=== PATIENT | male | born 1965 | race Caucasian/White ===

== ENCOUNTER → 2016-07-24 | Outpatient (CLI) | payer BC ==
--- NOTE | 2016-07-24 09:43 | FL ---
EXAMINATION TYPE: FL UGI DATE OF EXAM: 07/24/2016 9:27 AM COMPARISON: April 10, 2008 HISTORY: 50-year-old male with dysphagia, gagging, feeling of fullness at the mid chest level. Waking up coughing at night. TECHNIQUE: A double contrast UGI study is performed. FINDINGS: The esophagus shows normal motility and emptying into the stomach. There is a small sliding hiatal hernia but multiple episodes of severe gastroesophageal reflux even w ith small changes in positioning when the patient is supine. The stomach shows normal distensibility and mucosal folds. No abnormal filling defects. The duodenal bulb, sweep, and proximal small bowel loops are unremarkable. IMPRESSION: 1. Small sliding hiatal hernia but with multiple episodes of severe gastroesophageal reflux. This occ urs with even small changes in positioning when the patient is supine. 2. Otherwise, unremarkable upper GI examination.
== END | disposition home or self-care (01) ==
LOC: RADFLWHC 08:35
PROVIDERS: ATTEND Family Medicine
DX: K21.9 Gastro-esophageal reflux disease without esophagitis (principal); K44.9 Diaphragmatic hernia without obstruction or gangrene
CPT/HCPCS: 74240

== ENCOUNTER 2016-08-21 12:11 | Day surgery (SDC) | payer BC ==
[2016-08-20 09:05] VITALS: BMI 48.6
[~2016-08-21 12:11] MED LIST: LACTATED RINGERS 1,000 ML IV SCH; LIDOCAINE 1% 20 ML VIAL (10MG/ML) FOR IV START INTRADERMA PRN
[2016-08-21 13:46] VITALS: RESP 18; TEMP 97.5
[2016-08-21 13:54] LABS: Glucose,Whole Blood 277 mg/dL (75-99)
[2016-08-21] MEDS ORDERED: PROPOFOL 10 MG/ML 20 ML VIAL IV ONE (14:56)
[2016-08-21 15:23] LABS: Glucose,Whole Blood 219 mg/dL (75-99)
[2016-08-21 15:51] VITALS: BP 131/83; PULSE 80
--- NOTE | 2016-08-21 16:22 | P.PCN ---
Date of Procedure: 08/21/16 Preoperative Diagnosis: Postoperative Diagnosis: Procedure(s) Performed: Procedure: Esophagogastroduodenoscopy and biopsy. Preoperative diagnosis: Chronic reflux symptoms. Postoperative diagnosis: 1. Sliding hiatal hernia with no obvious esophagitis or complicated reflux disease. 2. Widely patent mucosal ring at the level of the GE junction. 3. Mild gastritis. Multiple biopsies obtained from the duodenum, antrum, esophagus as well as separate biopsies from the GE junction. Preparation and sedation were provided by anesthesia. Brief clinical history: The patient is a 50-year-old male who is referred for this evaluation because of chronic gastroesophageal reflux symptoms including episodes of nocturnal reflux and aspiration and cough as well as intermittent dysphagia. There is no overt bleeding or weight loss. The patient has been started on omeprazole recently and these reporting signs of improvement. This evaluation is to assess for esophagitis, complicated reflux disease or other pathology. Procedure: With the patient on his left lateral decubitus position and after informed consent and adequate sedation, I passed the Olympus-GIF 160 video upper endoscope through the cricopharyngeus down the esophagus. GE junction was irregular and there was a sliding hiatal hernia around 2-3 cm in size, but there was no obvious esophagitis, strictures, Gong's esophagus or other pathology. At the level of the GE junction there was a widely patent mucosal ring that did not impede the advancement of the endoscope and its size, both in the forward view as well as in the retroflex view in the cardia, showed no need for dilation. But because of his symptoms, I still took biopsies at the level of the GE junction attempting to break the continuity of this ring. The stomach was insufflated with air and examined in detail including the retroflex view in the cardia as mentioned. There was some mottling and erythema in the antrum but no ulcers or erosions. Pyloric channel, duodenal bulb, post bulbar area and descending duodenum showed minimal erythema. Because of his symptoms I obtained biopsies from the duodenum, antrum, esophagus as well as the GE junction before the endoscope was withdrawn. The patient tolerated the procedure well Plan: The patient was reassured and I discussed with his parents who are accompanying him for this procedure today. Will await biopsy results. With his improvement on this regimen, I suggested that he continue the same and to follow up with you as planned. I would be happy to see in the office if his symptoms do not continue to improve or if there is a setback. Implants: Indications for Procedure: Operative Findings: Description of Procedure:
== END 2016-08-21 15:53 | disposition home or self-care (01) ==
LOC: ORWHC2ENDO 12:11
DX: K21.9 Gastro-esophageal reflux disease without esophagitis (principal); K29.50 Unspecified chronic gastritis without bleeding; K44.9 Diaphragmatic hernia without obstruction or gangrene; I10 Essential (primary) hypertension; E11.9 Type 2 diabetes mellitus without complications; Z79.84 Long term (current) use of oral hypoglycemic drugs; Z79.4 Long term (current) use of insulin; Z79.899 Other long term (current) drug therapy
CPT/HCPCS: 43239; 88305; 88342; J2704

== ENCOUNTER → 2017-01-30 | Outpatient (CLI) | payer BC ==
--- NOTE | 2017-01-30 13:02 | MR ---
EXAMINATION TYPE: MR lumbar spine wo con DATE OF EXAM: 01/30/2017 COMPARISON: NONE HISTORY: 51-year-old male with pain TECHNIQUE: Multiplanar, multisequence images of the lumbar spine were acquired. FINDINGS: Vertebral body heights are preserved. Alignment is maintained. Mild heterogeneous marrow signal without suspicious bone marrow placement. A some fatty Modic type II endplate changes anteriorly at L3-L4. Variable minimal disc desiccation lower lumbar spine, more mild to moderate at L5-S1 with some vacuum phenomenon and bulging disc. Posterior annular fissure is also noted here. Unable to accurately determine the level of the conus medullaris due to marked crowding of the cauda equina nerve roots secondary to underlying congenital spinal canal stenosis. AP canal dimension measu res only 9 mm in the mid to lower lumbar spine and additionally, there is some mildly prominent epidu ral fat in the lower lumbar spine. At T12-L1, mild overall spinal canal narrowing without cord compression or neural foraminal stenosis. At L1-L2, mild overall spinal canal narrowing without cord compression or neuroforaminal stenosis. At L2-L3, there is complete effacement of CSF signal due to the congenital spinal canal narrowing. Mi ld facet degenerative change without significant neuroforaminal stenosis. At L3-L4, there is facet degenerative change, congenital canal narrowing, and mildly prominent epidur al fat. Overall moderate spinal canal stenosis with minimal CSF signal at this level. No significant neuroforaminal stenosis. At L4-L5, mild congenital canal narrowing and mild facet degenerative change. Mild overall spinal can al stenosis and no neuroforaminal stenosis. At L5-S1, bulging disc with posterior annular fissure, congenital canal narrowing, and prominent epid ural fat. Changes result in moderate overall thecal sac compression with moderate bilateral neurofora char stenosis. No prevertebral or paravertebral soft tissue abnormality seen. IMPRESSION: 1. 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 This re sults in complete effacement of CSF signal at L2-L3 suggesting a relative moderate to severe spinal c anal stenosis. 2. Overall moderate spinal canal stenosis at L3-L4 with only minimal CSF signal seen at this level. 3. Mild overall spinal canal stenosis at L4-L5 and moderate at L5-S1 as there is superimposed degener ative disc disease and some prominent epidural fat. 4. Moderate bilateral neuroforaminal stenoses at L5-S1. 5. Note that we are unable to accurately determine the level of the conus medullaris due to marked cr owding of the cauda equina nerve roots.
== END | disposition home or self-care (01) ==
LOC: RADMRIMAIN 12:03
PROVIDERS: ATTEND Physician Assistant
DX: M48.061 Spinal stenosis, lumbar region without neurogenic claudication (principal); M99.73 Connective tissue and disc stenosis of intervertebral foramina of lumbar region; M51.36 Other intervertebral disc degeneration, lumbar region; M51.37 Other intervertebral disc degeneration, lumbosacral region
CPT/HCPCS: 72148

== ENCOUNTER 2019-05-09 20:07 | Inpatient (IN) | payer BC ==
[2019-05-09] MEDS ORDERED: VANCOMYCIN IV PER PHARMACY 1 EACH MISC MISCELLANE PRN (21:38)
[2019-05-09] MEDS ORDERED: PIPERACILLIN-TAZOBACTAM 3.375 GM in SODIUM CHLORIDE 0.9% 100 ML IVPB STA (21:38)
--- NOTE | 2019-05-09 21:38 | ED ---
Skin/Abscess/FB HPI - General Chief complaint: Skin/Abscess/Foreign Body Stated complaint: infection in arm/hand Time Seen by Provider: 05/09/19 21:14 Source: patient Mode of arrival: ambulatory Limitations: no limitations - History of Present Illness Initial comments: Sven is a 53-year-old diabetic male with a history of staph skin infections in the past. Patient presents the emergency department today for evaluation of worsening infection on his right hand and right forearm. Patient reports that he noticed some redness and what looked to him like small bug bites similar to his previous staph infection. He noticed these on his hand yesterday and was evaluated in the clinic where he was prescribed Bactrim. Patient reports she's been compliant with this medication but is noticed progressively worsening swelling redness and pain. Patient reports he has abscesses on both the back of his hand and dorsal surface of his right forearm. He has a healing abscess on his left middle finger as well. Patient reports that today been unable to con trol his sugars this combined with his infection prompted him to the ER for further evaluation. - Related Data Home Medications Medication Instructions Recorded Confirmed Insulin Lispro [humaLOG Kwikpen] 0 unit SQ TID-W/MEALS PRN 08/20/16 08/21/16 Lisinopril [Zestril] 10 mg PO DAILY 08/20/16 08/21/16 Omeprazole [PriLOSEC] 20 mg PO BID 08/20/16 08/21/16 metFORMIN HCL [Metformin HCl] 1,000 mg PO BID 08/20/16 08/21/16 Allergies Allergy/AdvReac Type Severity Reaction Status Date / Time No Known Allergies Allergy Verified 05/09/19 20:28 Review of Systems ROS Statement: Those systems with pertinent positive or pertinent negative responses have been documented in the HPI. ROS Other: All systems not noted in ROS Statement are negative. Past Medical History Past Medical History: Diabetes Mellitus, GERD/Reflux, Hypertension Additional Past Medical History / Comment(s): occ. pain with swallowing, hiatal hernia, dry skin, hx kidney stones History of Any Multi-Drug Resistant Organisms: None Reported Past Surgical History: Ear Surgery, Orthopedic Surgery Additional Past Surgical History / Comment(s): cystoscopy/stent in urethra, olga carpal tunnel, trigger finger left thumb, rt thumb surgery Past Anesthesia/Blood Transfusion Reactions: Motion Sickness Additional Past Anesthesia/Blood Transfusion Reaction / Comment(s): dizziness Past Psychological History: No Psychological Hx Reported Smoking Status: Former smoker - Past Family History Mother Family Medical History: No Reported History General Exam - General Exam Comments Initial Comments: Physical Exam GENERAL: Patient is well-developed and well-nourished. Patient is nontoxic and well-hydrated and is in no distress. HENT: Normocephalic, Atraumatic. EYES: PERRL, EOMI PULMONARY: Unlabored respirations. CARDIOVASCULAR: RRR ABDOMEN: Soft and nontender with normal bowel sounds. Obese SKIN: There are small abscess on the dorsum of the right hand and right forearm, erythema and induration of the forearm and hand consistent with cellulitis No fusiform swelling of the fingers, no pain with passive extension, no tenderness along flexor sheath - No concern for flexor tenosynovitis : Deferred NEUROLOGIC: Patient is alert and oriented x3. Moving all extremities spontaneously MUSCULOSKELETAL: Normal extremities with adequate strength and full range of motion. No lower extremity swelling or edema. No calf tenderness. PSYCHIATRIC: Normal psychiatric evaluation. Limitations: no limitations Course Vital Signs 05/09/19 20:24 Temperature 98.0 F Pulse Rate 110 H Respiratory 20 Rate Blood Pressure 154/100 O2 Sat by Pulse 97 Oximetry Medical Decision Making - Medical Decision Making The patient was seen and evaluated history is obtained from the patient and signed 53-year-old diabetic male was seen in the office yesterday answered on oral antibiotics which is been compliant with. Patient has worsening cellulitis of the forearm or development of 2 small punctate abscesses with no larger fluctuance amenable to decision and drainage. A septic workup was initiated broad-spectrum antibiotics were ordered Labs resulted with no significant abnormalities aside from profound hyperglycemia likely related to infection Insulin was ordered as well as IV fluids for hyperglycemia Patient care was discussed with admitting physician Dr. Buenrostro, considering that this is a orally controlled diabetic male with obvious infection of the hand and forearm failed outpatient treatment we will plan to admit for IV antibiotics. - Lab Data Result diagrams: 05/09/19 21:40 05/09/19 21:40 Lab Results 05/09/19 05/09/19 05/09/19 Range/Units 21:40 21:40 21:40 WBC 9.8 (3.8-10.6) k/uL RBC 5.56 (4.30-5.90) m/uL Hgb 16.5 (13.0-17.5) gm/dL Hct 49.2 (39.0-53.0) % MCV 88.6 (80.0-100.0) fL MCH 29.6 (25.0-35.0) pg MCHC 33.4 (31.0-37.0) g/dL RDW 12.9 (11.5-15.5) % Plt Count 328 (150-450) k/uL Neutrophils % 74 % Lymphocytes % 18 % Monocytes % 5 % Eosinophils % 2 % Basophils % 0 % Neutrophils # 7.3 (1.3-7.7) k/uL Lymphocytes # 1.7 (1.0-4.8) k/uL Monocytes # 0.5 (0-1.0) k/uL Eosinophils # 0.2 (0-0.7) k/uL Basophils # 0.0 (0-0.2) k/uL PT 9.3 (9.0-12.0) sec INR 0.9 (<1.2) APTT 22.0 (22.0-30.0) sec Sodium 131 L (137-145) mmol/L Potassium 4.5 (3.5-5.1) mmol/L Chloride 95 L (98-107) mmol/L Carbon Dioxide 25 (22-30) mmol/L Anion Gap 11 mmol/L BUN 20 (9-20) mg/dL Creatinine 0.89 (0.66-1.25) mg/dL Est GFR (CKD-EPI)AfAm >90 (>60 ml/min/1.73 sqM) Est GFR (CKD-EPI)NonAf >90 (>60 ml/min/1.73 sqM) Glucose 598 H* (74-99) mg/dL POC Glucose (mg/dL) (75-99) mg/dL POC Glu Clinical Business Analyst ID Plasma Lactic Acid Mike (0.7-2.0) mmol/L Calcium 9.8 (8.4-10.2) mg/dL Total Bilirubin 0.5 (0.2-1.3) mg/dL AST 20 (17-59) U/L ALT 26 (4-49) U/L Alkaline Phosphatase 142 H (38-126) U/L Total Protein 7.3 (6.3-8.2) g/dL Albumin 4.5 (3.5-5.0) g/dL 05/09/19 05/09/19 Range/Units 21:40 22:12 WBC (3.8-10.6) k/uL RBC (4.30-5.90) m/uL Hgb (13.0-17.5) gm/dL Hct (39.0-53.0) % MCV (80.0-100.0) fL MCH (25.0-35.0) pg MCHC (31.0-37.0) g/dL RDW (11.5-15.5) % Plt Count (150-450) k/uL Neutrophils % % Lymphocytes % % Monocytes % % Eosinophils % % Basophils % % Neutrophils # (1.3-7.7) k/uL Lymphocytes # (1.0-4.8) k/uL Monocytes # (0-1.0) k/uL Eosinophils # (0-0.7) k/uL Basophils # (0-0.2) k/uL PT (9.0-12.0) sec INR (<1.2) APTT (22.0-30.0) sec Sodium (137-145) mmol/L Potassium (3.5-5.1) mmol/L Chloride (98-107) mmol/L Carbon Dioxide (22-30) mmol/L Anion Gap mmol/L BUN (9-20) mg/dL Creatinine (0.66-1.25) mg/dL Est GFR (CKD-EPI)AfAm (>60 ml/min/1.73 sqM) Est GFR (CKD-EPI)NonAf (>60 ml/min/1.73 sqM) Glucose (74-99) mg/dL POC Glucose (mg/dL) 534 H (75-99) mg/dL POC Glu Clinical Business Analyst ID [place] Plasma Lactic Acid Mike 1.4 (0.7-2.0) mmol/L Calcium (8.4-10.2) mg/dL Total Bilirubin (0.2-1.3) mg/dL AST (17-59) U/L ALT (4-49) U/L Alkaline Phosphatase (38-126) U/L Total Protein (6.3-8.2) g/dL Albumin (3.5-5.0) g/dL Disposition Clinical Impression: Cellulitis and abscess of hand, Uncontrolled diabetes mellitus Disposition: ADMITTED IP TO THIS HOSP Condition: Serious Is patient prescribed a controlled substance at d/c from ED?: No Referrals: Julian Carranza MD [Primary Care Provider] - 1-2 days
[2019-05-09] MEDS ORDERED: VANCOMYCIN 1,750 MG in SODIUM CHLORIDE 0.9% 500 ML 500 ML IVPB STA (21:43)
[2019-05-09 21:56] LABS: Basophils % (A) 0 %; Eosinophils # (A) 0.2 k/uL (0-0.7); Eosinophils % (A) 2 %; HCT 49.2 % (39.0-53.0); HGB 16.5 gm/dL (13.0-17.5); Lymphocytes # (A) 1.7 k/uL (1.0-4.8); Lymphocytes % (A) 18 %; MCH 29.6 pg (25.0-35.0); MCHC 33.4 g/dL (31.0-37.0); MCV 88.6 fL (80.0-100.0); Mean Platelet Volume 7.4; Monocytes # (A) 0.5 k/uL (0-1.0); Monocytes % (A) 5 %; Neutrophils # (A) 7.3 k/uL (1.3-7.7); Neutrophils % (A) 74 %; Platelet Count 328 k/uL (150-450); RBC 5.56 m/uL (4.30-5.90); RDW 12.9 % (11.5-15.5); WBC 9.8 k/uL (3.8-10.6)
[2019-05-09] MEDS: SODIUM CHLORIDE 0.9% 1,000 ML IV SCH (21:58)
[2019-05-09 22:03] LABS: ALT 26 U/L (4-49); AST 20 U/L (17-59); African American GFR (CKD) >90 (>60 ml/min/1.73 sqM); Albumin 4.5 g/dL (3.5-5.0); Alkaline Phosphatase 142 U/L (38-126); Anion Gap 11 mmol/L; Blood Urea Nitrogen 20 mg/dL (9-20); Calcium 9.8 mg/dL (8.4-10.2); Carbon Dioxide 25 mmol/L (22-30); Chloride 95 mmol/L (98-107); Non-African American GFR(CKD) >90 (>60 ml/min/1.73 sqM); Potassium 4.5 mmol/L (3.5-5.1); Sodium 131 mmol/L (137-145); Total Bilirubin 0.5 mg/dL (0.2-1.3); Total Protein 7.3 g/dL (6.3-8.2)
[2019-05-09 22:07] LABS: Glucose 598 mg/dL (74-99)
[2019-05-09] MEDS ORDERED: INSULIN REGULAR 100 UNIT/ML VIAL SQ ONE (22:13)
[2019-05-09] MEDS ORDERED: NALOXONE 0.4 MG/ML 1 ML VIAL IV PRN (22:16)
[2019-05-09] MEDS: SODIUM CHLORIDE 0.9% 500 ML 500 ML IV SCH ×3 (22:17→22:45)
[2019-05-09 22:20] LABS: Glucose,Whole Blood 534 mg/dL (75-99)
[2019-05-09 22:22] LABS: INR 0.9 (<1.2); Prothrombin Time 9.3 sec (9.0-12.0)
[2019-05-09 23:09] LABS: Glucose,Whole Blood 428 mg/dL (75-99)
--- NOTE | 2019-05-09 23:59 | P.HPIM ---
History of Present Illness H&P Date: 05/09/19 Chief Complaint: right upper extremity abscess 53-year-old male with diabetes on insulin Patient comes in due to 4 day history of right upper extremity abscess and redness. 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 He reports some chills and subjective fever. Reports recent history of similar situation of cellulitis and abscess of his left upper extremity that happened around February 2019. He described the pain as sharp severe pain 10 out of 10 in severity spatially with movement and touching the areas of redness and swelling. He reports draining abscess from his hand over the base of the right index. He also reports recent abscess under his right armpit which was incised. Otherwise he denies any shortness of breath or chest pain he denies any recent traveling or spending any time in the [place]. Patient denies any injuries. To his right upper extremity. He also noted that his blood sugar has been difficult to control over the past few days. Patient otherwise denies any GI symptoms or urinary changes. Patient reports chronic history of peripheral neuropathy in his lower extremities. Review of Systems Pertinent positives as noted in HPI. All other systems were reviewed and are negative Past Medical History Past Medical History: Diabetes Mellitus, GERD/Reflux, Hypertension Additional Past Medical History / Comment(s): occ. pain with swallowing, hiatal hernia, dry skin, hx kidney stones History of Any Multi-Drug Resistant Organisms: None Reported Past Surgical History: Ear Surgery, Orthopedic Surgery Additional Past Surgical History / Comment(s): cystoscopy/stent in urethra, olga carpal tunnel, trigger finger left thumb, rt thumb surgery Past Anesthesia/Blood Transfusion Reactions: Motion Sickness Additional Past Anesthesia/Blood Transfusion Reaction / Comment(s): dizziness Past Psychological History: No Psychological Hx Reported Smoking Status: Former smoker - Past Family History Mother Family Medical History: No Reported History Medications and Allergies Home Medications Medication Instructions Recorded Confirmed Type Insulin Lispro [humaLOG Kwikpen] 20 unit SQ AC-TID 08/20/16 05/09/19 History Omeprazole [PriLOSEC] 20 mg PO DAILY 08/20/16 05/09/19 History Gabapentin 600 mg PO DAILY 05/09/19 05/09/19 History Ibuprofen [Motrin] 800 mg PO AC-TID PRN 05/09/19 05/09/19 History Insulin Glargine,Hum.rec.anlog 40 unit SQ BID 05/09/19 05/09/19 History [Lantus Solostar] Mupirocin 2% Oint [Bactroban 2% 1 applic TOPICAL TID 05/09/19 05/09/19 History Oint] Sulfamethox-Tmp 800-160Mg [Bactrim 1 tab PO Q12H 05/09/19 05/09/19 History DS 800-160 mg] Allergies Allergy/AdvReac Type Severity Reaction Status Date / Time metformin AdvReac Nausea & Verified 05/09/19 22:29 Vomiting & Diarrhea Physical Exam Vitals: Vital Signs Temp Pulse Resp BP Pulse Ox 05/09/19 20:24 98.0 F 110 H 20 154/100 97 Intake and Output 05/09/19 05/09/19 05/09/19 06:59 14:59 22:59 Other: Weight 108.862 kg Constitutional: No acute distress, conversant, pleasant Eyes: Anicteric sclerae, moist conjunctiva, no lid-lag Pupils equal round reactive to light ENMT: NC/AT Oropharynx clear, no erythema, exudates Neck: Supple, FROM, no masses, or JVD No carotid bruits No thyromegaly Lungs: Clear to auscultation Clear to percussion Normal respiratory effort, no accessory muscle use Cardiovascular: Heart regular in rate and rhythm, No murmurs, gallops, or rubs Trace leg edema bilaterally Abdominal: Soft Nontender, no guarding, rebound or rigidity Abdomen moving with respiration Normoactive bowel sounds No hepatomegaly, No splenomegaly No palpable mass No abdominal wall hernia noted Skin: Significant swelling and erythema with induration over the dorsum of right hand with an abscess over the dorsum of base of the right index warm to the touch tender to palpation no active drainage. There is another area of erythema induration and abscess over the ventral aspect of the right mid forearm. Capillary refill is immediate over the right hand Otherwise Normal temperature, tone, texture, turgor Extremities: No digital cyanosis No clubbing Pedal pulses intact and symmetrical Radial pulses intact and symmetrical No calf tenderness Psychiatric: Alert and oriented to person, place and time Appropriate affect fair judgement Neuro Muscles Strength 5/5 in bilateral lower extremities. And left upper extremity.. However right upper extremity distal muscle groups over the right hand in the right forearm limited exam due to pain with active range of motion Sensation to light touch grossly present throughout Cranial nerves II-XII grossly intact No focal sensory deficits Lymphatics: no palpable cervical or supraclavicular , or inguinal lymph nodes Results CBC & Chem 7: 05/09/19 21:40 05/09/19 21:40 Labs: Abnormal Lab Results - Last 24 Hours (Table) 05/09/19 Range/Units 21:40 Sodium 131 L (137-145) mmol/L Chloride 95 L (98-107) mmol/L Glucose 598 H* (74-99) mg/dL Alkaline Phosphatase 142 H (38-126) U/L Assessment and Plan Assessment: 53-year-old male with insulin-dependent diabetes comes in due to cellulitis and abscess of the right upper extremity failed outpatient therapy with oral antibiotics. Admitted as an inpatient with anticipated length of stay more than 2 midnights Plan: right upper extremity cellulitis and abscess failed outpatient therapy IDDM with hyperglycemia pseudohyponatremia due to hyperglycemia plan follow up cultures monitor progress of right upper extremity cellulitis , area was marked empiric ABx with vanco , dosing by pharmacy pain control, with NSAIDs and opioids elevated right upper extremity IVF hydration insulin sliding scale resume home dose of basal insulin Check A1 C CODE STATUS: full code DVT prophylaxis: heparin sc tid Discussed with: Patient, ER, RN Anticipated length of stay > than [address]: home A total of 60 minutes was spent on the care of this complex patient more than 50% of the time was spent in counseling and care coordination.
[2019-05-10] MEDS ORDERED: MORPHINE SULFATE 4 MG/ML SYRINGE IVP PRN
[2019-05-10] MEDS ORDERED: INSULIN DETEMIR (LEVEMIR) 100 UNIT/ML SYR SQ SCH ×2 (03:58)
[2019-05-10] MEDS: SODIUM CHLORIDE 0.9% 1,000 ML IV SCH ×2 (06:05→16:18)
[2019-05-10 06:47] LABS: Glucose,Whole Blood 215 mg/dL (75-99)
[2019-05-10 07:50] LABS: Basophils # (A) 0.1 k/uL (0-0.2); Basophils % (A) 1 %; Eosinophils # (A) 0.3 k/uL (0-0.7); Eosinophils % (A) 4 %; HCT 44.1 % (39.0-53.0); HGB 14.9 gm/dL (13.0-17.5); Lymphocytes # (A) 2.5 k/uL (1.0-4.8); Lymphocytes % (A) 31 %; MCH 29.7 pg (25.0-35.0); MCHC 33.8 g/dL (31.0-37.0); MCV 87.7 fL (80.0-100.0); Mean Platelet Volume 7.4; Monocytes # (A) 0.5 k/uL (0-1.0); Monocytes % (A) 7 %; Neutrophils # (A) 4.4 k/uL (1.3-7.7); Neutrophils % (A) 56 %; Platelet Count 280 k/uL (150-450); RBC 5.03 m/uL (4.30-5.90); RDW 12.9 % (11.5-15.5); WBC 7.9 k/uL (3.8-10.6)
[2019-05-10] MEDS: GABAPENTIN 300 MG CAP PO SCH (07:58)
[2019-05-10] MEDS: PANTOPRAZOLE 40 MG TABLET PO SCH (07:58)
[2019-05-10] MEDS: HEPARIN SODIUM,PORCINE 5,000 UNIT/ML 1 ML VIAL SQ SCH ×4 (07:59→23:35)
[2019-05-10 08:05] LABS: African American GFR (CKD) >90 (>60 ml/min/1.73 sqM); Anion Gap 8 mmol/L; Blood Urea Nitrogen 16 mg/dL (9-20); Calcium 8.9 mg/dL (8.4-10.2); Carbon Dioxide 23 mmol/L (22-30); Chloride 104 mmol/L (98-107); Glucose 224 mg/dL (74-99); Non-African American GFR(CKD) >90 (>60 ml/min/1.73 sqM); Potassium 4.1 mmol/L (3.5-5.1); Sodium 135 mmol/L (137-145)
[2019-05-10] MEDS: INSULIN ASPART (NovoLOG) 100 UNIT/ML VIAL SQ SCH ×7 (08:06→20:25)
[2019-05-10] MEDS ORDERED: VANCOMYCIN 1,750 MG in SODIUM CHLORIDE 0.9% 500 ML 500 ML IVPB SCH (10:00)
[2019-05-10 11:37] LABS: Glucose,Whole Blood 64 mg/dL (75-99)
[2019-05-10 12:03] LABS: Glucose,Whole Blood 78 mg/dL (75-99)
--- NOTE | 2019-05-10 15:54 | P.PN ---
Progress Note - Text Progress Note Date: 05/10/19 Presenting complaint: Redness right hand History of presenting complaint: Patient admitted with areas of localized abscess in the right hand for an right armpit and surrounding cellulitis. Failed outpatient treatment with Bactrim. No fevers. Started with with IV vancomycin. Today-redness in the right arm is much improved. Areas of localized boil on the right hand laly and the armpit feeling much better. No fever no chills. Able to use his hand better. Review of systems: Was done for constitutional, cardiovascular, GI, pulmonary. relevant finding as above Active Medications Gabapentin (Neurontin) 600 mg PO DAILY [facility] Last Admin: 05/10/19 07:58 Dose: 600 mg Documented by: Heparin Sodium (Porcine) (Heparin) 5,000 unit SQ Q8H [facility] Last Admin: 05/10/19 07:59 Dose: 5,000 unit Documented by: Vancomycin HCl 1,750 mg/ (Sodium Chloride) 500 mls @ 167 mls/hr IVPB Q8H [facility] Ibuprofen (Motrin) 800 mg PO AC-TID PRN PRN Reason: Pain Insulin Aspart (Novolog) 0 unit SQ ACHS [facility]; Protocol Last Admin: 05/10/19 11:49 Dose: Not Given Documented by: Insulin Aspart (Novolog) 15 unit SQ AC-TID [facility] Insulin Detemir (Levemir) 60 unit SQ HS [facility] Miscellaneous Information (Vancomycin Trough Due) 0 each MISCELLANE DIRECTED ONE Stop: 05/11/19 17:01 Morphine Sulfate (Morphine Sulfate (Inj)) 4 mg IVP Q4HR PRN PRN Reason: Pain Last Admin: 05/10/19 08:00 Dose: 4 mg Documented by: Naloxone HCl (Narcan) 0.2 mg IV Q2M PRN PRN Reason: Opioid Reversal Pantoprazole Sodium (Protonix) 40 mg PO DAILY [facility] Last Admin: 05/10/19 07:58 Dose: 40 mg Documented by: On examination: VITAL SIGNS: 97, 76, 20, 120/80, 100% on room air GENERAL APPEARANCE: BMI 36.5, sitting up on the bed, comfortable. HEENT: Normal external appearance of nose and ear. Oral cavity normal EYES: Pupils equal. Conjunctiva normal. NECK: JVD not raised. Mass not palpable. RESPIRATORY: Respiratory effort normal. Lungs clear to auscultation. CARDIOVASCULAR: First and second sounds normal. No edema. ABDOMEN: Soft. Liver and spleen not palpable. No tenderness. No mass palpable. PSYCHIATRY: Alert and oriented x3. Mood and affect normal. EXTREMITIES: Area that was skin marked greatly improved redness. Patient has a boil on the dorsum of the right hand, also on the forehead, and the right armpit, minimal tenderness INVESTIGATIONS, reviewed in the clinical context: White count 7.9 hemoglobin 40.9 platelets 280 potassium 4.1 creatinine 0.72 Accu-Cheks 215, 64, 78 Assessment: -Acute severe cellulitis and localized abscess in 3 different spots in the patient's had previous infection of the arm. Having failed outpatient treatment with Bactrim. Responding to vancomycin. -Obesity BMI 36.5 -Diabetes mellitus type 2, uncontrolled with hypoglycemia -GERD -Essential hypertension -Hiatal hernia Plan: Continue with IV vancomycin at least for 24 hours. Discussed with the patient. Did advise him to use gloves as a skin is rather dry. He has been more cautious for the same. We'll contact the Levemir to 60 units subcu daily at bedtime. Also cut back on the scheduled NovoLog to 15 units with meals. Follow Accu- Cheks closely.
[2019-05-10 16:14] LABS: Hemoglobin A1C 12.9 % (4.0-6.0)
[2019-05-10 17:07] LABS: Glucose,Whole Blood 202 mg/dL (75-99)
[2019-05-10] MEDS: VANCOMYCIN 1,750 MG in SODIUM CHLORIDE 0.9% 500 ML 500 ML IVPB SCH (17:27)
[2019-05-10] MEDS: IBUPROFEN 800 MG TAB PO PRN (18:27)
[2019-05-10 19:51] LABS: Glucose,Whole Blood 212 mg/dL (75-99)
[2019-05-10] MEDS ORDERED: ONDANSETRON 4 MG/2 ML VIAL IVP PRN (20:08)
[2019-05-10] MEDS: INSULIN DETEMIR (LEVEMIR) 100 UNIT/ML SYR SQ SCH (20:25)
[2019-05-11] MEDS: VANCOMYCIN 1,750 MG in SODIUM CHLORIDE 0.9% 500 ML 500 ML IVPB SCH ×3 (02:51→18:01)
[2019-05-11 07:00] LABS: Glucose,Whole Blood 80 mg/dL (75-99)
[2019-05-11] MEDS: INSULIN ASPART (NovoLOG) 100 UNIT/ML VIAL SQ SCH ×7 (07:35→20:25)
[2019-05-11] MEDS: PANTOPRAZOLE 40 MG TABLET PO SCH (08:19)
[2019-05-11] MEDS: HEPARIN SODIUM,PORCINE 5,000 UNIT/ML 1 ML VIAL SQ SCH ×3 (08:19→23:32)
[2019-05-11] MEDS: GABAPENTIN 300 MG CAP PO SCH (08:19)
[2019-05-11 11:01] LABS: Glucose,Whole Blood 163 mg/dL (75-99)
[2019-05-11 12:07] VITALS: BMI 36.5
[2019-05-11 16:56] LABS: Glucose,Whole Blood 79 mg/dL (75-99)
[2019-05-11] MEDS ORDERED: VANCOMYCIN TROUGH DUE 1 EACH MISC MISCELLANE ONE (17:00)
[2019-05-11 20:02] LABS: Glucose,Whole Blood 237 mg/dL (75-99)
--- NOTE | 2019-05-11 20:16 | P.PN ---
Progress Note - Text Progress Note Date: 05/11/19 Presenting complaint: Redness right hand History of presenting complaint: Patient admitted with areas of localized abscess in the right hand for an right armpit and surrounding cellulitis. Failed outpatient treatment with Bactrim. No fevers. Started with with IV vancomycin. Today-. Wrist and the arm is slowly improving. Some areas of localized abscess slowly improving. No fever or chills. Review of systems: Was done for constitutional, cardiovascular, GI, pulmonary. relevant finding as above Active Medications Gabapentin (Neurontin) 600 mg PO DAILY [facility] Last Admin: 05/11/19 08:19 Dose: 600 mg Documented by: Heparin Sodium (Porcine) (Heparin) 5,000 unit SQ Q8H [facility] Last Admin: 05/11/19 17:44 Dose: Not Given Documented by: Vancomycin HCl 1,750 mg/ (Sodium Chloride) 500 mls @ 167 mls/hr IVPB Q8H [facility] Stop: 05/11/19 21:00 Last Admin: 05/11/19 18:01 Dose: 167 mls/hr Documented by: Vancomycin HCl 1,500 mg/ (Sodium Chloride) 250 mls @ 125 mls/hr IVPB Q8H [facility] Ibuprofen (Motrin) 800 mg PO AC-TID PRN PRN Reason: Pain Last Admin: 05/10/19 18:27 Dose: 800 mg Documented by: Insulin Aspart (Novolog) 0 unit SQ ACHS [facility]; Protocol Last Admin: 05/11/19 17:43 Dose: Not Given Documented by: Insulin Aspart (Novolog) 15 unit SQ AC-TID [facility] Last Admin: 05/11/19 17:43 Dose: Not Given Documented by: Insulin Detemir (Levemir) 60 unit SQ HS [facility] Last Admin: 05/10/19 20:25 Dose: 60 unit Documented by: Morphine Sulfate (Morphine Sulfate (Inj)) 4 mg IVP Q4HR PRN PRN Reason: Pain Last Admin: 05/10/19 08:00 Dose: 4 mg Documented by: Naloxone HCl (Narcan) 0.2 mg IV Q2M PRN PRN Reason: Opioid Reversal Ondansetron HCl (Zofran) 4 mg IVP Q6HR PRN PRN Reason: Nausea And Vomiting Last Admin: 05/10/19 20:19 Dose: 4 mg Documented by: Pantoprazole Sodium (Protonix) 40 mg PO DAILY [facility] Last Admin: 05/11/19 08:19 Dose: 40 mg Documented by: On examination: VITAL SIGNS: 98, 82, 20, 120/78, 100% on room air GENERAL APPEARANCE: Laying in bed comfortable. HEENT: Normal external appearance of nose and ear. Oral cavity normal EYES: Pupils equal. Conjunctiva normal. NECK: JVD not raised. Mass not palpable. RESPIRATORY: Respiratory effort normal. Lungs clear to auscultation. CARDIOVASCULAR: First and second sounds normal. No edema. ABDOMEN: Soft. Liver and spleen not palpable. No tenderness. No mass palpable. PSYCHIATRY: Alert and oriented x3. Mood and affect normal. EXTREMITIES: Area that was skin marked greatly improved redness. Patient has a boil on the dorsum of the right hand, also on the forehead, and the right armpit, minimal tenderness INVESTIGATIONS, reviewed in the clinical context: White count 7.9 hemoglobin 40.9 platelets 280 potassium 4.1 creatinine 0.72 Assessment: -Acute severe cellulitis and localized abscess in 3 different spots in the patient's had previous infection of the arm. Having failed outpatient treatment with Bactrim. Responding to vancomycin. -Obesity BMI 36.5 -Diabetes mellitus type 2, uncontrolled with hypoglycemia, improved -GERD -Essential hypertension -Hiatal hernia Plan: Accu-Cheks are doing better. Continue with IV vancomycin. Get ID opinion.
[2019-05-11] MEDS: IBUPROFEN 800 MG TAB PO PRN (20:24)
[2019-05-11] MEDS: INSULIN DETEMIR (LEVEMIR) 100 UNIT/ML SYR SQ SCH (20:26)
[2019-05-12] MEDS: MELATONIN 3 MG TABLET PO SCH ×2 (00:09→21:27)
[2019-05-12] MEDS: VANCOMYCIN 1,500 MG in SODIUM CHLORIDE 0.9% 250 ML IVPB SCH ×3 (03:20→17:57)
[2019-05-12] MEDS: IBUPROFEN 800 MG TAB PO PRN (04:08)
[2019-05-12 07:31] LABS: Glucose,Whole Blood 115 mg/dL (75-99)
[2019-05-12] MEDS: INSULIN ASPART (NovoLOG) 100 UNIT/ML VIAL SQ SCH ×7 (07:33→20:22)
[2019-05-12 07:54] LABS: HCT 43.6 % (39.0-53.0); HGB 14.8 gm/dL (13.0-17.5); MCH 29.7 pg (25.0-35.0); MCHC 33.9 g/dL (31.0-37.0); MCV 87.7 fL (80.0-100.0); Mean Platelet Volume 7.3; Platelet Count 300 k/uL (150-450); RBC 4.98 m/uL (4.30-5.90); WBC 6.5 k/uL (3.8-10.6)
[2019-05-12] MEDS: PANTOPRAZOLE 40 MG TABLET PO SCH (08:00)
[2019-05-12] MEDS: GABAPENTIN 300 MG CAP PO SCH (08:00)
[2019-05-12] MEDS: HEPARIN SODIUM,PORCINE 5,000 UNIT/ML 1 ML VIAL SQ SCH ×2 (08:00→17:57)
[2019-05-12 08:11] LABS: African American GFR (CKD) >90 (>60 ml/min/1.73 sqM); Anion Gap 6 mmol/L; Blood Urea Nitrogen 14 mg/dL (9-20); Calcium 9.2 mg/dL (8.4-10.2); Carbon Dioxide 23 mmol/L (22-30); Chloride 107 mmol/L (98-107); Glucose 115 mg/dL (74-99); Non-African American GFR(CKD) >90 (>60 ml/min/1.73 sqM); Potassium 4.1 mmol/L (3.5-5.1); Sodium 136 mmol/L (137-145)
[2019-05-12 11:53] LABS: Glucose,Whole Blood 78 mg/dL (75-99)
--- NOTE | 2019-05-12 17:24 | P.PN ---
Progress Note - Text Progress Note Date: 05/12/19 Presenting complaint: Redness right hand History of presenting complaint: Patient admitted with areas of localized abscess in the right hand for an right armpit and surrounding cellulitis. Failed outpatient treatment with Bactrim. No fevers. Started with with IV vancomycin. Today-. Pain swelling is improving. On IV vancomycin. ID has been consulted. Review of systems: Was done for constitutional, cardiovascular, GI, pulmonary. relevant finding as above Active Medications Gabapentin (Neurontin) 600 mg PO DAILY [facility] Last Admin: 05/12/19 08:00 Dose: 600 mg Documented by: Heparin Sodium (Porcine) (Heparin) 5,000 unit SQ Q8H [facility] Last Admin: 05/12/19 08:00 Dose: 5,000 unit Documented by: Vancomycin HCl 1,500 mg/ (Sodium Chloride) 250 mls @ 125 mls/hr IVPB Q8H [facility] Last Admin: 05/12/19 10:40 Dose: 125 mls/hr Documented by: Ibuprofen (Motrin) 800 mg PO AC-TID PRN PRN Reason: Pain Last Admin: 05/12/19 04:08 Dose: 800 mg Documented by: Insulin Aspart (Novolog) 0 unit SQ ACHS [facility]; Protocol Last Admin: 05/12/19 12:38 Dose: Not Given Documented by: Insulin Aspart (Novolog) 15 unit SQ AC-TID [facility] Last Admin: 05/12/19 13:42 Dose: 15 unit Documented by: Insulin Detemir (Levemir) 60 unit SQ [facility] Last Admin: 05/11/19 20:26 Dose: 60 unit Documented by: Melatonin (Melatonin) 3 mg PO [facility] Last Admin: 05/12/19 00:09 Dose: 3 mg Documented by: Morphine Sulfate (Morphine Sulfate (Inj)) 4 mg IVP Q4HR PRN PRN Reason: Pain Last Admin: 05/10/19 08:00 Dose: 4 mg Documented by: Naloxone HCl (Narcan) 0.2 mg IV Q2M PRN PRN Reason: Opioid Reversal Ondansetron HCl (Zofran) 4 mg IVP Q6HR PRN PRN Reason: Nausea And Vomiting Last Admin: 05/10/19 20:19 Dose: 4 mg Documented by: Pantoprazole Sodium (Protonix) 40 mg PO DAILY [facility] Last Admin: 05/12/19 08:00 Dose: 40 mg Documented by: On examination: VITAL SIGNS: 98, 76, 16, 04/04/2006 9, 99% room air GENERAL APPEARANCE: Laying in bed comfortable. HEENT: Normal external appearance of nose and ear. Oral cavity normal EYES: Pupils equal. Conjunctiva normal. NECK: JVD not raised. Mass not palpable. RESPIRATORY: Respiratory effort normal. Lungs clear to auscultation. CARDIOVASCULAR: First and second sounds normal. No edema. ABDOMEN: Soft. Liver and spleen not palpable. No tenderness. No mass palpable. PSYCHIATRY: Alert and oriented x3. Mood and affect normal. EXTREMITIES: Area that was skin marked improved redness. Patient has a boil on the dorsum of the right hand, also on the forehead, and the right armpit, minimal tenderness INVESTIGATIONS, reviewed in the clinical context: White count 6.5 potassium 4.1 Blood cultures negative Assessment: -Acute severe cellulitis and localized abscess in 3 different spots in the patient's had previous infection of the arm. Having failed outpatient treatment with Bactrim. Responding to vancomycin. -Obesity BMI 36.5 -Diabetes mellitus type 2, uncontrolled with hypoglycemia, improved -GERD -Essential hypertension -Hiatal hernia Plan: Continue with IV vancomycin. Discussed with patient. Await ID input.
[2019-05-12 17:27] LABS: Glucose,Whole Blood 84 mg/dL (75-99)
[2019-05-12 20:07] LABS: Glucose,Whole Blood 76 mg/dL (75-99)
[2019-05-12] MEDS: INSULIN DETEMIR (LEVEMIR) 100 UNIT/ML SYR SQ SCH (20:25)
[2019-05-13] MEDS: HEPARIN SODIUM,PORCINE 5,000 UNIT/ML 1 ML VIAL SQ SCH ×4 (00:04→23:27)
[2019-05-13] MEDS: VANCOMYCIN 1,500 MG in SODIUM CHLORIDE 0.9% 250 ML IVPB SCH ×3 (02:29→17:48)
[2019-05-13 07:14] LABS: Glucose,Whole Blood 291 mg/dL (75-99)
--- NOTE | 2019-05-13 07:55 | P.CONS ---
History of Present Illness - Reason for Consult Consult date: 05/12/19 Right hand and arm abscess/cellulitis Requesting physician: Tang Cabrera - Chief Complaint right hand and forearm pain and swelling x few days - History of Present Illness Patient is a 53-year-old male presenting to the ER at [facility] on May 08 for evaluation of worsening pain swelling redness to the right hand and right forearm apparently he noticed an area of 4 swelling redness to the dorsum of the right hand and on the forearm few days ago patient was seen in the outpatient clinic and has been treated with oral Bactrim with the patient has been taking however he noticed to have worsening pain swelling and redness on the dorsal aspect of the right hand and the forearm also noticed to have a pain and swelling to the right axillary area patient describing the pain to be throbbing intensity almost 6-7 out of 10 and no radia tion on arrival to the ER patient has been afebrile he did have a normal white count as well as creatinine patient did have a bedside I&D of the right hand dorsum abscess patient was initially treated with Zosyn and vancomycin subsequently added infectious was consulted for further recommendation regarding antibiotic therapy. Review of Systems Positive point has been mentioned in HPI rest of the systems are negative Past Medical History Past Medical History: Diabetes Mellitus, GERD/Reflux, Hypertension Additional Past Medical History / Comment(s): occ. pain with swallowing, hiatal hernia, dry skin, hx kidney stones History of Any Multi-Drug Resistant Organisms: None Reported Past Surgical History: Ear Surgery, Orthopedic Surgery Additional Past Surgical History / Comment(s): cystoscopy/stent in urethra, olga carpal tunnel, trigger finger left thumb, rt thumb surgery Past Anesthesia/Blood Transfusion Reactions: Motion Sickness Additional Past Anesthesia/Blood Transfusion Reaction / Comm: dizziness Past Psychological History: No Psychological Hx Reported Smoking Status: Former smoker - Past Family History Mother Family Medical History: No Reported History Medications and Allergies Home Medications Medication Instructions Recorded Confirmed Type Insulin Lispro [humaLOG Kwikpen] 20 unit SQ AC-TID 08/20/16 05/09/19 History Omeprazole [PriLOSEC] 20 mg PO DAILY 08/20/16 05/09/19 History Gabapentin 600 mg PO DAILY 05/09/19 05/09/19 History Ibuprofen [Motrin] 800 mg PO AC-TID PRN 05/09/19 05/09/19 History Insulin Glargine,Hum.rec.anlog 40 unit SQ BID 05/09/19 05/09/19 History [Lantus Solostar] Mupirocin 2% Oint [Bactroban 2% 1 applic TOPICAL TID 05/09/19 05/09/19 History Oint] Sulfamethox-Tmp 800-160Mg [Bactrim 1 tab PO Q12H 05/09/19 05/09/19 History DS 800-160 mg] Allergies Allergy/AdvReac Type Severity Reaction Status Date / Time metformin AdvReac Nausea & Verified 05/09/19 22:29 Vomiting & Diarrhea Physical Exam Vitals: Vital Signs Temp Pulse Resp BP Pulse Ox 05/12/19 13:00 98 F 76 16 127/79 99 05/12/19 05:00 97.7 F 73 18 129/72 100 05/11/19 20:33 98 F 82 18 149/90 99 05/11/19 15:32 82 20 Intake and Output 05/11/19 05/12/19 05/12/19 22:59 06:59 14:59 Intake Total 250 250 Balance 250 250 Intake: Intake, IV Titration 250 250 Amount Vancomycin 1,500 mg In 250 250 Sodium Chloride 0.9% 250 ml @ 125 mls/hr IVPB Q8H [facility] Rx#:[id number] Other: Voiding Method Toilet # Voids 2 # Bowel Movements 1 GENERAL DESCRIPTION: Middle-aged male lying in bed, no distress. No tachypnea or accessory muscle of respiration use. HEENT: Shows Pallor , no scleral icterus. Oral mucous membrane is dry. NECK: Trachea central, no thyromegaly. LUNGS: Unlabored breathing. Clear to auscultation anteriorly. No wheeze or crackle. HEART: S1, S2, regular rate and rhythm. ABDOMEN: Soft, no tenderness , guarding or rigidity EXTREMITIES: No edema of feet. SKIN: Right hand dorsum did have an area of induration and open wound after I&D with minimal purulent drainage with surrounding swelling redness , right forearm also have an area of induration with surrounding swelling redness and tenderness NEUROLOGICAL: The patient is awake, alert, oriented x3, mood and affect normal. Results CBC & Chem 7: 05/12/19 07:02 05/12/19 07:02 Labs: Abnormal Lab Results - Last 24 Hours (Table) 05/11/19 05/12/19 05/12/19 Range/Units 20:01 07:02 07:21 Sodium 136 L (137-145) mmol/L Glucose 115 H (74-99) mg/dL POC Glucose (mg/dL) 237 H 115 H (75-99) mg/dL Microbiology - Last 24 Hours (Table) 05/09/19 21:40 Blood Culture - Preliminary Blood No Growth after 48 hours Assessment and Plan Assessment: -patient presented hospital with right hand dorsal and the forearm abscess and cellulitis which apparently started as folliculitis likely representing staphylococcal infection failing outpatient oral Bactrim DS therapy concern for possible community associated MRSA (1) Cellulitis and abscess of hand Current Visit: Yes Status: Acute Code(s): L03.119 - CELLULITIS OF UNSPECIFIED PART OF LIMB; L02.519 - CUTANEOUS ABSCESS OF UNSPECIFIED HAND SNOMED Code(s): 838755929 Plan: 1-vancomycin pharmacy to dose her with a target trough of 15 while watching her kidney function and Vanco trough closely. 2-dry protective dressing to the open area We will follow on clinical condition and cultures to further adjust medication if needed Thank you for this consultation we will follow the patient along with you
[2019-05-13] MEDS: ALPRAZolam 0.25 MG TAB PO PRN ×2 (08:13→22:39)
[2019-05-13] MEDS: PANTOPRAZOLE 40 MG TABLET PO SCH (08:13)
[2019-05-13] MEDS: GABAPENTIN 300 MG CAP PO SCH (08:13)
[2019-05-13] MEDS: INSULIN ASPART (NovoLOG) 100 UNIT/ML VIAL SQ SCH ×7 (08:14→20:21)
[2019-05-13 11:12] LABS: Glucose,Whole Blood 174 mg/dL (75-99)
[2019-05-13 17:04] LABS: Glucose,Whole Blood 151 mg/dL (75-99)
[2019-05-13] MEDS: IBUPROFEN 800 MG TAB PO PRN (19:06)
[2019-05-13 20:06] LABS: Glucose,Whole Blood 215 mg/dL (75-99)
[2019-05-13] MEDS: MELATONIN 3 MG TABLET PO SCH (20:20)
[2019-05-13] MEDS: INSULIN DETEMIR (LEVEMIR) 100 UNIT/ML SYR SQ SCH (20:24)
--- NOTE | 2019-05-13 20:26 | P.PN ---
Progress Note - Text Progress Note Date: 05/13/19 Presenting complaint: Redness right hand History of presenting complaint: Patient admitted with areas of localized abscess in the right hand for an right armpit and surrounding cellulitis. Failed outpatient treatment with Bactrim. No fevers. Started with with IV vancomycin. Today-. Pain swelling slowly continues to improve.. Pending culture results. Saw the patient this morning. Review of systems: Was done for constitutional, cardiovascular, GI, pulmonary. relevant finding as above Active Medications Alprazolam (Xanax) 0.25 mg PO Q6H PRN PRN Reason: Anxiety Last Admin: 05/13/19 08:13 Dose: 0.25 mg Documented by: Gabapentin (Neurontin) 600 mg PO DAILY [facility] Last Admin: 05/13/19 08:13 Dose: 600 mg Documented by: Heparin Sodium (Porcine) (Heparin) 5,000 unit SQ Q8H [facility] Last Admin: 05/13/19 17:48 Dose: 5,000 unit Documented by: Vancomycin HCl 1,500 mg/ (Sodium Chloride) 250 mls @ 125 mls/hr IVPB Q8H [facility] Last Admin: 05/13/19 17:48 Dose: 125 mls/hr Documented by: Ibuprofen (Motrin) 800 mg PO AC-TID PRN PRN Reason: Pain Last Admin: 05/13/19 19:06 Dose: 800 mg Documented by: Insulin Aspart (Novolog) 0 unit SQ [facility]; Protocol Last Admin: 05/13/19 20:21 Dose: 4 unit Documented by: Insulin Aspart (Novolog) 15 unit SQ AC-TID [facility] Last Admin: 05/13/19 17:48 Dose: 15 unit Documented by: Insulin Detemir (Levemir) 60 unit SQ [facility] Last Admin: 05/12/19 20:25 Dose: Not Given Documented by: Melatonin (Melatonin) 3 mg PO [facility] Last Admin: 05/13/19 20:20 Dose: 3 mg Documented by: Miscellaneous Information (Vancomycin Trough Due) 0 each [facility] DIRECTED ONE Stop: 05/14/19 09:01 Morphine Sulfate (Morphine Sulfate (Inj)) 4 mg IVP Q4HR PRN PRN Reason: Pain Last Admin: 05/10/19 08:00 Dose: 4 mg Documented by: Naloxone HCl (Narcan) 0.2 mg IV Q2M PRN PRN Reason: Opioid Reversal Ondansetron HCl (Zofran) 4 mg IVP Q6HR PRN PRN Reason: Nausea And Vomiting Last Admin: 05/10/19 20:19 Dose: 4 mg Documented by: Pantoprazole Sodium (Protonix) 40 mg PO DAILY [facility] Last Admin: 05/13/19 08:13 Dose: 40 mg Documented by: On examination: VITAL SIGNS: 97.5, 72, 18, 1:30 was sent 8, 98% room air GENERAL APPEARANCE: Laying in bed comfortable. HEENT: Normal external appearance of nose and ear. Oral cavity normal EYES: Pupils equal. Conjunctiva normal. NECK: JVD not raised. Mass not palpable. RESPIRATORY: Respiratory effort normal. Lungs clear to auscultation. CARDIOVASCULAR: First and second sounds normal. No edema. ABDOMEN: Soft. Liver and spleen not palpable. No tenderness. No mass palpable. PSYCHIATRY: Alert and oriented x3. Mood and affect normal. EXTREMITIES: Area that was skin marked improved redness. Patient has a boil on the dorsum of the right hand, also on the forehead, and the right armpit, minimal tenderness INVESTIGATIONS, reviewed in the clinical context: Accu-Cheks noted White count 6.5 potassium 4.1 Blood cultures negative Wound cultures negative to rule out, final pending Assessment: -Acute severe cellulitis and localized abscess in 3 different spots in the patient's had previous infection of the arm. Having failed outpatient treatment with Bactrim. Responding to vancomycin. -Obesity BMI 36.5 -Diabetes mellitus type 2, uncontrolled with hypoglycemia, improved -GERD -Essential hypertension -Hiatal hernia Plan: Awaiting final culture results. Negative till now. Discussed with patient. Discussed with ID doctor ashvin..
--- NOTE | 2019-05-13 21:35 | PN ---
PROGRESS NOTE DATE OF SERVICE: 05/13/2019 REASON FOR FOLLOWUP: Right hand dorsum and forearm abscess and cellulitis. INTERVAL HISTORY: The patient is currently afebrile, breathing comfortably. He denies having any chest pain, shortness of breath or cough. Overall pain and swelling to the right hand dorsum and the forearm have slightly decreased. No chest pain, shortness of breath or cough. No abdominal pain or diarrhea. PHYSICAL EXAMINATION: Blood pressure is 130/78 with a pulse of 72, temperature of 97.5. He is 98% on room air. General description is a middle-age male up in the chair in no distress. RESPIRATORY SYSTEM: Unlabored breathing. Clear to auscultation anteriorly. HEART: S1, S2. Regular rate and rhythm. ABDOMEN: Soft. No tenderness. The right hand dorsum and forearm swelling and redness have slightly decreased. No drainage. LABS: Wound cultures are currently pending. DIAGNOSTIC IMPRESSION AND PLAN: Patient with right hand dorsum abscess and forearm abscess and cellulitis. Waiting for the culture to finalize to determine his discharge antibiotics. Keep the patient on IV vancomycin. Monitor clinical course closely. MMODL / IJN: [id number] /
[2019-05-14] MEDS: VANCOMYCIN 1,500 MG in SODIUM CHLORIDE 0.9% 250 ML IVPB SCH ×2 (01:12→08:49)
[2019-05-14 04:55] VITALS: RESP 16
[2019-05-14 07:11] LABS: Glucose,Whole Blood 97 mg/dL (75-99)
[2019-05-14 08:30] LABS: African American GFR (CKD) >90 (>60 ml/min/1.73 sqM); Non-African American GFR(CKD) >90 (>60 ml/min/1.73 sqM)
[2019-05-14] MEDS: INSULIN ASPART (NovoLOG) 100 UNIT/ML VIAL SQ SCH ×4 (08:30→13:08)
[2019-05-14] MEDS: IBUPROFEN 800 MG TAB PO PRN (08:47)
[2019-05-14] MEDS: HEPARIN SODIUM,PORCINE 5,000 UNIT/ML 1 ML VIAL SQ SCH (08:48)
[2019-05-14] MEDS: GABAPENTIN 300 MG CAP PO SCH (08:49)
[2019-05-14] MEDS ORDERED: VANCOMYCIN TROUGH DUE 1 EACH MISC MISCELLANE ONE (09:00)
[2019-05-14] MEDS: ALPRAZolam 0.25 MG TAB PO PRN (12:14)
[2019-05-14 12:18] LABS: Glucose,Whole Blood 108 mg/dL (75-99)
[2019-05-14 12:55] VITALS: BP 130/80; PULSE 71; TEMP 98
--- NOTE | 2019-05-14 17:03 | P.DS ---
Providers Date of admission: 05/11/19 15:04 Expected date of discharge: 05/14/19 Attending physician: Tang Cabrera Consults: 05/11/19 20:16 Consult Physician Routine Consulting Provider: Hu Lock Consult Reason/Comments: MRSA hand infection Do you want consulting provider notified?: Yes Primary care physician: Julian Kim [facility] Course: Presenting complaint: Redness right hand History of presenting complaint: Patient admitted with areas of localized abscess in the right hand for an right armpit and surrounding cellulitis. Failed outpatient treatment with Bactrim. No fevers. Started with with IV vancomycin. Cultures came back growing MSSA. Redness swelling greatly improved. Abscess improved. Today-. Discussed with patient today. Discussed with Dr. lock from [place]. Rin to [place]. Manager Mobile: from [place] Consultation: Dr. Lock from [place] On examination: VITAL SIGNS: 98.0-71, 16, 130/80, 96% room air GENERAL APPEARANCE: Laying in bed comfortable. HEENT: Normal external appearance of nose and ear. Oral cavity normal EYES: Pupils equal. Conjunctiva normal. NECK: JVD not raised. Mass not palpable. RESPIRATORY: Respiratory effort normal. Lungs clear to auscultation. CARDIOVASCULAR: First and second sounds normal. No edema. ABDOMEN: Soft. Liver and spleen not palpable. No tenderness. No mass palpable. PSYCHIATRY: Alert and oriented x3. Mood and affect normal. EXTREMITIES: Abscess nearly dried up, redness resolved INVESTIGATIONS, reviewed in the clinical context: Accu-Cheks noted White count 6.5 potassium 4.1 Blood cultures negative Wound cultures MSSA Assessment: -Acute severe cellulitis and localized abscess in 3 different spots right upper extremity having failed outpatient treatment with Bactrim from [facility] -Obesity BMI 36.5 -Diabetes mellitus type 2, uncontrolled with hypoglycemia, improved -GERD -Essential hypertension -Hiatal hernia Disposition: Home Patient Condition at Discharge: Stable Plan - Discharge Summary New Discharge Prescriptions: New Cephalexin [Keflex] 500 mg PO Q6HR #30 cap Continue Omeprazole [PriLOSEC] 20 mg PO DAILY Mupirocin 2% Oint [Bactroban 2% Oint] 1 applic TOPICAL TID Ibuprofen [Motrin] 800 mg PO AC-TID PRN PRN Reason: Pain Gabapentin 600 mg PO DAILY Changed Insulin Lispro [humaLOG Kwikpen] 15 unit SQ AC-TID #0 Insulin Glargine,Hum.rec.anlog [Lantus Solostar] 60 unit SQ HS #0 Discontinued Sulfamethox-Tmp 800-160Mg [Bactrim DS 800-160 mg] 1 tab PO Q12H Discharge Medication List Omeprazole [PriLOSEC] 20 mg PO DAILY 08/20/16 [History] Gabapentin 600 mg PO DAILY 05/09/19 [History] Ibuprofen [Motrin] 800 mg PO AC-TID PRN 05/09/19 [History] Mupirocin 2% Oint [Bactroban 2% Oint] 1 applic TOPICAL TID 05/09/19 [History] Cephalexin [Keflex] 500 mg PO Q6HR #30 cap 05/14/19 [Rx] Insulin Glargine,Hum.rec.anlog [Lantus Solostar] 60 unit SQ HS #0 05/14/19 [Rx] Insulin Lispro [humaLOG Kwikpen] 15 unit SQ AC-TID #0 05/14/19 [Rx] Follow up Appointment(s)/Referral(s): Julian Carranza MD [Primary Care Provider] - 1-2 days (pt to call thursday to make appt.) Hu Lock MD [STAFF PHYSICIAN] - 1 Week (pt to call thursday to make appt.) Activity/Diet/Wound Care/Special Instructions: pt will have to go to [facility] to leaf size picker his glucometer supplies. Discharge/Stand Alone Forms: Work/School Release / Restrict
[2019-05-14] MEDS ORDERED: VANCOMYCIN 1,500 MG in SODIUM CHLORIDE 0.9% 250 ML IVPB SCH (18:00)
--- NOTE | 2019-05-14 19:18 | PN ---
PROGRESS NOTE DATE OF SERVICE: 05/14/2019. REASON FOR FOLLOWUP: Right hand dorsum and forearm abscess cellulitis MSSA. INTERVAL HISTORY: The patient is currently afebrile, has been breathing comfortably. He denies having any chest pain or shortness of breath or cough. Right hand dorsum swelling and redness has resolved. Right forearm induration persists though the redness is decreased. LABS: micro and MSSA. DIAGNOSTIC IMPRESSION AND PLAN: Patient with right hand dorsum and right forearm abscess and cellulitis. Culture positive for MSSA. Antibiotic will be adjusted to Keflex 500 mg p.o. q.6 hours for 10 days. Prescription sent to the pharmacy. Questions and concerns were answered. MMODL / IJN: [id number] /
== END 2019-05-14 17:48 | disposition home or self-care (01) | DRG 603 ==
LOC: EC 20:07 → 5NMEDONC 22:22 → OBSVTOIN 05-11 15:04
PROVIDERS: ADMIT Hospitalist; ATTEND Hospitalist
DX: L02.511 Cutaneous abscess of right hand (principal); L02.413 Cutaneous abscess of right upper limb; K44.9 Diaphragmatic hernia without obstruction or gangrene; K21.9 Gastro-esophageal reflux disease without esophagitis; I10 Essential (primary) hypertension; E66.9 Obesity, unspecified; B95.61 Methicillin susceptible Staphylococcus aureus infection as the cause of diseases classified elsewhere; E11.649 Type 2 diabetes mellitus with hypoglycemia without coma; E11.65 Type 2 diabetes mellitus with hyperglycemia; Z68.36 Body mass index [BMI] 36.0-36.9, adult; Z79.4 Long term (current) use of insulin; Z86.19 Personal history of other infectious and parasitic diseases; Z87.891 Personal history of nicotine dependence; Z87.442 Personal history of urinary calculi; Z79.899 Other long term (current) drug therapy; Z98.890 Other specified postprocedural states; Z88.8 Allergy status to other drugs, medicaments and biological substances
CPT/HCPCS: 36415; 80048; 80053; 80202; 82565; 83036; 83605; 85025; 85027; 85610; 85730; 87040; 87070; 87077; 87186; 87205; 93005; 96365; 96368; 99284

== ENCOUNTER 2019-08-08 16:18 | Observation (INO) | payer BC ==
[2019-08-08] MEDS ORDERED: SODIUM CHLORIDE 0.9% 1,000 ML IV STA ×2 (16:37→18:11)
[2019-08-08] MEDS ORDERED: IPRATROPIUM-ALBUTEROL 3 ML NEB INHALATION STA (16:37)
[2019-08-08] MEDS ORDERED: methylPREDNISolone SOD SUCCI 125 MG/2 ML VIAL IV STA (16:37)
--- NOTE | 2019-08-08 16:41 | ED ---
SOB HPI - General Chief Complaint: Shortness of Breath Stated Complaint: SOB Time Seen by Provider: 08/08/19 16:30 Source: patient, RN notes reviewed Mode of arrival: wheelchair Limitations: no limitations - History of Present Illness Initial Comments: This is a 53-year-old male who is a smoker who states he had the onset last night and early this morning of cough that is intractable with some shortness of breath some exertional dyspnea no stiffness shoulder pain which just developed the goes along with the coughing. He has had some chills no fevers or sweats cough and very minimal phlegm no other modifying factors no known exposures to any infectious diseases. MD Complaint: shortness of breath, cough, chest pain - Related Data Home Medications Medication Instructions Recorded Confirmed Omeprazole [PriLOSEC] 20 mg PO DAILY 08/20/16 05/09/19 Gabapentin 600 mg PO DAILY 05/09/19 05/09/19 Ibuprofen [Motrin] 800 mg PO AC-TID PRN 05/09/19 05/09/19 Mupirocin 2% Oint [Bactroban 2% 1 applic TOPICAL TID 05/09/19 05/09/19 Oint] Previous Rx's Medication Instructions Recorded Cephalexin [Keflex] 500 mg PO Q6HR #30 cap 05/14/19 Insulin Glargine,Hum.rec.anlog 60 unit SQ HS #0 05/14/19 [Lantus Solostar] Insulin Lispro [humaLOG Kwikpen] 15 unit SQ AC-TID #0 05/14/19 Allergies Allergy/AdvReac Type Severity Reaction Status Date / Time metformin AdvReac Nausea & Verified 08/08/19 16:24 Vomiting & Diarrhea Review of Systems ROS Statement: Those systems with pertinent positive or pertinent negative responses have been documented in the HPI. ROS Other: All systems not noted in ROS Statement are negative. Past Medical History Past Medical History: Diabetes Mellitus, GERD/Reflux, Hypertension Additional Past Medical History / Comment(s): occ. pain with swallowing, hiatal hernia, dry skin, hx kidney stones History of Any Multi-Drug Resistant Organisms: None Reported Past Surgical History: Ear Surgery, Orthopedic Surgery Additional Past Surgical History / Comment(s): cystoscopy/stent in urethra, olga carpal tunnel, trigger finger left thumb, rt thumb surgery Past Anesthesia/Blood Transfusion Reactions: Motion Sickness Additional Past Anesthesia/Blood Transfusion Reaction / Comment(s): dizziness Past Psychological History: No Psychological Hx Reported Smoking Status: Former smoker Past Alcohol Use History: None Reported Past Drug Use History: None Reported - Past Family History Mother Family Medical History: No Reported History General Exam - General Exam Comments Initial Comments: This is a well-developed well-nourished awake alert oriented 3 male Limitations: no limitations General appearance: alert, anxious Head exam: Present: atraumatic, normocephalic, normal inspection Eye exam: Present: normal appearance, PERRL, EOMI. Absent: scleral icterus, conjunctival injection, periorbital swelling ENT exam: Present: normal exam, mucous membranes moist Neck exam: Present: normal inspection. Absent: tenderness, meningismus, lymphadenopathy Respiratory exam: Present: chest wall tenderness, accessory muscle use, d ecreased breath sounds. Absent: respiratory distress, wheezes, rales, rhonchi, stridor Cardiovascular Exam: Present: regular rate, normal rhythm, normal heart sounds. Absent: systolic murmur, diastolic murmur, rubs, gallop, clicks GI/Abdominal exam: Present: soft, normal bowel sounds. Absent: distended, tenderness, guarding, rebound, rigid Extremities exam: Present: normal inspection, full ROM, normal capillary refill. Absent: tenderness, pedal edema, joint swelling, calf tenderness Back exam: Present: normal inspection Neurological exam: Present: alert, oriented X3, CN II-XII intact Psychiatric exam: Present: normal affect, normal mood Skin exam: Present: warm, dry, intact, normal color. Absent: rash Course Vital Signs 08/08/19 08/08/19 08/08/19 16:20 16:50 16:57 Temperature 97.7 F Pulse Rate 72 82 86 Respiratory 22 Rate Blood Pressure 129/71 O2 Sat by Pulse 99 Oximetry 08/08/19 19:18 Temperature Pulse Rate 79 Respiratory 16 Rate Blood Pressure 130/81 O2 Sat by Pulse 100 Oximetry - Reevaluation(s) Reevaluation #1: 08/08/19 18:11 Just states she's feeling slightly better however he does say he's had elevated blood sugar past several days. The lab work today shows a 500 glucose level. Medical Decision Making - Medical Decision Making Discussion with patient he is feeling somewhat better with respect to breathing he did have burning chest pain that occurred earlier today across his chest. Unsure if related to the breathing or not did discuss patient finds him and with Dr. Cabrera patient will be admitted - Lab Data Result diagrams: 08/08/19 16:50 08/08/19 16:50 Lab Results 08/08/19 08/08/19 08/08/19 Range/Units 16:50 16:50 16:50 WBC 9.9 (3.8-10.6) k/uL RBC 5.23 (4.30-5.90) m/uL Hgb 15.8 (13.0-17.5) gm/dL Hct 47.1 (39.0-53.0) % MCV 90.0 (80.0-100.0) fL MCH 30.2 (25.0-35.0) pg MCHC 33.6 (31.0-37.0) g/dL RDW 12.9 (11.5-15.5) % Plt Count 310 (150-450) k/uL Neutrophils % 59 % Lymphocytes % 31 % Monocytes % 5 % Eosinophils % 4 % Basophils % 1 % Neutrophils # 5.8 (1.3-7.7) k/uL Lymphocytes # 3.0 (1.0-4.8) k/uL Monocytes # 0.5 (0-1.0) k/uL Eosinophils # 0.3 (0-0.7) k/uL Basophils # 0.1 (0-0.2) k/uL PT 9.4 (9.0-12.0) sec INR 0.9 (<1.2) APTT 21.3 L (22.0-30.0) sec D-Dimer 0.27 (<0.60) mg/L FEU Sodium 130 L (137-145) mmol/L Potassium 4.7 (3.5-5.1) mmol/L Chloride 96 L (98-107) mmol/L Carbon Dioxide 24 (22-30) mmol/L Anion Gap 10 mmol/L BUN 20 (9-20) mg/dL Creatinine 0.76 (0.66-1.25) mg/dL Est GFR (CKD-EPI)AfAm >90 (>60 ml/min/1.73 sqM) Est GFR (CKD-EPI)NonAf >90 (>60 ml/min/1.73 sqM) Glucose 500 H (74-99) mg/dL POC Glucose (mg/dL) (75-99) mg/dL POC Glu Mentally Retarded Teacher ID Plasma Lactic Acid Mike (0.7-2.0) mmol/L Calcium 9.5 (8.4-10.2) mg/dL Magnesium 2.1 (1.6-2.3) mg/dL Total Bilirubin 0.4 (0.2-1.3) mg/dL AST 23 (17-59) U/L ALT 28 (4-49) U/L Alkaline Phosphatase 79 (38-126) U/L Creatine Kinase 159 (55-170) U/L Troponin I (0.000-0.034) ng/mL NT-Pro-B Natriuret Pep pg/mL Total Protein 6.2 L (6.3-8.2) g/dL Albumin 3.9 (3.5-5.0) g/dL Acetone, Qual (Negative) 08/08/19 08/08/19 08/08/19 Range/Units 16:50 16:50 16:50 WBC (3.8-10.6) k/uL RBC (4.30-5.90) m/uL Hgb (13.0-17.5) gm/dL Hct (39.0-53.0) % MCV (80.0-100.0) fL MCH (25.0-35.0) pg MCHC (31.0-37.0) g/dL RDW (11.5-15.5) % Plt Count (150-450) k/uL Neutrophils % % Lymphocytes % % Monocytes % % Eosinophils % % Basophils % % Neutrophils # (1.3-7.7) k/uL Lymphocytes # (1.0-4.8) k/uL Monocytes # (0-1.0) k/uL Eosinophils # (0-0.7) k/uL Basophils # (0-0.2) k/uL PT (9.0-12.0) sec INR (<1.2) APTT (22.0-30.0) sec D-Dimer (<0.60) mg/L FEU Sodium (137-145) mmol/L Potassium (3.5-5.1) mmol/L Chloride (98-107) mmol/L Carbon Dioxide (22-30) mmol/L Anion Gap mmol/L BUN (9-20) mg/dL Creatinine (0.66-1.25) mg/dL Est GFR (CKD-EPI)AfAm (>60 ml/min/1.73 sqM) Est GFR (CKD-EPI)NonAf (>60 ml/min/1.73 sqM) Glucose (74-99) mg/dL POC Glucose (mg/dL) (75-99) mg/dL POC Glu Mentally Retarded Teacher ID Plasma Lactic Acid Mike 1.9 (0.7-2.0) mmol/L Calcium (8.4-10.2) mg/dL Magnesium (1.6-2.3) mg/dL Total Bilirubin (0.2-1.3) mg/dL AST (17-59) U/L ALT (4-49) U/L Alkaline Phosphatase (38-126) U/L Creatine Kinase (55-170) U/L Troponin I <0.012 (0.000-0.034) ng/mL NT-Pro-B Natriuret Pep 26 pg/mL Total Protein (6.3-8.2) g/dL Albumin (3.5-5.0) g/dL Acetone, Qual (Negative) 08/08/19 08/08/19 Range/Units 16:50 19:40 WBC (3.8-10.6) k/uL RBC (4.30-5.90) m/uL Hgb (13.0-17.5) gm/dL Hct (39.0-53.0) % MCV (80.0-100.0) fL MCH (25.0-35.0) pg MCHC (31.0-37.0) g/dL RDW (11.5-15.5) % Plt Count (150-450) k/uL Neutrophils % % Lymphocytes % % Monocytes % % Eosinophils % % Basophils % % Neutrophils # (1.3-7.7) k/uL Lymphocytes # (1.0-4.8) k/uL Monocytes # (0-1.0) k/uL Eosinophils # (0-0.7) k/uL Basophils # (0-0.2) k/uL PT (9.0-12.0) sec INR (<1.2) APTT (22.0-30.0) sec D-Dimer (<0.60) mg/L FEU Sodium (137-145) mmol/L Potassium (3.5-5.1) mmol/L Chloride (98-107) mmol/L Carbon Dioxide (22-30) mmol/L Anion Gap mmol/L BUN (9-20) mg/dL Creatinine (0.66-1.25) mg/dL Est GFR (CKD-EPI)AfAm (>60 ml/min/1.73 sqM) Est GFR (CKD-EPI)NonAf (>60 ml/min/1.73 sqM) Glucose (74-99) mg/dL POC Glucose (mg/dL) 270 H (75-99) mg/dL POC Glu Mentally Retarded Teacher ID Kellee Gregorio Plasma Lactic Acid Mike (0.7-2.0) mmol/L Calcium (8.4-10.2) mg/dL Magnesium (1.6-2.3) mg/dL Total Bilirubin (0.2-1.3) mg/dL AST (17-59) U/L ALT (4-49) U/L Alkaline Phosphatase (38-126) U/L Creatine Kinase (55-170) U/L Troponin I (0.000-0.034) ng/mL NT-Pro-B Natriuret Pep pg/mL Total Protein (6.3-8.2) g/dL Albumin (3.5-5.0) g/dL Acetone, Qual Negative (Negative) - EKG Data -: EKG Interpreted by Tx EKG shows normal: sinus rhythm - Radiology Data Radiology results: report reviewed (I did review the imaging and report no definite infiltrates seen some mild interstitial prominence however.), image reviewed Disposition Clinical Impression: Acute exacerbation of chronic obstructive pulmonary disease, Bronchitis, Hyperglycemia, Chest pain Disposition: ADMITTED IP TO THIS HOSP Condition: Fair Referrals: Julian Carranza MD [Primary Care Provider] - 1-2 days
[2019-08-08 17:05] LABS: Basophils # (A) 0.1 k/uL (0-0.2); Basophils % (A) 1 %; Eosinophils # (A) 0.3 k/uL (0-0.7); Eosinophils % (A) 4 %; HCT 47.1 % (39.0-53.0); HGB 15.8 gm/dL (13.0-17.5); Lymphocytes % (A) 31 %; MCH 30.2 pg (25.0-35.0); MCHC 33.6 g/dL (31.0-37.0); Mean Platelet Volume 7.5; Monocytes # (A) 0.5 k/uL (0-1.0); Monocytes % (A) 5 %; Neutrophils # (A) 5.8 k/uL (1.3-7.7); Neutrophils % (A) 59 %; Platelet Count 310 k/uL (150-450); RBC 5.23 m/uL (4.30-5.90); RDW 12.9 % (11.5-15.5); WBC 9.9 k/uL (3.8-10.6)
[2019-08-08 17:13] LABS: ALT 28 U/L (4-49); AST 23 U/L (17-59); African American GFR (CKD) >90 (>60 ml/min/1.73 sqM); Albumin 3.9 g/dL (3.5-5.0); Alkaline Phosphatase 79 U/L (38-126); Anion Gap 10 mmol/L; Blood Urea Nitrogen 20 mg/dL (9-20); Calcium 9.5 mg/dL (8.4-10.2); Carbon Dioxide 24 mmol/L (22-30); Chloride 96 mmol/L (98-107); Creatine Kinase 159 U/L (55-170); Glucose 500 mg/dL (74-99); Magnesium 2.1 mg/dL (1.6-2.3); Non-African American GFR(CKD) >90 (>60 ml/min/1.73 sqM); Potassium 4.7 mmol/L (3.5-5.1); Sodium 130 mmol/L (137-145); Total Bilirubin 0.4 mg/dL (0.2-1.3); Total Protein 6.2 g/dL (6.3-8.2)
--- NOTE | 2019-08-08 17:21 | XR ---
EXAMINATION TYPE: XR chest 2V DATE OF EXAM: 08/08/2019 COMPARISON: None HISTORY: 53 year-old male shortness of breath, difficulty breathing TECHNIQUE: AP and lateral views FINDINGS: Heart normal size. Aorta and pulmonary vasculature within normal limits. Mild interstitial prominence without consolidation or pleural effusion. IMPRESSION: Mild interstitial prominence could reflect bronchitis or asthma. No focal infiltrate.
[2019-08-08 17:26] LABS: D-Dimer 0.27 mg/L FEU (<0.60); INR 0.9 (<1.2); Prothrombin Time 9.4 sec (9.0-12.0)
[2019-08-08 17:33] LABS: Partial Thromboplastin Time 21.3 sec (22.0-30.0)
[2019-08-08] MEDS ORDERED: INSULIN REGULAR 100 UNIT/ML VIAL IV ONE (18:11)
[2019-08-08 19:46] LABS: Glucose,Whole Blood 270 mg/dL (75-99)
[2019-08-08] MEDS ORDERED: cefTRIAXone IN SWFI 1,000 MG/10 ML SYRINGE IVP STA (20:24)
[2019-08-08] MEDS ORDERED: IBUPROFEN 800 MG TAB PO PRN (20:25)
[2019-08-08] MEDS ORDERED: IPRATROPIUM-ALBUTEROL 3 ML NEB INHALATION PRN (20:37)
[2019-08-08] MEDS ORDERED: INSULIN DETEMIR (LEVEMIR) 100 UNIT/ML SYR SQ SCH (21:00)
[2019-08-08 21:10] LABS: Glucose,Whole Blood 322 mg/dL (75-99)
[2019-08-08 22:13] LABS: Glucose,Whole Blood 354 mg/dL (75-99)
[2019-08-08] MEDS: methylPREDNISolone SOD SUCCI 125 MG/2 ML VIAL IV SCH (23:13)
[2019-08-09] MEDS ORDERED: IPRATROPIUM-ALBUTEROL 3 ML NEB INHALATION SCH
[2019-08-09] MEDS: methylPREDNISolone SOD SUCCI 125 MG/2 ML VIAL IV SCH ×2 (05:14→13:01)
[2019-08-09 06:26] LABS: Glucose,Whole Blood 322 mg/dL (75-99)
[2019-08-09] MEDS: IPRATROPIUM-ALBUTEROL 3 ML NEB INHALATION SCH ×4 (07:31→15:47)
[2019-08-09 08:08] VITALS: RESP 18
[2019-08-09] MEDS ORDERED: GABAPENTIN 300 MG CAP PO SCH (09:00)
[2019-08-09] MEDS ORDERED: PANTOPRAZOLE 40 MG TABLET PO SCH (09:00)
[2019-08-09] MEDS: INSULIN ASPART (NovoLOG) 100 UNIT/ML VIAL SQ SCH ×5 (09:45→17:03)
[2019-08-09] MEDS ORDERED: INSULIN DETEMIR (LEVEMIR) 100 UNIT/ML SYR SQ SCH ×2 (10:30→18:00)
[2019-08-09] MEDS ORDERED: LISINOPRIL 20 MG TAB PO SCH (10:30)
[2019-08-09 11:04] VITALS: TEMP 98
[2019-08-09 11:44] LABS: Glucose,Whole Blood 342 mg/dL (75-99)
[2019-08-09] MEDS ORDERED: ENOXAPARIN 40 MG/0.4 ML SYRINGE SQ SCH (12:45)
[2019-08-09] MEDS ORDERED: BUDESONIDE 1 MG/2 ML NEBU INHALATION SCH (12:45)
[2019-08-09] MEDS ORDERED: predniSONE 20 MG TAB PO STA (12:45)
[2019-08-09 15:06] VITALS: BMI 39.5
[2019-08-09 16:55] VITALS: BP 101/56; PULSE 84
[2019-08-09 16:57] LABS: Glucose,Whole Blood 416 mg/dL (75-99)
--- NOTE | 2019-08-09 23:30 | P.HPIM ---
History of Present Illness H&P Date: 08/09/19 Chief Complaint: Short of breath, cough History of presenting complaint: This is a pleasant 53-year-old patient of Dr. walter. Chronic stable medical conditions include diabetes mellitus type 2, GERD, hypertension, hiatal hernia. Patient long-standing smoker. Patient presents with 2 days of worsening short of breath bouts of coughing. Some chills. No fever. Decreased appetite. Patient had reflux symptoms which aren't been getting worse. The deep breath or laying down he gets a burning sensation in the chest. Continue with the deep breathing not otherwise. Was coughing so with that he nearly passed out. Appetite is a bit better this morning. Review of systems: GEN.: Tired EYES: None HEENT: None NECK: None RESPIRATORY: As above CARDIOVASCULAR: None GASTROINTESTINAL: Was taking reflux symptoms GENITOURINARY: None MUSCULOSKELETAL: None LYMPHATICS: None HEMATOLOGICAL: None PSYCHIATRY: Slightly anxious] NEUROLOGICAL: None Past medical history to include: Diabetes, GERD, hypertension, hiatal hernia, kidney stones Social history: Lives with his parents, employed, is a smoker and denies alcohol. Family history: Reviewed, noncontributory to presentation Physical examination: VITAL SIGNS: 97.7, 72, 22, 129/71, 99% on room air GENERAL: BMI 39.5, sitting up, not in distress comfortable coughing intermittently. EYES: Pupils equal. Conjunctiva normal. HEENT: External appearance of nose and ears normal, oral cavity grossly normal. NECK: JVD not raised; masses not palpable. HEART: First and second heart sounds are normal; no edema. LUNGS: Respiratory rate increased, decreased breath sounds mild wheezing. ABDOMEN: Soft, nontender, liver spleen not palpable, no masses palpable. PSYCH: [Alert and oriented x3; mood and affect anxious l. NEUROLOGICAL: Cranial nerves grossly intact; no facial asymmetry, power and sensation grossly intact. LYMPHATICS: No lymph nodes palpable in the axilla and neck INVESTIGATIONS, reviewed in the clinical context: White count 9.9 hemoglobin 15.8 potassium 4.7 creatinine 0.76 sodium 1:30 Troponin I 2 negative proBNP 26 serum acetone negative COVID 19-PCR-not detected EKG tracing personally reviewed by me-to sinus rhythm Chest x-ray film personally reviewed by me-possible bronchial prominence Assessment: -Acute COPD exacerbation in a current smoker with acute bronchitis -Cough syncope from bouts of coughing -Exacerbation of GERD which has been coming on for some time -Diabetes mellitus type 2, uncontrolled with hyperglycemia -Essential hypertension -Chronic nicotine dependence patient cigarette smoker Plan: Patient started on bronchodilators. Patient advised to do salt water gargle. Inhaled and IV steroids was given. Home medications resumed. Because of PPI was increased. Patient cannot use NSAIDs. Total follow with GI as an outpatient. Smoke cessation counseling: This was done with the patient. Nicotine patch is being given. More than 3 minutes was spent for this Past Medical History Past Medical History: Diabetes Mellitus, GERD/Reflux, Hypertension Additional Past Medical History / Comment(s): occ. pain with swallowing, hiatal hernia, dry skin, hx kidney stones History of Any Multi-Drug Resistant Organisms: None Reported Past Surgical History: Ear Surgery, Orthopedic Surgery Additional Past Surgical History / Comment(s): cystoscopy/stent in urethra, olga carpal tunnel, trigger finger left thumb, rt thumb surgery Past Anesthesia/Blood Transfusion Reactions: No Reported Reaction Additional Past Anesthesia/Blood Transfusion Reaction / Comment(s): dizziness Past Psychological History: No Psychological Hx Reported Smoking Status: Current every day smoker Past Alcohol Use History: None Reported Additional Past Alcohol Use History / Comment(s): smoked for 30 yrs Past Drug Use History: None Reported - Past Family History Mother Family Medical History: No Reported History Medications and Allergies Home Medications Medication Instructions Recorded Confirmed Type Gabapentin 600 mg PO DAILY 05/09/19 08/08/19 History Albuterol Inhaler [Ventolin Hfa 1 puff INHALATION Q4H PRN #1 puff 08/09/19 Rx Inhaler] Ibuprofen [Motrin] 800 mg PO AC-TID PRN tab 08/09/19 Rx Insulin Glargine,Hum.rec.anlog 54 unit SQ DAILY #0 08/09/19 08/08/19 Rx [Lantus Solostar] Insulin Lispro [humaLOG Kwikpen] 15 unit SQ AC-TID #0 08/09/19 08/08/19 Rx Lisinopril [Zestril] 20 mg PO DAILY 08/09/19 08/09/19 History Omeprazole [PriLOSEC] 20 mg PO BID #60 cap 08/09/19 Rx Tiotropium [place] [Spiriva] 1 cap INHALATION DAILY #1 device 06/02/20 Rx predniSONE 0 mg PO DIRECTED #6 tab 08/09/19 Rx Allergies Allergy/AdvReac Type Severity Reaction Status Date / Time metformin AdvReac Nausea & Verified 08/08/19 22:07 Vomiting & Diarrhea Physical Exam Vitals: Vital Signs Temp Pulse Pulse Resp BP BP Pulse Ox 08/09/19 08:00 97.6 F 88 18 138/80 96 08/09/19 07:42 81 08/09/19 07:33 79 98 08/09/19 03:18 83 16 08/09/19 03:15 98.2 F 83 16 133/77 96 08/08/19 23:22 81 16 08/08/19 23:17 98.1 F 81 16 142/82 97 08/08/19 22:00 78 16 08/08/19 21:18 98.0 F 78 16 96 08/08/19 21:00 98.3 F 76 16 123/71 99 08/08/19 20:38 98.1 F 73 16 130/62 99 08/08/19 19:18 79 16 130/81 100 08/08/19 16:57 86 08/08/19 16:50 82 08/08/19 16:20 97.7 F 72 22 129/71 99 Intake and Output 08/08/19 08/09/19 08/09/19 22:59 06:59 14:59 Intake Total 1000 Balance 1000 Intake: Amount of Fluid Infused ( 1000 ml) Other: Weight 117.934 kg Results CBC & Chem 7: 08/08/19 16:50 08/08/19 16:50 Labs: Abnormal Lab Results - Last 24 Hours (Table) 08/08/19 08/08/19 08/08/19 Range/Units 16:50 16:50 19:40 APTT 21.3 L (22.0-30.0) sec Sodium 130 L (137-145) mmol/L Chloride 96 L (98-107) mmol/L Glucose 500 H (74-99) mg/dL POC Glucose (mg/dL) 270 H (75-99) mg/dL Total Protein 6.2 L (6.3-8.2) g/dL 08/08/19 08/08/19 08/09/19 Range/Units 21:01 22:12 06:25 APTT (22.0-30.0) sec Sodium (137-145) mmol/L Chloride (98-107) mmol/L Glucose (74-99) mg/dL POC Glucose (mg/dL) 322 H 354 H 322 H (75-99) mg/dL Total Protein (6.3-8.2) g/dL Thrombosis Risk Factor Assmnt - Choose All That Apply Any of the Below Risk Factors Present?: Yes Each Factor Represents 1 point: Abnormal pulmonary function (COPD), Acute GA, Age 41-60 years, Obesity (BMI >25) Other Risk Factors: No Other congenital or acquired thrombophilia - If yes, enter type in comment: No Thrombosis Risk Factor Assessment Total Risk Factor Score: 4 Thrombosis Risk Factor Assessment Level: Moderate Risk
--- NOTE | 2019-08-09 23:33 | P.DS ---
Providers Date of admission: 08/08/19 20:26 Expected date of discharge: 08/09/19 Attending physician: Tang Cabrera Primary care physician: Julian Carranza [facility] Course: Chief Complaint: Short of breath, cough History of presenting complaint: This is a pleasant 53-year-old patient of Dr. carranza. Chronic stable medical conditions include diabetes mellitus type 2, GERD, hypertension, hiatal hernia. Patient long-standing smoker. Patient presents with 2 days of worsening short of breath bouts of coughing. Some chills. No fever. Decreased appetite. Patient had reflux symptoms which aren't been getting worse. The deep breath or laying down he gets a burning sensation in the chest. Continue with the deep breathing not otherwise. Was coughing so with that he nearly passed out. Appetite is a bit better this morning. Admitted with COPD exacerbation with acute bronchitis and could exacerbation. Given bronchodilators, steroids,. Given supplemental oxygen. Counseled about smoking. Patient did much better by evening. Patient may return to work in 3 days. With no restrictions. Care was discussed in detail. Follow-up with GI as an outpatient. Physical examination: VITAL SIGNS: 98.1, 73, 16, 130 was 2, 99% on room air GENERAL: BMI 39.5, sitting up, not in distress comfortable coughing intermittently. EYES: Pupils equal. Conjunctiva normal. HEENT: External appearance of nose and ears normal, oral cavity grossly normal. NECK: JVD not raised; masses not palpable. HEART: First and second heart sounds are normal; no edema. LUNGS: Respiratory rate increased, decreased breath sounds mild wheezing. ABDOMEN: Soft, nontender, liver spleen not palpable, no masses palpable. PSYCH: [Alert and oriented x3; mood and affect anxious l. INVESTIGATIONS, reviewed in the clinical context: White count 9.9 hemoglobin 15.8 potassium 4.7 creatinine 0.76 sodium 1:30 Troponin I 2 negative proBNP 26 serum acetone negative COVID 19-PCR-not detected EKG tracing personally reviewed by me-to sinus rhythm Chest x-ray film personally reviewed by me-possible bronchial prominence Assessment: -Acute COPD exacerbation in a current smoker with acute bronchitis -Cough syncope from bouts of coughing -Exacerbation of GERD which has been coming on for some time -Diabetes mellitus type 2, uncontrolled with hyperglycemia -Essential hypertension -Chronic nicotine dependence patient cigarette smoker Disposition: Home Patient Condition at Discharge: Stable Plan - Discharge Summary Discharge Rx Participant: No New Discharge Prescriptions: New Ibuprofen [Motrin] 800 mg PO AC-TID PRN tab PRN Reason: Pain predniSONE 0 mg PO DIRECTED #6 tab Tiotropium [place] [Spiriva] 1 cap INHALATION DAILY #1 device Albuterol Inhaler [Ventolin Hfa Inhaler] 1 puff INHALATION Q4H PRN #1 puff PRN Reason: Wheezing Continue Gabapentin 600 mg PO DAILY Lisinopril [Zestril] 20 mg PO DAILY Changed Omeprazole [PriLOSEC] 20 mg PO BID #60 cap Insulin Lispro [humaLOG Kwikpen] 15 unit SQ AC-TID #0 Insulin Glargine,Hum.rec.anlog [Lantus Solostar] 54 unit SQ DAILY #0 Discontinued Insulin Glargine,Hum.rec.anlog [Lantus Solostar] 40 unit SQ DAILY Discharge Medication List Gabapentin 600 mg PO DAILY 05/09/19 [History] Albuterol Inhaler [Ventolin Hfa Inhaler] 1 puff INHALATION Q4H PRN #1 puff 08/09/19 [Rx] Ibuprofen [Motrin] 800 mg PO AC-TID PRN tab 08/09/19 [Rx] Insulin Glargine,Hum.rec.anlog [Lantus Solostar] 54 unit SQ DAILY #0 08/09/19 [Rx] Insulin Lispro [humaLOG Kwikpen] 15 unit SQ AC-TID #0 08/09/19 [Rx] Lisinopril [Zestril] 20 mg PO DAILY 08/09/19 [History] Omeprazole [PriLOSEC] 20 mg PO BID #60 cap 08/09/19 [Rx] Tiotropium [place] [Spiriva] 1 cap INHALATION DAILY #1 device 08/09/19 [Rx] predniSONE 0 mg PO DIRECTED #6 tab 08/09/19 [Rx] Follow up Appointment(s)/Referral(s): Julian Carranza MD [Primary Care Provider] - 1 Week Patient Instructions/Handouts: COPD (Chronic Obstructive Pulmonary Disease) (DC) Activity/Diet/Wound Care/Special Instructions: return to work this thursday with no restrictions Discharge/Stand Alone Forms: Work/School Release / Restrict Discharge Disposition: HOME SELF-CARE
== END 2019-08-09 18:46 | disposition home or self-care (01) ==
LOC: EC 16:18 → 1SOBS 20:26
PROVIDERS: ADMIT Hospitalist; ATTEND Hospitalist
DX: J44.1 Chronic obstructive pulmonary disease with (acute) exacerbation (principal); J44.0 Chronic obstructive pulmonary disease with (acute) lower respiratory infection; J20.9 Acute bronchitis, unspecified; F17.210 Nicotine dependence, cigarettes, uncomplicated; E11.65 Type 2 diabetes mellitus with hyperglycemia; K21.9 Gastro-esophageal reflux disease without esophagitis; I10 Essential (primary) hypertension; R55 Syncope and collapse; K44.9 Diaphragmatic hernia without obstruction or gangrene; E66.9 Obesity, unspecified; Z68.39 Body mass index [BMI] 39.0-39.9, adult; Z79.4 Long term (current) use of insulin; Z79.899 Other long term (current) drug therapy; Z88.8 Allergy status to other drugs, medicaments and biological substances; Z87.442 Personal history of urinary calculi; Z20.818 Contact with and (suspected) exposure to other bacterial communicable diseases
CPT/HCPCS: 96372; 96376 ×2; 96361; 96374; 96375; 99285; 36415; 94640 ×3; 94760; 93005 ×2; 85379; 83880; 80053; 82550; 82009; 83605; 83735; 84484; 85025; 85610; 85730; 71046; G0378 ×2; U0003; J2930 ×2; J1650; J0696; J7512

== ENCOUNTER 2019-10-02 13:19 | Emergency (ER) | payer BC ==
--- NOTE | 2019-10-02 14:04 | ED ---
General Adult HPI - General Chief complaint: ENT Stated complaint: infection in nose/mouth Time Seen by Provider: 10/02/19 13:52 Source: patient, RN notes reviewed, old records reviewed Mode of arrival: ambulatory Limitations: no limitations - History of Present Illness Initial comments: 54-year-old male with 4 days of swelling at the base of the nose and upper lip. He states he previously had infection in his hand and was prescribed Keflex. He started this antibiotic in attempt to improve his symptoms. He. Neosporin at that base of both nostrils. He denies fever. No nausea vomiting. He has some tenderness associated with the swelling. He has had some minimal drainage as well. - Related Data Home Medications Medication Instructions Recorded Confirmed Gabapentin 600 mg PO DAILY 05/09/19 08/08/19 lisinopriL [Zestril] 20 mg PO DAILY 08/09/19 08/09/19 Previous Rx's Medication Instructions Recorded Albuterol Inhaler [Ventolin Hfa 1 puff INHALATION Q4H PRN #1 puff 08/09/19 Inhaler] Ibuprofen [Motrin] 800 mg PO AC-TID PRN tab 08/09/19 Insulin Glargine,Hum.rec.anlog 54 unit SQ DAILY #0 08/09/19 [Lantus Solostar] Insulin Lispro [humaLOG Kwikpen] 15 unit SQ AC-TID #0 08/09/19 Omeprazole [PriLOSEC] 20 mg PO BID #60 cap 08/09/19 Tiotropium [place] [Spiriva] 1 cap INHALATION DAILY #1 device 08/09/19 predniSONE 0 mg PO DIRECTED #6 tab 08/09/19 Clindamycin [Cleocin] 450 mg PO Q8H #30 cap 10/02/19 Allergies Allergy/AdvReac Type Severity Reaction Status Date / Time metformin AdvReac Nausea & Verified 10/02/19 13:28 Vomiting & Diarrhea Review of Systems ROS Statement: Those systems with pertinent positive or pertinent negative responses have been documented in the HPI. ROS Other: All systems not noted in ROS Statement are negative. Past Medical History Past Medical History: Diabetes Mellitus, GERD/Reflux, Hypertension Additional Past Medical History / Comment(s): occ. pain with swallowing, hiatal hernia, dry skin, hx kidney stones History of Any Multi-Drug Resistant Organisms: None Reported Past Surgical History: Ear Surgery, Orthopedic Surgery Additional Past Surgical History / Comment(s): cystoscopy/stent in urethra, olga carpal tunnel, trigger finger left thumb, rt thumb surgery Past Anesthesia/Blood Transfusion Reactions: No Reported Reaction Additional Past Anesthesia/Blood Transfusion Reaction / Comment(s): dizziness Past Psychological History: No Psychological Hx Reported Past Alcohol Use History: None Reported Past Drug Use History: None Reported - Past Family History Mother Family Medical History: No Reported History General Exam Limitations: no limitations General appearance: alert, in no apparent distress Head exam: Present: atraumatic, normocephalic Eye exam: Present: normal appearance, PERRL ENT exam: Present: other (Mentation, the upper lip is swollen, base of theindurated with some yellow purulent drainage. There does not appear to be any intranasal component this is just at the base of the nose bilaterally and upper lip.) Respiratory exam: Present: normal lung sounds bilaterally. Absent: respiratory distress, wheezes Cardiovascular Exam: Present: regular rate, normal rhythm Course Vital Signs 10/02/19 10/02/19 13:25 17:00 Temperature 98 F 98.5 F Pulse Rate 99 78 Respiratory 16 18 Rate Blood Pressure 166/86 142/80 O2 Sat by Pulse 99 97 Oximetry Medical Decision Making - Medical Decision Making 54-year-old male with cellulitis of the upper lip and base of the bilateral nostrils with yellow drainage, no fluctuance that I can appreciate for drainage. I did plan to admit this patient as his blood sugar was found to be over 600 however the admitting service did not want to admit this elevated blood sugar and cellulitis as he is not in DKA he has pseudohyponatremia. His vital signs are stable is afebrile. He has mild leukocytosis at 12, stable hemoglobin. Lactic acid. After IV fluids and insulin his blood sugars 300. He will monitor his blood sugar at home. Patient is given strict return parameters he will follow-up with ENT. He is prescribed mupirocin ointment and clindamycin. - Lab Data Result diagrams: 10/02/19 14:25 10/02/19 14:25 Lab Results 10/02/19 10/02/19 10/02/19 Range/Units 14:02 14:25 14:25 WBC 12.0 H (3.8-10.6) k/uL RBC 5.22 (4.30-5.90) m/uL Hgb 15.8 (13.0-17.5) gm/dL Hct 47.3 (39.0-53.0) % MCV 90.6 (80.0-100.0) fL MCH 30.3 (25.0-35.0) pg MCHC 33.5 (31.0-37.0) g/dL RDW 12.9 (11.5-15.5) % Plt Count 266 (150-450) k/uL Neutrophils % 79 % Lymphocytes % 13 % Monocytes % 5 % Eosinophils % 1 % Basophils % 0 % Neutrophils # 9.5 H (1.3-7.7) k/uL Lymphocytes # 1.6 (1.0-4.8) k/uL Monocytes # 0.6 (0-1.0) k/uL Eosinophils # 0.2 (0-0.7) k/uL Basophils # 0.0 (0-0.2) k/uL Sodium 128 L (137-145) mmol/L Potassium 4.5 (3.5-5.1) mmol/L Chloride 93 L (98-107) mmol/L Carbon Dioxide 24 (22-30) mmol/L Anion Gap 11 mmol/L BUN 13 (9-20) mg/dL Creatinine 0.68 (0.66-1.25) mg/dL Est GFR (CKD-EPI)AfAm >90 (>60 ml/min/1.73 sqM) Est GFR (CKD-EPI)NonAf >90 (>60 ml/min/1.73 sqM) Glucose 619 H* (74-99) mg/dL POC Glucose (mg/dL) 504 H (75-99) mg/dL POC Glu Legal Administrative Assistant ID Nancy Nair Plasma Lactic Acid Mike (0.7-2.0) mmol/L Calcium 9.5 (8.4-10.2) mg/dL Magnesium 1.9 (1.6-2.3) mg/dL Total Bilirubin 1.1 (0.2-1.3) mg/dL AST 24 (17-59) U/L ALT 30 (4-49) U/L Alkaline Phosphatase 131 H (38-126) U/L Total Protein 6.7 (6.3-8.2) g/dL Albumin 4.2 (3.5-5.0) g/dL Acetone, Qual Negative (Negative) 10/02/19 10/02/19 10/02/19 Range/Units 14:25 16:22 17:15 WBC (3.8-10.6) k/uL RBC (4.30-5.90) m/uL Hgb (13.0-17.5) gm/dL Hct (39.0-53.0) % MCV (80.0-100.0) fL MCH (25.0-35.0) pg MCHC (31.0-37.0) g/dL RDW (11.5-15.5) % Plt Count (150-450) k/uL Neutrophils % % Lymphocytes % % Monocytes % % Eosinophils % % Basophils % % Neutrophils # (1.3-7.7) k/uL Lymphocytes # (1.0-4.8) k/uL Monocytes # (0-1.0) k/uL Eosinophils # (0-0.7) k/uL Basophils # (0-0.2) k/uL Sodium (137-145) mmol/L Potassium (3.5-5.1) mmol/L Chloride (98-107) mmol/L Carbon Dioxide (22-30) mmol/L Anion Gap mmol/L BUN (9-20) mg/dL Creatinine (0.66-1.25) mg/dL Est GFR (CKD-EPI)AfAm (>60 ml/min/1.73 sqM) Est GFR (CKD-EPI)NonAf (>60 ml/min/1.73 sqM) Glucose (74-99) mg/dL POC Glucose (mg/dL) 388 H 315 H (75-99) mg/dL POC Glu Legal Administrative Assistant ID Nancy Nair Kristi Plasma Lactic Acid Mike 1.6 (0.7-2.0) mmol/L Calcium (8.4-10.2) mg/dL Magnesium (1.6-2.3) mg/dL Total Bilirubin (0.2-1.3) mg/dL AST (17-59) U/L ALT (4-49) U/L Alkaline Phosphatase (38-126) U/L Total Protein (6.3-8.2) g/dL Albumin (3.5-5.0) g/dL Acetone, Qual (Negative) Disposition Clinical Impression: Cellulitis, Diabetes mellitus, Hyperglycemia Disposition: HOME SELF-CARE Condition: Fair Instructions (If sedation given, give patient instructions): Cellulitis (ED), Diabetic Hyperglycemia (ED) Additional Instructions: Please apply mupirocin ointment 3 times daily. Please take antibiotic as pres cribed. Please follow up with ENT. Please return with worsening or changing symptoms. Please monitor glucose at home. Prescriptions: Clindamycin [Cleocin] 450 mg PO Q8H #30 cap Is patient prescribed a controlled substance at d/c from ED?: No Referrals: Julian Carranza MD [Primary Care Provider] - 1-2 days Taiwo Ross MD [STAFF PHYSICIAN] - 1-2 days Time of Disposition: 17:21
[2019-10-02 14:06] LABS: Glucose,Whole Blood 504 mg/dL (75-99)
[2019-10-02] MEDS ORDERED: CLINDAMYCIN 600 MG in DEXTROSE 5% IN WATER 50 ML IVPB STA ×2 (14:07)
[2019-10-02] MEDS ORDERED: SODIUM CHLORIDE 0.9% 500 ML 500 ML IV ONE (14:07)
[2019-10-02] MEDS ORDERED: SODIUM CHLORIDE 0.9% 1,000 ML IV SCH (14:15)
[2019-10-02 14:59] LABS: Basophils % (A) 0 %; Eosinophils # (A) 0.2 k/uL (0-0.7); Eosinophils % (A) 1 %; HCT 47.3 % (39.0-53.0); HGB 15.8 gm/dL (13.0-17.5); Lymphocytes # (A) 1.6 k/uL (1.0-4.8); Lymphocytes % (A) 13 %; MCH 30.3 pg (25.0-35.0); MCHC 33.5 g/dL (31.0-37.0); MCV 90.6 fL (80.0-100.0); Mean Platelet Volume 7.6; Monocytes # (A) 0.6 k/uL (0-1.0); Monocytes % (A) 5 %; Neutrophils # (A) 9.5 k/uL (1.3-7.7); Neutrophils % (A) 79 %; Platelet Count 266 k/uL (150-450); RBC 5.22 m/uL (4.30-5.90); RDW 12.9 % (11.5-15.5)
[2019-10-02 15:10] LABS: Potassium 4.5 mmol/L (3.5-5.1)
[2019-10-02 15:11] LABS: ALT 30 U/L (4-49); AST 24 U/L (17-59); African American GFR (CKD) >90 (>60 ml/min/1.73 sqM); Albumin 4.2 g/dL (3.5-5.0); Alkaline Phosphatase 131 U/L (38-126); Anion Gap 11 mmol/L; Blood Urea Nitrogen 13 mg/dL (9-20); Calcium 9.5 mg/dL (8.4-10.2); Carbon Dioxide 24 mmol/L (22-30); Chloride 93 mmol/L (98-107); Magnesium 1.9 mg/dL (1.6-2.3); Non-African American GFR(CKD) >90 (>60 ml/min/1.73 sqM); Sodium 128 mmol/L (137-145); Total Bilirubin 1.1 mg/dL (0.2-1.3); Total Protein 6.7 g/dL (6.3-8.2)
[2019-10-02 15:27] LABS: Glucose 619 mg/dL (74-99)
[2019-10-02] MEDS ORDERED: INSULIN REGULAR 100 UNIT/ML VIAL IV ONE (15:33)
[2019-10-02] MEDS ORDERED: MUPIROCIN 2% OINT 22 GM TUBE TOPICAL SCH (16:00)
[2019-10-02 16:24] LABS: Glucose,Whole Blood 388 mg/dL (75-99)
[2019-10-02] MEDS ORDERED: IBUPROFEN 600 MG TAB PO STA (16:33)
[2019-10-02 17:17] VITALS: BP 142/80; PULSE 78; RESP 18; TEMP 98.5
[2019-10-02 17:17] LABS: Glucose,Whole Blood 315 mg/dL (75-99)
[2019-10-03] MEDS ORDERED: CLINDAMYCIN 600 MG in DEXTROSE 5% IN WATER 50 ML IVPB SCH ×2
== END 2019-10-02 17:37 | disposition home or self-care (01) ==
LOC: EC 13:19
DX: K13.0 Diseases of lips (principal); E11.65 Type 2 diabetes mellitus with hyperglycemia; D72.829 Elevated white blood cell count, unspecified; J34.0 Abscess, furuncle and carbuncle of nose; I10 Essential (primary) hypertension; Z79.4 Long term (current) use of insulin; Z79.899 Other long term (current) drug therapy; Z88.8 Allergy status to other drugs, medicaments and biological substances
CPT/HCPCS: 36415; 80053; 82009; 83605; 83735; 85025; 87040; 96361; 96365; 99284

== ENCOUNTER → 2020-01-10 | Outpatient (CLI) | payer BC ==
--- NOTE | 2020-01-10 14:23 | NM ---
EXAMINATION TYPE: NM bone 3 phase DATE OF EXAM: 01/10/2020 COMPARISON: NONE HISTORY: 54-year-old male nonhealing wound for 2 weeks, right great toe, L03.031, cellulitis of toe a nd right foot. TECHNIQUE: Triple phase bone scintigraphy was performed following the injection of 25.8 mCi Tc 99m MD P. Immediate images and 5.5 hours post injection images acquired. Imaging centered at the bilateral distal lower extremities. FINDINGS: Flow images show asymmetric hyperemia on the right, particularly to the forefoot region. Pool images show asymmetric increased soft tissue activity throughout the distal right lower extremit y and also particularly at the medial right forefoot. Delayed images show some residual soft tissue uptake throughout, patchy increased activity throughout the ankles and hindfoot regions, and asymmetric increased activity at the right great toe. IMPRESSION: 1. Prominent soft tissue uptake on the right. Findings suggest cellulitis. 2. Uptake is particularly increased at the medial right forefoot. There is mild increased uptake here even on the delayed images. Early osteomyelitis difficult to exclude. Radiographic correlation recom mended. 3. Patchy symmetric increased delayed uptake about the ankles and midfoot and hindfoot regions on bot h sides may reflect underlying arthropathy. Radiographic correlation may be helpful.
== END | disposition home or self-care (01) ==
LOC: RADNMMAIN 07:02
PROVIDERS: ATTEND Family Medicine
DX: M86.8X7 Other osteomyelitis, ankle and foot (principal); R94.8 Abnormal results of function studies of other organs and systems
CPT/HCPCS: 78315; A9503

== ENCOUNTER → 2020-01-13 | Outpatient (CLI) | payer BC ==
--- NOTE | 2020-01-13 15:58 | US ---
EXAMINATION TYPE: US venous doppler duplex LE DATE OF EXAM: 01/13/2020 3:05 PM COMPARISON: NONE CLINICAL HISTORY: I89.0 Lymphdema Lower extremity. swollen ankles, no h/o dvt, diabetic SIDE PERFORMED: Bilateral TECHNIQUE: The lower extremity deep venous system is examined utilizing real time linear array sonog caroline with graded compression, doppler sonography and color-flow sonography. VESSELS IMAGED: External Iliac Vein (EIV) Common Femoral Vein Deep Femoral Vein Greater Saphenous Vein * Femoral Vein Popliteal Vein Small Saphenous Vein * Proximal Calf Veins (* superficial vessels) Right Leg: Negative for DVT Left Leg: Negative for DVT IMPRESSION: 1. Bilateral lower extremity ultrasound negative for deep venous thrombosis.
--- NOTE | 2020-01-18 13:17 | P.ARTDOP ---
Arterial Doppler LOWER EXTREMITY ARTERIAL DOPPLER: DATE OF SERVICE: 01/13/2020 Reason for study: Right great toe ulcer. Doppler waveforms: Multiphasic bilaterally throughout with good toe waveforms. Pulse volume recording: []. Pressure gradients: None. Ankle-brachial indices: Greater than 1 bilaterally. Toe brachial indices: [] on the right, 0.77 on the left Impression: Normal study.
== END | disposition home or self-care (01) ==
LOC: RADUSWWP 14:04
PROVIDERS: ATTEND Family Medicine
DX: I89.0 Lymphedema, not elsewhere classified (principal)
CPT/HCPCS: 93922; 93970

== ENCOUNTER 2020-01-20 05:42 | Emergency (ER) | payer BC ==
[2020-01-20] MEDS ORDERED: SODIUM CHLORIDE 0.9% 500 ML 500 ML IV ONE (06:17)
--- NOTE | 2020-01-20 06:40 | ED ---
Extremity Problem HPI - General Chief complaint: Extremity Problem,Nontraumatic Stated complaint: Recheck toe infection Time Seen by Provider: 01/20/20 06:05 Source: patient Mode of arrival: ambulatory Limitations: no limitations - History of Present Illness Initial comments: 54yo male presenting for cc of wound check today. Patient states that for the past 3-4 weeks she's been struggling with a wound to the right great toe. Patient states he has neuropathy from his diabetes and had bought new boots that caused a blister that he didnt know about he states he is not always compliant with his metformin secondary to the side effect of diarrhea he states he struggles with chronic diarrhea are ready. Patient states he had his second wound care visit on Thursday. He states he did not mention anything about acute infection but did perform x-rays which revealed inconclusive about a bone infection. Pt admits to a blah feeling, but he denies fevers he denies chest pain shortness of breath up her respiratory symptoms. Patient states that he has noticed some increased redness of the right great toe as well as swelling this morning- and wanted to get it evaluated in the ER to be sure Upon arrival patient is afebrile however heart rate elevated patient does not appear toxic he is pleasant. Patient did recently stay he had vascular studies which she was told he did not have peripheral arterial or venous disease (will review chart). Has 2 more days of levaquin, pt states overall his wound has been getting better since this antibiotics. - Related Data Home Medications Medication Instructions Recorded Confirmed lisinopriL [Zestril] 20 mg PO DAILY 08/09/19 01/20/20 Albuterol Inhaler [Ventolin Hfa 1 puff INHALATION RT-Q4H PRN 01/20/20 01/20/20 Inhaler] Gabapentin 400 mg PO DAILY 01/20/20 01/20/20 Insulin Glargine,Hum.rec.anlog 40 unit SQ BID 01/20/20 01/20/20 [Lantus Solostar] Insulin Lispro [humaLOG Kwikpen] 10 unit SQ AC-TID 01/20/20 01/20/20 Insulin Lispro [humaLOG Kwikpen] See Protocol SQ AC-TID PRN 01/20/20 01/20/20 Levofloxacin [Levaquin] 500 mg PO DAILY 01/20/20 01/20/20 Rivaroxaban [Xarelto] 2.5 mg PO BID 01/20/20 01/20/20 Tiotropium [place] [Spiriva] 1 cap INHALATION RT-DAILY 01/20/20 01/20/20 Previous Rx's Medication Instructions Recorded Ibuprofen [Motrin] 800 mg PO AC-TID PRN tab 08/09/19 Omeprazole [PriLOSEC] 20 mg PO BID #60 cap 08/09/19 Levofloxacin [Levaquin] 750 mg PO DAILY 7 Days #7 tab 01/20/20 Allergies Allergy/AdvReac Type Severity Reaction Status Date / Time metformin AdvReac Nausea & Verified 01/20/20 07:27 Vomiting & Diarrhea Review of Systems ROS Statement: Those systems with pertinent positive or pertinent negative responses have been documented in the HPI. ROS Other: All systems not noted in ROS Statement are negative. Past Medical History Past Medical History: Diabetes Mellitus, GERD/Reflux, Hypertension Additional Past Medical History / Comment(s): occ. pain with swallowing, hiatal hernia, dry skin, hx kidney stones History of Any Multi-Drug Resistant Organisms: None Reported Past Surgical History: Ear Surgery, Orthopedic Surgery Additional Past Surgical History / Comment(s): cystoscopy/stent in urethra, olga carpal tunnel, trigger finger left thumb, rt thumb surgery Past Anesthesia/Blood Transfusion Reactions: No Reported Reaction Additional Past Anesthesia/Blood Transfusion Reaction / Comment(s): dizziness Past Psychological History: No Psychological Hx Reported Smoking Status: Never smoker Past Alcohol Use History: None Reported Past Drug Use History: None Reported - Past Family History Mother Family Medical History: No Reported History General Exam - General Exam Comments Initial Comments: General: The patient is awake and alert, in no distress Eye: Pupils are equal, round and reactive to light, extra-ocular movements are intact. No nystagmus. There is normal conjunctiva bilaterally. No signs of icterus. Cardiovascular: There is a regular rate and rhythm. No murmur, rub or gallop is appreciated. Respiratory: Lungs are clear to auscultation, respirations are non-labored, breath sounds are equal. No wheezes, stridor, rales, or rhonchi. Gastrointestinal: Soft, non-distended, non-tender abdomen without masses or organomegaly noted. There is no rebound or guarding present. Musculoskeletal: Normal ROM, no tenderness. Strength 5/5. Sensation intact. DP pulses equal bilaterally 2+. Neurological: A&O x 3. CN II-XII intact grossly, There are no obvious motor or sensory deficits. Coordination appears grossly intact. Speech is normal. Skin: Skin is warm and dry and no rashes. Erythema and warmth with wound noted to the left (medial aspect) of right great toe, no strong odors. Psychiatric: Cooperative, appropriate mood & affect, normal judgment. Limitations: no limitations Course Vital Signs 01/20/20 05:50 Temperature 98 F Pulse Rate 109 H Respiratory 17 Rate Blood Pressure 155/87 O2 Sat by Pulse 98 Oximetry Medical Decision Making - Medical Decision Making 54yo prsenting for wound check. on levaquin. patient states was improving, he states this morning looked slightly more red swelling and wanted to be sure it was ok. patient on reevaluation states since his foot has been up on the bed it looks even better than yesterday, and now less red. the redness was worse when legs hanging over bed and has improved with elevation. Patient labs stable no leukocytosis. No osteomyelitis on xr. scheduled wound care. pt states levaquin has been helping and previous cultures were reviewed. Patient will be discharged with PCP f/u, wound care f/u and continuatino of levaquin. Patient is agreeable to care plan. I discussed at length the black box warnings of levaquin including aortic dissection. Dr. Rogers agreeable to care plan. Blood cultures pending. - Lab Data Result diagrams: 01/20/20 06:40 01/20/20 06:40 Lab Results 01/20/20 01/20/20 01/20/20 Range/Units 06:40 06:40 06:40 WBC 7.6 (3.8-10.6) k/uL RBC 4.72 (4.30-5.90) m/uL Hgb 14.6 (13.0-17.5) gm/dL Hct 41.6 (39.0-53.0) % MCV 88.2 (80.0-100.0) fL MCH 30.9 (25.0-35.0) pg MCHC 35.0 (31.0-37.0) g/dL RDW 12.9 (11.5-15.5) % Plt Count 330 (150-450) k/uL MPV 6.8 Neutrophils % 62 % Lymphocytes % 28 % Monocytes % 6 % Eosinophils % 2 % Basophils % 1 % Neutrophils # 4.7 (1.3-7.7) k/uL Lymphocytes # 2.1 (1.0-4.8) k/uL Monocytes # 0.5 (0-1.0) k/uL Eosinophils # 0.2 (0-0.7) k/uL Basophils # 0.0 (0-0.2) k/uL Sodium 133 L (137-145) mmol/L Potassium 4.3 (3.5-5.1) mmol/L Chloride 100 (98-107) mmol/L Carbon Dioxide 26 (22-30) mmol/L Anion Gap 7 mmol/L BUN 16 (9-20) mg/dL Creatinine 0.95 (0.66-1.25) mg/dL Est GFR (CKD-EPI)AfAm >90 (>60 ml/min/1.73 sqM) Est GFR (CKD-EPI)NonAf >90 (>60 ml/min/1.73 sqM) Glucose 485 H (74-99) mg/dL POC Glucose (mg/dL) (75-99) mg/dL POC Glu Document Processing Specialist ID Plasma Lactic Acid Mike 1.9 (0.7-2.0) mmol/L Calcium 9.2 (8.4-10.2) mg/dL Total Bilirubin 0.5 (0.2-1.3) mg/dL AST 29 (17-59) U/L ALT 31 (4-49) U/L Alkaline Phosphatase 91 (38-126) U/L Total Protein 6.1 L (6.3-8.2) g/dL Albumin 3.7 (3.5-5.0) g/dL 01/20/20 Range/Units 07:47 WBC (3.8-10.6) k/uL RBC (4.30-5.90) m/uL Hgb (13.0-17.5) gm/dL Hct (39.0-53.0) % MCV (80.0-100.0) fL MCH (25.0-35.0) pg MCHC (31.0-37.0) g/dL RDW (11.5-15.5) % Plt Count (150-450) k/uL MPV Neutrophils % % Lymphocytes % % Monocytes % % Eosinophils % % Basophils % % Neutrophils # (1.3-7.7) k/uL Lymphocytes # (1.0-4.8) k/uL Monocytes # (0-1.0) k/uL Eosinophils # (0-0.7) k/uL Basophils # (0-0.2) k/uL Sodium (137-145) mmol/L Potassium (3.5-5.1) mmol/L Chloride (98-107) mmol/L Carbon Dioxide (22-30) mmol/L Anion Gap mmol/L BUN (9-20) mg/dL Creatinine (0.66-1.25) mg/dL Est GFR (CKD-EPI)AfAm (>60 ml/min/1.73 sqM) Est GFR (CKD-EPI)NonAf (>60 ml/min/1.73 sqM) Glucose (74-99) mg/dL POC Glucose (mg/dL) 358 H (75-99) mg/dL POC Glu Document Processing Specialist ID Nora, II, [place] Plasma Lactic Acid Mike (0.7-2.0) mmol/L Calcium (8.4-10.2) mg/dL Total Bilirubin (0.2-1.3) mg/dL AST (17-59) U/L ALT (4-49) U/L Alkaline Phosphatase (38-126) U/L Total Protein (6.3-8.2) g/dL Albumin (3.5-5.0) g/dL Disposition Clinical Impression: Open wound of right great toe, Elevated glucose Disposition: HOME SELF-CARE Condition: Good Instructions (If sedation given, give patient instructions): Chronic Wound Care (ED) Additional Instructions: Please use medication as discussed. Please follow-up with family doctor in the next 2 days.. Please return to emergency room if the symptoms increase or worsen or for any other concerns. Prescriptions: Levofloxacin [Levaquin] 750 mg PO DAILY 7 Days #7 tab Is patient prescribed a controlled substance at d/c from ED?: No Referrals: Julian Carranza MD [Primary Care Provider] - 1-2 days Time of Disposition: 08:04
[2020-01-20] MEDS ORDERED: LEVOFLOXACIN 750MG-D5W PMX 750 MG in DEXTROSE/WATER 1 150ML.BAG IVPB STA (06:42)
[2020-01-20 06:51] LABS: Basophils % (A) 1 %; Eosinophils # (A) 0.2 k/uL (0-0.7); Eosinophils % (A) 2 %; HCT 41.6 % (39.0-53.0); HGB 14.6 gm/dL (13.0-17.5); Lymphocytes # (A) 2.1 k/uL (1.0-4.8); Lymphocytes % (A) 28 %; MCH 30.9 pg (25.0-35.0); MCV 88.2 fL (80.0-100.0); Mean Platelet Volume 6.8; Monocytes # (A) 0.5 k/uL (0-1.0); Monocytes % (A) 6 %; Neutrophils # (A) 4.7 k/uL (1.3-7.7); Neutrophils % (A) 62 %; Platelet Count 330 k/uL (150-450); RBC 4.72 m/uL (4.30-5.90); RDW 12.9 % (11.5-15.5); WBC 7.6 k/uL (3.8-10.6)
[2020-01-20 07:03] LABS: ALT 31 U/L (4-49); AST 29 U/L (17-59); African American GFR (CKD) >90 (>60 ml/min/1.73 sqM); Albumin 3.7 g/dL (3.5-5.0); Alkaline Phosphatase 91 U/L (38-126); Anion Gap 7 mmol/L; Blood Urea Nitrogen 16 mg/dL (9-20); Calcium 9.2 mg/dL (8.4-10.2); Carbon Dioxide 26 mmol/L (22-30); Chloride 100 mmol/L (98-107); Glucose 485 mg/dL (74-99); Non-African American GFR(CKD) >90 (>60 ml/min/1.73 sqM); Potassium 4.3 mmol/L (3.5-5.1); Sodium 133 mmol/L (137-145); Total Bilirubin 0.5 mg/dL (0.2-1.3); Total Protein 6.1 g/dL (6.3-8.2)
[2020-01-20] MEDS ORDERED: SODIUM CHLORIDE 0.9% 1,000 ML IV ONE (07:08)
[2020-01-20] MEDS ORDERED: INSULIN REGULAR 100 UNIT/ML VIAL IV ONE (07:08)
--- NOTE | 2020-01-20 07:38 | XR ---
EXAMINATION TYPE: XR toes RT DATE OF EXAM: 01/20/2020 COMPARISON: NONE HISTORY: 54-year-old male with infection, rule out osteomyelitis TECHNIQUE: 3 views coned down right first toe FINDINGS: There is soft tissue ulceration along the medial distal aspect of the great toe. No underlying osseou s erosions or lytic destruction. No periostitis or osteolysis. No acute fracture, subluxation, disloc ation seen. IMPRESSION: Soft tissue ulcer along the distal and medial aspect of the great toe. No underlying radiographic lorin dence for osteomyelitis at this time.
[2020-01-20] MEDS ORDERED: INSULIN REGULAR 100 UNIT/ML VIAL SQ ONE (07:40)
[2020-01-20 07:48] LABS: Glucose,Whole Blood 358 mg/dL (75-99)
[2020-01-20 08:21] LABS: Glucose,Whole Blood 369 mg/dL (75-99)
[2020-01-20 08:43] VITALS: BP 150/81; PULSE 93; RESP 18; TEMP 98.4
== END 2020-01-20 08:42 | disposition home or self-care (01) ==
LOC: EC 05:42
DX: E11.40 Type 2 diabetes mellitus with diabetic neuropathy, unspecified (principal); S91.101A Unspecified open wound of right great toe without damage to nail, initial encounter; Z88.8 Allergy status to other drugs, medicaments and biological substances; I10 Essential (primary) hypertension; Z79.4 Long term (current) use of insulin; Z79.01 Long term (current) use of anticoagulants; X58.XXXA Exposure to other specified factors, initial encounter
CPT/HCPCS: 36415; 80053; 83605; 85025; 87040; 73660; 96365; 96366; 99283; J1956

== ENCOUNTER → 2020-03-22 | Outpatient (CLI) | payer BC ==
--- NOTE | 2020-03-22 11:31 | ECHOF ---
Referral Reason:M79.89 soft tissue disorder MEASUREMENTS -------- HEIGHT: 172.7 cm WEIGHT: 108.4 kg BP: RVIDd: 3.4 cm (< 3.3) IVSd: 1.3 cm (0.6 - 1.1) LVIDd: 4.2 cm (3.9 - 5.3) LVPWd: 1.4 cm (0.6 - 1.1) IVSs: 1.8 cm LVIDs: 3.5 cm LVPWs: 1.4 cm LA Diam: 3.8 cm (2.7 - 3.8) Ao Diam: 4.1 cm (2.0 - 3.7) AV Cusp: 2.1 cm (1.5 - 2.6) MV EXCURSION: 19.783 mm (> 18.000) MV EF SLOPE: 93 mm/s (70 - 150) EPSS: 0.4 cm MV E Garcia: 0.57 m/s MV DecT: 207 ms MV A Garcia: 0.91 m/s MV E/A Ratio: 0.62 RAP: 5.00 mmHg RVSP: 11.77 mmHg FINDINGS -------- Sinus rhythm. This was a technically good study. The left ventricular size is normal. There is mild concentric left ventricular hypertrophy. Overa ll left ventricular systolic function is low-normal with, an EF between 50 - 55 %. The right ventricular wall thickness is normal measuring < 5mm. Normal LA size by volume 22+/-6 ml/m2. The right atrial size is normal. Aortic Root is dilated and measures 4.2cm. Mild mitral regurgitation is present. Mild tricuspid regurgitation present. Right ventricular systolic pressure is normal at < 35 mmHg. There is no pulmonic regurgitation present. The aortic root size is normal. There is no pericardial effusion. CONCLUSIONS -------- 1. The left ventricular size is normal. 2. There is mild concentric left ventricular hypertrophy. 3. Overall left ventricular systolic function is low-normal with, an EF between 50 - 55 %. 4. The right ventricular wall thickness is normal measuring < 5mm. 5. Normal LA size by volume 22+/-6 ml/m2. 6. The right atrial size is normal. 7. Aortic Root is dilated and measures 4.2cm. 8. Mild mitral regurgitation is present. 9. Mild tricuspid regurgitation present. 10. The aortic root size is normal. 11. There is no pericardial effusion. EMAIL MARKETER: Bing Dc RDCS
== END | disposition home or self-care (01) ==
LOC: RADECHMAIN 08:48
PROVIDERS: ATTEND Family Medicine
DX: I08.1 Rheumatic disorders of both mitral and tricuspid valves (principal); I77.819 Aortic ectasia, unspecified site
CPT/HCPCS: 93306

== ENCOUNTER → 2020-05-01 | Outpatient (CLI) | payer BC ==
--- NOTE | 2020-05-01 15:51 | XR ---
EXAMINATION TYPE: XR foot complete RT DATE OF EXAM: 05/01/2020 CLINICAL HISTORY: Foreign body right great toe. Pain. TECHNIQUE: Frontal, lateral, and oblique images of the right foot are obtained. COMPARISON: Right toe x-ray January 20, 2020 FINDINGS: There is no acute fracture/dislocation evident in the right foot. The joint spaces in the right foot appear within normal limits. Tiny inferior calcaneal spur. No suspicious new bony destruc tion or new obvious radiodense foreign body with particular attention to the first toe at area of cli nical concern. Improvement in soft tissue ulceration noted. IMPRESSION: As above.
== END | disposition home or self-care (01) ==
LOC: LABWHC1 15:16
PROVIDERS: ATTEND Nurse Practitioner Family
DX: E08.621 Diabetes mellitus due to underlying condition with foot ulcer (principal); L97.512 Non-pressure chronic ulcer of other part of right foot with fat layer exposed; M77.31 Calcaneal spur, right foot

== ENCOUNTER 2020-05-08 07:51 | Emergency (ER) | payer BC ==
[2020-05-08 08:02] VITALS: RESP 18
[2020-05-08] MEDS ORDERED: HYDROmorphone 0.5 MG/0.5 ML SYRINGE IVP STA (08:08)
--- NOTE | 2020-05-08 09:02 | XR ---
Left shoulder HISTORY: Trauma 3-4 days prior, question dislocation 3 views of the left shoulder Distal acromion is downturned. No evident fracture. Alignment is maintained. Left lung apex as visual ized is normal. IMPRESSION: No evident fracture or dislocation. Shoulder MRI may be of benefit.
--- NOTE | 2020-05-08 09:10 | ED ---
Upper Extremity HPI - General Chief Complaint: Extremity Injury, Upper Stated Complaint: arm possibly out of socket Time Seen by Provider: 05/08/20 08:05 Source: patient Mode of arrival: ambulatory Limitations: no limitations - History of Present Illness Initial Comments: 4-year-old male presented for left shoulder pain. Patient states his prior to arrival he was using a deisy he states when he plugged in and muscle are been turned on and it grew up the table and pulled his arm. He states he thinks he pulled out of the socket. He denies elbow or wrist pain. She denies falls or direct trauma. Patient denies pain prior to this incident he states the pain is mostly anterior. Remaining review of systems negative upon arrival patient appears well and nontoxic no distress denies any other areas of injury or discomfort. - Related Data Home Medications Medication Instructions Recorded Confirmed lisinopriL [Zestril] 20 mg PO DAILY 08/09/19 05/08/20 Albuterol Inhaler [Ventolin Hfa 2 puff INHALATION RT-Q4H PRN 01/20/20 05/08/20 Inhaler] Gabapentin 400 mg PO DAILY 01/20/20 05/08/20 Insulin Glargine,Hum.rec.anlog 50 - 60 unit SQ BID 01/20/20 05/08/20 [Lantus Solostar] Insulin Lispro [humaLOG Kwikpen] 10 unit SQ AC-TID 01/20/20 05/08/20 Insulin Lispro [humaLOG Kwikpen] See Protocol SQ AC-TID PRN 01/20/20 05/08/20 Rivaroxaban [Xarelto] 2.5 mg PO BID 01/20/20 05/08/20 Tiotropium [place] [Spiriva] 1 cap INHALATION RT-DAILY 01/20/20 05/08/20 Furosemide [Lasix] 40 mg PO DAILY 05/08/20 05/08/20 Ketoconazole 2% Cream [Nizoral 2%] 1 applic TOPICAL DAILY 05/08/20 05/08/20 Previous Rx's Medication Instructions Recorded Omeprazole [PriLOSEC] 20 mg PO BID #60 cap 08/09/19 Allergies Allergy/AdvReac Type Severity Reaction Status Date / Time metformin AdvReac Nausea & Verified 05/08/20 09:01 Vomiting & Diarrhea Vshyjlp-Xmh-Mgb Reductase AdvReac liver Verified 05/08/20 09:01 Inhibitor problems Review of Systems ROS Statement: Those systems with pertinent positive or pertinent negative responses have been documented in the HPI. ROS Other: All systems not noted in ROS Statement are negative. Past Medical History Past Medical History: Diabetes Mellitus, GERD/Reflux, Hypertension Additional Past Medical History / Comment(s): occ. pain with swallowing, hiatal hernia, dry skin, hx kidney stones History of Any Multi-Drug Resistant Organisms: MRSA Date of last positivie culture/infection: 2019 MDRO Source:: hand Past Surgical History: Ear Surgery, Orthopedic Surgery Additional Past Surgical History / Comment(s): cystoscopy/stent in urethra, olga carpal tunnel, trigger finger left thumb, rt thumb surgery Past Anesthesia/Blood Transfusion Reactions: No Reported Reaction Additional Past Anesthesia/Blood Transfusion Reaction / Comment(s): dizziness Past Psychological History: No Psychological Hx Reported Smoking Status: Current every day smoker Past Alcohol Use History: None Reported Past Drug Use History: None Reported - Past Family History Mother Family Medical History: No Reported History General Exam - General Exam Comments Initial Comments: General: The patient is awake and alert, in no distress, and does not appear acutely ill. Eye: Pupils are equal, round and reactive to light, extra-ocular movements are intact. No nystagmus. There is normal conjunctiva bilaterally. No signs of icterus. Cardiovascular: There is a regular rate and rhythm. No murmur, rub or gallop is appreciated. Respiratory: Lungs are clear to auscultation, respirations are non-labored, breath sounds are equal. No wheezes, stridor, rales, or rhonchi. Gastrointestinal: Soft, non-distended, non-tender abdomen without masses or organomegaly noted. There is no rebound or guarding present. Musculoskeletal: No gross deformity on examination redness. Patient's pain with overhead range of motion and tenderness over the AC joint. Normal ROM, no tenderness elbows wrists and digits of the hands bilaterally. Strength 5/5. Sensation intact proximal and distal to injury site equal comparison with the right upper extremity. Radial pulses equal bilaterally 2+. She is able to make the fingers crossed thumbs-up up was a small digit and thumb extend at the wrist Neurological: A&O x 3. CN II-XII intact grossly, There are no obvious motor or sensory deficits. Coordination appears grossly intact. Speech is normal. Skin: Skin is warm and dry and no rashes or lesions are noted. Psychiatric: Cooperative, appropriate mood & affect, normal judgment. Limitations: no limitations Course Vital Signs 05/08/20 05/08/20 07:59 09:49 Temperature 98.1 F 98 F Pulse Rate 99 88 Respiratory 18 18 Rate Blood Pressure 198/103 146/100 O2 Sat by Pulse 99 98 Oximetry Medical Decision Making - Medical Decision Making 54yo male presenting for cc of right shoulder pain after pulled bystander. X- rays negative for dislocation or fracture. Patient some pain over the AC joint--cannot rule out slight AC seperation Patient placed in sling-will be treated symptomatically and is to f/u with orthopedic surgery. patient imaging reviewed with Dr. Redmond who is agreeable to care plan and discharge. Disposition Clinical Impression: Shoulder strain Disposition: HOME SELF-CARE Condition: Good Instructions (If sedation given, give patient instructions): Rotator Cuff Injury (ED) Additional Instructions: Please use medication as discussed. Please follow-up with orthopedic surgery in next 3-4 days. use sling for comfort. Please return to emergency room if the symptoms increase or worsen or for any other concerns. Is patient prescribed a controlled substance at d/c from ED?: No Referrals: Julian Carranza MD [Primary Care Provider] - 1-2 days Luis Celestin PAC [PHYSICIAN MANAGER COUNCIL] - 1-2 days Time of Disposition: 09:10
[2020-05-08 09:51] VITALS: BP 146/100; PULSE 88; TEMP 98
== END 2020-05-08 09:49 | disposition home or self-care (01) ==
LOC: EC 07:51
DX: S46.912A Strain of unspecified muscle, fascia and tendon at shoulder and upper arm level, left arm, initial encounter (principal); E11.9 Type 2 diabetes mellitus without complications; I10 Essential (primary) hypertension; F17.200 Nicotine dependence, unspecified, uncomplicated; Z79.4 Long term (current) use of insulin; Z87.442 Personal history of urinary calculi; W22.8XXA Striking against or struck by other objects, initial encounter
CPT/HCPCS: 73030; 99283; 96374; J1170

== ENCOUNTER 2020-05-18 21:09 | Emergency (ER) | payer BC ==
[2020-05-18 21:14] VITALS: BP 191/108; PULSE 100; RESP 20; TEMP 97.7
[2020-05-18] MEDS ORDERED: SULFAMETHOX-TMP 800-160MG 1 EACH TAB PO STA (21:36)
[2020-05-18] MEDS ORDERED: CEPHALEXIN 500 MG CAP PO STA (21:36)
[2020-05-18] MEDS ORDERED: BACITRACIN OINT 1 EACH PACKET TOPICAL ONE (21:36)
--- NOTE | 2020-05-18 21:39 | ED ---
Skin/Abscess/FB HPI - General Chief complaint: Skin/Abscess/Foreign Body Stated complaint: LT wrist cyst Time Seen by Provider: 05/18/20 21:17 Source: patient Mode of arrival: ambulatory Limitations: no limitations - History of Present Illness Initial comments: Patient is a 54-year-old male, with history of diabetes, presenting to the emergency Department with complaints of a sore on his left wrist. Patient states he recently had a shoulder injury and has been wearing a sling and has been rubbing on his left wrist. Patient states he noticed 2 days ago that the sword turned into a larger blister and now there is some redness around it and he is concerned for infection. He denies any fever or chills. He states he no longer has to wear the sling. He states yesterday he did open up and started draining. He has no further complaints at this time. - Related Data Home Medications Medication Instructions Recorded Confirmed lisinopriL [Zestril] 20 mg PO DAILY 08/09/19 05/08/20 Albuterol Inhaler [Ventolin Hfa 2 puff INHALATION RT-Q4H PRN 01/20/20 05/08/20 Inhaler] Gabapentin 400 mg PO DAILY 01/20/20 05/08/20 Insulin Glargine,Hum.rec.anlog 50 - 60 unit SQ BID 01/20/20 05/08/20 [Lantus Solostar] Insulin Lispro [humaLOG Kwikpen] 10 unit SQ AC-TID 01/20/20 05/08/20 Insulin Lispro [humaLOG Kwikpen] See Protocol SQ AC-TID PRN 01/20/20 05/08/20 Rivaroxaban [Xarelto] 2.5 mg PO BID 01/20/20 05/08/20 Tiotropium [place] [Spiriva] 1 cap INHALATION RT-DAILY 01/20/20 05/08/20 Furosemide [Lasix] 40 mg PO DAILY 05/08/20 05/08/20 Ketoconazole 2% Cream [Nizoral 2%] 1 applic TOPICAL DAILY 05/08/20 05/08/20 Previous Rx's Medication Instructions Recorded Omeprazole [PriLOSEC] 20 mg PO BID #60 cap 08/09/19 Cephalexin [Keflex] 500 mg PO Q6HR 5 Days #20 cap 05/18/20 Sulfamethox-Tmp 800-160Mg [Bactrim 1 each PO Q12HR 5 Days #10 tab 05/18/20 Ds] Allergies Allergy/AdvReac Type Severity Reaction Status Date / Time metformin AdvReac Nausea & Verified 05/18/20 21:14 Vomiting & Diarrhea Bawjsnq-Rql-Fxg Reductase AdvReac liver Verified 05/18/20 21:14 Inhibitor problems Review of Systems ROS Statement: Those systems with pertinent positive or pertinent negative responses have been documented in the HPI. ROS Other: All systems not noted in ROS Statement are negative. Past Medical History Past Medical History: Diabetes Mellitus, GERD/Reflux, Hypertension Additional Past Medical History / Comment(s): occ. pain with swallowing, hiatal hernia, dry skin, hx kidney stones History of Any Multi-Drug Resistant Organisms: MRSA Date of last positivie culture/infection: 2019 MDRO Source:: hand Past Surgical History: Ear Surgery, Orthopedic Surgery Additional Past Surgical History / Comment(s): cystoscopy/stent in urethra, olga carpal tunnel, trigger finger left thumb, rt thumb surgery Past Anesthesia/Blood Transfusion Reactions: No Reported Reaction Additional Past Anesthesia/Blood Transfusion Reaction / Comment(s): dizziness Past Psychological History: No Psychological Hx Reported Smoking Status: Former smoker Past Alcohol Use History: None Reported Past Drug Use History: None Reported - Past Family History Mother Family Medical History: No Reported History General Exam - General Exam Comments Initial Comments: GENERAL: Patient is well-developed and well-nourished. Patient is nontoxic and in no acute distress. HEAD: Atraumatic, normocephalic. EYES: Pupils equal round and reactive to light, extraocular movements intact, sclera anicteric, conjunctiva are normal. Eyelids were unremarkable. ENT: TMs normal, nares patent, oropharynx clear without exudates. Moist mucous membranes. NECK: Normal range of motion, supple without lymphadenopathy or JVD. LUNGS: Unlabored respirations. Breath sounds clear to auscultation bilaterally and equal. No wheezes rales or rhonchi. HEART: Regular rate and rhythm without murmurs, rubs or gallops. ABDOMEN: Soft, nontender, normoactive bowel sounds. No guarding, no rebound. No masses appreciated. : Deferred MUSCULOSKELETAL: Decreased active range of motion of the left upper extremity secondary to recent injury. Rest of extremities are with adequate strength and normal range of motion, no pitting or edema. No clubbing or cyanosis. NEUROLOGICAL: Patient is alert and oriented x 3. Motor and sensory are also intact. Normal speech, normal gait. PSYCH: Normal mood, normal affect. SKIN: Warm, Dry, normal turgor, no rashes. Patient has a small, dime-sized blood- filled blister on of his left wrist with some drainage present, surrounding erythema and some mild swelling. Limitations: no limitations Course Vital Signs 05/18/20 21:09 Temperature 97.7 F Pulse Rate 100 Respiratory 20 Rate Blood Pressure 191/108 O2 Sat by Pulse 98 Oximetry Medical Decision Making - Medical Decision Making Patient is a 54-year-old male here with a 1 cm, dime-sized blood blister that seems to be turning into cellulitis of his left wrist. His vital signs are stable, no fevers. Patient will be started on Keflex and Bactrim. First dose given in the ER. Patient will also do topical bacitracin cream. Patient is stable for discharge. Patient is in agreement with this plan of care. Return parameters were discussed with the patient and they verbalized understanding. Case discussed with Dr. Gillette. Disposition Clinical Impression: Cellulitis of left wrist Disposition: HOME SELF-CARE Condition: Stable Instructions (If sedation given, give patient instructions): Cellulitis (ED) Additional Instructions: Please return to the Emergency Department if symptoms worsen or any other concerns. Take antibiotics as prescribed. Keep wound clean and dry. Apply topical antibiotic twice a day. Follow-up with your regular doctor. Prescriptions: Sulfamethox-Tmp 800-160Mg [Bactrim Ds] 1 each PO Q12HR 5 Days #10 tab Cephalexin [Keflex] 500 mg PO Q6HR 5 Days #20 cap Is patient prescribed a controlled substance at d/c from ED?: No Referrals: Julian Carranza MD [Primary Care Provider] - 1-2 days
== END 2020-05-18 22:06 | disposition home or self-care (01) ==
LOC: EC 21:09
DX: L03.114 Cellulitis of left upper limb (principal); E11.9 Type 2 diabetes mellitus without complications; I10 Essential (primary) hypertension; K21.9 Gastro-esophageal reflux disease without esophagitis; Z79.4 Long term (current) use of insulin; Z87.891 Personal history of nicotine dependence
CPT/HCPCS: 99283

== ENCOUNTER → 2020-05-18 | Outpatient (CLI) | payer BC ==
--- NOTE | 2020-05-18 23:46 | MR ---
EXAMINATION TYPE: MR shoulder LT wo con DATE OF EXAM: 05/18/2020 COMPARISON: None HISTORY: Left shoulder pain for 2 and a half years. Multiplanar multiecho imaging of the left shoulder was performed without contrast. There is shoulder joint effusion. There is some narrowing of the shoulder joint space. The glenoid la bra appear intact. Biceps tendon is intact. There is fluid around the biceps tendon. There is increas ed signal in the subscapularis tendon. The supraspinatus tendon appears intact. There is no retraction. There is hypertrophic spurring at th e AC joint with minimal subacromial impingement. The humeral head is intact. There is no evidence of a fracture. IMPRESSION: Shoulder joint effusion. Subscapularis tendon tear. No evidence of any significant tear of the supras pinatus tendon. There are small areas of degenerative change within the supraspinatus tendon. Mild sh oulder joint space narrowing
== END ==
LOC: RADMRIMAIN 19:59
PROVIDERS: ATTEND Orthopaedic Surgery
DX: M75.112 Incomplete rotator cuff tear or rupture of left shoulder, not specified as traumatic (principal); M19.012 Primary osteoarthritis, left shoulder

== ENCOUNTER 2020-06-17 05:37 | Emergency (ER) | payer BC ==
[2020-06-17 06:03] VITALS: RESP 18
[2020-06-17 06:04] LABS: Glucose,Whole Blood 310 mg/dL (75-99)
[2020-06-17] MEDS ORDERED: SODIUM CHLORIDE 0.9% 500 ML 500 ML IV STA (06:04)
[2020-06-17] MEDS ORDERED: ACETAMINOPHEN TAB 500 MG TAB PO STA (06:04)
[2020-06-17] MEDS ORDERED: IBUPROFEN 600 MG TAB PO STA (06:04)
[2020-06-17] MEDS ORDERED: PROMETHAZINE HCL 6.25 MG/5 ML CUP PO STA (06:06)
[2020-06-17] MEDS ORDERED: SODIUM CHLORIDE 0.9% 1,000 ML IV ONE (06:06)
--- NOTE | 2020-06-17 06:27 | ED ---
General Adult HPI - General Chief complaint: Upper Respiratory Infection Stated complaint: SHELBY Time Seen by Provider: 06/17/20 05:53 Source: patient, RN notes reviewed, old records reviewed Mode of arrival: ambulatory Limitations: no limitations - History of Present Illness Initial comments: 54-year-old male presents emergency department today for cough shortness of breath. He reports symptoms of been worsening for the past 3 days. Patient reports the low grade fever 100.6. He denies any history of sick contacts. Does report that his father started to become sick after he did weekend. Patient states that he is a former smoker. Patient reports that he has history of diabetes and hypertension. Patient states that he has been having severe c oughing spells. He complains of mild nausea with no vomiting or diarrhea. - Related Data Home Medications Medication Instructions Recorded Confirmed lisinopriL [Zestril] 20 mg PO DAILY 08/09/19 05/08/20 Albuterol Inhaler [Ventolin Hfa 2 puff INHALATION RT-Q4H PRN 01/20/20 05/08/20 Inhaler] Gabapentin 400 mg PO DAILY 01/20/20 05/08/20 Insulin Glargine,Hum.rec.anlog 50 - 60 unit SQ BID 01/20/20 05/08/20 [Lantus Solostar] Insulin Lispro [humaLOG Kwikpen] 10 unit SQ AC-TID 01/20/20 05/08/20 Insulin Lispro [humaLOG Kwikpen] See Protocol SQ AC-TID PRN 01/20/20 05/08/20 Rivaroxaban [Xarelto] 2.5 mg PO BID 01/20/20 05/08/20 Tiotropium [place] [Spiriva] 1 cap INHALATION RT-DAILY 01/20/20 05/08/20 Furosemide [Lasix] 40 mg PO DAILY 05/08/20 05/08/20 Ketoconazole 2% Cream [Nizoral 2%] 1 applic TOPICAL DAILY 05/08/20 05/08/20 Previous Rx's Medication Instructions Recorded Omeprazole [PriLOSEC] 20 mg PO BID #60 cap 08/09/19 Cephalexin [Keflex] 500 mg PO Q6HR 5 Days #20 cap 05/18/20 Sulfamethox-Tmp 800-160Mg [Bactrim 1 each PO Q12HR 5 Days #10 tab 05/18/20 Ds] Azithromycin [Zithromax Z-pack (6 0 mg PO DIRECTED 5 Days #6 tab 06/17/20 tabs)] Promethazine/Dextromethorphan 5 ml PO TID #60 ml 06/17/20 [Phenergan DM Syrup] Allergies Allergy/AdvReac Type Severity Reaction Status Date / Time metformin AdvReac Nausea & Verified 06/17/20 06:03 Vomiting & Diarrhea Thsimcf-Voq-Ytf Reductase AdvReac liver Verified 06/17/20 06:03 Inhibitor problems Review of Systems ROS Statement: Those systems with pertinent positive or pertinent negative responses have been documented in the HPI. ROS Other: All systems not noted in ROS Statement are negative. Past Medical History Past Medical History: Diabetes Mellitus, GERD/Reflux, Hypertension Additional Past Medical History / Comment(s): occ. pain with swallowing, hiatal hernia, dry skin, hx kidney stones History of Any Multi-Drug Resistant Organisms: MRSA Date of last positivie culture/infection: 2019 MDRO Source:: hand Past Surgical History: Ear Surgery, Orthopedic Surgery Additional Past Surgical History / Comment(s): cystoscopy/stent in urethra, olga carpal tunnel, trigger finger left thumb, rt thumb surgery Past Anesthesia/Blood Transfusion Reactions: No Reported Reaction Additional Past Anesthesia/Blood Transfusion Reaction / Comment(s): dizziness Past Psychological History: No Psychological Hx Reported Smoking Status: Former smoker Past Alcohol Use History: None Reported Past Drug Use History: None Reported - Past Family History Mother Family Medical History: No Reported History General Exam - General Exam Comments Initial Comments: 54-year-old male. Alert and oriented. Limitations: no limitations General appearance: alert, in no apparent distress Head exam: Present: atraumatic, normocephalic, normal inspection Eye exam: Present: normal appearance, PERRL, EOMI. Absent: scleral icterus, conjunctival injection, periorbital swelling ENT exam: Present: normal exam, mucous membranes moist Neck exam: Present: normal inspection. Absent: tenderness, meningismus, lymphadenopathy Respiratory exam: Present: normal lung sounds bilaterally. Absent: respiratory distress, wheezes, rales, rhonchi, stridor Cardiovascular Exam: Present: regular rate, normal rhythm, normal heart sounds. Absent: systolic murmur, diastolic murmur, rubs, gallop, clicks GI/Abdominal exam: Present: soft, tenderness, normal bowel sounds. Absent: distended, guarding, rebound, rigid Extremities exam: Present: normal inspection, full ROM, normal capillary refill. Absent: tenderness, pedal edema, joint swelling, calf tenderness Back exam: Present: normal inspection Neurological exam: Present: alert, oriented X3, CN II-XII intact Psychiatric exam: Present: normal affect, normal mood Skin exam: Present: warm, dry, intact, normal color. Absent: rash Course Vital Signs 06/17/20 05:54 Temperature 100.6 F H Pulse Rate 95 Respiratory 18 Rate Blood Pressure 162/83 O2 Sat by Pulse 98 Oximetry Medical Decision Making - Medical Decision Making This patient's a 54-year-old male who presents emergency department today with cough and body aches for the past 2 days. Patient is positive for covid 19 infection today. Patient has no signs of hypoxia, oxygen 100% on room air. Lung sounds are clear. Chest x-ray shows no significant pneumonia. Patient was aware the chest x-ray shows a small 6mm nodule and may require computed tomography scan follow-up with primary care doctor. At this time Patient will be treated for symptoms of fever with Motrin Tylenol. Advised Patient to use inhaler. Patient does meet criteria for BAM infusion and received this today. Advised on strict return parameters including worsening shortness of breath. - Lab Data Result diagrams: 06/17/20 06:11 06/17/20 06:11 Lab Results 06/17/20 06/17/20 06/17/20 Range/Units 06:03 06:11 06:11 WBC 6.5 (3.8-10.6) k/uL RBC 5.11 (4.30-5.90) m/uL Hgb 15.2 (13.0-17.5) gm/dL Hct 44.6 (39.0-53.0) % MCV 87.2 (80.0-100.0) fL MCH 29.7 (25.0-35.0) pg MCHC 34.0 (31.0-37.0) g/dL RDW 13.3 (11.5-15.5) % Plt Count 235 (150-450) k/uL MPV 7.3 Neutrophils % 70 % Lymphocytes % 22 % Monocytes % 6 % Eosinophils % 1 % Basophils % 0 % Neutrophils # 4.5 (1.3-7.7) k/uL Lymphocytes # 1.4 (1.0-4.8) k/uL Monocytes # 0.4 (0-1.0) k/uL Eosinophils # 0.1 (0-0.7) k/uL Basophils # 0.0 (0-0.2) k/uL PT (9.0-12.0) sec INR (<1.2) APTT (22.0-30.0) sec Sodium 127 L (137-145) mmol/L Potassium 4.4 (3.5-5.1) mmol/L Chloride 94 L (98-107) mmol/L Carbon Dioxide 26 (22-30) mmol/L Anion Gap 7 mmol/L BUN 18 (9-20) mg/dL Creatinine 0.75 (0.66-1.25) mg/dL Est GFR (CKD-EPI)AfAm >90 (>60 ml/min/1.73 sqM) Est GFR (CKD-EPI)NonAf >90 (>60 ml/min/1.73 sqM) Glucose 294 H (74-99) mg/dL POC Glucose (mg/dL) 310 H (75-99) mg/dL POC Glu [employer]n [employer] Repairer ID Sarah Steward Plasma Lactic Acid Mike (0.7-2.0) mmol/L Calcium 9.2 (8.4-10.2) mg/dL Magnesium 1.6 (1.6-2.3) mg/dL Lactate Dehydrogenase 489 (313-618) U/L C-Reactive Protein 24.7 H (<10.0) mg/L Coronavirus (PCR) (Not Detectd) 06/17/20 06/17/20 06/17/20 Range/Units 06:11 06:11 06:12 WBC (3.8-10.6) k/uL RBC (4.30-5.90) m/uL Hgb (13.0-17.5) gm/dL Hct (39.0-53.0) % MCV (80.0-100.0) fL MCH (25.0-35.0) pg MCHC (31.0-37.0) g/dL RDW (11.5-15.5) % Plt Count (150-450) k/uL MPV Neutrophils % % Lymphocytes % % Monocytes % % Eosinophils % % Basophils % % Neutrophils # (1.3-7.7) k/uL Lymphocytes # (1.0-4.8) k/uL Monocytes # (0-1.0) k/uL Eosinophils # (0-0.7) k/uL Basophils # (0-0.2) k/uL PT 9.4 (9.0-12.0) sec INR 0.9 (<1.2) APTT 22.2 (22.0-30.0) sec Sodium (137-145) mmol/L Potassium (3.5-5.1) mmol/L Chloride (98-107) mmol/L Carbon Dioxide (22-30) mmol/L Anion Gap mmol/L BUN (9-20) mg/dL Creatinine (0.66-1.25) mg/dL Est GFR (CKD-EPI)AfAm (>60 ml/min/1.73 sqM) Est GFR (CKD-EPI)NonAf (>60 ml/min/1.73 sqM) Glucose (74-99) mg/dL POC Glucose (mg/dL) (75-99) mg/dL POC Glu Kiln [employer] Repairer ID Plasma Lactic Acid Mike 1.0 (0.7-2.0) mmol/L Calcium (8.4-10.2) mg/dL Magnesium (1.6-2.3) mg/dL Lactate Dehydrogenase (313-618) U/L C-Reactive Protein (<10.0) mg/L Coronavirus (PCR) Detected A (Not Detectd) 06/17/20 06:28 EKG performed at 5:48 shows normal sinus rhythm right axis deviation. Abnormal EKG. Ventricular rate of 92 bpm. NM interval is 144 ms. QRS ration is 102 ms. QT QTc is 374/462 ms. - Radiology Data Radiology results: report reviewed 0.6 cm nodule in the periphery of the left lung base and uncertain etiology. CT imaging of the chest with contrast is advised to follow. Osteopenia. Mild hype raeration similar to previous study. Disposition Clinical Impression: COVID-19 Disposition: HOME SELF-CARE Condition: Good Instructions (If sedation given, give patient instructions): Coronavirus Disease 2019 (COVID-19) Additional Instructions: Patient recommended to purchase pulse oximeter and if you have low readings below 90% you can return to ED. Take motrin and tyelnol for fever and body aches every 4-6 hours. Patient should use inhaler and cough syrup. Return to ED if any alarming signs or symptoms occur. Prescriptions: Promethazine/Dextromethorphan [Phenergan DM Syrup] 5 ml PO TID #60 ml Azithromycin [Zithromax Z-pack (6 tabs)] 0 mg PO DIRECTED 5 Days #6 tab Is patient prescribed a controlled substance at d/c from ED?: No Referrals: Julian Carranza MD [Primary Care Provider] - 1-2 days Time of Disposition: 07:37
[2020-06-17 06:28] LABS: Basophils % (A) 0 %; Eosinophils # (A) 0.1 k/uL (0-0.7); Eosinophils % (A) 1 %; HCT 44.6 % (39.0-53.0); HGB 15.2 gm/dL (13.0-17.5); Lymphocytes # (A) 1.4 k/uL (1.0-4.8); Lymphocytes % (A) 22 %; MCH 29.7 pg (25.0-35.0); MCV 87.2 fL (80.0-100.0); Mean Platelet Volume 7.3; Monocytes # (A) 0.4 k/uL (0-1.0); Monocytes % (A) 6 %; Neutrophils # (A) 4.5 k/uL (1.3-7.7); Neutrophils % (A) 70 %; Platelet Count 235 k/uL (150-450); RBC 5.11 m/uL (4.30-5.90); RDW 13.3 % (11.5-15.5); WBC 6.5 k/uL (3.8-10.6)
--- NOTE | 2020-06-17 06:30 | XR ---
EXAM: XR Chest, 1 View CLINICAL HISTORY: Chest pain. TECHNIQUE: Frontal view of the chest. COMPARISON: 08/08/2019. FINDINGS: Lungs: A 0.6 cm peripheral nodule is noted at the left lung base. Pleural space: Unremarkable. No pneumothorax. Heart: Cardiomediastinal silhouette unremarkable. Mediastinum: See above. Bones/joints: Osteopenia. Other findings: Mild hypoaeration. IMPRESSION: 1. 0.6 cm nodule the periphery of the left lung base of uncertain etiology. 2. CT imaging of the chest without contrast is advised to follow. 3. Osteopenia. 4. Mild hypoaeration, similar to the previous study.
[2020-06-17 06:38] LABS: INR 0.9 (<1.2); Partial Thromboplastin Time 22.2 sec (22.0-30.0); Prothrombin Time 9.4 sec (9.0-12.0)
[2020-06-17 07:12] LABS: African American GFR (CKD) >90 (>60 ml/min/1.73 sqM); Anion Gap 7 mmol/L; Blood Urea Nitrogen 18 mg/dL (9-20); C Reactive Protein 24.7 mg/L (<10.0); Calcium 9.2 mg/dL (8.4-10.2); Carbon Dioxide 26 mmol/L (22-30); Chloride 94 mmol/L (98-107); Glucose 294 mg/dL (74-99); LDH 489 U/L (313-618); Magnesium 1.6 mg/dL (1.6-2.3); Non-African American GFR(CKD) >90 (>60 ml/min/1.73 sqM); Potassium 4.4 mmol/L (3.5-5.1); Sodium 127 mmol/L (137-145)
[2020-06-17] MEDS ORDERED: BAMLANIVIMAB (EUA) 700 MG, ETESEVIMAB (EUA) 1,400 MG in SODIUM CHLORIDE 0.9% 50 ML IVPB ONE (08:00)
[2020-06-17 10:08] VITALS: BP 133/80; PULSE 85; TEMP 100.3
== END 2020-06-17 10:10 | disposition home or self-care (01) ==
LOC: EC 05:37
DX: U07.1 COVID-19 (principal); E11.9 Type 2 diabetes mellitus without complications; I10 Essential (primary) hypertension; K21.9 Gastro-esophageal reflux disease without esophagitis; Z87.891 Personal history of nicotine dependence; Z87.442 Personal history of urinary calculi; Z79.4 Long term (current) use of insulin
CPT/HCPCS: 36415; 93005; 80048; 83605; 83615; 83735; 85025; 85610; 85730; 86140; 84145; 87635; 71045; 99285; 96360; Q0245

== ENCOUNTER 2020-07-05 05:54 | Day surgery (SDC) | payer BC ==
[2020-07-02 15:43] VITALS: BMI 36.0
--- NOTE | 2020-07-04 20:34 | HP ---
HISTORY AND PHYSICAL DATE OF SURGERY: 07/05/2020 Sven Chavez is a 54-year-old gentleman seen with progressive left shoulder pain. We discussed options for treatment. He elected to proceed with arthroscopy. Consent was obtained. PAST MEDICAL HISTORY: Insulin-dependent diabetes, hypertension, gastroesophageal reflux disease. PAST SURGICAL HISTORY: None. DAILY MEDICATIONS: Humalog, lisinopril, omeprazole, Xarelto. ALLERGIES: NONE REPORTED. SOCIAL HISTORY: He smokes occasional cigarettes. PHYSICAL EVALUATION OF THE LEFT SHOULDER: Flexion 60, abduction 40, external rotation 20 with pain and significant weakness. Tenderness along the anterolateral acromion and rotator cuff insertion site. Impingement is positive at 70. Cross-body adduction sign is positive. Drop-arm sign is positive. Distal neurovascular exam is intact. RADIOGRAPHS: Radiographs of the left shoulder revealed a type 2 acromion, evidence for acromioclavicular joint osteoarthritis. Left shoulder MRI revealed a tear of the subscapularis tendon, impingement and acromioclavicular joint osteoarthritis. IMPRESSION: 1. Left shoulder impingement with rotator cuff tear. 2. Left shoulder acromioclavicular joint osteoarthritis. 3. Hypertension. 4. Insulin-dependent diabetes. PLAN: Left shoulder arthroscopy with subacromial decompression, possible arthroscopic rotator cuff repair, Koko procedure and debridement. MMODL / IJN: [id number] /
[2020-07-05] MEDS ORDERED: LACTATED RINGERS 1,000 ML IV SCH (06:03)
[2020-07-05] MEDS ORDERED: DEXAMETHASONE SOD PHOSPHATE 4 MG/ML 1 ML VIAL IV ONE (06:03)
[2020-07-05] MEDS ORDERED: ONDANSETRON 4 MG/2 ML VIAL IVP ONE (06:03)
[2020-07-05] MEDS ORDERED: HYDROmorphone 0.5 MG/0.5 ML SYRINGE IVP PRN (06:03)
[2020-07-05] MEDS ORDERED: LIDOCAINE 1% (10MG/ML) FOR IV START INTRADERMA ONE (06:30)
[2020-07-05 07:01] LABS: Glucose,Whole Blood 417 mg/dL (75-99)
[2020-07-05] MEDS ORDERED: INSULIN ASPART (NovoLOG) 100 UNIT/ML VIAL SQ ONE (07:10)
[2020-07-05] MEDS ORDERED: MIDAZOLAM 2 MG/2 ML VIAL IV ONE (07:15)
[2020-07-05] MEDS ORDERED: SUCCINYLCHOLINE CHLORIDE 100 MG/5 ML SYR IV ONE (07:23)
[2020-07-05] MEDS ORDERED: PROPOFOL 10 MG/ML 20 ML VIAL IV ONE (07:23)
[2020-07-05] MEDS ORDERED: LIDOCAINE 1% INJ 10MG/ML (20 ML MDV) ONE (07:23)
[2020-07-05] MEDS ORDERED: GLYCOPYRROLATE 0.2 MG/ML 2 ML VIAL ONE (07:23)
[2020-07-05] MEDS ORDERED: fentaNYL (PF) 50 MCG/ML 2 ML AMP ONE (07:23)
[2020-07-05] MEDS ORDERED: NEOSTIGMINE 1 MG/ML 10 ML VIAL ONE (07:23)
[2020-07-05] MEDS ORDERED: ROPIVACAINE 5 MG/ML 30 ML VIAL ONE (07:23)
[2020-07-05] MEDS ORDERED: ROCURONIUM 10 MG/ML (5 ML VIAL) IV ONE (07:23)
[2020-07-05 07:27] LABS: Glucose,Whole Blood 392 mg/dL (75-99)
[2020-07-05 08:14] LABS: Glucose,Whole Blood 302 mg/dL (75-99)
[2020-07-05] MEDS ORDERED: LACTATED RINGERS 1,000 ML IV ONE (09:00)
--- NOTE | 2020-07-05 09:18 | P.OP ---
Date of Procedure: 07/05/20 Preoperative Diagnosis: Left shoulder impingement Postoperative Diagnosis: 1. Left shoulder rotator cuff tear 2. Left shoulder impingement 3. Left shoulder partial long head biceps tendon tear Procedure(s) Performed: 1. Left shoulder arthroscopic rotator cuff repair 2. Left shoulder arthroscopic subacromial decompression 3. Left shoulder arthroscopic biceps tenotomy Implants: 1Arthrex 4.75 swivel lock anchor Anesthesia: GETA, regional (Interscalene block) Surgeon: Enoc De La Rosa Paintings Conservator #1: Ja Fitzgerald Estimated Blood Loss (ml): 11 Pathology: none sent Condition: stable Disposition: PACU Indications for Procedure: 54-year-old patient seen with progressive left shoulder pain and weakness. After treatment options were discussed, he elected to proceed with arthroscopy. Operative Findings: See description of procedure Description of Procedure: Patient underwent an interscalene block by department of anesthesia. The patient was then taken to the operative suite. The patient underwent a general anesthetic by the department of anesthesia. The patient was placed into a lateral position and secured. There was appropriate padding of the bony promin ence. Left shoulder was then prepped and draped in normal sterile orthopedic fashion. We placed the extremity in 10 pounds of longitudinal traction. A posterior incision was now made for a posterior working portal site. The trocar and cannula were inserted into the glenohumeral joint. Arthroscopy was initiated. Spinal needle was now inserted anteriorly, to ascertain the anterior working portal site. An incision was now made in that area, a trocar was inserted followed by a probe. She'll tearing hyperemia long head biceps tendon. There was some superficial fraying of the superior labrum. There were mild grade 1 chondral malacia changes along the superior aspect of the glenoid fossa. The remaining labrum was probed and found to be stable. I performed an arthroscopic biceps tenotomy. I again probe the labrum and it was stable. Instruments now removed from the glenohumeral joint. Utilizing the posterior working portal site, the trocar and cannula were inserted into the subacromial space. Arthroscopy initiated. I made an incision 2 fingerbreadths lateral to the acromion. I introduced my trocar followed by my ArthroCare ablator. I now began ablating thick subacromial bursal tissue, which exposed the undersurface of the anterior acromion. There was diminished subacromial space. There was a very prominent anterior acromion. A motorized bur was introduced and a subacromial decompression was performed. I also excised some osteophytes off the inferior aspect of the distal clavicle. The AC joint was visualized and noted to be mild/moderate arthritis with good stability of th e joint. I turned my attention toward rotator cuff tendon. I probed the subscapularis area and found no significant full-thickness tear. It was some superficial fraying. I debrided that out with a motorized shaver. I again probed the area and was stable. I now probed the distal supraspinatus. Along its posterior margin there was a full-thickness perforation present. I debrided the margins getting down to stable tendon tissue. The defect measured 11.5 cm it was freely mobile over the footprint. I abraded the footprint with a motorized bur. With the assistance of Ja BAUM I passed 3 everted mattress sutures through good bites of rotator cuff tendon. I now punched a hole in the footprint for insertion of an anchor. I now passed all 6 limbs of suture through the eyelet of a 4.75 swivel lock anchor. I placed the eyelet into our pre-punch hole. I held in position while Ja BAUM tension all the suture limbs and deployed the anchor with good fixation noted. All residual suture limbs were now clipped. We had good compression of the tendon along the entire footprint. Instruments now removed from the portal sites. All portal sites were approximated with nylon suture. Sterile dressings were applied followed by a shoulder sling. Ja BAUM assisted in this complex case. The patient was awakened, transferred to a bed, and taken to recovery in stable condition.
[2020-07-05 09:23] LABS: Glucose,Whole Blood 254 mg/dL (75-99)
[2020-07-05 09:27] VITALS: TEMP 97.5
[2020-07-05 10:11] VITALS: BP 150/92
[2020-07-05 10:31] VITALS: PULSE 97; RESP 20
[2020-07-05 10:37] LABS: Glucose,Whole Blood 243 mg/dL (75-99)
[2020-07-05] MEDS ORDERED: HYDROcodone/APAP 7.5-325MG 1 EACH TAB ONE (10:39)
[2020-07-05] MEDS ORDERED: HYDROcodone/APAP 7.5-325MG 1 EACH TAB PO ONE (10:40)
--- NOTE | 2020-07-05 20:30 | P.ANPRN ---
Procedure Note - Anesthesia - Nerve Block Performed Left Interscalene Single Time Out Performed: Yes Date of Procedure: 07/05/20 Procedure Start Time: 07:14 Procedure Stop Time: 07:17 Location of Patient: PreOp Indication: Acute Post-Operative Pain, Requested by Surgeon Sedation Type: Sedate with meaningful contact maintained Preparation: Sterile Prep Position: Supine Needle Types: Pajunk Needle Gauge: 21 Ultrasound used to visualize needle placement: Yes Ultrasound used to observe medication spread: Yes Blood Aspirated: No Pain Paresthesia on Injection Noted: No Resistance on Injection: Normal Image Stored and Saved: Yes Events: Uneventful and Well Tolerated (ropi .5% 20cc)
== END 2020-07-05 11:15 | disposition home or self-care (01) ==
LOC: OR 05:54
PROVIDERS: ATTEND Orthopaedic Surgery
DX: M75.112 Incomplete rotator cuff tear or rupture of left shoulder, not specified as traumatic (principal); M25.812 Other specified joint disorders, left shoulder; S46.112A Strain of muscle, fascia and tendon of long head of biceps, left arm, initial encounter; E11.9 Type 2 diabetes mellitus without complications; I10 Essential (primary) hypertension; M19.012 Primary osteoarthritis, left shoulder; K21.9 Gastro-esophageal reflux disease without esophagitis; Z79.01 Long term (current) use of anticoagulants; Z79.4 Long term (current) use of insulin; Z79.899 Other long term (current) drug therapy; Z72.0 Tobacco use; Z88.8 Allergy status to other drugs, medicaments and biological substances; Z87.891 Personal history of nicotine dependence; X58.XXXA Exposure to other specified factors, initial encounter
CPT/HCPCS: 64415; 76942; 29827; 29828; 29826; C1713; J2250; J2710; J0690; J2405; J2001; J3010; J2795; J0330; J2704

== ENCOUNTER 2020-08-03 10:37 | Emergency (ER) | payer BC ==
[2020-08-03 10:41] VITALS: RESP 18; TEMP 97.6
[2020-08-03] MEDS ORDERED: FLUORESCEIN STRIPS 1 MG STRIP RIGHT EYE ONE (10:58)
[2020-08-03] MEDS ORDERED: PROPARACAINE 0.5% OPHTH DROPS 15 ML BTL RIGHT EYE STA (10:58)
[2020-08-03 11:48] VITALS: BP 168/104; PULSE 101
[2020-08-03] MEDS ORDERED: TOBRAMYCIN 0.3% OPHTH OINT 3.5 GM TUBE RIGHT EYE STA (11:52)
--- NOTE | 2020-08-03 11:54 | ED ---
General Adult HPI - General Chief complaint: Extremity Problem,Nontraumatic Stated complaint: L Leg Pain Time Seen by Provider: 08/03/20 10:58 Source: patient Mode of arrival: wheelchair Limitations: no limitations - History of Present Illness Initial comments: 54 year-old male patient presents to the emergency department for evaluation of right eye pain and redness. States that he feels like something is in the eye. Denies any known injury. Denies blurred or double vision. Also reporting left leg pain and tingling. States symptoms have been going on for the last 2-3 days. States he has been taking norco for leg pain. Denies any known injury to the leg. Denies any significant swelling. Denies history of DVT, recent long car ride, or travel. Denies fever or chills. Denies any rash. Denies any saddle anesthesia or loss of bowel or bladder control. Patient denies any recent rash, cough, shortness of breath, chest pain, abdominal pain, nausea, vomiting, diarrhea, constipation, back pain, dizziness, weakness, hematuria, dysuria, urinary urgency, urinary frequency, or any other complaints. - Related Data Home Medications Medication Instructions Recorded Confirmed lisinopriL [Zestril] 20 mg PO DAILY 08/09/19 08/03/20 Gabapentin 800 mg PO BID 01/20/20 08/03/20 Insulin Glargine,Hum.rec.anlog 35 unit SQ BID 01/20/20 08/03/20 [Lantus Solostar] Insulin Lispro [humaLOG Kwikpen] 15 - 20 unit SQ AC-TID 01/20/20 08/03/20 Tiotropium [place] [Spiriva] 1 cap INHALATION RT-DAILY PRN 01/20/20 08/03/20 Albuterol Inhaler [Ventolin Hfa 1 puff INHALATION RT-QID PRN 08/03/20 08/03/20 Inhaler] Indomethacin [Indocin] 50 mg PO TID PRN 08/03/20 08/03/20 Lidocaine 5% Patch [Lidoderm] 1 patch TOPICAL DAILY 08/03/20 08/03/20 Magnesium Oxide 400 mg PO DAILY 08/03/20 08/03/20 Potassium Gluconate 99 mg PO DAILY 08/03/20 08/03/20 Allergies Allergy/AdvReac Type Severity Reaction Status Date / Time hydrocodone [From [place]] AdvReac Heart Verified 08/03/20 11:22 burn, stomach pain metformin AdvReac Nausea & Verified 08/03/20 11:22 Vomiting & Diarrhea Uefuion-Afo-Tmq Reductase AdvReac liver Verified 08/03/20 11:22 Inhibitor problems Review of Systems ROS Statement: Those systems with pertinent positive or pertinent negative responses have been documented in the HPI. ROS Other: All systems not noted in ROS Statement are negative. Past Medical History Past Medical History: Diabetes Mellitus, GERD/Reflux, Hypertension Additional Past Medical History / Comment(s): occ. pain with swallowing, hiatal hernia, dry skin, hx kidney stones History of Any Multi-Drug Resistant Organisms: MRSA Date of last positivie culture/infection: 2019 MDRO Source:: hand Past Surgical History: Orthopedic Surgery Additional Past Surgical History / Comment(s): cystoscopy/stent in urethra, olga carpal tunnel, trigger finger left thumb, rt thumb surgery Past Anesthesia/Blood Transfusion Reactions: No Reported Reaction Additional Past Anesthesia/Blood Transfusion Reaction / Comment(s): dizziness Past Psychological History: No Psychological Hx Reported Smoking Status: Former smoker Past Alcohol Use History: None Reported Past Drug Use History: None Reported - Past Family History Mother Family Medical History: No Reported History General Exam Limitations: no limitations General appearance: alert, in no apparent distress, other (This is a well developed, well nourished male patient in no acute distress.) Eye exam: Present: PERRL, EOMI, conjunctival injection (Right-sided), other (Fluorescein stain with Wood's lamp examination was performed and did reveal corneal abrasion at 7:00. Negative José Manuel sign. No evidence for foreign body.). Absent: normal appearance, scleral icterus, periorbital swelling ENT exam: Present: normal exam, normal oropharynx, mucous membranes moist Respiratory exam: Present: normal lung sounds bilaterally. Absent: respiratory distress, wheezes, rales, rhonchi, stridor Cardiovascular Exam: Present: regular rate, normal rhythm, normal heart sounds. Absent: systolic murmur, diastolic murmur, rubs, gallop, clicks Extremities exam: Present: normal inspection, full ROM, normal capillary refill, other (Skin to the left leg is pink, warm, dry. Cap refills less than 3 seconds. No calf tenderness. Pedal and posttibial pulses are 2+. Full range of motion intact. Good strength.). Absent: tenderness, pedal edema, joint swelling, calf tenderness Neurological exam: Present: alert, oriented X3, CN II-XII intact Psychiatric exam: Present: normal affect, normal mood Skin exam: Present: warm, dry, intact, normal color. Absent: rash Course Vital Signs 08/03/20 08/03/20 10:38 11:41 Temperature 97.6 F Pulse Rate 106 H 101 H Respiratory 18 18 Rate Blood Pressure 175/105 168/104 O2 Sat by Pulse 98 96 Oximetry Medical Decision Making - Medical Decision Making 54-year-old male patient presents to the emergency department today for evaluation of right eye redness and discomfort and left leg pain and tingling. Physical examination did reveal corneal abrasion to the right side at 7:00. He is neurovascularly and neurologically intact the left leg. This we did discuss possibility of pinched nerve. He will be given muscle relaxers. He has indomethacin and [place] at home. He is instructed to follow-up with orthopedics as primary care physician for recheck in 1-2 days. Return parameters are discussed in detail. He verbalizes understanding and agrees with this plan. My attending is Dr. Gillette. Disposition Clinical Impression: Right corneal abrasion, Left leg paresthesias Disposition: HOME SELF-CARE Condition: Good Instructions (If sedation given, give patient instructions): Corneal Abrasion (ED), Paresthesia (ED) Additional Instructions: Follow up with your senior loss control specialist as soon as possible. Follow up with ophthalmology if symptoms aren't improved over the next 1-2 days. Return for any new, worsening, or concerning symptoms. Is patient prescribed a controlled substance at d/c from ED?: No Referrals: Julian Carranza MD [Primary Care Provider] - 1-2 days Reji Garcia MD [STAFF PHYSICIAN] - 1-2 days Time of Disposition: 11:54
[2020-08-03] MEDS ORDERED: CYCLOBENZAPRINE 10MG STARTER 3 TAB BTL PO STA (11:55)
== END 2020-08-03 12:17 | disposition home or self-care (01) ==
LOC: EC 10:37
DX: S05.01XA Injury of conjunctiva and corneal abrasion without foreign body, right eye, initial encounter (principal); R20.2 Paresthesia of skin; M79.605 Pain in left leg; E11.9 Type 2 diabetes mellitus without complications; I10 Essential (primary) hypertension; K21.9 Gastro-esophageal reflux disease without esophagitis; Z87.442 Personal history of urinary calculi; Z87.891 Personal history of nicotine dependence; Z79.4 Long term (current) use of insulin; Z79.899 Other long term (current) drug therapy; Z88.5 Allergy status to narcotic agent; X58.XXXA Exposure to other specified factors, initial encounter
CPT/HCPCS: 99283

== ENCOUNTER → 2020-08-29 | Outpatient (CLI) | payer BC ==
--- NOTE | 2020-08-29 15:08 | CT ---
EXAMINATION TYPE: CT chest wo con DATE OF EXAM: 08/29/2020 COMPARISON: None HISTORY: Lung nodule. CT DLP: 631 mGycm, Automated exposure control for dose reduction was used. CONTRAST: Performed injected with 0 mL of Isovue 300. TECHNIQUE: Axial images were obtained at 5 mm thick sections. Reconstructed images are reviewed on [facility] computer in the coronal plane. FINDINGS: Portion of the thyroid visualized is normal. No suspicious lung nodules or focal infiltrates are present. No suspicious abnormalities to account f or the suspected right basilar nodule. A nipple however appears somewhat higher on the diaphragm than on the comparison chest x-ray. Consider chest x-ray with nipple markers for confirmation. No enlarged mediastinal or hilar adenopathy is evident. The ascending aorta diameter at the level o f the main pulmonary artery is 3.3 cm. The main pulmonary artery diameter at the bifurcation is 3.2 cm. No significant coronary artery calcification is present. Limited CT sections are obtained through the upper abdomen. Abdomen is essentially unremarkable. Smal l hiatal hernia is not excluded. IMPRESSIONS: 1. Normal Chest CT. Suspicious abnormality to account for nodular density at the right lung base on [facility] chest x-ray is not evident. See above discussion
== END | disposition home or self-care (01) ==
LOC: RADCTMAIN 13:54
PROVIDERS: ATTEND Internal Medicine
DX: J98.4 Other disorders of lung (principal)
CPT/HCPCS: 71250

== ENCOUNTER 2020-09-13 10:17 | Inpatient (IN) | payer BC ==
[2020-09-13] MEDS ORDERED: LIDOCAINE 1%-EPI 1:100,000 20 ML VIAL SQ STA (10:41)
[2020-09-13] MEDS ORDERED: cefTRIAXone IN SWFI 1,000 MG/10 ML SYRINGE IVP STA (10:41)
--- NOTE | 2020-09-13 11:07 | ED ---
Extremity Problem HPI - General Chief complaint: Extremity Problem,Nontraumatic Stated complaint: Lt Arm Swelling Time Seen by Provider: 09/13/20 10:38 Source: patient Mode of arrival: ambulatory Limitations: no limitations - History of Present Illness Initial comments: 55-year-old male with history of diabetes presents to emergency department with a chief complaint of an abscess. Patient reports history of abscesses and cellulitis. Patient reports he developed an abscess on bilateral axillas and was treated with Bactrim. States he finished a course of Bactrim 2 days ago with no significant improvement symptoms. States the right axilla, had improved but the left appeared to increase in size. Patient reports now he has a very tender abscess in the left proximal upper extremities. He denies any discharge but does report overlying cellulitic skin changes. He does report fevers and chills since yesterday. Denies any nausea or vomiting. States he spoke with his primary care physician would present to come to the emergency department for further treatment and admission. Denies denies history of MRSA. - Related Data Home Medications Medication Instructions Recorded Confirmed lisinopriL [Zestril] 20 mg PO DAILY 08/09/19 09/13/20 Gabapentin 800 mg PO TID 01/20/20 09/13/20 Insulin Lispro [humaLOG Kwikpen] 10 unit SQ AC-TID 01/20/20 09/13/20 Tiotropium [place] [Spiriva] 1 cap INHALATION RT-DAILY PRN 01/20/20 09/13/20 Albuterol Inhaler [Ventolin Hfa 1 puff INHALATION RT-QID PRN 08/03/20 09/13/20 Inhaler] Indomethacin [Indocin] 50 mg PO TID PRN 08/03/20 09/13/20 Ibuprofen [Motrin] 800 mg PO Q8H PRN 09/13/20 09/13/20 Insulin Glargine,Hum.rec.anlog 50 unit SQ BID 09/13/20 09/13/20 [Basaglar Kwikpen U-100] Ketoconazole 2% Cream [Nizoral 2%] 1 applic TOPICAL BID PRN 09/13/20 09/13/20 Mupirocin 2% Oint [Bactroban 2% 1 applic TOPICAL TID 09/13/20 09/13/20 Oint] Omeprazole 20 mg PO BID 09/13/20 09/13/20 Rivaroxaban [Xarelto] 2.5 mg PO DAILY 09/13/20 09/13/20 Allergies Allergy/AdvReac Type Severity Reaction Status Date / Time hydrocodone [From [place]] AdvReac Heart Verified 09/13/20 12:29 burn, stomach pain metformin AdvReac Nausea & Verified 09/13/20 12:29 Vomiting & Diarrhea Hsurntz-Mta-Ocv Reductase AdvReac liver Verified 09/13/20 12:29 Inhibitor problems Review of Systems ROS Statement: Those systems with pertinent positive or pertinent negative responses have been documented in the HPI. ROS Other: All systems not noted in ROS Statement are negative. Past Medical History Past Medical History: Diabetes Mellitus, GERD/Reflux, Hypertension Additional Past Medical History / Comment(s): occ. pain with swallowing, hiatal hernia, dry skin, hx kidney stones History of Any Multi-Drug Resistant Organisms: MRSA Date of last positivie culture/infection: 2019 MDRO Source:: hand Past Surgical History: Orthopedic Surgery Additional Past Surgical History / Comment(s): cystoscopy/stent in urethra, olga carpal tunnel, trigger finger left thumb, rt thumb surgery Past Anesthesia/Blood Transfusion Reactions: No Reported Reaction Additional Past Anesthesia/Blood Transfusion Reaction / Comment(s): dizziness Past Psychological History: No Psychological Hx Reported Smoking Status: Former smoker Past Alcohol Use History: None Reported Past Drug Use History: None Reported - Past Family History Mother Family Medical History: No Reported History General Exam Limitations: no limitations General appearance: alert, in no apparent distress, obese Head exam: Present: atraumatic, normocephalic, normal inspection Eye exam: Present: normal appearance, PERRL, EOMI Pupils: Present: normal accommodation ENT exam: Present: normal exam, normal oropharynx, mucous membranes moist Neck exam: Present: normal inspection, full ROM. Absent: tenderness Respiratory exam: Present: normal lung sounds bilaterally. Absent: respiratory distress, wheezes, rales, rhonchi, stridor Cardiovascular Exam: Present: regular rate, normal rhythm, normal heart sounds. Absent: systolic murmur, diastolic murmur Extremities exam: Present: full ROM, tenderness (Tenderness at the abscess site), normal capillary refill. Absent: normal inspection (Large abscess noted on the left axilla measuring approximately 10*12 cm with overlying cellulitis. No discharge noted.), pedal edema, joint swelling, calf tenderness Back exam: Present: normal inspection, full ROM. Absent: tenderness Neurological exam: Present: alert, oriented X3 Psychiatric exam: Present: normal affect, normal mood Skin exam: Present: warm, dry, intact, normal color Course Vital Signs 09/13/20 09/13/20 09/13/20 10:29 10:39 11:00 Temperature 98.0 F 99.4 F Pulse Rate 110 H 98 Respiratory 16 18 Rate Blood Pressure 156/98 164/100 O2 Sat by Pulse 95 98 Oximetry 09/13/20 09/13/20 12:04 12:58 Temperature Pulse Rate 88 103 H Respiratory 20 22 Rate Blood Pressure 165/103 188/116 O2 Sat by Pulse 98 99 Oximetry Procedures - Incision & Drainage Consent Obtained: verbal consent Indication: abscess Site: upper extremity (left arm) Size (cm): 10 Anesthetic Used: lidocaine 1%, with epi Amount (mLs): 5 I&D Cleaning Method: Alcohol Wipe Sterile Field Used?: No Scalpel Used: #11 Needle Aspiration Performed?: No Irrigation Performed?: No I&D Drainage Obtained: Pus, Blood Culture Obtained?: Yes Complications: pain, bleeding Patient Tolerated Procedure: well, no complications Medical Decision Making - Medical Decision Making 55-year-old male with history of diabetes presents to emergency department with a chief complaint of an abscess. His ago examination, large abscess on the left upper arm. Incision and drainage performed that was able to get large amount of pus out. Patient was started on vancomycin. He was given 2 L of IV fluids. Lactic acid of 3.3. No leukocytosis. Patient has hyperglycemia with a blood glucose of 700. Acetone negative. No acidosis. No concern for DKA at this time. Serum osmolarity is 309. She was using immediately given 10 units of NovoLog a decreased to 540. Patient was given additional 8 units of regular insulin. Patient will be admitted for further medical management. This case discussed with Dr. Rogers. Admitting physician is Dr.mandava GAMING consult - Lab Data Result diagrams: 09/13/20 11:01 09/13/20 11:01 Lab Results 09/13/20 09/13/20 09/13/20 Range/Units 11:01 11:01 11:01 WBC 8.9 (3.8-10.6) k/uL RBC 4.98 (4.30-5.90) m/uL Hgb 14.6 (13.0-17.5) gm/dL Hct 43.8 (39.0-53.0) % MCV 88.0 (80.0-100.0) fL MCH 29.3 (25.0-35.0) pg MCHC 33.3 (31.0-37.0) g/dL RDW 13.8 (11.5-15.5) % Plt Count 361 (150-450) k/uL MPV 6.9 Neutrophils % 75 % Lymphocytes % 18 % Monocytes % 5 % Eosinophils % 1 % Basophils % 1 % Neutrophils # 6.7 (1.3-7.7) k/uL Lymphocytes # 1.6 (1.0-4.8) k/uL Monocytes # 0.4 (0-1.0) k/uL Eosinophils # 0.1 (0-0.7) k/uL Basophils # 0.1 (0-0.2) k/uL VBG pH (7.31-7.41) VBG pCO2 (37-51) mmHg VBG HCO3 (24-28) mmol/L Sodium 131 L (137-145) mmol/L Potassium 4.4 (3.5-5.1) mmol/L Chloride 97 L (98-107) mmol/L Carbon Dioxide 25 (22-30) mmol/L Anion Gap 9 mmol/L BUN 17 (9-20) mg/dL Creatinine 0.69 (0.66-1.25) mg/dL Est GFR (CKD-EPI)AfAm >90 (>60 ml/min/1.73 sqM) Est GFR (CKD-EPI)NonAf >90 (>60 ml/min/1.73 sqM) Glucose 707 H* (74-99) mg/dL POC Glucose (mg/dL) (75-99) mg/dL POC Glu Vending Machine Filler ID Osmolality (280-301) mosm/kg Plasma Lactic Acid Mike 3.3 H* (0.7-2.0) mmol/L Calcium 9.7 (8.4-10.2) mg/dL Total Bilirubin 0.2 (0.2-1.3) mg/dL AST 27 (17-59) U/L ALT 28 (4-49) U/L Alkaline Phosphatase 126 (38-126) U/L Total Protein 6.2 L (6.3-8.2) g/dL Albumin 3.9 (3.5-5.0) g/dL Urine Color Urine Appearance (Clear) Urine pH (5.0-8.0) Ur Specific [place] (1.001-1.035) Urine Protein (Negative) Urine Glucose (UA) (Negative) Urine Ketones (Negative) Urine Blood (Negative) Urine Nitrite (Negative) Urine Bilirubin (Negative) Urine Urobilinogen (<2.0) mg/dL Ur Leukocyte Esterase (Negative) Acetone, Qual (Negative) 09/13/20 09/13/20 09/13/20 Range/Units 12:02 12:02 12:02 WBC (3.8-10.6) k/uL RBC (4.30-5.90) m/uL Hgb (13.0-17.5) gm/dL Hct (39.0-53.0) % MCV (80.0-100.0) fL MCH (25.0-35.0) pg MCHC (31.0-37.0) g/dL RDW (11.5-15.5) % Plt Count (150-450) k/uL MPV Neutrophils % % Lymphocytes % % Monocytes % % Eosinophils % % Basophils % % Neutrophils # (1.3-7.7) k/uL Lymphocytes # (1.0-4.8) k/uL Monocytes # (0-1.0) k/uL Eosinophils # (0-0.7) k/uL Basophils # (0-0.2) k/uL VBG pH 7.41 (7.31-7.41) VBG pCO2 39 (37-51) mmHg VBG HCO3 24 (24-28) mmol/L Sodium (137-145) mmol/L Potassium (3.5-5.1) mmol/L Chloride (98-107) mmol/L Carbon Dioxide (22-30) mmol/L Anion Gap mmol/L BUN (9-20) mg/dL Creatinine (0.66-1.25) mg/dL Est GFR (CKD-EPI)AfAm (>60 ml/min/1.73 sqM) Est GFR (CKD-EPI)NonAf (>60 ml/min/1.73 sqM) Glucose (74-99) mg/dL POC Glucose (mg/dL) (75-99) mg/dL POC Glu Vending Machine Filler ID Osmolality 309 H (280-301) mosm/kg Plasma Lactic Acid Mike (0.7-2.0) mmol/L Calcium (8.4-10.2) mg/dL Total Bilirubin (0.2-1.3) mg/dL AST (17-59) U/L ALT (4-49) U/L Alkaline Phosphatase (38-126) U/L Total Protein (6.3-8.2) g/dL Albumin (3.5-5.0) g/dL Urine Color Colorless Urine Appearance Clear (Clear) Urine pH 6.0 (5.0-8.0) Ur Specific [place] 1.028 (1.001-1.035) Urine Protein Negative (Negative) Urine Glucose (UA) 4+ H (Negative) Urine Ketones Negative (Negative) Urine Blood Negative (Negative) Urine Nitrite Negative (Negative) Urine Bilirubin Negative (Negative) Urine Urobilinogen <2.0 (<2.0) mg/dL Ur Leukocyte Esterase Negative (Negative) Acetone, Qual Negative (Negative) 09/13/20 Range/Units 12:33 WBC (3.8-10.6) k/uL RBC (4.30-5.90) m/uL Hgb (13.0-17.5) gm/dL Hct (39.0-53.0) % MCV (80.0-100.0) fL MCH (25.0-35.0) pg MCHC (31.0-37.0) g/dL RDW (11.5-15.5) % Plt Count (150-450) k/uL MPV Neutrophils % % Lymphocytes % % Monocytes % % Eosinophils % % Basophils % % Neutrophils # (1.3-7.7) k/uL Lymphocytes # (1.0-4.8) k/uL Monocytes # (0-1.0) k/uL Eosinophils # (0-0.7) k/uL Basophils # (0-0.2) k/uL VBG pH (7.31-7.41) VBG pCO2 (37-51) mmHg VBG HCO3 (24-28) mmol/L Sodium (137-145) mmol/L Potassium (3.5-5.1) mmol/L Chloride (98-107) mmol/L Carbon Dioxide (22-30) mmol/L Anion Gap mmol/L BUN (9-20) mg/dL Creatinine (0.66-1.25) mg/dL Est GFR (CKD-EPI)AfAm (>60 ml/min/1.73 sqM) Est GFR (CKD-EPI)NonAf (>60 ml/min/1.73 sqM) Glucose (74-99) mg/dL POC Glucose (mg/dL) 526 H (75-99) mg/dL POC Glu Vending Machine Filler ID Misha Kincaid Osmolality (280-301) mosm/kg Plasma Lactic Acid Mike (0.7-2.0) mmol/L Calcium (8.4-10.2) mg/dL Total Bilirubin (0.2-1.3) mg/dL AST (17-59) U/L ALT (4-49) U/L Alkaline Phosphatase (38-126) U/L Total Protein (6.3-8.2) g/dL Albumin (3.5-5.0) g/dL Urine Color Urine Appearance (Clear) Urine pH (5.0-8.0) Ur Specific [place] (1.001-1.035) Urine Protein (Negative) Urine Glucose (UA) (Negative) Urine Ketones (Negative) Urine Blood (Negative) Urine Nitrite (Negative) Urine Bilirubin (Negative) Urine Urobilinogen (<2.0) mg/dL Ur Leukocyte Esterase (Negative) Acetone, Qual (Negative) Disposition Clinical Impression: Hyperglycemia, Failure of outpatient treatment, Abscess Disposition: ADMITTED IP TO THIS HOSP Condition: Fair Is patient prescribed a controlled substance at d/c from ED?: No Referrals: Julian Carranza MD [Primary Care Provider] - 1-2 days Time of Disposition: 13:12
[2020-09-13 11:16] LABS: Basophils # (A) 0.1 k/uL (0-0.2); Basophils % (A) 1 %; Eosinophils # (A) 0.1 k/uL (0-0.7); Eosinophils % (A) 1 %; HCT 43.8 % (39.0-53.0); HGB 14.6 gm/dL (13.0-17.5); Lymphocytes # (A) 1.6 k/uL (1.0-4.8); Lymphocytes % (A) 18 %; MCH 29.3 pg (25.0-35.0); MCHC 33.3 g/dL (31.0-37.0); Mean Platelet Volume 6.9; Monocytes # (A) 0.4 k/uL (0-1.0); Monocytes % (A) 5 %; Neutrophils # (A) 6.7 k/uL (1.3-7.7); Neutrophils % (A) 75 %; Platelet Count 361 k/uL (150-450); RBC 4.98 m/uL (4.30-5.90); RDW 13.8 % (11.5-15.5); WBC 8.9 k/uL (3.8-10.6)
[2020-09-13 11:28] LABS: ALT 28 U/L (4-49); AST 27 U/L (17-59); African American GFR (CKD) >90 (>60 ml/min/1.73 sqM); Albumin 3.9 g/dL (3.5-5.0); Alkaline Phosphatase 126 U/L (38-126); Anion Gap 9 mmol/L; Blood Urea Nitrogen 17 mg/dL (9-20); Calcium 9.7 mg/dL (8.4-10.2); Carbon Dioxide 25 mmol/L (22-30); Chloride 97 mmol/L (98-107); Non-African American GFR(CKD) >90 (>60 ml/min/1.73 sqM); Potassium 4.4 mmol/L (3.5-5.1); Sodium 131 mmol/L (137-145); Total Bilirubin 0.2 mg/dL (0.2-1.3); Total Protein 6.2 g/dL (6.3-8.2)
[2020-09-13 11:42] LABS: Glucose 707 mg/dL (74-99)
[2020-09-13] MEDS ORDERED: SODIUM CHLORIDE 0.9% 2,000 ML IV STA (11:46)
[2020-09-13] MEDS ORDERED: INSULIN ASPART (NovoLOG) 100 UNIT/ML VIAL SQ ONE (11:46)
[2020-09-13] MEDS ORDERED: SODIUM CHLORIDE 0.9% 1,000 ML IV STA (11:47)
[2020-09-13 12:12] LABS: VBG PH 7.41 (7.31-7.41)
[2020-09-13 12:14] LABS: Appearance,Urine Clear (Clear); Bilirubin,Urine Negative (Negative); Blood,Urine Negative (Negative); Color,Urine Colorless; Glucose,Urine (UA) 4+ (Negative); Ketones,Urine Negative (Negative); Leukocyte Esterase,Urine Negative (Negative); Nitrite,Urine Negative (Negative); Protein,Urine Negative (Negative); Specific Gravity,Urine 1.028 (1.001-1.035); Urobilinogen,Urine <2.0 mg/dL (<2.0)
[2020-09-13 12:36] LABS: Glucose,Whole Blood 526 mg/dL (75-99)
[2020-09-13] MEDS ORDERED: INSULIN REGULAR 100 UNIT/ML VIAL (IV) IV ONE (12:55)
[2020-09-13] MEDS ORDERED: NALOXONE 0.4 MG/ML 1 ML VIAL IV PRN ×2 (13:05→13:06)
[2020-09-13] MEDS ORDERED: ACETAMINOPHEN TAB 325 MG TAB PO PRN (13:06)
[2020-09-13] MEDS ORDERED: ALBUTEROL HFA INHALER INHALATION PRN (13:08)
[2020-09-13] MEDS ORDERED: IPRATROPIUM 0.5 MG/2.5 ML NEBU INHALATION PRN (13:08)
[2020-09-13] MEDS ORDERED: hydrALAZINE HCL 25 MG TAB PO PRN (13:11)
[2020-09-13] MEDS ORDERED: LACTATED RINGERS 1,000 ML IV ONE (13:12)
[2020-09-13 13:16] LABS: Glucose,Whole Blood 385 mg/dL (75-99)
[2020-09-13] MEDS: HYDROcodone/APAP 5-325MG 1 EACH TAB PO PRN (13:53)
[2020-09-13] MEDS: PANTOPRAZOLE 40 MG TABLET PO SCH (13:53)
[2020-09-13] MEDS: INSULIN DETEMIR (LEVEMIR) 100 UNIT/ML SYR SQ SCH ×2 (13:54→20:45)
[2020-09-13] MEDS: CLINDAMYCIN 600 MG in DEXTROSE 5% IN WATER 50 ML IVPB SCH ×2 (13:55)
[2020-09-13 13:57] LABS: Glucose,Whole Blood 233 mg/dL (75-99)
[2020-09-13] MEDS ORDERED: IPRATROPIUM-ALBUTEROL 3 ML NEB INHALATION PRN (14:05)
--- NOTE | 2020-09-13 14:06 | P.HPIM ---
History of Present Illness H&P Date: 09/13/20 Chief Complaint: Abscess, hyperglycemia 55-year-old man with a medical history of recurrent abscesses, COPD, type 2 diabetes with diabetic neuropathy, GERD, on chronic blood thinner for unknown reason presented for recurrent abscess. Patient says that he's had recurrence of these abscesses under both armpits for approximately one month. 30 days ago he was prescribed Bactrim, and had some resolution of symptoms, until 2 days ago when he discontinued Bactrim due to being completed with his course. In the last couple days, he noticed a rapidly increasing size of the abscesses under both armpits with exquisite tenderness and pain with movement. He also noticed some numbness/tingling in his extremities, flushing, sweats, but denies fevers, chills. He denies nausea, vomiting, chest pain, palpitations, syncope, presyncope, dyspnea, cough, abdominal pain, diarrhea, constipation, numbness/weakness. Notably, he was noted to be hyperglycemic to greater than 700 in the emergency room. I reviewed his insulin compliance with him, he reports to me that he does not take his medication as prescribed. The last time he took his long-acting insulin was the day before yesterday, and he does not regularly take his short- acting insulin due to not having any strips to check his sugar. In the emergency room, patient is afebrile, hemodynamically stable. Labs reviewed and demonstrated no white count, mild hyponatremia, elevated glucose to 707 with a serum osmolality of 309, Actiq acid of 3.3. Glucose improved with approximately 16 units of short acting insulin given while in the emergency room. Patient was also started on IV fluids. Review of Systems All Systems reviewed and pertinent positives and negatives noted in HPI, all other symptoms are negative Past Medical History Past Medical History: Diabetes Mellitus, GERD/Reflux, Hypertension Additional Past Medical History / Comment(s): occ. pain with swallowing, hiatal hernia, dry skin, hx kidney stones History of Any Multi-Drug Resistant Organisms: MRSA Date of last positivie culture/infection: 2019 MDRO Source:: hand Past Surgical History: Orthopedic Surgery Additional Past Surgical History / Comment(s): cystoscopy/stent in urethra, olga carpal tunnel, trigger finger left thumb, rt thumb surgery Past Anesthesia/Blood Transfusion Reactions: No Reported Reaction Additional Past Anesthesia/Blood Transfusion Reaction / Comment(s): dizziness Past Psychological History: No Psychological Hx Reported Smoking Status: Former smoker Past Alcohol Use History: None Reported Past Drug Use History: None Reported - Past Family History Mother Family Medical History: No Reported History Medications and Allergies Home Medications Medication Instructions Recorded Confirmed Type lisinopriL [Zestril] 20 mg PO DAILY 08/09/19 09/13/20 History Gabapentin 800 mg PO TID 01/20/20 09/13/20 History Insulin Lispro [humaLOG Kwikpen] 10 unit SQ AC-TID 01/20/20 09/13/20 History Tiotropium [place] [Spiriva] 1 cap INHALATION RT-DAILY PRN 01/20/20 09/13/20 History Albuterol Inhaler [Ventolin Hfa 1 puff INHALATION RT-QID PRN 08/03/20 09/13/20 History Inhaler] Indomethacin [Indocin] 50 mg PO TID PRN 08/03/20 09/13/20 History Ibuprofen [Motrin] 800 mg PO Q8H PRN 09/13/20 09/13/20 History Insulin Glargine,Hum.rec.anlog 50 unit SQ BID 09/13/20 09/13/20 History [Basaglar Kwikpen U-100] Ketoconazole 2% Cream [Nizoral 2%] 1 applic TOPICAL BID PRN 09/13/20 09/13/20 History Mupirocin 2% Oint [Bactroban 2% 1 applic TOPICAL TID 09/13/20 09/13/20 History Oint] Omeprazole 20 mg PO BID 09/13/20 09/13/20 History Rivaroxaban [Xarelto] 2.5 mg PO DAILY 09/13/20 09/13/20 History Allergies Allergy/AdvReac Type Severity Reaction Status Date / Time hydrocodone [From [place]] AdvReac Heart Verified 09/13/20 12:29 burn, stomach pain metformin AdvReac Nausea & Verified 09/13/20 12:29 Vomiting & Diarrhea Qcemvvw-Tea-Ouq Reductase AdvReac liver Verified 09/13/20 12:29 Inhibitor problems Physical Exam Osteopathic Statement: *. No significant issues noted on an osteopathic structural exam other than those noted in the History and Physical/Consult. Vitals: Vital Signs Temp Pulse Resp BP Pulse Ox 09/13/20 12:58 103 H 22 188/116 99 09/13/20 12:04 88 20 165/103 98 09/13/20 11:00 98 18 164/100 98 09/13/20 10:39 99.4 F 09/13/20 10:29 98.0 F 110 H 16 156/98 95 Intake and Output 09/12/20 09/13/20 09/13/20 22:59 06:59 14:59 Other: Weight 102.058 kg Gen: awake, alert HEENT: normocephalic, atraumatic, good hearing acuity, moist mucous membranes Resp: good air exchange, breathing comfortably with no accessory muscle use, clear to auscultation bilaterally without wheezes or crackles CVS: good distal perfusion x 4, regular rate and rhythm without murmurs GI: soft, NTTP, ND, appropriate bowel sounds : no SPT, no CVAT, gale catheter not present MSK: no pitting edema, no clubbing, 2 x 3 cm fluctuant mass palpated under the left axilla, small fluctuant masses palpated in the right axilla Neuro: non-focal, moving all extremities Psych: cooperative, euthymic mood Results CBC & Chem 7: 09/13/20 11:01 09/13/20 11:01 Labs: Abnormal Lab Results - Last 24 Hours (Table) 09/13/20 09/13/20 09/13/20 Range/Units 11:01 11:01 12:02 Sodium 131 L (137-145) mmol/L Chloride 97 L (98-107) mmol/L Glucose 707 H* (74-99) mg/dL POC Glucose (mg/dL) (75-99) mg/dL Osmolality (280-301) mosm/kg Plasma Lactic Acid Mike 3.3 H* (0.7-2.0) mmol/L Total Protein 6.2 L (6.3-8.2) g/dL Urine Glucose (UA) 4+ H (Negative) 09/13/20 09/13/20 09/13/20 Range/Units 12:02 12:33 13:10 Sodium (137-145) mmol/L Chloride (98-107) mmol/L Glucose (74-99) mg/dL POC Glucose (mg/dL) 526 H 385 H (75-99) mg/dL Osmolality 309 H (280-301) mosm/kg Plasma Lactic Acid Mike (0.7-2.0) mmol/L Total Protein (6.3-8.2) g/dL Urine Glucose (UA) (Negative) Assessment and Plan Assessment: Superficial cellulitis with recurrent abscess -Admit to observation -Clindamycin 600 mg every 8 hours -Follow up wound cultures -IV fluids -Surgery consult for drainage of abscesses -ID consulted Uncontrolled type 2 diabetes -Lactated Ringer's bolus followed by 150 mL per hour of normal saline -Q before meals/at bedtime Accu-Cheks -Continue long-acting insulin, short acting correctional -A1c in the morning Hypertension Hyperlipidemia Chronic blood thinner GERD without esophagitis COPD without exacerbation -Home medications reviewed and reconciled -xarelto was continued -Home insulin, gabapentin were continued -Lisinopril continued -PPI continued -Tiotropium continued, DuoNeb's when necessary added Patient is a full code DVT prophylaxis covered with Xarelto
[2020-09-13 15:03] LABS: Glucose,Whole Blood 208 mg/dL (75-99)
[2020-09-13] MEDS: SODIUM CHLORIDE 0.9% 1,000 ML IV SCH ×3 (15:12→20:46)
[2020-09-13] MEDS: GABAPENTIN 400 MG CAP PO SCH (16:02)
[2020-09-13 17:05] LABS: Glucose,Whole Blood 195 mg/dL (75-99)
[2020-09-13] MEDS: INSULIN ASPART (NovoLOG) 100 UNIT/ML VIAL SQ SCH ×2 (17:38)
[2020-09-13 20:43] LABS: Glucose,Whole Blood 156 mg/dL (75-99)
[2020-09-13] MEDS ORDERED: VANCOMYCIN IV PER PHARMACY 1 EACH MISC MISCELLANE PRN (23:08)
[2020-09-14] MEDS ORDERED: VANCOMYCIN 1,750 MG in SODIUM CHLORIDE 0.9% 500 ML 500 ML IVPB ONE ×2
[2020-09-14] MEDS: GABAPENTIN 400 MG CAP PO SCH ×4 (00:08→21:49)
[2020-09-14 00:43] LABS: Glucose,Whole Blood 184 mg/dL (75-99)
[2020-09-14] MEDS: CLINDAMYCIN 600 MG in DEXTROSE 5% IN WATER 50 ML IVPB SCH ×2 (03:46)
[2020-09-14] MEDS: SODIUM CHLORIDE 0.9% 1,000 ML IV SCH ×5 (03:49→16:16)
[2020-09-14 04:22] LABS: Glucose,Whole Blood 182 mg/dL (75-99)
--- NOTE | 2020-09-14 06:41 | CONS ---
CONSULTATION DATE OF SERVICE: 09/13/2020 REASON FOR CONSULTATION: Left axillary abscess. HISTORY OF PRESENT ILLNESS: The patient is a 55-year-old male with past medical history significant for recurrent skin and soft tissue infection, predominantly involving his axillary area. The patient presented to the ER for evaluation of pain and swelling to mostly the left maxillary area that has been progressively getting worse over the last few days. The patient denies having history of any trauma. Currently has been treated with long-term course of oral Bactrim DS for bilateral axillary area abscesses which the patient has recently completed about 2 days ago. The patient is complaining of pain and swelling to the left axillary area, getting worse over the last few days. The patient describes the pain to be more of a throbbing in nature, intensity about 8/10 with no radiation. The patient did have some chills on presentation to the hospital. No fever was recorded. Patient did have a normal white count and normal creatinine. The patient did have I&D of the left axillary abscess by the ER physician. The patient was started on clindamycin and admitted to the hospital. Infectious Disease was consulted for further management of antibiotic therapy. REVIEW OF SYSTEMS: Positive points have been mentioned in HPI. Rest of systems are negative. PAST MEDICAL HISTORY: Recurrent skin and soft tissue infection, diabetes mellitus, gastroesophageal reflux disease, hypertension. PAST SURGICAL HISTORY: Cystoscopy, stent in the urethra, bilateral carpal tunnel release, trigger finger release and right thumb surgery. SOCIAL HISTORY: Remote history of smoking. No drinking or drug use. FAMILY HISTORY: No pertinent findings noticed. ALLERGIES: HYDROCODONE, METFORMIN, STATINS. MEDICATIONS: The patient is currently on Tylenol, [place], Ventolin, DuoNeb, clindamycin, Neurontin, hydralazine, NovoLog, Levemir, Zestril, Narcan, Protonix, Xarelto. PHYSICAL EXAMINATION: VITAL SIGNS: Blood pressure is 144/99 with a pulse of 89, temperature 98, he is 97% on room air. GENERAL DESCRIPTION: The patient is a middle-aged male lying in bed in no distress. No tachypnea or accessory muscles of respiration use. HEENT: Examination shows no pallor or scleral icterus. Oral mucous membrane is dry. NECK: Trachea central, no thyromegaly. LUNGS: Unlabored breathing, clear to auscultation anteriorly. HEART: S1-S2, regular rate and rhythm. ABDOMEN: Soft, no tenderness. No guarding or rigidity. EXTREMITIES: No edema of the feet. SKIN: No rash or mass palpable. In the left axillary area, the patient did have a site of I&D that has been covered. No purulent drainage was noticed. NEUROLOGICAL: The patient is awake, alert and oriented times three. Mood and affect normal. LABS: Creatinine is 0.69. BUN of 12, hemoglobin is 14.3, white count 8.9. Local cultures currently pending. DIAGNOSTIC IMPRESSION: Patient with left axillary abscess in this patient who did have history of recurrent bilateral axillary area skin and soft tissue infection and recently completed a terminal clerk course of oral Bactrim DS with a history of MRSA. Likely presenting with an MRSA skin and soft tissue infection, status post I&D. PLAN: 1. Discontinue clindamycin. 2. Start the patient on vancomycin, Pharmacy to dose target of 15. 3. We will follow on clinical condition and culture to further adjust medication if needed. Thank you for this consultation. Will follow this patient along with you. MMODL / IJN: [id number] /
[2020-09-14 07:03] LABS: Glucose,Whole Blood 168 mg/dL (75-99)
[2020-09-14] MEDS: INSULIN ASPART (NovoLOG) 100 UNIT/ML VIAL SQ SCH ×6 (07:29→17:58)
[2020-09-14] MEDS: INSULIN DETEMIR (LEVEMIR) 100 UNIT/ML SYR SQ SCH ×2 (07:30→21:50)
[2020-09-14] MEDS: PANTOPRAZOLE 40 MG TABLET PO SCH (07:31)
[2020-09-14] MEDS: lisinopriL 20 MG TAB PO SCH (07:32)
[2020-09-14] MEDS: RIVAROXABAN 2.5 MG TABLET PO SCH (07:32)
[2020-09-14] MEDS: VANCOMYCIN 1,500 MG in SODIUM CHLORIDE 0.9% 250 ML IVPB SCH ×2 (08:53→16:16)
[2020-09-14] MEDS: HYDROcodone/APAP 5-325MG 1 EACH TAB PO PRN ×2 (09:00→21:49)
[2020-09-14 09:20] LABS: Basophils # (A) 0.1 k/uL (0-0.2); Basophils % (A) 1 %; Eosinophils # (A) 0.3 k/uL (0-0.7); Eosinophils % (A) 3 %; HCT 40.4 % (39.0-53.0); HGB 13.9 gm/dL (13.0-17.5); Lymphocytes # (A) 2.3 k/uL (1.0-4.8); Lymphocytes % (A) 28 %; MCH 29.5 pg (25.0-35.0); MCHC 34.3 g/dL (31.0-37.0); Mean Platelet Volume 6.9; Monocytes # (A) 0.4 k/uL (0-1.0); Monocytes % (A) 5 %; Neutrophils # (A) 5.2 k/uL (1.3-7.7); Neutrophils % (A) 63 %; Platelet Count 337 k/uL (150-450); RBC 4.69 m/uL (4.30-5.90); RDW 13.7 % (11.5-15.5); WBC 8.3 k/uL (3.8-10.6)
[2020-09-14 09:24] LABS: African American GFR (CKD) >90 (>60 ml/min/1.73 sqM); Anion Gap 6 mmol/L; Blood Urea Nitrogen 11 mg/dL (9-20); Calcium 9.4 mg/dL (8.4-10.2); Carbon Dioxide 26 mmol/L (22-30); Chloride 105 mmol/L (98-107); Glucose 167 mg/dL (74-99); Magnesium 1.7 mg/dL (1.6-2.3); Non-African American GFR(CKD) >90 (>60 ml/min/1.73 sqM); Potassium 4.5 mmol/L (3.5-5.1); Sodium 137 mmol/L (137-145)
[2020-09-14 11:53] LABS: Glucose,Whole Blood 105 mg/dL (75-99)
--- NOTE | 2020-09-14 12:12 | P.GSCN ---
History of Present Illness Consult date: 09/14/20 History of present illness: 55-year-old male presented to the emergency department with complaints of bilateral axillary swelling and drainage. He has been dealing with this issue for approximately 1 month. He has been on a regimen of Bactrim with some initial success, however recently his symptoms have worsened. The left-sided axillary abscess was drained by the emergency department on his arrival with minimal output. He has been started on IV antibiotics and states that he has had significant improvement in bilateral axillary induration. He was noted to have uncontrolled type 2 diabetes on his arrival with glucose greater than 700. This is being addressed by medicine team. Denies any fevers. Denies any chills, chest pain or shortness of breath. No evidence of leukocytosis at this time. Review of Systems All systems: negative Past Medical History Past Medical History: Diabetes Mellitus, GERD/Reflux, Hypertension Additional Past Medical History / Comment(s): occ. pain with swallowing, hiatal hernia, dry skin, hx kidney stones History of Any Multi-Drug Resistant Organisms: MRSA Year Discovered:: 2019 MDRO Source:: right hand Past Surgical History: Orthopedic Surgery Additional Past Surgical History / Comment(s): cystoscopy/stent in urethra, olga carpal tunnel, trigger finger left thumb, rt thumb surgery Past Anesthesia/Blood Transfusion Reactions: No Reported Reaction Additional Past Anesthesia/Blood Transfusion Reaction / Comm: dizziness Past Psychological History: No Psychological Hx Reported Smoking Status: Former smoker Past Alcohol Use History: None Reported Additional Past Alcohol Use History / Comment(s): smoked for 30 yrs Past Drug Use History: None Reported - Past Family History Mother Family Medical History: No Reported History Medications and Allergies Home Medications Medication Instructions Recorded Confirmed Type lisinopriL [Zestril] 20 mg PO DAILY 08/09/19 09/13/20 History Gabapentin 800 mg PO TID 01/20/20 09/13/20 History Insulin Lispro [humaLOG Kwikpen] 10 unit SQ AC-TID 01/20/20 09/13/20 History Tiotropium [place] [Spiriva] 1 cap INHALATION RT-DAILY PRN 01/20/20 09/13/20 History Albuterol Inhaler [Ventolin Hfa 1 puff INHALATION RT-QID PRN 08/03/20 09/13/20 History Inhaler] Indomethacin [Indocin] 50 mg PO TID PRN 08/03/20 09/13/20 History Ibuprofen [Motrin] 800 mg PO Q8H PRN 09/13/20 09/13/20 History Insulin Glargine,Hum.rec.anlog 50 unit SQ BID 09/13/20 09/13/20 History [Tami Clemens U-100] Ketoconazole 2% Cream [Nizoral 2%] 1 applic TOPICAL BID PRN 09/13/20 09/13/20 History Mupirocin 2% Oint [Bactroban 2% 1 applic TOPICAL TID 09/13/20 09/13/20 History Oint] Omeprazole 20 mg PO BID 09/13/20 09/13/20 History Rivaroxaban [Xarelto] 2.5 mg PO DAILY 09/13/20 09/13/20 History Allergies Allergy/AdvReac Type Severity Reaction Status Date / Time hydrocodone [From [place]] AdvReac Heart Verified 09/13/20 12:29 burn, stomach pain metformin AdvReac Nausea & Verified 09/13/20 12:29 Vomiting & Diarrhea Kuaihvc-Xbs-Yvl Reductase AdvReac liver Verified 09/13/20 12:29 Inhibitor problems Surgical - Exam Osteopathic Statement: *. No significant issues noted on an osteopathic structural exam other than those noted in the History and Physical/Consult. Vital Signs Temp Pulse Resp BP Pulse Ox 98.0 F 110 H 16 156/98 95 09/13/20 10:29 09/13/20 10:29 09/13/20 10:29 09/13/20 10:29 09/13/20 10:29 - General well developed, well nourished, no distress - Eyes PERRL, normal ocular movement - ENT no hearing loss - Neck trachea midline - Respiratory normal respiratory effort - Abdomen Abdomen: soft, non tender - Psychiatric oriented to time, oriented to person, oriented to place Bilateral axillary indurated areas. The right side is mostly resolved with no significant palpable induration or fluctuance. The left side is noted to have the previous I&D site from the emergency department with no active drainage and some surrounding induration. There is no palpable fluctuance. Results - Labs 09/14/20 07:07 09/14/20 07:07 Abnormal Lab Results - Last 24 Hours (Table) 09/13/20 09/13/20 09/13/20 Range/Units 12:02 12:02 12:33 Creatinine (0.66-1.25) mg/dL Glucose (74-99) mg/dL POC Glucose (mg/dL) 526 H (75-99) mg/dL Osmolality 309 H (280-301) mosm/kg Urine Glucose (UA) 4+ H (Negative) 09/13/20 09/13/20 09/13/20 Range/Units 13:10 13:56 15:01 Creatinine (0.66-1.25) mg/dL Glucose (74-99) mg/dL POC Glucose (mg/dL) 385 H 233 H 208 H (75-99) mg/dL Osmolality (280-301) mosm/kg Urine Glucose (UA) (Negative) 09/13/20 09/13/20 09/14/20 Range/Units 17:01 20:42 00:42 Creatinine (0.66-1.25) mg/dL Glucose (74-99) mg/dL POC Glucose (mg/dL) 195 H 156 H 184 H (75-99) mg/dL Osmolality (280-301) mosm/kg Urine Glucose (UA) (Negative) 09/14/20 09/14/20 09/14/20 Range/Units 04:20 07:02 07:07 Creatinine 0.59 L (0.66-1.25) mg/dL Glucose 167 H (74-99) mg/dL POC Glucose (mg/dL) 182 H 168 H (75-99) mg/dL Osmolality (280-301) mosm/kg Urine Glucose (UA) (Negative) 09/14/20 Range/Units 11:51 Creatinine (0.66-1.25) mg/dL Glucose (74-99) mg/dL POC Glucose (mg/dL) 105 H (75-99) mg/dL Osmolality (280-301) mosm/kg Urine Glucose (UA) (Negative) Microbiology - Last 24 Hours (Table) 09/13/20 12:03 Gram Stain - Preliminary Arm - Left Wound Culture - Preliminary Presumptive Staph aureus Diabetes panel 09/14/20 Range/Units 07:07 Sodium 137 (137-145) mmol/L Potassium 4.5 (3.5-5.1) mmol/L Chloride 105 (98-107) mmol/L Carbon Dioxide 26 (22-30) mmol/L BUN 11 (9-20) mg/dL Creatinine 0.59 L (0.66-1.25) mg/dL Glucose 167 H (74-99) mg/dL Calcium 9.4 (8.4-10.2) mg/dL Calcium panel 09/14/20 Range/Units 07:07 Calcium 9.4 (8.4-10.2) mg/dL Pituitary panel 09/14/20 Range/Units 07:07 Sodium 137 (137-145) mmol/L Potassium 4.5 (3.5-5.1) mmol/L Chloride 105 (98-107) mmol/L Carbon Dioxide 26 (22-30) mmol/L BUN 11 (9-20) mg/dL Creatinine 0.59 L (0.66-1.25) mg/dL Glucose 167 H (74-99) mg/dL Calcium 9.4 (8.4-10.2) mg/dL Adrenal panel 09/14/20 Range/Units 07:07 Sodium 137 (137-145) mmol/L Potassium 4.5 (3.5-5.1) mmol/L Chloride 105 (98-107) mmol/L Carbon Dioxide 26 (22-30) mmol/L BUN 11 (9-20) mg/dL Creatinine 0.59 L (0.66-1.25) mg/dL Glucose 167 H (74-99) mg/dL Calcium 9.4 (8.4-10.2) mg/dL Assessment and Plan Plan: 55-year-old male with uncontrolled diabetes mellitus and bilateral axillary abscess. There appears to be resolution of the right-sided axillary abscess. On exam, there is significant induration of the left axillary abscess with no palpable fluctuance. He has undergone I&D in the last 24 hours without any significant drainage. The patient states that there has been significant improvement after starting IV antibiotics. We'll continue to monitor for any further drainage. At this time, there does not appear to be any need for further drainage.
[2020-09-14 13:25] VITALS: BMI 36.3
--- NOTE | 2020-09-14 14:15 | P.PN ---
Subjective Progress Note Date: 09/14/20 No new complaints, induration of left and right axilla has improved. Sugars improved. Abx changed to vancomycin from clinda. WCx growing likely staph spp. Objective - Vital Signs Vital signs: Vital Signs Temp 97.8 F 09/14/20 07:47 Pulse 86 09/14/20 07:47 Resp 16 09/14/20 07:47 BP 148/93 09/14/20 07:47 Pulse Ox 99 09/14/20 07:47 Intake & Output 09/13/20 09/14/20 09/14/20 18:59 06:59 18:59 Intake Total 1670 236 Output Total 1 Balance 1669 236 Weight 102.058 kg 102.058 kg 102.058 kg Intake: Intake, IV Titration 950 Amount Sodium Chloride 0.9% 1, 450 000 ml @ 75 mls/hr IV . [id number] [facility] Rx#:[id number] Vancomycin 1,750 mg In 500 Sodium Chloride 0.9% 500 ml 500 ml @ 167 mls/hr IVPB ONCE ONE Rx#: [id number] Oral 720 236 Output: Urine 1 Other: Voiding Method Urinal - Exam Gen: awake, alert HEENT: normocephalic, atraumatic, good hearing acuity, moist mucous membranes Resp: good air exchange, breathing comfortably with no accessory muscle use, clear to auscultation bilaterally without wheezes or crackles CVS: good distal perfusion x 4, regular rate and rhythm without murmurs GI: soft, NTTP, ND, appropriate bowel sounds : no SPT, no CVAT, gale catheter not present MSK: no pitting edema, no clubbing, 2 x 3 cm fluctuant mass palpated under the left axilla, small fluctuant masses palpated in the right axilla Neuro: non-focal, moving all extremities Psych: cooperative, euthymic mood - Labs CBC & Chem 7: 09/14/20 07:07 09/14/20 07:07 Labs: Abnormal Lab Results - Last 24 Hours (Table) 09/13/20 09/13/20 09/13/20 Range/Units 15:01 17:01 20:42 Creatinine (0.66-1.25) mg/dL Glucose (74-99) mg/dL POC Glucose (mg/dL) 208 H 195 H 156 H (75-99) mg/dL 09/14/20 09/14/20 09/14/20 Range/Units 00:42 04:20 07:02 Creatinine (0.66-1.25) mg/dL Glucose (74-99) mg/dL POC Glucose (mg/dL) 184 H 182 H 168 H (75-99) mg/dL 09/14/20 09/14/20 Range/Units 07:07 11:51 Creatinine 0.59 L (0.66-1.25) mg/dL Glucose 167 H (74-99) mg/dL POC Glucose (mg/dL) 105 H (75-99) mg/dL Microbiology - Last 24 Hours (Table) 09/13/20 11:01 Blood Culture - Preliminary Blood No Growth after 24 hours 09/13/20 11:01 Blood Culture - Preliminary Blood No Growth after 24 hours 09/13/20 12:03 Gram Stain - Preliminary Arm - Left Wound Culture - Preliminary Presumptive Staph aureus Assessment and Plan Assessment: Superficial cellulitis with recurrent abscess -Admit to observation -Clindamycin 600 mg every 8 hours --> vancomycin with goal trough of 15 -Follow up wound cultures = GPCs, likely staph spp -IV fluids -Surgery consult for drainage of abscesses -ID consulted Uncontrolled type 2 diabetes -Lactated Ringer's bolus followed by 150 mL per hour of normal saline -Q before meals/at bedtime Accu-Cheks -Continue long-acting insulin, short acting correctional -A1c in the morning Hypertension Hyperlipidemia Chronic blood thinner GERD without esophagitis COPD without exacerbation -Home medications reviewed and reconciled -xarelto was continued -Home insulin, gabapentin were continued -Lisinopril continued -PPI continued -Tiotropium continued, DuoNeb's when necessary added Patient is a full code DVT prophylaxis covered with Xarelto
[2020-09-14 16:50] LABS: Glucose,Whole Blood 64 mg/dL (75-99)
[2020-09-14 17:20] LABS: Hemoglobin A1C 13.8 % (4.0-6.0)
[2020-09-14 17:24] LABS: Glucose,Whole Blood 89 mg/dL (75-99)
--- NOTE | 2020-09-14 17:37 | PN ---
PROGRESS NOTE DATE OF SERVICE: 09/14/2020. REASON FOR FOLLOWUP: Left axillary abscess. INTERVAL HISTORY: Patient is afebrile. The patient is complaining of more pain to the left basilar area. The patient denies having any chest pain, shortness of breath or cough. No nausea, vomiting. No abdominal pain or diarrhea. PHYSICAL EXAMINATION: Blood pressure 147/81 with a pulse of 83, temperature 98.6, he is 98% on room air. DESCRIPTION: The patient is a middle-aged male lying in bed, in no distress. RESPIRATORY SYSTEM: Unlabored breathing, clear to auscultation anteriorly. HEART: S1, S2. Regular rate and rhythm. EXTREMITIES: Left ankle is currently dressed. No obvious drainage on the dressing. LABS: Hemoglobin 13.1, white count 8.2, BUN of 11, creatinine 0.59. Culture showing Staph aureus. Blood culture has been negative so far. DIAGNOSTIC IMPRESSION AND PLAN: 1. Patient with left axillary abscess status post drainage. Cultures are currently pending. Previous history of MRSA infection. 2. Outpatient oral Bactrim, is continuing with the vancomycin while waiting for the culture to finalize and monitor clinical course closely. MMODL / IJN: [id number] /
[2020-09-14 21:31] LABS: Glucose,Whole Blood 142 mg/dL (75-99)
[2020-09-15] MEDS: VANCOMYCIN 1,500 MG in SODIUM CHLORIDE 0.9% 250 ML IVPB SCH ×3 (00:13→15:28)
[2020-09-15] MEDS: SODIUM CHLORIDE 0.9% 1,000 ML IV SCH ×6 (00:14→22:45)
[2020-09-15 07:08] LABS: Glucose,Whole Blood 289 mg/dL (75-99)
[2020-09-15] MEDS: INSULIN DETEMIR (LEVEMIR) 100 UNIT/ML SYR SQ SCH ×2 (07:23→21:12)
[2020-09-15] MEDS: GABAPENTIN 400 MG CAP PO SCH ×3 (07:23→21:13)
[2020-09-15] MEDS: lisinopriL 20 MG TAB PO SCH (07:23)
[2020-09-15] MEDS: PANTOPRAZOLE 40 MG TABLET PO SCH (07:23)
[2020-09-15] MEDS: INSULIN ASPART (NovoLOG) 100 UNIT/ML VIAL SQ SCH ×3 (07:23→16:45)
[2020-09-15] MEDS: RIVAROXABAN 2.5 MG TABLET PO SCH (07:24)
[2020-09-15] MEDS: HYDROcodone/APAP 5-325MG 1 EACH TAB PO PRN ×2 (08:37→15:34)
[2020-09-15] MEDS: ALPRAZolam 0.25 MG TAB PO PRN (10:03)
--- NOTE | 2020-09-15 10:50 | P.PN ---
Subjective Progress Note Date: 09/15/20 Patient seen and examined at bedside. Denies any significant tenderness of left axillary region. Area is softer and somewhat improved. Objective - Vital Signs Vital signs: Vital Signs Temp 98.2 F 09/15/20 07:56 Pulse 84 09/15/20 07:56 Resp 18 09/15/20 07:56 BP 142/87 09/15/20 07:56 Pulse Ox 98 09/15/20 07:56 Intake & Output 09/14/20 09/15/20 09/15/20 18:59 06:59 18:59 Intake Total 708 Balance 708 Weight 102.058 kg Intake: Oral 708 Other: # Voids 1 1 - Constitutional General appearance: Present: cooperative - Integumentary Integumentary Comment(s): Left axillary abscess incision and drainage site with some mild serosanguineous drainage, help mobile induration somewhat improved from yesterday's exam, no palpable fluctuance, improved erythema - Labs CBC & Chem 7: 09/14/20 07:07 09/14/20 07:07 Labs: Abnormal Lab Results - Last 24 Hours (Table) 09/14/20 09/14/20 09/14/20 Range/Units 07:07 11:51 16:49 POC Glucose (mg/dL) 105 H 64 L (75-99) mg/dL Hemoglobin A1c 13.8 H (4.0-6.0) % 09/14/20 09/15/20 Range/Units 21:30 07:06 POC Glucose (mg/dL) 142 H 289 H (75-99) mg/dL Hemoglobin A1c (4.0-6.0) % Microbiology - Last 24 Hours (Table) 09/13/20 11:01 Blood Culture - Preliminary Blood No Growth after 24 hours 09/13/20 11:01 Blood Culture - Preliminary Blood No Growth after 24 hours 09/13/20 12:03 Gram Stain - Preliminary Arm - Left Wound Culture - Preliminary Presumptive Staph aureus Assessment and Plan Plan: 55-year-old male with left axillary abscess status post I and D by emergency department. Appears to be improving with antibiotic treatment. Continue g lycemic control. Currently, no plan for any further drainage, however we will continue to monitor for any requirement of further drainage.
[2020-09-15 11:30] LABS: Glucose,Whole Blood 198 mg/dL (75-99)
--- NOTE | 2020-09-15 13:28 | P.PN ---
Subjective Progress Note Date: 09/15/20 No new complaints. Pt is improving on abx. Objective - Vital Signs Vital signs: Vital Signs Temp 98.2 F 09/15/20 07:56 Pulse 84 09/15/20 07:56 Resp 18 09/15/20 07:56 BP 142/87 09/15/20 07:56 Pulse Ox 98 09/15/20 07:56 Intake & Output 09/14/20 09/15/20 09/15/20 18:59 06:59 18:59 Intake Total 708 Balance 708 Weight 102.058 kg Intake: Oral 708 Other: # Voids 1 1 - Exam Gen: awake, alert HEENT: normocephalic, atraumatic, good hearing acuity, moist mucous membranes Resp: good air exchange, breathing comfortably with no accessory muscle use, clear to auscultation bilaterally without wheezes or crackles CVS: good distal perfusion x 4, regular rate and rhythm without murmurs GI: soft, NTTP, ND, appropriate bowel sounds : no SPT, no CVAT, gale catheter not present MSK: no pitting edema, no clubbing, 2 x 3 cm fluctuant mass palpated under the left axilla, small fluctuant masses palpated in the right axilla Neuro: non-focal, moving all extremities Psych: cooperative, euthymic mood - Labs CBC & Chem 7: 09/14/20 07:07 09/14/20 07:07 Labs: Abnormal Lab Results - Last 24 Hours (Table) 09/14/20 09/14/20 09/14/20 Range/Units 07:07 16:49 21:30 POC Glucose (mg/dL) 64 L 142 H (75-99) mg/dL Hemoglobin A1c 13.8 H (4.0-6.0) % 09/15/20 09/15/20 Range/Units 07:06 11:28 POC Glucose (mg/dL) 289 H 198 H (75-99) mg/dL Hemoglobin A1c (4.0-6.0) % Microbiology - Last 24 Hours (Table) 09/13/20 11:01 Blood Culture - Preliminary Blood No Growth after 48 hours 09/13/20 11:01 Blood Culture - Preliminary Blood No Growth after 48 hours 09/13/20 12:03 Gram Stain - Preliminary Arm - Left Wound Culture - Preliminary Presumptive Staph aureus Assessment and Plan Assessment: Superficial cellulitis with recurrent abscess -Admit to observation -Clindamycin 600 mg every 8 hours --> vancomycin with goal trough of 15 -Follow up wound cultures = GPCs, likely staph spp -IV fluids -Surgery consult for drainage of abscesses -ID consulted Uncontrolled type 2 diabetes -Lactated Ringer's bolus followed by 150 mL per hour of normal saline -Q before meals/at bedtime Accu-Cheks -Continue long-acting insulin, short acting correctional -A1c in the morning Hypertension Hyperlipidemia Chronic blood thinner GERD without esophagitis COPD without exacerbation -Home medications reviewed and reconciled -xarelto was continued -Home insulin, gabapentin were continued -Lisinopril continued -PPI continued -Tiotropium continued, DuoNeb's when necessary added Patient is a full code DVT prophylaxis covered with Xarelto
[2020-09-15] MEDS ORDERED: VANCOMYCIN TROUGH DUE 1 EACH MISC MISCELLANE ONE (15:00)
--- NOTE | 2020-09-15 16:20 | PN ---
PROGRESS NOTE DATE OF SERVICE: 09/15/2020 REASON FOR FOLLOWUP: Left axillary abscess. INTERVAL HISTORY: The patient is afebrile. The patient is breathing comfortably . Overall, pain and discomfort to the left leg currently has decreased. Denies any chest pain, shortness of breath. No abdominal pain, no diarrhea. PHYSICAL EXAMINATION: Blood pressure 142/87, pulse of 84, temperature 98.2. He is 98% on room air. General description is a middle-aged male lying in bed, in no distress. Respiratory system: Unlabored breathing, clear to auscultation anteriorly. Heart S1, S2. Regular. Abdomen: Soft, no tenderness. Left axillary swelling, redness decreased. LABS: Wound culture with Staph aureus. Sensitivities pending. DIAGNOSTIC IMPRESSION AND PLAN: Patient with a left axillary abscess, Staph aureus, sensitivities pending. Patient is covered with vancomycin. We will wait for the culture to finalize to determine discharge antibiotics and continue supportive care. MMODL / IJN: [id number] /
[2020-09-15 16:45] LABS: Glucose,Whole Blood 108 mg/dL (75-99)
[2020-09-15 20:27] LABS: Glucose,Whole Blood 168 mg/dL (75-99)
[2020-09-16] MEDS: SODIUM CHLORIDE 0.9% 1,000 ML IV SCH ×3 (01:34→10:05)
[2020-09-16] MEDS: HYDROcodone/APAP 5-325MG 1 EACH TAB PO PRN ×2 (02:16→07:20)
[2020-09-16 02:32] VITALS: RESP 16
[2020-09-16] MEDS: ALPRAZolam 0.25 MG TAB PO PRN ×2 (03:10→11:41)
[2020-09-16 06:57] LABS: Glucose,Whole Blood 249 mg/dL (75-99)
[2020-09-16 07:03] LABS: African American GFR (CKD) >90 (>60 ml/min/1.73 sqM); Non-African American GFR(CKD) >90 (>60 ml/min/1.73 sqM)
[2020-09-16] MEDS: PANTOPRAZOLE 40 MG TABLET PO SCH (07:20)
[2020-09-16] MEDS: lisinopriL 20 MG TAB PO SCH (07:20)
[2020-09-16] MEDS: INSULIN ASPART (NovoLOG) 100 UNIT/ML VIAL SQ SCH ×2 (07:20→11:41)
[2020-09-16] MEDS: INSULIN DETEMIR (LEVEMIR) 100 UNIT/ML SYR SQ SCH (07:20)
[2020-09-16] MEDS: RIVAROXABAN 2.5 MG TABLET PO SCH (07:20)
[2020-09-16] MEDS: GABAPENTIN 400 MG CAP PO SCH (07:21)
[2020-09-16 07:39] VITALS: BP 137/80; PULSE 82; TEMP 98.1
--- NOTE | 2020-09-16 10:35 | P.PN ---
Subjective Progress Note Date: 09/16/20 Patient seen and examined at bedside. No acute events. No significant changes. Objective - Vital Signs Vital signs: Vital Signs Temp 98.1 F 09/16/20 07:38 Pulse 82 09/16/20 07:38 Resp 16 09/16/20 07:38 BP 137/80 09/16/20 07:38 Pulse Ox 99 09/16/20 07:38 Intake & Output 09/15/20 09/16/20 09/16/20 18:59 06:59 18:59 Intake Total 250 Output Total 1600 Balance -1600 250 Intake: Oral 250 Output: Urine 1600 Other: # Voids 3 2 - Constitutional General appearance: Present: cooperative - Integumentary Integumentary Comment(s): Unchanged induration of left axilla, mild serous drainage, no significant erythema, not significantly tender - Labs CBC & Chem 7: 09/14/20 07:07 09/16/20 06:19 Labs: Abnormal Lab Results - Last 24 Hours (Table) 09/15/20 09/15/20 09/15/20 Range/Units 11:28 16:43 20:26 Creatinine (0.66-1.25) mg/dL POC Glucose (mg/dL) 198 H 108 H 168 H (75-99) mg/dL 09/16/20 09/16/20 Range/Units 06:19 06:51 Creatinine 0.62 L (0.66-1.25) mg/dL POC Glucose (mg/dL) 249 H (75-99) mg/dL Microbiology - Last 24 Hours (Table) 09/13/20 12:03 Gram Stain - Final Arm - Left Wound Culture - Final Staphylococcus aureus 09/13/20 11:01 Blood Culture - Preliminary Blood No Growth after 48 hours 09/13/20 11:01 Blood Culture - Preliminary Blood No Growth after 48 hours Assessment and Plan Plan: 55-year-old male status post I&D of left axillary abscess. At this point, induration remains. No significant tenderness. Mild drainage continues. No palpable fluctuance for further drainage at this point. Please call for any reevaluation that may be required.
[2020-09-16 11:36] LABS: Glucose,Whole Blood 162 mg/dL (75-99)
--- NOTE | 2020-09-16 14:24 | P.DS ---
Providers Date of admission: 09/13/20 13:18 Expected date of discharge: 09/16/20 Attending physician: Shaila Baron MD Consults: 09/13/20 13:08 Consult Physician Stat Consulting Provider: Hu Mendoza Consult Reason/Comments: Failure outpatient treatment, abscess Do you want consulting provider notified?: Yes 09/13/20 14:05 Consult Physician Routine Consulting Provider: Akil Machado Consult Reason/Comments: axillary abscesses Do you want consulting provider notified?: Yes Primary care physician: Julian Carranza MD Hospital Course: Superficial cellulitis with recurrent abscess -Admitted to observation. Had I/D of left axillary abscess in the ED. Surgery consulted for remaining abscesses, but determined no further need for ID. S tarted initially on Clindamycin 600 mg every 8 hours, then switched to vancomycin with goal trough of 15 by ID. Wound cultures = GPCs, MSSA. Switched to cephalexin for additional 10 days on discharge. Uncontrolled type 2 diabetes -Lactated Ringer's bolus followed by 150 mL per hour of normal saline. Restarted home insulin. Ordered diabetes supplies for patient on discharge. Will require f/u with PCP for further titration. Hypertension Hyperlipidemia Chronic blood thinner GERD without esophagitis COPD without exacerbation -Discharge med rec: -xarelto was continued -Home insulin, gabapentin were continued -Lisinopril continued -PPI continued -Tiotropium continued, DuoNeb's when necessary added I spent 38 minutes coordinating this complex discharge. Assessment: Gen: awake, alert HEENT: normocephalic, atraumatic, good hearing acuity, moist mucous membranes Resp: good air exchange, breathing comfortably with no accessory muscle use, clear to auscultation bilaterally without wheezes or crackles CVS: good distal perfusion x 4, regular rate and rhythm without murmurs GI: soft, NTTP, ND, appropriate bowel sounds : no SPT, no CVAT, gale catheter not present MSK: no pitting edema, no clubbing, 2 x 3 cm fluctuant mass palpated under the left axilla, small fluctuant masses palpated in the right axilla Neuro: non-focal, moving all extremities Psych: cooperative, euthymic mood Patient Condition at Discharge: Good Plan - Discharge Summary Discharge Rx Participant: Yes New Discharge Prescriptions: New Cephalexin [Keflex] 500 mg PO Q6HR 10 Days #40 cap Continue lisinopriL [Zestril] 20 mg PO DAILY Gabapentin 800 mg PO TID Tiotropium [place] [Spiriva] 1 cap INHALATION RT-DAILY PRN PRN Reason: Shortness Of Breath Insulin Lispro [humaLOG Kwikpen] 10 unit SQ AC-TID Rivaroxaban [Xarelto] 2.5 mg PO DAILY Mupirocin 2% Oint [Bactroban 2% Oint] 1 applic TOPICAL TID Albuterol Inhaler [Ventolin Hfa Inhaler] 1 puff INHALATION RT-QID PRN PRN Reason: Shortness Of Breath Indomethacin [Indocin] 50 mg PO TID PRN PRN Reason: Pain Ketoconazole 2% Cream [Nizoral 2%] 1 applic TOPICAL BID PRN PRN Reason: Rash Ibuprofen [Motrin] 800 mg PO Q8H PRN PRN Reason: Pain Insulin Glargine,Hum.rec.anlog [Basaglar Kwikpen U-100] 50 unit SQ BID Omeprazole 20 mg PO BID Discharge Medication List lisinopriL [Zestril] 20 mg PO DAILY 08/09/19 [History] Gabapentin 800 mg PO TID 01/20/20 [History] Insulin Lispro [humaLOG Kwikpen] 10 unit SQ AC-TID 01/20/20 [History] Tiotropium [place] [Spiriva] 1 cap INHALATION RT-DAILY PRN 01/20/20 [History] Albuterol Inhaler [Ventolin Hfa Inhaler] 1 puff INHALATION RT-QID PRN 08/03/20 [History] Indomethacin [Indocin] 50 mg PO TID PRN 08/03/20 [History] Ibuprofen [Motrin] 800 mg PO Q8H PRN 09/13/20 [History] Insulin Glargine,Hum.rec.anlog [Basaglar Kwikpen U-100] 50 unit SQ BID 09/13/20 [History] Ketoconazole 2% Cream [Nizoral 2%] 1 applic TOPICAL BID PRN 09/13/20 [History] Mupirocin 2% Oint [Bactroban 2% Oint] 1 applic TOPICAL TID 09/13/20 [History] Omeprazole 20 mg PO BID 09/13/20 [History] Rivaroxaban [Xarelto] 2.5 mg PO DAILY 09/13/20 [History] Cephalexin [Keflex] 500 mg PO Q6HR 10 Days #40 cap 09/16/20 [Rx] Follow up Appointment(s)/Referral(s): Julian Carranza MD [Primary Care Provider] - 1-2 days Hu Mendoza MD [STAFF PHYSICIAN] - 1 Week Patient Instructions/Handouts: Abscess (GEN) Discharge Disposition: HOME SELF-CARE
[2020-09-16] MEDS ORDERED: INSULIN DETEMIR (LEVEMIR) 100 UNIT/ML SYR SQ ONE (15:00)
--- NOTE | 2020-09-16 15:13 | PN ---
PROGRESS NOTE DATE OF SERVICE: 09/16/2020 REASON FOR CONSULTATION: Left axillary abscess MSSA. INTERVAL HISTORY: Patient was seen on rounds earlier this afternoon. The patient has been afebrile. The patient is breathing better. Denies any chest pain, shortness of breath or cough. No abdominal pain. Overall pain and swelling to the left axillary areas has improved. No drainage. PHYSICAL EXAMINATION: Blood pressure 137/80 with a pulse of 82, temperature 98.1, he is 99% on room air. General description is a middle-aged male lying in bed in no distress. Respiratory system: Unlabored breathing, clear to auscultation anteriorly. Heart S1, S2. Regular rate and rhythm. Abdomen is soft, no tenderness. Left axillary area swelling has decreased, no drainage. LABS: Creatinine 0.62. Culture finalized with MSSA. Blood culture has been negative. DIAGNOSTIC IMPRESSION AND PLAN: Patient left axillary abscess status post surgical drainage. Culture with MSSA. Overall improvement on vancomycin followed by cefazolin. Plan is to finish therapy with oral Keflex. Prescription sent to the pharmacy. The patient has been educated about his condition recurrent infection. If any recurrence, swelling, redness to let me know right away, otherwise followup as needed. MMODL / IJN: [id number] /
[2020-09-17] MEDS ORDERED: VANCOMYCIN TROUGH DUE 1 EACH MISC MISCELLANE ONE (07:00)
== END 2020-09-16 14:59 | disposition home or self-care (01) | DRG 603 ==
LOC: EC 10:17 → 4SSUR 13:18
PROVIDERS: ADMIT Internal Medicine; ATTEND Internal Medicine
PROC: 0X950ZX Drainage of Left Axilla, Open Approach, Diagnostic (ICD-10-PCS; principal; 2020-09-13)
DX: L02.412 Cutaneous abscess of left axilla (principal); E87.1 Hypo-osmolality and hyponatremia; L03.112 Cellulitis of left axilla; L03.111 Cellulitis of right axilla; L02.414 Cutaneous abscess of left upper limb; J44.9 Chronic obstructive pulmonary disease, unspecified; E11.65 Type 2 diabetes mellitus with hyperglycemia; E11.40 Type 2 diabetes mellitus with diabetic neuropathy, unspecified; L85.3 Xerosis cutis; B95.61 Methicillin susceptible Staphylococcus aureus infection as the cause of diseases classified elsewhere; I10 Essential (primary) hypertension; E78.5 Hyperlipidemia, unspecified; K21.9 Gastro-esophageal reflux disease without esophagitis; Z79.4 Long term (current) use of insulin; Z79.899 Other long term (current) drug therapy; Z87.442 Personal history of urinary calculi; Z87.891 Personal history of nicotine dependence; Z86.14 Personal history of Methicillin resistant Staphylococcus aureus infection; Z79.01 Long term (current) use of anticoagulants; Z88.5 Allergy status to narcotic agent; Z88.8 Allergy status to other drugs, medicaments and biological substances
CPT/HCPCS: 10060; 36415; 80048; 80053; 80202; 81003; 82009; 82565; 82803; 83036; 83605; 83735; 83930; 85025; 87040; 87070; 87077; 87186; 87205; 96372; 96374; 99285

== ENCOUNTER 2020-12-12 00:23 | Inpatient (IN) | payer BC ==
[2020-12-12] MEDS ORDERED: SODIUM CHLORIDE 0.9% 1,000 ML IV STA (00:54)
--- NOTE | 2020-12-12 00:55 | ED ---
Lower Extremity Injury HPI - General Chief Complaint: Wound/Laceration Stated Complaint: infection in both feet Time Seen by Provider: 12/12/20 00:53 Source: patient, RN notes reviewed, old records reviewed Mode of arrival: ambulatory Limitations: no limitations - History of Present Illness Complaint: foot injury (Bilateral great toe swelling and cellulitis) -: hour(s) Injury: Hip: Right, Left, Toes: Right, Left Place: home Severity: moderate Severity scale (1-10): 4 Improves With: nothing Worsens With: weight bearing, movement, palpation Other Symptoms: other (nonw) Associated Symptoms: swelling, numbness, able to partially bear weight - Related Data Home Medications Medication Instructions Recorded Confirmed lisinopriL [Zestril] 20 mg PO DAILY 08/09/19 09/13/20 Gabapentin 800 mg PO TID 01/20/20 09/13/20 Insulin Lispro [humaLOG Kwikpen] 10 unit SQ AC-TID 01/20/20 09/13/20 Tiotropium [place] [Spiriva] 1 cap INHALATION RT-DAILY PRN 01/20/20 09/13/20 Albuterol Inhaler [Ventolin Hfa 1 puff INHALATION RT-QID PRN 08/03/20 09/13/20 Inhaler] Indomethacin [Indocin] 50 mg PO TID PRN 08/03/20 09/13/20 Ibuprofen [Motrin] 800 mg PO Q8H PRN 09/13/20 09/13/20 Insulin Glargine,Hum.rec.anlog 50 unit SQ BID 09/13/20 09/13/20 [Basaglar Kwikpen U-100] Ketoconazole 2% Cream [Nizoral 2%] 1 applic TOPICAL BID PRN 09/13/20 09/13/20 Mupirocin 2% Oint [Bactroban 2% 1 applic TOPICAL TID 09/13/20 09/13/20 Oint] Omeprazole 20 mg PO BID 09/13/20 09/13/20 Rivaroxaban [Xarelto] 2.5 mg PO DAILY 09/13/20 09/13/20 Previous Rx's Medication Instructions Recorded Cephalexin [Keflex] 500 mg PO Q6HR 10 Days #40 cap 09/16/20 Allergies Allergy/AdvReac Type Severity Reaction Status Date / Time hydrocodone [From [place]] AdvReac Heart Verified 12/12/20 00:42 burn, stomach pain metformin AdvReac Nausea & Verified 12/12/20 00:42 Vomiting & Diarrhea Gjcocut-Qfn-Ikq Reductase AdvReac liver Verified 12/12/20 00:42 Inhibitor problems Review of Systems ROS Statement: Those systems with pertinent positive or pertinent negative responses have been documented in the HPI. ROS Other: All systems not noted in ROS Statement are negative. Past Medical History Past Medical History: Diabetes Mellitus, GERD/Reflux, Hypertension Additional Past Medical History / Comment(s): occ. pain with swallowing, hiatal hernia, dry skin, hx kidney stones History of Any Multi-Drug Resistant Organisms: MRSA Date of last positivie culture/infection: 2019 MDRO Source:: right hand Past Surgical History: Orthopedic Surgery Additional Past Surgical History / Comment(s): cystoscopy/stent in urethra, olga carpal tunnel, trigger finger left thumb, rt thumb surgery Past Anesthesia/Blood Transfusion Reactions: No Reported Reaction Additional Past Anesthesia/Blood Transfusion Reaction / Comment(s): dizziness Past Psychological History: No Psychological Hx Reported Smoking Status: Former smoker Past Alcohol Use History: None Reported Past Drug Use History: None Reported - Past Family History Mother Family Medical History: No Reported History General Exam - General Exam Comments Initial Comments: Bilateral lower extremity great toe cellulitis with infection possible dry gangrene right great toe Limitations: no limitations General appearance: alert, in no apparent distress Head exam: Present: atraumatic, normocephalic, normal inspection Eye exam: Present: normal appearance, PERRL, EOMI. Absent: scleral icterus, conjunctival injection, periorbital swelling ENT exam: Present: normal exam, mucous membranes moist Neck exam: Present: normal inspection. Absent: tenderness, meningismus, lymphadenopathy Respiratory exam: Present: normal lung sounds bilaterally. Absent: respiratory distress, wheezes, rales, rhonchi, stridor Cardiovascular Exam: Present: regular rate, normal rhythm, normal heart sounds. Absent: systolic murmur, diastolic murmur, rubs, gallop, clicks GI/Abdominal exam: Present: soft, normal bowel sounds. Absent: distended, tenderness, guarding, rebound, rigid Extremities exam: Present: normal inspection, full ROM, normal capillary refill. Absent: tenderness, pedal edema, joint swelling, calf tenderness Back exam: Present: normal inspection Neurological exam: Present: alert, oriented X3, CN II-XII intact Psychiatric exam: Present: normal affect, normal mood Skin exam: Present: warm, dry, intact, normal color. Absent: rash Course Vital Signs 12/12/20 00:37 Temperature 98.3 F Pulse Rate 101 H Respiratory 18 Rate Blood Pressure 156/80 O2 Sat by Pulse 98 Oximetry - Reevaluation(s) Reevaluation #1: 12/12/20 02:40 Medical record is reviewed Reevaluation #2: 12/12/20 02:40 Patient is informed of results and questions have been answered Reevaluation #3: 12/12/20 02:40 Patient is in no acute distress - Consultations Consultation #1: Spoke with dr marquez to admit the patient they are agreeable Medical Decision Making - Medical Decision Making 55 male to the ER for evaluation patient presents today for evaluation regards to bilateral great toe cellulitis and ulceration history of diabetes. We will admit for diabetic ulcers toe ulcers of bilateral great toe - Lab Data Result diagrams: 12/12/20 01:49 12/12/20 01:49 Lab Results 12/12/20 12/12/20 12/12/20 Range/Units 01:49 01:49 01:49 WBC 9.2 (3.8-10.6) k/uL RBC 4.76 (4.30-5.90) m/uL Hgb 14.8 (13.0-17.5) gm/dL Hct 41.4 (39.0-53.0) % MCV 87.0 (80.0-100.0) fL MCH 31.1 (25.0-35.0) pg MCHC 35.8 (31.0-37.0) g/dL RDW 13.3 (11.5-15.5) % Plt Count 364 (150-450) k/uL MPV 7.4 Neutrophils % 66 % Lymphocytes % 22 % Monocytes % 7 % Eosinophils % 2 % Basophils % 1 % Neutrophils # 6.1 (1.3-7.7) k/uL Lymphocytes # 2.1 (1.0-4.8) k/uL Monocytes # 0.6 (0-1.0) k/uL Eosinophils # 0.2 (0-0.7) k/uL Basophils # 0.0 (0-0.2) k/uL Hyperchromasia Slight Sodium 136 L (137-145) mmol/L Potassium 4.0 (3.5-5.1) mmol/L Chloride 103 (98-107) mmol/L Carbon Dioxide 24 (22-30) mmol/L Anion Gap 9 mmol/L BUN 19 (9-20) mg/dL Creatinine 0.87 (0.66-1.25) mg/dL Est GFR (CKD-EPI)AfAm >90 (>60 ml/min/1.73 sqM) Est GFR (CKD-EPI)NonAf >90 (>60 ml/min/1.73 sqM) Glucose 157 H (74-99) mg/dL Plasma Lactic Acid Mike (0.7-2.0) mmol/L Calcium 9.3 (8.4-10.2) mg/dL Phosphorus 3.3 (2.5-4.5) mg/dL Magnesium 1.9 (1.6-2.3) mg/dL Total Bilirubin 0.4 (0.2-1.3) mg/dL AST 23 (17-59) U/L ALT 27 (4-49) U/L Alkaline Phosphatase 111 (38-126) U/L Troponin I (0.000-0.034) ng/mL NT-Pro-B Natriuret Pep pg/mL Total Protein 6.3 (6.3-8.2) g/dL Albumin 3.6 (3.5-5.0) g/dL Urine Color Yellow Urine Appearance Clear (Clear) Urine pH 5.5 (5.0-8.0) Ur Specific [place] 1.024 (1.001-1.035) Urine Protein Trace H (Negative) Urine Glucose (UA) 3+ H (Negative) Urine Ketones Negative (Negative) Urine Blood Negative (Negative) Urine Nitrite Negative (Negative) Urine Bilirubin Negative (Negative) Urine Urobilinogen <2.0 (<2.0) mg/dL Ur Leukocyte Esterase Negative (Negative) 12/12/20 12/12/20 12/12/20 Range/Units 01:49 01:49 01:49 WBC (3.8-10.6) k/uL RBC (4.30-5.90) m/uL Hgb (13.0-17.5) gm/dL Hct (39.0-53.0) % MCV (80.0-100.0) fL MCH (25.0-35.0) pg MCHC (31.0-37.0) g/dL RDW (11.5-15.5) % Plt Count (150-450) k/uL MPV Neutrophils % % Lymphocytes % % Monocytes % % Eosinophils % % Basophils % % Neutrophils # (1.3-7.7) k/uL Lymphocytes # (1.0-4.8) k/uL Monocytes # (0-1.0) k/uL Eosinophils # (0-0.7) k/uL Basophils # (0-0.2) k/uL Hyperchromasia Sodium (137-145) mmol/L Potassium (3.5-5.1) mmol/L Chloride (98-107) mmol/L Carbon Dioxide (22-30) mmol/L Anion Gap mmol/L BUN (9-20) mg/dL Creatinine (0.66-1.25) mg/dL Est GFR (CKD-EPI)AfAm (>60 ml/min/1.73 sqM) Est GFR (CKD-EPI)NonAf (>60 ml/min/1.73 sqM) Glucose (74-99) mg/dL Plasma Lactic Acid Mike 1.1 (0.7-2.0) mmol/L Calcium (8.4-10.2) mg/dL Phosphorus (2.5-4.5) mg/dL Magnesium (1.6-2.3) mg/dL Total Bilirubin (0.2-1.3) mg/dL AST (17-59) U/L ALT (4-49) U/L Alkaline Phosphatase (38-126) U/L Troponin I <0.012 (0.000-0.034) ng/mL NT-Pro-B Natriuret Pep 114 pg/mL Total Protein (6.3-8.2) g/dL Albumin (3.5-5.0) g/dL Urine Color Urine Appearance (Clear) Urine pH (5.0-8.0) Ur Specific [place] (1.001-1.035) Urine Protein (Negative) Urine Glucose (UA) (Negative) Urine Ketones (Negative) Urine Blood (Negative) Urine Nitrite (Negative) Urine Bilirubin (Negative) Urine Urobilinogen (<2.0) mg/dL Ur Leukocyte Esterase (Negative) - EKG Data -: EKG Interpreted by Me (EKG shows sinus rhythm 89 NC 150 QRS 98 QTc 496) - Radiology Data Radiology results: report reviewed (X-ray bilateral toes no ostial), image reviewed Disposition Clinical Impression: Uncontrolled diabetes mellitus, Bilateral great toes ulcers Disposition: ADMITTED IP TO THIS [facility] Condition: Good Is patient prescribed a controlled substance at d/c from ED?: No Referrals: Julian Carranza MD [Primary Care Provider] - 1-2 days
[2020-12-12] MEDS ORDERED: VANCOMYCIN IV PER PHARMACY 1 EACH MISC MISCELLANE PRN (01:29)
[2020-12-12] MEDS ORDERED: VANCOMYCIN 1,750 MG in SODIUM CHLORIDE 0.9% 500 ML 500 ML IVPB ONE (01:45)
[2020-12-12 02:02] LABS: Basophils % (A) 1 %; Eosinophils # (A) 0.2 k/uL (0-0.7); Eosinophils % (A) 2 %; HCT 41.4 % (39.0-53.0); HGB 14.8 gm/dL (13.0-17.5); Hyperchromasia Slight; Lymphocytes # (A) 2.1 k/uL (1.0-4.8); Lymphocytes % (A) 22 %; MCH 31.1 pg (25.0-35.0); MCHC 35.8 g/dL (31.0-37.0); Mean Platelet Volume 7.4; Monocytes # (A) 0.6 k/uL (0-1.0); Monocytes % (A) 7 %; Neutrophils # (A) 6.1 k/uL (1.3-7.7); Neutrophils % (A) 66 %; Platelet Count 364 k/uL (150-450); RBC 4.76 m/uL (4.30-5.90); RDW 13.3 % (11.5-15.5); WBC 9.2 k/uL (3.8-10.6)
[2020-12-12 02:03] LABS: Appearance,Urine Clear (Clear); Bilirubin,Urine Negative (Negative); Blood,Urine Negative (Negative); Color,Urine Yellow; Glucose,Urine (UA) 3+ (Negative); Ketones,Urine Negative (Negative); Leukocyte Esterase,Urine Negative (Negative); Nitrite,Urine Negative (Negative); PH, Urine 5.5 (5.0-8.0); Protein,Urine Trace (Negative); Specific Gravity,Urine 1.024 (1.001-1.035); Urobilinogen,Urine <2.0 mg/dL (<2.0)
[2020-12-12 02:22] LABS: ALT 27 U/L (4-49); AST 23 U/L (17-59); African American GFR (CKD) >90 (>60 ml/min/1.73 sqM); Albumin 3.6 g/dL (3.5-5.0); Alkaline Phosphatase 111 U/L (38-126); Anion Gap 9 mmol/L; Blood Urea Nitrogen 19 mg/dL (9-20); Calcium 9.3 mg/dL (8.4-10.2); Carbon Dioxide 24 mmol/L (22-30); Chloride 103 mmol/L (98-107); Glucose 157 mg/dL (74-99); Magnesium 1.9 mg/dL (1.6-2.3); Non-African American GFR(CKD) >90 (>60 ml/min/1.73 sqM); Phosphorus 3.3 mg/dL (2.5-4.5); Sodium 136 mmol/L (137-145); Total Bilirubin 0.4 mg/dL (0.2-1.3); Total Protein 6.3 g/dL (6.3-8.2)
[2020-12-12 02:24] LABS: INR 0.9 (<1.2); Prothrombin Time 9.4 sec (9.0-12.0)
[2020-12-12] MEDS ORDERED: ONDANSETRON 4 MG/2 ML VIAL IVP PRN (02:43)
[2020-12-12] MEDS ORDERED: NALOXONE 0.4 MG/ML 1 ML VIAL IV PRN (02:43)
[2020-12-12 02:57] LABS: Partial Thromboplastin Time 21.3 sec (22.0-30.0)
--- NOTE | 2020-12-12 03:12 | XR ---
EXAMINATION TYPE: XR foot limited bilateral DATE OF EXAM: 12/12/2020 COMPARISON: NONE HISTORY: Foot pain TECHNIQUE: 4 views FINDINGS: There is no evidence of fracture nor dislocation. Metatarsals are intact. There is soft t[place] swelling of both feet. There is bilateral mild plantar calcaneal spurring. There is soft tissue s welling of the right big toe. IMPRESSION: Soft tissue swelling. Right big toe soft tissue swelling could relate to cellulitis. No f ocal bone destruction. No fracture.
[2020-12-12] MEDS ORDERED: CLOTRIMAZOLE/BETAMETH 1-0.05% LOTION 30 ML BTL TOPICAL PRN (11:22)
[2020-12-12] MEDS ORDERED: CLOTRIMAZOLE 1% CREAM 30 GM TUBE TOPICAL PRN (11:22)
[2020-12-12] MEDS ORDERED: ALBUTEROL NEBULIZED 2.5 MG/3 ML INHALATION PRN (11:22)
--- NOTE | 2020-12-12 13:57 | P.HPIM ---
History of Present Illness Patient is a pleasant 55-year-old male came in with the complaints of right foot swelling and redness going on for few days. Patient does have diabetic peripheral neuropathy. Patient says his blood sugars are very well under contr ol. Patient had swelling and redness of the right foot along with an ulcer at the tip of the right great toe. REVIEW OF SYSTEMS: CONSTITUTIONAL: No fever, no malaise, no fatigue. HEENT: No recent visual problems or hearing problems. Denied any sore throat. CARDIOVASCULAR: No chest pain, orthopnea, PND, no palpitations, no syncope. PULMONARY: No shortness of breath, no cough, no hemoptysis. GASTROINTESTINAL: No diarrhea, no nausea, no vomiting, no abdominal pain. NEUROLOGICAL: No headaches, no weakness, no numbness. HEMATOLOGICAL: Denies any bleeding or petechiae. GENITOURINARY: Denies any burning micturition, frequency, or urgency. MUSCULOSKELETAL/RHEUMATOLOGICAL: Denies any joint pain, swelling, or any muscle pain. ENDOCRINE: Denies any polyuria or polydipsia. The rest of the 14-point review of systems is negative. PHYSICAL EXAMINATION: GENERAL: The patient is alert and oriented x3, not in any acute distress. Well developed, well nourished. HEENT: Pupils are round and equally reacting to light. EOMI. No scleral icterus. No conjunctival pallor. Normocephalic, atraumatic. No pharyngeal erythema. No thyromegaly. CARDIOVASCULAR: S1 and S2 present. No murmurs, rubs, or gallops. PULMONARY: Chest is clear to auscultation, no wheezing or crackles. ABDOMEN: Soft, nontender, nondistended, normoactive bowel sounds. No palpable organomegaly. MUSCULOSKELETAL: No joint swelling or deformity. EXTREMITIES: No cyanosis, clubbing, or pedal edema. NEUROLOGICAL: Gross neurological examination did not reveal any focal deficits. SKIN: Has swelling of both lower extremities with a cellulitis of the right great toe. Assessment and plan 1 diabetic foot ulcer with the infection.: Patient is on vancomycin and ceftriaxone which will be continued probably ceftriaxone and was switched to Unasyn infectious disease was consulted. Wound cultures will be obtained if p ossible -2 diabetes mellitus, insulin-dependent requiring high doses of insulin patient resumed on home regimen along with sliding scale -Gases feel reflux disease -Hypertension DVT prophylaxis: Lovenox Past Medical History Past Medical History: Diabetes Mellitus, GERD/Reflux, Hypertension Additional Past Medical History / Comment(s): occ. pain with swallowing at times, hiatal hernia, dry skin, hx kidney stones History of Any Multi-Drug Resistant Organisms: MRSA Date of last positivie culture/infection: 2019 MDRO Source:: right hand Past Surgical History: Orthopedic Surgery Additional Past Surgical History / Comment(s): cystoscopy/stent in urethra, olga carpal tunnel, trigger finger left thumb, rt thumb surgery Past Anesthesia/Blood Transfusion Reactions: No Reported Reaction Additional Past Anesthesia/Blood Transfusion Reaction / Comment(s): dizziness Past Psychological History: No Psychological Hx Reported Smoking Status: Former smoker Past Alcohol Use History: None Reported Additional Past Alcohol Use History / Comment(s): smoked for 30 yrs Past Drug Use History: None Reported - Past Family History Mother Family Medical History: No Reported History Medications and Allergies Home Medications Medication Instructions Recorded Confirmed Type lisinopriL [Zestril] 20 mg PO DAILY 08/09/19 12/12/20 History Gabapentin 800 mg PO BID 01/20/20 12/12/20 History Insulin Lispro [humaLOG Kwikpen] 10 unit SQ AC-TID 01/20/20 12/12/20 History Tiotropium [place] [Spiriva] 1 cap INHALATION RT-DAILY PRN 01/20/20 12/12/20 History Albuterol Inhaler [Ventolin Hfa 1 puff INHALATION RT-QID PRN 08/03/20 12/12/20 History Inhaler] Indomethacin [Indocin] 50 mg PO DAILY 08/03/20 12/12/20 History Insulin Glargine,Hum.rec.anlog 50 unit SQ BID 09/13/20 12/12/20 History [Basaglar Kwikpen U-100] Ketoconazole 2% Cream [Nizoral 2%] 1 applic TOPICAL BID PRN 09/13/20 12/12/20 History Omeprazole 20 mg PO BID 09/13/20 12/12/20 History Clotrimazole/Betamethasone Dip 1 applic TOPICAL BID PRN 12/12/20 12/12/20 History [Clotrimazole-Betamethasone Lot] Insulin Lispro [humaLOG Kwikpen] See Protocol SQ AC-TID 12/12/20 12/12/20 History Allergies Allergy/AdvReac Type Severity Reaction Status Date / Time hydrocodone [From [place]] AdvReac Heart Verified 12/12/20 08:22 burn, stomach pain metformin AdvReac Nausea & Verified 12/12/20 08:22 Vomiting & Diarrhea Vvepqgf-Byh-Mah Reductase AdvReac liver Verified 12/12/20 08:22 Inhibitor problems Physical Exam Vitals: Vital Signs Temp Pulse Pulse Resp BP BP Pulse Ox 12/12/20 12:00 908.1 F H 98 14 138/78 98 12/12/20 11:41 98.1 F 90 14 138/78 98 12/12/20 08:00 98 14 12/12/20 06:00 86 18 145/89 99 12/12/20 00:37 98.3 F 101 H 18 156/80 98 Intake and Output 12/11/20 12/12/20 12/12/20 22:59 06:59 14:59 Output Total 0 0 Balance 0 0 Output: Stool 0 0 Other: # Voids 1 Weight 111.13 kg 111.13 kg Results CBC & Chem 7: 12/12/20 01:49 12/12/20 01:49 Labs: Abnormal Lab Results - Last 24 Hours (Table) 12/12/20 12/12/20 12/12/20 Range/Units 01:49 01:49 01:49 APTT 21.3 L (22.0-30.0) sec Sodium 136 L (137-145) mmol/L Glucose 157 H (74-99) mg/dL Urine Protein Trace H (Negative) Urine Glucose (UA) 3+ H (Negative) Thrombosis Risk Factor Assmnt - Choose All That Apply Any of the Below Risk Factors Present?: Yes Each Factor Represents 1 point: Age 41-60 years Other Risk Factors: No Thrombosis Risk Factor Assessment Total Risk Factor Score: 1 Thrombosis Risk Factor Assessment Level: Low Risk
[2020-12-12] MEDS: SODIUM CHLORIDE 0.9% 1,000 ML IV SCH ×3 (14:30→18:26)
[2020-12-12] MEDS: lisinopriL 20 MG TAB PO SCH (14:31)
[2020-12-12 14:38] LABS: Glucose,Whole Blood 261 mg/dL (75-99)
[2020-12-12] MEDS: MORPHINE SULFATE 4 MG/ML SYRINGE IV PRN ×2 (14:42→20:38)
[2020-12-12] MEDS: INSULIN ASPART (NovoLOG) 100 UNIT/ML VIAL SQ SCH ×4 (14:42→20:54)
[2020-12-12] MEDS: IPRATROPIUM 0.5 MG/2.5 ML NEBU INHALATION SCH ×2 (15:47→19:26)
[2020-12-12 17:57] LABS: Glucose,Whole Blood 132 mg/dL (75-99)
[2020-12-12] MEDS: VANCOMYCIN 1,750 MG in SODIUM CHLORIDE 0.9% 500 ML 500 ML IVPB SCH (18:24)
[2020-12-12] MEDS: PANTOPRAZOLE 40 MG TABLET PO SCH (20:37)
[2020-12-12] MEDS: GABAPENTIN 400 MG CAP PO SCH (20:38)
[2020-12-12] MEDS: INSULIN DETEMIR (LEVEMIR) 100 UNIT/ML SYR SQ SCH (20:48)
[2020-12-12 20:49] LABS: Glucose,Whole Blood 132 mg/dL (75-99)
[2020-12-13] MEDS: SODIUM CHLORIDE 0.9% 1,000 ML IV SCH ×4 (02:25→23:48)
[2020-12-13] MEDS: VANCOMYCIN 1,750 MG in SODIUM CHLORIDE 0.9% 500 ML 500 ML IVPB SCH ×2 (02:26→15:15)
[2020-12-13] MEDS: MORPHINE SULFATE 4 MG/ML SYRINGE IV PRN ×3 (05:21→20:20)
[2020-12-13] MEDS: IPRATROPIUM 0.5 MG/2.5 ML NEBU INHALATION SCH ×4 (05:51→20:08)
[2020-12-13 06:03] LABS: ALT 30 U/L (4-49); AST 31 U/L (17-59); African American GFR (CKD) >90 (>60 ml/min/1.73 sqM); Albumin/Globulin Ratio 1.2; Alkaline Phosphatase 104 U/L (38-126); Anion Gap 5 mmol/L; Blood Urea Nitrogen 14 mg/dL (9-20); Calcium 8.8 mg/dL (8.4-10.2); Carbon Dioxide 26 mmol/L (22-30); Chloride 106 mmol/L (98-107); Globulin 2.5 g/dL; Glucose 87 mg/dL (74-99); Non-African American GFR(CKD) >90 (>60 ml/min/1.73 sqM); Sodium 137 mmol/L (137-145); Total Bilirubin 0.2 mg/dL (0.2-1.3); Total Protein 5.5 g/dL (6.3-8.2)
[2020-12-13 07:26] LABS: Glucose,Whole Blood 73 mg/dL (75-99)
[2020-12-13] MEDS: INSULIN DETEMIR (LEVEMIR) 100 UNIT/ML SYR SQ SCH ×2 (07:51→20:50)
[2020-12-13] MEDS: INSULIN ASPART (NovoLOG) 100 UNIT/ML VIAL SQ SCH ×7 (07:52→20:50)
[2020-12-13 08:10] LABS: Glucose,Whole Blood 76 mg/dL (75-99)
[2020-12-13] MEDS: ENOXAPARIN 40 MG/0.4 ML SYRINGE SQ SCH (08:10)
[2020-12-13] MEDS: PANTOPRAZOLE 40 MG TABLET PO SCH ×2 (08:11→20:20)
[2020-12-13] MEDS: GABAPENTIN 400 MG CAP PO SCH ×2 (08:11→20:19)
[2020-12-13] MEDS: INDOMETHACIN 25 MG CAP PO SCH (08:11)
[2020-12-13] MEDS: lisinopriL 20 MG TAB PO SCH (08:11)
--- NOTE | 2020-12-13 08:31 | P.CONS ---
History of Present Illness - Reason for Consult Consult date: 12/12/20 diabetic foot infection Requesting physician: Ayla Salazar - Chief Complaint pain and swelling of right big toe x days - History of Present Illness History of present illness : Patient is 55-year-old male presenting to the ER for evaluation of her bilateral big toe pain swelling in this patient symptom has been going on for more than a week before presentation to the hospital patient denies having any history of any trauma patient right big toe is more swollen and red compared to the left big toe patient be complaining of pain to the toe to be more of a throbbing 5-6 over 10 no radiation patient did have a associated swelling and redness and did have mild drainage especially from the right big toe on presentation to the hospital the patient was afebrile patient did have a normal white count patient did have x-rays of the right foot read to show soft tissue swelling no focal bone destruction patient was admitted to the hospital has been started on vancomycin and Rocephin infectious was consulted for further management of antibiotic therapy Review of system: CONSTITUTIONAL: Patient denies high-grade fever did have some chills. EYES: No complaint. ENT: No complaint. RESPIRATORY: No complaint. CARDIOVASCULAR: No complaint. GENITOURINARY: No complaint. GASTROINTESTINAL: As per history of present illness. MUSCULOSKELETAL: As per history of present illness. INTEGUMENTARY: No complaint. PSYCHOLOGIC: No complaint. ENDOCRINE: No complaint. NEUROLOGIC: No complaint. Past medical history : Reviewed, documented below Past surgical history : Reviewed, documented below Social history: Reviewed, documented below Medications: Reviewed, as documented below EXAMINATION: Vital sigans= Reviewed and documented below GENERAL DESCRIPTION: Middle-aged male lying in bed, no distress. No tachypnea or accessory muscle of respiration use. HEENT: Shows Pallor , no scleral icterus. Oral mucous membrane is dry. NECK: Trachea central, no thyromegaly. LUNGS: Unlabored breathing. Clear to auscultation anteriorly. No wheeze or crackle. HEART: S1, S2, regular rate and rhythm. ABDOMEN: Soft, no tenderness , guarding or rigidity EXTREMITIES: Right big toe is significantly swollen right bruised and almost towards the size of the left big toe with minimal purulent drainage was cultured. SKIN: No rash, no masses palpable. NEUROLOGICAL: The patient is awake, alert, oriented x3, mood and affect normal. LABS AND RADIOLOGY: Reviewed results see below Assessment : Patient admitted to hospital with right big toe diabetic foot infection possibly started with cutting of his toenails trauma associated with it now with evidence of significant cellulitis and concern for possible abscess that will need surgical drainage and will need to call for the polymicrobial marion usually associated with this types of infection Plan: 1-we will obtain her vascular surgeon evaluation for I&D and deep cultures 2-vancomycin pharmacy to dose with a target trough of 15 while watching kidney function and Vanco trough closely. 3-Dc Rocephin and start pt on Unasyn 3gm q6hr We will follow on clinical condition and cultures to further adjust medication if needed Thank you for this consultation we will follow the patient along with you Past Medical History Past Medical History: Diabetes Mellitus, GERD/Reflux, Hypertension Additional Past Medical History / Comment(s): occ. pain with swallowing at times, hiatal hernia, dry skin, hx kidney stones History of Any Multi-Drug Resistant Organisms: MRSA Year Discovered:: 2019 MDRO Source:: right hand Past Surgical History: Orthopedic Surgery Additional Past Surgical History / Comment(s): cystoscopy/stent in urethra, olga carpal tunnel, trigger finger left thumb, rt thumb surgery Past Anesthesia/Blood Transfusion Reactions: No Reported Reaction Additional Past Anesthesia/Blood Transfusion Reaction / Comm: dizziness Past Psychological History: No Psychological Hx Reported Smoking Status: Former smoker Past Alcohol Use History: None Reported Additional Past Alcohol Use History / Comment(s): smoked for 30 yrs Past Drug Use History: None Reported - Past Family History Mother Family Medical History: No Reported History Medications and Allergies Home Medications Medication Instructions Recorded Confirmed Type lisinopriL [Zestril] 20 mg PO DAILY 08/09/19 12/12/20 History Gabapentin 800 mg PO BID 01/20/20 12/12/20 History Insulin Lispro [humaLOG Kwikpen] 10 unit SQ AC-TID 01/20/20 12/12/20 History Tiotropium [place] [Spiriva] 1 cap INHALATION RT-DAILY PRN 01/20/20 12/12/20 History Albuterol Inhaler [Ventolin Hfa 1 puff INHALATION RT-QID PRN 08/03/20 12/12/20 History Inhaler] Indomethacin [Indocin] 50 mg PO DAILY 08/03/20 12/12/20 History Insulin Glargine,Hum.rec.anlog 50 unit SQ BID 09/13/20 12/12/20 History [Basaglar Kwikpen U-100] Ketoconazole 2% Cream [Nizoral 2%] 1 applic TOPICAL BID PRN 09/13/20 12/12/20 History Omeprazole 20 mg PO BID 09/13/20 12/12/20 History Clotrimazole/Betamethasone Dip 1 applic TOPICAL BID PRN 12/12/20 12/12/20 History [Clotrimazole-Betamethasone Lot] Insulin Lispro [humaLOG Kwikpen] See Protocol SQ AC-TID 12/12/20 12/12/20 History Allergies Allergy/AdvReac Type Severity Reaction Status Date / Time hydrocodone [From [place]] AdvReac Heart Verified 12/12/20 08:22 burn, stomach pain metformin AdvReac Nausea & Verified 12/12/20 08:22 Vomiting & Diarrhea Fnffptj-Ppx-Pfb Reductase AdvReac liver Verified 12/12/20 08:22 Inhibitor problems Physical Exam Vitals: Vital Signs Temp Pulse Pulse Resp BP BP Pulse Ox 12/12/20 13:55 98 14 12/12/20 12:00 908.1 F H 98 14 138/78 98 12/12/20 11:41 98.1 F 90 14 138/78 98 12/12/20 08:00 98 14 12/12/20 06:00 86 18 145/89 99 12/12/20 00:37 98.3 F 101 H 18 156/80 98 Intake and Output 12/12/20 12/12/20 12/12/20 06:59 14:59 22:59 Output Total 0 0 Balance 0 0 Output: Stool 0 0 Other: # Voids 1 1 Weight 111.13 kg 111.13 kg Results CBC & Chem 7: 12/12/20 01:49 12/13/20 04:55 Labs: Abnormal Lab Results - Last 24 Hours (Table) 12/12/20 12/12/20 12/12/20 Range/Units 01:49 01:49 01:49 APTT 21.3 L (22.0-30.0) sec Sodium 136 L (137-145) mmol/L Glucose 157 H (74-99) mg/dL POC Glucose (mg/dL) (75-99) mg/dL Urine Protein Trace H (Negative) Urine Glucose (UA) 3+ H (Negative) 12/12/20 Range/Units 14:36 APTT (22.0-30.0) sec Sodium (137-145) mmol/L Glucose (74-99) mg/dL POC Glucose (mg/dL) 261 H (75-99) mg/dL Urine Protein (Negative) Urine Glucose (UA) (Negative)
[2020-12-13 09:48] LABS: Glucose,Whole Blood 217 mg/dL (75-99)
[2020-12-13 09:57] LABS: Basophils # (A) 0.06 X 10*3/uL (0.00-0.10); Basophils % (A) 0.7 %; Eosinophils # (A) 0.28 X 10*3/uL (0.04-0.35); Eosinophils % (A) 3.5 %; HCT 39.2 % (39.6-50.0); HGB 13.2 g/dL (13.0-17.0); Lymphocytes # (A) 2.18 X 10*3/uL (0.90-5.00); Lymphocytes % (A) 26.9 %; MCH 30.1 pg (27.0-32.0); MCHC 33.7 g/dL (32.0-37.0); MCV 89.5 fL (80.0-97.0); Mean Platelet Volume 9.9 fL (9.5-12.2); Monocytes # (A) 0.77 X 10*3/uL (0.20-1.00); Monocytes % (A) 9.5 %; Neutrophils # (A) 4.77 X 10*3/uL (1.80-7.70); Platelet Count 300 X 10*3/uL (140-440); RBC 4.38 X 10*6/uL (4.40-5.60); RDW 12.9 % (11.5-14.5); WBC 8.09 X 10*3/uL (4.50-10.00)
--- NOTE | 2020-12-13 11:11 | P.CONS ---
History of Present Illness - Reason for Consult Consult date: 12/13/20 wound care - History of Present Illness This is a 55-year-old patient known to the wound care center for previous ulcerations to the plantar aspect of the right great toe. Patient states a partially 2 weeks ago he noticed some swelling and discoloration to his right great toe dorsal aspect. Within overnight the area became edematous and reddened. It then opened resulting in a large amount of serosanguineous drainage. Patient called the wound care center for appointment however he was not able to get one until tomorrow. Due to the increase in redness and discomfort the patient went to the emergency room yesterday for evaluation. Patient was found to have a ulceration to the dorsal aspect of the right great toe measuring approximately 0.4 x 0.3 x 0.2 cm. The superior portion of the great toe shows skin to be lifted with ecchymosis and dried blood. There is no granulation seen within the wound bed. The right great toe is edematous. No drainage noted at this time. X-ray of the toe shows soft tissue swelling. Right great toe soft tissue swelling could relate to cellulitis. No focal bone destruction. No fracture Patient's past medical history significant for diabetes, hypertension, GERD, he is a former smoker. Review Of Systems: Constitutional: No fever, no chills, no night sweats. No weight change. No weakness, fatigue or lethargy. No daytime sleepiness. Integumentary:reports wounds, no lesions. No rash or pruritus. No unusual bruising. No change in hair or nails. Physical exam: General Appearance: Alert, cooperative, no distress, appears stated age. Skin: See HPI all other Skin color, texture, tugor normal, no rashes or lesions. Neurologic: Alert oriented x3 Assessment: 1. Nonhealing ulceration with fat layer exposure right great toe 2. Diabetic foot ulcer Plan: 1. Apply honey gel, dry gauze, rolled gauze and secure with paper tape. Do not apply the dressing until evaluated by vascular surgery. Patient to return to the wound care center upon discharge. A new appointment will be rescheduled for him. Thank you for the consultation any questions contact the wound care center DNP note has been reviewed and discussed with Dr. Ariza and the impression and plan of care has been directed as dictated. Past Medical History Past Medical History: Diabetes Mellitus, GERD/Reflux, Hypertension Additional Past Medical History / Comment(s): occ. pain with swallowing at times, hiatal hernia, dry skin, hx kidney stones History of Any Multi-Drug Resistant Organisms: MRSA Year Discovered:: 2019 MDRO Source:: right hand Past Surgical History: Orthopedic Surgery Additional Past Surgical History / Comment(s): cystoscopy/stent in urethra, olga carpal tunnel, trigger finger left thumb, rt thumb surgery Past Anesthesia/Blood Transfusion Reactions: No Reported Reaction Additional Past Anesthesia/Blood Transfusion Reaction / Comm: dizziness Past Psychological History: No Psychological Hx Reported Smoking Status: Former smoker Past Alcohol Use History: None Reported Additional Past Alcohol Use History / Comment(s): smoked for 30 yrs Past Drug Use History: None Reported - Past Family History Mother Family Medical History: No Reported History Medications and Allergies Home Medications Medication Instructions Recorded Confirmed Type lisinopriL [Zestril] 20 mg PO DAILY 08/09/19 12/12/20 History Gabapentin 800 mg PO BID 01/20/20 12/12/20 History Insulin Lispro [humaLOG Kwikpen] 10 unit SQ AC-TID 01/20/20 12/12/20 History Tiotropium [place] [Spiriva] 1 cap INHALATION RT-DAILY PRN 01/20/20 12/12/20 History Albuterol Inhaler [Ventolin Hfa 1 puff INHALATION RT-QID PRN 08/03/20 12/12/20 History Inhaler] Indomethacin [Indocin] 50 mg PO DAILY 08/03/20 12/12/20 History Insulin Glargine,Hum.rec.anlog 50 unit SQ BID 09/13/20 12/12/20 History [Basaglar Kwikpen U-100] Ketoconazole 2% Cream [Nizoral 2%] 1 applic TOPICAL BID PRN 09/13/20 12/12/20 History Omeprazole 20 mg PO BID 09/13/20 12/12/20 History Clotrimazole/Betamethasone Dip 1 applic TOPICAL BID PRN 12/12/20 12/12/20 History [Clotrimazole-Betamethasone Lot] Insulin Lispro [humaLOG Kwikpen] See Protocol SQ AC-TID 12/12/20 12/12/20 History Allergies Allergy/AdvReac Type Severity Reaction Status Date / Time hydrocodone [From [place]] AdvReac Heart Verified 12/12/20 08:22 burn, stomach pain metformin AdvReac Nausea & Verified 12/12/20 08:22 Vomiting & Diarrhea Kmieggk-Jqp-Naa Reductase AdvReac liver Verified 12/12/20 08:22 Inhibitor problems Physical Exam Vitals: Vital Signs Temp Pulse Pulse Resp BP Pulse Ox 12/13/20 11:02 70 12/13/20 08:00 76 15 12/13/20 07:00 98.4 F 76 15 102/65 99 12/13/20 05:52 68 12/13/20 02:36 98.9 F 67 18 114/69 96 12/12/20 20:00 98.3 F 82 20 104/66 97 12/12/20 16:03 74 12/12/20 15:47 72 12/12/20 15:00 97.6 F 76 17 137/84 99 12/12/20 13:55 98 14 12/12/20 12:00 908.1 F H 98 14 138/78 98 12/12/20 11:41 98.1 F 90 14 138/78 98 Intake and Output 12/12/20 12/13/20 12/13/20 22:59 06:59 14:59 Intake Total 360 Output Total 0 Balance 360 Intake: Oral 360 Output: Stool 0 Other: Voiding Method Toilet Toilet Urinal Urinal # Voids 2 1 Results CBC & Chem 7: 12/13/20 04:55 12/13/20 04:55 Labs: Abnormal Lab Results - Last 24 Hours (Table) 12/12/20 12/12/20 12/12/20 Range/Units 14:36 17:55 20:47 RBC (4.40-5.60) X 10*6/uL Hct (39.6-50.0) % POC Glucose (mg/dL) 261 H 132 H 132 H (75-99) mg/dL Total Protein (6.3-8.2) g/dL Albumin (3.5-5.0) g/dL 12/13/20 12/13/20 12/13/20 Range/Units 04:55 04:55 07:24 RBC 4.38 L (4.40-5.60) X 10*6/uL Hct 39.2 L (39.6-50.0) % POC Glucose (mg/dL) 73 L (75-99) mg/dL Total Protein 5.5 L (6.3-8.2) g/dL Albumin 3.0 L (3.5-5.0) g/dL 12/13/20 Range/Units 09:47 RBC (4.40-5.60) X 10*6/uL Hct (39.6-50.0) % POC Glucose (mg/dL) 217 H (75-99) mg/dL Total Protein (6.3-8.2) g/dL Albumin (3.5-5.0) g/dL Microbiology - Last 24 Hours (Table) 12/12/20 16:09 Gram Stain - Preliminary Toe - Right First Wound Culture - Preliminary 12/12/20 16:09 Anaerobic Culture - Preliminary Toe - Right First Assessment and Plan (1) Non-pressure chronic ulcer of other part of right foot with fat layer exposed Current Visit: Yes Status: Acute Code(s): L97.512 - NON-PRS CHRONIC ULCER OTH PRT RIGHT FOOT W FAT LAYER EXPOSED SNOMED Code(s): 017018999 (2) Diabetic foot ulcer Current Visit: Yes Status: Acute Code(s): E11.621 - TYPE 2 DIABETES MELLITUS WITH FOOT ULCER; L97.509 - NON-PRESSURE CHRONIC ULCER OTH PRT UNSP FOOT W UNSP SEVERITY SNOMED Code(s): 363068775
[2020-12-13 11:26] VITALS: BMI 38.3
[2020-12-13] MEDS ORDERED: LIDOCAINE 1% INJ 10MG/ML (10 ML MDV) SQ ONE (11:42)
[2020-12-13 11:59] LABS: Glucose,Whole Blood 142 mg/dL (75-99)
[2020-12-13] MEDS: AMPICILLIN-SULBACTAM 3 GM in SODIUM CHLORIDE 0.9% 100 ML IVPB SCH ×3 (12:14→23:47)
--- NOTE | 2020-12-13 14:09 | P.PN ---
Subjective Progress Note Date: 12/13/20 Patient is a pleasant 55-year-old male came in with the complaints of right foot swelling and redness going on for few days. Patient does have diabetic peripheral neuropathy. Patient says his blood sugars are very well under control. Patient had swelling and redness of the right foot along with an ulcer at the tip of the right great toe. 12/13/2020 Patient is evaluated at the bedside. He denies any pain, states that he is waiting to see wound care. Cultures are currently pending. Patient is on IV ampicillin and IV Vanco being followed closely by infectious disease. Labs today are essentially within normal limits, protein slightly low at 5.5, RBC 4.38. A1c is pending. Vital signs include temperature 98.4, heart rate sinus rhythm 70s, blood pressure 102/65 and 99% room air. Local wound care includes honey gel, dry gauze and rolled gauze with paper tape. Patient is awaiting evaluation by vascular surgery for I&D and deep cultures. ROS Constitutional: Denied any fatigue denied any fever. Cardio vascular: denied any chest pain, palpitations Gastrointestinal denied any nausea vomiting Pulmonary: Denied any shortness of breath cough Neurologic denied any new focal deficits All inpatient medications were reviewed and appropriate changes in these medications as dictated in the interval history and assessment and plan. PHYSICAL EXAMINATION: GENERAL: The patient is alert and oriented x3, not in any acute distress. Well developed, well nourished. HEENT: Pupils are round and equally reacting to light. EOMI. No scleral icterus. No conjunctival pallor. Normocephalic, atraumatic. No pharyngeal erythema. No thyromegaly. CARDIOVASCULAR: S1 and S2 present. No murmurs, rubs, or gallops. PULMONARY: Chest is clear to auscultation, no wheezing or crackles. ABDOMEN: Soft, nontender, nondistended, normoactive bowel sounds. No palpable organomegaly. MUSCULOSKELETAL: No joint swelling or deformity. EXTREMITIES: No cyanosis, clubbing, or pedal edema. NEUROLOGICAL: Gross neurological examination did not reveal any focal deficits. SKIN: Has swelling of both lower extremities with a cellulitis and diabetic ulcer of the right great toe. As well as diabetic ulcer to the left great toe. Assessment and plan 1 diabetic foot ulcer with the infection.: Patient is on vancomycin and ampicillin, Wound cultures pending, IV consult -2 diabetes mellitus, insulin-dependent requiring high doses of insulin patient resumed on home regimen along with sliding scale -Gastroesophageal reflux disease -Hypertension DVT prophylaxis: Lovenox GI prophylaxis: Protonix Plan Waiting evaluation by vascular surgery for ID and deep wound cultures. IV antibiotics cultures pending. Continue all other home medications. Follow up with wound care center on discharge Objective - Vital Signs Vital signs: Vital Signs Temp 98.4 F 12/13/20 07:00 Pulse 76 12/13/20 07:00 Resp 15 12/13/20 07:00 BP 102/65 12/13/20 07:00 Pulse Ox 99 12/13/20 07:00 Intake & Output 12/12/20 12/13/20 12/13/20 18:59 06:59 18:59 Intake Total 360 Output Total 0 Balance 0 360 Weight 111.13 kg Intake: Oral 360 Output: Stool 0 Other: Voiding Method Toilet Urinal # Voids 1 1 - Labs CBC & Chem 7: 12/13/20 04:55 12/13/20 04:55 Labs: Abnormal Lab Results - Last 24 Hours (Table) 12/12/20 12/12/20 12/12/20 Range/Units 14:36 17:55 20:47 RBC (4.40-5.60) X 10*6/uL Hct (39.6-50.0) % POC Glucose (mg/dL) 261 H 132 H 132 H (75-99) mg/dL Total Protein (6.3-8.2) g/dL Albumin (3.5-5.0) g/dL 12/13/20 12/13/20 12/13/20 Range/Units 04:55 04:55 07:24 RBC 4.38 L (4.40-5.60) X 10*6/uL Hct 39.2 L (39.6-50.0) % POC Glucose (mg/dL) 73 L (75-99) mg/dL Total Protein 5.5 L (6.3-8.2) g/dL Albumin 3.0 L (3.5-5.0) g/dL 12/13/20 Range/Units 09:47 RBC (4.40-5.60) X 10*6/uL Hct (39.6-50.0) % POC Glucose (mg/dL) 217 H (75-99) mg/dL Total Protein (6.3-8.2) g/dL Albumin (3.5-5.0) g/dL Microbiology - Last 24 Hours (Table) 12/12/20 16:09 Gram Stain - Preliminary Toe - Right First Wound Culture - Preliminary 12/12/20 16:09 Anaerobic Culture - Preliminary Toe - Right First Assessment and Plan Time with Patient: Greater than 30
[2020-12-13 17:28] LABS: Glucose,Whole Blood 50 mg/dL (75-99)
[2020-12-13 17:45] LABS: Glucose,Whole Blood 77 mg/dL (75-99)
--- NOTE | 2020-12-13 17:52 | CONS ---
CONSULTATION This is a 55-year-old gentleman who came to the emergency room with history of swelling and tenderness of the right foot big toe. The patient has a history of diabetes, under control. Patient stated that he developed ingrowing toenail and he cut his nail at home. Then he noticed there was more redness and swelling and came to the emergency room. He has been complaining of pain in the right foot big toe. There is ulceration noted on the right big toe measuring 0.4 x 0.3 x 0.2 with some most likely blister formation noted, and there is some fluid noted under the skin at the level of the nailbed of the big toe. MEDICAL HISTORY: History of diabetes. PHYSICAL EXAMINATION: Neck is supple. Trachea is central. Chest is clear. Abdomen is soft. Femoral pulses are present. Dorsal pedis is present. Right big toe has tenderness and partially nail has been removed by the patient himself from the nailbed. There is some mild drainage noted at the base of the nailbed. PLAN: We will do I and D and take deep culture for aerobic, anaerobic, and IV antibiotic. Patient may need further intervention to remove the rest of the nailbed, including the nail. Will follow with you. MMODL / IJN: [id number] /
--- NOTE | 2020-12-13 18:00 | OP ---
OPERATIVE REPORT PREOPERATIVE DIAGNOSIS: Infected nail bed, right foot big toe. POSTOPERATIVE DIAGNOSIS: Infected nail bed, right foot big toe. PROCEDURE: Incision and drainage of right foot big toe. INDICATIONS: This patient has an ulceration measurement of 0.4 x 0.3 x 0.2 with some fluctuation noted at the nail bed. 1% lidocaine plain infiltrated and a transverse incision was made, deepened through skin and fat. There was some bleeding noted. We took aerobic and anaerobic cultures. Wound was irrigated with saline. Medihoney gel applied to the wound. Dressing applied. PLAN: IV antibiotics. The patient may need further surgical intervention. Follow with you. Thank you. TASHA / IJN: [id number] /
[2020-12-13 20:45] LABS: Glucose,Whole Blood 235 mg/dL (75-99)
[2020-12-13 23:36] LABS: Glucose,Whole Blood 142 mg/dL (75-99)
[2020-12-14] MEDS: MORPHINE SULFATE 4 MG/ML SYRINGE IV PRN ×4 (01:36→20:41)
[2020-12-14] MEDS: VANCOMYCIN 1,750 MG in SODIUM CHLORIDE 0.9% 500 ML 500 ML IVPB SCH ×2 (03:32→16:07)
[2020-12-14 05:57] LABS: African American GFR (CKD) >90 (>60 ml/min/1.73 sqM); Non-African American GFR(CKD) >90 (>60 ml/min/1.73 sqM)
[2020-12-14] MEDS: AMPICILLIN-SULBACTAM 3 GM in SODIUM CHLORIDE 0.9% 100 ML IVPB SCH ×4 (06:45→23:37)
--- NOTE | 2020-12-14 06:59 | PN ---
PROGRESS NOTE DATE OF SERVICE: 12/13/2020 REASON FOR FOLLOWUP: Right big toe diabetic foot infection. INTERVAL HISTORY: Patient is afebrile, has been complaining of more throbbing pain to the big toe area. The patient denies having any chest pain, shortness of breath or cough. No abdominal pain or any diarrhea. PHYSICAL EXAMINATION: Blood pressure is 120/75 with a pulse of 83, temperature 98.2. He is 94% on room air. General description is a middle-aged male lying in bed in no distress. Respiratory system: Unlabored breathing, clear to auscultation anteriorly. Heart S1, S2. Regular rate and rhythm. Abdomen soft, no tenderness. Labs currently pending. DIAGNOSTIC IMPRESSION AND PLAN: Patient with left big toe infected nail bed and abscess status post debridement. Culture has been obtained. The patient is covered with Unasyn and vancomycin to continue while waiting for the culture to finalize and monitor clinical course closely. MMODL / IJN: [id number] /
[2020-12-14 07:49] LABS: Glucose,Whole Blood 189 mg/dL (75-99)
[2020-12-14] MEDS: INSULIN DETEMIR (LEVEMIR) 100 UNIT/ML SYR SQ SCH ×2 (08:20→20:43)
[2020-12-14] MEDS: INSULIN ASPART (NovoLOG) 100 UNIT/ML VIAL SQ SCH ×7 (08:20→20:42)
[2020-12-14] MEDS: SODIUM CHLORIDE 0.9% 1,000 ML IV SCH ×3 (08:21→23:37)
[2020-12-14] MEDS: GABAPENTIN 400 MG CAP PO SCH ×2 (08:21→20:41)
[2020-12-14] MEDS: ENOXAPARIN 40 MG/0.4 ML SYRINGE SQ SCH (08:21)
[2020-12-14] MEDS: INDOMETHACIN 25 MG CAP PO SCH (08:21)
[2020-12-14] MEDS: PANTOPRAZOLE 40 MG TABLET PO SCH ×2 (08:22→20:42)
[2020-12-14] MEDS: lisinopriL 20 MG TAB PO SCH (08:22)
[2020-12-14] MEDS: IPRATROPIUM 0.5 MG/2.5 ML NEBU INHALATION SCH ×4 (09:03→19:55)
[2020-12-14] MEDS ORDERED: DOCUSATE 100 MG CAP PO PRN (11:16)
[2020-12-14 12:16] LABS: Glucose,Whole Blood 169 mg/dL (75-99)
--- NOTE | 2020-12-14 13:46 | PN ---
PROGRESS NOTE Mr. Chavez is doing well. The patient had debridement of the right foot big toe. Today we have changed the dressing. No drainage or redness noted. We placed him on . The patient is on IV antibiotic under the care of Infectious Disease. Plan is to continue with IV antibiotic and use Medihoney gel for the wound daily. MMODL / IJN: [id number] /
--- NOTE | 2020-12-14 15:10 | PN ---
PROGRESS NOTE DATE OF SERVICE: 12/14/2020 REASON FOR FOLLOWUP: Right big toe diabetic foot infection. INTERVAL HISTORY: The patient is afebrile. The patient is status post debridement of his right big toe. Patient tolerated the procedure. Denies any chest pain or shortness of breath or cough. No abdominal pain or diarrhea. PHYSICAL EXAMINATION: Blood pressure 119/76, pulse of 80, temperature 98.4. He is 97% on room air. General description is a middle-aged male lying in bed in no distress. RESPIRATORY SYSTEM: Unlabored breathing. Clear to auscultation anteriorly. HEART: S1, S2. Regular rate and rhythm. ABDOMEN: Soft. No tenderness. Right big toe is currently dressed. No obvious drainage on the dressing. LABS: Creatinine 0.95. Cultures are currently pending. DIAGNOSTIC IMPRESSION AND PLAN: Patient with a right big toe diabetic foot infection with a blister, status post debridement. Cultures are currently pending. Patient to continue with Unasyn and vancomycin while waiting for the culture to finalize to determine his discharge antibiotics. Continue supportive care. MMODL / IJN: [id number] /
[2020-12-14 17:35] LABS: Glucose,Whole Blood 83 mg/dL (75-99)
--- NOTE | 2020-12-14 18:37 | PN ---
PROGRESS NOTE DATE OF SERVICE: 12/14/2020 This 55-year-old gentleman who was admitted with a diabetic foot ulcer is being closely monitored. No chest pain. No palpitations. No fever. PHYSICAL EXAMINATION: Alert and oriented x3. Pulse 80, blood pressure 119/76, respiration 15, temperature 98.2, pulse ox 97% on room air. HEENT: Conjunctivae normal. NECK: No jugular venous distention. CARDIOVASCULAR: S1, S2 muffled. RESPIRATION: Breath sounds diminished at the bases. No crackles. ABDOMEN: Soft, nontender. LEGS: Diabetic foot ulcer on the right present. LABS: WBC 18, hemoglobin 13.2. Other labs are noted. Accu-Cheks noted. The cultures are showing group D Enterococcus. ASSESSMENT: 1. Diabetic foot ulcer, right, with possible group B Enterococcus. 2. Diabetes mellitus, type 2, insulin-dependent. 3. Gastroesophageal reflux disease. 4. Hypertension. 5. Hyponatremia, mild. 6. Obesity with body mass index of 38.4. 7. History of gastroesophageal reflux disease. 8. History of MRSA. 9. History of degenerative joint disease. 10.Remote history of nicotine dependence. RECOMMENDATIONS AND DISCUSSION: In this 55-year-old gentleman who presented with multiple complex medical issues, we will monitor the patient closely, continue the current medications, continue symptomatic treatment. The patient is currently on Unasyn. Infectious Disease is following the patient closely. Monitor blood sugars closely. Continue the DVT prophylaxis. Closely follow with Wound Care and Infectious Disease. Guarded prognosis. Further recommendations to follow. MMODL / IJN: [id number] /
[2020-12-14 19:47] LABS: Glucose,Whole Blood 209 mg/dL (75-99)
[2020-12-15] MEDS: MORPHINE SULFATE 4 MG/ML SYRINGE IV PRN ×3 (01:00→23:10)
[2020-12-15 01:09] LABS: Glucose,Whole Blood 119 mg/dL (75-99)
[2020-12-15] MEDS ORDERED: VANCOMYCIN TROUGH DUE 1 EACH MISC MISCELLANE ONE (02:00)
[2020-12-15] MEDS: VANCOMYCIN 1,750 MG in SODIUM CHLORIDE 0.9% 500 ML 500 ML IVPB SCH ×3 (04:43→21:44)
[2020-12-15] MEDS: AMPICILLIN-SULBACTAM 3 GM in SODIUM CHLORIDE 0.9% 100 ML IVPB SCH ×3 (05:41→17:53)
[2020-12-15 07:50] LABS: Glucose,Whole Blood 152 mg/dL (75-99)
[2020-12-15] MEDS: IPRATROPIUM 0.5 MG/2.5 ML NEBU INHALATION SCH ×4 (08:06→19:42)
[2020-12-15] MEDS: GABAPENTIN 400 MG CAP PO SCH ×2 (08:56→21:45)
[2020-12-15] MEDS: ENOXAPARIN 40 MG/0.4 ML SYRINGE SQ SCH (08:56)
[2020-12-15] MEDS: INSULIN ASPART (NovoLOG) 100 UNIT/ML VIAL SQ SCH ×7 (08:56→21:45)
[2020-12-15] MEDS: lisinopriL 20 MG TAB PO SCH (08:57)
[2020-12-15] MEDS: PANTOPRAZOLE 40 MG TABLET PO SCH ×2 (08:57→21:45)
[2020-12-15] MEDS: INSULIN DETEMIR (LEVEMIR) 100 UNIT/ML SYR SQ SCH ×2 (08:58→21:45)
[2020-12-15] MEDS: INDOMETHACIN 25 MG CAP PO SCH (08:59)
[2020-12-15] MEDS ORDERED: ALPRAZolam 0.25 MG TAB PO STA (09:08)
[2020-12-15] MEDS: SODIUM CHLORIDE 0.9% 1,000 ML IV SCH ×2 (09:31→17:52)
--- NOTE | 2020-12-15 11:09 | PN ---
PROGRESS NOTE Sven had an infected ingrowing toenail on the right foot. Patient had I and D and excision of the blister. Culture came back as a pseudo venous Staph aureus and group D enterococcus. The patient is under the care of Infectious Disease, on IV antibiotic. Today we have changed the dressing with Medihoney gel and also there is slight redness noted on the left big toe. We used Medihoney gel and patient will be on IV antibiotic under the care of Infectious Disease. There is no discharge noted on the right foot big toe at this point. Patient is responding to the IV antibiotic and local wound care. MMODL / IJN: [id number] /
[2020-12-15 12:12] LABS: Glucose,Whole Blood 159 mg/dL (75-99)
--- NOTE | 2020-12-15 17:21 | PN ---
PROGRESS NOTE DATE OF SERVICE: 12/15/2020 REASON FOR FOLLOWUP: Right big toe diabetic foot infection. INTERVAL HISTORY: Patient did spike a fever, more than 100 the patient afebrile since then. The patient denies having any chest pain, shortness of breath or cough. No abdominal pain or any worsening pain to the bilateral foot wound area. PHYSICAL EXAMINATION: Blood pressure 106/53 with a pulse of 77, temperature 98.1. He is 95% on room air. General description is a middle-aged male lying in bed in no distress. Respiratory system: Unlabored breathing, clear to auscultation anteriorly. Heart S1, S2. Regular rate and rhythm. Abdomen soft, no tenderness. Cultures now showing Staph aureus and group D Enterococcus. DIAGNOSTIC IMPRESSION AND PLAN: Patient with right big toe diabetic foot infection, status post debridement. Cultures with Staph aureus and enterococcus being covered with vancomycin and Unasyn to continue while waiting for the culture to finalize to determine discharge antibiotics. Continue supportive care. MMODL / IJN: [id number] /
[2020-12-15 17:34] LABS: Glucose,Whole Blood 66 mg/dL (75-99)
[2020-12-15 17:54] LABS: Glucose,Whole Blood 100 mg/dL (75-99)
[2020-12-15 20:22] LABS: Glucose,Whole Blood 176 mg/dL (75-99)
--- NOTE | 2020-12-15 20:54 | PN ---
PROGRESS NOTE DATE OF SERVICE: 12/15/2020 This 55-year-old gentleman who was admitted with a diabetic foot ulcer, right, with possible group B Enterococcus, is being closely monitored. Patient is on broad IV antibiotics. No chest pain. No palpitations. No fever. PHYSICAL EXAMINATION: Alert and oriented x3. Pulse is 77, blood pressure 106/63, respiration 18, temperature 98.1, pulse ox 94% on room air. HEENT: Conjunctivae normal. NECK: No jugular venous distention. CARDIOVASCULAR: S1, S2 muffled. RESPIRATION: Breath sounds diminished at the bases. No rhonchi. No crackles. ABDOMEN: Soft, nontender. LEGS: No edema. No swelling. NERVOUS SYSTEM: No focal deficit. LABS: Accu-Cheks 159, otherwise, ESR is elevated at 35. COVID-19 is negative. ASSESSMENT: 1. Right foot diabetic ulcer, status post debridement, growing group Enterococcus as well as Staph aureus. 2. Diabetes mellitus, type 2, insulin-dependent. 3. Gastroesophageal reflux disease. 4. Hypertension. 5. Hyponatremia, mild. 6. Obesity with body mass index of 38.4. 7. History of gastroesophageal reflux disease. 8. History of MRSA. 9. History of degenerative joint disease. 10.Remote history of nicotine dependence. RECOMMENDATIONS AND DISCUSSION: I recommend to continue current medications, continue with symptomatic treatment. Continue with broad-spectrum IV antibiotics. Otherwise, monitor blood sugars closely. Await final cultures. Patient is on vancomycin. Continue to monitor. Further recommendations to follow. MMODL / IJN: [id number] / MTDD
[2020-12-15] MEDS: ALPRAZolam 0.25 MG TAB PO PRN (21:45)
[2020-12-16] MEDS: SODIUM CHLORIDE 0.9% 1,000 ML IV SCH ×4 (00:43→22:50)
[2020-12-16] MEDS: AMPICILLIN-SULBACTAM 3 GM in SODIUM CHLORIDE 0.9% 100 ML IVPB SCH ×4 (00:43→18:22)
[2020-12-16] MEDS ORDERED: guaiFENesin SYRUP 100MG/5ML 200 MG/10 ML CUP PO PRN (00:58)
[2020-12-16] MEDS: MORPHINE SULFATE 4 MG/ML SYRINGE IV PRN ×3 (02:41→19:42)
[2020-12-16] MEDS: VANCOMYCIN 1,750 MG in SODIUM CHLORIDE 0.9% 500 ML 500 ML IVPB SCH ×3 (03:46→21:35)
[2020-12-16] MEDS: ALPRAZolam 0.25 MG TAB PO PRN ×2 (06:12→22:17)
[2020-12-16] MEDS: IPRATROPIUM 0.5 MG/2.5 ML NEBU INHALATION SCH ×4 (07:43→20:03)
[2020-12-16 07:53] LABS: Glucose,Whole Blood 240 mg/dL (75-99)
[2020-12-16] MEDS: INSULIN DETEMIR (LEVEMIR) 100 UNIT/ML SYR SQ SCH ×2 (09:12→20:17)
[2020-12-16] MEDS: INSULIN ASPART (NovoLOG) 100 UNIT/ML VIAL SQ SCH ×7 (09:13→21:40)
[2020-12-16] MEDS: ENOXAPARIN 40 MG/0.4 ML SYRINGE SQ SCH (09:14)
[2020-12-16] MEDS: INDOMETHACIN 25 MG CAP PO SCH (09:15)
[2020-12-16] MEDS: GABAPENTIN 400 MG CAP PO SCH ×2 (09:16→21:40)
[2020-12-16] MEDS: lisinopriL 20 MG TAB PO SCH (09:16)
[2020-12-16] MEDS: PANTOPRAZOLE 40 MG TABLET PO SCH ×2 (09:16→21:39)
[2020-12-16] MEDS ORDERED: VANCOMYCIN TROUGH DUE 1 EACH MISC MISCELLANE ONE (11:00)
[2020-12-16 12:36] LABS: Glucose,Whole Blood 167 mg/dL (75-99)
[2020-12-16 17:41] LABS: Glucose,Whole Blood 122 mg/dL (75-99)
--- NOTE | 2020-12-16 18:10 | PN ---
PROGRESS NOTE DATE OF SERVICE: 12/16/2020 This 55-year-old gentleman who was admitted with right foot diabetic ulcer is being closely monitored. No chest pain. No palpitations. No fever. PHYSICAL EXAMINATION: Alert and oriented. Pulse 69, blood pressure 112/70, respirations 16, temperature 97.2, pulse ox 97% on room air. HEENT: Conjunctivae normal. Oral mucosa moist. NECK: No jugular venous distention. No lymph node enlargement. CARDIOVASCULAR: S1, S2, muffled. No S3, no S4, RESPIRATORY: Diminished breath sounds at the bases. A few scattered rhonchi. ABDOMEN: Soft. NERVOUS SYSTEM: No focal deficits. LABS: Accu-Cheks noted 167. ASSESSMENT: 1. Acute right foot diabetic ulcer status post debridement, growing group D Enterococcus as well as Staph aureus. 2. Diabetes mellitus type 2, insulin dependent. 3. Gastroesophageal reflux disease. 4. Hypertension. 5. Hyponatremia, mild. 6. Obesity with body mass index of 38.4. 7. History of GERD. 8. History of MRSA. 9. History of degenerative joint disease. 10.Remote history of nicotine dependence. RECOMMENDATIONS AND DISCUSSION: Recommend to continue current medications, continue symptomatic treatment. Otherwise, at this time I would recommend monitor blood sugars closely. Continue the antibiotics. Closely follow with Infectious Disease. Further recommendations to follow. MMODL / IJN: [id number] /
[2020-12-16 20:19] LABS: Glucose,Whole Blood 155 mg/dL (75-99)
[2020-12-17] MEDS: AMPICILLIN-SULBACTAM 3 GM in SODIUM CHLORIDE 0.9% 100 ML IVPB SCH ×2 (01:52→06:02)
[2020-12-17] MEDS: MORPHINE SULFATE 4 MG/ML SYRINGE IV PRN (02:08)
--- NOTE | 2020-12-17 03:07 | PN ---
PROGRESS NOTE DATE OF SERVICE: 12/16/2020 REASON FOR FOLLOWUP: Right big toe diabetic foot infection. INTERVAL HISTORY: Patient is afebrile. The patient is currently breathing comfortably. The patient denies having any chest pain. No shortness of breath or cough. No abdominal pain, no diarrhea. PHYSICAL EXAMINATION: Blood pressure 154/92 with a pulse of 73, temperature of 98. He is 100% on room air. General description is a middle-aged male lying in bed in no distress. Respiratory system: Unlabored breathing, clear to auscultation anteriorly. Heart S1, S2. Regular rate and rhythm. Abdomen soft, no tenderness. Right big toe swelling has much improved, no drainage. LABS: Wound culture finalized with MRSA, Enterococcus faecalis. DIAGNOSTIC IMPRESSION AND PLAN: Patient with right big toe diabetic foot infection status post debridement. Culture with MRSA, Enterococcus, to finish therapy with Bactrim DS and oral Augmentin and close outpatient followup. MMODL / IJN: [id number] /
[2020-12-17] MEDS: VANCOMYCIN 1,750 MG in SODIUM CHLORIDE 0.9% 500 ML 500 ML IVPB SCH (03:56)
[2020-12-17 06:03] LABS: African American GFR (CKD) >90 (>60 ml/min/1.73 sqM); Non-African American GFR(CKD) >90 (>60 ml/min/1.73 sqM)
[2020-12-17] MEDS: SODIUM CHLORIDE 0.9% 1,000 ML IV SCH (06:03)
[2020-12-17] MEDS: IPRATROPIUM 0.5 MG/2.5 ML NEBU INHALATION SCH ×2 (07:19→10:58)
[2020-12-17 07:43] VITALS: BP 134/82; PULSE 79; RESP 18; TEMP 98.5
[2020-12-17 08:44] LABS: Glucose,Whole Blood 210 mg/dL (75-99)
[2020-12-17] MEDS: INSULIN ASPART (NovoLOG) 100 UNIT/ML VIAL SQ SCH ×2 (08:45)
[2020-12-17] MEDS: INSULIN DETEMIR (LEVEMIR) 100 UNIT/ML SYR SQ SCH (08:46)
[2020-12-17] MEDS: INDOMETHACIN 25 MG CAP PO SCH (08:46)
[2020-12-17] MEDS: lisinopriL 20 MG TAB PO SCH (08:47)
[2020-12-17] MEDS: PANTOPRAZOLE 40 MG TABLET PO SCH (08:47)
[2020-12-17] MEDS: GABAPENTIN 400 MG CAP PO SCH (08:47)
[2020-12-17] MEDS: ENOXAPARIN 40 MG/0.4 ML SYRINGE SQ SCH (08:48)
[2020-12-17 12:32] LABS: Glucose,Whole Blood 188 mg/dL (75-99)
--- NOTE | 2020-12-20 09:34 | P.DS ---
Providers Date of admission: 12/14/20 13:30 Expected date of discharge: 12/17/20 Attending physician: Radha Hutchins Consults: 12/12/20 11:24 Consult Physician Routine Consulting Provider: Hu Mendoza Consult Reason/Comments: diabetic wounds Do you want consulting provider notified?: Yes 12/12/20 22:48 Consult Physician Routine Consulting Provider: Simon Kimble Consult Reason/Comments: right big toe wound , debridemnt and deep cultures Do you want consulting provider notified?: Yes Primary care physician: Julian Carranza MD Hospital Course: Final diagnosis Acute right foot diabetic ulcer status post debridement, cultures growing MRSA Diabetes mellitus type 2, insulin-dependent Gastroesophageal reflux disease Hypertension Hyponatremia, mild Obesity with a body mass index of 38.4 History of MRSA History of degenerative joint disease Remote history of nicotine dependence Discharge disposition Patient is being discharged in a stable condition with guarded prognosis to home. Patient will follow-up with Dr. Carranza upon discharge. Patient also follow-up with Dr. Dorman in the outpatient setting. Patient will continue with a short course of oral antibiotics in the form of Augmentin twice daily for the next 1 week along with Bactrim twice daily for 1 week as well. Total time taken is greater than 35 minutes. Hospital course This is a 55-year-old male who was recently admitted with right foot diabetic ulcer and being closely monitored. Patient was maintained on IV antibiotics with infectious disease following closely and will transition to Augmentin and Bactrim for 1 week on discharge and instructed the patient to continue following with Dr. Dorman in the outpatient setting. This is an 87-year-old male who was recently admitted with significant ulcerations to the right cheek along with weakness and sepsis, present on admission and was being closely monitored. Infectious disease was following. Patient was treated with antibiotics in the form of IV Zosyn and will be transitioned oral Augmentin twice daily for the next 10 days and then may discontinue. Right first toe cultures finalized showing MRSA and enterococcus faecalis. Patient is adamant about leaving today and awaiting discharge. Currently no reports of chest pain, shortness of breath, or palpitations. Patient is afebrile. No reports of nausea or vomiting and patient is tolerating diet. Patient and family will further discuss palliative care in the outpatient setting. Guarded prognosis. On exam vital signs are stable. Cardio S1, S2 are muffled. Respiratory shows diminished breath sounds at the bases with no wheezing or rhonchi noted. Abdomen is soft and nontender. Nervous system shows no focal deficits. Please refer to medication reconciliation sheet for a list of medications. Patient Condition at Discharge: Stable Plan - Discharge Summary Discharge Rx Participant: No New Discharge Prescriptions: New Amoxic-Pot Clav 875-125Mg [Augmentin 875-125] 1 tab PO Q12HR 7 Days #14 tab Sulfamethox-Tmp 800-160Mg [Bactrim DS 800-160 mg] 1 tab PO Q12HR 7 Days #14 tab Continue lisinopriL [Zestril] 20 mg PO DAILY Gabapentin 800 mg PO BID Tiotropium Swisher [Spiriva] 1 cap INHALATION RT-DAILY PRN PRN Reason: Shortness Of Breath Insulin Lispro [humaLOG Kwikpen] 10 unit SQ AC-TID Insulin Lispro [humaLOG Kwikpen] See Protocol SQ AC-TID Albuterol Inhaler [Ventolin Hfa Inhaler] 1 puff INHALATION RT-QID PRN PRN Reason: Shortness Of Breath Indomethacin [Indocin] 50 mg PO DAILY Ketoconazole 2% Cream [Nizoral 2%] 1 applic TOPICAL BID PRN PRN Reason: Rash Insulin Glargine,Hum.rec.anlog [Basaglar Kwikpen U-100] 50 unit SQ BID Omeprazole 20 mg PO BID Clotrimazole/Betamethasone Dip [Clotrimazole-Betamethasone Lot] 1 applic TOPICAL BID PRN PRN Reason: Rash Discharge Medication List lisinopriL [Zestril] 20 mg PO DAILY 08/09/19 [History] Gabapentin 800 mg PO BID 01/20/20 [History] Insulin Lispro [humaLOG Kwikpen] 10 unit SQ AC-TID 01/20/20 [History] Tiotropium Swisher [Spiriva] 1 cap INHALATION RT-DAILY PRN 01/20/20 [History] Albuterol Inhaler [Ventolin Hfa Inhaler] 1 puff INHALATION RT-QID PRN 08/03/20 [History] Indomethacin [Indocin] 50 mg PO DAILY 08/03/20 [History] Insulin Glargine,Hum.rec.anlog [Basaglar Kwikpen U-100] 50 unit SQ BID 09/13/20 [History] Ketoconazole 2% Cream [Nizoral 2%] 1 applic TOPICAL BID PRN 09/13/20 [History] Omeprazole 20 mg PO BID 09/13/20 [History] Clotrimazole/Betamethasone Dip [Clotrimazole-Betamethasone Lot] 1 applic TOPICAL BID PRN 12/12/20 [History] Insulin Lispro [humaLOG Kwikpen] See Protocol SQ AC-TID 12/12/20 [History] Amoxic-Pot Clav 875-125Mg [Augmentin 875-125] 1 tab PO Q12HR 7 Days #14 tab 12/17/20 [Rx] Sulfamethox-Tmp 800-160Mg [Bactrim DS 800-160 mg] 1 tab PO Q12HR 7 Days #14 tab 12/17/20 [Rx] Follow up Appointment(s)/Referral(s): Moody Dorman DPM [STAFF PHYSICIAN] - 1 Week Julian Carranza MD [Primary Care Provider] - 1-2 days Patient Instructions/Handouts: Foot Care for People with Diabetes (DC), Diabetic Foot Ulcers (DC) Activity/Diet/Wound Care/Special Instructions: Activity Limited until follow-up continue taking antibiotics until finished Follow-up with podiatry follow up with primary care provider upon discharge Discharge Disposition: HOME SELF-CARE
== END 2020-12-17 12:34 | disposition home or self-care (01) | DRG 300 ==
LOC: EC 00:23 → 6NMEDSUR 02:43 → OBSVTOIN 12-14 13:30
PROVIDERS: ADMIT Hospitalist; ATTEND Hospitalist
PROC: 0H9MXZZ Drainage of Right Foot Skin, External Approach (ICD-10-PCS; principal; 2020-12-14)
DX: E11.52 Type 2 diabetes mellitus with diabetic peripheral angiopathy with gangrene (principal); Z16.24 Resistance to multiple antibiotics; E87.1 Hypo-osmolality and hyponatremia; I96 Gangrene, not elsewhere classified; E11.42 Type 2 diabetes mellitus with diabetic polyneuropathy; E11.621 Type 2 diabetes mellitus with foot ulcer; L97.512 Non-pressure chronic ulcer of other part of right foot with fat layer exposed; L97.529 Non-pressure chronic ulcer of other part of left foot with unspecified severity; E11.65 Type 2 diabetes mellitus with hyperglycemia; Z87.891 Personal history of nicotine dependence; Z87.442 Personal history of urinary calculi; Z86.14 Personal history of Methicillin resistant Staphylococcus aureus infection; Z79.899 Other long term (current) drug therapy; Z79.4 Long term (current) use of insulin; Z79.01 Long term (current) use of anticoagulants; K44.9 Diaphragmatic hernia without obstruction or gangrene; M19.90 Unspecified osteoarthritis, unspecified site; K21.9 Gastro-esophageal reflux disease without esophagitis; L60.0 Ingrowing nail; Z68.38 Body mass index [BMI] 38.0-38.9, adult; L03.032 Cellulitis of left toe; L03.031 Cellulitis of right toe; I10 Essential (primary) hypertension; E66.9 Obesity, unspecified; J44.9 Chronic obstructive pulmonary disease, unspecified; E11.628 Type 2 diabetes mellitus with other skin complications
CPT/HCPCS: 36415; 80053; 80202; 81003; 82565; 83036; 83605; 83735; 83880; 84100; 84484; 85025; 85610; 85652; 85730; 86140; 87070; 87075; 87077; 87186; 87205; 87635; 93005; 94640; 96365; 96375; 99284

== ENCOUNTER 2021-03-25 08:56 | Emergency (ER) | payer BC ==
[2021-03-25 09:02] VITALS: TEMP 97.1
[2021-03-25] MEDS ORDERED: SULFAMETHOX-TMP 800-160MG 1 EACH TAB PO STA (09:22)
[2021-03-25] MEDS ORDERED: CEPHALEXIN 500 MG CAP PO STA (09:22)
--- NOTE | 2021-03-25 09:29 | ED ---
General Adult HPI - General Chief complaint: Skin/Abscess/Foreign Body Stated complaint: Hand Inflammation Time Seen by Provider: 03/25/21 09:00 Source: patient, RN notes reviewed, old records reviewed Mode of arrival: ambulatory Limitations: no limitations - History of Present Illness Initial comments: This is a 55-year-old male who was a diabetic and has had MRSA in the past per patient comes in because he has 3 small abscesses on his right arm to the service when the posterior surface. Patient states his been ongoing for about 4 days. Patient denies any fever chills per patient denies any swelling or redness into the hand or up the forearm. There is a 3 solitary lesions per the patient and does not appear to be resolving on its own. Patient states he had multiple small abscesses in the past. Patient denies any injury or trauma to the area. - Related Data Home Medications Medication Instructions Recorded Confirmed lisinopriL [Zestril] 20 mg PO DAILY 08/09/19 12/12/20 Gabapentin 800 mg PO BID 01/20/20 12/12/20 Insulin Lispro [humaLOG Kwikpen] 10 unit SQ AC-TID 01/20/20 12/12/20 Tiotropium Pioneer [Spiriva] 1 cap INHALATION RT-DAILY PRN 01/20/20 12/12/20 Albuterol Inhaler [Ventolin Hfa 1 puff INHALATION RT-QID PRN 08/03/20 12/12/20 Inhaler] Indomethacin [Indocin] 50 mg PO DAILY 08/03/20 12/12/20 Insulin Glargine,Hum.rec.anlog 50 unit SQ BID 09/13/20 12/12/20 [Basaglar Kwikpen U-100] Ketoconazole 2% Cream [Nizoral 2%] 1 applic TOPICAL BID PRN 09/13/20 12/12/20 Omeprazole 20 mg PO BID 09/13/20 12/12/20 Clotrimazole/Betamethasone Dip 1 applic TOPICAL BID PRN 12/12/20 12/12/20 [Clotrimazole-Betamethasone Lot] Insulin Lispro [humaLOG Kwikpen] See Protocol SQ AC-TID 12/12/20 12/12/20 Previous Rx's Medication Instructions Recorded Amoxic-Pot Clav 875-125Mg 1 tab PO Q12HR 7 Days #14 tab 12/17/20 [Augmentin 875-125] Sulfamethox-Tmp 800-160Mg [Bactrim 1 tab PO Q12HR 7 Days #14 tab 12/17/20 DS 800-160 mg] Cephalexin [Keflex] 500 mg PO Q6HR #40 cap 03/25/21 Mupirocin 2% Oint [Bactroban 2% 1 applic TOPICAL TID #22 gm 03/25/21 Oint] Sulfamethox-Tmp 800-160Mg [Bactrim 1 each PO Q12HR #20 tab 03/25/21 DS 800-160 mg] Allergies Allergy/AdvReac Type Severity Reaction Status Date / Time hydrocodone [From [place]] AdvReac Heart Verified 03/25/21 09:02 burn, stomach pain metformin AdvReac Nausea & Verified 03/25/21 09:02 Vomiting & Diarrhea Qgvudaq-CVQ-BqL Reductase AdvReac liver Verified 03/25/21 09:02 Inhibitor problems [Tbgugyf-Gce-Hly Reductase Inhibitor] Review of Systems ROS Statement: Those systems with pertinent positive or pertinent negative responses have been documented in the HPI. ROS Other: All systems not noted in ROS Statement are negative. Past Medical History Past Medical History: Diabetes Mellitus, GERD/Reflux, Hypertension Additional Past Medical History / Comment(s): occ. pain with swallowing at times, hiatal hernia, dry skin, hx kidney stones History of Any Multi-Drug Resistant Organisms: MRSA Date of last positivie culture/infection: 12/13/20 MDRO Source:: TOE Past Surgical History: Orthopedic Surgery Additional Past Surgical History / Comment(s): cystoscopy/stent in urethra, olga carpal tunnel, trigger finger left thumb, rt thumb surgery, shoulder surgery Past Anesthesia/Blood Transfusion Reactions: No Reported Reaction Additional Past Anesthesia/Blood Transfusion Reaction / Comment(s): dizziness Past Psychological History: No Psychological Hx Reported Smoking Status: Former smoker Past Alcohol Use History: None Reported Past Drug Use History: None Reported - Past Family History Mother Family Medical History: No Reported History General Exam - General Exam Comments Initial Comments: GENERAL Patient is well-developed and well-nourished. Patient is in mild distress. EYES Patient's pupils are equal and round. Extraocular motion is intact SKIN Patient has 3 small abscesses the largest being about 1 cm in diameter on the posterior surface of his distal forearm. 2 smaller abscesses on the anterior aspect of his forearm. NEURO The patient is alert and oriented 3 PYSCH Patient has normal interpersonal interactions. MUSCULOSKELETAL All 4 extremities have full range of motion. His hands bilaterally are very callused and patient states this is been ongoing for years. Limitations: no limitations Course Vital Signs 03/25/21 08:58 Temperature 97.1 F L Pulse Rate 99 Respiratory 18 Rate Blood Pressure 160/101 O2 Sat by Pulse 99 Oximetry Procedures - Incision & Drainage Consent Obtained: verbal consent Indication: Abscess Site: upper extremity Size (cm): 1 I&D Cleaning Method: Betadine Needle Aspiration Performed?: Yes Irrigation Performed?: No I&D Drainage Obtained: Pus Culture Obtained?: Yes Complications: pain, bleeding Patient Tolerated Procedure: well Disposition Clinical Impression: Abscess of forearm, right Disposition: HOME SELF-CARE Condition: Good Instructions (If sedation given, give patient instructions): Abscess Incision and Drainage (ED), Abscess (ED) Additional Instructions: Patient should return if there is any worsening of the infection. Prescriptions: Sulfamethox-Tmp 800-160Mg [Bactrim DS 800-160 mg] 1 each PO Q12HR #20 tab Mupirocin 2% Oint [Bactroban 2% Oint] 1 applic TOPICAL TID #22 gm Cephalexin [Keflex] 500 mg PO Q6HR #40 cap Is patient prescribed a controlled substance at d/c from ED?: No Referrals: Julian Carranza MD [Primary Care Provider] - 1-2 days Time of Disposition: 09:26
[2021-03-25 11:13] VITALS: BP 140/75; PULSE 85; RESP 20
== END 2021-03-25 11:13 | disposition home or self-care (01) ==
LOC: EC 08:56
DX: L02.413 Cutaneous abscess of right upper limb (principal); E11.9 Type 2 diabetes mellitus without complications; K21.9 Gastro-esophageal reflux disease without esophagitis; Z79.4 Long term (current) use of insulin; Z87.891 Personal history of nicotine dependence; Z79.899 Other long term (current) drug therapy
CPT/HCPCS: 36415; 87040; 87070; 87077; 87186; 87205; 99282

== ENCOUNTER 2021-09-04 04:39 | Emergency (ER) | payer BC ==
[2021-09-04 07:41] VITALS: TEMP 97.9
[2021-09-04] MEDS ORDERED: ONDANSETRON 4 MG/2 ML VIAL IVP STA (07:52)
[2021-09-04] MEDS ORDERED: SODIUM CHLORIDE 0.9% 500 ML 500 ML IV ONE ×2 (07:52→09:03)
[2021-09-04] MEDS ORDERED: KETOROLAC 15 MG/ML 1 ML VIAL IVP STA (07:56)
--- NOTE | 2021-09-04 07:56 | ED ---
General Adult HPI - General Chief complaint: Extremity Problem,Nontraumatic Stated complaint: Right leg pain Time Seen by Provider: 09/04/21 07:40 Source: patient, RN notes reviewed, old records reviewed Mode of arrival: ambulatory Limitations: no limitations - History of Present Illness Initial comments: This is a 55-year-old male that presents to the emergency room with complaints of a blister forming on his posterior right lower leg with some surrounding redness and pain for 2 days. He states that he also sustained a small abrasion to his right lower leg couple of days ago when he dropped a pocket knife. He states the redness is similar to when he had cellulitis in the past. He does have a history of diabetes, hypertension and MRSA. He denies any fevers or vomiting but does have some nausea. He states he has not taken any of his home medications today. -: days(s) (2) Location: right, lower extremity Severity scale (1-10): 5 Quality: constant Associated Symptoms: nausea/vomiting (no vomiting) - Related Data Home Medications Medication Instructions Recorded Confirmed lisinopriL [Zestril] 20 mg PO DAILY 08/09/19 12/12/20 Gabapentin 800 mg PO BID 01/20/20 12/12/20 Insulin Lispro [humaLOG Kwikpen] 10 unit SQ AC-TID 01/20/20 12/12/20 Tiotropium [place] [Spiriva] 1 cap INHALATION RT-DAILY PRN 01/20/20 12/12/20 Albuterol Inhaler [Ventolin Hfa 1 puff INHALATION RT-QID PRN 08/03/20 12/12/20 Inhaler] Indomethacin [Indocin] 50 mg PO DAILY 08/03/20 12/12/20 Insulin Glargine,Hum.rec.anlog 50 unit SQ BID 09/13/20 12/12/20 [Basaglar Kwikpen U-100] Ketoconazole 2% Cream [Nizoral 2%] 1 applic TOPICAL BID PRN 09/13/20 12/12/20 Omeprazole 20 mg PO BID 09/13/20 12/12/20 Clotrimazole/Betamethasone Dip 1 applic TOPICAL BID PRN 12/12/20 12/12/20 [Clotrimazole-Betamethasone Lot] Insulin Lispro [humaLOG Kwikpen] See Protocol SQ AC-TID 12/12/20 12/12/20 Previous Rx's Medication Instructions Recorded Amoxic-Pot Clav 875-125Mg 1 tab PO Q12HR 7 Days #14 tab 12/17/20 [Augmentin 875-125] Sulfamethox-Tmp 800-160Mg [Bactrim 1 tab PO Q12HR 7 Days #14 tab 12/17/20 DS 800-160 mg] Cephalexin [Keflex] 500 mg PO Q6HR #40 cap 03/25/21 Mupirocin 2% Oint [Bactroban 2% 1 applic TOPICAL TID #22 gm 03/25/21 Oint] Sulfamethox-Tmp 800-160Mg [Bactrim 1 each PO Q12HR #20 tab 03/25/21 DS 800-160 mg] Cephalexin [Keflex] 500 mg PO Q6HR 7 Days #28 cap 09/04/21 Sulfamethox-Tmp 800-160Mg [Bactrim 1 each PO Q12HR 7 Days #14 tab 09/04/21 Ds] Allergies Allergy/AdvReac Type Severity Reaction Status Date / Time hydrocodone [From [place]] AdvReac Heart Verified 09/04/21 05:00 burn, stomach pain metformin AdvReac Nausea & Verified 09/04/21 05:00 Vomiting & Diarrhea Yxlqsrj-MJY-JsA Reductase AdvReac liver Verified 09/04/21 05:00 Inhibitor problems [Eaotyhz-Cya-Hya Reductase Inhibitor] Review of Systems ROS Statement: Those systems with pertinent positive or pertinent negative responses have been documented in the HPI. ROS Other: All systems not noted in ROS Statement are negative. Past Medical History Past Medical History: Diabetes Mellitus, GERD/Reflux, Hypertension Additional Past Medical History / Comment(s): occ. pain with swallowing at times, hiatal hernia, dry skin, hx kidney stones History of Any Multi-Drug Resistant Organisms: MRSA Date of last positivie culture/infection: 12/13/20 MDRO Source:: TOE Past Surgical History: Orthopedic Surgery Additional Past Surgical History / Comment(s): cystoscopy/stent in urethra, olga carpal tunnel, trigger finger left thumb, rt thumb surgery, shoulder surgery Past Anesthesia/Blood Transfusion Reactions: No Reported Reaction Additional Past Anesthesia/Blood Transfusion Reaction / Comment(s): dizziness Past Psychological History: No Psychological Hx Reported Smoking Status: Former smoker Past Alcohol Use History: None Reported Past Drug Use History: None Reported - Past Family History Mother Family Medical History: No Reported History General Exam Limitations: no limitations General appearance: alert, in no apparent distress Head exam: Present: atraumatic Respiratory exam: Present: normal lung sounds bilaterally. Absent: respiratory distress, accessory muscle use Cardiovascular Exam: Present: regular rate GI/Abdominal exam: Present: soft. Absent: distended, tenderness Right Lower Leg exam: Present: tenderness, swelling, abrasion (right lateral mid lower leg with dried scale) Ankle exam: Present: swelling. Absent: tenderness Foot/Toe exam: Present: swelling. Absent: tenderness Neurovascular tendon exam: Present: no vascular compromise. Absent: abnormal cap refill, extremity cold to touch, pallor, foot drop Back exam: Present: normal inspection, full ROM. Absent: tenderness, CVA tenderness (R), CVA tenderness (L), rash noted Neurological exam: Present: alert, oriented X3 Psychiatric exam: Present: normal affect, normal mood Skin exam: Present: warm, dry. Absent: cyanosis, diaphoretic, petechiae, pallor Course Vital Signs 09/04/21 09/04/21 09/04/21 04:58 07:33 10:03 Temperature 98.4 F 97.9 F 97.9 F Pulse Rate 99 98 92 Respiratory 18 16 18 Rate Blood Pressure 176/91 170/90 144/81 O2 Sat by Pulse 99 99 99 Oximetry Medical Decision Making - Medical Decision Making approximately 1 centimeter superficial laceration with dried scale on lateral aspect of the right lower leg from injury 3 days ago. A fluid filled blister to right calf with surrounding erythema consistent with cellulitis. There is no evidence of leukocytosis. Blood glucose levels elevated and patient admits to not taking his daily medications today. He was given 1 L of normal saline and 8 units of subcutaneous insulin. He was also given his daily lisinopril dose. Tetanus shot was updated at this visit. Ultrasound right lower extremity negative for DVT. No evidence of leukocytosis. Patient is afebrile. Patient will be treated for cellulitis with Bactrim and Keflex for his history of MRSA. He was also directed to continue to take his previously prescribed daily medications. Directed to follow-up with his primary care doctor this week. Patient is agreeable to this plan of care. Case discussed with Dr. Gillette - Lab Data Result diagrams: 09/04/21 08:02 09/04/21 08:02 Lab Results 09/04/21 09/04/21 Range/Units 08:02 08:02 WBC 7.6 (3.8-10.6) k/uL RBC 5.08 (4.30-5.90) m/uL Hgb 15.6 (13.0-17.5) gm/dL Hct 47.0 (39.0-53.0) % MCV 92.5 (80.0-100.0) fL MCH 30.7 (25.0-35.0) pg MCHC 33.1 (31.0-37.0) g/dL RDW 14.2 (11.5-15.5) % Plt Count 310 (150-450) k/uL MPV 7.5 Neutrophils % 64 % Lymphocytes % 27 % Monocytes % 5 % Eosinophils % 3 % Basophils % 1 % Neutrophils # 4.9 (1.3-7.7) k/uL Lymphocytes # 2.0 (1.0-4.8) k/uL Monocytes # 0.4 (0-1.0) k/uL Eosinophils # 0.2 (0-0.7) k/uL Basophils # 0.1 (0-0.2) k/uL Sodium 132 L (137-145) mmol/L Potassium 4.2 (3.5-5.1) mmol/L Chloride 103 (98-107) mmol/L Carbon Dioxide 21 L (22-30) mmol/L Anion Gap 8 mmol/L BUN 21 H (9-20) mg/dL Creatinine 0.77 (0.66-1.25) mg/dL Est GFR (CKD-EPI)AfAm >90 (>60 ml/min/1.73 sqM) Est GFR (CKD-EPI)NonAf >90 (>60 ml/min/1.73 sqM) Glucose 378 H (74-99) mg/dL Calcium 8.9 (8.4-10.2) mg/dL Total Bilirubin 0.4 (0.2-1.3) mg/dL AST 21 (17-59) U/L ALT 20 (4-49) U/L Alkaline Phosphatase 90 (38-126) U/L Total Protein 6.4 (6.3-8.2) g/dL Albumin 4.0 (3.5-5.0) g/dL Disposition Clinical Impression: Cellulitis Disposition: HOME SELF-CARE Condition: Good Instructions (If sedation given, give patient instructions): Cellulitis (ED) Additional Instructions: Take antibiotics as prescribed and follow-up with your primary care doctor this week. Tylenol as needed for pain. Return to the emergency room with any new or concerning symptoms including increased redness, pain or fevers. Prescriptions: Sulfamethox-Tmp 800-160Mg [Bactrim Ds] 1 each PO Q12HR 7 Days #14 tab Cephalexin [Keflex] 500 mg PO Q6HR 7 Days #28 cap Is patient prescribed a controlled substance at d/c from ED?: No Referrals: Julian Carranza MD [Primary Care Provider] - 1-2 days Time of Disposition: 09:34
[2021-09-04] MEDS ORDERED: DIPH,PERTUS(ACELL)TETVAC-LF 0.5 ML VIAL IM ONE (07:57)
[2021-09-04 08:44] LABS: Basophils # (A) 0.1 k/uL (0-0.2); Basophils % (A) 1 %; Eosinophils # (A) 0.2 k/uL (0-0.7); Eosinophils % (A) 3 %; HGB 15.6 gm/dL (13.0-17.5); Lymphocytes % (A) 27 %; MCH 30.7 pg (25.0-35.0); MCHC 33.1 g/dL (31.0-37.0); MCV 92.5 fL (80.0-100.0); Mean Platelet Volume 7.5; Monocytes # (A) 0.4 k/uL (0-1.0); Monocytes % (A) 5 %; Neutrophils # (A) 4.9 k/uL (1.3-7.7); Neutrophils % (A) 64 %; Platelet Count 310 k/uL (150-450); RBC 5.08 m/uL (4.30-5.90); RDW 14.2 % (11.5-15.5); WBC 7.6 k/uL (3.8-10.6)
[2021-09-04 08:56] LABS: ALT 20 U/L (4-49); AST 21 U/L (17-59); African American GFR (CKD) >90 (>60 ml/min/1.73 sqM); Alkaline Phosphatase 90 U/L (38-126); Anion Gap 8 mmol/L; Blood Urea Nitrogen 21 mg/dL (9-20); Calcium 8.9 mg/dL (8.4-10.2); Carbon Dioxide 21 mmol/L (22-30); Chloride 103 mmol/L (98-107); Glucose 378 mg/dL (74-99); Non-African American GFR(CKD) >90 (>60 ml/min/1.73 sqM); Potassium 4.2 mmol/L (3.5-5.1); Sodium 132 mmol/L (137-145); Total Bilirubin 0.4 mg/dL (0.2-1.3); Total Protein 6.4 g/dL (6.3-8.2)
--- NOTE | 2021-09-04 09:19 | US ---
EXAMINATION TYPE: US venous doppler duplex LE RT DATE OF EXAM: 09/04/2021 9:09 AM COMPARISON: NONE CLINICAL HISTORY: pain. blistered calf , burning sensation, no h/o DVt but on thinners for unknown re ason SIDE PERFORMED: Right TECHNIQUE: The lower extremity deep venous system is examined utilizing real time linear array sonog caroline with graded compression, doppler sonography and color-flow sonography. VESSELS IMAGED: Common Femoral Vein Deep Femoral Vein Greater Saphenous Vein * Femoral Vein - duplicate vein mid and distal Popliteal Vein Small Saphenous Vein * Proximal Calf Veins (* superficial vessels) Right Leg: Negative for DVT IMPRESSION: 1. Right lower extremity ultrasound negative for deep venous thrombosis.
[2021-09-04] MEDS ORDERED: INSULIN REGULAR 100 UNIT/ML VIAL (IM/SQ) SQ ONE (09:33)
[2021-09-04] MEDS ORDERED: lisinopriL 20 MG TAB PO STA (09:43)
[2021-09-04 10:21] VITALS: BP 144/81; PULSE 92; RESP 18
== END 2021-09-04 10:03 | disposition home or self-care (01) ==
LOC: EC 04:39
DX: L03.115 Cellulitis of right lower limb (principal); E11.9 Type 2 diabetes mellitus without complications; K21.9 Gastro-esophageal reflux disease without esophagitis; I10 Essential (primary) hypertension; Z88.5 Allergy status to narcotic agent; Z88.8 Allergy status to other drugs, medicaments and biological substances; Z79.84 Long term (current) use of oral hypoglycemic drugs; Z79.4 Long term (current) use of insulin; Z87.891 Personal history of nicotine dependence; Z79.899 Other long term (current) drug therapy
CPT/HCPCS: 36415; 80053; 85025; 87040; 93971; 90715; 99284; 90471; 96374; 96375; 96361; J2405; J1885

== ENCOUNTER 2021-09-30 06:17 | Emergency (ER) | payer BC ==
--- NOTE | 2021-09-30 06:52 | ED ---
General Adult HPI - General Chief complaint: Extremity Injury, Lower Stated complaint: right foot pain Time Seen by Provider: 09/30/21 06:40 Source: patient, RN notes reviewed, old records reviewed Mode of arrival: ambulatory Limitations: no limitations - History of Present Illness Initial comments: 56-year-old male presents ambulatory with complaints of continuing right foot pain and swelling. Patient was treated with Keflex and Bactrim a month ago and did see his primary care doctor who put him on additional antibiotics which he continues to take. Patient is ambulatory in the room. No nausea vomiting or diarrhea. Patient does have history of diabetes and hypertension. -: week(s) Location: right, lower extremity (foot) Severity scale (1-10): 6 Quality: constant Consistency: constant Improves with: none Associated Symptoms: fever/chills Treatments Prior to Arrival: other (antibiotics) - Related Data Home Medications Medication Instructions Recorded Confirmed lisinopriL [Zestril] 20 mg PO DAILY 08/09/19 12/12/20 Gabapentin 800 mg PO BID 01/20/20 12/12/20 Insulin Lispro [humaLOG Kwikpen] 10 unit SQ AC-TID 01/20/20 12/12/20 Tiotropium [place] [Spiriva] 1 cap INHALATION RT-DAILY PRN 01/20/20 12/12/20 Albuterol Inhaler [Ventolin Hfa 1 puff INHALATION RT-QID PRN 08/03/20 12/12/20 Inhaler] Indomethacin [Indocin] 50 mg PO DAILY 08/03/20 12/12/20 Insulin Glargine,Hum.rec.anlog 50 unit SQ BID 09/13/20 12/12/20 [Basaglar Kwikpen U-100] Ketoconazole 2% Cream [Nizoral 2%] 1 applic TOPICAL BID PRN 09/13/20 12/12/20 Omeprazole 20 mg PO BID 09/13/20 12/12/20 Clotrimazole/Betamethasone Dip 1 applic TOPICAL BID PRN 12/12/20 12/12/20 [Clotrimazole-Betamethasone Lot] Insulin Lispro [humaLOG Kwikpen] See Protocol SQ AC-TID 12/12/20 12/12/20 Previous Rx's Medication Instructions Recorded Amoxic-Pot Clav 875-125Mg 1 tab PO Q12HR 7 Days #14 tab 12/17/20 [Augmentin 875-125] Sulfamethox-Tmp 800-160Mg [Bactrim 1 tab PO Q12HR 7 Days #14 tab 12/17/20 DS 800-160 mg] Cephalexin [Keflex] 500 mg PO Q6HR #40 cap 03/25/21 Mupirocin 2% Oint [Bactroban 2% 1 applic TOPICAL TID #22 gm 03/25/21 Oint] Sulfamethox-Tmp 800-160Mg [Bactrim 1 each PO Q12HR #20 tab 03/25/21 DS 800-160 mg] Cephalexin [Keflex] 500 mg PO Q6HR 7 Days #28 cap 09/04/21 Sulfamethox-Tmp 800-160Mg [Bactrim 1 each PO Q12HR 7 Days #14 tab 09/04/21 Ds] Allergies Allergy/AdvReac Type Severity Reaction Status Date / Time hydrocodone [From [place]] AdvReac Heart Verified 09/30/21 06:19 burn, stomach pain metformin AdvReac Nausea & Verified 09/30/21 06:19 Vomiting & Diarrhea Vnxtfmt-WOS-RpF Reductase AdvReac liver Verified 09/30/21 06:19 Inhibitor problems [Poxrota-Jhx-Hzl Reductase Inhibitor] Review of Systems ROS Statement: Those systems with pertinent positive or pertinent negative responses have been documented in the HPI. ROS Other: All systems not noted in ROS Statement are negative. Past Medical History Past Medical History: Diabetes Mellitus, GERD/Reflux, Hypertension Additional Past Medical History / Comment(s): occ. pain with swallowing at times, hiatal hernia, dry skin, hx kidney stones History of Any Multi-Drug Resistant Organisms: MRSA Date of last positivie culture/infection: 12/13/20 MDRO Source:: TOE Past Surgical History: Orthopedic Surgery Additional Past Surgical History / Comment(s): cystoscopy/stent in urethra, olga carpal tunnel, trigger finger left thumb, rt thumb surgery, shoulder surgery Past Anesthesia/Blood Transfusion Reactions: No Reported Reaction Additional Past Anesthesia/Blood Transfusion Reaction / Comment(s): dizziness Past Psychological History: No Psychological Hx Reported Smoking Status: Former smoker Past Alcohol Use History: None Reported Past Drug Use History: None Reported - Past Family History Mother Family Medical History: No Reported History General Exam Limitations: no limitations General appearance: alert, in no apparent distress Head exam: Present: atraumatic Respiratory exam: Absent: respiratory distress, accessory muscle use Cardiovascular Exam: Present: tachycardia Right Foot/Toe exam: Present: tenderness, swelling, abrasion (Broken blister dorsum great toe ), erythema Neurovascular tendon exam: Absent: abnormal cap refill, extremity cold to touch Neurological exam: Present: alert, oriented X3, normal gait Psychiatric exam: Present: normal affect, normal mood Skin exam: Present: warm. Absent: cyanosis, diaphoretic, pallor Course Vital Signs 09/30/21 09/30/21 06:19 08:53 Temperature 98.2 F 97.5 F L Pulse Rate 103 H 91 Respiratory 16 18 Rate Blood Pressure 188/97 169/95 O2 Sat by Pulse 96 100 Oximetry Medical Decision Making - Medical Decision Making Patient presents for continued cellulitis of the right foot. I did see the patient September 04 of this year for the same complaint and he was placed on antibiotics at that time. I also ordered an Ultrasound done at that time to rule out DVT which was negative. He was seen by his primary care doctor for follow-up on and was represcribed Bactrim and Keflex for cellulitis. He is ambulating in the room. No fevers in the emergency room. Foot is warm. No evidence of leukocytosis. Vital signs are stable patient is afebrile. He was directed to take the antibiotics his PCP prescribed and elevate the leg for swelling. Patient stats elevation worsens his pain. He was directed to follow up with his primary care doctor as this may be related to vascular disease. I did reinforce that the patient should follow-up with his primary care doctor for continuation of care. Case discussed with Dr. Vazquez. - Lab Data Result diagrams: 09/30/21 07:00 09/30/21 07:00 Lab Results 09/30/21 09/30/21 Range/Units 07:00 07:00 WBC 9.2 (3.8-10.6) k/uL RBC 5.35 (4.30-5.90) m/uL Hgb 15.8 (13.0-17.5) gm/dL Hct 48.3 (39.0-53.0) % MCV 90.2 (80.0-100.0) fL MCH 29.5 (25.0-35.0) pg MCHC 32.7 (31.0-37.0) g/dL RDW 12.9 (11.5-15.5) % Plt Count 374 (150-450) k/uL MPV 7.4 Neutrophils % 65 % Lymphocytes % 24 % Monocytes % 6 % Eosinophils % 2 % Basophils % 1 % Neutrophils # 6.0 (1.3-7.7) k/uL Lymphocytes # 2.2 (1.0-4.8) k/uL Monocytes # 0.5 (0-1.0) k/uL Eosinophils # 0.2 (0-0.7) k/uL Basophils # 0.1 (0-0.2) k/uL Sodium 136 L (137-145) mmol/L Potassium 4.5 (3.5-5.1) mmol/L Chloride 101 (98-107) mmol/L Carbon Dioxide 26 (22-30) mmol/L Anion Gap 9 mmol/L BUN 19 (9-20) mg/dL Creatinine 0.75 (0.66-1.25) mg/dL Est GFR (CKD-EPI)AfAm >90 (>60 ml/min/1.73 sqM) Est GFR (CKD-EPI)NonAf >90 (>60 ml/min/1.73 sqM) Glucose 367 H (74-99) mg/dL Calcium 9.8 (8.4-10.2) mg/dL Total Bilirubin 0.5 (0.2-1.3) mg/dL AST 23 (17-59) U/L ALT 28 (4-49) U/L Alkaline Phosphatase 127 H (38-126) U/L Total Protein 7.3 (6.3-8.2) g/dL Albumin 4.4 (3.5-5.0) g/dL Disposition Clinical Impression: Cellulitis Disposition: HOME SELF-CARE Condition: Good Instructions (If sedation given, give patient instructions): Cellulitis (ED) Additional Instructions: Take antibiotics as prescribed by your primary care doctor on . Follow- up with your doctor this week. Return to the emergency room with any increased pain, swelling and fevers. Is patient prescribed a controlled substance at d/c from ED?: No Referrals: Julian Carranza MD [Primary Care Provider] - 1-2 days Time of Disposition: 08:47
[2021-09-30 07:19] LABS: Basophils # (A) 0.1 k/uL (0-0.2); Basophils % (A) 1 %; Eosinophils # (A) 0.2 k/uL (0-0.7); Eosinophils % (A) 2 %; HCT 48.3 % (39.0-53.0); HGB 15.8 gm/dL (13.0-17.5); Lymphocytes # (A) 2.2 k/uL (1.0-4.8); Lymphocytes % (A) 24 %; MCH 29.5 pg (25.0-35.0); MCHC 32.7 g/dL (31.0-37.0); MCV 90.2 fL (80.0-100.0); Mean Platelet Volume 7.4; Monocytes # (A) 0.5 k/uL (0-1.0); Monocytes % (A) 6 %; Neutrophils % (A) 65 %; Platelet Count 374 k/uL (150-450); RBC 5.35 m/uL (4.30-5.90); RDW 12.9 % (11.5-15.5); WBC 9.2 k/uL (3.8-10.6)
[2021-09-30 07:33] LABS: ALT 28 U/L (4-49); AST 23 U/L (17-59); African American GFR (CKD) >90 (>60 ml/min/1.73 sqM); Albumin 4.4 g/dL (3.5-5.0); Alkaline Phosphatase 127 U/L (38-126); Anion Gap 9 mmol/L; Blood Urea Nitrogen 19 mg/dL (9-20); Calcium 9.8 mg/dL (8.4-10.2); Carbon Dioxide 26 mmol/L (22-30); Chloride 101 mmol/L (98-107); Glucose 367 mg/dL (74-99); Non-African American GFR(CKD) >90 (>60 ml/min/1.73 sqM); Potassium 4.5 mmol/L (3.5-5.1); Sodium 136 mmol/L (137-145); Total Bilirubin 0.5 mg/dL (0.2-1.3); Total Protein 7.3 g/dL (6.3-8.2)
[2021-09-30 08:54] VITALS: BP 169/95; PULSE 91; RESP 18; TEMP 97.5
== END 2021-09-30 09:06 | disposition home or self-care (01) ==
LOC: EC 06:17
DX: S90.811A Abrasion, right foot, initial encounter (principal); L03.115 Cellulitis of right lower limb; E11.9 Type 2 diabetes mellitus without complications; I10 Essential (primary) hypertension; K21.9 Gastro-esophageal reflux disease without esophagitis; Z87.891 Personal history of nicotine dependence; Z79.4 Long term (current) use of insulin; Z79.899 Other long term (current) drug therapy; Z88.5 Allergy status to narcotic agent; Z88.8 Allergy status to other drugs, medicaments and biological substances; X58.XXXA Exposure to other specified factors, initial encounter
CPT/HCPCS: 36415; 80053; 85025; 87040; 99283

== ENCOUNTER 2022-02-13 01:34 | Inpatient (IN) | payer BC, OTHER ==
[2022-02-13 03:11] LABS: Basophils # (A) 0.1 k/uL (0-0.2); Basophils % (A) 1 %; Eosinophils # (A) 0.3 k/uL (0-0.7); Eosinophils % (A) 4 %; HCT 39.4 % (39.0-53.0); HGB 13.9 gm/dL (13.0-17.5); Lymphocytes # (A) 2.2 k/uL (1.0-4.8); Lymphocytes % (A) 29 %; MCH 30.4 pg (25.0-35.0); MCHC 35.3 g/dL (31.0-37.0); Mean Platelet Volume 8.5; Monocytes # (A) 0.5 k/uL (0-1.0); Monocytes % (A) 6 %; Neutrophils # (A) 4.6 k/uL (1.3-7.7); Neutrophils % (A) 59 %; Platelet Count 359 k/uL (150-450); RBC 4.58 m/uL (4.30-5.90); RDW 13.3 % (11.5-15.5); WBC 7.8 k/uL (3.8-10.6)
[2022-02-13 03:38] LABS: ALT 15 U/L (4-49); AST 19 U/L (17-59); African American GFR (CKD) >90 (>60 ml/min/1.73 sqM); Albumin 4.2 g/dL (3.5-5.0); Alkaline Phosphatase 115 U/L (38-126); Anion Gap 9 mmol/L; Blood Urea Nitrogen 13 mg/dL (9-20); Calcium 9.4 mg/dL (8.4-10.2); Carbon Dioxide 26 mmol/L (22-30); Chloride 101 mmol/L (98-107); Glucose 293 mg/dL (74-99); Non-African American GFR(CKD) >90 (>60 ml/min/1.73 sqM); Potassium 4.4 mmol/L (3.5-5.1); Sodium 136 mmol/L (137-145); Total Bilirubin 0.5 mg/dL (0.2-1.3); Total Protein 6.8 g/dL (6.3-8.2)
--- NOTE | 2022-02-13 03:59 | ED ---
Extremity Problem HPI - General Chief complaint: Extremity Problem,Nontraumatic Stated complaint: foot infection Time Seen by Provider: 02/13/22 03:44 Source: patient, RN notes reviewed, old records reviewed Mode of arrival: ambulatory Limitations: no limitations - History of Present Illness Initial comments: This is a 56-year-old male to the emergency department for evaluation presents today for evaluation of severe foot pain severe pain swelling sloughing of skin drainage. Patient was inpatient last week. Patient again has diabetes. Pain and drainage as well as swelling is been getting worse for a few days now MD Complaint: extremity pain, extremity swelling, cold extremity -: days(s) Location: left, toe History of Same: Yes -: Yes myalgia, Yes arthralgia Radiation: none Severity scale (1-10): 7 Quality: aching Consistency: intermittent Improves with: nothing Worsens with: nothing Associated Symptoms: denies other symptoms, fever - Related Data Home Medications Medication Instructions Recorded Confirmed lisinopriL [Zestril] 20 mg PO DAILY 08/09/19 12/12/20 Gabapentin 800 mg PO BID 01/20/20 12/12/20 Insulin Lispro [humaLOG Kwikpen] 10 unit SQ AC-TID 01/20/20 12/12/20 Tiotropium [place] [Spiriva] 1 cap INHALATION RT-DAILY PRN 01/20/20 12/12/20 Albuterol Inhaler [Ventolin Hfa 1 puff INHALATION RT-QID PRN 08/03/20 12/12/20 Inhaler] Indomethacin [Indocin] 50 mg PO DAILY 08/03/20 12/12/20 Insulin Glargine,Hum.rec.anlog 50 unit SQ BID 09/13/20 12/12/20 [Basaglar Kwikpen U-100] Ketoconazole 2% Cream [Nizoral 2%] 1 applic TOPICAL BID PRN 09/13/20 12/12/20 Omeprazole 20 mg PO BID 09/13/20 12/12/20 Clotrimazole/Betamethasone Dip 1 applic TOPICAL BID PRN 12/12/20 12/12/20 [Clotrimazole-Betamethasone Lot] Insulin Lispro [humaLOG Kwikpen] See Protocol SQ AC-TID 12/12/20 12/12/20 Previous Rx's Medication Instructions Recorded Amoxic-Pot Clav 875-125Mg 1 tab PO Q12HR 7 Days #14 tab 12/17/20 [Augmentin 875-125] Sulfamethox-Tmp 800-160Mg [Bactrim 1 tab PO Q12HR 7 Days #14 tab 12/17/20 DS 800-160 mg] Cephalexin [Keflex] 500 mg PO Q6HR #40 cap 03/25/21 Mupirocin 2% Oint [Bactroban 2% 1 applic TOPICAL TID #22 gm 03/25/21 Oint] Sulfamethox-Tmp 800-160Mg [Bactrim 1 each PO Q12HR #20 tab 03/25/21 DS 800-160 mg] Cephalexin [Keflex] 500 mg PO Q6HR 7 Days #28 cap 09/04/21 Sulfamethox-Tmp 800-160Mg [Bactrim 1 each PO Q12HR 7 Days #14 tab 09/04/21 Ds] Allergies Allergy/AdvReac Type Severity Reaction Status Date / Time hydrocodone [From [place]] AdvReac Heart Verified 02/13/22 02:21 burn, stomach pain metformin AdvReac Nausea & Verified 02/13/22 02:21 Vomiting & Diarrhea Uvrtlub-AAX-CmL Reductase AdvReac liver Verified 02/13/22 02:21 Inhibitor problems [Qjgrbud-Nvm-Qxb Reductase Inhibitor] Review of Systems ROS Statement: Those systems with pertinent positive or pertinent negative responses have been documented in the HPI. ROS Other: All systems not noted in ROS Statement are negative. Past Medical History Past Medical History: Diabetes Mellitus, GERD/Reflux, Hypertension Additional Past Medical History / Comment(s): occ. pain with swallowing at times, hiatal hernia, dry skin, hx kidney stones History of Any Multi-Drug Resistant Organisms: MRSA Date of last positivie culture/infection: 12/13/20 MDRO Source:: TOE Past Surgical History: Orthopedic Surgery Additional Past Surgical History / Comment(s): cystoscopy/stent in urethra, olga carpal tunnel, trigger finger left thumb, rt thumb surgery, shoulder surgery Past Anesthesia/Blood Transfusion Reactions: No Reported Reaction Additional Past Anesthesia/Blood Transfusion Reaction / Comment(s): dizziness Past Psychological History: No Psychological Hx Reported Smoking Status: Former smoker Past Alcohol Use History: None Reported Past Drug Use History: None Reported - Past Family History Mother Family Medical History: No Reported History General Exam General appearance: alert, in no apparent distress Head exam: Present: atraumatic, normocephalic, normal inspection Eye exam: Present: normal appearance, PERRL, EOMI. Absent: scleral icterus, conjunctival injection, periorbital swelling ENT exam: Present: normal exam, mucous membranes moist Neck exam: Present: normal inspection. Absent: tenderness, meningismus, lymphadenopathy Respiratory exam: Present: normal lung sounds bilaterally. Absent: respiratory distress, wheezes, rales, rhonchi, stridor Cardiovascular Exam: Present: regular rate, normal rhythm, normal heart sounds. Absent: systolic murmur, diastolic murmur, rubs, gallop, clicks GI/Abdominal exam: Present: soft, normal bowel sounds. Absent: distended, tenderness, guarding, rebound, rigid Extremities exam: Present: normal inspection, full ROM, normal capillary refill. Absent: tenderness, pedal edema, joint swelling, calf tenderness Back exam: Present: normal inspection Neurological exam: Present: alert, oriented X3, CN II-XII intact Psychiatric exam: Present: normal affect, normal mood Skin exam: Present: warm, dry, intact, normal color. Absent: rash Course Vital Signs 02/13/22 02:18 Temperature 97.4 F L Pulse Rate 98 Respiratory 20 Rate Blood Pressure 130/60 O2 Sat by Pulse 98 Oximetry - Reevaluation(s) Reevaluation #1: 02/13/22 04:58 Medical record is reviewed Reevaluation #2: 02/13/22 04:58 Patient has improvement in symptoms here in the ER until her Reevaluation #3: 02/13/22 04:58 Patient informed results and questions answered - Consultations Consultation #1: Spoke with [facility], [place] physicians who agree to admit this patient Medical Decision Making - Medical Decision Making 56 male DF for evaluation. Patient having significant damage to his left great toe left foot. He has severe diabetic neuropathy. Patient has been doing soaks with no help. Unable to weight-bear due to severe pain. - Lab Data Result diagrams: 02/13/22 02:42 02/13/22 02:42 Lab Results 02/13/22 02/13/22 02/13/22 Range/Units 02:42 02:42 02:42 WBC 7.8 (3.8-10.6) k/uL RBC 4.58 (4.30-5.90) m/uL Hgb 13.9 (13.0-17.5) gm/dL Hct 39.4 (39.0-53.0) % MCV 86.0 (80.0-100.0) fL MCH 30.4 (25.0-35.0) pg MCHC 35.3 (31.0-37.0) g/dL RDW 13.3 (11.5-15.5) % Plt Count 359 (150-450) k/uL MPV 8.5 Neutrophils % 59 % Lymphocytes % 29 % Monocytes % 6 % Eosinophils % 4 % Basophils % 1 % Neutrophils # 4.6 (1.3-7.7) k/uL Lymphocytes # 2.2 (1.0-4.8) k/uL Monocytes # 0.5 (0-1.0) k/uL Eosinophils # 0.3 (0-0.7) k/uL Basophils # 0.1 (0-0.2) k/uL Sodium 136 L (137-145) mmol/L Potassium 4.4 (3.5-5.1) mmol/L Chloride 101 (98-107) mmol/L Carbon Dioxide 26 (22-30) mmol/L Anion Gap 9 mmol/L BUN 13 (9-20) mg/dL Creatinine 0.75 (0.66-1.25) mg/dL Est GFR (CKD-EPI)AfAm >90 (>60 ml/min/1.73 sqM) Est GFR (CKD-EPI)NonAf >90 (>60 ml/min/1.73 sqM) Glucose 293 H (74-99) mg/dL Plasma Lactic Acid Mike 1.9 (0.7-2.0) mmol/L Calcium 9.4 (8.4-10.2) mg/dL Total Bilirubin 0.5 (0.2-1.3) mg/dL AST 19 (17-59) U/L ALT 15 (4-49) U/L Alkaline Phosphatase 115 (38-126) U/L Total Protein 6.8 (6.3-8.2) g/dL Albumin 4.2 (3.5-5.0) g/dL Disposition Clinical Impression: Ulcer of left great toe due to diabetes mellitus, Cellulitis Disposition: ADMITTED IP TO THIS HOSP Condition: Fair Is patient prescribed a controlled substance at d/c from ED?: No Referrals: None,Stated [Primary Care Provider] - 1-2 days Time of Disposition: 05:00
[2022-02-13] MEDS ORDERED: VANCOMYCIN IV PER PHARMACY 1 EACH MISC MISCELLANE PRN ×2 (04:53→10:16)
[2022-02-13] MEDS ORDERED: ONDANSETRON 4 MG/2 ML VIAL IVP PRN (04:56)
[2022-02-13] MEDS ORDERED: NALOXONE 0.4 MG/ML 1 ML VIAL IV PRN (04:56)
[2022-02-13] MEDS: SODIUM CHLORIDE 0.9% 1,000 ML IV SCH (05:18)
[2022-02-13] MEDS ORDERED: VANCOMYCIN 1,500 MG in SODIUM CHLORIDE 0.9% 500 ML 500 ML IVPB ONE (05:30)
--- NOTE | 2022-02-13 05:56 | XR ---
EXAMINATION TYPE: XR chest 1V portable DATE OF EXAM: 02/13/2022 COMPARISON: 08/16/2020 HISTORY: Cough TECHNIQUE: FINDINGS: Heart is normal. The lungs are clear of infiltrate and no pleural effusion. Bony thorax is intact IMPRESSION: No active cardiopulmonary disease. No adverse change.
--- NOTE | 2022-02-13 10:39 | P.HPIM ---
History of Present Illness H&P Date: 02/13/22 Chief Complaint: Right lower extremity pain 56-year-old man with medical history of diabetes with diabetic neuropathy, hypertension, hyperlipidemia, COPD, on chronic blood thinner presented for right lower extremity pain. Patient says that for about 1 week he's noticed throbbing pain in his lower extremity followed by a release of discharge material which has a foul smell and improvement in the pain. He's gone through cycles of increasing pain and swelling and throbbing followed by a release of foul- smelling discharge. He has not been able to be seen by a physician due to "change in his insurance recently". Patient has a history of recurrent abscesses and limited compliance to his diabetes medication. He also has social factors limiting his healthcare including consistent follow-up with primary care physician due to being in [facility] intermittently. He denies fevers, chills, nausea, vomiting, chest pain, palpitations, sink B, presyncope, cough, dyspnea, abdominal pain, dysuria, dyschezia, numbness/weakness which is beyond his baseline. In the emergency room, patient was afebrile, 130/60, heart rate 98, 98% on room air. CBC is unremarkable. Chemistries show hyponatremia to 136, otherwise unremarkable. Glucose is 293. Initial troponin is less than 0.012. LFTs are unremarkable. Influenza A, B, RSV, Covid are all negative. Chest x-ray was unremarkable. All Systems reviewed and pertinent positives and negatives noted in HPI, all other symptoms are negative Gen: in no apparent distress, resting comfortably in bed Eyes: PERRL, no scleral injection or icterus HENT: normocephalic, atraumatic, good hearing acuity, moist mucous membranes Neck: no tracheal deviation, full range of motion Resp: good air exchange, breathing comfortably with no accessory muscle use, no tactile fremitus CVS: good distal perfusion x 4, no pitting edema GI: soft, NTTP, ND, no hepatosplenomegaly : no suprapubic tenderness, no CVAT, gale catheter not present MSK: no clubbing, no cyanosis, no noted contractures of extremities, ulcerations and erythema of the right lower extremity with foul-smelling pustular discharge Skin: no noted rashes, petechiae; temperature of skin is appropriate Neuro: moving all extremities without signs of weakness, CN II-XII intact Psych: cooperative, euthymic mood, insight and judgment intact Labs and imaging reviewed as above Assessment/plan: Right lower extremity cellulitis versus osteomyelitis -Admit to observation -Vancomycin, ceftriaxone -Right lower extremity x-ray -ID consultation -Orthopedic surgery consultation -Follow up wound culture, blood culture -Pain control -Wound care consult Uncontrolled diabetes mellitus, type 2 -A1c -Sugar checks before meals -insulin sliding scale, continue long-acting Levemir Hypertension Hyperlipidemia COPD without exacerbation Chronically anticoagulated -home medications reviewed and reconciled Past Medical History Past Medical History: Diabetes Mellitus, GERD/Reflux, Hypertension Additional Past Medical History / Comment(s): occ. pain with swallowing at times, hiatal hernia, dry skin, hx kidney stones History of Any Multi-Drug Resistant Organisms: MRSA Date of last positivie culture/infection: 12/13/20 MDRO Source:: TOE Past Surgical History: Orthopedic Surgery Additional Past Surgical History / Comment(s): cystoscopy/stent in urethra, olga carpal tunnel, trigger finger left thumb, rt thumb surgery, shoulder surgery Past Anesthesia/Blood Transfusion Reactions: No Reported Reaction Additional Past Anesthesia/Blood Transfusion Reaction / Comment(s): dizziness Past Psychological History: No Psychological Hx Reported Smoking Status: Former smoker Past Alcohol Use History: None Reported Past Drug Use History: None Reported - Past Family History Mother Family Medical History: No Reported History Medications and Allergies Home Medications Medication Instructions Recorded Confirmed Type lisinopriL [Zestril] 20 mg PO DAILY 08/09/19 02/13/22 History Insulin Glargine,Hum.rec.anlog 25 unit SQ DIRECTED 09/13/20 02/13/22 History [Basaglar Kwikpen U-100] Omeprazole 20 mg PO BID 09/13/20 02/13/22 History Dulaglutide [Trulicity] 0.75 mg SQ DIRECTED 02/13/22 02/13/22 History Ezetimibe [Zetia] 10 mg PO DAILY 02/13/22 02/13/22 History Lisinopril-Hctz 20-12.5 mg 1 tab PO DAILY 02/13/22 02/13/22 History [Zestoretic 20-12.5] Potassium Chloride ER [K-Dur 20] 20 meq PO DIRECTED 02/13/22 02/13/22 History Pregabalin [Lyrica] 100 mg PO TID 02/13/22 02/13/22 History Rivaroxaban [Xarelto] 2.5 mg PO DIRECTED 02/13/22 02/13/22 History Allergies Allergy/AdvReac Type Severity Reaction Status Date / Time hydrocodone [From [place]] AdvReac Heart Verified 02/13/22 09:27 burn, stomach pain metformin AdvReac Nausea & Verified 02/13/22 09:27 Vomiting & Diarrhea Piskdoz-RTJ-DdL Reductase AdvReac liver Verified 02/13/22 09:27 Inhibitor problems [Jiijbiq-Qep-Xoq Reductase Inhibitor] Physical Exam Osteopathic Statement: *. No significant issues noted on an osteopathic structural exam other than those noted in the History and Physical/Consult. Vitals: Vital Signs Temp Pulse Resp BP Pulse Ox 02/13/22 08:00 20 02/13/22 02:18 97.4 F L 98 20 130/60 98 Intake and Output 02/12/22 02/13/22 02/13/22 22:59 06:59 14:59 Other: Voiding Method Toilet Weight 89.358 kg Results CBC & Chem 7: 02/13/22 02:42 02/13/22 02:42 Labs: Abnormal Lab Results - Last 24 Hours (Table) 02/13/22 Range/Units 02:42 Sodium 136 L (137-145) mmol/L Glucose 293 H (74-99) mg/dL
--- NOTE | 2022-02-13 11:05 | XR ---
EXAMINATION TYPE: XR foot complete RT DATE OF EXAM: 02/13/2022 COMPARISON: 12/12/2020 HISTORY: 56-year-old male nonhealing wound right foot, rule out osteomyelitis. TECHNIQUE: 3 views FINDINGS: There is a wound along the distal aspect of the great toe foci of soft tissue air are prese nt here. No clear osseous destruction is identified. Truncation of the distal phalangeal tuft is unch anged from the 12/12/2020 exam. Small plantar heel spur. Mild generalized soft tissue swelling. IMPRESSION: Soft tissue ulcer involving the distal aspect of the great toe. Foci of air could reflect cellulitis or gangrene. No convincing evidence for underlying osteomyelitis at this time.
[2022-02-13 11:57] LABS: Glucose,Whole Blood 345 mg/dL (70-110)
[2022-02-13] MEDS: INSULIN DETEMIR (LEVEMIR) 100 UNIT/ML SYR SQ SCH ×2 (12:01→20:58)
[2022-02-13] MEDS: RIVAROXABAN 2.5 MG TABLET PO SCH (12:02)
[2022-02-13] MEDS: INSULIN ASPART (NovoLOG) 100 UNIT/ML VIAL SQ SCH ×2 (12:33→17:36)
[2022-02-13] MEDS ORDERED: INFLUENZA VACC (6 MOS-64 YRS) 60 MCG/0.5 ML SYRINGE IM ONE (13:23)
[2022-02-13] MEDS: PREGABALIN 100 MG CAP PO SCH ×2 (16:29→20:58)
[2022-02-13 17:24] LABS: Glucose,Whole Blood 119 mg/dL (70-110)
[2022-02-13] MEDS: VANCOMYCIN 1,500 MG in SODIUM CHLORIDE 0.9% 500 ML 500 ML IVPB SCH (18:13)
--- NOTE | 2022-02-13 18:36 | P.GSHP ---
History of Present Illness H&P Date: 02/13/22 Chief Complaint: Infected right hallux Patient is a 52-year-old white male admitted today with the diabetic foot infection of approximately 1 week duration per the patient. Patient states that this has gotten worse he sought care at several outpatient facilities and was denied treatment due to insurance issues. Patient states it continued to get worse and he presented to the emergency room today as it has been several occasions erupted blistered and drained. Patient has a past medical history of diabetes with diabetic neuropathy hypertension COPD and is on blood thinners. Patient states no treatment to this wound. Past Medical History Past Medical History: Diabetes Mellitus, GERD/Reflux, Hypertension Additional Past Medical History / Comment(s): hiatal hernia, hx kidney stones History of Any Multi-Drug Resistant Organisms: MRSA Date of last positivie culture/infection: 12/13/20 MDRO Source:: TOE Past Surgical History: Orthopedic Surgery Additional Past Surgical History / Comment(s): cystoscopy/stent in urethra, olga carpal tunnel, trigger finger left thumb, rt thumb surgery, shoulder surgery Past Anesthesia/Blood Transfusion Reactions: No Reported Reaction Additional Past Anesthesia/Blood Transfusion Reaction / Comment(s): dizziness Past Psychological History: No Psychological Hx Reported Smoking Status: Former smoker Past Alcohol Use History: None Reported Additional Past Alcohol Use History / Comment(s): smoked for 30 yrs Past Drug Use History: None Reported - Past Family History Mother Family Medical History: No Reported History Medications and Allergies Home Medications Medication Instructions Recorded Confirmed Type lisinopriL [Zestril] 20 mg PO DAILY 08/09/19 02/13/22 History Insulin Glargine,Hum.rec.anlog 25 unit SQ DIRECTED 09/13/20 02/13/22 History [Nadiaaglar Nimapen U-100] Omeprazole 20 mg PO BID 09/13/20 02/13/22 History Dulaglutide [Trulicity] 0.75 mg SQ DIRECTED 02/13/22 02/13/22 History Ezetimibe [Zetia] 10 mg PO DAILY 02/13/22 02/13/22 History Lisinopril-Hctz 20-12.5 mg 1 tab PO DAILY 02/13/22 02/13/22 History [Zestoretic 20-12.5] Potassium Chloride ER [K-Dur 20] 20 meq PO DIRECTED 02/13/22 02/13/22 History Pregabalin [Lyrica] 100 mg PO TID 02/13/22 02/13/22 History Rivaroxaban [Xarelto] 2.5 mg PO DIRECTED 02/13/22 02/13/22 History Allergies Allergy/AdvReac Type Severity Reaction Status Date / Time hydrocodone [From [place]] AdvReac Heart Verified 02/13/22 09:27 burn, stomach pain metformin AdvReac Nausea & Verified 02/13/22 09:27 Vomiting & Diarrhea Ocrkcno-FTL-MrZ Reductase AdvReac liver Verified 02/13/22 09:27 Inhibitor problems [Cfvuszj-Dze-Nzd Reductase Inhibitor] Surgical - Exam Vital Signs Temp Pulse Resp BP Pulse Ox 97.4 F L 98 20 130/60 98 02/13/22 02:18 02/13/22 02:18 02/13/22 02:18 02/13/22 02:18 02/13/22 02:18 - Cardiovascular Patient has diminished but patent pedal pulses bilateral there is no digital andrew r. Extremities are warm with palpation. Patient has edema of the right hallux right second digit to the metatarsophalangeal joint with localized erythema increased temperature. - Integumentary Patient has a full-thickness ulceration on the plantar lateral aspect of the l eft hallux as well as circumferentially or are several ulcerations that appear to be fissured of ABSCESSES located geographically to the MPJ area. There is also a full-thickness ulceration to the distal aspect of the right second digit. There is edema of the digit to the metatarsophalangeal joint. Today's examination there is no discharge from the area but per history patient has had a follow-up smelling discharge from the digit - Neurologic Patient has loss of protective sensation up to including the joint bilateral decreased epicritic and pallesthetic a sensation - Musculoskeletal Range of motion ankle joint decreased bilateral range of motion subtalar joint and midtarsal joint and metatarsophalangeal joints normal and symmetrical without pain or crepitus bilateral all inverters everters plantar flex dorsally grossly intact symmetrical bilateral hammering of digits 234 bilateral review of radiographs show no apparent osteomyelitis Results - Labs 02/13/22 02:42 02/13/22 02:42 Abnormal Lab Results - Last 24 Hours (Table) 02/13/22 02/13/22 02/13/22 Range/Units 02:42 11:55 17:23 Sodium 136 L (137-145) mmol/L Glucose 293 H (74-99) mg/dL POC Glucose (mg/dL) 345 H 119 H (70-110) mg/dL Diabetes panel 02/13/22 Range/Units 02:42 Sodium 136 L (137-145) mmol/L Potassium 4.4 (3.5-5.1) mmol/L Chloride 101 (98-107) mmol/L Carbon Dioxide 26 (22-30) mmol/L BUN 13 (9-20) mg/dL Creatinine 0.75 (0.66-1.25) mg/dL Glucose 293 H (74-99) mg/dL Calcium 9.4 (8.4-10.2) mg/dL AST 19 (17-59) U/L ALT 15 (4-49) U/L Alkaline Phosphatase 115 (38-126) U/L Total Protein 6.8 (6.3-8.2) g/dL Albumin 4.2 (3.5-5.0) g/dL Calcium panel 02/13/22 Range/Units 02:42 Calcium 9.4 (8.4-10.2) mg/dL Albumin 4.2 (3.5-5.0) g/dL Pituitary panel 02/13/22 Range/Units 02:42 Sodium 136 L (137-145) mmol/L Potassium 4.4 (3.5-5.1) mmol/L Chloride 101 (98-107) mmol/L Carbon Dioxide 26 (22-30) mmol/L BUN 13 (9-20) mg/dL Creatinine 0.75 (0.66-1.25) mg/dL Glucose 293 H (74-99) mg/dL Calcium 9.4 (8.4-10.2) mg/dL Adrenal panel 02/13/22 Range/Units 02:42 Sodium 136 L (137-145) mmol/L Potassium 4.4 (3.5-5.1) mmol/L Chloride 101 (98-107) mmol/L Carbon Dioxide 26 (22-30) mmol/L BUN 13 (9-20) mg/dL Creatinine 0.75 (0.66-1.25) mg/dL Glucose 293 H (74-99) mg/dL Calcium 9.4 (8.4-10.2) mg/dL Total Bilirubin 0.5 (0.2-1.3) mg/dL AST 19 (17-59) U/L ALT 15 (4-49) U/L Alkaline Phosphatase 115 (38-126) U/L Total Protein 6.8 (6.3-8.2) g/dL Albumin 4.2 (3.5-5.0) g/dL Assessment and Plan Assessment: Infected diabetic foot ulceration right foot Plan: Exam. Discussed with patient findings and treatment plan. We'll have a culture and sensitivity taken of the area after which will apply Silvadene dry sterile dressing. We'll consult vascular for definitive care possible amputation based on the amount of soft tissue destruction that is seen clinically with this digit. If amputation is not warranted with the vascular consult consider getting a triphasic bone scan to determine if there is no underlying osteomyelitis process considering the extent and duration of this infection. Thank you for this consult
[2022-02-13 20:18] LABS: Glucose,Whole Blood 160 mg/dL (70-110)
[2022-02-13] MEDS: NEOMYCIN-BACITRACIN-POLY OINT 14 GM TUBE TOPICAL SCH (20:59)
--- NOTE | 2022-02-13 22:44 | P.CONS ---
History of Present Illness - Reason for Consult Consult date: 02/13/22 diabetic foot infection Requesting physician: Shaila Baron - Chief Complaint Right big toe swelling and redness x days - History of Present Illness Patient is a 56-year-old male with a past medical history significant for diabetes mellitus hypertension hyperlipidemia COPD and diabetic neuropathy patient is presenting to the hospital for increasing swelling redness to the right leg to patient mention his symptom has been going on for about a week denies any history of any trauma he did have diffuse swelling and redness along with some foul-smelling from the right big toe has been complaining of some throbbing pain 2-3-no radiation with the symptom the patient was evaluated by ER physician on arrival to the ER the patient was afebrile and no fever has been recorded subsequently patient did have a normal white count kidney function has been normal liver enzymes are normal COVID influenza and RSV PCR was negative local wound culture has been obtained which are currently pending patient did have a chest x-ray no active cardiopulmonary disease x-ray of the foot did show soft tissue ulcer involving the distal aspect of the great toe foci of air could reflect cellulitis or gangrene patient was started on Rocephin and vancomycin infectious disease was consulted for further management of antibiotic therapy Review of Systems Positive point has been mentioned in the HPI rest of the systems are negative Past Medical History Past Medical History: Diabetes Mellitus, GERD/Reflux, Hypertension Additional Past Medical History / Comment(s): occ. pain with swallowing at times, hiatal hernia, dry skin, hx kidney stones History of Any Multi-Drug Resistant Organisms: MRSA Year Discovered:: 12/13/20 MDRO Source:: TOE Past Surgical History: Orthopedic Surgery Additional Past Surgical History / Comment(s): cystoscopy/stent in urethra, olga carpal tunnel, trigger finger left thumb, rt thumb surgery, shoulder surgery Past Anesthesia/Blood Transfusion Reactions: No Reported Reaction Additional Past Anesthesia/Blood Transfusion Reaction / Comm: dizziness Past Psychological History: No Psychological Hx Reported Smoking Status: Former smoker Past Alcohol Use History: None Reported Past Drug Use History: None Reported - Past Family History Mother Family Medical History: No Reported History Medications and Allergies Home Medications Medication Instructions Recorded Confirmed Type Insulin Glargine,Hum.rec.anlog 25 unit SQ DIRECTED 09/13/20 02/13/22 History [Tami Clemens U-100] Omeprazole 20 mg PO BID 09/13/20 02/13/22 History Dulaglutide [Trulicity] 0.75 mg SQ DIRECTED 02/13/22 02/13/22 History Ezetimibe [Zetia] 10 mg PO DAILY 02/13/22 02/13/22 History Lisinopril-Hctz 20-12.5 mg 1 tab PO DAILY 02/13/22 02/13/22 History [Zestoretic 20-12.5] Pregabalin [Lyrica] 100 mg PO TID 02/13/22 02/13/22 History Rivaroxaban [Xarelto] 2.5 mg PO DIRECTED 02/13/22 02/13/22 History Amoxic-Pot Clav 875-125Mg 1 tab PO Q12HR 14 Days #28 tab 02/19/22 Rx [Augmentin 875-125] Hdicnvkp-Fuctjicaja-Kgjd Oint 1 applic TOPICAL DAILY each 02/19/22 Rx [Triple Antibiotic Ointment] Allergies Allergy/AdvReac Type Severity Reaction Status Date / Time hydrocodone [From [place]] AdvReac Heart Verified 02/13/22 09:27 burn, stomach pain metformin AdvReac Nausea & Verified 02/13/22 09:27 Vomiting & Diarrhea Pvlsmid-QQL-PwH Reductase AdvReac liver Verified 02/13/22 09:27 Inhibitor problems [Aediwxe-Ubp-Hze Reductase Inhibitor] Physical Exam Vitals: Vital Signs Temp Pulse Resp BP Pulse Ox 02/13/22 08:00 20 02/13/22 02:18 97.4 F L 98 20 130/60 98 Intake and Output 02/12/22 02/13/22 02/13/22 22:59 06:59 14:59 Other: Voiding Method Toilet Weight 89.358 kg GENERAL DESCRIPTION: Middle-aged male lying in bed, no distress. No tachypnea or accessory muscle of respiration use. HEENT: Shows Pallor , no scleral icterus. Oral mucous membrane is dry. No pharyngeal erythema or thrush NECK: Trachea central, no thyromegaly. LUNGS: Unlabored breathing. Clear to auscultation anteriorly. No wheeze or crackle. HEART: S1, S2, regular rate and rhythm. No loud murmur ABDOMEN: Soft, no tenderness , guarding or rigidity, no organomegaly EXTREMITIES: Right big toe did have significant swelling and redness with the plantar ulcer no foul-smelling drainage. SKIN: No rash, no masses palpable. NEUROLOGICAL: The patient is awake, alert, oriented x3, mood and affect normal. Results CBC & Chem 7: 02/14/22 05:57 02/19/22 05:40 Labs: Abnormal Lab Results - Last 24 Hours (Table) 02/13/22 Range/Units 02:42 Sodium 136 L (137-145) mmol/L Glucose 293 H (74-99) mg/dL Assessment and Plan (1) Diabetic foot infection Status: Acute Code(s): E11.628 - TYPE 2 DIABETES MELLITUS WITH OTHER SKIN COMPLICATIONS; L08.9 - LOCAL INFECTION OF THE SKIN AND SUBCUTANEOUS TISSUE, UNSP SNOMED Code(s): 524171502 Plan: 1patient with a right big toe diabetic foot infection in this patient with significant swelling redness and did have questions on the plantar aspect of the right big toe along with swelling redness of the right big toe with the x-ray did shows evidence of soft tissue swelling and air concerning for possible gangrene will need to cover for the polymicrobial marion usually associated with the diabetic foot infection 2await surgical evaluation debridement and deep culture 3continue the vancomycin however switch Rocephin to Unasyn while waiting for the culture to finalize We will follow on clinical condition and cultures to further adjust medication if needed Thank you for this consultation will follow this patient along with you Time with Patient: Greater than 30
[2022-02-13] MEDS: AMPICILLIN-SULBACTAM 3 GM in SODIUM CHLORIDE 0.9% 100 ML IVPB SCH (23:37)
[2022-02-14] MEDS: AMPICILLIN-SULBACTAM 3 GM in SODIUM CHLORIDE 0.9% 100 ML IVPB SCH ×4 (06:31→23:54)
[2022-02-14] MEDS: VANCOMYCIN 1,500 MG in SODIUM CHLORIDE 0.9% 500 ML 500 ML IVPB SCH ×2 (06:31→18:07)
[2022-02-14 07:13] LABS: Glucose,Whole Blood 217 mg/dL (70-110)
[2022-02-14 08:55] LABS: Basophils # (A) 0.08 X 10*3/uL (0.00-0.10); Basophils % (A) 0.9 %; Eosinophils # (A) 0.38 X 10*3/uL (0.04-0.35); Eosinophils % (A) 4.2 %; HCT 39.4 % (39.6-50.0); HGB 13.6 g/dL (13.0-17.0); Immature Grans, Automated 0.3 %; Lymphocytes # (A) 1.29 X 10*3/uL (0.90-5.00); Lymphocytes % (A) 14.2 %; MCHC 34.5 g/dL (32.0-37.0); Monocytes # (A) 0.83 X 10*3/uL (0.20-1.00); Monocytes % (A) 9.1 %; NRBC Per 100 WBC 0 /100 WBCS (0.0-0.0); Neutrophils # (A) 6.48 X 10*3/uL (1.80-7.70); Neutrophils % (A) 71.3 %; Platelet Count 361 X 10*3/uL (140-440); RBC 4.53 X 10*6/uL (4.40-5.60); RDW 12.8 % (11.5-14.5); WBC 9.09 X 10*3/uL (4.50-10.00)
[2022-02-14] MEDS: EZETIMIBE 10 MG TAB PO SCH (09:12)
[2022-02-14] MEDS: PREGABALIN 100 MG CAP PO SCH ×3 (09:12→21:29)
[2022-02-14] MEDS: PANTOPRAZOLE 40 MG TABLET PO SCH (09:12)
[2022-02-14] MEDS: INSULIN ASPART (NovoLOG) 100 UNIT/ML VIAL SQ SCH ×3 (09:12→18:07)
[2022-02-14] MEDS: INSULIN DETEMIR (LEVEMIR) 100 UNIT/ML SYR SQ SCH ×2 (09:12→21:30)
[2022-02-14] MEDS: RIVAROXABAN 2.5 MG TABLET PO SCH (09:14)
[2022-02-14] MEDS: LISINOPRIL-HCTZ 20-12.5 MG 1 EACH TAB PO SCH (09:14)
[2022-02-14] MEDS: NEOMYCIN-BACITRACIN-POLY OINT 14 GM TUBE TOPICAL SCH (09:15)
[2022-02-14 09:17] LABS: African American GFR (CKD) 117.4 (60.0-200.0); Albumin 3.7 g/dL (3.8-4.9); Albumin/Globulin Ratio 1.68 (1.60-3.17); Anion Gap 9.1 mmol/L (10.00-18.00); BUN/Creat Ratio 13.88 Ratio (12.00-20.00); Blood Urea Nitrogen 11.1 mg/dL (9.0-27.0); Calcium 9.1 mg/dL (8.7-10.3); Carbon Dioxide 25.9 mmol/L (20.0-27.5); Globulin 2.2 g/dL (1.6-3.3); Magnesium 1.8 mg/dL (1.5-2.4); Non-African American GFR(CKD) 101.3 (60.0-200.0); Phosphorus 3.6 mg/dL (2.4-5.1); Total Bilirubin 0.3 mg/dL (0.30-1.20); Total Protein 5.9 g/dL (6.2-8.2)
[2022-02-14] MEDS: SODIUM CHLORIDE 0.9% 1,000 ML IV SCH (10:28)
[2022-02-14 12:13] LABS: Glucose,Whole Blood 290 mg/dL (70-110)
--- NOTE | 2022-02-14 13:02 | P.PN ---
Subjective Progress Note Date: 02/14/22 No new complaints today. Ceftriaxone switched to unasyn. Pending debridement vs amputation. Gen: in no apparent distress, resting comfortably in bed Eyes: PERRL, no scleral injection or icterus HENT: normocephalic, atraumatic, good hearing acuity, moist mucous membranes Neck: no tracheal deviation, full range of motion Resp: good air exchange, breathing comfortably with no accessory muscle use, no tactile fremitus CVS: good distal perfusion x 4, no pitting edema GI: soft, NTTP, ND, no hepatosplenomegaly : no suprapubic tenderness, no CVAT, gale catheter not present MSK: no clubbing, no cyanosis, no noted contractures of extremities, ulcerations and erythema of the right lower extremity with foul-smelling pustular discharge Skin: no noted rashes, petechiae; temperature of skin is appropriate Neuro: moving all extremities without signs of weakness, CN II-XII intact Psych: cooperative, euthymic mood, insight and judgment intact Assessment/plan: Right lower extremity cellulitis versus osteomyelitis -Admit to inpatient -Vancomycin, unasyn -Right lower extremity x-ray -ID consultation -Orthopedic surgery consultation -Follow up wound culture, blood culture -Pain control -Wound care consult Uncontrolled diabetes mellitus, type 2 -A1c -Sugar checks before meals -insulin sliding scale, continue long-acting Levemir Hypertension Hyperlipidemia COPD without exacerbation Chronically anticoagulated -home medications reviewed and reconciled Objective - Vital Signs Vital signs: Vital Signs Temp 97.4 F L 02/14/22 05:32 Pulse 85 02/14/22 05:32 Resp 16 02/14/22 05:32 BP 127/78 02/14/22 05:32 Pulse Ox 100 02/14/22 05:32 FiO2 Intake & Output 02/13/22 02/14/22 02/14/22 18:59 06:59 18:59 Intake Total 600 830 Balance 600 830 Weight 89.358 kg Intake: Oral 600 830 Other: Voiding Method Toilet Toilet Toilet # Voids 3 3 - Labs CBC & Chem 7: 02/14/22 05:57 02/14/22 05:57 Labs: Abnormal Lab Results - Last 24 Hours (Table) 02/13/22 02/13/22 02/14/22 Range/Units 17:23 20:17 05:57 Hct 39.4 L (39.6-50.0) % Eosinophils # 0.38 H (0.04-0.35) X 10*3/uL Anion Gap (10.00-18.00) mmol/L Glucose (70-110) mg/dL POC Glucose (mg/dL) 119 H 160 H (70-110) mg/dL AST (14-35) U/L Total Protein (6.2-8.2) g/dL Albumin (3.8-4.9) g/dL 02/14/22 02/14/22 02/14/22 Range/Units 05:57 07:11 12:11 Hct (39.6-50.0) % Eosinophils # (0.04-0.35) X 10*3/uL Anion Gap 9.10 L (10.00-18.00) mmol/L Glucose 221 H (70-110) mg/dL POC Glucose (mg/dL) 217 H 290 H (70-110) mg/dL AST 11 L (14-35) U/L Total Protein 5.9 L (6.2-8.2) g/dL Albumin 3.7 L (3.8-4.9) g/dL Microbiology - Last 24 Hours (Table) 02/13/22 02:30 Blood Culture - Preliminary Blood No Growth after 24 hours 02/13/22 02:10 Blood Culture - Preliminary Blood No Growth after 24 hours 02/13/22 19:10 Anaerobic Culture - Preliminary Toe - Right Second 02/13/22 19:10 Wound Culture - Preliminary Toe - Right Second
[2022-02-14 13:39] VITALS: BMI 29.9
[2022-02-14 17:10] LABS: Glucose,Whole Blood 189 mg/dL (70-110)
--- NOTE | 2022-02-14 17:57 | P.GSCN ---
History of Present Illness History of present illness: 56-year-old diabetic male patient came to the emergency room he was treated for some time by outside facility for treatment wound to the right leg big toe and also there is a deep ulcer of the second toe with some mild redness noted. Patient had x-ray of the foot there are ulcer on the distal aspect of the toes with foci of air possibly gas gangrene I was consulted for Dr. Dorman's request Medical history history of diabetes no history of coronary artery disease Neck examination neck is supple no bruit appreciated Chest is clear good entry both lungs Abdomen soft nontender Vascular femorals are palpable bilateral dorsal pedis is 1+ the big toe has a ulcer with there are drainage and some purulent drainage noted with the redness on the dorsal aspect aspect of the big toe also there is a second toe has a ulcer Option discuss with the patient patient will need big toe amputation and dressed second toe debridement possible amputation we have arranged this worsened a morning nothing by mouth midnight Thursday night consent for right big toe dictation possible second toe of dictation risk and complication discussed patient understand we will proceed Past Medical History Past Medical History: Diabetes Mellitus, GERD/Reflux, Hypertension Additional Past Medical History / Comment(s): occ. pain with swallowing at times, hiatal hernia, dry skin, hx kidney stones History of Any Multi-Drug Resistant Organisms: MRSA Year Discovered:: 12/13/20 MDRO Source:: TOE Past Surgical History: Orthopedic Surgery Additional Past Surgical History / Comment(s): cystoscopy/stent in urethra, olga carpal tunnel, trigger finger left thumb, rt thumb surgery, shoulder surgery Past Anesthesia/Blood Transfusion Reactions: No Reported Reaction Additional Past Anesthesia/Blood Transfusion Reaction / Comm: dizziness Past Psychological History: No Psychological Hx Reported Smoking Status: Former smoker Past Alcohol Use History: None Reported Past Drug Use History: None Reported - Past Family History Mother Family Medical History: No Reported History Medications and Allergies Home Medications Medication Instructions Recorded Confirmed Type lisinopriL [Zestril] 20 mg PO DAILY 08/09/19 02/13/22 History Insulin Glargine,Hum.rec.anlog 25 unit SQ DIRECTED 09/13/20 02/13/22 History [Basaglar Kwikpen U-100] Omeprazole 20 mg PO BID 09/13/20 02/13/22 History Dulaglutide [Trulicity] 0.75 mg SQ DIRECTED 02/13/22 02/13/22 History Ezetimibe [Zetia] 10 mg PO DAILY 02/13/22 02/13/22 History Lisinopril-Hctz 20-12.5 mg 1 tab PO DAILY 02/13/22 02/13/22 History [Zestoretic 20-12.5] Potassium Chloride ER [K-Dur 20] 20 meq PO DIRECTED 02/13/22 02/13/22 History Pregabalin [Lyrica] 100 mg PO TID 02/13/22 02/13/22 History Rivaroxaban [Xarelto] 2.5 mg PO DIRECTED 02/13/22 02/13/22 History Allergies Allergy/AdvReac Type Severity Reaction Status Date / Time hydrocodone [From [facility]] AdvReac Heart Verified 02/13/22 09:27 burn, stomach pain metformin AdvReac Nausea & Verified 02/13/22 09:27 Vomiting & Diarrhea Bjhired-HTB-UaQ Reductase AdvReac liver Verified 02/13/22 09:27 Inhibitor problems [Mcrolfr-Qwe-Ncg Reductase Inhibitor] Surgical - Exam Vital Signs Temp Pulse Resp BP Pulse Ox 97.4 F L 98 20 130/60 98 02/13/22 02:18 02/13/22 02:18 02/13/22 02:18 02/13/22 02:18 02/13/22 02:18 Results - Labs 02/14/22 05:57 02/14/22 05:57 Abnormal Lab Results - Last 24 Hours (Table) 02/13/22 02/14/22 02/14/22 Range/Units 20:17 05:57 05:57 Hct 39.4 L (39.6-50.0) % Eosinophils # 0.38 H (0.04-0.35) X 10*3/uL Anion Gap 9.10 L (10.00-18.00) mmol/L Glucose 221 H (70-110) mg/dL POC Glucose (mg/dL) 160 H (70-110) mg/dL AST 11 L (14-35) U/L Total Protein 5.9 L (6.2-8.2) g/dL Albumin 3.7 L (3.8-4.9) g/dL 02/14/22 02/14/22 02/14/22 Range/Units 07:11 12:11 17:08 Hct (39.6-50.0) % Eosinophils # (0.04-0.35) X 10*3/uL Anion Gap (10.00-18.00) mmol/L Glucose (70-110) mg/dL POC Glucose (mg/dL) 217 H 290 H 189 H (70-110) mg/dL AST (14-35) U/L Total Protein (6.2-8.2) g/dL Albumin (3.8-4.9) g/dL Microbiology - Last 24 Hours (Table) 02/13/22 19:10 Gram Stain - Preliminary Toe - Right Second Wound Culture - Preliminary 02/13/22 02:30 Blood Culture - Preliminary Blood No Growth after 24 hours 02/13/22 02:10 Blood Culture - Preliminary Blood No Growth after 24 hours 02/13/22 19:10 Anaerobic Culture - Preliminary Toe - Right Second Diabetes panel 02/14/22 Range/Units 05:57 Sodium 138 (135-145) mmol/L Potassium 4.0 (3.5-5.5) mmol/L Chloride 103 (96-109) mmol/L Carbon Dioxide 25.9 (20.0-27.5) mmol/L BUN 11.1 (9.0-27.0) mg/dL Creatinine 0.8 (0.6-1.5) mg/dL Glucose 221 H (70-110) mg/dL Calcium 9.1 (8.7-10.3) mg/dL AST 11 L (14-35) U/L ALT 11 (10-49) U/L Alkaline Phosphatase 110 (41-126) U/L Total Protein 5.9 L (6.2-8.2) g/dL Albumin 3.7 L (3.8-4.9) g/dL Calcium panel 02/14/22 Range/Units 05:57 Calcium 9.1 (8.7-10.3) mg/dL Phosphorus 3.6 (2.4-5.1) mg/dL Albumin 3.7 L (3.8-4.9) g/dL Pituitary panel 02/14/22 Range/Units 05:57 Sodium 138 (135-145) mmol/L Potassium 4.0 (3.5-5.5) mmol/L Chloride 103 (96-109) mmol/L Carbon Dioxide 25.9 (20.0-27.5) mmol/L BUN 11.1 (9.0-27.0) mg/dL Creatinine 0.8 (0.6-1.5) mg/dL Glucose 221 H (70-110) mg/dL Calcium 9.1 (8.7-10.3) mg/dL Adrenal panel 02/14/22 Range/Units 05:57 Sodium 138 (135-145) mmol/L Potassium 4.0 (3.5-5.5) mmol/L Chloride 103 (96-109) mmol/L Carbon Dioxide 25.9 (20.0-27.5) mmol/L BUN 11.1 (9.0-27.0) mg/dL Creatinine 0.8 (0.6-1.5) mg/dL Glucose 221 H (70-110) mg/dL Calcium 9.1 (8.7-10.3) mg/dL Total Bilirubin 0.30 (0.30-1.20) mg/dL AST 11 L (14-35) U/L ALT 11 (10-49) U/L Alkaline Phosphatase 110 (41-126) U/L Total Protein 5.9 L (6.2-8.2) g/dL Albumin 3.7 L (3.8-4.9) g/dL
[2022-02-14 20:42] LABS: Glucose,Whole Blood 206 mg/dL (70-110)
--- NOTE | 2022-02-15 00:01 | P.PN ---
Subjective Progress Note Date: 02/14/22 Principal diagnosis: Right big toe diabetic foot infection Patient is a 56-year-old male with a past medical history significant for diabetes mellitus hypertension hyperlipidemia COPD and diabetic neuropathy patient is presenting to the hospital for increasing swelling redness to the right big toe concern for underlying osteomyelitis. On today's evaluation that is 02/14/2022, the patient denies having any fever or any chills, overall pain and discomfort to the right big toe slightly decreased in intensity, denies any chest pain shortness of breath or cough no abdominal pain or diarrhea Objective - Vital Signs Vital signs: Vital Signs Temp 97.8 F 02/14/22 13:00 Pulse 85 02/14/22 13:00 Resp 16 02/14/22 13:00 BP 128/76 02/14/22 13:00 Pulse Ox 99 02/14/22 13:00 FiO2 Intake & Output 02/13/22 02/14/22 02/14/22 18:59 06:59 18:59 Intake Total 600 830 Balance 600 830 Weight 89.358 kg Intake: Oral 600 830 Other: Voiding Method Toilet Toilet Toilet # Voids 3 3 - Exam GENERAL DESCRIPTION: Middle-aged male lying in bed in no distress RESPIRATORY SYSTEM: Unlabored breathing , decreased breath sounds at bases HEART: S1 S2 regular rate and rhythm , ABDOMEN: Soft , no tenderness EXTREMITIES: Right big toe swelling and redness and pustule on the plantar aspect no drainage - Labs CBC & Chem 7: 02/14/22 05:57 02/14/22 05:57 Labs: Abnormal Lab Results - Last 24 Hours (Table) 02/13/22 02/13/22 02/14/22 Range/Units 17:23 20:17 05:57 Hct 39.4 L (39.6-50.0) % Eosinophils # 0.38 H (0.04-0.35) X 10*3/uL Anion Gap (10.00-18.00) mmol/L Glucose (70-110) mg/dL POC Glucose (mg/dL) 119 H 160 H (70-110) mg/dL AST (14-35) U/L Total Protein (6.2-8.2) g/dL Albumin (3.8-4.9) g/dL 02/14/22 02/14/22 02/14/22 Range/Units 05:57 07:11 12:11 Hct (39.6-50.0) % Eosinophils # (0.04-0.35) X 10*3/uL Anion Gap 9.10 L (10.00-18.00) mmol/L Glucose 221 H (70-110) mg/dL POC Glucose (mg/dL) 217 H 290 H (70-110) mg/dL AST 11 L (14-35) U/L Total Protein 5.9 L (6.2-8.2) g/dL Albumin 3.7 L (3.8-4.9) g/dL Microbiology - Last 24 Hours (Table) 02/13/22 02:30 Blood Culture - Preliminary Blood No Growth after 24 hours 02/13/22 02:10 Blood Culture - Preliminary Blood No Growth after 24 hours 02/13/22 19:10 Anaerobic Culture - Preliminary Toe - Right Second 02/13/22 19:10 Wound Culture - Preliminary Toe - Right Second Assessment and Plan (1) Diabetic foot infection Current Visit: Yes Status: Acute Code(s): E11.628 - TYPE 2 DIABETES MELLITUS WITH OTHER SKIN COMPLICATIONS; L08.9 - LOCAL INFECTION OF THE SKIN AND SUBCUTANEOUS TISSUE, UNSP SNOMED Code(s): 711230675 Plan: 1patient with a right big toe diabetic foot infection in this patient with significant swelling redness and did have questions on the plantar aspect of the right big toe along with swelling redness of the right big toe with the x-ray did shows evidence of soft tissue swelling and air concerning for possible gangrene will need to cover for the polymicrobial marion usually associated with the diabetic foot infection 2await vascular surgical evaluation debridement and deep culture versus amputation 3patient to continue the vancomycin and Unasyn while waiting for the culture to finalize Time with Patient: Less than 30
[2022-02-15] MEDS ORDERED: VANCOMYCIN TROUGH DUE 1 EACH MISC MISCELLANE ONE (05:00)
[2022-02-15] MEDS: AMPICILLIN-SULBACTAM 3 GM in SODIUM CHLORIDE 0.9% 100 ML IVPB SCH ×4 (05:28→23:08)
[2022-02-15] MEDS: VANCOMYCIN 1,500 MG in SODIUM CHLORIDE 0.9% 500 ML 500 ML IVPB SCH (05:28)
[2022-02-15] MEDS: SODIUM CHLORIDE 0.9% 1,000 ML IV SCH ×2 (05:29→23:08)
[2022-02-15 07:34] LABS: Glucose,Whole Blood 306 mg/dL (70-110)
[2022-02-15] MEDS: PREGABALIN 100 MG CAP PO SCH ×3 (08:33→21:39)
[2022-02-15] MEDS: PANTOPRAZOLE 40 MG TABLET PO SCH (08:33)
[2022-02-15] MEDS: RIVAROXABAN 2.5 MG TABLET PO SCH (08:33)
[2022-02-15] MEDS: LISINOPRIL-HCTZ 20-12.5 MG 1 EACH TAB PO SCH (08:33)
[2022-02-15] MEDS: INSULIN ASPART (NovoLOG) 100 UNIT/ML VIAL SQ SCH ×3 (08:33→17:37)
[2022-02-15] MEDS: EZETIMIBE 10 MG TAB PO SCH (08:33)
[2022-02-15] MEDS: INSULIN DETEMIR (LEVEMIR) 100 UNIT/ML SYR SQ SCH ×2 (08:33→20:53)
[2022-02-15] MEDS: NEOMYCIN-BACITRACIN-POLY OINT 14 GM TUBE TOPICAL SCH (08:35)
[2022-02-15 10:54] LABS: African American GFR (CKD) 112.8 (60.0-200.0); Non-African American GFR(CKD) 97.3 (60.0-200.0)
[2022-02-15 12:14] LABS: Glucose,Whole Blood 156 mg/dL (70-110)
--- NOTE | 2022-02-15 12:47 | P.PN ---
Subjective Progress Note Date: 02/15/22 Seen by vascular who recommend great toe amputation, pending operation. Gen: in no apparent distress, resting comfortably in bed Eyes: PERRL, no scleral injection or icterus HENT: normocephalic, atraumatic, good hearing acuity, moist mucous membranes Neck: no tracheal deviation, full range of motion Resp: good air exchange, breathing comfortably with no accessory muscle use, no tactile fremitus CVS: good distal perfusion x 4, no pitting edema GI: soft, NTTP, ND, no hepatosplenomegaly : no suprapubic tenderness, no CVAT, gale catheter not present MSK: no clubbing, no cyanosis, no noted contractures of extremities, ulcerations and erythema of the right lower extremity with foul-smelling pustular discharge Skin: no noted rashes, petechiae; temperature of skin is appropriate Neuro: moving all extremities without signs of weakness, CN II-XII intact Psych: cooperative, euthymic mood, insight and judgment intact Assessment/plan: Right lower extremity cellulitis versus osteomyelitis -Admit to inpatient -Vancomycin, unasyn -Right lower extremity x-ray -ID consultation -Vascular surgery consultation -Podiatry consultation -Follow up wound culture, blood culture -Pain control -Wound care consult Uncontrolled diabetes mellitus, type 2 -A1c -Sugar checks before meals -insulin sliding scale, continue long-acting Levemir Hypertension Hyperlipidemia COPD without exacerbation Chronically anticoagulated -home medications reviewed and reconciled Objective - Vital Signs Vital signs: Vital Signs Temp 98.4 F 02/15/22 12:11 Pulse 82 02/15/22 12:11 Resp 18 02/15/22 12:11 BP 124/73 02/15/22 12:11 Pulse Ox 98 02/15/22 12:11 FiO2 Intake & Output 02/14/22 02/15/22 02/15/22 18:59 06:59 18:59 Intake Total 1080 1530 Balance 1080 1530 Weight 89.358 kg Intake: Intake, IV Titration 720 940 Amount Ampicillin-Sulbactam 3 gm 100 200 In Sodium Chloride 0.9% 100 ml @ 200 mls/hr IVPB Q6HR [facility] Rx#:[id number] Sodium Chloride 0.9% 1, 120 240 000 ml @ 20 mls/hr IV . Q24H [facility] Rx#:[id number] Vancomycin 1,500 mg In 500 500 Sodium Chloride 0.9% 500 ml 500 ml @ 167 mls/hr IVPB Q12H [facility] Rx#: [id number] Oral 360 590 Other: Voiding Method Toilet Toilet # Voids 2 - Labs CBC & Chem 7: 02/14/22 05:57 02/15/22 05:25 Labs: Abnormal Lab Results - Last 24 Hours (Table) 02/14/22 02/14/22 02/15/22 Range/Units 17:08 20:41 07:32 POC Glucose (mg/dL) 189 H 206 H 306 H (70-110) mg/dL 02/15/22 Range/Units 12:13 POC Glucose (mg/dL) 156 H (70-110) mg/dL Microbiology - Last 24 Hours (Table) 02/13/22 02:30 Blood Culture - Preliminary Blood No Growth after 48 hours 02/13/22 02:10 Blood Culture - Preliminary Blood No Growth after 48 hours 02/13/22 19:10 Gram Stain - Preliminary Toe - Right Second Wound Culture - Preliminary Gram Neg Bacilli Group D Enterococcus
[2022-02-15 17:10] LABS: Glucose,Whole Blood 229 mg/dL (70-110)
[2022-02-15] MEDS: VANCOMYCIN 1,750 MG in SODIUM CHLORIDE 0.9% 500 ML 500 ML IVPB SCH (17:28)
[2022-02-15 20:53] LABS: Glucose,Whole Blood 190 mg/dL (70-110)
[2022-02-16] MEDS: AMPICILLIN-SULBACTAM 3 GM in SODIUM CHLORIDE 0.9% 100 ML IVPB SCH ×4 (05:28→23:48)
[2022-02-16] MEDS: VANCOMYCIN 1,750 MG in SODIUM CHLORIDE 0.9% 500 ML 500 ML IVPB SCH (05:28)
[2022-02-16 07:26] LABS: Glucose,Whole Blood 330 mg/dL (70-110)
[2022-02-16] MEDS: INSULIN DETEMIR (LEVEMIR) 100 UNIT/ML SYR SQ SCH ×2 (08:06→20:29)
[2022-02-16] MEDS: INSULIN ASPART (NovoLOG) 100 UNIT/ML VIAL SQ SCH ×3 (08:06→18:09)
[2022-02-16] MEDS: PANTOPRAZOLE 40 MG TABLET PO SCH (08:07)
[2022-02-16] MEDS: PREGABALIN 100 MG CAP PO SCH ×3 (08:07→21:17)
[2022-02-16] MEDS: EZETIMIBE 10 MG TAB PO SCH (08:07)
[2022-02-16] MEDS: NEOMYCIN-BACITRACIN-POLY OINT 14 GM TUBE TOPICAL SCH (08:07)
[2022-02-16] MEDS: LISINOPRIL-HCTZ 20-12.5 MG 1 EACH TAB PO SCH (08:07)
[2022-02-16] MEDS ORDERED: SODIUM CHLORIDE 0.9% 1,000 ML IV ONE (09:38)
[2022-02-16] MEDS ORDERED: MIDAZOLAM 2 MG/2 ML VIAL ONE (09:38)
[2022-02-16] MEDS ORDERED: LIDOCAINE 1% INJ 10MG/ML (30 ML VIAL-PF) SQ ONE (09:38)
[2022-02-16] MEDS ORDERED: PROPOFOL 10 MG/ML 20 ML VIAL IV ONE (09:38)
[2022-02-16 09:59] LABS: African American GFR (CKD) 111.8 (60.0-200.0); Non-African American GFR(CKD) 96.5 (60.0-200.0)
[2022-02-16 10:46] LABS: Glucose,Whole Blood 218 mg/dL (70-110)
[2022-02-16] MEDS: SODIUM CHLORIDE 0.9% 1,000 ML IV SCH (11:19)
[2022-02-16 11:39] LABS: Glucose,Whole Blood 170 mg/dL (70-110)
--- NOTE | 2022-02-16 12:53 | P.PN ---
Subjective Progress Note Date: 02/16/22 Pt doing well s/p right great toe amputation, has no complaints. Gen: in no apparent distress, resting comfortably in bed Eyes: PERRL, no scleral injection or icterus HENT: normocephalic, atraumatic, good hearing acuity, moist mucous membranes Neck: no tracheal deviation, full range of motion Resp: good air exchange, breathing comfortably with no accessory muscle use, no tactile fremitus CVS: good distal perfusion x 4, no pitting edema GI: soft, NTTP, ND, no hepatosplenomegaly : no suprapubic tenderness, no CVAT, gale catheter not present MSK: no clubbing, no cyanosis, no noted contractures of extremities, ulcerations and erythema of the right lower extremity with foul-smelling pustular discharge Skin: no noted rashes, petechiae; temperature of skin is appropriate Neuro: moving all extremities without signs of weakness, CN II-XII intact Psych: cooperative, euthymic mood, insight and judgment intact Assessment/plan: Right lower extremity cellulitis versus osteomyelitis -Admit to inpatient -Vancomycin, unasyn -Right lower extremity x-ray -ID consultation -Vascular surgery consultation, now s/p right great toe amputation on 02/16 -Podiatry consultation -Follow up wound culture, blood culture -Pain control -Wound care consult Uncontrolled diabetes mellitus, type 2 -A1c -Sugar checks before meals -insulin sliding scale, continue long-acting Levemir Hypertension Hyperlipidemia COPD without exacerbation Chronically anticoagulated -home medications reviewed and reconciled Objective - Vital Signs Vital signs: Vital Signs Temp 97.7 F 02/16/22 11:35 Pulse 68 02/16/22 11:35 Resp 16 02/16/22 11:35 BP 119/71 02/16/22 11:35 Pulse Ox 98 02/16/22 11:35 FiO2 Intake & Output 02/15/22 02/16/22 02/16/22 18:59 06:59 18:59 Intake Total 940 240 550 Output Total 10 Balance 940 240 540 Intake: IV 550 Intake, IV Titration 940 Amount Ampicillin-Sulbactam 3 gm 200 In Sodium Chloride 0.9% 100 ml @ 200 mls/hr IVPB Q6HR [facility] Rx#:[id number] Sodium Chloride 0.9% 1, 240 000 ml @ 20 mls/hr IV . Q24H [facility] Rx#:[id number] Vancomycin 1,750 mg In 500 Sodium Chloride 0.9% 500 ml 500 ml @ 167 mls/hr IVPB Q12H [facility] Rx#: [id number] Oral 240 Output: Estimated Blood Loss 10 Other: Voiding Method Toilet # Voids 2 - Labs CBC & Chem 7: 02/14/22 05:57 02/16/22 05:37 Labs: Abnormal Lab Results - Last 24 Hours (Table) 02/14/22 02/15/22 02/15/22 Range/Units 05:57 17:08 20:52 POC Glucose (mg/dL) 229 H 190 H (70-110) mg/dL Hemoglobin A1c 8.4 H (0.0-6.0) % 02/16/22 02/16/22 02/16/22 Range/Units 07:24 10:45 11:38 POC Glucose (mg/dL) 330 H 218 H 170 H (70-110) mg/dL Hemoglobin A1c (0.0-6.0) % Microbiology - Last 24 Hours (Table) 02/13/22 02:10 Blood Culture - Preliminary Blood No Growth after 72 hours 02/13/22 02:30 Blood Culture - Preliminary Blood No Growth after 72 hours 02/13/22 19:10 Anaerobic Culture - Preliminary Toe - Right Second 02/13/22 19:10 Gram Stain - Final Toe - Right Second Wound Culture - Final Klebsiella oxytoca Enterococcus faecalis
[2022-02-16] MEDS: RIVAROXABAN 2.5 MG TABLET PO SCH (12:54)
[2022-02-16] MEDS: MORPHINE SULFATE 4 MG/ML SYRINGE IV PRN ×2 (15:52→20:29)
--- NOTE | 2022-02-16 17:14 | P.PN ---
Subjective Progress Note Date: 02/15/22 Principal diagnosis: Right big toe diabetic foot infection Patient is a 56-year-old male with a past medical history significant for diabetes mellitus hypertension hyperlipidemia COPD and diabetic neuropathy patient is presenting to the hospital for increasing swelling redness to the right big toe concern for underlying osteomyelitis. On today's evaluation that is 02/15/2022, the patient remains to be afebrile, the patient pain and discomfort to the right big toe has decreased in intensity, the patient denies any chest pain shortness of breath or cough no abdominal pain or diarrhea Objective - Vital Signs Vital signs: Vital Signs Temp 98.4 F 02/15/22 12:11 Pulse 82 02/15/22 12:11 Resp 18 02/15/22 12:11 BP 124/73 02/15/22 12:11 Pulse Ox 98 02/15/22 12:11 FiO2 Intake & Output 02/14/22 02/15/22 02/15/22 18:59 06:59 18:59 Intake Total 1080 1530 Balance 1080 1530 Weight 89.358 kg Intake: Intake, IV Titration 720 940 Amount Ampicillin-Sulbactam 3 gm 100 200 In Sodium Chloride 0.9% 100 ml @ 200 mls/hr IVPB Q6HR [facility] Rx#:[id number] Sodium Chloride 0.9% 1, 120 240 000 ml @ 20 mls/hr IV . Q24H [facility] Rx#:[id number] Vancomycin 1,500 mg In 500 500 Sodium Chloride 0.9% 500 ml 500 ml @ 167 mls/hr IVPB Q12H [facility] Rx#: [id number] Oral 360 590 Other: Voiding Method Toilet Toilet # Voids 2 - Exam GENERAL DESCRIPTION: Middle-aged male lying in bed in no distress RESPIRATORY SYSTEM: Unlabored breathing , decreased breath sounds at bases HEART: S1 S2 regular rate and rhythm , ABDOMEN: Soft , no tenderness EXTREMITIES: Right big toe swelling and redness and pustule on the plantar aspect no drainage - Labs CBC & Chem 7: 02/14/22 05:57 02/16/22 05:37 Labs: Abnormal Lab Results - Last 24 Hours (Table) 02/14/22 02/14/22 02/14/22 Range/Units 05:57 17:08 20:41 POC Glucose (mg/dL) 189 H 206 H (70-110) mg/dL Hemoglobin A1c 8.4 H (0.0-6.0) % 02/15/22 02/15/22 Range/Units 07:32 12:13 POC Glucose (mg/dL) 306 H 156 H (70-110) mg/dL Hemoglobin A1c (0.0-6.0) % Microbiology - Last 24 Hours (Table) 02/13/22 02:30 Blood Culture - Preliminary Blood No Growth after 48 hours 02/13/22 02:10 Blood Culture - Preliminary Blood No Growth after 48 hours 02/13/22 19:10 Gram Stain - Preliminary Toe - Right Second Wound Culture - Preliminary Gram Neg Bacilli Group D Enterococcus Assessment and Plan (1) Diabetic foot infection Current Visit: Yes Status: Acute Code(s): E11.628 - TYPE 2 DIABETES MELLITUS WITH OTHER SKIN COMPLICATIONS; L08.9 - LOCAL INFECTION OF THE SKIN AND SUBCUTANEOUS TISSUE, UNSP SNOMED Code(s): 601008038 Plan: 1patient with a right big toe diabetic foot infection in this patient with significant swelling redness and did have questions on the plantar aspect of the right big toe along with swelling redness of the right big toe with the x-ray did shows evidence of soft tissue swelling and air concerning for possible gangrene will need to cover for the polymicrobial marion usually associated with the diabetic foot infection 2the patient is status post vascular surgical evaluation and is pending for possible amputation of the right big toe tomorrow 3patient to continue the vancomycin and Unasyn while waiting for the culture to finalize and monitor clinical course closely Time with Patient: Less than 30
--- NOTE | 2022-02-16 17:15 | P.PN ---
Subjective Progress Note Date: 02/16/22 Principal diagnosis: Right big toe diabetic foot infection Patient is a 56-year-old male with a past medical history significant for diabetes mellitus hypertension hyperlipidemia COPD and diabetic neuropathy patient is presenting to the hospital for increasing swelling redness to the right big toe concern for underlying osteomyelitis. The patient is status post right big toe amputation completed on 02/16/2022 On today's evaluation that is 02/16/2022, the patient continues to be afebrile, the patient pain and discomfort to the right big toe amputation site is curr ently controlled, the patient denies any chest pain shortness of breath or cough no abdominal pain or diarrhea with antibiotic therapy Objective - Vital Signs Vital signs: Vital Signs Temp 97.7 F 02/16/22 11:35 Pulse 66 02/16/22 12:38 Resp 16 02/16/22 12:38 BP 131/81 02/16/22 12:38 Pulse Ox 100 02/16/22 12:38 FiO2 Intake & Output 02/15/22 02/16/22 02/16/22 18:59 06:59 18:59 Intake Total 940 240 550 Output Total 10 Balance 940 240 540 Intake: IV 550 Intake, IV Titration 940 Amount Ampicillin-Sulbactam 3 gm 200 In Sodium Chloride 0.9% 100 ml @ 200 mls/hr IVPB Q6HR [facility] Rx#:[id number] Sodium Chloride 0.9% 1, 240 000 ml @ 20 mls/hr IV . Q24H [facility] Rx#:[id number] Vancomycin 1,750 mg In 500 Sodium Chloride 0.9% 500 ml 500 ml @ 167 mls/hr IVPB Q12H [facility] Rx#: [id number] Oral 240 Output: Estimated Blood Loss 10 Other: Voiding Method Toilet # Voids 2 - Exam GENERAL DESCRIPTION: Middle-aged male lying in bed in no distress RESPIRATORY SYSTEM: Unlabored breathing , decreased breath sounds at bases HEART: S1 S2 regular rate and rhythm , ABDOMEN: Soft , no tenderness EXTREMITIES: Right big toe amputation site is currently dressed no drainage on the dressing - Labs CBC & Chem 7: 02/14/22 05:57 02/16/22 05:37 Labs: Abnormal Lab Results - Last 24 Hours (Table) 02/15/22 02/16/22 02/16/22 Range/Units 20:52 07:24 10:45 POC Glucose (mg/dL) 190 H 330 H 218 H (70-110) mg/dL 02/16/22 Range/Units 11:38 POC Glucose (mg/dL) 170 H (70-110) mg/dL Microbiology - Last 24 Hours (Table) 02/13/22 02:10 Blood Culture - Preliminary Blood No Growth after 72 hours 02/13/22 02:30 Blood Culture - Preliminary Blood No Growth after 72 hours 02/13/22 19:10 Anaerobic Culture - Preliminary Toe - Right Second 02/13/22 19:10 Gram Stain - Final Toe - Right Second Wound Culture - Final Klebsiella oxytoca Enterococcus faecalis Assessment and Plan (1) Diabetic foot infection Current Visit: Yes Status: Acute Code(s): E11.628 - TYPE 2 DIABETES MELLITUS WITH OTHER SKIN COMPLICATIONS; L08.9 - LOCAL INFECTION OF THE SKIN AND SUBCUTANEOUS TISSUE, UNSP SNOMED Code(s): 196925444 Plan: 1patient with a right big toe diabetic foot infection in this patient with significant swelling redness and did have questions on the plantar aspect of the right big toe along with swelling redness of the right big toe with the x-ray did shows evidence of soft tissue swelling and air concerning for possible gangrene will need to cover for the polymicrobial marion usually associated with the diabetic foot infection 2the patient is status post vascular surgical evaluation and amputation of the right big toe completed 02/16/2022 3patient local cultures came back positive with enterococcus and Klebsiella. Continue patient on Unasyn and discontinue vancomycin Time with Patient: Less than 30
[2022-02-16 17:20] LABS: Glucose,Whole Blood 170 mg/dL (70-110)
[2022-02-16 20:17] LABS: Glucose,Whole Blood 155 mg/dL (70-110)
[2022-02-17] MEDS: MORPHINE SULFATE 4 MG/ML SYRINGE IV PRN ×6 (00:33→21:35)
[2022-02-17] MEDS: AMPICILLIN-SULBACTAM 3 GM in SODIUM CHLORIDE 0.9% 100 ML IVPB SCH ×4 (05:33→23:52)
[2022-02-17 07:07] LABS: Glucose,Whole Blood 128 mg/dL (70-110)
[2022-02-17 08:56] LABS: African American GFR (CKD) 117.4 (60.0-200.0); Non-African American GFR(CKD) 101.3 (60.0-200.0)
[2022-02-17] MEDS: INSULIN ASPART (NovoLOG) 100 UNIT/ML VIAL SQ SCH ×3 (09:40→17:14)
[2022-02-17] MEDS: PREGABALIN 100 MG CAP PO SCH ×3 (09:49→21:32)
[2022-02-17] MEDS: INSULIN DETEMIR (LEVEMIR) 100 UNIT/ML SYR SQ SCH ×2 (09:49→20:39)
[2022-02-17] MEDS: EZETIMIBE 10 MG TAB PO SCH (09:49)
[2022-02-17] MEDS: PANTOPRAZOLE 40 MG TABLET PO SCH (09:49)
[2022-02-17] MEDS: LISINOPRIL-HCTZ 20-12.5 MG 1 EACH TAB PO SCH (09:50)
[2022-02-17] MEDS: RIVAROXABAN 2.5 MG TABLET PO SCH (09:50)
[2022-02-17 11:15] LABS: Glucose,Whole Blood 158 mg/dL (70-110)
--- NOTE | 2022-02-17 12:59 | P.PN ---
Subjective Progress Note Date: 02/17/22 Pt doing well s/p right great toe amputation, has no complaints. Ongoing IV abx. Discharge planning depends on need for IV abx on discharge. Gen: in no apparent distress, resting comfortably in bed Eyes: PERRL, no scleral injection or icterus HENT: normocephalic, atraumatic, good hearing acuity, moist mucous membranes Neck: no tracheal deviation, full range of motion Resp: good air exchange, breathing comfortably with no accessory muscle use, no tactile fremitus CVS: good distal perfusion x 4, no pitting edema GI: soft, NTTP, ND, no hepatosplenomegaly : no suprapubic tenderness, no CVAT, gale catheter not present MSK: no clubbing, no cyanosis, no noted contractures of extremities, ulcerations and erythema of the right lower extremity with foul-smelling pustular discharge Skin: no noted rashes, petechiae; temperature of skin is appropriate Neuro: moving all extremities without signs of weakness, CN II-XII intact Psych: cooperative, euthymic mood, insight and judgment intact Assessment/plan: Right lower extremity cellulitis versus osteomyelitis -Admit to inpatient -Vancomycin, unasyn -Right lower extremity x-ray -ID consultation -Vascular surgery consultation, now s/p right great toe amputation on 02/16 -Podiatry consultation -Follow up wound culture, blood culture -Pain control -Wound care consult Uncontrolled diabetes mellitus, type 2 -A1c -Sugar checks before meals -insulin sliding scale, continue long-acting Levemir Hypertension Hyperlipidemia COPD without exacerbation Chronically anticoagulated -home medications reviewed and reconciled Objective - Vital Signs Vital signs: Vital Signs Temp 99.5 F 02/17/22 11:34 Pulse 79 02/17/22 11:34 Resp 16 02/17/22 11:34 BP 115/70 02/17/22 11:34 Pulse Ox 99 02/17/22 11:34 FiO2 Intake & Output 02/16/22 02/17/22 02/17/22 18:59 06:59 18:59 Intake Total 910 1040 Output Total 10 Balance 900 1040 Weight 89.358 kg Intake: IV 550 Intake, IV Titration 440 Amount Ampicillin-Sulbactam 3 gm 200 In Sodium Chloride 0.9% 100 ml @ 200 mls/hr IVPB Q6HR [facility] Rx#:[id number] Sodium Chloride 0.9% 1, 240 000 ml @ 20 mls/hr IV . Q24H [facility] Rx#:[id number] Oral 360 600 Output: Estimated Blood Loss 10 Other: Voiding Method Toilet Toilet # Voids 4 3 - Labs CBC & Chem 7: 02/14/22 05:57 02/17/22 05:11 Labs: Abnormal Lab Results - Last 24 Hours (Table) 02/16/22 02/16/22 02/17/22 Range/Units 17:19 20:14 07:05 POC Glucose (mg/dL) 170 H 155 H 128 H (70-110) mg/dL 02/17/22 Range/Units 11:14 POC Glucose (mg/dL) 158 H (70-110) mg/dL Microbiology - Last 24 Hours (Table) 02/16/22 10:30 Gram Stain - Preliminary Foot - Right Wound Culture - Preliminary 02/13/22 02:30 Blood Culture - Preliminary Blood No Growth after 96 hours 02/13/22 02:10 Blood Culture - Preliminary Blood No Growth after 96 hours 02/16/22 10:30 Anaerobic Culture - Preliminary Foot - Right
[2022-02-17] MEDS: NEOMYCIN-BACITRACIN-POLY OINT 14 GM TUBE TOPICAL SCH (16:26)
[2022-02-17 17:05] LABS: Glucose,Whole Blood 235 mg/dL (70-110)
--- NOTE | 2022-02-17 19:23 | OP ---
OPERATIVE REPORT PREOPERATIVE DIAGNOSIS: Infected wet gangrene of the right foot big toe. POSTOPERATIVE DIAGNOSIS: Infected wet gangrene of the right foot big toe. PROCEDURE PERFORMED: Ray amputation of the right foot big toe. DESCRIPTION OF PROCEDURE: This patient has a history of gangrene, and the patient came with marked redness and ulceration noted on the plantar and dorsal aspects with some drainage. The patient was brought to the operating room. Under local IV sedation, right foot was prepped and draped in appropriate sterile manner. Incision was made down to the dorsal aspect of the foot. The elliptical incision was deepened through the skin, fat, and fascia. On the plantar aspect, this incision was extended to the plantar aspect and deepened through the skin, fat, and fascia. Extensor and flexor tendons were divided. Ligaments were also divided until we reached the metatarsophalangeal joint. An extensive infection was noted at the metatarsophalangeal joint area with devitalized tissue. All the devitalized tissue was excised with a knife. We used the hand saw to divide the head of the metatarsal bone, which was removed. Hemostasis was controlled by 5-0 Prolene, and we irrigated the wound copiously with hydrogen peroxide and saline. Subcutaneous tissue was approximated with 0 Vicryl with an interrupted sutures. Monocryl suture was used to close the skin subcuticularly. We used a few interrupted sutures of 3-0 nylon for the skin. Dressing was applied. The patient tolerated the procedure well and transferred to the recovery room in satisfactory condition. BLOOD LOSS: Less than 50 mL. MMODL / IJN: [id number] /
[2022-02-17 20:38] LABS: Glucose,Whole Blood 232 mg/dL (70-110)
[2022-02-17] MEDS: SODIUM CHLORIDE 0.9% 1,000 ML IV SCH (21:33)
[2022-02-18] MEDS: MORPHINE SULFATE 4 MG/ML SYRINGE IV PRN ×4 (05:03→17:49)
[2022-02-18] MEDS: AMPICILLIN-SULBACTAM 3 GM in SODIUM CHLORIDE 0.9% 100 ML IVPB SCH ×4 (05:05→23:22)
--- NOTE | 2022-02-18 07:16 | PN ---
PROGRESS NOTE The patient had a ray amputation of right foot big toe for wet gangrene of the foot. Today, we have changed the dressing. Incision site is clean. We will change next dressing on Thursday. Continue with IV antibiotic. MMODL / IJN: [id number] /
[2022-02-18 07:34] LABS: Glucose,Whole Blood 210 mg/dL (70-110)
[2022-02-18] MEDS: PREGABALIN 100 MG CAP PO SCH ×3 (08:54→21:34)
[2022-02-18] MEDS: LISINOPRIL-HCTZ 20-12.5 MG 1 EACH TAB PO SCH (08:54)
[2022-02-18] MEDS: NEOMYCIN-BACITRACIN-POLY OINT 14 GM TUBE TOPICAL SCH (08:54)
[2022-02-18] MEDS: EZETIMIBE 10 MG TAB PO SCH (08:54)
[2022-02-18] MEDS: INSULIN DETEMIR (LEVEMIR) 100 UNIT/ML SYR SQ SCH ×2 (08:54→21:34)
[2022-02-18] MEDS: INSULIN ASPART (NovoLOG) 100 UNIT/ML VIAL SQ SCH ×3 (08:54→17:49)
[2022-02-18] MEDS: PANTOPRAZOLE 40 MG TABLET PO SCH (08:54)
[2022-02-18] MEDS: RIVAROXABAN 2.5 MG TABLET PO SCH (08:54)
[2022-02-18 09:22] LABS: African American GFR (CKD) 111.8 (60.0-200.0); Non-African American GFR(CKD) 96.5 (60.0-200.0)
[2022-02-18 11:40] LABS: Glucose,Whole Blood 266 mg/dL (70-110)
--- NOTE | 2022-02-18 13:15 | P.PN ---
Subjective Progress Note Date: 02/18/22 Patient having any acute complaints. Discussed the case with infectious disease. Objective - Vital Signs Vital signs: Vital Signs Temp 98.9 F 02/18/22 11:14 Pulse 86 02/18/22 11:14 Resp 18 02/18/22 11:14 BP 130/78 02/18/22 11:14 Pulse Ox 98 02/18/22 11:14 FiO2 Intake & Output 02/17/22 02/18/22 02/18/22 18:59 06:59 18:59 Intake Total 112 1125 Balance 112 1125 Weight 89.358 kg Intake: Intake, IV Titration 112 400 Amount Ampicillin-Sulbactam 3 gm 100 200 In Sodium Chloride 0.9% 100 ml @ 200 mls/hr IVPB Q6HR [facility] Rx#:[id number] Sodium Chloride 0.9% 1, 12 000 ml @ 0 mls/hr IV .STK -[facility] ONE Rx#:[id number] Sodium Chloride 0.9% 1, 200 000 ml @ 20 mls/hr IV . Q24H [facility] Rx#:[id number] Oral 725 Other: Voiding Method Toilet Toilet # Voids 2 - Exam General examination - Alert and Oriented 3 in NAD Heart - + S1S2 no murmurs Lungs - Clear to auscultation Abdomen soft NT ND +ve BS Extremities - No edema, right foot amputation with dressing that is intact and dry PROFESSOR OF THEOLOGY - Moving all 4 extremities spontaneously Psych - Calm and cooperative - Labs CBC & Chem 7: 02/14/22 05:57 02/18/22 05:50 Labs: Abnormal Lab Results - Last 24 Hours (Table) 02/17/22 02/17/22 02/18/22 Range/Units 17:04 20:22 07:29 POC Glucose (mg/dL) 235 H 232 H 210 H (70-110) mg/dL 02/18/22 Range/Units 11:18 POC Glucose (mg/dL) 266 H (70-110) mg/dL Microbiology - Last 24 Hours (Table) 02/16/22 10:30 Gram Stain - Final Foot - Right Wound Culture - Final 02/13/22 02:30 Blood Culture - Preliminary Blood No Growth after 120 hours 02/13/22 02:10 Blood Culture - Preliminary Blood No Growth after 120 hours Assessment and Plan Assessment: Right lower extremity cellulitis versus osteomyelitis -Wound cultures grew Klebsiella oxytocin and Enterococcus faecalis -resume unasyn -ID con board -Vascular surgery consultation, now s/p right great toe amputation on 02/16 -Blood cultures are negative to date -Pain control -Wound care consult -We will plan on discharging patient Augmentin tomorrow as recommended by infectious disease Uncontrolled diabetes mellitus, type 2 -Sugar checks before meals -insulin sliding scale, continue long-acting Levemir Hypertension Hyperlipidemia COPD without exacerbation Chronically anticoagulated -home medications reviewed and reconciled
[2022-02-18 17:03] LABS: Glucose,Whole Blood 265 mg/dL (70-110)
[2022-02-18] MEDS: SODIUM CHLORIDE 0.9% 1,000 ML IV SCH (21:34)
--- NOTE | 2022-02-18 22:54 | P.PN ---
Subjective Progress Note Date: 02/17/22 Principal diagnosis: Right big toe diabetic foot infection Patient is a 56-year-old male with a past medical history significant for diabetes mellitus hypertension hyperlipidemia COPD and diabetic neuropathy patient is presenting to the hospital for increasing swelling redness to the right big toe concern for underlying osteomyelitis. The patient is status post right big toe amputation completed on 02/16/2022 On today's evaluation that is 02/17/2022, the patient remains to be afebrile, the patient pain and discomfort to the right big toe amputation site has decre ased intensity, the patient denies any chest pain shortness of breath or cough no abdominal pain or diarrhea with antibiotic therapy Objective - Vital Signs Vital signs: Vital Signs Temp 99.5 F 02/17/22 11:34 Pulse 79 02/17/22 11:34 Resp 16 02/17/22 11:34 BP 115/70 02/17/22 11:34 Pulse Ox 99 02/17/22 11:34 FiO2 Intake & Output 02/16/22 02/17/22 02/17/22 18:59 06:59 18:59 Intake Total 910 1040 Output Total 10 Balance 900 1040 Weight 89.358 kg Intake: IV 550 Intake, IV Titration 440 Amount Ampicillin-Sulbactam 3 gm 200 In Sodium Chloride 0.9% 100 ml @ 200 mls/hr IVPB Q6HR [facility] Rx#:[id number] Sodium Chloride 0.9% 1, 240 000 ml @ 20 mls/hr IV . Q24H [facility] Rx#:[id number] Oral 360 600 Output: Estimated Blood Loss 10 Other: Voiding Method Toilet Toilet # Voids 4 3 - Exam GENERAL DESCRIPTION: Middle-aged male lying in bed in no distress RESPIRATORY SYSTEM: Unlabored breathing , decreased breath sounds at bases HEART: S1 S2 regular rate and rhythm , ABDOMEN: Soft , no tenderness EXTREMITIES: Right big toe amputation site incision is intact did have some surrounding swelling and redness no drainage - Labs CBC & Chem 7: 02/14/22 05:57 02/18/22 05:50 Labs: Abnormal Lab Results - Last 24 Hours (Table) 02/16/22 02/16/22 02/17/22 Range/Units 17:19 20:14 07:05 POC Glucose (mg/dL) 170 H 155 H 128 H (70-110) mg/dL 02/17/22 Range/Units 11:14 POC Glucose (mg/dL) 158 H (70-110) mg/dL Microbiology - Last 24 Hours (Table) 02/16/22 10:30 Gram Stain - Preliminary Foot - Right Wound Culture - Preliminary 02/13/22 02:30 Blood Culture - Preliminary Blood No Growth after 96 hours 02/13/22 02:10 Blood Culture - Preliminary Blood No Growth after 96 hours 02/16/22 10:30 Anaerobic Culture - Preliminary Foot - Right Assessment and Plan (1) Diabetic foot infection Current Visit: Yes Status: Acute Code(s): E11.628 - TYPE 2 DIABETES MELLITUS WITH OTHER SKIN COMPLICATIONS; L08.9 - LOCAL INFECTION OF THE SKIN AND SUBCUTANEOUS TISSUE, UNSP SNOMED Code(s): 729825830 Plan: 1patient with a right big toe diabetic foot infection in this patient with significant swelling redness and did have questions on the plantar aspect of the right big toe along with swelling redness of the right big toe with the x-ray did shows evidence of soft tissue swelling and air concerning for possible gangrene will need to cover for the polymicrobial marion usually associated with the diabetic foot infection 2the patient is status post vascular surgical evaluation and amputation of the right big toe completed 02/16/2022 3patient local cultures came back positive with enterococcus and Klebsiella. Patient did have inflammatory changes on his amputation site we will continue patient on Unasyn for another 24-48 hour before switching him to oral Time with Patient: Less than 30
--- NOTE | 2022-02-18 22:55 | P.PN ---
Subjective Progress Note Date: 02/18/22 Principal diagnosis: Right big toe diabetic foot infection Patient is a 56-year-old male with a past medical history significant for diabetes mellitus hypertension hyperlipidemia COPD and diabetic neuropathy patient is presenting to the hospital for increasing swelling redness to the right big toe concern for underlying osteomyelitis. The patient is status post right big toe amputation completed on 02/16/2022 On today's evaluation that is 02/18/2022, the patient continues to be afebrile, the patient pain to the right big toe amputation site has decreased intensity, the patient denies any chest pain shortness of breath or cough no abdominal pain or diarrhea, feeling slightly better Objective - Vital Signs Vital signs: Vital Signs Temp 98.9 F 02/18/22 11:14 Pulse 86 02/18/22 11:14 Resp 18 02/18/22 11:14 BP 130/78 02/18/22 11:14 Pulse Ox 98 02/18/22 11:14 FiO2 Intake & Output 02/17/22 02/18/22 02/18/22 18:59 06:59 18:59 Intake Total 112 1125 Balance 112 1125 Weight 89.358 kg Intake: Intake, IV Titration 112 400 Amount Ampicillin-Sulbactam 3 gm 100 200 In Sodium Chloride 0.9% 100 ml @ 200 mls/hr IVPB Q6HR [facility] Rx#:[id number] Sodium Chloride 0.9% 1, 12 000 ml @ 0 mls/hr IV .STK -[facility] Rx#:[id number] Sodium Chloride 0.9% 1, 200 000 ml @ 20 mls/hr IV . Q24H [facility] Rx#:[id number] Oral 725 Other: Voiding Method Toilet Toilet # Voids 2 - Exam GENERAL DESCRIPTION: Middle-aged male lying in bed in no distress RESPIRATORY SYSTEM: Unlabored breathing , decreased breath sounds at bases HEART: S1 S2 regular rate and rhythm , ABDOMEN: Soft , no tenderness EXTREMITIES: Right big toe amputation site incision is intact did have some surrounding swelling and redness no drainage - Labs CBC & Chem 7: 02/14/22 05:57 02/18/22 05:50 Labs: Abnormal Lab Results - Last 24 Hours (Table) 02/17/22 02/17/22 02/18/22 Range/Units 17:04 20:22 07:29 POC Glucose (mg/dL) 235 H 232 H 210 H (70-110) mg/dL 02/18/22 Range/Units 11:18 POC Glucose (mg/dL) 266 H (70-110) mg/dL Microbiology - Last 24 Hours (Table) 02/16/22 10:30 Gram Stain - Final Foot - Right Wound Culture - Final 02/13/22 02:30 Blood Culture - Preliminary Blood No Growth after 120 hours 02/13/22 02:10 Blood Culture - Preliminary Blood No Growth after 120 hours Assessment and Plan (1) Diabetic foot infection Current Visit: Yes Status: Acute Code(s): E11.628 - TYPE 2 DIABETES MELLITUS WITH OTHER SKIN COMPLICATIONS; L08.9 - LOCAL INFECTION OF THE SKIN AND SUBCUTANEOUS TISSUE, UNSP SNOMED Code(s): 184346665 Plan: 1patient with a right big toe diabetic foot infection in this patient with significant swelling redness and did have questions on the plantar aspect of the right big toe along with swelling redness of the right big toe with the x-ray did shows evidence of soft tissue swelling and air concerning for possible gangrene will need to cover for the polymicrobial marion usually associated with the diabetic foot infection 2the patient is status post vascular surgical evaluation and amputation of the right big toe completed 02/16/2022 3patient local cultures came back positive with enterococcus and Klebsiella. Patient did have inflammatory changes on his amputation site we will continue patient on Unasyn for another 24 hour before switching him to oral Augmentin 2 weeks on discharge this was discussed with the primary team Time with Patient: Less than 30
[2022-02-18 23:20] VITALS: RESP 16
[2022-02-19] MEDS: MORPHINE SULFATE 4 MG/ML SYRINGE IV PRN ×3 (02:15→11:05)
[2022-02-19] MEDS: AMPICILLIN-SULBACTAM 3 GM in SODIUM CHLORIDE 0.9% 100 ML IVPB SCH ×2 (05:09→11:05)
[2022-02-19 07:28] LABS: Glucose,Whole Blood 282 mg/dL (70-110)
[2022-02-19] MEDS: INSULIN DETEMIR (LEVEMIR) 100 UNIT/ML SYR SQ SCH (08:46)
[2022-02-19] MEDS: LISINOPRIL-HCTZ 20-12.5 MG 1 EACH TAB PO SCH (08:47)
[2022-02-19] MEDS: PREGABALIN 100 MG CAP PO SCH ×2 (08:47→16:51)
[2022-02-19] MEDS: INSULIN ASPART (NovoLOG) 100 UNIT/ML VIAL SQ SCH ×2 (08:47→12:51)
[2022-02-19] MEDS: PANTOPRAZOLE 40 MG TABLET PO SCH (08:47)
[2022-02-19] MEDS: EZETIMIBE 10 MG TAB PO SCH (08:47)
[2022-02-19] MEDS: RIVAROXABAN 2.5 MG TABLET PO SCH (08:47)
[2022-02-19] MEDS: NEOMYCIN-BACITRACIN-POLY OINT 14 GM TUBE TOPICAL SCH (08:47)
[2022-02-19 09:12] LABS: African American GFR (CKD) 96.1 (60.0-200.0); Non-African American GFR(CKD) 82.9 (60.0-200.0)
--- NOTE | 2022-02-19 11:11 | P.DS ---
Providers Date of admission: 02/14/22 11:27 Attending physician: Sunny Estrada MD Consults: 02/13/22 10:18 Consult Physician Routine Consulting Provider: Hu Mendoza Consult Reason/Comments: diabetic foot infection Do you want consulting provider notified?: Yes 02/13/22 12:17 Consult Physician Routine Consulting Provider: Moody Dorman Consult Reason/Comments: RLE diabetic foot infection, Do you want consulting provider notified?: Yes 02/13/22 18:13 Consult Physician Urgent Consulting Provider: Simon Kimble Consult Reason/Comments: right foot circulation Do you want consulting provider notified?: Yes Primary care physician: Stated None Hospital Course: Discharge Diagnosis: Right lower extremity cellulitis versus osteomyelitis status post partial dictation Uncontrolled diabetes mellitus type 2 Hypertension Hyperlipidemia COPD without exacerbation Chronically anticoagulated Hospital Course: 56-year-old man with medical history of diabetes with diabetic neuropathy, hypertension, hyperlipidemia, COPD, on chronic blood thinner presented for right lower extremity pain. Patient says that for about 1 week he's noticed throbbing pain in his lower extremity followed by a release of discharge material which has a foul smell and improvement in the pain. Patient was admitted for diabetic wound of the right foot. He was started on broad-spectrum antibiotics. Patient was seen by vascular surgery and had partial amputation of his foot. Patient wound cultures grew Klebsiella and enterococcus. At the time of discharge infectious disease recommended 10 more days of Augmentin. Patient was then deemed stable for discharge. He was instructed to follow-up with vascular surgery. Patient seen and examined at bedside.[] Vital signs reviewed and stable. General: [non toxic], [no distress], [appears at stated age] Derm: [warm], [dry] Head: [atraumatic], [normocephalic], [symmetric] Eyes: [EOMI], [no lid lag], [anicteric sclera] Mouth: [no lip lesion], [mucus membranes moist] Cardiovascular: [S1S2 reg], [no murmur], [positive posterior tibial pulse bilateral], Lungs: [CTA bilateral], [no rhonchi, no rales] , [no accessory muscle use] Abdominal: [soft], [ nontender to palpation], [no guarding], [no appreciable organomegaly] Ext: [no gross muscle atrophy], [no edema], [no contractures] right for bandages intact and dry Neuro: [ CN II-XI grossly intact], [no focal neuro deficits] Psych: [Alert], [oriented], [appropriate affect] A total of [] minutes of time were spent preparing this complex discharge summary . Patient Condition at Discharge: Fair Plan - Discharge Summary Discharge Rx Participant: Yes New Discharge Prescriptions: New Amoxic-Pot Clav 875-125Mg [Augmentin 875-125] 1 tab PO Q12HR 14 Days #28 tab Fkbkslzx-Cfwoivhouy-Wtjc Oint [Triple Antibiotic Ointment] 1 applic TOPICAL DAILY each Continue Rivaroxaban [Xarelto] 2.5 mg PO DIRECTED Pregabalin [Lyrica] 100 mg PO TID Insulin Glargine,Hum.rec.anlog [Basaglar Kwikpen U-100] 25 unit SQ DIRECTED Omeprazole 20 mg PO BID Lisinopril-Hctz 20-12.5 mg [Zestoretic 20-12.5] 1 tab PO DAILY Dulaglutide [Trulicity] 0.75 mg SQ DIRECTED Ezetimibe [Zetia] 10 mg PO DAILY Discontinued lisinopriL [Zestril] 20 mg PO DAILY Potassium Chloride ER [K-Dur 20] 20 meq PO DIRECTED Discharge Medication List Insulin Glargine,Hum.rec.anlog [Basaglar Kwikpen U-100] 25 unit SQ DIRECTED 09/13/20 [History] Omeprazole 20 mg PO BID 09/13/20 [History] Dulaglutide [Trulicity] 0.75 mg SQ DIRECTED 02/13/22 [History] Ezetimibe [Zetia] 10 mg PO DAILY 02/13/22 [History] Lisinopril-Hctz 20-12.5 mg [Zestoretic 20-12.5] 1 tab PO DAILY 02/13/22 [History] Pregabalin [Lyrica] 100 mg PO TID 02/13/22 [History] Rivaroxaban [Xarelto] 2.5 mg PO DIRECTED 02/13/22 [History] Amoxic-Pot Clav 875-125Mg [Augmentin 875-125] 1 tab PO Q12HR 14 Days #28 tab 02/19/22 [Rx] Fibizynq-Hzpmdkoauz-Mdph Oint [Triple Antibiotic Ointment] 1 applic TOPICAL DAILY each 02/19/22 [Rx] Follow up Appointment(s)/Referral(s): [facility], [NON-STAFF] - 1 Week None,Stated [Primary Care Provider] - 1-2 days Simon Kimble MD [STAFF PHYSICIAN] - 1 Week Hu Mendoza MD [STAFF PHYSICIAN] - 1 Week Discharge Disposition: HOME WITH HOME HEALTH SERVICES
[2022-02-19 12:09] LABS: Glucose,Whole Blood 242 mg/dL (70-110)
[2022-02-19 12:53] VITALS: BP 122/68; PULSE 72; TEMP 98.9
--- NOTE | 2022-02-19 15:43 | CDI ---
Documentation Clarification Form Date: 02/19/2022 03:20:59 PM From: Jeny Momin RN, CCDS Admit Date: 02/14/2022 11:27:00 AM Patient Name: Sven Chavez Visit Number: [id number] Discharge Date: ATTENTION: The Clinical Documentation Specialists (CDI) and [facility] Coding Staff appreciate your assistance in clarifying documentation. Please respond to the clarification below the line at the bottom and electronically sign. The CDI & [facility] Coding staff will review the response and follow-up if needed. Please note: Queries are made part of the Legal Health Record. If you have any questions, please contact the author of this message via ITS. Dr. Casandra Brooks The final diagnosis of the pathology report states: Reactive skin and soft tissue with abundant acute inflammation, ulceration and necrosis. Underlying bone with rare suggestive possible acute osteomyelitis. Coding guidelines do not allow coding professionals to code based on pathology results; therefore, clarification is requested. History/risk factors: Diabetes Mellitus, Hypertension Clinical Indicators: 56-year-old male present with complaints of pain right foot ruled in for infected wet gangrene of the right foot big toe. 02/17/2022 had a ray amputation of right foot big toe. 02/17 Pathology report: Reactive skin and soft tissue with abundant acute inflammation, ulceration and necrosis. Underlying bone with rare suggestive possible acute osteomyelitis. Treatment: 02/17 Ray amputation right foot big toe Unasyn 3 GM IVPB Q 6 HRS 02/14-02/19 Vancomycin 1,500 MG IVPB (PTD 02/13) 1,750 MG Q12 02/15-02/16 Please clarify if you agree with the pathology report diagnosis of underlying bone with rare suggestive possible acute osteomyelitis: [ X ] Yes [ ] No [ ] Other (please specify) [ ] Unable to determine (Template Last Revised: May 2020) MTDD
--- NOTE | 2022-02-19 16:16 | CDI ---
Documentation Clarification Form Date: 02/19/2022 04:11:02 PM From: Jeny Momin RN, CCDS Admit Date: 02/14/2022 11:27:00 AM Patient Name: Sven Chavez Visit Number: [id number] Discharge Date: ATTENTION: The Clinical Documentation Specialists (CDI) and [employer] Coding Staff appreciate your assistance in clarifying documentation. Please respond to the clarification below the line at the bottom and electronically sign. The CDI & [employer] Coding staff will review the response and follow-up if needed. Please note: Queries are made part of the Legal Health Record. If you have any questions, please contact the author of this message via ITS. Dr. Casandra Brooks There is documentation of uncontrolled diabetes mellitus in the H/P and subsequent progress notes. In order to capture the severity of the condition additional clarification is requested. History/Risk Factors: Diabetes Mellitus, Hypertension Clinical Indicators: 56-year-old male present with complaints of pain right foot ruled in for infected wet gangrene of the right foot big toe. He has diabetes, with severe diabetic neuropathy. 02/17/2022 had a ray amputation of right foot big toe. POC Glucose: 02/13 293, 345, 119, 160, 02/14 217, 290, 189, 206. 02/15 306,156, 229 Treatment: Check Hemoglobin A1c Sigar check before meals Insulin sliding scale, continue long-acting Levemir 25 units SQ BID 0700,2100 Can you please further clarify Diabetes Mellitus Type 2 with? [X ] Hyperglycemia [ ] Hypoglycemia [ ] Other, please specify [ ] Unable to determine (Template Last Revised: May 2020) MTDD
--- NOTE | 2022-02-20 04:52 | PN ---
PROGRESS NOTE SUBJECTIVE: This patient came with an infected right foot big toe with wet gangrene. The patient went for amputation of the right foot big toe. Today, we have changed the dressing. Incision site is clean and healing. No drainage noted. No redness noted. The patient is going home today on antibiotic after changed the dressing. PLAN: Nonweightbearing, walk on the heel. Continue with antibiotic. I will see him in my office on Thursday at noon. MMODL / STERLINGN: [id number] /
--- NOTE | 2022-02-24 23:27 | P.PN ---
Subjective Progress Note Date: 02/19/22 Principal diagnosis: Right big toe diabetic foot infection Patient is a 56-year-old male with a past medical history significant for diabetes mellitus hypertension hyperlipidemia COPD and diabetic neuropathy patient is presenting to the hospital for increasing swelling redness to the right big toe concern for underlying osteomyelitis. The patient is status post right big toe amputation completed on 02/16/2022 On today's evaluation that is 02/19/2022, the patient remains to be afebrile, the patient pain to the right big toe amputation site has decreased intensity, the patient denies any chest pain shortness of breath or cough , the patient denies abdominal pain or diarrhea, no new symptoms Objective - Vital Signs Vital signs: Vital Signs Temp 98.9 F 02/19/22 12:50 Pulse 72 02/19/22 12:50 Resp 16 02/19/22 12:50 BP 122/68 02/19/22 12:50 Pulse Ox 97 02/19/22 12:50 FiO2 Intake & Output 02/18/22 02/19/22 02/19/22 18:59 06:59 18:59 Intake Total 320 760 Balance 320 760 Intake: Intake, IV Titration 320 400 Amount Ampicillin-Sulbactam 3 gm 200 200 In Sodium Chloride 0.9% 100 ml @ 200 mls/hr IVPB Q6HR FRANCY Rx#:[id number] Sodium Chloride 0.9% 1, 120 200 000 ml @ 20 mls/hr IV . Q24H FRANCY Rx#:[id number] Oral 360 Other: Voiding Method Toilet Toilet # Voids 3 2 - Exam GENERAL DESCRIPTION: Middle-aged male lying in bed in no distress RESPIRATORY SYSTEM: Unlabored breathing , decreased breath sounds at bases HEART: S1 S2 regular rate and rhythm , ABDOMEN: Soft , no tenderness EXTREMITIES: Right big toe amputation site incision is intact did have some surrounding swelling and redness no drainage - Labs CBC & Chem 7: 02/14/22 05:57 02/19/22 05:40 Labs: Abnormal Lab Results - Last 24 Hours (Table) 02/18/22 02/19/22 02/19/22 Range/Units 16:48 07:26 12:06 POC Glucose (mg/dL) 265 H 282 H 242 H (70-110) mg/dL Microbiology - Last 24 Hours (Table) 02/13/22 02:30 Blood Culture - Final Blood No Growth after 144 hours 02/13/22 02:10 Blood Culture - Final Blood No Growth after 144 hours 02/13/22 19:10 Anaerobic Culture - Final Toe - Right Second Anaerobic Gram Positive Cocci 02/16/22 10:30 Gram Stain - Final Foot - Right Wound Culture - Final Assessment and Plan (1) Diabetic foot infection Status: Acute Code(s): E11.628 - TYPE 2 DIABETES MELLITUS WITH OTHER SKIN COMPLICATIONS; L08.9 - LOCAL INFECTION OF THE SKIN AND SUBCUTANEOUS TISSUE, UNSP SNOMED Code(s): 525440871 Plan: 1patient with a right big toe diabetic foot infection in this patient with significant swelling redness and did have questions on the plantar aspect of the right big toe along with swelling redness of the right big toe with the x-ray did shows evidence of soft tissue swelling and air concerning for possible gangrene will need to cover for the polymicrobial marion usually associated with the diabetic foot infection 2the patient is status post vascular surgical evaluation and amputation of the right big toe completed 02/16/2022 3patient local cultures came back positive with enterococcus and Klebsiella. Patient has shown clinical improvement on Unasyn and will finish therapy with oral Augmentin 2 weeks on discharge and a close outpatient follow-up Time with Patient: Less than 30
== END 2022-02-19 18:45 | disposition home or self-care (01) | DRG 617 ==
LOC: EC 01:34 → 6NMEDSUR 04:56 → 5NMEDONC 07:40 → OBSVTOIN 02-14 11:27
PROVIDERS: ADMIT Internal Medicine; ATTEND Internal Medicine
PROC: 0Y6P0Z0 Detachment at Right 1st Toe, Complete, Open Approach (ICD-10-PCS; principal; 2022-02-17)
DX: E11.69 Type 2 diabetes mellitus with other specified complication (principal); E11.52 Type 2 diabetes mellitus with diabetic peripheral angiopathy with gangrene; E87.1 Hypo-osmolality and hyponatremia; I96 Gangrene, not elsewhere classified; M86.171 Other acute osteomyelitis, right ankle and foot; E11.621 Type 2 diabetes mellitus with foot ulcer; L97.519 Non-pressure chronic ulcer of other part of right foot with unspecified severity; K21.9 Gastro-esophageal reflux disease without esophagitis; I10 Essential (primary) hypertension; K44.9 Diaphragmatic hernia without obstruction or gangrene; L03.031 Cellulitis of right toe; E11.40 Type 2 diabetes mellitus with diabetic neuropathy, unspecified; E78.5 Hyperlipidemia, unspecified; J44.9 Chronic obstructive pulmonary disease, unspecified; E11.65 Type 2 diabetes mellitus with hyperglycemia; B96.1 Klebsiella pneumoniae [K. pneumoniae] as the cause of diseases classified elsewhere; B95.2 Enterococcus as the cause of diseases classified elsewhere; Z20.822 Contact with and (suspected) exposure to COVID-19; Z79.4 Long term (current) use of insulin; Z87.442 Personal history of urinary calculi; Z28.310 Unvaccinated for COVID-19; Z91.14 Patient's other noncompliance with medication regimen; Z86.14 Personal history of Methicillin resistant Staphylococcus aureus infection; Z87.891 Personal history of nicotine dependence; Z71.3 Dietary counseling and surveillance; Z88.5 Allergy status to narcotic agent; Z88.8 Allergy status to other drugs, medicaments and biological substances; Z79.899 Other long term (current) drug therapy; Z79.01 Long term (current) use of anticoagulants; Z79.51 Long term (current) use of inhaled steroids
CPT/HCPCS: 36415; 71045; 80053; 80202; 82565; 83036; 83605; 83735; 84100; 84484; 85025; 87040; 87070; 87075; 87077; 87186; 87205; 87636; 88305; 90686; 96365; 96366; 96375; 99285

== ENCOUNTER 2022-03-12 17:22 | Emergency (ER) | payer OTHER ==
[2022-03-12] MEDS ORDERED: KETOROLAC 15 MG/ML 1 ML VIAL IVP STA (21:08)
[2022-03-12] MEDS ORDERED: SODIUM CHLORIDE 0.9% 1,000 ML IV STA (21:08)
--- NOTE | 2022-03-12 21:14 | ED ---
General Adult HPI - General Chief complaint: Recheck/Abnormal Lab/Rx Stated complaint: bowel issues Time Seen by Provider: 03/12/22 20:57 Source: patient, RN notes reviewed, old records reviewed Mode of arrival: ambulatory Limitations: no limitations - History of Present Illness Initial comments: 56-year-old male presents with complaints of diarrhea for one week. Patient states that looks like mucus or phlegm. Denies any bleeding. Denies any vomiti ng or fevers. States has had this happen in the past and was told he may need a resection of his bowel. Does have a history of diabetes, GERD, hypertension, hiatal hernia and COPD. -: week(s) (1) Radiation: abdomen (rectum) Severity scale (1-10): 8 Consistency: constant Improves with: none Associated Symptoms: other (Diarrhea looks like phlegm, denies hematochezia) - Related Data Home Medications Medication Instructions Recorded Confirmed Insulin Glargine,Hum.rec.anlog 25 unit SQ DIRECTED 09/13/20 02/13/22 [Basaglcurt Clemens U-100] Omeprazole 20 mg PO BID 09/13/20 02/13/22 Dulaglutide [Trulicity] 0.75 mg SQ DIRECTED 02/13/22 02/13/22 Ezetimibe [Zetia] 10 mg PO DAILY 02/13/22 02/13/22 Lisinopril-Hctz 20-12.5 mg 1 tab PO DAILY 02/13/22 02/13/22 [Zestoretic 20-12.5] Pregabalin [Lyrica] 100 mg PO TID 02/13/22 02/13/22 Rivaroxaban [Xarelto] 2.5 mg PO DIRECTED 02/13/22 02/13/22 Previous Rx's Medication Instructions Recorded Amoxic-Pot Clav 875-125Mg 1 tab PO Q12HR 14 Days #28 tab 02/19/22 [Augmentin 875-125] Zooemhzy-Zbyfbhssnq-Hsnn Oint 1 applic TOPICAL DAILY each 02/19/22 [Triple Antibiotic Ointment] Allergies Allergy/AdvReac Type Severity Reaction Status Date / Time hydrocodone [From [place]] AdvReac Heart Verified 03/12/22 18:24 burn, stomach pain metformin AdvReac Nausea & Verified 03/12/22 18:24 Vomiting & Diarrhea Sjvbloi-EUC-HfX Reductase AdvReac liver Verified 03/12/22 18:24 Inhibitor problems [Yzaxrtc-Dhw-Alu Reductase Inhibitor] Review of Systems ROS Statement: Those systems with pertinent positive or pertinent negative responses have been documented in the HPI. ROS Other: All systems not noted in ROS Statement are negative. Past Medical History Past Medical History: Diabetes Mellitus, GERD/Reflux, Hypertension Additional Past Medical History / Comment(s): occ. pain with swallowing at times, hiatal hernia, dry skin, hx kidney stones History of Any Multi-Drug Resistant Organisms: MRSA Date of last positivie culture/infection: 12/13/20 MDRO Source:: TOE Past Surgical History: Orthopedic Surgery Additional Past Surgical History / Comment(s): cystoscopy/stent in urethra, olga carpal tunnel, trigger finger left thumb, rt thumb surgery, shoulder surgery Past Anesthesia/Blood Transfusion Reactions: No Reported Reaction Additional Past Anesthesia/Blood Transfusion Reaction / Comment(s): dizziness Past Psychological History: No Psychological Hx Reported Smoking Status: Former smoker Past Alcohol Use History: None Reported Past Drug Use History: None Reported - Past Family History Mother Family Medical History: No Reported History General Exam Limitations: no limitations General appearance: alert, in no apparent distress Eye exam: Absent: scleral icterus, conjunctival injection, periorbital swelling Neck exam: Absent: tenderness, meningismus Respiratory exam: Absent: respiratory distress, accessory muscle use Cardiovascular Exam: Present: tachycardia GI/Abdominal exam: Present: soft. Absent: distended, tenderness, rigid, mass Rectal exam: Present: normal inspection. Absent: hemorrhoids, mass, tenderness Extremities exam: Present: other (right great toe amputation, no drainage, normal granulation) Back exam: Absent: tenderness, CVA tenderness (R), CVA tenderness (L) Neurological exam: Present: alert, oriented X3 Psychiatric exam: Present: normal affect, normal mood, anxious Skin exam: Present: warm, dry, normal color. Absent: cyanosis, diaphoretic Course Vital Signs 03/12/22 03/12/22 03/12/22 18:19 21:06 21:29 Temperature 97.7 F 97.6 F Pulse Rate 106 H 87 Respiratory 18 16 Rate Blood Pressure 106/65 93/70 126/80 O2 Sat by Pulse 98 97 Oximetry 03/12/22 03/13/22 03/13/22 22:55 00:15 00:50 Temperature Pulse Rate 83 81 82 Respiratory 18 18 18 Rate Blood Pressure 122/72 118/70 123/70 O2 Sat by Pulse 96 99 98 Oximetry Medical Decision Making - Medical Decision Making History of diabetes, GERD, hypertension, asthma, COPD Rectal exam shows no evidence of abscess, no rectal bleeding, no hemorrhoids, no fissures. Patient denies any rectal bleeding. Abdomen is soft and nontender. Labs show a mild leukocytosis, blood glucose 298, electrolytes are unremarkable. Patient was given IV fluids and Toradol CT abdomen and pelvis with contrast shows mild wall thickening of the rectosigmoid colon more noticeable in the rectum and consistent with nonspecific colitis. No bowel obstruction or free air. Patient resting comfortably after medications. Vital signs are stable. Patient is afebrile. Patient will be directed to follow up with gastroenterology for continuation of care. Case discussed with Dr. Rodriguez. Was pt. sent in by a medical professional or institution? @ -No Did you speak to anyone other than the patient for history? @ -No Did you review nursing and triage notes? @ -Yes I agree Were old charts reviewed? @ -No Differential Diagnosis? @ -Differential Abdominal Pain Men: Appendicitis, cholecystitis, diverticulosis, ischemic bowel, pancreatitis, hepatitis, UTI, gastroenteritis, AAA, incarcerated hernia, bowel obstruction, constipation, inflammatory bowel, hepatitis, peptic ulcer disease, splenic infarction, perforated viscus, testicular torsion, this is not meant to be an all-inclusive list CT interpreted by me (1pt min.)? @ -No U/S interpreted by me (1pt. min.)? @ -No What testing was considered but not performed? (CT, X-rays, U/S, labs)? Why? @ UA was considered, patient is denying any dysuria, no fevers What meds were considered but not given? Why? @ -Antibiotics are considered however there is no evidence of acute bacterial infection, no evidence of diverticulitis Did you discuss the management of the patient with other professionals? @ -No Did you reconcile home meds? @ -No Was smoking cessation discussed for >3mins.? @ -No Was critical care preformed (if so, how long)? @ -No Were there social determinants of health that impacted care today? How? (Homelessness, low income, unemployed, alcoholism, drug addiction, transportation, low edu. Level, literacy, decrease access to med. care, [facility], rehab)? @ -No Was there de-escalation of care discussed even if they declined? (Discuss DNR or withdrawal of care, Hospice)? @ -[Discuss DNR or withdrawal of care, Hospice?] What co-morbidities impacted this encounter? (DM, HTN, Smoking, COPD, CAD, Cancer, CVA, Hep., AIDS, mental health diagnosis, sleep apnea, morbid obesity)? @ -Diabetes, hypertension, asthma, COPD Was patient admitted / discharged? @ -Discharged Undiagnosed new problem with uncertain prognosis? @ -[none] Drug Therapy requiring intensive monitoring for toxicity (Heparin, Nitro, Insulin, Cardizem)? @ -[none] Were any procedures done? @ -No Diagnosis/symptom? @ -Colitis Acute, or Chronic, or Acute on Chronic? @ -Acute Uncomplicated (without systemic symptoms) or Complicated (systemic symptoms)? @ -[default] Side effects of treatment? @ -[none] Exacerbation, Progression, or Severe Exacerbation] @ -[no] Poses a threat to life or bodily function? @ -[no] - Lab Data Result diagrams: 03/12/22 21:30 03/12/22 21:30 Lab Results 03/12/22 03/12/22 03/12/22 Range/Units 21:30 21:30 21:30 WBC 11.2 H (3.8-10.6) k/uL RBC 4.50 (4.30-5.90) m/uL Hgb 13.4 (13.0-17.5) gm/dL Hct 38.8 L (39.0-53.0) % MCV 86.2 (80.0-100.0) fL MCH 29.8 (25.0-35.0) pg MCHC 34.5 (31.0-37.0) g/dL RDW 12.8 (11.5-15.5) % Plt Count 446 (150-450) k/uL MPV 7.4 Neutrophils % 69 % Lymphocytes % 20 % Monocytes % 6 % Eosinophils % 4 % Basophils % 1 % Neutrophils # 7.8 H (1.3-7.7) k/uL Lymphocytes # 2.3 (1.0-4.8) k/uL Monocytes # 0.6 (0-1.0) k/uL Eosinophils # 0.4 (0-0.7) k/uL Basophils # 0.1 (0-0.2) k/uL Sodium 135 L (137-145) mmol/L Potassium 4.1 (3.5-5.1) mmol/L Chloride 102 (98-107) mmol/L Carbon Dioxide 25 (22-30) mmol/L Anion Gap 8 mmol/L BUN 15 (9-20) mg/dL Creatinine 0.85 (0.66-1.25) mg/dL Est GFR (CKD-EPI)AfAm >90 (>60 ml/min/1.73 sqM) Est GFR (CKD-EPI)NonAf >90 (>60 ml/min/1.73 sqM) Glucose 298 H (74-99) mg/dL Plasma Lactic Acid Mike 1.5 (0.7-2.0) mmol/L Calcium 9.2 (8.4-10.2) mg/dL Total Bilirubin 0.3 (0.2-1.3) mg/dL AST 19 (17-59) U/L ALT 20 (4-49) U/L Alkaline Phosphatase 125 (38-126) U/L Total Protein 6.7 (6.3-8.2) g/dL Albumin 3.8 (3.5-5.0) g/dL Amylase <30 L (30-110) U/L Lipase 30 (23-300) U/L Disposition Clinical Impression: Colitis Disposition: HOME SELF-CARE Condition: Good Instructions (If sedation given, give patient instructions): Acute Diarrhea (ED), Colitis (ED) Additional Instructions: Increase your fluid intake. Tylenol and Motrin as needed for any discomfort. Follow-up with gastroenterology for possible colonoscopy and continuation of care. Is patient prescribed a controlled substance at d/c from ED?: No Referrals: None,Stated [Primary Care Provider] - 1-2 days Time of Disposition: 00:32
[2022-03-12 21:30] VITALS: TEMP 97.6
[2022-03-12 22:05] LABS: Basophils # (A) 0.1 k/uL (0-0.2); Basophils % (A) 1 %; Eosinophils # (A) 0.4 k/uL (0-0.7); Eosinophils % (A) 4 %; HCT 38.8 % (39.0-53.0); HGB 13.4 gm/dL (13.0-17.5); Lymphocytes # (A) 2.3 k/uL (1.0-4.8); Lymphocytes % (A) 20 %; MCH 29.8 pg (25.0-35.0); MCHC 34.5 g/dL (31.0-37.0); MCV 86.2 fL (80.0-100.0); Mean Platelet Volume 7.4; Monocytes # (A) 0.6 k/uL (0-1.0); Monocytes % (A) 6 %; Neutrophils # (A) 7.8 k/uL (1.3-7.7); Neutrophils % (A) 69 %; Platelet Count 446 k/uL (150-450); RDW 12.8 % (11.5-15.5); WBC 11.2 k/uL (3.8-10.6)
[2022-03-12 22:24] LABS: ALT 20 U/L (4-49); AST 19 U/L (17-59); African American GFR (CKD) >90 (>60 ml/min/1.73 sqM); Albumin 3.8 g/dL (3.5-5.0); Alkaline Phosphatase 125 U/L (38-126); Anion Gap 8 mmol/L; Blood Urea Nitrogen 15 mg/dL (9-20); Calcium 9.2 mg/dL (8.4-10.2); Carbon Dioxide 25 mmol/L (22-30); Chloride 102 mmol/L (98-107); Glucose 298 mg/dL (74-99); Lipase 30 U/L (23-300); Non-African American GFR(CKD) >90 (>60 ml/min/1.73 sqM); Potassium 4.1 mmol/L (3.5-5.1); Sodium 135 mmol/L (137-145); Total Bilirubin 0.3 mg/dL (0.2-1.3); Total Protein 6.7 g/dL (6.3-8.2)
[2022-03-12 22:42] LABS: Amylase <30 U/L (30-110)
[2022-03-12 22:56] VITALS: RESP 18
--- NOTE | 2022-03-12 23:53 | CT ---
EXAMINATION TYPE: CT abdomen pelvis w con DATE OF EXAM: 03/12/2022 COMPARISON: None HISTORY: ABD PAIN, JELLY LIKE STOOL INTERMITTENT X [address] DLP: 1067.6 mGycm Automated exposure control for dose reduction was used. CONTRAST: Performed with IV Contrast, patient injected with 80 mL of Isovue 300. The lung bases are clear. No pleural effusion. Heart size is normal. No pericardial effusion. Liver spleen stomach pancreas appear intact. The bile ducts are not dilated. Gallbladder appears norm al. There is no adrenal mass. Kidneys show satisfactory contrast opacification. No hydronephrosis. Ureter s are not dilated. No retroperitoneal adenopathy. Urinary bladder distends smoothly. No inguinal romario ia. No free fluid in the pelvis. There is mild wall thickening of the rectosigmoid colon. There is no mesenteric edema. No ascites or free air. No sign of a bowel obstruction. Appendix is pos terior and appears normal. The lumbar vertebra appear intact. No compression fracture. The bony pelvis is intact. The hip joints are intact. IMPRESSION: There is some mild wall thickening of the rectosigmoid colon and more noticeable in the rectum and co nsistent with some nonspecific colitis. No bowel obstruction. No free air.
[2022-03-13 00:51] VITALS: BP 123/70; PULSE 82
== END 2022-03-13 01:14 | disposition home or self-care (01) ==
LOC: EC 17:22
DX: K52.9 Noninfective gastroenteritis and colitis, unspecified (principal); E11.9 Type 2 diabetes mellitus without complications; K21.9 Gastro-esophageal reflux disease without esophagitis; I10 Essential (primary) hypertension; Z87.891 Personal history of nicotine dependence; Z88.5 Allergy status to narcotic agent; Z88.8 Allergy status to other drugs, medicaments and biological substances; Z79.4 Long term (current) use of insulin; Z79.01 Long term (current) use of anticoagulants; Z79.899 Other long term (current) drug therapy
CPT/HCPCS: 80053; 82150; 83605; 83690; 85025; 74177; 99284; 96374; 96361; J1885; Q9967

== ENCOUNTER → 2022-05-23 | Outpatient (CLI) | payer OTHER ==
--- NOTE | 2022-05-24 01:19 | MR ---
EXAMINATION TYPE: MR brain wo/w con DATE OF EXAM: 05/23/2022 COMPARISON: None HISTORY: Double vision, vertigo, light headed, weakness, abnormal gait CONTRAST: Standard multiplanar, multisequence MRI departmental protocol images were obtained without contrast a nd with 9 mL intravenous Gadavist gadolinium contrast. Ventricles have fairly normal size. There is no mass effect or midline shift. No sign of intracranial hemorrhage. Diffusion images show no sign of an acute infarct. Corpus callosum is intact. Sella turcica appears normal. The brainstem is intact. Cerebellum is intac t. There is no evidence of orbital mass. There is mild mucosal thickening in the ethmoid air cells. Precontrast images show normal enhancement of the venous sinuses. There is no pathologic enhancement. No evidence of cerebral edema. IMPRESSION: Negative MR scan of the brain. Mild ethmoid sinusitis.
== END | disposition home or self-care (01) ==
LOC: RADMRIMAIN 21:15
PROVIDERS: ATTEND Physician Assistant Medical
DX: J32.2 Chronic ethmoidal sinusitis (principal); H53.2 Diplopia
CPT/HCPCS: 70553; A9585

== ENCOUNTER → 2022-07-02 | Outpatient (CLI) | payer OTHER ==
--- NOTE | 2022-07-02 11:16 | US ---
EXAMINATION TYPE: US gallbladder DATE OF EXAM: 07/02/2022 COMPARISON: CT 03/12/22 CLINICAL INDICATION: Male, 56 years old with history of R10.11 RUQ PAIN; RUQ pain x 3 months. Hx kidn ey stone. TECHNIQUE: Multiple sonographic images of the right upper quadrant are obtained. FINDINGS: EXAM MEASUREMENTS: Liver Length: 13.0 cm Gallbladder Wall: 0.22 cm CBD: 0.33 cm Right Kidney: 5.3 cm in transverse. Unable to measure in sagittal. SYSTEM SUPPORT ANALYST NOTES: Exam is limited due to patient body habitus and gas. Pancreas: Obscured Liver: Appears coarse in echotexture. Gallbladder: Multiple hyperechoic areas seen within. Some hyperechoic foci appear to be attached to the gallbladder wall, some hyperechoic foci appear to be mobile. Evidence for sonographic Bourgeois's sign: No CBD: Portions seen appear wnl Right Kidney: Only a portion of right kidney was seen. Unable to measure in sagittal. IMPRESSION: Cholelithiasis with suspected gallbladder polyps also possibly present. Consider follow-up in 6 month s to ensure stability.
== END | disposition home or self-care (01) ==
LOC: RADUSWWP 10:30
PROVIDERS: ATTEND Family Medicine
DX: K80.20 Calculus of gallbladder without cholecystitis without obstruction (principal)
CPT/HCPCS: 76705

== ENCOUNTER → 2022-08-26 | Outpatient (CLI) | payer OTHER ==
[2022-08-26 13:11] LABS: HCT 43.9 % (39.0-53.0); MCH 29.7 pg (25.0-35.0); MCHC 34.1 g/dL (31.0-37.0); MCV 87.1 fL (80.0-100.0); Platelet Count 343 k/uL (150-450); RBC 5.04 m/uL (4.30-5.90); RDW 13.4 % (11.5-15.5); WBC 6.1 k/uL (3.8-10.6)
[2022-08-26 22:27] LABS: ALT 19 U/L (10-49); AST 16 U/L (14-35); Albumin 4.3 d/dL (3.8-4.9); Albumin/Globulin Ratio 1.65 Ratio (1.60-3.17); Alkaline Phosphatase 105 U/L (41-126); BUN/Creat Ratio 14.36 Ratio (12.00-20.00); Blood Urea Nitrogen 15.8 mg/dL (9.0-27.0); Calcium 9.9 mg/dL (8.7-10.3); Carbon Dioxide 25.6 mmol/L (21.6-31.8); Chloride 103 mmol/L (96-109); Globulin 2.6 d/dL (1.6-3.3); Glucose 236 mg/dL (70-110); Potassium 4.7 mmol/L (3.5-5.5); Sodium 139 mmol/L (135-145); T4, Free (Free Thyroxine) 1.16 ng/dL (0.80-1.80); Total Bilirubin 0.5 mg/dL (0.3-1.2); Total Protein 6.9 d/dL (6.2-8.2)
== END | disposition home or self-care (01) ==
LOC: LABWHC1 10:57
PROVIDERS: ATTEND Physician Assistant
DX: E11.9 Type 2 diabetes mellitus without complications (principal); R42 Dizziness and giddiness; H02.409 Unspecified ptosis of unspecified eyelid; H53.2 Diplopia
CPT/HCPCS: 36415; 80053; 84439; 84443; 84481; 85027

== ENCOUNTER 2022-09-08 05:02 | Emergency (ER) | payer OTHER ==
[2022-09-08 05:10] VITALS: RESP 18
[2022-09-08] MEDS ORDERED: PIPERACILLIN-TAZOBACTAM 3.375 GM in SODIUM CHLORIDE 0.9% 100 ML IVPB STA (05:33)
[2022-09-08 05:56] LABS: Basophils % (A) 0 %; Eosinophils # (A) 0.3 k/uL (0-0.7); Eosinophils % (A) 4 %; HCT 40.2 % (39.0-53.0); HGB 13.8 gm/dL (13.0-17.5); Lymphocytes % (A) 28 %; MCH 30.1 pg (25.0-35.0); MCHC 34.4 g/dL (31.0-37.0); MCV 87.6 fL (80.0-100.0); Mean Platelet Volume 7.1; Monocytes # (A) 0.5 k/uL (0-1.0); Monocytes % (A) 6 %; Neutrophils # (A) 4.4 k/uL (1.3-7.7); Neutrophils % (A) 60 %; Platelet Count 308 k/uL (150-450); RBC 4.59 m/uL (4.30-5.90); RDW 13.2 % (11.5-15.5); WBC 7.3 k/uL (3.8-10.6)
--- NOTE | 2022-09-08 05:59 | ED ---
Skin/Abscess/FB HPI - General Chief complaint: Skin/Abscess/Foreign Body Stated complaint: Toe infection right foot Time Seen by Provider: 09/08/22 05:32 Source: patient Mode of arrival: ambulatory Limitations: no limitations - History of Present Illness Initial comments: This patient is a 56-year-old man who presents to have evaluation of infection of the right second toe. The patient states that he had noticed initially some swelling and drainage to the toe that came on about 5 days ago. He was seen at the clinic and started on Keflex, which he has been taking. He states that he became concerned when over the course of the past day the toe began to have an increase in swelling and redness. He has not noted fever or chills. No chest pain, dyspnea, palpitations or other systemic symptoms. 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 MD complaint: abscess/boil -: days(s) Tetanus Up to Date: yes Location: R foot Severity: moderate Quality: dull Consistency: constant Improves with: none Worsens with: none Associated symptoms: denies other symptoms Treatments Prior to Arrival: attempted to drain pus at home, antibiotic - Related Data Home Medications Medication Instructions Recorded Confirmed Insulin Glargine,Hum.rec.anlog 25 unit SQ DIRECTED 09/13/20 02/13/22 [Nadiaaglcurt Clemens U-100] Omeprazole 20 mg PO BID 09/13/20 02/13/22 Dulaglutide [Trulicity] 0.75 mg SQ DIRECTED 02/13/22 02/13/22 Ezetimibe [Zetia] 10 mg PO DAILY 02/13/22 02/13/22 Lisinopril-Hctz 20-12.5 mg 1 tab PO DAILY 02/13/22 02/13/22 [Zestoretic 20-12.5] Pregabalin [Lyrica] 100 mg PO TID 02/13/22 02/13/22 Rivaroxaban [Xarelto] 2.5 mg PO DIRECTED 02/13/22 02/13/22 Previous Rx's Medication Instructions Recorded Amoxic-Pot Clav 875-125Mg 1 tab PO Q12HR 14 Days #28 tab 02/19/22 [Augmentin 875-125] Hueymrgx-Laurctumbx-Fgro Oint 1 applic TOPICAL DAILY each 02/19/22 [Triple Antibiotic Ointment] Amoxic-Pot Clav 875-125Mg 1 tab PO Q12HR 1 Days #14 tab 09/08/22 [Augmentin 875-125] Sulfamethox-Tmp 800-160Mg [Bactrim 2 each PO Q12HR #28 tab 09/08/22 Ds] Allergies Allergy/AdvReac Type Severity Reaction Status Date / Time hydrocodone [From Ault] AdvReac Heart Verified 09/08/22 05:10 burn, stomach pain metformin AdvReac Nausea & Verified 09/08/22 05:10 Vomiting & Diarrhea Ntkqeob-VAG-QmT Reductase AdvReac liver Verified 09/08/22 05:10 Inhibitor problems [Ywcsnch-Mih-Btd Reductase Inhibitor] Review of Systems ROS Statement: Those systems with pertinent positive or pertinent negative responses have been documented in the HPI. ROS Other: All systems not noted in ROS Statement are negative. Constitutional: Denies: fever, chills Respiratory: Denies: cough, dyspnea Cardiovascular: Denies: chest pain, palpitations Gastrointestinal: Denies: abdominal pain, vomiting, diarrhea Genitourinary: Denies: dysuria Musculoskeletal: Denies: back pain Skin: Reports: as per HPI Neurological: Denies: headache, weakness Past Medical History Past Medical History: Diabetes Mellitus, GERD/Reflux, Hypertension Additional Past Medical History / Comment(s): occ. pain with swallowing at times, hiatal hernia, dry skin, hx kidney stones History of Any Multi-Drug Resistant Organisms: MRSA Date of last positivie culture/infection: 12/13/20 MDRO Source:: TOE Past Surgical History: Orthopedic Surgery Additional Past Surgical History / Comment(s): cystoscopy/stent in urethra, olga carpal tunnel, trigger finger left thumb, rt thumb surgery, shoulder surgery Past Anesthesia/Blood Transfusion Reactions: No Reported Reaction Additional Past Anesthesia/Blood Transfusion Reaction / Comment(s): dizziness Past Psychological History: No Psychological Hx Reported Smoking Status: Former smoker Past Alcohol Use History: None Reported Past Drug Use History: None Reported - Past Family History Mother Family Medical History: No Reported History General Exam Limitations: no limitations General appearance: alert, in no apparent distress Head exam: Present: atraumatic, normocephalic Eye exam: Present: normal appearance. Absent: scleral icterus, conjunctival injection Respiratory exam: Present: normal lung sounds bilaterally. Absent: respiratory distress, wheezes, rales, rhonchi Cardiovascular Exam: Present: regular rate, normal rhythm, normal heart sounds. Absent: systolic murmur, diastolic murmur, rubs, gallop GI/Abdominal exam: Present: soft. Absent: tenderness Extremities exam: Present: other (The patient has erythema and swelling to the right second toe. There has been previous right first toe amputation which is well-healed.) Neurological exam: Present: alert Skin exam: Present: warm, dry, erythema. Absent: intact Course Vital Signs 09/08/22 09/08/22 09/08/22 05:08 07:31 08:42 Temperature 99 F 98.2 F Pulse Rate 98 74 88 Respiratory 18 18 18 Rate Blood Pressure 161/93 156/78 122/72 O2 Sat by Pulse 99 99 99 Oximetry Medical Decision Making - Medical Decision Making Was pt. sent in by a medical professional or institution (, PA, NUISANCE WILDLIFE CONTROL OPERATOR, urgent care, hospital, or retirement...) When possible be specific @ -[No] Did you speak to anyone other than the patient for history (EMS, parent, family, police, friend...)? What history was obtained from this source @ -[No] Did you review nursing and triage notes (agree or disagree)? Why? @ -[I reviewed and agree with nursing and triage notes] Were old charts reviewed (outside hosp., previous admission, EMS record, old E KG, old radiological studies, urgent care reports/EKG's, retirement records)? Report findings @ -[No old charts were reviewed] Differential Diagnosis (chest pain, altered mental status, abdominal pain women, abdominal pain men, vaginal bleeding, weakness, fever, dyspnea, syncope, headache, dizziness, GI bleed, back pain, seizure, CVA, palpatations, mental h ealth, musculoskeletal)? @ -[not applicable] EKG interpreted by me (3pts min.). @ -[As above] X-rays interpreted by me (1pt min.). @ -[None done] CT interpreted by me (1pt min.). @ -[None done] U/S interpreted by me (1pt. min.). @ -[None done] What testing was considered but not performed or refused? (CT, X-rays, U/S, labs)? Why? @ -[None] What meds were considered but not given or refused? Why? @ -[None] Did you discuss the management of the patient with other professionals (professionals i.e. , PA, NUISANCE WILDLIFE CONTROL OPERATOR, lab, RT, psych nurse, social problems specialist, seafood process worker, teacher, logistics supply officer, ed case manager)? Give summary @ -[No] Was smoking cessation discussed for >3mins.? @ -[No] Was critical care preformed (if so, how long)? @ -[No] Were there social determinants of health that impacted care today? How? (Homelessness, low income, unemployed, alcoholism, drug addiction, transportation, low edu. Level, literacy, decrease access to med. care, long-term, rehab)? @ -[No] Was there de-escalation of care discussed even if they declined (Discuss DNR or withdrawal of care, Hospice)? DNR status @ -[No] What co-morbidities impacted this encounter? (DM, HTN, Smoking, COPD, CAD, Cancer, CVA, ARF, Chemo, Hep., AIDS, mental health diagnosis, sleep apnea, morb id obesity)? @ -[None] Was patient admitted / discharged? Hospital course, mention meds given and route, prescriptions, significant lab abnormalities, going to OR and other pertinent info. @ -[Patient presents with diabetic foot infection. The infection appears early at this point clinically and labs do not show evidence of significant inf ection, no significant leukocytosis, sed rate normal. Discussed the appropriate further care and follow-up as well as return parameters and patient stable for discharge with close follow-up. Undiagnosed new problem with uncertain prognosis? @ -[No] Drug Therapy requiring intensive monitoring for toxicity (Heparin, Nitro, Insulin, Cardizem)? @ -[No] Were any procedures done? @ -[No] Diagnosis/symptom? @ -[Acute diabetic foot infection Acute, or Chronic, or Acute on Chronic? @ -[default] Uncomplicated (without systemic symptoms) or Complicated (systemic symptoms)? @ -[Uncomplicated Side effects of treatment? @ -[No] Exacerbation, Progression, or Severe Exacerbation? @ -[No] Poses a threat to life or bodily function? How? (Chest pain, USA, ID, pneumonia, PE, COPD, DKA, ARF, appy, cholecystitis, CVA, Diverticulitis, Homicidal, Suicidal, threat to staff... and all critical care pts) @ -[No] - Lab Data Result diagrams: 09/08/22 05:35 09/08/22 05:45 Lab Results 09/08/22 09/08/22 09/08/22 Range/Units 05:35 05:45 06:07 WBC 7.3 (3.8-10.6) k/uL RBC 4.59 (4.30-5.90) m/uL Hgb 13.8 (13.0-17.5) gm/dL Hct 40.2 (39.0-53.0) % MCV 87.6 (80.0-100.0) fL MCH 30.1 (25.0-35.0) pg MCHC 34.4 (31.0-37.0) g/dL RDW 13.2 (11.5-15.5) % Plt Count 308 (150-450) k/uL MPV 7.1 Neutrophils % 60 % Lymphocytes % 28 % Monocytes % 6 % Eosinophils % 4 % Basophils % 0 % Neutrophils # 4.4 (1.3-7.7) k/uL Lymphocytes # 2.0 (1.0-4.8) k/uL Monocytes # 0.5 (0-1.0) k/uL Eosinophils # 0.3 (0-0.7) k/uL Basophils # 0.0 (0-0.2) k/uL ESR Cancelled 15 Sodium 137 (137-145) mmol/L Potassium 3.9 (3.5-5.1) mmol/L Chloride 105 (98-107) mmol/L Carbon Dioxide 25 (22-30) mmol/L Anion Gap 7 mmol/L BUN 16 (9-20) mg/dL Creatinine 0.79 (0.66-1.25) mg/dL Est GFR (CKD-EPI)AfAm >90 (>60 ml/min/1.73 sqM) Est GFR (CKD-EPI)NonAf >90 (>60 ml/min/1.73 sqM) Glucose 262 H (74-99) mg/dL POC Glucose (mg/dL) (70-110) mg/dL POC Glu Power Saw Operator ID Calcium 8.9 (8.4-10.2) mg/dL Total Bilirubin 0.4 (0.2-1.3) mg/dL AST 24 (17-59) U/L ALT 21 (4-49) U/L Alkaline Phosphatase 102 (38-126) U/L C-Reactive Protein 2.0 H (<1.0) mg/dL Total Protein 6.3 (6.3-8.2) g/dL Albumin 3.6 (3.5-5.0) g/dL Acetone, Qual Negative (Negative) 09/08/22 Range/Units 08:40 WBC (3.8-10.6) k/uL RBC (4.30-5.90) m/uL Hgb (13.0-17.5) gm/dL Hct (39.0-53.0) % MCV (80.0-100.0) fL MCH (25.0-35.0) pg MCHC (31.0-37.0) g/dL RDW (11.5-15.5) % Plt Count (150-450) k/uL MPV Neutrophils % % Lymphocytes % % Monocytes % % Eosinophils % % Basophils % % Neutrophils # (1.3-7.7) k/uL Lymphocytes # (1.0-4.8) k/uL Monocytes # (0-1.0) k/uL Eosinophils # (0-0.7) k/uL Basophils # (0-0.2) k/uL ESR Sodium (137-145) mmol/L Potassium (3.5-5.1) mmol/L Chloride (98-107) mmol/L Carbon Dioxide (22-30) mmol/L Anion Gap mmol/L BUN (9-20) mg/dL Creatinine (0.66-1.25) mg/dL Est GFR (CKD-EPI)AfAm (>60 ml/min/1.73 sqM) Est GFR (CKD-EPI)NonAf (>60 ml/min/1.73 sqM) Glucose (74-99) mg/dL POC Glucose (mg/dL) 252 H (70-110) mg/dL POC Glu Power Saw Operator ID Belval, Brittany Calcium (8.4-10.2) mg/dL Total Bilirubin (0.2-1.3) mg/dL AST (17-59) U/L ALT (4-49) U/L Alkaline Phosphatase (38-126) U/L C-Reactive Protein (<1.0) mg/dL Total Protein (6.3-8.2) g/dL Albumin (3.5-5.0) g/dL Acetone, Qual (Negative) Disposition Clinical Impression: Diabetic foot infection Disposition: HOME SELF-CARE Condition: Good Instructions (If sedation given, give patient instructions): Diabetic Foot Ulcers (ED) Prescriptions: Amoxic-Pot Clav 875-125Mg [Augmentin 875-125] 1 tab PO Q12HR 1 Days #14 tab Sulfamethox-Tmp 800-160Mg [Bactrim Ds] 2 each PO Q12HR #28 tab Is patient prescribed a controlled substance at d/c from ED?: No Referrals: Deyvi Hurtado MD [Primary Care Provider] - 1-2 days
[2022-09-08 06:12] LABS: ALT 21 U/L (4-49); AST 24 U/L (17-59); African American GFR (CKD) >90 (>60 ml/min/1.73 sqM); Albumin 3.6 g/dL (3.5-5.0); Alkaline Phosphatase 102 U/L (38-126); Anion Gap 7 mmol/L; Blood Urea Nitrogen 16 mg/dL (9-20); Calcium 8.9 mg/dL (8.4-10.2); Carbon Dioxide 25 mmol/L (22-30); Chloride 105 mmol/L (98-107); Glucose 262 mg/dL (74-99); Non-African American GFR(CKD) >90 (>60 ml/min/1.73 sqM); Potassium 3.9 mmol/L (3.5-5.1); Sodium 137 mmol/L (137-145); Total Bilirubin 0.4 mg/dL (0.2-1.3); Total Protein 6.3 g/dL (6.3-8.2)
[2022-09-08] MEDS ORDERED: INSULIN REGULAR 100 UNIT/ML VIAL (IV) SQ STA (07:07)
--- NOTE | 2022-09-08 08:06 | XR ---
EXAMINATION TYPE: XR foot complete RT DATE OF EXAM: 09/08/2022 COMPARISON: 02/13/2022 HISTORY: Second toe infection TECHNIQUE: 3 view right foot FINDINGS: There is soft tissue change at the distal portions of the second and third digits. Cortical erosion of the tuft of the second digit may be present. Correlate for acute osteomyelitis at this le gamal. There is been amputation of the distal first metatarsal and first digit. Plantar calcaneal heel spur is present. IMPRESSION: 1. Soft tissue changes distal second and third digits. 2. Some loss of the distal second digit phalanx cortex of the tuft may be present suggesting early os teomyelitis.
[2022-09-08 08:41] LABS: Glucose,Whole Blood 252 mg/dL (70-110)
[2022-09-08 08:43] VITALS: BP 122/72; PULSE 88; TEMP 98.2
== END 2022-09-08 08:43 | disposition home or self-care (01) ==
LOC: EC 05:02
DX: E11.9 Type 2 diabetes mellitus without complications (principal); L08.9 Local infection of the skin and subcutaneous tissue, unspecified; I10 Essential (primary) hypertension; K21.9 Gastro-esophageal reflux disease without esophagitis; Z87.891 Personal history of nicotine dependence; Z79.899 Other long term (current) drug therapy; Z88.5 Allergy status to narcotic agent; Z88.8 Allergy status to other drugs, medicaments and biological substances
CPT/HCPCS: 36415; 80053; 85652; 82009; 85025; 86140; 73630; 99284; 96365; J2543

== ENCOUNTER → 2022-10-03 | Day surgery (SDC) | payer OTHER ==
[2022-10-01 10:56] VITALS: BMI 30.5
[~2022-10-03] MED LIST changes: +ALPRAZolam 0.25 MG TAB PO PRN; +ALPRAZolam 0.5 MG TAB PO PRN; +ASPIRIN 325 MG TAB PO STA; +HEPARIN SODIUM 1,000 UN/ML (10ML VL) IV ONE; +HEPARIN SODIUM 1,000 UN/ML (10ML VL) ONE; +IOPAMIDOL-370 100ML BTL INJ ONE; +IV FLUID CONTINUATION 1,000 ML IV ONE; -LACTATED RINGERS 1,000 ML IV SCH; -LIDOCAINE 1% 20 ML VIAL (10MG/ML) FOR IV START INTRADERMA PRN; +LIDOCAINE 1% INJ 10MG/ML (20 ML MDV) ONE; +LIDOCAINE 1% INJ 10MG/ML (20 ML MDV) SQ ONE; +MIDAZOLAM 2 MG/2 ML VIAL IVP ONE; +NITROGLYCERIN SL TABS 0.4 MG TAB SUBLINGUAL PRN; +ONDANSETRON 4 MG/2 ML VIAL IVP STA; +ONDANSETRON 4 MG/2 ML VIAL ONE; +SODIUM CHLORIDE 0.9% 1,000 ML IV ONE; +SODIUM CHLORIDE 0.9% 1,000 ML in EMPTY BAG 1 BAG IV SCH; +VERAPAMIL 2.5 MG/ML 2 ML AMP ONE; +VERAPAMIL SYRINGE (5 MG/10 ML) INTRAARTER ONE; +fentaNYL (PF) 50 MCG/1 ML VIAL IVP ONE; +fentaNYL (PF) 50 MCG/ML 2 ML AMP ONE
[2022-10-03 11:39] LABS: Glucose,Whole Blood 172 mg/dL (70-110)
[2022-10-03 17:32] LABS: Glucose,Whole Blood 154 mg/dL (70-110)
--- NOTE | 2022-10-06 15:34 | P.CARDCATH ---
Description of Procedure: PROCEDURES PERFORMED: Left heart catheterization, bilateral coronary angiography, ultrasound guided arterial access INDICATION: Abnormal stress test DATE OF PROCEDURE: 10/03/2022 CONSENT:I have discussed the risks, benefits and alternative therapies for the above-mentioned procedure and for both sedation/analgesia as well as necessary blood product administration, if indicated, as they pertain to this patient. The patient has indicated understanding and acceptance of the risks and procedures discussed. PROCEDURE: After the risks, benefits and alternatives of the above mentioned procedure explained in detail with the patient, informed consent was obtained. Patient was taken to the catheterization lab and prepped and draped in usual fashion. Ultrasound guidance was used to assess for arterial access. 1% lidocaine was used to anesthetize the right radial artery. A 6-[place] Islander sheath was placed in the right radial artery using modified Seldinger technique and ultrasound guidance. Left coronary angiography was performed with a 5-[place] Island[place] JL 3.5 catheter and right coronary angiography was performed with a 5-[place] Island[place] JR5 ca theter in various views. A 5-[place] Islander FR5 catheter was inserted into the left ventricle and pressure measurements were obtained. The right radial sheath was removed and a TR band was placed with hemostasis achieved. The patient tolerated the procedure well. Patient was transported back to the post catheterization holding area in stable condition. Conscious Sedation: Patient was monitored under the direct supervision of myself for conscious sedation using Versed and fentanyl for a total duration of 10 minutes HEMODYNAMICS: Ao: 144/89 LV: 141/4, LVEDP 10 SELECTIVE CORONARY ARTERIOGRAPHY: LEFT MAIN: The left main is a large caliber vessel which bifurcates into the LAD and circumflex. There is no significant stenosis. LEFT ANTERIOR DESCENDING CORONARY ARTERY: LAD is a large caliber vessel which wraps around to the apex. There are proximal mild luminal irregularities in the mid LAD 30% stenosis. LEFT CIRCUMFLEX CORONARY ARTERY: Left circumflex is a moderate caliber vessel with 40% mid circumflex stenosis just after a small caliber OM1 branch. RIGHT CORONARY ARTERY: The right coronary artery is a large caliber vessel which gives off a PDA and PLV branch and is the dominant vessel. There is a mid RCA 20-30% stenosis and otherwise normal. FINAL IMPRESSION: 1. CAD as described above including 30% mid LAD, 20-30% mid RCA, 40% mid circumflex stenosis 2. Normal left sided filling pressures PLAN: 1. Aggressive risk factor modification per most recent ACC/AHA guidelines. 2. Follow-up in the office in 1-2 weeks.
== END ==
LOC: CATHCVL 10:36
PROVIDERS: ATTEND Internal Medicine
DX: I25.10 Atherosclerotic heart disease of native coronary artery without angina pectoris (principal); I10 Essential (primary) hypertension; E78.5 Hyperlipidemia, unspecified; E11.9 Type 2 diabetes mellitus without complications; F17.210 Nicotine dependence, cigarettes, uncomplicated; Z79.899 Other long term (current) drug therapy
CPT/HCPCS: 93458; 76937; C1769; C1894; J2250; J2405; J2001; J1644; Q9967; J3010

== ENCOUNTER 2022-10-17 07:05 | Inpatient (IN) | payer OTHER ==
[2022-10-17] MEDS ORDERED: AMPICILLIN-SULBACTAM 3 GM in SODIUM CHLORIDE 0.9% 100 ML IVPB STA (08:14)
[2022-10-17] MEDS ORDERED: VANCOMYCIN IV PER PHARMACY 1 EACH MISC MISCELLANE PRN (08:14)
[2022-10-17] MEDS ORDERED: VANCOMYCIN 1,750 MG in SODIUM CHLORIDE 0.9% 500 ML 500 ML IVPB STA (08:22)
[2022-10-17 08:43] LABS: Basophils % (A) 0 %; Eosinophils # (A) 0.4 k/uL (0-0.7); Eosinophils % (A) 5 %; HCT 35.7 % (39.0-53.0); Lymphocytes # (A) 2.2 k/uL (1.0-4.8); Lymphocytes % (A) 30 %; MCH 31.1 pg (25.0-35.0); MCHC 36.3 g/dL (31.0-37.0); MCV 85.7 fL (80.0-100.0); Mean Platelet Volume 7.5; Monocytes # (A) 0.5 k/uL (0-1.0); Monocytes % (A) 8 %; Neutrophils # (A) 3.9 k/uL (1.3-7.7); Neutrophils % (A) 55 %; Platelet Count 284 k/uL (150-450); RBC 4.17 m/uL (4.30-5.90); RDW 13.8 % (11.5-15.5); WBC 7.1 k/uL (3.8-10.6)
[2022-10-17 08:44] LABS: ALT 23 U/L (4-49); AST 25 U/L (17-59); African American GFR (CKD) >90 (>60 ml/min/1.73 sqM); Albumin 3.9 g/dL (3.5-5.0); Alkaline Phosphatase 89 U/L (38-126); Anion Gap 10 mmol/L; Blood Urea Nitrogen 16 mg/dL (9-20); Carbon Dioxide 21 mmol/L (22-30); Chloride 106 mmol/L (98-107); Glucose 180 mg/dL (74-99); Non-African American GFR(CKD) >90 (>60 ml/min/1.73 sqM); Potassium 3.9 mmol/L (3.5-5.1); Sodium 137 mmol/L (137-145); Total Bilirubin 0.4 mg/dL (0.2-1.3); Total Protein 6.7 g/dL (6.3-8.2)
--- NOTE | 2022-10-17 09:33 | XR ---
EXAMINATION TYPE: XR foot complete RT DATE OF EXAM: 10/17/2022 CLINICAL HISTORY: Osteomyelitis TECHNIQUE: Frontal, lateral and oblique images of the right foot are obtained. COMPARISON: 09/08/2022 FINDINGS: There is been amputation of the right great toe and first metatarsal head and neck. Overall the osseous appearance is stable without bony destructive process. There is soft tissue edema with u lceration noted. Additional soft tissue ulceration is noted to involve the right second toe with asso ciated soft tissue swelling. There is erosive change of the distal phalanx of the right second toe benítez spicious for osteomyelitis. The remaining osseous structures appear unremarkable. IMPRESSION: 1. Findings felt to reflect osteomyelitis involving the distal phalanx of the right second toe. Corre late clinically. Soft tissue ulcerations noted.
[2022-10-17] MEDS ORDERED: NALOXONE 0.4 MG/ML 1 ML VIAL IV PRN (10:05)
--- NOTE | 2022-10-17 10:05 | ED ---
Wound/Laceration HPI - General Chief Complaint: Wound/Laceration Time Seen by Provider: 10/17/22 07:20 Source: patient Mode of arrival: ambulatory Limitations: no limitations - History of Present Illness Initial Comments: 57-year-old male with past medical history of diabetes who presents emergency department for infection of his second toe on his right foot. States that he davis s a history of diabetes and osteomyelitis. He has had previous amputation of his right great toe. He saw his primary care physician a month ago as he has had swelling to his second toe. He was placed on Keflex and Bactrim and took the entire course. He then followed up for repeat evaluation was placed on a second course of Bactrim and Keflex. He saw Dr. Mendoza in clinic on who wanted the patient to come to the emergency department that evening for IV antibiotics. Patient states he cannot make it until today. He denies much pain due to his neuropathy. No fevers. No history of MRSA. No active drainage from the site. No other alleviating, precipitating or modifying factors - Related Data Home Medications Medication Instructions Recorded Confirmed Lisinopril-Hctz 20-12.5 mg 1 tab PO DAILY 02/13/22 10/17/22 [Zestoretic 20-12.5] Empagliflozin [Jardiance] 25 mg PO DAILY 10/03/22 10/17/22 Glimepiride [Amaryl] 2 mg PO DAILY 10/17/22 10/17/22 Omeprazole [PriLOSEC] 20 mg PO AC-BID 10/17/22 10/17/22 Sulfamethox-Tmp 800-160Mg [Bactrim 1 tab PO Q12HR 10/17/22 10/17/22 Ds] Tirzepatide [Mounjaro] 5 mg SQ TH 10/17/22 10/17/22 Allergies Allergy/AdvReac Type Severity Reaction Status Date / Time metformin AdvReac Nausea & Verified 10/17/22 10:27 Vomiting & Diarrhea Osnbtup-YKY-BoO Reductase AdvReac liver Verified 10/17/22 10:27 Inhibitor problems [Ifsmrsv-Oew-Zjw Reductase Inhibitor] Review of Systems ROS Statement: Those systems with pertinent positive or pertinent negative responses have been documented in the HPI. ROS Other: All systems not noted in ROS Statement are negative. Past Medical History Past Medical History: Diabetes Mellitus, GERD/Reflux, Hypertension Additional Past Medical History / Comment(s): occ. pain with swallowing at times, hiatal hernia, dry skin, hx kidney stones History of Any Multi-Drug Resistant Organisms: MRSA Date of last positivie culture/infection: 12/13/20 MDRO Source:: TOE Past Surgical History: Orthopedic Surgery Additional Past Surgical History / Comment(s): cystoscopy/stent in urethra, olga carpal tunnel, trigger finger left thumb, rt thumb surgery, shoulder surgery Past Anesthesia/Blood Transfusion Reactions: No Reported Reaction Additional Past Anesthesia/Blood Transfusion Reaction / Comment(s): dizziness Past Psychological History: No Psychological Hx Reported Smoking Status: Former smoker Past Alcohol Use History: None Reported Past Drug Use History: None Reported - Past Family History Mother Family Medical History: No Reported History General Exam Limitations: no limitations General appearance: alert, in no apparent distress Head exam: Present: atraumatic, normocephalic, normal inspection Eye exam: Present: normal appearance, PERRL, EOMI. Absent: scleral icterus, conjunctival injection, periorbital swelling ENT exam: Present: normal exam, mucous membranes moist Neck exam: Present: normal inspection. Absent: tenderness, meningismus, lymphadenopathy Respiratory exam: Present: normal lung sounds bilaterally. Absent: respiratory distress, wheezes, rales, rhonchi, stridor Cardiovascular Exam: Present: regular rate, normal rhythm, normal heart sounds. Absent: systolic murmur, diastolic murmur, rubs, gallop, clicks GI/Abdominal exam: Present: soft, normal bowel sounds. Absent: distended, tenderness, guarding, rebound, rigid Extremities exam: Present: normal capillary refill, other (Amputation of right great toe. Second toe is markedly enlarged with ulceration at the distal tip. No active drainage.). Absent: pedal edema, joint swelling, calf tenderness Back exam: Present: normal inspection Neurological exam: Present: alert, oriented X3, CN II-XII intact Psychiatric exam: Present: normal affect, normal mood Skin exam: Present: warm, dry, intact, normal color. Absent: rash Course Vital Signs 10/17/22 10/17/22 10/17/22 07:19 08:49 11:00 Temperature 98.3 F 97 F L 97.1 F L Pulse Rate 90 79 82 Respiratory 20 16 16 Rate Blood Pressure 155/84 132/97 137/79 O2 Sat by Pulse 99 98 98 Oximetry Medical Decision Making - Medical Decision Making Was pt. sent in by a medical professional or institution (, SARIKA, UROLOGY SURGEON, urgent care, hospital, or fci...) When possible be specific @ -Yes patient was sent in by Dr. Mendoza Did you speak to anyone other than the patient for history (EMS, parent, family, police, friend...)? What history was obtained from this source @ -No Did you review nursing and triage notes (agree or disagree)? Why? @ -I reviewed and agree with nursing and triage notes Were old charts reviewed (outside hosp., previous admission, EMS record, old EKG, old radiological studies, urgent care reports/EKG's, fci records)? Report findings @ -No old charts were reviewed Differential Diagnosis (chest pain, altered mental status, abdominal pain women, abdominal pain men, vaginal bleeding, weakness, fever, dyspnea, syncope, headache, dizziness, GI bleed, back pain, seizure, CVA, palpatations, mental health, musculoskeletal)? @ -Osteomyelitis, cellulitis, venous stasis ulcer EKG interpreted by me (3pts min.). @ -Not completed X-rays interpreted by me (1pt min.). @ -Yes and demonstrates possible osteomyelitis CT interpreted by me (1pt min.). @ -None done U/S interpreted by me (1pt. min.). @ -None done What testing was considered but not performed or refused? (CT, X-rays, U/S, labs)? Why? @ -None What meds were considered but not given or refused? Why? @ -None Did you discuss the management of the patient with other professionals (professionals i.e. SARIKA Hagen, UROLOGY SURGEON, lab, RT, psych nurse, social research assistant, jigger operator, teacher, duty officer, case management manager)? Give summary @ -Yes, spoke with Dr. Baron who will admit patient Was smoking cessation discussed for >3mins.? @ -No Was critical care preformed (if so, how long)? @ -No Were there social determinants of health that impacted care today? How? (Homelessness, low income, unemployed, alcoholism, drug addiction, transportation, low edu. Level, literacy, decrease access to med. care, shelter, rehab)? @ -No Was there de-escalation of care discussed even if they declined (Discuss DNR or withdrawal of care, Hospice)? DNR status @ -No What co-morbidities impacted this encounter? (DM, HTN, Smoking, COPD, CAD, Ca ncer, CVA, ARF, Chemo, Hep., AIDS, mental health diagnosis, sleep apnea, morbid obesity)? @ -Neuropathy, diabetes Was patient admitted / discharged? Hospital course, mention meds given and route, prescriptions, significant lab abnormalities, going to OR and other pertinent info. @ -Upon arrival patient was placed into room 30. A thorough history and physical exam was performed. Patient was sent into the hospital for failed outpatient treatment of osteomyelitis. He is given a dose of Unasyn and Vanco. Patient will be admitted to Dr. Baron with consults placed for Dr. Mendoza and Dr. Kimble. Patient was agreeable to admission Undiagnosed new problem with uncertain prognosis? @ -No Drug Therapy requiring intensive monitoring for toxicity (Heparin, Nitro, Insulin, Cardizem)? @ -No Were any procedures done? @ -No Diagnosis/symptom? @ -Acute on chronic right foot wound, osteomyelitis right second toe Acute, or Chronic, or Acute on Chronic? @ -Acute on chronic Uncomplicated (without systemic symptoms) or Complicated (systemic symptoms)? @ -Complicated Side effects of treatment? @ -No Exacerbation, Progression, or Severe Exacerbation? @ -No Poses a threat to life or bodily function? How? (Chest pain, USA, ME, pneumonia, PE, COPD, DKA, ARF, appy, cholecystitis, CVA, Diverticulitis, Homicidal, Suicidal, threat to staff... and all critical care pts) @ -No - Lab Data Result diagrams: 10/17/22 08:21 10/17/22 08:21 Lab Results 10/17/22 10/17/22 10/17/22 Range/Units 08:21 08:21 08:21 WBC 7.1 (3.8-10.6) k/uL RBC 4.17 L (4.30-5.90) m/uL Hgb 13.0 (13.0-17.5) gm/dL Hct 35.7 L (39.0-53.0) % MCV 85.7 (80.0-100.0) fL MCH 31.1 (25.0-35.0) pg MCHC 36.3 (31.0-37.0) g/dL RDW 13.8 (11.5-15.5) % Plt Count 284 (150-450) k/uL MPV 7.5 Neutrophils % 55 % Lymphocytes % 30 % Monocytes % 8 % Eosinophils % 5 % Basophils % 0 % Neutrophils # 3.9 (1.3-7.7) k/uL Lymphocytes # 2.2 (1.0-4.8) k/uL Monocytes # 0.5 (0-1.0) k/uL Eosinophils # 0.4 (0-0.7) k/uL Basophils # 0.0 (0-0.2) k/uL Sodium 137 (137-145) mmol/L Potassium 3.9 (3.5-5.1) mmol/L Chloride 106 (98-107) mmol/L Carbon Dioxide 21 L (22-30) mmol/L Anion Gap 10 mmol/L BUN 16 (9-20) mg/dL Creatinine 0.91 (0.66-1.25) mg/dL Est GFR (CKD-EPI)AfAm >90 (>60 ml/min/1.73 sqM) Est GFR (CKD-EPI)NonAf >90 (>60 ml/min/1.73 sqM) Glucose 180 H (74-99) mg/dL Plasma Lactic Acid Mike 1.0 (0.7-2.0) mmol/L Calcium 9.0 (8.4-10.2) mg/dL Total Bilirubin 0.4 (0.2-1.3) mg/dL AST 25 (17-59) U/L ALT 23 (4-49) U/L Alkaline Phosphatase 89 (38-126) U/L Total Protein 6.7 (6.3-8.2) g/dL Albumin 3.9 (3.5-5.0) g/dL Disposition Clinical Impression: Osteomyelitis Disposition: ADMITTED IP TO THIS [facility] Condition: Stable Is patient prescribed a controlled substance at d/c from ED?: No Time of Disposition: 10:05 Decision to Admit Reason: Admit from EC Decision Date: 10/17/22 Decision Time: 10:05
[2022-10-17] MEDS: AMPICILLIN-SULBACTAM 3 GM in SODIUM CHLORIDE 0.9% 100 ML IVPB SCH ×2 (12:21→18:05)
--- NOTE | 2022-10-17 14:17 | P.GSCN ---
History of Present Illness History of present illness: 57-year-old gentleman known to me from the past patient came to the emergency room with history of for right foot second toe discomfort and mild redness x-ray shows osteo-mellitus of the right foot second toe patient has been seen by infectious disease for IV antibiotic patient is scab on the right foot second toe and the patient had a right big toe ray amputation done in the past which is completely healed plan is to use medihoney gel to the right foot second toe and the patient and I will IV antibiotic under infectious disease Medical history history of diabetes Neck is supple no bruit appreciated Chest is clear first and second sound normal good and both lungs Abdomen soft nontender Vascular femorals are 2+ bilateral DP 1+ stump of the right foot big toe has a healed patient has some scab formation and some mild redness of the right foot second toe Plan is medihoney gel to the right foot second toe and an IV antibiotic under care of infectious disease follow with you Past Medical History Past Medical History: Diabetes Mellitus, GERD/Reflux, Hypertension Additional Past Medical History / Comment(s): occ. pain with swallowing at times, hiatal hernia, dry skin, hx kidney stones History of Any Multi-Drug Resistant Organisms: MRSA Year Discovered:: 12/13/20 MDRO Source:: TOE Past Surgical History: Orthopedic Surgery Additional Past Surgical History / Comment(s): cystoscopy/stent in urethra, olga carpal tunnel, trigger finger left thumb, rt thumb surgery, shoulder surgery Past Anesthesia/Blood Transfusion Reactions: No Reported Reaction Additional Past Anesthesia/Blood Transfusion Reaction / Comm: dizziness Past Psychological History: No Psychological Hx Reported Smoking Status: Former smoker Past Alcohol Use History: None Reported Past Drug Use History: None Reported - Past Family History Mother Family Medical History: No Reported History Medications and Allergies Home Medications Medication Instructions Recorded Confirmed Type Lisinopril-Hctz 20-12.5 mg 1 tab PO DAILY 02/13/22 10/17/22 History [Zestoretic 20-12.5] Empagliflozin [Jardiance] 25 mg PO DAILY 10/03/22 10/17/22 History Glimepiride [Amaryl] 2 mg PO DAILY 10/17/22 10/17/22 History Omeprazole [PriLOSEC] 20 mg PO AC-BID 10/17/22 10/17/22 History Sulfamethox-Tmp 800-160Mg [Bactrim 1 tab PO Q12HR 10/17/22 10/17/22 History Ds] Tirzepatide [Mounjaro] 5 mg SQ TH 10/17/22 10/17/22 History Allergies Allergy/AdvReac Type Severity Reaction Status Date / Time metformin AdvReac Nausea & Verified 10/17/22 10:27 Vomiting & Diarrhea Ubicrif-KJA-MyH Reductase AdvReac liver Verified 10/17/22 10:27 Inhibitor problems [Ivcfrna-Ilg-Yma Reductase Inhibitor] Surgical - Exam Vital Signs Temp Pulse Resp BP Pulse Ox 98.3 F 90 20 155/84 99 10/17/22 07:19 10/17/22 07:19 10/17/22 07:19 10/17/22 07:19 10/17/22 07:19 Results - Labs 10/17/22 08:21 10/17/22 08:21 Abnormal Lab Results - Last 24 Hours (Table) 10/17/22 10/17/22 Range/Units 08:21 08:21 RBC 4.17 L (4.30-5.90) m/uL Hct 35.7 L (39.0-53.0) % Carbon Dioxide 21 L (22-30) mmol/L Glucose 180 H (74-99) mg/dL Diabetes panel 10/17/22 Range/Units 08:21 Sodium 137 (137-145) mmol/L Potassium 3.9 (3.5-5.1) mmol/L Chloride 106 (98-107) mmol/L Carbon Dioxide 21 L (22-30) mmol/L BUN 16 (9-20) mg/dL Creatinine 0.91 (0.66-1.25) mg/dL Glucose 180 H (74-99) mg/dL Calcium 9.0 (8.4-10.2) mg/dL AST 25 (17-59) U/L ALT 23 (4-49) U/L Alkaline Phosphatase 89 (38-126) U/L Total Protein 6.7 (6.3-8.2) g/dL Albumin 3.9 (3.5-5.0) g/dL Calcium panel 10/17/22 Range/Units 08:21 Calcium 9.0 (8.4-10.2) mg/dL Albumin 3.9 (3.5-5.0) g/dL Pituitary panel 10/17/22 Range/Units 08:21 Sodium 137 (137-145) mmol/L Potassium 3.9 (3.5-5.1) mmol/L Chloride 106 (98-107) mmol/L Carbon Dioxide 21 L (22-30) mmol/L BUN 16 (9-20) mg/dL Creatinine 0.91 (0.66-1.25) mg/dL Glucose 180 H (74-99) mg/dL Calcium 9.0 (8.4-10.2) mg/dL Adrenal panel 10/17/22 Range/Units 08:21 Sodium 137 (137-145) mmol/L Potassium 3.9 (3.5-5.1) mmol/L Chloride 106 (98-107) mmol/L Carbon Dioxide 21 L (22-30) mmol/L BUN 16 (9-20) mg/dL Creatinine 0.91 (0.66-1.25) mg/dL Glucose 180 H (74-99) mg/dL Calcium 9.0 (8.4-10.2) mg/dL Total Bilirubin 0.4 (0.2-1.3) mg/dL AST 25 (17-59) U/L ALT 23 (4-49) U/L Alkaline Phosphatase 89 (38-126) U/L Total Protein 6.7 (6.3-8.2) g/dL Albumin 3.9 (3.5-5.0) g/dL
[2022-10-17] MEDS ORDERED: DEXTROSE 50% SYRINGE 50 ML IVP PRN ×2 (15:58)
--- NOTE | 2022-10-17 16:22 | P.HPIM ---
History of Present Illness H&P Date: 10/17/22 Patient is a 57-year-old male with history of hypertension, diabetes presenting with worsening right second toe swelling. He has had prior amputation of his right great toe, and recently started noticing swelling of the second toe. He was started on oral antibiotics in the outpatient setting. He was seen by ID in clinic, and was sent over to emergency for IV antibiotics. He currently denies any fevers, chills, chest pain, shortness of breath, abdominal pain, nausea, vomiting, urinary or bowel complaints. He is a former smoker, former alcohol use, denies any illicit drug use. In the ED, temperature was 98.3, pulse 90, respiratory rate 20, blood pressure 155/84, saturating at 99% on room air. CBC shows WBC 7.1, hemoglobin 13, sodium 137, potassium 3.9, bicarb 21, creatinine 0.91, glucose 180. Lactic acid 1.0. Right foot x-ray shows osteomyelitis involving the distal phalanx of the right second toe. Patient was started on Unasyn and vancomycin in the ED. Patient being admitted for osteomyelitis. Pertinent positives and negatives as discussed in HPI, a complete review of systems was performed and all other systems are negative. Patient seen and examined at bedside. Vital signs reviewed General: nontoxic, no distress, appears at stated age Derm: warm, dry Head: atraumatic, normocephalic, symmetric Eyes: EOMI, no lid lag, anicteric sclera, pupils equal round reactive to light ENT: Nose and ears atraumatic Neck: No thyromegaly, supple Mouth: no lip lesion, mucus membranes moist Cardiovascular: S1S2 reg, no murmur, no edema Lungs: clear to auscultation bilateral, no rhonchi, no rales, no wheeze, no accessory muscle use Abdominal: soft, nontender to palpation, no guarding, no appreciable organomegaly Ext: no gross muscle atrophy, muscle strength muscle strength 5 out of 5 in all 4 extremities, no contractures Neuro: CN II-XII grossly intact Psych: Alert, oriented, appropriate affect Assessment/Plan: Right second toe osteomyelitis Diabetic foot infection Type 2 diabetes Hypertension Coronary artery disease -ID consulted -On IV Unasyn, and IV vancomycin, monitor renal function, BMP tomorrow -Sliding scale insulin, home medications held -Continue home antihypertensives -Vascular surgery note reviewed, continue medihoney gel and IV antibiotics -Patient did have recent cardiac cath that showed 30% stenosis in mid LAD, 20- 30% mid RCA stenosis, 40% mid circumflex stenosis -Patient unable to tolerate statin -We'll start him on aspirin and ezetimibe The patient is admitted with an anticipated greater than 2 midnight stay as inpatient status for evaluation of osteomyelitis. Surrogate decision-maker: None stated CODE STATUS: Full code DVT prophylaxis: Subcu heparin Anticipated discharge date: Pending clinical course Anticipated discharge place: Pending clinical course A total of 55 minutes was spent on the care of this complex patient more than 50% of the time was spent in counseling and care coordination. Past Medical History Past Medical History: Diabetes Mellitus, GERD/Reflux, Hypertension Additional Past Medical History / Comment(s): occ. pain with swallowing at times, hiatal hernia, dry skin, hx kidney stones History of Any Multi-Drug Resistant Organisms: MRSA Date of last positivie culture/infection: 12/13/20 MDRO Source:: TOE Past Surgical History: Orthopedic Surgery Additional Past Surgical History / Comment(s): cystoscopy/stent in urethra, olga carpal tunnel, trigger finger left thumb, rt thumb surgery, shoulder surgery Past Anesthesia/Blood Transfusion Reactions: No Reported Reaction Additional Past Anesthesia/Blood Transfusion Reaction / Comment(s): dizziness Past Psychological History: No Psychological Hx Reported Smoking Status: Former smoker Past Alcohol Use History: None Reported Past Drug Use History: None Reported - Past Family History Mother Family Medical History: No Reported History Medications and Allergies Home Medications Medication Instructions Recorded Confirmed Type Lisinopril-Hctz 20-12.5 mg 1 tab PO DAILY 02/13/22 10/17/22 History [Zestoretic 20-12.5] Empagliflozin [Jardiance] 25 mg PO DAILY 10/03/22 10/17/22 History Glimepiride [Amaryl] 2 mg PO DAILY 10/17/22 10/17/22 History Omeprazole [PriLOSEC] 20 mg PO AC-BID 10/17/22 10/17/22 History Sulfamethox-Tmp 800-160Mg [Bactrim 1 tab PO Q12HR 10/17/22 10/17/22 History Ds] Tirzepatide [Mounjaro] 5 mg SQ TH 10/17/22 10/17/22 History Allergies Allergy/AdvReac Type Severity Reaction Status Date / Time metformin AdvReac Nausea & Verified 10/17/22 10:27 Vomiting & Diarrhea Upifraj-TIF-TnT Reductase AdvReac liver Verified 10/17/22 10:27 Inhibitor problems [Ntksmfy-Vrc-Zdx Reductase Inhibitor] Physical Exam Vitals: Vital Signs Temp Pulse Resp BP Pulse Ox 10/17/22 11:00 97.1 F L 82 16 137/79 98 10/17/22 08:49 97 F L 79 16 132/97 98 10/17/22 07:19 98.3 F 90 20 155/84 99 Intake and Output 10/17/22 10/17/22 10/17/22 06:59 14:59 22:59 Other: Weight 92.986 kg Results CBC & Chem 7: 10/17/22 08:21 10/17/22 08:21 Labs: Abnormal Lab Results - Last 24 Hours (Table) 10/17/22 10/17/22 Range/Units 08:21 08:21 RBC 4.17 L (4.30-5.90) m/uL Hct 35.7 L (39.0-53.0) % Carbon Dioxide 21 L (22-30) mmol/L Glucose 180 H (74-99) mg/dL
[2022-10-17 16:53] LABS: Glucose,Whole Blood 209 mg/dL (70-110)
[2022-10-17] MEDS: INSULIN ASPART (NovoLOG) 100 UNIT/ML VIAL SQ SCH ×2 (16:58→20:40)
[2022-10-17 20:17] LABS: Glucose,Whole Blood 206 mg/dL (70-110)
[2022-10-17] MEDS: VANCOMYCIN 1,750 MG in SODIUM CHLORIDE 0.9% 500 ML 500 ML IVPB SCH (20:40)
[2022-10-17] MEDS: MAG HYDROX/AL HYDROX/SIMETH 30 ML CUP PO PRN (21:51)
--- NOTE | 2022-10-17 22:15 | P.CONS ---
History of Present Illness - Reason for Consult Consult date: 10/17/22 - History of Present Illness Patient is a 57-year-old male with a past medical history significant for diabetes mellitus patient did have a history of right big toe diabetic foot infection requiring amputation of the right big toe on 02/17/2022 patient culture that was positive for Klebsiella Enterococcus and anaerobes patient was treated with IV Unasyn and subsequently sent home on oral Augmentin patient did have a overall healing of the right big toe amputation site over the last 3 months the patient has developed a hammertoe deformity to the right second toe of with a callus formation on the tip of his right second toe and subsequent increasing swelling redness and discomfort to the right second toe patient describing the pain to be more of a dull aching to throbbing 3 to 5-10 hand radiation with associated swelling redness but no drainage patient has been to multiple courses of antibiotic in the form of cephalexin Bactrim and Augmentin however the patient mention he was not able to tolerate Augmentin because of significant diarrhea associated with it patient was seen in the [facility] ER on 09/08/2022 he did have a x-ray of the right foot which did shows a early osteomyelitis to the right second toe patient was evaluated in the office however in view of the condition of the right second toe and possible failure of medical therapy and need for amputation patient was advised to go to the ER for further evaluation Past Medical History Past Medical History: Diabetes Mellitus, GERD/Reflux, Hypertension Additional Past Medical History / Comment(s): occ. pain with swallowing at times, hiatal hernia, dry skin, hx kidney stones History of Any Multi-Drug Resistant Organisms: MRSA Year Discovered:: 12/13/20 MDRO Source:: TOE Past Surgical History: Orthopedic Surgery Additional Past Surgical History / Comment(s): cystoscopy/stent in urethra, olga carpal tunnel, trigger finger left thumb, rt thumb surgery, shoulder surgery Past Anesthesia/Blood Transfusion Reactions: No Reported Reaction Additional Past Anesthesia/Blood Transfusion Reaction / Comm: dizziness Past Psychological History: No Psychological Hx Reported Smoking Status: Former smoker Past Alcohol Use History: None Reported Past Drug Use History: None Reported - Past Family History Mother Family Medical History: No Reported History Medications and Allergies Home Medications Medication Instructions Recorded Confirmed Type Lisinopril-Hctz 20-12.5 mg 1 tab PO DAILY 02/13/22 10/17/22 History [Zestoretic 20-12.5] Empagliflozin [Jardiance] 25 mg PO DAILY 10/03/22 10/17/22 History Glimepiride [Amaryl] 2 mg PO DAILY 10/17/22 10/17/22 History Omeprazole [PriLOSEC] 20 mg PO AC-BID 10/17/22 10/17/22 History Sulfamethox-Tmp 800-160Mg [Bactrim 1 tab PO Q12HR 10/17/22 10/17/22 History Ds] Tirzepatide [Mounjaro] 5 mg SQ TH 10/17/22 10/17/22 History Allergies Allergy/AdvReac Type Severity Reaction Status Date / Time metformin AdvReac Nausea & Verified 10/17/22 10:27 Vomiting & Diarrhea Qadvwfy-GXJ-TcF Reductase AdvReac liver Verified 10/17/22 10:27 Inhibitor problems [Rraqncl-Pvi-Wme Reductase Inhibitor] Physical Exam Vitals: Vital Signs Temp Pulse Resp BP Pulse Ox 10/17/22 11:00 97.1 F L 82 16 137/79 98 10/17/22 08:49 97 F L 79 16 132/97 98 10/17/22 07:19 98.3 F 90 20 155/84 99 Intake and Output 10/16/22 10/17/22 10/17/22 22:59 06:59 14:59 Other: Weight 92.986 kg Results CBC & Chem 7: 10/17/22 08:21 10/17/22 08:21 Labs: Abnormal Lab Results - Last 24 Hours (Table) 10/17/22 10/17/22 Range/Units 08:21 08:21 RBC 4.17 L (4.30-5.90) m/uL Hct 35.7 L (39.0-53.0) % Carbon Dioxide 21 L (22-30) mmol/L Glucose 180 H (74-99) mg/dL Assessment and Plan Plan: 1patient with right second toe diabetic foot infection osteomyelitis in this patient who did have history of right big toe osteomyelitis in February 2022 requiring amputation culture that was positive for Enterococcus Klebsiella and anaerobes patient has been on multiple course of antibiotic for his right second toe without any healing however he did not have any culture from the right second toe x-ray is highly suspicious for osteomyelitis 2-patient to continue vancomycin watching his creatinine closely however we will add Unasyn to cover for the gram-negative and anaerobes 3-await vascular surgery evaluation for possible debridement deep culture and course of antibiotic versus amputation 4-check inflammatory markers We will follow on clinical condition and cultures to further adjust medication if needed Thank you for this consultation we will follow the patient along with you Dictation was produced using [employer] dictation software. please excuse any grammatical, word or spelling errors. Time with Patient: Greater than 30
[2022-10-18 00:14] LABS: Glucose,Whole Blood 145 mg/dL (70-110)
[2022-10-18] MEDS: HEPARIN SODIUM,PORCINE 5,000 UNIT/ML 1 ML VIAL SQ SCH ×3 (01:16→17:49)
[2022-10-18] MEDS: AMPICILLIN-SULBACTAM 3 GM in SODIUM CHLORIDE 0.9% 100 ML IVPB SCH ×4 (01:41→17:44)
[2022-10-18] MEDS: MAG HYDROX/AL HYDROX/SIMETH 30 ML CUP PO PRN (06:25)
[2022-10-18] MEDS ORDERED: HYDROcodone/APAP 5-325MG 1 EACH TAB PO STA (06:31)
[2022-10-18 06:43] LABS: African American GFR (CKD) >90 (>60 ml/min/1.73 sqM); Anion Gap 6 mmol/L; Blood Urea Nitrogen 12 mg/dL (9-20); Calcium 8.4 mg/dL (8.4-10.2); Carbon Dioxide 24 mmol/L (22-30); Chloride 106 mmol/L (98-107); Glucose 207 mg/dL (74-99); Non-African American GFR(CKD) >90 (>60 ml/min/1.73 sqM); Sodium 136 mmol/L (137-145)
[2022-10-18] MEDS: VANCOMYCIN 1,750 MG in SODIUM CHLORIDE 0.9% 500 ML 500 ML IVPB SCH ×2 (06:43→17:45)
[2022-10-18 07:14] LABS: Glucose,Whole Blood 179 mg/dL (70-110)
[2022-10-18] MEDS: INSULIN ASPART (NovoLOG) 100 UNIT/ML VIAL SQ SCH ×4 (08:19→20:46)
[2022-10-18] MEDS: EZETIMIBE 10 MG TAB PO SCH (08:20)
[2022-10-18] MEDS: ASPIRIN 81 MG PO SCH (08:20)
[2022-10-18] MEDS: LISINOPRIL-HCTZ 20-12.5 MG 1 EACH TAB PO SCH (08:20)
[2022-10-18] MEDS: PANTOPRAZOLE 40 MG TABLET PO SCH (08:20)
[2022-10-18 10:15] LABS: Basophils # (A) 0.06 X 10*3/uL (0.00-0.10); Basophils % (A) 0.9 %; Eosinophils # (A) 0.31 X 10*3/uL (0.04-0.35); Eosinophils % (A) 4.7 %; HCT 37.7 % (39.6-50.0); HGB 13.1 d/dL (13.0-17.0); Lymphocytes # (A) 1.37 X 10*3/uL (0.90-5.00); Lymphocytes % (A) 20.6 %; MCHC 34.7 d/dL (32.0-37.0); MCV 86.5 FL (80.0-97.0); Mean Platelet Volume 9.9 FL (9.5-12.2); Monocytes # (A) 0.52 X 10*3/uL (0.20-1.00); Monocytes % (A) 7.8 %; NRBC Per 100 WBC 0 X 10*3/uL (0.00-0.01); Neutrophils # (A) 4.38 X 10*3/uL (1.80-7.70); Neutrophils % (A) 65.8 %; Platelet Count 305 X 10*3/uL (140-440); RBC 4.36 X 10*6/uL (4.40-5.60); RDW 13.7 % (11.5-14.5); WBC 6.65 X 10*3/uL (4.50-10.00)
[2022-10-18 11:47] LABS: Glucose,Whole Blood 154 mg/dL (70-110)
--- NOTE | 2022-10-18 14:04 | P.PN ---
Subjective Progress Note Date: 10/18/22 Hospital Course: 57-year-old male with history of hypertension, diabetes presenting with worsening right second toe swelling. In the ED, temperature was 98.3, pulse 90, respiratory rate 20, blood pressure 155/84, saturating at 99% on room air. CBC shows WBC 7.1, hemoglobin 13, sodium 137, potassium 3.9, bicarb 21, creatinine 0.91, glucose 180. Lactic acid 1.0. Right foot x-ray shows osteomyelitis involving the distal phalanx of the right second toe. Patient was started on Unasyn and vancomycin in the ED. Patient being admitted for osteomyelitis. Subjective: Patient seen and examined at bedside. No acute events overnight. Pertinent positives and negatives as discussed above, a complete review of systems was performed and all other systems are negative. Vitals Signs Reviewed. General: nontoxic, no distress, appears at stated age Derm: warm, dry, right second toe covered in dressing Head: atraumatic, normocephalic, symmetric Eyes: EOMI, no lid lag, anicteric sclera, pupils equal round reactive to light ENT: Nose and ears atraumatic Neck: No thyromegaly, supple Mouth: no lip lesion, mucus membranes moist Cardiovascular: S1S2 reg, no murmur, no edema Lungs: clear to auscultation bilateral, no rhonchi, no rales, no wheeze, no accessory muscle use Abdominal: soft, nontender to palpation, no guarding, no appreciable organomegaly Ext: no gross muscle atrophy, muscle strength muscle strength 5 out of 5 in all 4 extremities, no contractures Neuro: CN II-XII grossly intact Psych: Alert, oriented, appropriate affect Data Reviewed Today: Pertinent Labs: WBC 6.65, hemoglobin 13.1, creatinine 0.75, A1c 8.8, glucose range between 145-179 Imaging: no new imaging Assessment and Plan: Right second toe osteomyelitis Diabetic foot infection Type 2 diabetes Hypertension Coronary artery disease -ID following -On IV Unasyn, and IV vancomycin, monitor renal function, BMP tomorrow -Sliding scale insulin, home medications held -Continue home antihypertensives -Vascular surgery following , continue medihoney gel and IV antibiotics -Patient did have recent cardiac cath that showed 30% stenosis in mid LAD, 20- 30% mid RCA stenosis, 40% mid circumflex stenosis -Patient unable to tolerate statin -started on aspirin and ezetimibe DVT ppx: sq heparin Code status: FC Anticipated discharge place: home Anticipated discharge time: pending clinical course Objective - Vital Signs Vital signs: Vital Signs Temp 97.4 F L 10/18/22 11:47 Pulse 81 10/18/22 11:47 Resp 18 10/18/22 11:47 BP 149/80 10/18/22 11:47 Pulse Ox 99 10/18/22 11:47 FiO2 Intake & Output 10/17/22 10/18/22 10/18/22 18:59 06:59 18:59 Intake Total 110 Balance 110 Weight 92.986 kg Intake: Oral 110 Other: # Voids 1 - Labs CBC & Chem 7: 10/18/22 05:33 10/18/22 05:33 Labs: Abnormal Lab Results - Last 24 Hours (Table) 10/17/22 10/17/22 10/18/22 Range/Units 16:51 20:13 00:13 RBC (4.40-5.60) X 10*6/uL Hct (39.6-50.0) % Sodium (137-145) mmol/L Glucose (74-99) mg/dL POC Glucose (mg/dL) 209 H 206 H 145 H (70-110) mg/dL Hemoglobin A1c (<=6.0) % 10/18/22 10/18/22 10/18/22 Range/Units 05:33 05:33 05:33 RBC 4.36 L (4.40-5.60) X 10*6/uL Hct 37.7 L (39.6-50.0) % Sodium 136 L (137-145) mmol/L Glucose 207 H (74-99) mg/dL POC Glucose (mg/dL) (70-110) mg/dL Hemoglobin A1c 8.8 H (<=6.0) % 10/18/22 10/18/22 Range/Units 07:13 11:45 RBC (4.40-5.60) X 10*6/uL Hct (39.6-50.0) % Sodium (137-145) mmol/L Glucose (74-99) mg/dL POC Glucose (mg/dL) 179 H 154 H (70-110) mg/dL Hemoglobin A1c (<=6.0) % Microbiology - Last 24 Hours (Table) 10/17/22 08:21 Blood Culture - Preliminary Blood
[2022-10-18] MEDS: ACETAMINOPHEN TAB 325 MG TAB PO PRN (16:22)
[2022-10-18 17:16] LABS: Glucose,Whole Blood 186 mg/dL (70-110)
[2022-10-18 19:59] LABS: Glucose,Whole Blood 122 mg/dL (70-110)
[2022-10-18] MEDS: LOPERAMIDE 2 MG CAP PO PRN (21:53)
[2022-10-19] MEDS: AMPICILLIN-SULBACTAM 3 GM in SODIUM CHLORIDE 0.9% 100 ML IVPB SCH ×4 (00:08→17:43)
[2022-10-19] MEDS: HEPARIN SODIUM,PORCINE 5,000 UNIT/ML 1 ML VIAL SQ SCH ×3 (00:09→15:23)
[2022-10-19] MEDS ORDERED: MORPHINE SULFATE 2 MG/ML SYRINGE IVP STA (04:30)
[2022-10-19] MEDS ORDERED: VANCOMYCIN TROUGH DUE 1 EACH MISC MISCELLANE ONE ×2 (06:00→18:00)
[2022-10-19] MEDS: VANCOMYCIN 1,750 MG in SODIUM CHLORIDE 0.9% 500 ML 500 ML IVPB SCH ×3 (06:41→19:26)
[2022-10-19 07:06] LABS: Glucose,Whole Blood 177 mg/dL (70-110)
[2022-10-19] MEDS ORDERED: LACTATED RINGERS 1,000 ML IV ONE (07:40)
[2022-10-19] MEDS: INSULIN ASPART (NovoLOG) 100 UNIT/ML VIAL SQ SCH ×4 (07:49→21:27)
[2022-10-19] MEDS: PANTOPRAZOLE 40 MG TABLET PO SCH (07:49)
[2022-10-19] MEDS ORDERED: MIDAZOLAM 2 MG/2 ML VIAL ONE (07:53)
[2022-10-19] MEDS ORDERED: PROPOFOL 10 MG/ML 20 ML VIAL IV ONE (07:53)
[2022-10-19] MEDS ORDERED: KETAMINE 10 MG/ML 20 ML VIAL ONE (07:53)
[2022-10-19] MEDS ORDERED: fentaNYL (PF) 50 MCG/ML 2 ML AMP ONE (07:53)
[2022-10-19] MEDS ORDERED: LIDOCAINE 1%-EPI 1:100,000 50 ML VIAL SQ ONE ×2 (08:09)
[2022-10-19] MEDS ORDERED: VANCOMYCIN 1,000 MG VIAL IVPB ONE (08:43)
[2022-10-19 09:00] LABS: Glucose,Whole Blood 142 mg/dL (70-110)
--- NOTE | 2022-10-19 09:53 | OP ---
OPERATIVE REPORT DATE OF SERVICE : PREOPERATIVE DIAGNOSIS: Osteomyelitis with wet gangrene, right foot, second toe. POSTOPERATIVE DIAGNOSIS: Osteomyelitis with wet gangrene, right foot, second toe. OPERATION: Amputation of the right foot second toe at metatarsophalangeal joint. DESCRIPTION OF PROCEDURE: This patient was brought to the operating room under local IV sedation. Right foot was prepped and draped manner. Incision was made on the dorsal aspect of the foot elliptical, deepened through skin, fat and fascia, went circumferentially around the second toe on the plantar aspect. The tendons on the dorsum and plantar aspect were divided. After that, there were some digital vessels, which were suture ligated. Until we reached the metatarsophalangeal joint, the ligaments were divided and the second toe was removed at the metatarsophalangeal joint. The wound was irrigated copiously with saline. Hemostasis was well controlled and incision was closed in 2 layers using 3-0 Vicryl and 5-0 nylon. Dressing applied. The patient tolerated the procedure well. The toe was sent for deep culture. MMODL / IJN: [id number] /
[2022-10-19] MEDS: LISINOPRIL-HCTZ 20-12.5 MG 1 EACH TAB PO SCH (10:45)
[2022-10-19] MEDS: ASPIRIN 81 MG PO SCH (10:45)
[2022-10-19] MEDS: EZETIMIBE 10 MG TAB PO SCH (10:45)
[2022-10-19 11:24] LABS: Glucose,Whole Blood 128 mg/dL (70-110)
[2022-10-19] MEDS: ACETAMINOPHEN TAB 325 MG TAB PO PRN (14:29)
--- NOTE | 2022-10-19 14:43 | P.PN ---
Subjective Progress Note Date: 10/19/22 Hospital Course: 57-year-old male with history of hypertension, diabetes presenting with worsening right second toe swelling. In the ED, temperature was 98.3, pulse 90, respiratory rate 20, blood pressure 155/84, saturating at 99% on room air. CBC shows WBC 7.1, hemoglobin 13, sodium 137, potassium 3.9, bicarb 21, creatinine 0.91, glucose 180. Lactic acid 1.0. Right foot x-ray shows osteomyelitis involving the distal phalanx of the right second toe. Patient was started on Unasyn and vancomycin in the ED. Patient being admitted for osteomyelitis. Now status post right foot second toe amputation at MTP joint. Subjective: Patient seen and examined at bedside. No acute events overnight. Pertinent positives and negatives as discussed above, a complete review of systems was performed and all other systems are negative. Vitals Signs Reviewed. General: nontoxic, no distress, appears at stated age Derm: warm, dry, dressing clean, dry, intact Head: atraumatic, normocephalic, symmetric Eyes: EOMI, no lid lag, anicteric sclera, pupils equal round reactive to light ENT: Nose and ears atraumatic Neck: No thyromegaly, supple Mouth: no lip lesion, mucus membranes moist Cardiovascular: S1S2 reg, no murmur, no edema Lungs: clear to auscultation bilateral, no rhonchi, no rales, no wheeze, no accessory muscle use Abdominal: soft, nontender to palpation, no guarding, no appreciable organomegaly Ext: no gross muscle atrophy, muscle strength muscle strength 5 out of 5 in all 4 extremities, no contractures Neuro: CN II-XII grossly intact Psych: Alert, oriented, appropriate affect Data Reviewed Today: Pertinent Labs: blood sugars range between 142-177, BMP is still pending Imaging: no new imaging Assessment and Plan: Right second toe osteomyelitis, status post amputation on 10/19 Diabetic foot infection Type 2 diabetes Hypertension Coronary artery disease, recent cath -ID following -On IV Unasyn, and IV vancomycin, monitor renal function, BMP tomorrow -Sliding scale insulin, home medications held -Continue home antihypertensives -Operative note reviewed, status post amputation -On oral Tylenol and oral [place] as needed -started on aspirin and ezetimibe DVT ppx: sq heparin Code status: Anticipated discharge place: home Anticipated discharge time: pending clinical course Objective - Vital Signs Vital signs: Vital Signs Temp 98.1 F 10/19/22 11:05 Pulse 83 10/19/22 12:30 Resp 18 10/19/22 11:05 BP 158/94 10/19/22 12:30 Pulse Ox 100 10/19/22 12:30 FiO2 Intake & Output 10/18/22 10/19/22 10/19/22 18:59 06:59 18:59 Intake Total 685 Output Total 3 10 Balance -3 675 Intake: IV 685 Output: Urine 3 Estimated Blood Loss 10 Other: Voiding Method Toilet # Voids 1 1 # Bowel Movements 1 1 - Labs CBC & Chem 7: 10/18/22 05:33 10/18/22 05:33 Labs: Abnormal Lab Results - Last 24 Hours (Table) 10/18/22 10/18/22 10/19/22 Range/Units 17:13 19:57 07:05 POC Glucose (mg/dL) 186 H 122 H 177 H (70-110) mg/dL 10/19/22 10/19/22 Range/Units 08:59 11:23 POC Glucose (mg/dL) 142 H 128 H (70-110) mg/dL Microbiology - Last 24 Hours (Table) 10/17/22 08:21 Blood Culture - Preliminary Blood
[2022-10-19] MEDS: HYDROcodone/APAP 5-325MG 1 EACH TAB PO PRN ×2 (15:15→21:31)
--- NOTE | 2022-10-19 17:04 | P.PN ---
Subjective Progress Note Date: 10/18/22 Principal diagnosis: Right second toe diabetic foot infection/osteomyelitis Patient is a 57-year-old male with a past medical history significant for diabetes mellitus patient did have a history of right big toe diabetic foot infection requiring amputation of the right big toe on 02/17/2022 patient culture that was positive for Klebsiella Enterococcus and anaerobes, no presented to hospital with a right second toe pain swelling redness and nonhealing for over 3 months with evidence of Osteomyelitis on the plain x-rays. On today's evaluation that is 10/18/2022, the patient denies having any fever or chills, the patient is breathing comfortably on room air no chest pain or shortness of breath or cough no nausea no vomiting no abdominal pain or any worsening pain to the right second toe Patient did have a white count of 6.65 hemoglobin is 13.1 creatinine 0.75 blood cultures currently pending Objective - Vital Signs Vital signs: Vital Signs Temp 97.4 F L 10/18/22 11:47 Pulse 81 10/18/22 11:47 Resp 18 10/18/22 11:47 BP 149/80 10/18/22 11:47 Pulse Ox 99 10/18/22 11:47 FiO2 Intake & Output 10/17/22 10/18/22 10/18/22 18:59 06:59 18:59 Intake Total 110 Balance 110 Weight 92.986 kg Intake: Oral 110 Other: # Voids 1 - Exam GENERAL DESCRIPTION: Middle-age male lying in bed in no distress RESPIRATORY SYSTEM: Unlabored breathing , decreased breath sounds at bases HEART: S1 S2 regular rate and rhythm , ABDOMEN: Soft , no tenderness EXTREMITIES: Right second toe currently dressed no drainage and the dressing - Labs CBC & Chem 7: 10/18/22 05:33 10/18/22 05:33 Labs: Abnormal Lab Results - Last 24 Hours (Table) 10/17/22 10/17/22 10/18/22 Range/Units 16:51 20:13 00:13 RBC (4.40-5.60) X 10*6/uL Hct (39.6-50.0) % Sodium (137-145) mmol/L Glucose (74-99) mg/dL POC Glucose (mg/dL) 209 H 206 H 145 H (70-110) mg/dL Hemoglobin A1c (<=6.0) % 10/18/22 10/18/22 10/18/22 Range/Units 05:33 05:33 05:33 RBC 4.36 L (4.40-5.60) X 10*6/uL Hct 37.7 L (39.6-50.0) % Sodium 136 L (137-145) mmol/L Glucose 207 H (74-99) mg/dL POC Glucose (mg/dL) (70-110) mg/dL Hemoglobin A1c 8.8 H (<=6.0) % 10/18/22 10/18/22 Range/Units 07:13 11:45 RBC (4.40-5.60) X 10*6/uL Hct (39.6-50.0) % Sodium (137-145) mmol/L Glucose (74-99) mg/dL POC Glucose (mg/dL) 179 H 154 H (70-110) mg/dL Hemoglobin A1c (<=6.0) % Microbiology - Last 24 Hours (Table) 10/17/22 08:21 Blood Culture - Preliminary Blood Assessment and Plan (1) Osteomyelitis of toe of right foot Current Visit: Yes Status: Acute Code(s): M86.9 - OSTEOMYELITIS, UNSPECIFIED SNOMED Code(s): 920273520 (2) Diabetic foot infection Current Visit: No Status: Acute Code(s): E11.628 - TYPE 2 DIABETES MELLITUS WITH OTHER SKIN COMPLICATIONS; L08.9 - LOCAL INFECTION OF THE SKIN AND SUBCUTANEOUS TISSUE, UNSP SNOMED Code(s): 490517121 (3) Failure of outpatient treatment Current Visit: No Status: Acute Code(s): Z78.9 - OTHER SPECIFIED HEALTH STATUS SNOMED Code(s): 736865908 Plan: 1patient with right second toe diabetic foot infection osteomyelitis in this patient who did have history of right big toe osteomyelitis in February 2022 requiring amputation culture that was positive for Enterococcus Klebsiella and anaerobes patient has been on multiple course of antibiotic for his right second toe without any healing however he did not have any culture from the right second toe x-ray is highly suspicious for osteomyelitis 2-discussed with vascular surgery with the patient being high risk of nonhealing and recurrent infection and the patient wanted to be done with it recommending amputation of the right second toe scheduled for tomorrow 3-patient to continue vancomycin watching his kidney function closely along with Unasyn to cover for the gram-negative and anaerobes Dictation was produced using [employer] dictation software. please excuse any grammatical, word or spelling errors. Time with Patient: Less than 30
[2022-10-19 17:05] LABS: Glucose,Whole Blood 158 mg/dL (70-110)
--- NOTE | 2022-10-19 17:05 | P.PN ---
Subjective Progress Note Date: 10/19/22 Principal diagnosis: Right second toe diabetic foot infection/osteomyelitis Patient is a 57-year-old male with a past medical history significant for diabetes mellitus patient did have a history of right big toe diabetic foot infection requiring amputation of the right big toe on 02/17/2022 patient culture that was positive for Klebsiella Enterococcus and anaerobes, no presented to hospital with a right second toe pain swelling redness and nonhealing for over 3 months with evidence of Osteomyelitis on the plain x-rays. Patient is status post amputation of right second toe 10/19/2022 On today's evaluation that is 10/19/2022, the patient remains to be afebrile, t he patient is breathing comfortably on room air, the patient denies chest pain or shortness of breath or cough no nausea no vomiting no abdominal pain or any worsening pain to the right second toe Patient did have a white count of 6.65 hemoglobin is 13.1 creatinine 0.75 as of yesterday no blood work today, blood cultures currently pending Objective - Vital Signs Vital signs: Vital Signs Temp 98.1 F 10/19/22 11:05 Pulse 83 10/19/22 12:30 Resp 18 10/19/22 11:05 BP 158/94 10/19/22 12:30 Pulse Ox 100 10/19/22 12:30 FiO2 Intake & Output 10/18/22 10/19/22 10/19/22 18:59 06:59 18:59 Intake Total 685 Output Total 3 10 Balance -3 675 Intake: IV 685 Output: Urine 3 Estimated Blood Loss 10 Other: Voiding Method Toilet # Voids 1 1 # Bowel Movements 1 1 - Exam GENERAL DESCRIPTION: Middle-age male lying in bed in no distress RESPIRATORY SYSTEM: Unlabored breathing , decreased breath sounds at bases HEART: S1 S2 regular rate and rhythm , ABDOMEN: Soft , no tenderness EXTREMITIES: Right second toe amputation site is currently dressed in OR dressing - Labs CBC & Chem 7: 10/18/22 05:33 10/18/22 05:33 Labs: Abnormal Lab Results - Last 24 Hours (Table) 10/18/22 10/18/22 10/19/22 Range/Units 17:13 19:57 07:05 POC Glucose (mg/dL) 186 H 122 H 177 H (70-110) mg/dL 10/19/22 10/19/22 Range/Units 08:59 11:23 POC Glucose (mg/dL) 142 H 128 H (70-110) mg/dL Microbiology - Last 24 Hours (Table) 10/17/22 08:21 Blood Culture - Preliminary Blood Assessment and Plan (1) Osteomyelitis of toe of right foot Current Visit: Yes Status: Acute Code(s): M86.9 - OSTEOMYELITIS, UNSPECIFIED SNOMED Code(s): 863471726 (2) Diabetic foot infection Current Visit: No Status: Acute Code(s): E11.628 - TYPE 2 DIABETES MELLITUS WITH OTHER SKIN COMPLICATIONS; L08.9 - LOCAL INFECTION OF THE SKIN AND SUBCUTANEOUS TISSUE, UNSP SNOMED Code(s): 575540181 (3) Failure of outpatient treatment Current Visit: No Status: Acute Code(s): Z78.9 - OTHER SPECIFIED HEALTH STATUS SNOMED Code(s): 549266294 Plan: 1patient with right second toe diabetic foot infection osteomyelitis in this patient who did have history of right big toe osteomyelitis in February 2022 requiring amputation culture that was positive for Enterococcus Klebsiella and anaerobes patient has been on multiple course of antibiotic for his right second toe without any healing however he did not have any culture from the right second toe x-ray is highly suspicious for osteomyelitis 2-discussed with vascular surgery with the patient being high risk of nonhealing and recurrent infection and the patient wanted to be done with it, patient is status post amputation of the right second toe completed on 10/19/2022 3-patient to continue vancomycin along with Unasyn while waiting for the OR cultures to be finalize Dictation was produced using [employer] dictation software. please excuse any grammatical, word or spelling errors. Time with Patient: Less than 30
[2022-10-19 18:15] LABS: African American GFR (CKD) >90 (>60 ml/min/1.73 sqM); Anion Gap 6 mmol/L; Blood Urea Nitrogen 13 mg/dL (9-20); Calcium 8.8 mg/dL (8.4-10.2); Carbon Dioxide 29 mmol/L (22-30); Chloride 102 mmol/L (98-107); Glucose 143 mg/dL (74-99); Non-African American GFR(CKD) >90 (>60 ml/min/1.73 sqM); Potassium 4.3 mmol/L (3.5-5.1); Sodium 137 mmol/L (137-145)
[2022-10-19 20:45] LABS: Glucose,Whole Blood 189 mg/dL (70-110)
[2022-10-19] MEDS: LOPERAMIDE 2 MG CAP PO PRN (21:31)
[2022-10-19] MEDS: MAG HYDROX/AL HYDROX/SIMETH 30 ML CUP PO PRN (21:32)
[2022-10-20] MEDS: AMPICILLIN-SULBACTAM 3 GM in SODIUM CHLORIDE 0.9% 100 ML IVPB SCH ×4 (01:01→17:36)
[2022-10-20] MEDS: HEPARIN SODIUM,PORCINE 5,000 UNIT/ML 1 ML VIAL SQ SCH ×3 (01:02→15:43)
[2022-10-20] MEDS: HYDROcodone/APAP 5-325MG 1 EACH TAB PO PRN ×3 (04:51→21:08)
[2022-10-20 07:32] LABS: Glucose,Whole Blood 143 mg/dL (70-110)
[2022-10-20] MEDS: INSULIN ASPART (NovoLOG) 100 UNIT/ML VIAL SQ SCH ×4 (07:32→21:07)
[2022-10-20 07:40] LABS: African American GFR (CKD) >90 (>60 ml/min/1.73 sqM); Anion Gap 5 mmol/L; Blood Urea Nitrogen 14 mg/dL (9-20); Calcium 8.9 mg/dL (8.4-10.2); Carbon Dioxide 28 mmol/L (22-30); Chloride 103 mmol/L (98-107); Glucose 182 mg/dL (74-99); Non-African American GFR(CKD) >90 (>60 ml/min/1.73 sqM); Potassium 4.3 mmol/L (3.5-5.1); Sodium 136 mmol/L (137-145)
[2022-10-20] MEDS: ASPIRIN 81 MG PO SCH (08:02)
[2022-10-20] MEDS: PANTOPRAZOLE 40 MG TABLET PO SCH (08:02)
[2022-10-20] MEDS: EZETIMIBE 10 MG TAB PO SCH (08:02)
[2022-10-20] MEDS: LISINOPRIL-HCTZ 20-12.5 MG 1 EACH TAB PO SCH (08:02)
[2022-10-20] MEDS: VANCOMYCIN 1,750 MG in SODIUM CHLORIDE 0.9% 500 ML 500 ML IVPB SCH ×2 (08:02→18:12)
[2022-10-20 11:56] LABS: Glucose,Whole Blood 162 mg/dL (70-110)
[2022-10-20] MEDS: LACTOBACILLUS ACIDOPHILUS/PECT 1 EACH CAPSULE PO SCH ×2 (13:10→21:55)
--- NOTE | 2022-10-20 14:10 | P.PN ---
Subjective Progress Note Date: 10/20/22 Hospital Course: 57-year-old male with history of hypertension, diabetes presenting with worsening right second toe swelling. In the ED, temperature was 98.3, pulse 90, respiratory rate 20, blood pressure 155/84, saturating at 99% on room air. CBC shows WBC 7.1, hemoglobin 13, sodium 137, potassium 3.9, bicarb 21, creatinine 0.91, glucose 180. Lactic acid 1.0. Right foot x-ray shows osteomyelitis involving the distal phalanx of the right second toe. Patient was started on Unasyn and vancomycin in the ED. Patient being admitted for osteomyelitis. Now status post right foot second toe amputation at MTP joint. Waiting for OR cultures. Subjective: Patient seen and examined at bedside. No acute events overnight. Pertinent positives and negatives as discussed above, a complete review of systems was performed and all other systems are negative. Vitals Signs Reviewed. General: nontoxic, no distress, appears at stated age Derm: warm, dry, dressing clean, dry, intact Head: atraumatic, normocephalic, symmetric Eyes: EOMI, no lid lag, anicteric sclera, pupils equal round reactive to light ENT: Nose and ears atraumatic Neck: No thyromegaly, supple Mouth: no lip lesion, mucus membranes moist Cardiovascular: S1S2 reg, no murmur, no edema Lungs: clear to auscultation bilateral, no rhonchi, no rales, no wheeze, no accessory muscle use Abdominal: soft, nontender to palpation, no guarding, no appreciable organomegaly Ext: no gross muscle atrophy, muscle strength muscle strength 5 out of 5 in all 4 extremities, no contractures Neuro: CN II-XII grossly intact Psych: Alert, oriented, appropriate affect Data Reviewed Today: Pertinent Labs: blood sugars range between 143-189, sodium 136, creatinine 0.77 Imaging: no new imaging Assessment and Plan: Right second toe osteomyelitis, status post amputation on 10/19 Diabetic foot infection Type 2 diabetes Hypertension Coronary artery disease, recent cath -ID following -On IV Unasyn, and IV vancomycin, monitor renal function, BMP tomorrow -Sliding scale insulin, home medications held -Continue home antihypertensives -On oral Tylenol and oral [place] as needed -started on aspirin and ezetimibe DVT ppx: sq heparin Code status: Anticipated discharge place: home Anticipated discharge time: pending clinical course Objective - Vital Signs Vital signs: Vital Signs Temp 98.5 F 10/20/22 11:15 Pulse 82 10/20/22 11:15 Resp 15 10/20/22 11:15 BP 118/71 10/20/22 11:15 Pulse Ox 98 10/20/22 11:15 FiO2 Intake & Output 10/19/22 10/20/22 10/20/22 18:59 06:59 18:59 Intake Total 685 Output Total 10 Balance 675 Intake: IV 685 Output: Estimated Blood Loss 10 Other: Voiding Method Toilet Toilet Toilet # Voids 1 2 # Bowel Movements 1 1 - Labs CBC & Chem 7: 10/18/22 05:33 10/20/22 06:23 Labs: Abnormal Lab Results - Last 24 Hours (Table) 10/19/22 10/19/22 10/19/22 Range/Units 17:04 17:52 20:43 Sodium (137-145) mmol/L Glucose 143 H (74-99) mg/dL POC Glucose (mg/dL) 158 H 189 H (70-110) mg/dL 10/20/22 10/20/22 10/20/22 Range/Units 06:23 07:25 11:55 Sodium 136 L (137-145) mmol/L Glucose 182 H (74-99) mg/dL POC Glucose (mg/dL) 143 H 162 H (70-110) mg/dL Microbiology - Last 24 Hours (Table) 10/17/22 08:21 Blood Culture - Preliminary Blood 10/19/22 08:15 Gram Stain - Preliminary Toe - Right Second Tissue Culture - Preliminary
[2022-10-20 14:56] LABS: Basophils # (A) 0.04 X 10*3/uL (0.00-0.10); Basophils % (A) 0.4 %; Eosinophils # (A) 0.23 X 10*3/uL (0.04-0.35); Eosinophils % (A) 2.3 %; HCT 41.4 % (39.6-50.0); Lymphocytes # (A) 1.96 X 10*3/uL (0.90-5.00); Lymphocytes % (A) 19.5 %; MCH 29.5 pg (27.0-32.0); MCHC 33.8 d/dL (32.0-37.0); MCV 87.3 FL (80.0-97.0); Mean Platelet Volume 9.6 FL (9.5-12.2); Monocytes # (A) 0.76 X 10*3/uL (0.20-1.00); Monocytes % (A) 7.6 %; NRBC Per 100 WBC 0 X 10*3/uL (0.00-0.01); Neutrophils # (A) 7.04 X 10*3/uL (1.80-7.70); Neutrophils % (A) 69.9 %; Platelet Count 295 X 10*3/uL (140-440); RBC 4.74 X 10*6/uL (4.40-5.60); RDW 13.7 % (11.5-14.5); WBC 10.06 X 10*3/uL (4.50-10.00)
[2022-10-20 17:11] LABS: Glucose,Whole Blood 181 mg/dL (70-110)
--- NOTE | 2022-10-20 17:37 | P.PN ---
Progress Note - Text 57-year-old diabetic male patient has history of osteo-of the right foot second toe patient went with amputation of the second toe at metatarsophalangeal joint we did the primary closure dressings intact patient is afebrile continue with IV antibiotic advise nonweightbearing
[2022-10-20 20:50] LABS: Glucose,Whole Blood 204 mg/dL (70-110)
[2022-10-20] MEDS ORDERED: ONDANSETRON 4 MG/2 ML VIAL IVP STA (21:18)
[2022-10-20] MEDS ORDERED: MORPHINE SULFATE 2 MG/ML SYRINGE IVP STA (21:19)
[2022-10-21] MEDS: AMPICILLIN-SULBACTAM 3 GM in SODIUM CHLORIDE 0.9% 100 ML IVPB SCH ×4 (00:36→17:05)
[2022-10-21] MEDS: HEPARIN SODIUM,PORCINE 5,000 UNIT/ML 1 ML VIAL SQ SCH ×3 (00:37→15:53)
[2022-10-21] MEDS ORDERED: traMADol 50 MG TAB PO STA (00:46)
[2022-10-21] MEDS ORDERED: MORPHINE SULFATE 2 MG/ML SYRINGE IVP STA (06:08)
[2022-10-21] MEDS: ONDANSETRON 4 MG/2 ML VIAL IVP STA ×2 (06:17→08:24)
[2022-10-21 07:23] LABS: Glucose,Whole Blood 162 mg/dL (70-110)
[2022-10-21] MEDS: EZETIMIBE 10 MG TAB PO SCH (08:24)
[2022-10-21] MEDS: ASPIRIN 81 MG PO SCH (08:24)
[2022-10-21] MEDS: PANTOPRAZOLE 40 MG TABLET PO SCH (08:24)
[2022-10-21] MEDS: VANCOMYCIN 1,750 MG in SODIUM CHLORIDE 0.9% 500 ML 500 ML IVPB SCH ×2 (08:24→18:34)
[2022-10-21] MEDS: LACTOBACILLUS ACIDOPHILUS/PECT 1 EACH CAPSULE PO SCH ×2 (08:24→21:20)
[2022-10-21] MEDS: LISINOPRIL-HCTZ 20-12.5 MG 1 EACH TAB PO SCH (08:25)
[2022-10-21] MEDS: INSULIN ASPART (NovoLOG) 100 UNIT/ML VIAL SQ SCH ×4 (08:25→21:20)
[2022-10-21] MEDS: HYDROcodone/APAP 5-325MG 1 EACH TAB PO PRN (08:31)
[2022-10-21 09:11] LABS: BUN/Creat Ratio 13.75 Ratio (12.00-20.00); Carbon Dioxide 26.3 mmol/L (21.6-31.8); Chloride 103 mmol/L (96-109); Glucose 211 mg/dL (70-110); Potassium 4.1 mmol/L (3.5-5.5); Sodium 139 mmol/L (135-145)
[2022-10-21 12:37] LABS: Glucose,Whole Blood 134 mg/dL (70-110)
[2022-10-21] MEDS: MORPHINE SULFATE 4 MG/ML SYRINGE IVP PRN ×3 (12:43→21:30)
--- NOTE | 2022-10-21 13:26 | P.PN ---
Subjective Progress Note Date: 10/21/22 57-year-old male with history of hypertension, diabetes presenting with worsening right second toe swelling. In the ED, temperature was 98.3, pulse 90, respiratory rate 20, blood pressure 155/84, saturating at 99% on room air. CBC shows WBC 7.1, hemoglobin 13, sodium 137, potassium 3.9, bicarb 21, creatinine 0.91, glucose 180. Lactic acid 1.0. Right foot x-ray shows osteomyelitis involving the distal phalanx of the right second toe. Patient was started on Unasyn and vancomycin in the ED. Patient being admitted for osteomyelitis. Now status post right foot second toe amputation at MTP joint. Waiting for OR cultures. 10/21 Patient was seen and examined. He reports continued pain in his R foot. States that [place] makes him nauseated. BMP shows glucose of 211. Wound culture shows coagulase negative staph. Blood cultures prelim negative. Vitals Signs: BP 112/72. HR 62. RR 20. 99% on RA. T 98.1F. General: nontoxic, no distress, appears at stated age Derm: warm, dry, dressing clean, dry, intact Head: atraumatic, normocephalic, symmetric Eyes: EOMI, no lid lag, anicteric sclera ENT: Nose and ears atraumatic Neck: No thyromegaly, supple Cardiovascular: good distal perfusion in all 4 extremities, no edema Lungs: breathing comfortably, no accessory muscle use Ext: no gross muscle atrophy, muscle strength muscle strength 5 out of 5 in all 4 extremities, no contractures Psych: Alert, oriented, appropriate affect Right second toe osteomyelitis, status post amputation on 10/19 Diabetic foot infection Type 2 diabetes Hypertension Coronary artery disease, recent cath Based on my assessment of this patient, this patient meets a high complexity level of care. Patient has an acute diagnosis of right second toe OM status post amputation 10/19 that poses a threat to life or bodily function. I have reviewed the following sql server consultant notes: I have reviewed the results of the following tests: BMP. WCx and BCx as above. I have ordered the following tests: BMP as Vancomycin is nephrotoxic. I have discussed the care of this patient with the following independent historian: I have independently interpreted the following test below: I have discussed the management of this patient with the following physician: Objective - Vital Signs Vital signs: Vital Signs Temp 98.1 F 10/21/22 12:17 Pulse 62 10/21/22 12:17 Resp 20 10/21/22 12:17 BP 112/72 10/21/22 12:17 Pulse Ox 99 10/21/22 12:17 FiO2 Intake & Output 10/20/22 10/21/22 10/21/22 18:59 06:59 18:59 Other: Voiding Method Toilet Toilet Toilet # Voids 1 1 # Bowel Movements 2 - Labs CBC & Chem 7: 10/20/22 06:23 10/21/22 05:32 Labs: Abnormal Lab Results - Last 24 Hours (Table) 10/20/22 10/20/22 10/20/22 Range/Units 06:23 17:09 20:47 WBC 10.06 H (4.50-10.00) X 10*3/uL Glucose (70-110) mg/dL POC Glucose (mg/dL) 181 H 204 H (70-110) mg/dL 10/21/22 10/21/22 10/21/22 Range/Units 05:32 07:21 12:34 WBC (4.50-10.00) X 10*3/uL Glucose 211 H (70-110) mg/dL POC Glucose (mg/dL) 162 H 134 H (70-110) mg/dL Microbiology - Last 24 Hours (Table) 10/19/22 08:15 Gram Stain - Preliminary Toe - Right Second Tissue Culture - Final Coagulase Negative Staph 10/17/22 08:21 Blood Culture - Preliminary Blood
--- NOTE | 2022-10-21 15:41 | P.PN ---
Progress Note - Text 57-year-old diabetic male patient had a amputation right foot big toe for osteo- and a gangrene changes patient is an IV antibiotic and care of infectious disease today we have changed the dressing no drainage or redness noted stitches are intact advise nonweightbearing and patient is under care of infectious disease we'll change her dressing on if patient goes on halfway then we will follow-up in my office next week nonweightbearing on right foot
[2022-10-21 17:00] LABS: Glucose,Whole Blood 158 mg/dL (70-110)
[2022-10-21] MEDS: ONDANSETRON 4 MG/2 ML VIAL IVP PRN (17:05)
[2022-10-21 21:07] LABS: Glucose,Whole Blood 141 mg/dL (70-110)
[2022-10-22] MEDS: AMPICILLIN-SULBACTAM 3 GM in SODIUM CHLORIDE 0.9% 100 ML IVPB SCH ×3 (00:24→13:02)
[2022-10-22] MEDS: HEPARIN SODIUM,PORCINE 5,000 UNIT/ML 1 ML VIAL SQ SCH ×3 (00:24→15:33)
[2022-10-22] MEDS: MORPHINE SULFATE 4 MG/ML SYRINGE IVP PRN ×4 (01:47→21:00)
[2022-10-22 06:27] LABS: African American GFR (CKD) >90 (>60 ml/min/1.73 sqM); Anion Gap 8 mmol/L; Blood Urea Nitrogen 14 mg/dL (9-20); Calcium 9.3 mg/dL (8.4-10.2); Carbon Dioxide 31 mmol/L (22-30); Chloride 99 mmol/L (98-107); Glucose 185 mg/dL (74-99); Non-African American GFR(CKD) >90 (>60 ml/min/1.73 sqM); Potassium 4.1 mmol/L (3.5-5.1); Sodium 138 mmol/L (137-145)
[2022-10-22] MEDS: VANCOMYCIN 1,750 MG in SODIUM CHLORIDE 0.9% 500 ML 500 ML IVPB SCH (07:18)
[2022-10-22 07:26] LABS: Glucose,Whole Blood 176 mg/dL (70-110)
[2022-10-22] MEDS ORDERED: HYDROmorphone 0.5 MG/0.5 ML SYRINGE IVP PRN (08:07)
[2022-10-22] MEDS ORDERED: ONDANSETRON 4 MG/2 ML VIAL IVP PRN (08:07)
[2022-10-22] MEDS ORDERED: LACTATED RINGERS 1,000 ML IV SCH (08:07)
[2022-10-22] MEDS: PANTOPRAZOLE 40 MG TABLET PO SCH (08:39)
[2022-10-22] MEDS: EZETIMIBE 10 MG TAB PO SCH (08:40)
[2022-10-22] MEDS: ASPIRIN 81 MG PO SCH (08:40)
[2022-10-22] MEDS: LACTOBACILLUS ACIDOPHILUS/PECT 1 EACH CAPSULE PO SCH ×2 (08:40→20:58)
[2022-10-22] MEDS: INSULIN ASPART (NovoLOG) 100 UNIT/ML VIAL SQ SCH ×4 (08:40→20:59)
[2022-10-22] MEDS: LISINOPRIL-HCTZ 20-12.5 MG 1 EACH TAB PO SCH (08:40)
[2022-10-22] MEDS: ONDANSETRON 4 MG/2 ML VIAL IVP PRN ×2 (08:45→21:00)
--- NOTE | 2022-10-22 10:57 | P.PN ---
Subjective Progress Note Date: 10/20/22 Principal diagnosis: Right second toe diabetic foot infection/osteomyelitis Patient is a 57-year-old male with a past medical history significant for diabetes mellitus patient did have a history of right big toe diabetic foot infection requiring amputation of the right big toe on 02/17/2022 patient culture that was positive for Klebsiella Enterococcus and anaerobes, no presented to hospital with a right second toe pain swelling redness and nonhealing for over 3 months with evidence of Osteomyelitis on the plain x-rays. Patient is status post amputation of right second toe 10/19/2022 On today's evaluation that is 10/20/2022, the patient continues to be afebrile, the patient is breathing comfortably on room air, the patient denies chest pain or shortness of breath and no significant cough, the patient denies nausea no vomiting no abdominal pain patient be complaining of pain to the right second toe amputation site and wants the pain medication to be adjusted up Patient did have a white count of 10.06, creatinine 0.77, blood culture negative local cultures pending Objective - Vital Signs Vital signs: Vital Signs Temp 98.5 F 10/20/22 11:15 Pulse 82 10/20/22 11:15 Resp 15 10/20/22 11:15 BP 118/71 10/20/22 11:15 Pulse Ox 98 10/20/22 11:15 FiO2 Intake & Output 10/19/22 10/20/22 10/20/22 18:59 06:59 18:59 Intake Total 685 Output Total 10 Balance 675 Intake: IV 685 Output: Estimated Blood Loss 10 Other: Voiding Method Toilet Toilet Toilet # Voids 1 2 # Bowel Movements 1 1 - Exam GENERAL DESCRIPTION: Middle-age male lying in bed in no distress RESPIRATORY SYSTEM: Unlabored breathing , decreased breath sounds at bases HEART: S1 S2 regular rate and rhythm , ABDOMEN: Soft , no tenderness EXTREMITIES: Right second toe amputation site is currently dressed in OR dressing - Labs CBC & Chem 7: 10/20/22 06:23 10/22/22 06:00 Labs: Abnormal Lab Results - Last 24 Hours (Table) 10/19/22 10/19/22 10/19/22 Range/Units 17:04 17:52 20:43 Sodium (137-145) mmol/L Glucose 143 H (74-99) mg/dL POC Glucose (mg/dL) 158 H 189 H (70-110) mg/dL 10/20/22 10/20/22 10/20/22 Range/Units 06:23 07:25 11:55 Sodium 136 L (137-145) mmol/L Glucose 182 H (74-99) mg/dL POC Glucose (mg/dL) 143 H 162 H (70-110) mg/dL Microbiology - Last 24 Hours (Table) 10/19/22 08:15 Gram Stain - Preliminary Toe - Right Second Tissue Culture - Preliminary 10/17/22 08:21 Blood Culture - Preliminary Blood Assessment and Plan (1) Osteomyelitis of toe of right foot Current Visit: Yes Status: Acute Code(s): M86.9 - OSTEOMYELITIS, UNSPECIFIED SNOMED Code(s): 205808612 (2) Diabetic foot infection Current Visit: No Status: Acute Code(s): E11.628 - TYPE 2 DIABETES MELLITUS WITH OTHER SKIN COMPLICATIONS; L08.9 - LOCAL INFECTION OF THE SKIN AND SUBCUTANEOUS TISSUE, UNSP SNOMED Code(s): 931544016 (3) Failure of outpatient treatment Current Visit: No Status: Acute Code(s): Z78.9 - OTHER SPECIFIED HEALTH STATUS SNOMED Code(s): 359867648 Plan: 1patient with right second toe diabetic foot infection osteomyelitis in this patient who did have history of right big toe osteomyelitis in February 2022 requiring amputation culture that was positive for Enterococcus Klebsiella and anaerobes patient has been on multiple course of antibiotic for his right second toe without any healing however he did not have any culture from the right second toe x-ray is highly suspicious for osteomyelitis 2- patient is status post amputation of the right second toe completed on 10/19/2022 and culture which are currently pending 3-patient to continue vancomycin along with Unasyn while waiting for the OR cultures to be finalize to determine his discharge antibiotics Dictation was produced using [employer] dictation software. please excuse any grammatical, word or spelling errors. Time with Patient: Less than 30
--- NOTE | 2022-10-22 10:59 | P.PN ---
Subjective Progress Note Date: 10/21/22 Principal diagnosis: Right second toe diabetic foot infection/osteomyelitis Patient is a 57-year-old male with a past medical history significant for diabetes mellitus patient did have a history of right big toe diabetic foot infection requiring amputation of the right big toe on 02/17/2022 patient culture that was positive for Klebsiella Enterococcus and anaerobes, no presented to hospital with a right second toe pain swelling redness and nonhealing for over 3 months with evidence of Osteomyelitis on the plain x-rays. Patient is status post amputation of right second toe 10/19/2022 On today's evaluation that is 10/21/2022, the patient remains to be afebrile, t he patient is breathing comfortably on room air, the patient denies chest pain or shortness of breath and no significant cough, the patient denies nausea no vomiting no abdominal pain, the patient pain to the right second toe amputation site controlled with her pain medication Patient did have a white count of 10.06 as of yesterday no CBC was done today, creatinine 0.8, blood culture negative, local cultures coagulase negative staph Objective - Vital Signs Vital signs: Vital Signs Temp 97.9 F 10/21/22 08:00 Pulse 72 10/21/22 08:00 Resp 20 10/21/22 08:00 BP 117/75 10/21/22 08:00 Pulse Ox 97 10/21/22 08:00 FiO2 Intake & Output 10/20/22 10/21/22 10/21/22 18:59 06:59 18:59 Other: Voiding Method Toilet Toilet Toilet # Voids 1 1 # Bowel Movements 2 - Exam GENERAL DESCRIPTION: Middle-age male lying in bed in no distress RESPIRATORY SYSTEM: Unlabored breathing , decreased breath sounds at bases HEART: S1 S2 regular rate and rhythm , ABDOMEN: Soft , no tenderness EXTREMITIES: Right second toe amputation site is currently dressed, dressing change by the surgeon mention stitches intact no redness or drainage - Labs CBC & Chem 7: 10/20/22 06:23 10/22/22 06:00 Labs: Abnormal Lab Results - Last 24 Hours (Table) 10/20/22 10/20/22 10/20/22 Range/Units 06:23 11:55 17:09 WBC 10.06 H (4.50-10.00) X 10*3/uL Glucose (70-110) mg/dL POC Glucose (mg/dL) 162 H 181 H (70-110) mg/dL 10/20/22 10/21/22 10/21/22 Range/Units 20:47 05:32 07:21 WBC (4.50-10.00) X 10*3/uL Glucose 211 H (70-110) mg/dL POC Glucose (mg/dL) 204 H 162 H (70-110) mg/dL Microbiology - Last 24 Hours (Table) 10/19/22 08:15 Gram Stain - Preliminary Toe - Right Second Tissue Culture - Final Coagulase Negative Staph 10/17/22 08:21 Blood Culture - Preliminary Blood Assessment and Plan (1) Osteomyelitis of toe of right foot Current Visit: Yes Status: Acute Code(s): M86.9 - OSTEOMYELITIS, UNSPECIFIED SNOMED Code(s): 081131512 (2) Diabetic foot infection Current Visit: No Status: Acute Code(s): E11.628 - TYPE 2 DIABETES MELLITUS WITH OTHER SKIN COMPLICATIONS; L08.9 - LOCAL INFECTION OF THE SKIN AND SUBCUTANEOUS TISSUE, UNSP SNOMED Code(s): 987055477 (3) Failure of outpatient treatment Current Visit: No Status: Acute Code(s): Z78.9 - OTHER SPECIFIED HEALTH STATUS SNOMED Code(s): 262118867 Plan: 1patient with right second toe diabetic foot infection osteomyelitis in this patient who did have history of right big toe osteomyelitis in February 2022 requiring amputation culture that was positive for Enterococcus Klebsiella and anaerobes patient has been on multiple course of antibiotic for his right second toe without any healing however he did not have any culture from the right second toe x-ray is highly suspicious for osteomyelitis 2- patient is status post amputation of the right second toe completed on 10/19/2022 and culture which are currently growing cognition is negative staph 3-patient to continue vancomycin along with Unasyn while waiting for the OR cultures to be finalize, plan on short course of oral antibiotics on discharge Dictation was produced using [employer] dictation software. please excuse any grammatical, word or spelling errors. Time with Patient: Less than 30
[2022-10-22 12:25] LABS: Glucose,Whole Blood 210 mg/dL (70-110)
--- NOTE | 2022-10-22 13:14 | P.PN ---
Subjective Progress Note Date: 10/22/22 Principal diagnosis: Right second toe diabetic foot infection/osteomyelitis Patient is a 57-year-old male with a past medical history significant for diabetes mellitus patient did have a history of right big toe diabetic foot infection requiring amputation of the right big toe on 02/17/2022 patient culture that was positive for Klebsiella Enterococcus and anaerobes, no presented to hospital with a right second toe pain swelling redness and nonhealing for over 3 months with evidence of Osteomyelitis on the plain x-rays. Patient is status post amputation of right second toe 10/19/2022 On today's evaluation that is 10/22/2022, the patient denies any fever or any c hills, the patient is breathing comfortably on room air, the patient denies chest pain or shortness of breath and no significant cough, the patient denies nausea no vomiting no abdominal pain, the patient pain to the right second toe amputation site controlled, no new symptoms Patient did have a white count of 10.06 as of 10/20/2022 no CBC was done today, creatinine 0.82, blood culture negative, local cultures coagulase negative staph Objective - Vital Signs Vital signs: Vital Signs Temp 97.9 F 10/22/22 07:49 Pulse 93 10/22/22 07:49 Resp 20 10/22/22 07:49 BP 112/78 10/22/22 07:49 Pulse Ox 96 10/22/22 07:49 FiO2 Intake & Output 10/21/22 10/22/22 10/22/22 18:59 06:59 18:59 Other: Voiding Method Toilet Toilet # Voids 4 - Exam GENERAL DESCRIPTION: Middle-age male lying in bed in no distress RESPIRATORY SYSTEM: Unlabored breathing , decreased breath sounds at bases HEART: S1 S2 regular rate and rhythm , ABDOMEN: Soft , no tenderness EXTREMITIES: Right second toe amputation site is currently dressed, dressing change by the surgeon mention stitches intact no redness or drainage - Labs CBC & Chem 7: 10/20/22 06:23 10/22/22 06:00 Labs: Abnormal Lab Results - Last 24 Hours (Table) 10/21/22 10/21/22 10/21/22 Range/Units 12:34 16:59 21:05 Carbon Dioxide (22-30) mmol/L Glucose (74-99) mg/dL POC Glucose (mg/dL) 134 H 158 H 141 H (70-110) mg/dL 10/22/22 10/22/22 Range/Units 06:00 07:24 Carbon Dioxide 31 H (22-30) mmol/L Glucose 185 H (74-99) mg/dL POC Glucose (mg/dL) 176 H (70-110) mg/dL Microbiology - Last 24 Hours (Table) 10/19/22 08:15 Anaerobic Culture - Preliminary Toe - Right Second 10/19/22 08:15 Gram Stain - Preliminary Toe - Right Second Tissue Culture - Final Coagulase Negative Staph Assessment and Plan (1) Osteomyelitis of toe of right foot Current Visit: Yes Status: Acute Code(s): M86.9 - OSTEOMYELITIS, UNSPECIFIED SNOMED Code(s): 134153877 (2) Diabetic foot infection Current Visit: No Status: Acute Code(s): E11.628 - TYPE 2 DIABETES MELLITUS WITH OTHER SKIN COMPLICATIONS; L08.9 - LOCAL INFECTION OF THE SKIN AND SUBCUTANEOUS TISSUE, UNSP SNOMED Code(s): 231579505 (3) Failure of outpatient treatment Current Visit: No Status: Acute Code(s): Z78.9 - OTHER SPECIFIED HEALTH STA TUS SNOMED Code(s): 295329615 Plan: 1patient with right second toe diabetic foot infection osteomyelitis in this patient who did have history of right big toe osteomyelitis in February 2022 requiring amputation culture that was positive for Enterococcus Klebsiella and anaerobes patient has been on multiple course of antibiotic for his right second toe without any healing however he did not have any culture from the right second toe x-ray is highly suspicious for osteomyelitis 2- patient is status post amputation of the right second toe completed on 10/19/2022 and culture which are currently growing coagulase negative staph 3-patient to continue vancomycin along with Unasyn however no need for IV antibiotics on discharge, consider short course of oral doxycycline discussed with the admitting team Dictation was produced using [employer] dictation software. please excuse any grammatical, word or spelling errors. Time with Patient: Less than 30
[2022-10-22] MEDS: MAG HYDROX/AL HYDROX/SIMETH 30 ML CUP PO PRN (13:42)
[2022-10-22 13:53] VITALS: BMI 31.1
--- NOTE | 2022-10-22 13:55 | P.PN ---
Subjective Progress Note Date: 10/22/22 57-year-old male with history of hypertension, diabetes presenting with worsening right second toe swelling. In the ED, temperature was 98.3, pulse 90, respiratory rate 20, blood pressure 155/84, saturating at 99% on room air. CBC shows WBC 7.1, hemoglobin 13, sodium 137, potassium 3.9, bicarb 21, creatinine 0.91, glucose 180. Lactic acid 1.0. Right foot x-ray shows osteomyelitis involving the distal phalanx of the right second toe. Patient was started on Unasyn and vancomycin in the ED. Patient being admitted for osteomyelitis. Now status post right foot second toe amputation at MTP joint. Waiting for OR cultures. 10/21 Patient was seen and examined. He reports continued pain in his R foot. States that [place] makes him nauseated. BMP shows glucose of 211. Wound culture shows coagulase negative staph. Blood cultures prelim negative. 10/22 Patient was seen and examined. He reports neuropathic pain in his R foot. BMP shows bicarb of 31. Pending SNF, likely discharge tomorrow. Vitals Signs: BP 138/80. HR 68. RR 20. 98% on RA. T 98.1F. General: nontoxic, no distress, appears at stated age Derm: warm, dry, dressing clean, dry, intact Head: atraumatic, normocephalic, symmetric Eyes: EOMI, no lid lag, anicteric sclera ENT: Nose and ears atraumatic Neck: No thyromegaly, supple Cardiovascular: good distal perfusion in all 4 extremities, no edema Lungs: breathing comfortably, no accessory muscle use Ext: no gross muscle atrophy, muscle strength muscle strength 5 out of 5 in all 4 extremities, no contractures Psych: Alert, oriented, appropriate affect Right second toe osteomyelitis, status post amputation on 10/19 Diabetic foot infection Type 2 diabetes Hypertension Coronary artery disease, recent cath Based on my assessment of this patient, this patient meets a moderate complexity level of care. Patient has an acute diagnosis of right second toe OM status post amputation 10/19 that poses a threat to life or bodily function. I have reviewed the following security sales consultant notes: I have reviewed the results of the following tests: BMP. I have ordered the following tests: I have discussed the care of this patient with the following independent historian: I have independently interpreted the following test below: I have discussed the management of this patient with the following physician: Discussed with Dr. Mendoza, plans for Doxycycline on discharge. Objective - Vital Signs Vital signs: Vital Signs Temp 98.1 F 10/22/22 11:19 Pulse 68 10/22/22 11:19 Resp 20 10/22/22 11:19 BP 138/80 10/22/22 11:19 Pulse Ox 98 10/22/22 11:19 FiO2 Intake & Output 10/21/22 10/22/22 10/22/22 18:59 06:59 18:59 Other: Voiding Method Toilet Toilet # Voids 4 1 - Labs CBC & Chem 7: 10/20/22 06:23 10/22/22 06:00 Labs: Abnormal Lab Results - Last 24 Hours (Table) 10/21/22 10/21/22 10/22/22 Range/Units 16:59 21:05 06:00 Carbon Dioxide 31 H (22-30) mmol/L Glucose 185 H (74-99) mg/dL POC Glucose (mg/dL) 158 H 141 H (70-110) mg/dL 10/22/22 10/22/22 Range/Units 07:24 12:23 Carbon Dioxide (22-30) mmol/L Glucose (74-99) mg/dL POC Glucose (mg/dL) 176 H 210 H (70-110) mg/dL Microbiology - Last 24 Hours (Table) 10/17/22 08:21 Blood Culture - Final Blood 10/19/22 08:15 Anaerobic Culture - Preliminary Toe - Right Second
[2022-10-22] MEDS: PREGABALIN 50 MG CAP PO SCH ×2 (14:31→20:59)
[2022-10-22 17:17] LABS: Glucose,Whole Blood 164 mg/dL (70-110)
[2022-10-22 20:24] LABS: Glucose,Whole Blood 196 mg/dL (70-110)
[2022-10-22] MEDS: DOXYCYCLINE 100 MG CAP PO SCH (20:59)
[2022-10-23] MEDS: MAG HYDROX/AL HYDROX/SIMETH 30 ML CUP PO PRN (00:39)
[2022-10-23] MEDS: HEPARIN SODIUM,PORCINE 5,000 UNIT/ML 1 ML VIAL SQ SCH ×3 (00:40→16:58)
[2022-10-23 06:32] LABS: African American GFR (CKD) >90 (>60 ml/min/1.73 sqM); Non-African American GFR(CKD) 89 (>60 ml/min/1.73 sqM)
[2022-10-23 07:00] LABS: Glucose,Whole Blood 150 mg/dL (70-110)
[2022-10-23] MEDS: INSULIN ASPART (NovoLOG) 100 UNIT/ML VIAL SQ SCH ×2 (07:46→12:46)
[2022-10-23] MEDS: LACTOBACILLUS ACIDOPHILUS/PECT 1 EACH CAPSULE PO SCH (08:12)
[2022-10-23] MEDS: DOXYCYCLINE 100 MG CAP PO SCH (08:12)
[2022-10-23] MEDS: ONDANSETRON 4 MG/2 ML VIAL IVP PRN ×2 (08:12→17:04)
[2022-10-23] MEDS: PREGABALIN 50 MG CAP PO SCH (08:12)
[2022-10-23] MEDS: LISINOPRIL-HCTZ 20-12.5 MG 1 EACH TAB PO SCH (08:12)
[2022-10-23] MEDS: ASPIRIN 81 MG PO SCH (08:12)
[2022-10-23] MEDS: MORPHINE SULFATE 4 MG/ML SYRINGE IVP PRN (08:12)
[2022-10-23] MEDS: EZETIMIBE 10 MG TAB PO SCH (08:12)
[2022-10-23] MEDS: PANTOPRAZOLE 40 MG TABLET PO SCH (08:12)
--- NOTE | 2022-10-23 08:50 | PN ---
PROGRESS NOTE The patient had a right foot second toe amputation. Today, we have changed the dressing. The incision site is clean. No discharge or redness noted. If the patient goes home, follow up in my office on Thursday. Advised nonweightbearing. MMODL / IJN: [id number] /
[2022-10-23 11:45] LABS: Glucose,Whole Blood 182 mg/dL (70-110)
[2022-10-23 11:49] VITALS: BP 114/76; PULSE 72; RESP 17; TEMP 98.4
--- NOTE | 2022-10-23 13:21 | P.DS ---
Providers Date of admission: 10/17/22 10:05 Expected date of discharge: 10/23/22 Attending physician: Shaila Baron MD Consults: 10/17/22 10:05 Consult Physician Urgent Consulting Provider: Simon Kimble Consult Reason/Comments: right foot osteomyelitis Do you want consulting provider notified?: Yes Consult Physician Urgent Consulting Provider: Hu Mendoza Consult Reason/Comments: right foot osteomyelitis Do you want consulting provider notified?: Yes Primary care physician: Deyvi Hurtado [facility] Course: 57-year-old male with history of hypertension, diabetes presenting with worsening right second toe swelling. In the ED, temperature was 98.3, pulse 90, respiratory rate 20, blood pressure 155/84, saturating at 99% on room air. CBC shows WBC 7.1, hemoglobin 13, sodium 137, potassium 3.9, bicarb 21, creatinine 0.91, glucose 180. Lactic acid 1.0. Right foot x-ray shows osteomyelitis involving the distal phalanx of the right second toe. Patient was started on Unasyn and vancomycin in the ED. Patient being admitted for osteomyelitis. Now status post right foot second toe amputation at MTP joint. Waiting for OR cultures. 10/21 Patient was seen and examined. He reports continued pain in his R foot. States that [place] makes him nauseated. BMP shows glucose of 211. Wound culture shows coagulase negative staph. Blood cultures prelim negative. 10/22 Patient was seen and examined. He reports neuropathic pain in his R foot. BMP shows bicarb of 31. Pending SNF, likely discharge tomorrow. 10/23 Patient was seen and examined. He reports well controlled pain in his right foot. Case discussed with Dr. Mendoza who recommends Doxycycline by mouth for 14 days. Advised to follow up with PCP within 1-[address] Mendoza within 1 week of discharge. Plans for discharge to SNF if insurance authorization goes through. Pertinent studies includes foot x-ray. Pertinent procedures include right foot second toe amputation at MTP joint. General: nontoxic, no distress, appears at stated age Derm: warm, dry, dressing clean, dry, intact Head: atraumatic, normocephalic, symmetric Eyes: EOMI, no lid lag, anicteric sclera ENT: Nose and ears atraumatic Neck: No thyromegaly, supple Cardiovascular: good distal perfusion in all 4 extremities, no edema, Normal S1 S2 Lungs: breathing comfortably, no accessory muscle use, CTA bilaterally Ext: no gross muscle atrophy, muscle strength muscle strength 5 out of 5 in all 4 extremities, no contractures Psych: Alert, oriented, appropriate affect Discharge Diagnosis: Right second toe osteomyelitis, status post amputation on 10/19 Diabetic foot infection Type 2 diabetes Hypertension Coronary artery disease, recent cath This complex discharge took 35 minutes to complete. Patient Condition at Discharge: Stable Plan - Discharge Summary New Discharge Prescriptions: New Aspirin 81 mg PO DAILY tab Loperamide [Imodium] 2 mg PO QID PRN cap PRN Reason: Diarrhea Pregabalin [Lyrica] 50 mg PO BID #6 cap Ezetimibe [Zetia] 10 mg PO DAILY tab Mag Hydrox/Al Hydrox/Simeth [Maalox] 30 ml PO Q4HR PRN ml PRN Reason: Gi Upset HYDROcodone/APAP 5-325MG [Diamond 5-325] 1 each PO Q6HR PRN #12 tab PRN Reason: Pain Acetaminophen Tab [Tylenol] 650 mg PO Q6HR PRN tab PRN Reason: Fever And/ Or Pain Doxycycline [Vibramycin] 100 mg PO BID 14 Days #28 cap Continue Glimepiride [Amaryl] 2 mg PO DAILY Omeprazole [PriLOSEC] 20 mg PO AC-BID Lisinopril-Hctz 20-12.5 mg [Zestoretic 20-12.5] 1 tab PO DAILY Empagliflozin [Jardiance] 25 mg PO DAILY Tirzepatide [Mounjaro] 5 mg SQ TH Discontinued Sulfamethox-Tmp 800-160Mg [Bactrim Ds] 1 tab PO Q12HR Discharge Medication List Lisinopril-Hctz 20-12.5 mg [Zestoretic 20-12.5] 1 tab PO DAILY 02/13/22 [History] Empagliflozin [Jardiance] 25 mg PO DAILY 10/03/22 [History] Glimepiride [Amaryl] 2 mg PO DAILY 10/17/22 [History] Omeprazole [PriLOSEC] 20 mg PO AC-BID 10/17/22 [History] Tirzepatide [Mounjaro] 5 mg SQ TH 10/17/22 [History] Acetaminophen Tab [Tylenol] 650 mg PO Q6HR PRN tab 10/23/22 [Rx] Aspirin 81 mg PO DAILY tab 10/23/22 [Rx] Doxycycline [Vibramycin] 100 mg PO BID 14 Days #28 cap 10/23/22 [Rx] Ezetimibe [Zetia] 10 mg PO DAILY tab 10/23/22 [Rx] HYDROcodone/APAP 5-325MG [Diamond 5-325] 1 each PO Q6HR PRN #12 tab 10/23/22 [Rx] Loperamide [Imodium] 2 mg PO QID PRN cap 10/23/22 [Rx] Mag Hydrox/Al Hydrox/Simeth [Maalox] 30 ml PO Q4HR PRN ml 10/23/22 [Rx] Pregabalin [Lyrica] 50 mg PO BID #6 cap 10/23/22 [Rx] Follow up Appointment(s)/Referral(s): Deyvi Hurtado MD [Primary Care Provider] - 1-2 days Hu Mendoza MD [STAFF PHYSICIAN] - 1 Week Activity/Diet/Wound Care/Special Instructions: dressing change to right foot every other day. 4x4 and kerlix wrap. Discharge Disposition: TRANSFER TO SNF/ECF
[2022-10-23] MEDS: HYDROcodone/APAP 5-325MG 1 EACH TAB PO PRN (16:59)
== END 2022-10-23 17:30 | DRG 314 ==
LOC: EC 07:05 → 5NMEDONC 10:05
PROVIDERS: ADMIT Internal Medicine; ATTEND Internal Medicine
PROC: 0Y6R0Z0 Detachment at Right 2nd Toe, Complete, Open Approach (ICD-10-PCS; principal; 2022-10-19 08:00)
DX: E11.52 Type 2 diabetes mellitus with diabetic peripheral angiopathy with gangrene (principal); E11.40 Type 2 diabetes mellitus with diabetic neuropathy, unspecified; E11.628 Type 2 diabetes mellitus with other skin complications; E11.69 Type 2 diabetes mellitus with other specified complication; I10 Essential (primary) hypertension; I25.10 Atherosclerotic heart disease of native coronary artery without angina pectoris; M86.171 Other acute osteomyelitis, right ankle and foot; Z79.84 Long term (current) use of oral hypoglycemic drugs; Z87.442 Personal history of urinary calculi; Z89.411 Acquired absence of right great toe; Z88.8 Allergy status to other drugs, medicaments and biological substances; Z87.891 Personal history of nicotine dependence
CPT/HCPCS: 36415; 80048; 80053; 80202; 82565; 83036; 83605; 84443; 85025; 87040; 87070; 87075; 87205; 96365; 96366; 96367; 99285

== ENCOUNTER 2022-12-16 09:26 | Inpatient (IN) | payer OTHER ==
[2022-12-16] MEDS ORDERED: SODIUM CHLORIDE 0.9% 1,000 ML IV ONE (11:39)
[2022-12-16 11:45] LABS: Glucose,Whole Blood 147 mg/dL (70-110)
[2022-12-16] MEDS ORDERED: SODIUM CHLORIDE 0.9% 1,000 ML IV SCH (12:45)
[2022-12-16] MEDS ORDERED: LIDOCAINE 1% INJ 10MG/ML (20 ML MDV) ONE (13:19)
[2022-12-16] MEDS ORDERED: LIDOCAINE 1% INJ 10MG/ML (20 ML MDV) SQ ONE (13:40)
[2022-12-16] MEDS ORDERED: MIDAZOLAM 2 MG/2 ML VIAL IVP ONE (13:41)
[2022-12-16] MEDS ORDERED: fentaNYL (PF) 50 MCG/ML 2 ML AMP ONE (13:42)
[2022-12-16] MEDS ORDERED: fentaNYL (PF) 50 MCG/ML 2 ML AMP IVP ONE (13:43)
[2022-12-16] MEDS ORDERED: ALTEPLASE 2 MG VIAL (CATHFLO) IV STA (14:01)
[2022-12-16] MEDS ORDERED: ACETAMINOPHEN TAB 325 MG TAB PO PRN (14:17)
[2022-12-16] MEDS ORDERED: ALTEPLASE 6 MG in SODIUM CHLORIDE 0.9% 144 ML IV ONE (14:17)
[2022-12-16] MEDS ORDERED: SENNOSIDES-DOCUSATE SODIUM 1 EACH TAB PO PRN (14:17)
[2022-12-16] MEDS ORDERED: ALTEPLASE 2 MG VIAL (CATHFLO) IV ONE (14:19)
[2022-12-16 14:40] LABS: Glucose,Whole Blood 138 mg/dL (70-110)
[2022-12-16] MEDS: HEPARIN SOD,PORK IN 0.45% NACL 25,000 UNIT in 0.45% NACL 1 250ML.BAG IV SCH (14:56)
[2022-12-16] MEDS: SODIUM CHLORIDE 0.9% 1,000 ML IV SCH ×2 (14:58→14:59)
[2022-12-16] MEDS: ALTEPLASE 6 MG in SODIUM CHLORIDE 0.9% 144 ML IV ONE ×2 (14:59→15:01)
[2022-12-16 15:11] LABS: Basophils # (A) 0.1 k/uL (0-0.2); Basophils % (A) 0 %; Eosinophils # (A) 0.3 k/uL (0-0.7); Eosinophils % (A) 2 %; HGB 13.9 gm/dL (13.0-17.5); Lymphocytes # (A) 1.7 k/uL (1.0-4.8); Lymphocytes % (A) 9 %; MCH 31.2 pg (25.0-35.0); MCHC 34.8 g/dL (31.0-37.0); MCV 89.5 fL (80.0-100.0); Mean Platelet Volume 7.2; Monocytes # (A) 1.5 k/uL (0-1.0); Monocytes % (A) 8 %; Neutrophils # (A) 15.2 k/uL (1.3-7.7); Neutrophils % (A) 80 %; Platelet Count 274 k/uL (150-450); RBC 4.47 m/uL (4.30-5.90); RDW 13.4 % (11.5-15.5)
[2022-12-16 15:30] LABS: INR 1.1 (<1.2); Partial Thromboplastin Time 29.6 sec (22.0-30.0); Prothrombin Time 11.1 sec (9.0-12.0)
[2022-12-16 15:33] LABS: African American GFR (CKD) 89 (>60 ml/min/1.73 sqM); Anion Gap 10 mmol/L; Blood Urea Nitrogen 23 mg/dL (9-20); Calcium 8.7 mg/dL (8.4-10.2); Carbon Dioxide 23 mmol/L (22-30); Chloride 98 mmol/L (98-107); Glucose 139 mg/dL (74-99); Non-African American GFR(CKD) 77 (>60 ml/min/1.73 sqM); Potassium 4.4 mmol/L (3.5-5.1); Sodium 131 mmol/L (137-145)
[2022-12-16] MEDS: HYDROmorphone 0.5 MG/0.5 ML SYRINGE IVP PRN ×2 (16:09→19:46)
--- NOTE | 2022-12-16 17:20 | P.CNPUL ---
History of Present Illness Consult date: 12/16/22 Requesting physician: Sarah Das Reason for consult: other (Acute pulmonary embolism) Chief complaint: Left sided chest pain History of present illness: This is a 57-year-old white male with history of multiple medical problems, patient is known to have history of peripheral vessel occlusive disease, and history of cellulitis he was admitted last to our institution on 10/17/2022, and he underwent the right second toe amputation on 10/19 patient had a right second toe osteomyelitis. He also had diabetic foot infection and a known history of type 2 diabetes as well as coronary artery disease and hypertension. Patient has been doing well except he was supposed to follow-up with Dr. Rodriguez after his amputation, today the patient was supposed to see Dr. Rodriguez for follow-up on his toe amputation, and when he presented to [facility] he was complaining of left-sided pleuritic chest pain for the last 2 days with some shortness of breath. CT angiogram was done and it showed significant pulmonary embolism involving the left lung mostly the left lower lobe and the patient had the right ventricular strain. He was seen by cardiology on consultation, patient was brought in to [facility], underwent EKOS thrombolysis, and he was transferred to the ICU, we were asked to see him on consultation. During my evaluation, the patient had no shortness of breath his chest pain is already improving slightly pleuritic in nature on the left side of the chest, no cough, no fever no chills no hemoptysis. No nausea no vomiting he did feel lightheaded prior to this procedure. Presently relatively asymptomatic. Review of Systems Constitutional: Negative HEENT: Negative Pulmonary: As noted in HPI mostly left sided pleuritic chest pain and minimal shortness of breath Cardiac: Negative GI: Negative genitourinary: Negative Musculoskeletal: Negative except for previous 2 toes amputations Skin: Negative Hematologic: Negative except for his acute pulmonary embolism as noted in HPI Neurologic: Negative Psychiatric: Negative Past Medical History Past Medical History: Diabetes Mellitus, GERD/Reflux, Hypertension Additional Past Medical History / Comment(s): occ. pain with swallowing at times, hiatal hernia, dry skin, hx kidney stones History of Any Multi-Drug Resistant Organisms: MRSA Date of last positivie culture/infection: 12/13/20 MDRO Source:: TOE Past Surgical History: Orthopedic Surgery Additional Past Surgical History / Comment(s): cystoscopy/stent in urethra, olga carpal tunnel, trigger finger left thumb, rt thumb surgery, shoulder surgery Past Anesthesia/Blood Transfusion Reactions: No Reported Reaction Additional Past Anesthesia/Blood Transfusion Reaction / Comment(s): dizziness Past Psychological History: No Psychological Hx Reported Smoking Status: Former smoker Past Alcohol Use History: None Reported Additional Past Alcohol Use History / Comment(s): smoked for 30 yrs Past Drug Use History: None Reported - Past Family History Mother Family Medical History: No Reported History Medications and Allergies Home Medications Medication Instructions Recorded Confirmed Type Lisinopril-Hctz 20-12.5 mg 1 tab PO DAILY 02/13/22 12/16/22 History [Zestoretic 20-12.5] Omeprazole [PriLOSEC] 20 mg PO AC-BID 10/17/22 12/16/22 History Pregabalin [Lyrica] 50 mg PO BID #6 cap 10/23/22 12/16/22 Rx Acetaminophen [Tylenol] 650 mg PO Q6HR PRN 12/16/22 12/16/22 History Empagliflozin [Jardiance] 25 mg PO DAILY 12/16/22 12/16/22 History Glimepiride [Amaryl] 2 mg PO DAILY 12/16/22 12/16/22 History HYDROcodone/APAP 5-325MG [[place] 1 tab PO Q4HR PRN 12/16/22 12/16/22 History 5-325] Lactobacillus Rhamnosus GG 1 cap PO DAILY 12/16/22 12/16/22 History [Culturelle] Melatonin 3 mg PO HS 12/16/22 12/16/22 History Sennosides [Senokot] 8.6 mg PO BID PRN 12/16/22 12/16/22 History Tirzepatide [Mounjaro] 5 mg SQ TH 12/16/22 12/16/22 History cefTRIAXone [Rocephin] 2 gm IV Q24H 12/16/22 12/16/22 History metroNIDAZOLE 500 mg PO TID 12/16/22 12/16/22 History Allergies Allergy/AdvReac Type Severity Reaction Status Date / Time metformin AdvReac Nausea & Verified 12/16/22 16:57 Vomiting & Diarrhea Rwlmzhl-MKI-FiD Reductase AdvReac liver Verified 12/16/22 16:57 Inhibitor problems [Qfqqfrc-Fxg-Hkg Reductase Inhibitor] Physical Exam Vitals: Vital Signs Temp Pulse Pulse Resp BP BP Pulse Ox 12/16/22 16:00 98.2 F 92 7 L 139/70 93 L 12/16/22 15:00 84 7 L 123/71 94 L 12/16/22 14:38 20 12/16/22 11:41 100. F H 109 H 16 129/74 96 Intake and Output 12/16/22 12/16/22 12/16/22 06:59 14:59 22:59 Intake Total 100 70.833 Output Total 300 Balance 100 -229.167 Intake: IV 100 Intake, IV Titration 70.833 Amount Alteplase 6 mg In Sodium 0.833 Chloride 0.9% 144 ml @ 1 MG/HR 25 mls/hr IV .Q6H ONE Rx#:[id number] Sodium Chloride 0.9% 1, 70 000 ml @ 70 mls/hr IV . [id number] Rx#:[id number] Output: Urine 300 Other: Voiding Method Indwelling Catheter Weight 94.755 kg Physical Exam are unrevealing 57-year-old white male in no distress, on 2 L nasal cannula Head: Atraumatic normocephalic HEENT:[Neck is supple.] [No neck masses.] [No thyromegaly.] [No JVD.] Chest: [Clear throughout, no crackles, no rhonchi, no wheezes.] Cardiac Exam: [Normal S1 and S2, no S3 gallop, no murmur.] Abdomen: [Soft, nontender, no megaly, no rebound, no guarding, normal bowel sounds.] Extremities: [No clubbing, no edema, no cyanosis.] Those are covered with sterile dressing patient has good posterior tibial pulses bilaterally. Neurological Exam: [No focal neurologic deficit.] Psychiatric: Normal mood affect and normal mental status examination skin: No rashes Results - Laboratory Findings CBC and BMP: 12/16/22 14:40 12/16/22 14:40 PT/INR, D-dimer PT 11.1 sec (9.0-12.0) 12/16/22 14:40 INR 1.1 (<1.2) 12/16/22 14:40 Abnormal lab findings: Abnormal Labs 12/16/22 12/16/22 12/16/22 11:44 14:39 14:40 WBC 19.0 H Neutrophils # 15.2 H Monocytes # 1.5 H Fibrinogen Sodium BUN Glucose POC Glucose (mg/dL) 147 H 138 H 12/16/22 12/16/22 14:40 14:40 WBC Neutrophils # Monocytes # Fibrinogen 758 H Sodium 131 L BUN 23 H Glucose 139 H POC Glucose (mg/dL) - Diagnostic Findings Additional studies: CT of the chest which was done at [facility] could not be reviewed however I was able to review the report from the radiologist Assessment and Plan Assessment: Impression: Acute pulmonary embolism Acute right ventricular strain, status post EKOS thrombolysis. Postoperative day #1 Type 2 diabetes with diabetic foot ulcers History of osteomyelitis requiring toe amputation/right second toe Dyslipidemia Diabetic neuropathy History of coronary artery disease Recommendation: Agree with the present treatment plan Continue EKOS thrombolysis Continue to monitor in the ICU Transition to oral eliquis in a.m. Possible discharge planning in the next 24 hours. We will continue to follow. Time with Patient: Greater than 30
--- NOTE | 2022-12-16 20:20 | CC ---
CARDIAC CATHETERIZATION REPORT PROCEDURES PERFORMED: 1. Right heart catheterization from left femoral venous approach. 2. EKOS catheter placement. 3. TPA infusion into the left pulmonary artery along with ultrasound. PERFORMED BY: Dr. Lakshmi Das. ANESTHESIA: Moderate conscious sedation time was 33 minutes. CLINICAL INFORMATION: Mr. Sven Chavez is a 57-year-old gentleman with peripheral vascular disease, who had amputation of toe performed. He has diabetes, hypertension, hyperlipidemia. While he was in the hospital following the toe amputation at [facility], he developed left-sided chest pain and shortness of breath. D-dimer was elevated and a CT angio revealed left-sided pulmonary embolism with strain at a ratio of 1.13. He was advised intravenous heparin and transferred to [facility] for EKOS procedure. PROCEDURE NOTE: Under local anesthesia and strict aseptic precautions, a 6-Bhutanese introducer was placed in the left femoral vein using a micropuncture needle technique. I used a 6- Bhut[place] balloon tipped catheter and performed right heart catheterization and the catheter was left to the left pulmonary artery. I used a Victory wire of 300 cm length to help facilitate entry into the left pulmonary artery. All pressures were recorded. Subsequently, the wire was left and the catheter was exchanged for an EKOS catheter, which was positioned and then through the EKOS catheter, the ultrasound catheter was also advanced and positioned. Good location was noted. The pulmonary embolism was all confined to the left side and therefore only left-sided infusion was advised. The catheters were sutured. Sheath was sutured. TPA infusion was begun and the patient will get 2 mg of tPA bolus and 6 mg of infusion over 6 hours. Details were discussed with the patient. No family was available. The patient tolerated the procedure well. The right-sided pressures were as follows: RA 3 mm, RV 47/3, pulmonary artery 47/22 with a mean of 30. The wedge pressure was not measured. MMODL / IJN: [id number] / [facility]
[2022-12-16] MEDS: ALPRAZolam 0.25 MG TAB PO PRN (20:59)
[2022-12-16] MEDS: PREGABALIN 50 MG CAP PO SCH (20:59)
[2022-12-16] MEDS: ACETAMINOPHEN TAB 325 MG TAB PO PRN (20:59)
[2022-12-16] MEDS: MELATONIN 3 MG TABLET PO SCH (21:00)
[2022-12-16 21:52] LABS: Basophils % (A) 0 %; Eosinophils # (A) 0.5 k/uL (0-0.7); Eosinophils % (A) 3 %; HGB 13.3 gm/dL (13.0-17.5); Lymphocytes # (A) 1.1 k/uL (1.0-4.8); Lymphocytes % (A) 7 %; MCH 30.9 pg (25.0-35.0); MCHC 34.9 g/dL (31.0-37.0); MCV 88.7 fL (80.0-100.0); Mean Platelet Volume 7.2; Monocytes # (A) 1.3 k/uL (0-1.0); Monocytes % (A) 8 %; Neutrophils # (A) 13.6 k/uL (1.3-7.7); Neutrophils % (A) 81 %; Platelet Count 283 k/uL (150-450); RBC 4.29 m/uL (4.30-5.90); RDW 13.5 % (11.5-15.5); WBC 16.7 k/uL (3.8-10.6)
[2022-12-17] MEDS: HYDROmorphone 0.5 MG/0.5 ML SYRINGE IVP PRN ×6 (00:25→21:29)
[2022-12-17 00:46] LABS: Basophils % (A) 0 %; Eosinophils # (A) 0.5 k/uL (0-0.7); Eosinophils % (A) 3 %; HCT 37.2 % (39.0-53.0); HGB 12.8 gm/dL (13.0-17.5); Lymphocytes # (A) 1.5 k/uL (1.0-4.8); Lymphocytes % (A) 9 %; MCH 30.5 pg (25.0-35.0); MCHC 34.4 g/dL (31.0-37.0); MCV 88.8 fL (80.0-100.0); Mean Platelet Volume 7.3; Monocytes # (A) 1.3 k/uL (0-1.0); Monocytes % (A) 8 %; Neutrophils # (A) 13.4 k/uL (1.3-7.7); Neutrophils % (A) 79 %; Platelet Count 283 k/uL (150-450); RBC 4.19 m/uL (4.30-5.90); RDW 13.4 % (11.5-15.5); WBC 16.8 k/uL (3.8-10.6)
[2022-12-17] MEDS: SODIUM CHLORIDE 0.9% 1,000 ML IV SCH ×3 (03:47→15:40)
[2022-12-17 06:07] LABS: Basophils % (A) 0 %; Eosinophils # (A) 0.5 k/uL (0-0.7); Eosinophils % (A) 3 %; HCT 37.9 % (39.0-53.0); HGB 13.1 gm/dL (13.0-17.5); Lymphocytes # (A) 1.3 k/uL (1.0-4.8); Lymphocytes % (A) 8 %; MCH 30.8 pg (25.0-35.0); MCHC 34.6 g/dL (31.0-37.0); MCV 88.9 fL (80.0-100.0); Mean Platelet Volume 6.9; Monocytes # (A) 1.1 k/uL (0-1.0); Monocytes % (A) 7 %; Neutrophils # (A) 13.4 k/uL (1.3-7.7); Neutrophils % (A) 81 %; Platelet Count 279 k/uL (150-450); RBC 4.27 m/uL (4.30-5.90); RDW 13.3 % (11.5-15.5); WBC 16.5 k/uL (3.8-10.6)
[2022-12-17] MEDS: PANTOPRAZOLE 40 MG TABLET PO SCH (06:37)
[2022-12-17] MEDS: ACETAMINOPHEN TAB 325 MG TAB PO PRN (06:37)
--- NOTE | 2022-12-17 07:34 | P.GSCN ---
History of Present Illness History of present illness: 57-year-old gentleman patient is known to me he had a wet gangrene of the right foot toes we did the big toe amputation in the past he came in to the ER few days ago to [facility] with history of swelling of the right foot with some pain and discomfort patient is an IV antibiotic under care of infectious disease patient underwent a seen and was admitted the past stump site of the right foot is almost healed there is a dry scab present we been using local wound care using Aquacel silver. Patient developed a PE lung and there and Dr. negrete transcatheter infusion patient was seen and discussed care unit Chest is clear good and both lungs first and second sound present Abdomen soft nontender Femorals are 1+ bilateral right foot stump site is almost healed there is a dry scab present we been using Aquacel silver swelling and redness is gone patient is an IV antibiotic under care of infectious disease we will follow with you thank you Past Medical History Past Medical History: Diabetes Mellitus, GERD/Reflux, Hypertension Additional Past Medical History / Comment(s): occ. pain with swallowing at times, hiatal hernia, dry skin, hx kidney stones History of Any Multi-Drug Resistant Organisms: MRSA Year Discovered:: 12/13/20 MDRO Source:: TOE Past Surgical History: Orthopedic Surgery Additional Past Surgical History / Comment(s): cystoscopy/stent in urethra, olga carpal tunnel, trigger finger left thumb, rt thumb surgery, shoulder surgery Past Anesthesia/Blood Transfusion Reactions: No Reported Reaction Additional Past Anesthesia/Blood Transfusion Reaction / Comm: dizziness Past Psychological History: No Psychological Hx Reported Smoking Status: Former smoker Past Alcohol Use History: None Reported Additional Past Alcohol Use History / Comment(s): smoked for 30 yrs Past Drug Use History: None Reported - Past Family History Mother Family Medical History: No Reported History Medications and Allergies Home Medications Medication Instructions Recorded Confirmed Type Lisinopril-Hctz 20-12.5 mg 1 tab PO DAILY 02/13/22 12/16/22 History [Zestoretic 20-12.5] Omeprazole [PriLOSEC] 20 mg PO AC-BID 10/17/22 12/16/22 History Pregabalin [Lyrica] 50 mg PO BID #6 cap 10/23/22 12/16/22 Rx Acetaminophen [Tylenol] 650 mg PO Q6HR PRN 12/16/22 12/16/22 History Empagliflozin [Jardiance] 25 mg PO DAILY 12/16/22 12/16/22 History Glimepiride [Amaryl] 2 mg PO DAILY 12/16/22 12/16/22 History HYDROcodone/APAP 5-325MG [[place] 1 tab PO Q4HR PRN 12/16/22 12/16/22 History 5-325] Lactobacillus Rhamnosus GG 1 cap PO DAILY 12/16/22 12/16/22 History [Culturelle] Melatonin 3 mg PO HS 12/16/22 12/16/22 History Sennosides [Senokot] 8.6 mg PO BID PRN 12/16/22 12/16/22 History Tirzepatide [Mounjaro] 5 mg SQ TH 12/16/22 12/16/22 History cefTRIAXone [Rocephin] 2 gm IV Q24H 12/16/22 12/16/22 History metroNIDAZOLE 500 mg PO TID 12/16/22 12/16/22 History Allergies Allergy/AdvReac Type Severity Reaction Status Date / Time metformin AdvReac Nausea & Verified 12/16/22 16:57 Vomiting & Diarrhea Viievdh-LDP-EfV Reductase AdvReac liver Verified 12/16/22 16:57 Inhibitor problems [Bkfsqrz-Ntj-Gey Reductase Inhibitor] Surgical - Exam Vital Signs Temp Pulse Resp BP Pulse Ox 100. F H 109 H 16 129/74 96 12/16/22 11:41 12/16/22 11:41 12/16/22 11:41 12/16/22 11:41 12/16/22 11:41 Results - Labs 12/17/22 05:50 12/16/22 14:40 Abnormal Lab Results - Last 24 Hours (Table) 12/16/22 12/16/22 12/16/22 Range/Units 11:44 14:39 14:40 WBC 19.0 H (3.8-10.6) k/uL RBC (4.30-5.90) m/uL Hgb (13.0-17.5) gm/dL Hct (39.0-53.0) % Neutrophils # 15.2 H (1.3-7.7) k/uL Monocytes # 1.5 H (0-1.0) k/uL Fibrinogen (200-500) mg/dL Sodium (137-145) mmol/L BUN (9-20) mg/dL Glucose (74-99) mg/dL POC Glucose (mg/dL) 147 H 138 H (70-110) mg/dL 12/16/22 12/16/22 12/16/22 Range/Units 14:40 14:40 21:30 WBC 16.7 H (3.8-10.6) k/uL RBC 4.29 L (4.30-5.90) m/uL Hgb (13.0-17.5) gm/dL Hct 38.0 L (39.0-53.0) % Neutrophils # 13.6 H (1.3-7.7) k/uL Monocytes # 1.3 H (0-1.0) k/uL Fibrinogen 758 H (200-500) mg/dL Sodium 131 L (137-145) mmol/L BUN 23 H (9-20) mg/dL Glucose 139 H (74-99) mg/dL POC Glucose (mg/dL) (70-110) mg/dL 12/16/22 12/17/22 12/17/22 Range/Units 22:00 00:30 02:45 WBC 16.8 H (3.8-10.6) k/uL RBC 4.19 L (4.30-5.90) m/uL Hgb 12.8 L (13.0-17.5) gm/dL Hct 37.2 L (39.0-53.0) % Neutrophils # 13.4 H (1.3-7.7) k/uL Monocytes # 1.3 H (0-1.0) k/uL Fibrinogen 720 H 746 H (200-500) mg/dL Sodium (137-145) mmol/L BUN (9-20) mg/dL Glucose (74-99) mg/dL POC Glucose (mg/dL) (70-110) mg/dL 12/17/22 Range/Units 05:50 WBC 16.5 H (3.8-10.6) k/uL RBC 4.27 L (4.30-5.90) m/uL Hgb (13.0-17.5) gm/dL Hct 37.9 L (39.0-53.0) % Neutrophils # 13.4 H (1.3-7.7) k/uL Monocytes # 1.1 H (0-1.0) k/uL Fibrinogen (200-500) mg/dL Sodium (137-145) mmol/L BUN (9-20) mg/dL Glucose (74-99) mg/dL POC Glucose (mg/dL) (70-110) mg/dL Diabetes panel 12/16/22 Range/Units 14:40 Sodium 131 L (137-145) mmol/L Potassium 4.4 (3.5-5.1) mmol/L Chloride 98 (98-107) mmol/L Carbon Dioxide 23 (22-30) mmol/L BUN 23 H (9-20) mg/dL Creatinine 1.08 (0.66-1.25) mg/dL Glucose 139 H (74-99) mg/dL Calcium 8.7 (8.4-10.2) mg/dL Calcium panel 12/16/22 Range/Units 14:40 Calcium 8.7 (8.4-10.2) mg/dL Pituitary panel 12/16/22 Range/Units 14:40 Sodium 131 L (137-145) mmol/L Potassium 4.4 (3.5-5.1) mmol/L Chloride 98 (98-107) mmol/L Carbon Dioxide 23 (22-30) mmol/L BUN 23 H (9-20) mg/dL Creatinine 1.08 (0.66-1.25) mg/dL Glucose 139 H (74-99) mg/dL Calcium 8.7 (8.4-10.2) mg/dL Adrenal panel 12/16/22 Range/Units 14:40 Sodium 131 L (137-145) mmol/L Potassium 4.4 (3.5-5.1) mmol/L Chloride 98 (98-107) mmol/L Carbon Dioxide 23 (22-30) mmol/L BUN 23 H (9-20) mg/dL Creatinine 1.08 (0.66-1.25) mg/dL Glucose 139 H (74-99) mg/dL Calcium 8.7 (8.4-10.2) mg/dL
[2022-12-17] MEDS: HYDROcodone/APAP 5-325MG 1 EACH TAB PO PRN (08:32)
[2022-12-17] MEDS: PREGABALIN 50 MG CAP PO SCH ×2 (08:32→21:20)
[2022-12-17] MEDS: LISINOPRIL-HCTZ 20-12.5 MG 1 EACH TAB PO SCH (08:33)
[2022-12-17] MEDS ORDERED: KETOROLAC 15 MG/ML 1 ML VIAL IVP STA (09:01)
[2022-12-17] MEDS ORDERED: DEXTROSE 50% SYRINGE 50 ML IVP PRN ×2 (11:12)
[2022-12-17] MEDS ORDERED: cefTRIAXone 2 GM VIAL IVPB SCH (11:15)
--- NOTE | 2022-12-17 11:56 | P.PN ---
Subjective Progress Note Date: 12/17/22 Principal diagnosis: Acute pulmonary embolism This is a 57-year-old white male with history of multiple medical problems, patient is known to have history of peripheral vessel occlusive disease, and history of cellulitis he was admitted last to our institution on 10/17/2022, and he underwent the right second toe amputation on 10/19 patient had a right second toe osteomyelitis. He also had diabetic foot infection and a known history of type 2 diabetes as well as coronary artery disease and hypertension. Patient has been doing well except he was supposed to follow-up with Dr. Rodriguez after his amputation, today the patient was supposed to see Dr. Rodriguez for follow-up on his toe amputation, and when he presented to [facility] he was complaining of left-sided pleuritic chest pain for the last 2 days with some shortness of breath. CT angiogram was done and it showed significant pulmonary embolism involving the left lung mostly the left lower lobe and the patient had the right ventricular strain. He was seen by cardiology on consultation, patient was brought in to [facility], underwent EKOS thrombolysis, and he was transferred to the ICU, we were asked to see him on consultation. During my evaluation, the patient had no shortness of breath his chest pain is already improving slightly pleuritic in nature on the left side of the chest, no cough, no fever no chills no hemoptysis. No nausea no vomiting he did feel lightheaded prior to this procedure. Presently relatively asymptomatic. Patient was reevaluated today on 12/17/2022, remains in the ICU, continues to have left-sided pleuritic chest pain, patient felt much better when he was given Toradol, and I'm recommending another dose of Toradol for his left sided pleurit ic chest pain patient is on room air, his O2 sats is 93%. He did spike a temp last night of 102. Follow-up chest x-ray is pending this morning. WBC count today is 16.5 hemoglobin is 13.1, his fibrinogen is 746 patient continues to have a sheath in place, in the left groin, and his alteplase infusion is finished. Cardiology will likely transition the patient to [facility]. Objective - Vital Signs Vital signs: Vital Signs Temp 102.0 F H 12/17/22 08:00 Pulse 115 H 12/17/22 08:00 Resp 17 12/17/22 08:00 BP 150/78 12/17/22 08:00 Pulse Ox 93 L 12/17/22 08:00 FiO2 Intake & Output 12/16/22 12/17/22 12/17/22 18:59 06:59 18:59 Intake Total 601.230 4308 427 Output Total 450 1260 275 Balance -34.167 0 152 Weight 94.755 kg 97.9 kg Intake: IV 100 Intake, IV Titration 844.196 9633 427 Amount Alteplase 6 mg In Sodium 0.833 Chloride 0.9% 144 ml @ 1 MG/HR 25 mls/hr IV .Q6H ONE Rx#:[id number] Sodium Chloride 0.9% 1, 210 840 70 000 ml @ 70 mls/hr IV . [id number] [facility] Rx#:[id number] Sodium Chloride 0.9% 1, 105 420 357 000 ml @ Per Protocol IV .Q0M [facility] Rx#:[id number] Oral 0 Output: Urine 450 1260 275 Other: Voiding Method Indwelling Catheter Indwelling Catheter Indwelling Catheter - Exam Physical Exam are unrevealing 57-year-old white male in no distress, on room air Head: Atraumatic normocephalic HEENT:[Neck is supple.] [No neck masses.] [No thyromegaly.] [No JVD.] Chest: [Clear throughout, no crackles, no rhonchi, no wheezes.] Cardiac Exam: [Normal S1 and S2, no S3 gallop, no murmur.] Abdomen: [Soft, nontender, no megaly, no rebound, no guarding, normal bowel sounds.] Extremities: [No clubbing, no edema, no cyanosis.] Those are covered with sterile dressing patient has good posterior tibial pulses bilaterally. Neurological Exam: [No focal neurologic deficit.] Psychiatric: Normal mood affect and normal mental status examination skin: No rashes - Labs CBC & Chem 7: 12/17/22 05:50 12/16/22 14:40 Labs: Abnormal Lab Results - Last 24 Hours (Table) 12/16/22 12/16/22 12/16/22 Range/Units 14:39 14:40 14:40 WBC 19.0 H (3.8-10.6) k/uL RBC (4.30-5.90) m/uL Hgb (13.0-17.5) gm/dL Hct (39.0-53.0) % Neutrophils # 15.2 H (1.3-7.7) k/uL Monocytes # 1.5 H (0-1.0) k/uL Fibrinogen 758 H (200-500) mg/dL Sodium (137-145) mmol/L BUN (9-20) mg/dL Glucose (74-99) mg/dL POC Glucose (mg/dL) 138 H (70-110) mg/dL 12/16/22 12/16/22 12/16/22 Range/Units 14:40 21:30 22:00 WBC 16.7 H (3.8-10.6) k/uL RBC 4.29 L (4.30-5.90) m/uL Hgb (13.0-17.5) gm/dL Hct 38.0 L (39.0-53.0) % Neutrophils # 13.6 H (1.3-7.7) k/uL Monocytes # 1.3 H (0-1.0) k/uL Fibrinogen 720 H (200-500) mg/dL Sodium 131 L (137-145) mmol/L BUN 23 H (9-20) mg/dL Glucose 139 H (74-99) mg/dL POC Glucose (mg/dL) (70-110) mg/dL 12/17/22 12/17/22 12/17/22 Range/Units 00:30 02:45 05:50 WBC 16.8 H 16.5 H (3.8-10.6) k/uL RBC 4.19 L 4.27 L (4.30-5.90) m/uL Hgb 12.8 L (13.0-17.5) gm/dL Hct 37.2 L 37.9 L (39.0-53.0) % Neutrophils # 13.4 H 13.4 H (1.3-7.7) k/uL Monocytes # 1.3 H 1.1 H (0-1.0) k/uL Fibrinogen 746 H (200-500) mg/dL Sodium (137-145) mmol/L BUN (9-20) mg/dL Glucose (74-99) mg/dL POC Glucose (mg/dL) (70-110) mg/dL Assessment and Plan Assessment: Impression: Acute pulmonary embolism Acute right ventricular strain, status post EKOS thrombolysis. Postoperative day #2 Type 2 diabetes with diabetic foot ulcers History of osteomyelitis requiring toe amputation/right second toe Dyslipidemia Diabetic neuropathy History of coronary artery disease Recommendation: Cardiology to decide on transitioning to oral eliquis Toradol form of left-sided pleuritic chest pain Repeat chest x-ray today and check for possible left-sided pleural effusion Antibiotics since the patient is spiking fevers and I believe the source of his infection is most likely his recent foot infection/osteomyelitis requiring amputation Consider infectious disease to evaluate if the patient continues to have fever, patient is now on Rocephin Transfer patient today to a regular medical floor We will continue to follow. Time with Patient: Less than 30
--- NOTE | 2022-12-17 12:45 | XR ---
EXAMINATION TYPE: XR chest 1V portable DATE OF EXAM: 12/17/2022 Comparison: 02/13/[address] 12/15/2022 Clinical History: 57-year-old male chest pain Findings: Some type of curvilinear metallic lead projects along the left heart margin and should be correlated clinically to exclude some type of internal versus external foreign body. Increasing patchy opacity l eft lower lung with trace left effusion. Right PICC tip seen to the lower SVC. Impression: 1. Some type of curvilinear metallic foreign body projecting along left side of the heart. Clinically correlate. Possible external artifact. 2. Increasing patchy infiltrate at the left lower lung and trace left effusion.
[2022-12-17 12:51] LABS: Basophils % (A) 0 %; Eosinophils # (A) 0.5 k/uL (0-0.7); Eosinophils % (A) 3 %; HCT 39.5 % (39.0-53.0); HGB 13.3 gm/dL (13.0-17.5); Lymphocytes # (A) 1.8 k/uL (1.0-4.8); Lymphocytes % (A) 12 %; MCH 30.2 pg (25.0-35.0); MCHC 33.8 g/dL (31.0-37.0); MCV 89.3 fL (80.0-100.0); Mean Platelet Volume 7.2; Monocytes # (A) 1.4 k/uL (0-1.0); Monocytes % (A) 9 %; Neutrophils # (A) 11.8 k/uL (1.3-7.7); Neutrophils % (A) 75 %; Platelet Count 284 k/uL (150-450); RBC 4.42 m/uL (4.30-5.90); RDW 13.4 % (11.5-15.5); WBC 15.7 k/uL (3.8-10.6)
--- NOTE | 2022-12-17 13:01 | P.PCN ---
Date of Procedure: 12/17/22 Description of Procedure: EKOS catheter removal procedure note Left femoral vein EKOS catheter and Venous sheath was removed at bedside. No complications encountered. Pressure held for 15 minutes with no residual bleeding Head of bed elevation in 1hr Start to Ambulate in 1.5 hr Start eliquis 10mg BID
[2022-12-17 13:02] LABS: African American GFR (CKD) >90 (>60 ml/min/1.73 sqM); Anion Gap 10 mmol/L; Blood Urea Nitrogen 20 mg/dL (9-20); Calcium 8.3 mg/dL (8.4-10.2); Carbon Dioxide 20 mmol/L (22-30); Chloride 102 mmol/L (98-107); Glucose 123 mg/dL (74-99); Non-African American GFR(CKD) >90 (>60 ml/min/1.73 sqM); Potassium 3.8 mmol/L (3.5-5.1); Sodium 132 mmol/L (137-145)
[2022-12-17] MEDS ORDERED: APIXABAN 5 MG TAB PO SCH (13:15)
--- NOTE | 2022-12-17 14:20 | P.HPIM ---
History of Present Illness H&P Date: 12/17/22 History of present illness; patient is a 57-year-old gentleman with past medical history significant for peripheral vessel occlusive disease,type 2 diabetes as well as coronary artery disease, hypertension who was transferred from [facility] after being diagnosed with acute PE for EKOS. Patient recently was admitted to [facility] on 10/17/2022, and he underwent the right second toe amputation on 10/19 for right second toe osteomyelitis. Patient was being seen by ID for IV antibiotics and by vascular surgery for wound care. Patient went to [facility] and therefore he was complaining of left-sided chest pain. Patient was immediately sent for computed tomography scan of chest. CT angiogram was done and it showed significant pulmonary embolism involving the left lung mostly the left lower lobe and the patient had the right ventricular strain Patient was transferred to [facility] for EKOS admitted to ICU REVIEW OF SYSTEMS: CONSTITUTIONAL: No fever, no malaise, no fatigue. HEENT: No recent visual problems or hearing problems. Denied any sore throat. CARDIOVASCULAR: As mentioned in HPI PULMONARY: No shortness of breath, no cough, no hemoptysis. GASTROINTESTINAL: No diarrhea, no nausea, no vomiting, no abdominal pain. NEUROLOGICAL: No headaches, no weakness, no numbness. HEMATOLOGICAL: Denies any bleeding or petechiae. GENITOURINARY: Denies any burning micturition, frequency, or urgency. MUSCULOSKELETAL/RHEUMATOLOGICAL: Denies any joint pain, swelling, or any muscle pain. ENDOCRINE: Denies any polyuria or polydipsia. The rest of the 14-point review of systems is negative. PHYSICAL EXAMINATION: GENERAL: The patient is alert and oriented x3, not in any acute distress. Well developed, well nourished. HEENT: Pupils are round and equally reacting to light. EOMI. No scleral icterus. No conjunctival pallor. Normocephalic, atraumatic. No pharyngeal erythema. No thyromegaly. CARDIOVASCULAR: S1 and S2 present. No murmurs, rubs, or gallops. PULMONARY: Chest is clear to auscultation, no wheezing or crackles. ABDOMEN: Soft, nontender, nondistended, normoactive bowel sounds. No palpable organomegaly. MUSCULOSKELETAL: No joint swelling or deformity. EXTREMITIES: Right foot second toe amputation seen NEUROLOGICAL: Gross neurological examination did not reveal any focal deficits. SKIN: No rashes. Assessment and plan Acute PE Type 2 diabetes with diabetic foot ulcers History of osteomyelitis requiring toe amputation/right second toe Dyslipidemia Diabetic neuropathy History of coronary artery disease Monitor vital signs Monitor CBC Monitor CMP Continue telemetry monitoring Continue pharmacy dose heparin Continue postop EKOS care Continue IV Rocephin and Flagyl ID consulted Cardiology following Critical care following Labs and medication were reviewed.. Continue same treatment. Continue with symptomatic treatment. Resume home medication. Monitor labs and vitals. DVT and GI prophylaxis. Further recommendations as per clinical course of the patient Dictation was produced using [employer] dictation software. please excuse any grammatical, word or spelling errors. Past Medical History Past Medical History: Diabetes Mellitus, GERD/Reflux, Hypertension Additional Past Medical History / Comment(s): occ. pain with swallowing at times, hiatal hernia, dry skin, hx kidney stones History of Any Multi-Drug Resistant Organisms: MRSA Date of last positivie culture/infection: 12/13/20 MDRO Source:: TOE Past Surgical History: Orthopedic Surgery Additional Past Surgical History / Comment(s): cystoscopy/stent in urethra, olga carpal tunnel, trigger finger left thumb, rt thumb surgery, shoulder surgery Past Anesthesia/Blood Transfusion Reactions: No Reported Reaction Additional Past Anesthesia/Blood Transfusion Reaction / Comment(s): dizziness Past Psychological History: No Psychological Hx Reported Smoking Status: Former smoker Past Alcohol Use History: None Reported Additional Past Alcohol Use History / Comment(s): smoked for 30 yrs Past Drug Use History: None Reported - Past Family History Mother Family Medical History: No Reported History Medications and Allergies Home Medications Medication Instructions Recorded Confirmed Type Lisinopril-Hctz 20-12.5 mg 1 tab PO DAILY 02/13/22 12/16/22 History [Zestoretic 20-12.5] Omeprazole [PriLOSEC] 20 mg PO AC-BID 10/17/22 12/16/22 History Pregabalin [Lyrica] 50 mg PO BID #6 cap 10/23/22 12/16/22 Rx Acetaminophen [Tylenol] 650 mg PO Q6HR PRN 12/16/22 12/16/22 History Empagliflozin [Jardiance] 25 mg PO DAILY 12/16/22 12/16/22 History Glimepiride [Amaryl] 2 mg PO DAILY 12/16/22 12/16/22 History HYDROcodone/APAP 5-325MG [[place] 1 tab PO Q4HR PRN 12/16/22 12/16/22 History 5-325] Lactobacillus Rhamnosus GG 1 cap PO DAILY 12/16/22 12/16/22 History [Culturelle] Melatonin 3 mg PO HS 12/16/22 12/16/22 History Sennosides [Senokot] 8.6 mg PO BID PRN 12/16/22 12/16/22 History Tirzepatide [Mounjaro] 5 mg SQ TH 12/16/22 12/16/22 History cefTRIAXone [Rocephin] 2 gm IV Q24H 12/16/22 12/16/22 History metroNIDAZOLE 500 mg PO TID 12/16/22 12/16/22 History Allergies Allergy/AdvReac Type Severity Reaction Status Date / Time metformin AdvReac Nausea & Verified 12/16/22 16:57 Vomiting & Diarrhea Egtuwdj-GTF-XzW Reductase AdvReac liver Verified 12/16/22 16:57 Inhibitor problems [Vbewmau-Oko-Aiv Reductase Inhibitor] Physical Exam Vitals: Vital Signs Temp Pulse Pulse Resp BP BP Pulse Ox 12/17/22 08:00 102.0 F H 115 H 17 150/78 93 L 12/17/22 07:00 106 H 20 162/86 94 L 12/17/22 06:00 104 H 20 155/86 94 L 12/17/22 05:00 100 20 132/65 92 L 12/17/22 04:00 100.3 F H 103 H 19 135/73 93 L 12/17/22 03:00 100 17 142/76 93 L 12/17/22 02:00 95 20 126/69 92 L 12/17/22 01:00 92 22 114/66 91 L 12/17/22 00:00 98.7 F 90 21 129/69 92 L 12/16/22 23:00 92 21 129/71 96 12/16/22 22:21 97 20 116/65 95 12/16/22 22:00 99 18 122/68 96 12/16/22 21:00 109 H 18 147/92 95 12/16/22 20:00 101.4 F H 103 H 22 137/74 86 L 12/16/22 19:00 96 21 123/71 90 L 12/16/22 18:00 96 23 114/70 89 L 12/16/22 17:00 93 20 107/68 90 L 12/16/22 16:00 98.2 F 92 7 L 139/70 93 L 12/16/22 15:00 84 7 L 123/71 94 L 12/16/22 14:38 20 12/16/22 11:41 100. F H 109 H 16 129/74 96 Intake and Output 12/16/22 12/17/22 12/17/22 22:59 06:59 14:59 Intake Total 735.833 840 427 Output Total 750 960 275 Balance -14.167 -120 152 Intake: Intake, IV Titration 735.833 840 427 Amount Alteplase 6 mg In Sodium 0.833 Chloride 0.9% 144 ml @ 1 MG/HR 25 mls/hr IV .Q6H [facility] Rx#:[id number] Sodium Chloride 0.9% 1, 490 560 70 000 ml @ 70 mls/hr IV . [id number] [facility] Rx#:[id number] Sodium Chloride 0.9% 1, 245 280 357 000 ml @ Per Protocol IV .Q0M [facility] Rx#:[id number] Oral 0 Output: Urine 750 960 275 Other: Voiding Method Indwelling Catheter Indwelling Catheter Indwelling Catheter Weight 97.9 kg Results CBC & Chem 7: 12/17/22 12:29 12/17/22 12:29 Labs: Abnormal Lab Results - Last 24 Hours (Table) 12/16/22 12/16/22 12/16/22 Range/Units 11:44 14:39 14:40 WBC 19.0 H (3.8-10.6) k/uL RBC (4.30-5.90) m/uL Hgb (13.0-17.5) gm/dL Hct (39.0-53.0) % Neutrophils # 15.2 H (1.3-7.7) k/uL Monocytes # 1.5 H (0-1.0) k/uL Fibrinogen (200-500) mg/dL Sodium (137-145) mmol/L BUN (9-20) mg/dL Glucose (74-99) mg/dL POC Glucose (mg/dL) 147 H 138 H (70-110) mg/dL 12/16/22 12/16/22 12/16/22 Range/Units 14:40 14:40 21:30 WBC 16.7 H (3.8-10.6) k/uL RBC 4.29 L (4.30-5.90) m/uL Hgb (13.0-17.5) gm/dL Hct 38.0 L (39.0-53.0) % Neutrophils # 13.6 H (1.3-7.7) k/uL Monocytes # 1.3 H (0-1.0) k/uL Fibrinogen 758 H (200-500) mg/dL Sodium 131 L (137-145) mmol/L BUN 23 H (9-20) mg/dL Glucose 139 H (74-99) mg/dL POC Glucose (mg/dL) (70-110) mg/dL 12/16/22 12/17/22 12/17/22 Range/Units 22:00 00:30 02:45 WBC 16.8 H (3.8-10.6) k/uL RBC 4.19 L (4.30-5.90) m/uL Hgb 12.8 L (13.0-17.5) gm/dL Hct 37.2 L (39.0-53.0) % Neutrophils # 13.4 H (1.3-7.7) k/uL Monocytes # 1.3 H (0-1.0) k/uL Fibrinogen 720 H 746 H (200-500) mg/dL Sodium (137-145) mmol/L BUN (9-20) mg/dL Glucose (74-99) mg/dL POC Glucose (mg/dL) (70-110) mg/dL 12/17/22 Range/Units 05:50 WBC 16.5 H (3.8-10.6) k/uL RBC 4.27 L (4.30-5.90) m/uL Hgb (13.0-17.5) gm/dL Hct 37.9 L (39.0-53.0) % Neutrophils # 13.4 H (1.3-7.7) k/uL Monocytes # 1.1 H (0-1.0) k/uL Fibrinogen (200-500) mg/dL Sodium (137-145) mmol/L BUN (9-20) mg/dL Glucose (74-99) mg/dL POC Glucose (mg/dL) (70-110) mg/dL Thrombosis Risk Factor Assmnt - Choose All That Apply Any of the Below Risk Factors Present?: Yes
[2022-12-17] MEDS: HEPARIN SOD,PORK IN 0.45% NACL 25,000 UNIT in 0.45% NACL 1 250ML.BAG IV SCH (15:32)
[2022-12-17] MEDS: INSULIN ASPART (NovoLOG) 100 UNIT/ML VIAL SQ SCH ×3 (15:32→21:19)
[2022-12-17] MEDS: Apixaban Initiation Dose--VTE 5 MG TAB PO SCH ×2 (15:39→21:20)
[2022-12-17] MEDS: metroNIDAZOLE 500 MG TAB PO SCH ×2 (15:40→21:20)
[2022-12-17 17:03] LABS: Glucose,Whole Blood 157 mg/dL (70-110)
[2022-12-17 20:24] LABS: Glucose,Whole Blood 184 mg/dL (70-110)
[2022-12-17] MEDS: MELATONIN 3 MG TABLET PO SCH (21:20)
[2022-12-17] MEDS ORDERED: VANCOMYCIN IV PER PHARMACY 1 EACH MISC MISCELLANE PRN (22:41)
[2022-12-18] MEDS ORDERED: VANCOMYCIN 2,000 MG in SODIUM CHLORIDE 0.9% 500 ML 500 ML IVPB ONE (01:00)
[2022-12-18] MEDS: CEFEPIME 2 GM in SODIUM CHLORIDE 0.9% 100 ML IVPB SCH ×4 (01:23→23:48)
[2022-12-18] MEDS: HYDROmorphone 0.5 MG/0.5 ML SYRINGE IVP PRN ×6 (01:34→20:17)
[2022-12-18 06:12] LABS: Basophils % (A) 0 %; Eosinophils # (A) 0.7 k/uL (0-0.7); Eosinophils % (A) 6 %; HGB 12.1 gm/dL (13.0-17.5); Lymphocytes # (A) 1.4 k/uL (1.0-4.8); Lymphocytes % (A) 11 %; MCH 30.1 pg (25.0-35.0); MCHC 33.7 g/dL (31.0-37.0); MCV 89.3 fL (80.0-100.0); Mean Platelet Volume 7.5; Monocytes % (A) 8 %; Neutrophils # (A) 9.3 k/uL (1.3-7.7); Neutrophils % (A) 74 %; Platelet Count 288 k/uL (150-450); RBC 4.03 m/uL (4.30-5.90); RDW 13.4 % (11.5-15.5); WBC 12.5 k/uL (3.8-10.6)
[2022-12-18 06:40] LABS: Glucose,Whole Blood 142 mg/dL (70-110)
[2022-12-18 06:42] LABS: Glucose 134 mg/dL (74-99)
[2022-12-18 06:44] LABS: ALT 12 U/L (4-49); AST 15 U/L (17-59); African American GFR (CKD) >90 (>60 ml/min/1.73 sqM); Albumin 2.6 g/dL (3.5-5.0); Alkaline Phosphatase 81 U/L (38-126); Anion Gap 9 mmol/L; Blood Urea Nitrogen 21 mg/dL (9-20); Calcium 8.1 mg/dL (8.4-10.2); Carbon Dioxide 20 mmol/L (22-30); Chloride 103 mmol/L (98-107); Non-African American GFR(CKD) >90 (>60 ml/min/1.73 sqM); Potassium 4.3 mmol/L (3.5-5.1); Sodium 132 mmol/L (137-145); Total Bilirubin 0.3 mg/dL (0.2-1.3)
[2022-12-18 07:37] LABS: C Reactive Protein 30.8 mg/dL (<1.0)
[2022-12-18] MEDS: INSULIN ASPART (NovoLOG) 100 UNIT/ML VIAL SQ SCH ×4 (07:37→20:59)
--- NOTE | 2022-12-18 08:35 | P.CONS ---
History of Present Illness - Reason for Consult Consult date: 12/17/22 - History of Present Illness Patient is a 57-year-old male with a past medical history significant for type 2 diabetes mellitus hypertension peripheral arterial disease history of right big toe amputation secondary to infection and recently did have a right second toe amputation done at [facility] on 10/17/2022, patient subsequently did have reopening of the wound to the right second toe amputation site with some purulent drainage and the patient was advised by his surgeon to go to [facility], where the patient was admitted on 11/26/2022 patient did have local wound culture done which grew MRSA and gram-negative patient did get a PICC line and was advised IV antibiotic therapy with the patient was receiving in the outpatient setting patient developing left-sided chest pain for the patient went to the [facility] patient was describing left sided chest pain to be sharp almost 10 out of 10 in severity with difficulty breathing no fever no chills the patient did have CT angiogram of the chest done which shows massive left-sided PE with right-sided heart str ain patient was subsequently transferred to [facility] for EKOS therapy which was done hide the patient was admitted to the ICU infectious disease was consulted for management of his antibiotic therapy currently on Rocephin patient right second toe amputation site wound seem to be healing covered with a dry scab patient denies any worsening pain to the right second toe amputation site or any further purulent drainage no fever no chills on presentation to the hospital patient did have a low-grade fever of 100 F subsequent spiked a fever of 101.4 F patient was tachycardic not hypoxic or need for supplemental oxygen patient did have white count of 16.7 creatinine 1.08, blood culture has been obtained patient is on Rocephin infectious was consulted for further management of his antibiotic therapy this morning Past Medical History Past Medical History: Diabetes Mellitus, GERD/Reflux, Hypertension Additional Past Medical History / Comment(s): occ. pain with swallowing at times, hiatal hernia, dry skin, hx kidney stones History of Any Multi-Drug Resistant Organisms: MRSA Year Discovered:: 12/13/20 MDRO Source:: TOE Past Surgical History: Orthopedic Surgery Additional Past Surgical History / Comment(s): cystoscopy/stent in urethra, olga carpal tunnel, trigger finger left thumb, rt thumb surgery, shoulder surgery Past Anesthesia/Blood Transfusion Reactions: No Reported Reaction Additional Past Anesthesia/Blood Transfusion Reaction / Comm: dizziness Past Psychological History: No Psychological Hx Reported Smoking Status: Former smoker Past Alcohol Use History: None Reported Additional Past Alcohol Use History / Comment(s): smoked for 30 yrs Past Drug Use History: None Reported - Past Family History Mother Family Medical History: No Reported History Medications and Allergies Home Medications Medication Instructions Recorded Confirmed Type Lisinopril-Hctz 20-12.5 mg 1 tab PO DAILY 02/13/22 12/16/22 History [Zestoretic 20-12.5] Omeprazole [PriLOSEC] 20 mg PO AC-BID 10/17/22 12/16/22 History Pregabalin [Lyrica] 50 mg PO BID #6 cap 10/23/22 12/16/22 Rx Acetaminophen [Tylenol] 650 mg PO Q6HR PRN 12/16/22 12/16/22 History Empagliflozin [Jardiance] 25 mg PO DAILY 12/16/22 12/16/22 History Glimepiride [Amaryl] 2 mg PO DAILY 12/16/22 12/16/22 History HYDROcodone/APAP 5-325MG [[place] 1 tab PO Q4HR PRN 12/16/22 12/16/22 History 5-325] Lactobacillus Rhamnosus GG 1 cap PO DAILY 12/16/22 12/16/22 History [Culturelle] Melatonin 3 mg PO HS 12/16/22 12/16/22 History Sennosides [Senokot] 8.6 mg PO BID PRN 12/16/22 12/16/22 History Tirzepatide [Mounjaro] 5 mg SQ TH 12/16/22 12/16/22 History cefTRIAXone [Rocephin] 2 gm IV Q24H 12/16/22 12/16/22 History metroNIDAZOLE 500 mg PO TID 12/16/22 12/16/22 History Allergies Allergy/AdvReac Type Severity Reaction Status Date / Time metformin AdvReac Nausea & Verified 12/16/22 16:57 Vomiting & Diarrhea Uwfyeqi-ZHH-AoL Reductase AdvReac liver Verified 12/16/22 16:57 Inhibitor problems [Twlekpm-Ktv-Yce Reductase Inhibitor] Physical Exam Vitals: Vital Signs Temp Pulse Pulse Resp BP BP Pulse Ox 12/17/22 08:00 102.0 F H 115 H 17 150/78 93 L 12/17/22 07:00 106 H 20 162/86 94 L 12/17/22 06:00 104 H 20 155/86 94 L 12/17/22 05:00 100 20 132/65 92 L 12/17/22 04:00 100.3 F H 103 H 19 135/73 93 L 12/17/22 03:00 100 17 142/76 93 L 12/17/22 02:00 95 20 126/69 92 L 12/17/22 01:00 92 22 114/66 91 L 12/17/22 00:00 98.7 F 90 21 129/69 92 L 12/16/22 23:00 92 21 129/71 96 12/16/22 22:21 97 20 116/65 95 12/16/22 22:00 99 18 122/68 96 12/16/22 21:00 109 H 18 147/92 95 12/16/22 20:00 101.4 F H 103 H 22 137/74 86 L 12/16/22 19:00 96 21 123/71 90 L 12/16/22 18:00 96 23 114/70 89 L 12/16/22 17:00 93 20 107/68 90 L 12/16/22 16:00 98.2 F 92 7 L 139/70 93 L 12/16/22 15:00 84 7 L 123/71 94 L 12/16/22 14:38 20 12/16/22 11:41 100. F H 109 H 16 129/74 96 Intake and Output 12/16/22 12/17/22 12/17/22 22:59 06:59 14:59 Intake Total 735.833 840 427 Output Total 750 960 275 Balance -14.167 -120 152 Intake: Intake, IV Titration 735.833 840 427 Amount Alteplase 6 mg In Sodium 0.833 Chloride 0.9% 144 ml @ 1 MG/HR 25 mls/hr IV .Q6H [facility] Rx#:[id number] Sodium Chloride 0.9% 1, 490 560 70 000 ml @ 70 mls/hr IV . [id number] [facility] Rx#:[id number] Sodium Chloride 0.9% 1, 245 280 357 000 ml @ Per Protocol IV .Q0M [facility] Rx#:[id number] Oral 0 Output: Urine 750 960 275 Other: Voiding Method Indwelling Catheter Indwelling Catheter Indwelling Catheter Weight 97.9 kg Results CBC & Chem 7: 12/18/22 05:31 12/18/22 05:26 Labs: Abnormal Lab Results - Last 24 Hours (Table) 12/16/22 12/16/22 12/16/22 Range/Units 11:44 14:39 14:40 WBC 19.0 H (3.8-10.6) k/uL RBC (4.30-5.90) m/uL Hgb (13.0-17.5) gm/dL Hct (39.0-53.0) % Neutrophils # 15.2 H (1.3-7.7) k/uL Monocytes # 1.5 H (0-1.0) k/uL Fibrinogen (200-500) mg/dL Sodium (137-145) mmol/L BUN (9-20) mg/dL Glucose (74-99) mg/dL POC Glucose (mg/dL) 147 H 138 H (70-110) mg/dL 12/16/22 12/16/22 12/16/22 Range/Units 14:40 14:40 21:30 WBC 16.7 H (3.8-10.6) k/uL RBC 4.29 L (4.30-5.90) m/uL Hgb (13.0-17.5) gm/dL Hct 38.0 L (39.0-53.0) % Neutrophils # 13.6 H (1.3-7.7) k/uL Monocytes # 1.3 H (0-1.0) k/uL Fibrinogen 758 H (200-500) mg/dL Sodium 131 L (137-145) mmol/L BUN 23 H (9-20) mg/dL Glucose 139 H (74-99) mg/dL POC Glucose (mg/dL) (70-110) mg/dL 12/16/22 12/17/22 12/17/22 Range/Units 22:00 00:30 02:45 WBC 16.8 H (3.8-10.6) k/uL RBC 4.19 L (4.30-5.90) m/uL Hgb 12.8 L (13.0-17.5) gm/dL Hct 37.2 L (39.0-53.0) % Neutrophils # 13.4 H (1.3-7.7) k/uL Monocytes # 1.3 H (0-1.0) k/uL Fibrinogen 720 H 746 H (200-500) mg/dL Sodium (137-145) mmol/L BUN (9-20) mg/dL Glucose (74-99) mg/dL POC Glucose (mg/dL) (70-110) mg/dL 12/17/22 Range/Units 05:50 WBC 16.5 H (3.8-10.6) k/uL RBC 4.27 L (4.30-5.90) m/uL Hgb (13.0-17.5) gm/dL Hct 37.9 L (39.0-53.0) % Neutrophils # 13.4 H (1.3-7.7) k/uL Monocytes # 1.1 H (0-1.0) k/uL Fibrinogen (200-500) mg/dL Sodium (137-145) mmol/L BUN (9-20) mg/dL Glucose (74-99) mg/dL POC Glucose (mg/dL) (70-110) mg/dL Assessment and Plan Plan: 1patient with sepsis in this patient with a fever tachycardia elevated white count source likely right second toe amputation site wound infection with osteomyelitis that was diagnosed at [facility] on 11/26/2022, wound culture at the time did grew MRSA gram-negative to be the likely pathogen as the patient currently was seem to be drying out without any drainage 2-discontinue her Rocephin 3-we will start the patient on vancomycin pharmacy to dose cefepime and Flagyl 4-we will check Doppler ultrasound of the left upper extremity measuring evidence of any DVT at the right upper arm PICC site We will follow on clinical condition and cultures to further adjust medication if needed Thank you for this consultation we will follow the patient along with you Dictation was produced using [employer] software. please excuse any grammatical, word or spelling errors. Time with Patient: Greater than 30
[2022-12-18] MEDS: PANTOPRAZOLE 40 MG TABLET PO SCH (08:36)
[2022-12-18] MEDS: PREGABALIN 50 MG CAP PO SCH ×2 (08:36→20:17)
[2022-12-18] MEDS: metroNIDAZOLE 500 MG TAB PO SCH ×3 (08:36→20:17)
[2022-12-18] MEDS: LISINOPRIL-HCTZ 20-12.5 MG 1 EACH TAB PO SCH (09:41)
[2022-12-18] MEDS: Apixaban Initiation Dose--VTE 5 MG TAB PO SCH ×2 (09:41→20:58)
[2022-12-18 09:42] LABS: Erythrocyte Sedimentation Rate 66 mm/Hr (0-20)
--- NOTE | 2022-12-18 10:19 | US ---
EXAMINATION TYPE: US venous doppler duplex UE RT DATE OF EXAM: 12/17/2022 COMPARISON: NONE CLINICAL INDICATION: Male, 57 years old with history of swelling/DVT; new PE's, patient has PICC line in right arm, no h/o DVT in limbs SIDE PERFORMED: Right Right Arm: Negative for DVT internal echoes that are not compressible at basilic vein within forearm PICC line catheter noted within the subclavian vein. IMPRESSION: 1. No evidence for DVT within the right upper cavity. 2. However, findings indicate SVT involving the basilic vein within the forearm.
[2022-12-18 11:53] LABS: Glucose,Whole Blood 152 mg/dL (70-110)
--- NOTE | 2022-12-18 12:55 | P.PN ---
Subjective Progress Note Date: 12/18/22 * 57-year-old gentleman with past medical history significant for peripheral vessel occlusive disease,type 2 diabetes as well as coronary artery disease, hypertension who was transferred from [facility] after being diagnosed with acute PE for EKOS. Patient recently was admitted to [facility] on 10/17/2022, and he underwent the right second toe amputation on 10/19 for right second toe osteomyelitis. Patient was being seen by ID for IV antibiotics and by vascular surgery for wound care. Patient went to [facility] and therefore he was complaining of left-sided chest pain. Patient was immediately sent for computed tomography scan of chest. * CT angiogram was done and it showed significant pulmonary embolism involving the left lung mostly the left lower lobe and the patient had the right ventricular strain * Patient was transferred to [facility] for EKOS admitted to ICU * 12/18/22: Patient seen and evaluated bedside, patient transferred out of ICU. Transition to Eliis starter pack. 4 low at 70 wound infection patient started on cefepime be continued along with Flagyl and vancomycin and infectious disease following. CBC reviewed WBC trending down. Renal profile within normal limits hemoglobin 12.1 ,CRP 30 Objective - Vital Signs Vital signs: Vital Signs Temp 98.9 F 12/18/22 11:15 Pulse 86 12/18/22 11:15 Resp 20 12/18/22 11:15 BP 110/68 12/18/22 11:15 Pulse Ox 93 L 12/18/22 11:15 FiO2 Intake & Output 12/17/22 12/18/22 12/18/22 18:59 06:59 18:59 Intake Total 427 600 Output Total 0478 1226 875 Balance -2048 -620 -875 Weight 94.3 kg Intake: IV 600 Cefepime 2 gm In Sodium 100 Chloride 0.9% 100 ml @ 25 mls/hr IVPB Q8HR [facility] Rx# :[id number] Vancomycin 2,000 mg In 500 Sodium Chloride 0.9% 500 ml 500 ml @ 167 mls/hr IVPB ONCE ONE Rx#: [id number] Intake, IV Titration 427 Amount Sodium Chloride 0.9% 1, 70 000 ml @ 70 mls/hr IV . [id number] [facility] Rx#:[id number] Sodium Chloride 0.9% 1, 357 000 ml @ Per Protocol IV .Q0M [facility] Rx#:[id number] Output: Urine 1275 1220 875 Other: Voiding Method Indwelling Catheter Indwelling Catheter Urinal - Exam PHYSICAL EXAMINATION: GENERAL: The patient is alert and oriented x3, not in any acute distress. HEENT: Pupils are round and equally reacting to light. EOMI. CARDIOVASCULAR: S1 and S2 present. No murmurs, rubs, or gallops. PULMONARY: Chest is clear to auscultation, no wheezing or crackles. ABDOMEN: Soft, nontender, nondistended, normoactive bowel sounds. EXTREMITIES: Right foot second toe amputation seen NEUROLOGICAL: Gross neurological examination did not reveal any focal deficits. - Labs CBC & Chem 7: 12/18/22 05:31 12/18/22 05:26 Labs: Abnormal Lab Results - Last 24 Hours (Table) 12/17/22 12/17/22 12/17/22 Range/Units 12:29 12:29 17:02 WBC 15.7 H (3.8-10.6) k/uL RBC (4.30-5.90) m/uL Hgb (13.0-17.5) gm/dL Hct (39.0-53.0) % Neutrophils # 11.8 H (1.3-7.7) k/uL Monocytes # 1.4 H (0-1.0) k/uL ESR (0-20) mm/Hr Fibrinogen (200-500) mg/dL Sodium 132 L (137-145) mmol/L Carbon Dioxide 20 L (22-30) mmol/L BUN (9-20) mg/dL Glucose 123 H (74-99) mg/dL POC Glucose (mg/dL) 157 H (70-110) mg/dL Calcium 8.3 L (8.4-10.2) mg/dL AST (17-59) U/L C-Reactive Protein (<1.0) mg/dL Total Protein (6.3-8.2) g/dL Albumin (3.5-5.0) g/dL 12/17/22 12/17/22 12/18/22 Range/Units 20:23 22:16 05:26 WBC (3.8-10.6) k/uL RBC (4.30-5.90) m/uL Hgb (13.0-17.5) gm/dL Hct (39.0-53.0) % Neutrophils # (1.3-7.7) k/uL Monocytes # (0-1.0) k/uL ESR (0-20) mm/Hr Fibrinogen 821 H (200-500) mg/dL Sodium 132 L (137-145) mmol/L Carbon Dioxide 20 L (22-30) mmol/L BUN 21 H (9-20) mg/dL Glucose 134 H (74-99) mg/dL POC Glucose (mg/dL) 184 H (70-110) mg/dL Calcium 8.1 L (8.4-10.2) mg/dL AST 15 L (17-59) U/L C-Reactive Protein 30.8 H (<1.0) mg/dL Total Protein 5.0 L (6.3-8.2) g/dL Albumin 2.6 L (3.5-5.0) g/dL 12/18/22 12/18/22 12/18/22 Range/Units 05:31 06:39 11:51 WBC 12.5 H (3.8-10.6) k/uL RBC 4.03 L (4.30-5.90) m/uL Hgb 12.1 L (13.0-17.5) gm/dL Hct 36.0 L (39.0-53.0) % Neutrophils # 9.3 H (1.3-7.7) k/uL Monocytes # (0-1.0) k/uL ESR 66 H (0-20) mm/Hr Fibrinogen (200-500) mg/dL Sodium (137-145) mmol/L Carbon Dioxide (22-30) mmol/L BUN (9-20) mg/dL Glucose (74-99) mg/dL POC Glucose (mg/dL) 142 H 152 H (70-110) mg/dL Calcium (8.4-10.2) mg/dL AST (17-59) U/L C-Reactive Protein (<1.0) mg/dL Total Protein (6.3-8.2) g/dL Albumin (3.5-5.0) g/dL Microbiology - Last 24 Hours (Table) 12/16/22 21:20 Blood Culture - Preliminary Blood Assessment and Plan Assessment: Assessment and plan * Acute pulmonary embolism status post a course * Osteomyellitus status post for amputation right second toe * Diabetic foot ulcer * Sepsis secondary to diabetic foot infection * Dyslipidemia * Diabetic neuropathy * History of coronary artery disease * In regards to pulmonary embolism patient seen by interventional cardiology, pulmonary medicine. Status post EKOS. On Eliquis now * In regards to osteomyelitis continue cefepime, vancomycin, Flagyl infectious disease following * In regards to diabetic foot ulcer continue with wound care * Regards to sepsis, follow-up on blood cultures, continue with fluid hydration * In regards to coronary artery disease this is a chronic problem stable continue home medications * CODE STATUS is full code
[2022-12-18] MEDS: SODIUM CHLORIDE 0.9% 1,000 ML IV SCH (13:47)
[2022-12-18] MEDS: VANCOMYCIN 2,000 MG in SODIUM CHLORIDE 0.9% 500 ML 500 ML IVPB SCH (13:52)
--- NOTE | 2022-12-18 14:49 | P.PN ---
Subjective Progress Note Date: 12/18/22 This is a 57-year-old white male with history of multiple medical problems, patient is known to have history of peripheral vessel occlusive disease, and history of cellulitis he was admitted last to our institution on 10/17/2022, and he underwent the right second toe amputation on 10/19 patient had a right second toe osteomyelitis. He also had diabetic foot infection and a known history of type 2 diabetes as well as coronary artery disease and hypertension. Patient has been doing well except he was supposed to follow-up with Dr. Rodriguez after his amputation, today the patient was supposed to see Dr. Rodriguez for follow-up on his toe amputation, and when he presented to [facility] he was complaining of left-sided pleuritic chest pain for the last 2 days with some shortness of breath. CT angiogram was done and it showed significant pulmonary embolism involving the left lung mostly the left lower lobe and the patient had the right ventricular strain. He was seen by cardiology on consultation, patient was brought in to [facility], underwent EKOS thrombolysis, and he was transferred to the ICU, we were asked to see him on consultation. During my evaluation, the patient had no shortness of breath his chest pain is already improving slightly pleuritic in nature on the left side of the chest, no cough, no fever no chills no hemoptysis. No nausea no vomiting he did feel lightheaded prior to this procedure. Presently relatively asymptomatic. Patient was reevaluated today on 12/17/2022, remains in the ICU, continues to have left-sided pleuritic chest pain, patient felt much better when he was given Toradol, and I'm recommending another dose of Toradol for his left sided pleuritic chest pain patient is on room air, his O2 sats is 93%. He did spike a temp last night of 102. Follow-up chest x-ray is pending this morning. WBC count today is 16.5 hemoglobin is 13.1, his fibrinogen is 746 patient continues to have a sheath in place, in the left groin, and his alteplase infusion is finished. Cardiology will likely transition the patient to [facility]. The patient is seen today 12/18/2022 in follow-up on the regular medical floor. His sheaths were removed yesterday. He is sitting up in bed. Awake and alert in no acute distress. He is still having some left-sided pleuritic chest pain. Maintaining good O2 saturations in the 90s on room air. He's afebrile. Hemodynamically stable. White count 12.5. Hemoglobin 12.1. Platelets 288. Sodium 132. Potassium 4.3. Bicarb 20. BUN 21. Creatinine 0.77. Glucose 134. He is currently on vancomycin, Flagyl and cefepime. Anticoagulated with Eliquis. Blood cultures reveal no growth. His x-ray reveals patchy infiltrate in the left lower lobe. Trace left effusion. Objective - Vital Signs Vital signs: Vital Signs Temp 98.9 F 12/18/22 11:15 Pulse 86 12/18/22 11:15 Resp 20 12/18/22 11:15 BP 110/68 12/18/22 11:15 Pulse Ox 93 L 12/18/22 11:15 FiO2 Intake & Output 12/17/22 12/18/22 12/18/22 18:59 06:59 18:59 Intake Total 427 600 480 Output Total 2475 1220 875 Balance -2048 -620 -395 Weight 94.3 kg Intake: IV 600 Cefepime 2 gm In Sodium 100 Chloride 0.9% 100 ml @ 25 mls/hr IVPB Q8HR [facility] Rx# :[id number] Vancomycin 2,000 mg In 500 Sodium Chloride 0.9% 500 ml 500 ml @ 167 mls/hr IVPB ONCE ONE Rx#: [id number] Intake, IV Titration 427 Amount Sodium Chloride 0.9% 1, 70 000 ml @ 70 mls/hr IV . [id number] [facility] Rx#:[id number] Sodium Chloride 0.9% 1, 357 000 ml @ Per Protocol IV .Q0M [facility] Rx#:[id number] Oral 480 Output: Urine 2475 1220 875 Other: Voiding Method Indwelling Catheter Indwelling Catheter Urinal - Exam GENERAL EXAM: Alert, 57-year-old male patient, on room air, comfortable in no apparent distress. HEAD: Normocephalic. EYES: Normal reaction of pupils, equal size. NOSE: Clear with pink turbinates. THROAT: No erythema or exudates. NECK: No masses, no JVD. CHEST: No chest wall deformity. LUNGS: Equal air entry with no crackles, wheeze, rhonchi or dullness. CVS: S1 and S2 normal with no audible murmur, regular rhythm. ABDOMEN: No hepatosplenomegaly, normal bowel sounds, no guarding or rigidity. SPINE: No scoliosis or deformity SKIN: No rashes CENTRAL NERVOUS SYSTEM: No focal deficits, tone is normal in all 4 extremities. EXTREMITIES: PICC line to the right upper extremity. Right second toe amputation, dressings to the bilateral feet.. There is no peripheral edema. No clubbing, no cyanosis. Peripheral pulses are intact. - Labs CBC & Chem 7: 12/18/22 05:31 12/18/22 05:26 Labs: Abnormal Lab Results - Last 24 Hours (Table) 12/17/22 12/17/22 12/17/22 Range/Units 17:02 20:23 22:16 WBC (3.8-10.6) k/uL RBC (4.30-5.90) m/uL Hgb (13.0-17.5) gm/dL Hct (39.0-53.0) % Neutrophils # (1.3-7.7) k/uL ESR (0-20) mm/Hr Fibrinogen 821 H (200-500) mg/dL Sodium (137-145) mmol/L Carbon Dioxide (22-30) mmol/L BUN (9-20) mg/dL Glucose (74-99) mg/dL POC Glucose (mg/dL) 157 H 184 H (70-110) mg/dL Calcium (8.4-10.2) mg/dL AST (17-59) U/L C-Reactive Protein (<1.0) mg/dL Total Protein (6.3-8.2) g/dL Albumin (3.5-5.0) g/dL 12/18/22 12/18/22 12/18/22 Range/Units 05:26 05:31 06:39 WBC 12.5 H (3.8-10.6) k/uL RBC 4.03 L (4.30-5.90) m/uL Hgb 12.1 L (13.0-17.5) gm/dL Hct 36.0 L (39.0-53.0) % Neutrophils # 9.3 H (1.3-7.7) k/uL ESR 66 H (0-20) mm/Hr Fibrinogen (200-500) mg/dL Sodium 132 L (137-145) mmol/L Carbon Dioxide 20 L (22-30) mmol/L BUN 21 H (9-20) mg/dL Glucose 134 H (74-99) mg/dL POC Glucose (mg/dL) 142 H (70-110) mg/dL Calcium 8.1 L (8.4-10.2) mg/dL AST 15 L (17-59) U/L C-Reactive Protein 30.8 H (<1.0) mg/dL Total Protein 5.0 L (6.3-8.2) g/dL Albumin 2.6 L (3.5-5.0) g/dL 12/18/22 Range/Units 11:51 WBC (3.8-10.6) k/uL RBC (4.30-5.90) m/uL Hgb (13.0-17.5) gm/dL Hct (39.0-53.0) % Neutrophils # (1.3-7.7) k/uL ESR (0-20) mm/Hr Fibrinogen (200-500) mg/dL Sodium (137-145) mmol/L Carbon Dioxide (22-30) mmol/L BUN (9-20) mg/dL Glucose (74-99) mg/dL POC Glucose (mg/dL) 152 H (70-110) mg/dL Calcium (8.4-10.2) mg/dL AST (17-59) U/L C-Reactive Protein (<1.0) mg/dL Total Protein (6.3-8.2) g/dL Albumin (3.5-5.0) g/dL Microbiology - Last 24 Hours (Table) 12/16/22 21:20 Blood Culture - Preliminary Blood Assessment and Plan Assessment: Acute pulmonary embolism Left sided pleuritic chest wall pain secondary to above Acute right ventricular strain, status post EKOS thrombolysis. Postoperative day #3 Type 2 diabetes with diabetic foot ulcers History of osteomyelitis requiring toe amputation/right second toe Dyslipidemia Diabetic neuropathy History of coronary artery disease Plan: The patient was seen and evaluated Chest x-ray, labs and medications reviewed Stable and on room air Initiated on Eliquis Antibiotics per ID service We will continue to follow I have personally seen and examined the patient, performed the documentation and the assessment and plan as written. Number of minutes spent on the visit: 10.
--- NOTE | 2022-12-18 15:51 | P.PN ---
Subjective Progress Note Date: 12/18/22 Principal diagnosis: Right diabetic foot infection/right foot osteomyelitis Patient is a 57-year-old male with a past medical history significant for type 2 diabetes mellitus hypertension peripheral arterial disease history of right big toe amputation secondary to infection and recently did have a right second toe amputation done at [facility] on 10/17/2022, patient subsequently did have reopening of the wound to the right second toe amputation site with some purulent drainage and the patient was advised by his surgeon to go to [facility], where the patient was admitted on 11/26/2022 patient did have local wound culture done which grew MRSA and gram-negative patient did get a PICC line and was advised IV antibiotic therapy, with a readmission to the hospital with left-sided chest pain has been diagnosed with extensive left-sided PE with the right heart strain and the patient is status post EKOS procedure. On today's evaluation that is 12/18/2022 12/18/2022, the patient remains to be afebrile the patient is breathing comfortably on room air, the patient left- sided chest pain has decreased in intensity and no significant cough or sputum production, patient denies nausea/vomiting and no diarrhea, Patient white count is 12.5, creatinine 0.7; blood cultures pending Objective - Vital Signs Vital signs: Vital Signs Temp 98.9 F 12/18/22 11:15 Pulse 86 12/18/22 11:15 Resp 20 12/18/22 11:15 BP 110/68 12/18/22 11:15 Pulse Ox 93 L 12/18/22 11:15 FiO2 Intake & Output 12/17/22 12/18/22 12/18/22 18:59 06:59 18:59 Intake Total 427 600 Output Total 4150 8257 875 Balance -2048 -620 -875 Weight 94.3 kg Intake: IV 600 Cefepime 2 gm In Sodium 100 Chloride 0.9% 100 ml @ 25 mls/hr IVPB Q8HR [facility] Rx# :[id number] Vancomycin 2,000 mg In 500 Sodium Chloride 0.9% 500 ml 500 ml @ 167 mls/hr IVPB ONCE ONE Rx#: [id number] Intake, IV Titration 427 Amount Sodium Chloride 0.9% 1, 70 000 ml @ 70 mls/hr IV . [id number] [facility] Rx#:[id number] Sodium Chloride 0.9% 1, 357 000 ml @ Per Protocol IV .Q0M [facility] Rx#:[id number] Output: Urine 9845 1220 875 Other: Voiding Method Indwelling Catheter Indwelling Catheter Urinal - Exam GENERAL DESCRIPTION: Middle-aged male lying in bed in no distress RESPIRATORY SYSTEM: Unlabored breathing , decreased breath sounds at bases HEART: S1 S2 regular rate and rhythm , ABDOMEN: Soft , no tenderness EXTREMITIES: Right foot is currently dressed - Labs CBC & Chem 7: 12/18/22 05:31 12/18/22 05:26 Labs: Abnormal Lab Results - Last 24 Hours (Table) 12/17/22 12/17/22 12/17/22 Range/Units 12:29 12:29 17:02 WBC 15.7 H (3.8-10.6) k/uL RBC (4.30-5.90) m/uL Hgb (13.0-17.5) gm/dL Hct (39.0-53.0) % Neutrophils # 11.8 H (1.3-7.7) k/uL Monocytes # 1.4 H (0-1.0) k/uL ESR (0-20) mm/Hr Fibrinogen (200-500) mg/dL Sodium 132 L (137-145) mmol/L Carbon Dioxide 20 L (22-30) mmol/L BUN (9-20) mg/dL Glucose 123 H (74-99) mg/dL POC Glucose (mg/dL) 157 H (70-110) mg/dL Calcium 8.3 L (8.4-10.2) mg/dL AST (17-59) U/L C-Reactive Protein (<1.0) mg/dL Total Protein (6.3-8.2) g/dL Albumin (3.5-5.0) g/dL 12/17/22 12/17/22 12/18/22 Range/Units 20:23 22:16 05:26 WBC (3.8-10.6) k/uL RBC (4.30-5.90) m/uL Hgb (13.0-17.5) gm/dL Hct (39.0-53.0) % Neutrophils # (1.3-7.7) k/uL Monocytes # (0-1.0) k/uL ESR (0-20) mm/Hr Fibrinogen 821 H (200-500) mg/dL Sodium 132 L (137-145) mmol/L Carbon Dioxide 20 L (22-30) mmol/L BUN 21 H (9-20) mg/dL Glucose 134 H (74-99) mg/dL POC Glucose (mg/dL) 184 H (70-110) mg/dL Calcium 8.1 L (8.4-10.2) mg/dL AST 15 L (17-59) U/L C-Reactive Protein 30.8 H (<1.0) mg/dL Total Protein 5.0 L (6.3-8.2) g/dL Albumin 2.6 L (3.5-5.0) g/dL 12/18/22 12/18/22 Range/Units 05:31 06:39 WBC 12.5 H (3.8-10.6) k/uL RBC 4.03 L (4.30-5.90) m/uL Hgb 12.1 L (13.0-17.5) gm/dL Hct 36.0 L (39.0-53.0) % Neutrophils # 9.3 H (1.3-7.7) k/uL Monocytes # (0-1.0) k/uL ESR 66 H (0-20) mm/Hr Fibrinogen (200-500) mg/dL Sodium (137-145) mmol/L Carbon Dioxide (22-30) mmol/L BUN (9-20) mg/dL Glucose (74-99) mg/dL POC Glucose (mg/dL) 142 H (70-110) mg/dL Calcium (8.4-10.2) mg/dL AST (17-59) U/L C-Reactive Protein (<1.0) mg/dL Total Protein (6.3-8.2) g/dL Albumin (3.5-5.0) g/dL Microbiology - Last 24 Hours (Table) 12/16/22 21:20 Blood Culture - Preliminary Blood Assessment and Plan (1) Diabetic foot ulcer Current Visit: No Status: Acute Code(s): E11.621 - TYPE 2 DIABETES MELLITUS WITH FOOT ULCER; L97.509 - NON-PRESSURE CHRONIC ULCER OTH PRT UNSP FOOT W UNSP SEVERITY SNOMED Code(s): 835234156 (2) Osteomyelitis of toe of right foot Current Visit: No Status: Acute Code(s): M86.9 - OSTEOMYELITIS, UNSPECIFIED SNOMED Code(s): 130431137 Plan: 1patient presented to the hospital with sepsis in this patient with a fever tachycardia elevated white count source likely right second toe amputation site wound infection with osteomyelitis that was diagnosed at [facility] on 11/26/2022, wound culture at the time did grew MRSA gram-negative to be the likely pathogen as the patient currently was seem to be drying out without any drainage 2Patient to continue with vancomycin pharmacy to dose cefepime and Flagyl 3- Doppler ultrasound of the left upper extremity was negative DVT however did shows possible SVT, patient is already on Eliquis Dictation was produced using [employer] dictation software. please excuse any grammatical, word or spelling errors. Time with Patient: Less than 30
[2022-12-18 16:40] LABS: Glucose,Whole Blood 165 mg/dL (70-110)
[2022-12-18] MEDS: MELATONIN 3 MG TABLET PO SCH (20:17)
[2022-12-18 20:47] LABS: Glucose,Whole Blood 175 mg/dL (70-110)
[2022-12-19] MEDS: VANCOMYCIN 2,000 MG in SODIUM CHLORIDE 0.9% 500 ML 500 ML IVPB SCH ×2 (02:09→13:34)
[2022-12-19] MEDS: HYDROmorphone 0.5 MG/0.5 ML SYRINGE IVP PRN ×6 (02:09→20:48)
[2022-12-19] MEDS: ALPRAZolam 0.25 MG TAB PO PRN ×2 (04:06→16:49)
[2022-12-19 06:28] LABS: Glucose,Whole Blood 139 mg/dL (70-110)
[2022-12-19] MEDS: SODIUM CHLORIDE 0.9% 1,000 ML IV SCH ×2 (06:39→09:05)
[2022-12-19] MEDS: INSULIN ASPART (NovoLOG) 100 UNIT/ML VIAL SQ SCH ×4 (06:40→20:48)
[2022-12-19] MEDS: PANTOPRAZOLE 40 MG TABLET PO SCH (06:42)
[2022-12-19 08:52] LABS: HCT 35.7 % (39.0-53.0); HGB 11.8 gm/dL (13.0-17.5); MCH 30.3 pg (25.0-35.0); MCHC 33.2 g/dL (31.0-37.0); MCV 91.3 fL (80.0-100.0); Mean Platelet Volume 7.2; Platelet Count 337 k/uL (150-450); RBC 3.91 m/uL (4.30-5.90); RDW 13.6 % (11.5-15.5); WBC 9.4 k/uL (3.8-10.6)
[2022-12-19 09:00] LABS: ALT 15 U/L (4-49); AST 32 U/L (17-59); African American GFR (CKD) >90 (>60 ml/min/1.73 sqM); Albumin 2.9 g/dL (3.5-5.0); Alkaline Phosphatase 69 U/L (38-126); Anion Gap 10 mmol/L; Blood Urea Nitrogen 20 mg/dL (9-20); Calcium 8.4 mg/dL (8.4-10.2); Carbon Dioxide 20 mmol/L (22-30); Chloride 106 mmol/L (98-107); Glucose 160 mg/dL (74-99); Non-African American GFR(CKD) >90 (>60 ml/min/1.73 sqM); Sodium 136 mmol/L (137-145); Total Bilirubin 0.5 mg/dL (0.2-1.3); Total Protein 5.7 g/dL (6.3-8.2)
[2022-12-19] MEDS: metroNIDAZOLE 500 MG TAB PO SCH ×3 (09:02→20:47)
[2022-12-19] MEDS: Apixaban Initiation Dose--VTE 5 MG TAB PO SCH ×2 (09:02→20:48)
[2022-12-19] MEDS: CEFEPIME 2 GM in SODIUM CHLORIDE 0.9% 100 ML IVPB SCH ×2 (09:02→16:51)
[2022-12-19] MEDS: LISINOPRIL-HCTZ 20-12.5 MG 1 EACH TAB PO SCH (09:02)
[2022-12-19] MEDS: PREGABALIN 50 MG CAP PO SCH ×2 (09:02→20:47)
[2022-12-19 09:11] LABS: C Reactive Protein 16.8 mg/dL (<1.0); Potassium 4.9 mmol/L (3.5-5.1)
[2022-12-19] MEDS ORDERED: IPRATROPIUM-ALBUTEROL 3 ML NEB INHALATION PRN (10:24)
[2022-12-19 11:40] LABS: Glucose,Whole Blood 189 mg/dL (70-110)
--- NOTE | 2022-12-19 16:18 | P.PN ---
Subjective Progress Note Date: 12/19/22 Principal diagnosis: Acute pulmonary embolism This is a 57-year-old white male with history of multiple medical problems, patient is known to have history of peripheral vessel occlusive disease, and history of cellulitis he was admitted last to our institution on 10/17/2022, and he underwent the right second toe amputation on 10/19 patient had a right second toe osteomyelitis. He also had diabetic foot infection and a known history of type 2 diabetes as well as coronary artery disease and hypertension. Patient has been doing well except he was supposed to follow-up with Dr. Rodriguez after his amputation, today the patient was supposed to see Dr. Rodriguez for follow-up on his toe amputation, and when he presented to [facility] he was complaining of left-sided pleuritic chest pain for the last 2 days with some shortness of breath. CT angiogram was done and it showed significant pulmonary embolism involving the left lung mostly the left lower lobe and the patient had the right ventricular strain. He was seen by cardiology on consultation, patient was brought in to [facility], underwent EKOS thrombolysis, and he was transferred to the ICU, we were asked to see him on consultation. During my evaluation, the patient had no shortness of breath his chest pain is already improving slightly pleuritic in nature on the left side of the chest, no cough, no fever no chills no hemoptysis. No nausea no vomiting he did feel lightheaded prior to this procedure. Presently relatively asymptomatic. Patient was reevaluated today on 12/17/2022, remains in the ICU, continues to have left-sided pleuritic chest pain, patient felt much better when he was given Toradol, and I'm recommending another dose of Toradol for his left sided pleurit ic chest pain patient is on room air, his O2 sats is 93%. He did spike a temp last night of 102. Follow-up chest x-ray is pending this morning. WBC count today is 16.5 hemoglobin is 13.1, his fibrinogen is 746 patient continues to have a sheath in place, in the left groin, and his alteplase infusion is finished. Cardiology will likely transition the patient to [facility]. Reevaluated today on 12/19/2022, patient continues to have intermittent episodes of cough and left-sided vague pleuritic chest pain chest x-ray 2 days ago showed increase patchy infiltrate at the left lower lobe and trace of left pleural effusion felt to be related to his pulmonary embolism and likely infarcted left lower lobe. Will recommend follow-up chest x-ray in a.m. WBC count is 9.4 hemoglobin 11.8 basic metabolic profile is normal renal profile is normal C- reactive protein is elevated at almost 17 Objective - Vital Signs Vital signs: Vital Signs Temp 98.8 F 12/19/22 11:43 Pulse 86 12/19/22 11:43 Resp 20 12/19/22 11:43 BP 126/77 12/19/22 11:43 Pulse Ox 95 12/19/22 11:43 FiO2 Intake & Output 12/18/22 12/19/22 12/19/22 18:59 06:59 18:59 Intake Total 480 960 Output Total 875 2360 1550 Balance -395 -2580 -590 Weight 86 kg Intake: Oral 480 960 Output: Urine 875 2360 1550 Other: Voiding Method Urinal Urinal Urinal # Voids 2 - Exam Physical Exam are unrevealing 57-year-old white male in no distress, on room air O2 saturation 95% Head: Atraumatic normocephalic HEENT:[Neck is supple.] [No neck masses.] [No thyromegaly.] [No JVD.] Chest: [Fine crackles at the left base Cardiac Exam: [Normal S1 and S2, no S3 gallop, no murmur.] Abdomen: [Soft, nontender, no megaly, no rebound, no guarding, normal bowel sounds.] Extremities: [No clubbing, no edema, no cyanosis.] Those are covered with sterile dressing patient has good posterior tibial pulses bilaterally. Neurological Exam: [No focal neurologic deficit.] Psychiatric: Normal mood affect and normal mental status examination skin: No rashes - Labs CBC & Chem 7: 12/19/22 08:24 12/19/22 08:24 Labs: Abnormal Lab Results - Last 24 Hours (Table) 12/18/22 12/18/22 12/18/22 Range/Units 05:26 16:38 20:44 RBC (4.30-5.90) m/uL Hgb (13.0-17.5) gm/dL Hct (39.0-53.0) % Sodium (137-145) mmol/L Carbon Dioxide (22-30) mmol/L Glucose (74-99) mg/dL POC Glucose (mg/dL) 165 H 175 H (70-110) mg/dL C-Reactive Protein (<1.0) mg/dL Total Protein (6.3-8.2) g/dL Albumin (3.5-5.0) g/dL Procalcitonin 1.74 H (0.02-0.09) ng/mL 12/19/22 12/19/22 12/19/22 Range/Units 06:27 08:24 08:24 RBC 3.91 L (4.30-5.90) m/uL Hgb 11.8 L (13.0-17.5) gm/dL Hct 35.7 L (39.0-53.0) % Sodium 136 L (137-145) mmol/L Carbon Dioxide 20 L (22-30) mmol/L Glucose 160 H (74-99) mg/dL POC Glucose (mg/dL) 139 H (70-110) mg/dL C-Reactive Protein 16.8 H (<1.0) mg/dL Total Protein 5.7 L (6.3-8.2) g/dL Albumin 2.9 L (3.5-5.0) g/dL Procalcitonin (0.02-0.09) ng/mL 12/19/22 Range/Units 11:38 RBC (4.30-5.90) m/uL Hgb (13.0-17.5) gm/dL Hct (39.0-53.0) % Sodium (137-145) mmol/L Carbon Dioxide (22-30) mmol/L Glucose (74-99) mg/dL POC Glucose (mg/dL) 189 H (70-110) mg/dL C-Reactive Protein (<1.0) mg/dL Total Protein (6.3-8.2) g/dL Albumin (3.5-5.0) g/dL Procalcitonin (0.02-0.09) ng/mL Microbiology - Last 24 Hours (Table) 12/16/22 21:20 Blood Culture - Preliminary Blood Assessment and Plan Assessment: Impression: Acute pulmonary embolism Acute right ventricular strain, status post EKOS thrombolysis. Postoperative day #4 Type 2 diabetes with diabetic foot ulcers History of osteomyelitis requiring toe amputation/right second toe Dyslipidemia Diabetic neuropathy History of coronary artery disease Recommendation: Continue course Continue antibiotics as per infectious disease Follow-up chest x-ray in a.m. Will continue to follow Added DuoNeb 4 times a day and when necessary Time with Patient: Less than 30
[2022-12-19 16:30] LABS: Glucose,Whole Blood 175 mg/dL (70-110)
--- NOTE | 2022-12-19 17:13 | P.PN ---
Subjective Progress Note Date: 12/19/22 Principal diagnosis: Right diabetic foot infection/right foot osteomyelitis Patient is a 57-year-old male with a past medical history significant for type 2 diabetes mellitus hypertension peripheral arterial disease history of right big toe amputation secondary to infection and recently did have a right second toe amputation done at [facility] on 10/17/2022, patient subsequently did have reopening of the wound to the right second toe amputation site with some purulent drainage and the patient was advised by his surgeon to go to [facility], where the patient was admitted on 11/26/2022 patient did have local wound culture done which grew MRSA and gram-negative patient did get a PICC line and was advised IV antibiotic therapy, with a readmission to the hospital with left-sided chest pain has been diagnosed with extensive left-sided PE with the right heart strain and the patient is status post EKOS procedure. On today's evaluation that is 12/19/2022, the patient continues to be afebrile the patient is breathing comfortably on room air, the patient is complaining of some chest pain and cough but not bring up any sputum, patient denies abdominal pain and no nausea/vomiting and no diarrhea has been reported Patient white count normalized to 9.4 5, creatinine 0.70; blood cultures pending Objective - Vital Signs Vital signs: Vital Signs Temp 98.8 F 12/19/22 11:43 Pulse 86 12/19/22 11:43 Resp 20 12/19/22 11:43 BP 126/77 12/19/22 11:43 Pulse Ox 95 12/19/22 11:43 FiO2 Intake & Output 12/18/22 12/19/22 12/19/22 18:59 06:59 18:59 Intake Total 480 480 Output Total 875 2360 1075 Balance -473 -9706 -501 Weight 86 kg Intake: Oral 480 480 Output: Urine 875 2360 1075 Other: Voiding Method Urinal Urinal Urinal # Voids 2 - Exam GENERAL DESCRIPTION: Middle-aged male lying in bed in no distress RESPIRATORY SYSTEM: Unlabored breathing , decreased breath sounds at bases HEART: S1 S2 regular rate and rhythm , ABDOMEN: Soft , no tenderness EXTREMITIES: Right foot is currently dressed - Labs CBC & Chem 7: 12/19/22 08:24 12/19/22 08:24 Labs: Abnormal Lab Results - Last 24 Hours (Table) 12/18/22 12/18/22 12/18/22 Range/Units 05:26 16:38 20:44 RBC (4.30-5.90) m/uL Hgb (13.0-17.5) gm/dL Hct (39.0-53.0) % Sodium (137-145) mmol/L Carbon Dioxide (22-30) mmol/L Glucose (74-99) mg/dL POC Glucose (mg/dL) 165 H 175 H (70-110) mg/dL C-Reactive Protein (<1.0) mg/dL Total Protein (6.3-8.2) g/dL Albumin (3.5-5.0) g/dL Procalcitonin 1.74 H (0.02-0.09) ng/mL 12/19/22 12/19/22 12/19/22 Range/Units 06:27 08:24 08:24 RBC 3.91 L (4.30-5.90) m/uL Hgb 11.8 L (13.0-17.5) gm/dL Hct 35.7 L (39.0-53.0) % Sodium 136 L (137-145) mmol/L Carbon Dioxide 20 L (22-30) mmol/L Glucose 160 H (74-99) mg/dL POC Glucose (mg/dL) 139 H (70-110) mg/dL C-Reactive Protein 16.8 H (<1.0) mg/dL Total Protein 5.7 L (6.3-8.2) g/dL Albumin 2.9 L (3.5-5.0) g/dL Procalcitonin (0.02-0.09) ng/mL 12/19/22 Range/Units 11:38 RBC (4.30-5.90) m/uL Hgb (13.0-17.5) gm/dL Hct (39.0-53.0) % Sodium (137-145) mmol/L Carbon Dioxide (22-30) mmol/L Glucose (74-99) mg/dL POC Glucose (mg/dL) 189 H (70-110) mg/dL C-Reactive Protein (<1.0) mg/dL Total Protein (6.3-8.2) g/dL Albumin (3.5-5.0) g/dL Procalcitonin (0.02-0.09) ng/mL Microbiology - Last 24 Hours (Table) 12/16/22 21:20 Blood Culture - Preliminary Blood Assessment and Plan (1) Diabetic foot ulcer Current Visit: No Status: Acute Code(s): E11.621 - TYPE 2 DIABETES MELLITUS WITH FOOT ULCER; L97.509 - NON-PRESSURE CHRONIC ULCER OTH PRT UNSP FOOT W UNSP SEVERITY SNOMED Code(s): 653867377 (2) Osteomyelitis of toe of right foot Current Visit: No Status: Acute Code(s): M86.9 - OSTEOMYELITIS, UNSPECIFIED SNOMED Code(s): 565790026 Plan: 1patient presented to the hospital with sepsis in this patient with a fever tachycardia elevated white count source likely right second toe amputation site wound infection with osteomyelitis that was diagnosed at [facility] on 11/26/2022, wound culture at the time did grew MRSA gram-negative to be the likely pathogen as the patient currently was seem to be drying out without any drainage 2 Doppler ultrasound of the left upper extremity was negative DVT however did shows possible SVT, patient is already on Eliquis 3-Patient to continue with vancomycin pharmacy to dose cefepime and Flagyl Dictation was produced using [employer] dictation software. please excuse any grammatical, word or spelling errors. Time with Patient: Less than 30
--- NOTE | 2022-12-19 18:07 | PN ---
PROGRESS NOTE A 57-year-old gentleman, well known to me. The patient had a right big toe amputation in the past, and the patient had a right foot ray amputation of the second toe. The patient has been coming into the hospital with history of recurrent infection. He was admitted at [facility]. We have been treating with local wound care and IV antibiotic. The patient has a history of MRSA, under care of Infectious Disease. The patient had a PE, and the patient was admitted to [facility]. On examination today, his vital signs are stable. Femorals are present. Dorsal pedis is 1+. Right foot; the patient's wound is not open. There is a scab formation noted. Dorsal pedis is 2+. The patient is on IV antibiotic under care of Infectious Disease. The patient wants to go to the bathroom. I advised him to have an offloading shoe with help. TASHA / STERLINGN: [id number] /
--- NOTE | 2022-12-19 18:17 | P.PN ---
Subjective Progress Note Date: 12/19/22 57-year-old gentleman with past medical history significant for peripheral vessel occlusive disease,type 2 diabetes as well as coronary artery disease, hypertension who was transferred from [facility] after being diagnosed with acute PE for EKOS. Patient recently was admitted to [facility] on 10/17/2022, and he underwent the right second toe amputation on 10/19 for right second toe osteomyelitis. Patient was being seen by ID for IV antibiotics and by vascular surgery for wound care. Patient went to [facility] and therefore he was complaining of left-sided chest pain. Patient was immediately sent for computed tomography scan of chest. * CT angiogram was done and it showed significant pulmonary embolism involving the left lung mostly the left lower lobe and the patient had the right ventricular strain * Patient was transferred to [facility] for EKOS admitted to ICU Objective - Vital Signs Vital signs: Vital Signs Temp 98.8 F 12/19/22 11:43 Pulse 86 12/19/22 11:43 Resp 20 12/19/22 11:43 BP 126/77 12/19/22 11:43 Pulse Ox 95 12/19/22 11:43 FiO2 Intake & Output 12/18/22 12/19/22 12/19/22 18:59 06:59 18:59 Intake Total 480 480 Output Total 875 2360 1075 Balance -395 -7256 -662 Weight 86 kg Intake: Oral 480 480 Output: Urine 875 2360 1075 Other: Voiding Method Urinal Urinal Urinal # Voids 2 - Exam GENERAL: The patient is alert and oriented x3, not in any acute distress. HEENT: Pupils are round and equally reacting to light. EOMI. CARDIOVASCULAR: S1 and S2 present. No murmurs, rubs, or gallops. PULMONARY: Chest is clear to auscultation, no wheezing or crackles. ABDOMEN: Soft, nontender, nondistended, normoactive bowel sounds. EXTREMITIES: Right foot second toe amputation seen NEUROLOGICAL: Gross neurological examination did not reveal any focal deficits. - Labs CBC & Chem 7: 12/19/22 08:24 12/19/22 08:24 Labs: Abnormal Lab Results - Last 24 Hours (Table) 12/18/22 12/18/22 12/18/22 Range/Units 05:26 16:38 20:44 RBC (4.30-5.90) m/uL Hgb (13.0-17.5) gm/dL Hct (39.0-53.0) % Sodium (137-145) mmol/L Carbon Dioxide (22-30) mmol/L Glucose (74-99) mg/dL POC Glucose (mg/dL) 165 H 175 H (70-110) mg/dL C-Reactive Protein (<1.0) mg/dL Total Protein (6.3-8.2) g/dL Albumin (3.5-5.0) g/dL Procalcitonin 1.74 H (0.02-0.09) ng/mL 12/19/22 12/19/22 12/19/22 Range/Units 06:27 08:24 08:24 RBC 3.91 L (4.30-5.90) m/uL Hgb 11.8 L (13.0-17.5) gm/dL Hct 35.7 L (39.0-53.0) % Sodium 136 L (137-145) mmol/L Carbon Dioxide 20 L (22-30) mmol/L Glucose 160 H (74-99) mg/dL POC Glucose (mg/dL) 139 H (70-110) mg/dL C-Reactive Protein 16.8 H (<1.0) mg/dL Total Protein 5.7 L (6.3-8.2) g/dL Albumin 2.9 L (3.5-5.0) g/dL Procalcitonin (0.02-0.09) ng/mL 12/19/22 Range/Units 11:38 RBC (4.30-5.90) m/uL Hgb (13.0-17.5) gm/dL Hct (39.0-53.0) % Sodium (137-145) mmol/L Carbon Dioxide (22-30) mmol/L Glucose (74-99) mg/dL POC Glucose (mg/dL) 189 H (70-110) mg/dL C-Reactive Protein (<1.0) mg/dL Total Protein (6.3-8.2) g/dL Albumin (3.5-5.0) g/dL Procalcitonin (0.02-0.09) ng/mL Microbiology - Last 24 Hours (Table) 12/16/22 21:20 Blood Culture - Preliminary Blood Assessment and Plan Assessment: * Acute pulmonary embolism status post a course * Osteomyellitus status post for amputation right second toe * Diabetic foot ulcer * Sepsis secondary to diabetic foot infection * Dyslipidemia * Diabetic neuropathy * History of coronary artery disease * In regards to pulmonary embolism patient seen by interventional cardiology, pulmonary medicine. Status post EKOS. On Eliquis now * In regards to osteomyelitis continue cefepime, vancomycin, Flagyl infectious disease following * In regards to diabetic foot ulcer continue with wound care * Regards to sepsis, follow-up on blood cultures, continue with fluid hydration * In regards to coronary artery disease this is a chronic problem stable continue home medications * CODE STATUS is full code
[2022-12-19 19:41] LABS: Glucose,Whole Blood 198 mg/dL (70-110)
[2022-12-19] MEDS: MELATONIN 3 MG TABLET PO SCH (20:48)
[2022-12-20] MEDS: CEFEPIME 2 GM in SODIUM CHLORIDE 0.9% 100 ML IVPB SCH ×3 (00:32→14:39)
[2022-12-20] MEDS: VANCOMYCIN 2,000 MG in SODIUM CHLORIDE 0.9% 500 ML 500 ML IVPB SCH ×2 (02:49→14:39)
[2022-12-20] MEDS: SODIUM CHLORIDE 0.9% 1,000 ML IV SCH ×2 (04:53→14:36)
[2022-12-20] MEDS: ALPRAZolam 0.25 MG TAB PO PRN (05:26)
[2022-12-20] MEDS: INSULIN ASPART (NovoLOG) 100 UNIT/ML VIAL SQ SCH ×4 (08:03→20:28)
[2022-12-20] MEDS: HYDROmorphone 0.5 MG/0.5 ML SYRINGE IVP PRN ×5 (08:10→20:29)
[2022-12-20] MEDS: PANTOPRAZOLE 40 MG TABLET PO SCH (08:11)
[2022-12-20] MEDS: Apixaban Initiation Dose--VTE 5 MG TAB PO SCH ×2 (08:11→20:30)
[2022-12-20] MEDS: metroNIDAZOLE 500 MG TAB PO SCH ×3 (08:11→20:28)
[2022-12-20] MEDS: PREGABALIN 50 MG CAP PO SCH ×2 (08:11→20:29)
[2022-12-20] MEDS: LISINOPRIL-HCTZ 20-12.5 MG 1 EACH TAB PO SCH (08:20)
--- NOTE | 2022-12-20 08:21 | XR ---
EXAMINATION TYPE: XR chest 1V portable DATE OF EXAM: 12/20/2022 HISTORY: Shortness of breath. COMPARISON: 12/17/2022 TECHNIQUE: Single view of the chest is submitted. FINDINGS: Demonstrated are scattered senescent parenchymal change. There is persistent left lower lobe infiltrate slightly improved from prior study. The heart is stable. Hilar and mediastinal structures are within normal limits. Degenerative changes are seen of the dorsal spine. IMPRESSION: 1. There is persistent left lower lobe infiltrate slightly improved from prior study.
[2022-12-20 08:53] LABS: Basophils % (A) 0 %; Eosinophils # (A) 0.8 k/uL (0-0.7); Eosinophils % (A) 7 %; HCT 39.9 % (39.0-53.0); Lymphocytes # (A) 1.5 k/uL (1.0-4.8); Lymphocytes % (A) 15 %; MCH 29.5 pg (25.0-35.0); MCHC 32.7 g/dL (31.0-37.0); MCV 90.4 fL (80.0-100.0); Mean Platelet Volume 7.8; Monocytes # (A) 0.8 k/uL (0-1.0); Monocytes % (A) 7 %; Neutrophils # (A) 7.2 k/uL (1.3-7.7); Neutrophils % (A) 69 %; Platelet Count 424 k/uL (150-450); RBC 4.42 m/uL (4.30-5.90); RDW 13.9 % (11.5-15.5); WBC 10.5 k/uL (3.8-10.6)
[2022-12-20 09:01] LABS: African American GFR (CKD) >90 (>60 ml/min/1.73 sqM); Anion Gap 10 mmol/L; Blood Urea Nitrogen 17 mg/dL (9-20); Calcium 9.1 mg/dL (8.4-10.2); Carbon Dioxide 23 mmol/L (22-30); Chloride 104 mmol/L (98-107); Glucose 155 mg/dL (74-99); Non-African American GFR(CKD) >90 (>60 ml/min/1.73 sqM); Potassium 4.7 mmol/L (3.5-5.1); Sodium 137 mmol/L (137-145)
[2022-12-20 11:38] LABS: Glucose,Whole Blood 239 mg/dL (70-110)
[2022-12-20] MEDS ORDERED: VANCOMYCIN TROUGH DUE 1 EACH MISC MISCELLANE ONE (13:00)
--- NOTE | 2022-12-20 13:11 | P.PN ---
Subjective Progress Note Date: 12/20/22 Principal diagnosis: Right diabetic foot infection/right foot osteomyelitis Patient is a 57-year-old male with a past medical history significant for type 2 diabetes mellitus hypertension peripheral arterial disease history of right big toe amputation secondary to infection and recently did have a right second toe amputation done at [facility] on 10/17/2022, patient subsequently did have reopening of the wound to the right second toe amputation site with some purulent drainage and the patient was advised by his surgeon to go to [facility], where the patient was admitted on 11/26/2022 patient did have local wound culture done which grew MRSA and gram-negative patient did get a PICC line and was advised IV antibiotic therapy, with a readmission to the hospital with left-sided chest pain has been diagnosed with extensive left-sided PE with the right heart strain and the patient is status post EKOS procedure. On today's evaluation that is 12/20/2022, the patient remains to be afebrile the patient is breathing comfortably on room air and not requiring supplemental oxygen, the patient is c/o some chest pain but no significant cough or sputum production , patient denies abdominal pain and no nausea/vomiting or diarrhea Patient white count normalized to 10.5, creatinine 0.62 blood cultures pending Objective - Vital Signs Vital signs: Vital Signs Temp 97.9 F 12/20/22 08:00 Pulse 83 12/20/22 08:00 Resp 18 12/20/22 08:00 BP 148/70 12/20/22 08:00 Pulse Ox 96 12/20/22 08:00 FiO2 Intake & Output 12/19/22 12/20/22 12/20/22 18:59 06:59 18:59 Intake Total 2200 Output Total 1550 700 Balance 650 -700 Intake: IV 200 Cefepime 2 gm In Sodium 200 Chloride 0.9% 100 ml @ 25 mls/hr IVPB Q8HR FRANCY Rx# :[id number] Intake, IV Titration 800 Amount Sodium Chloride 0.9% 1, 300 000 ml @ 75 mls/hr IV . [id number] FRANCY Rx#:[id number] Vancomycin 2,000 mg In 500 Sodium Chloride 0.9% 500 ml 500 ml @ 167 mls/hr IVPB Q12H FRANCY Rx#: [id number] Oral 1200 Output: Urine 1550 700 Other: Voiding Method Urinal Urinal - Exam GENERAL DESCRIPTION: Middle-aged male lying in bed in no distress RESPIRATORY SYSTEM: Unlabored breathing , decreased breath sounds at bases HEART: S1 S2 regular rate and rhythm , ABDOMEN: Soft , no tenderness EXTREMITIES: Right foot is currently dressed - Labs CBC & Chem 7: 12/20/22 08:17 12/20/22 08:17 Labs: Abnormal Lab Results - Last 24 Hours (Table) 12/19/22 12/19/22 12/19/22 Range/Units 11:38 16:28 19:39 Eosinophils # (0-0.7) k/uL Creatinine (0.66-1.25) mg/dL Glucose (74-99) mg/dL POC Glucose (mg/dL) 189 H 175 H 198 H (70-110) mg/dL 12/20/22 12/20/22 Range/Units 08:17 08:17 Eosinophils # 0.8 H (0-0.7) k/uL Creatinine 0.62 L (0.66-1.25) mg/dL Glucose 155 H (74-99) mg/dL POC Glucose (mg/dL) (70-110) mg/dL Microbiology - Last 24 Hours (Table) 12/16/22 21:20 Blood Culture - Preliminary Blood Assessment and Plan (1) Diabetic foot ulcer Current Visit: No Status: Acute Code(s): E11.621 - TYPE 2 DIABETES MELLITUS WITH FOOT ULCER; L97.509 - NON-PRESSURE CHRONIC ULCER OTH PRT UNSP FOOT W UNSP SEVERITY SNOMED Code(s): 705071775 (2) Osteomyelitis of toe of right foot Current Visit: No Status: Acute Code(s): M86.9 - OSTEOMYELITIS, UNSPECIFIED SNOMED Code(s): 261614813 Plan: 1patient presented to the hospital with sepsis in this patient with a fever t achycardia elevated white count source likely right second toe amputation site wound infection with osteomyelitis that was diagnosed at [facility] on 11/26/2022, wound culture at the time did grew MRSA gram-negative to be the likely pathogen as the patient currently was seem to be drying out without any drainage 2 Doppler ultrasound of the left upper extremity was negative DVT however did shows possible SVT, patient is already on Eliquis 3-Patient is afebrile and WBC has normalized , to continue with vancomycin pharmacy to dose cefepime and Flagyl and monitor clinical course closely Dictation was produced using [employer] dictation software. please excuse any grammatical, word or spelling errors. Time with Patient: Less than 30
[2022-12-20 13:24] LABS: African American GFR (CKD) >90 (>60 ml/min/1.73 sqM); Non-African American GFR(CKD) >90 (>60 ml/min/1.73 sqM)
--- NOTE | 2022-12-20 14:25 | P.PN ---
Subjective Progress Note Date: 12/20/22 Principal diagnosis: Acute pulmonary embolism This is a 57-year-old white male with history of multiple medical problems, patient is known to have history of peripheral vessel occlusive disease, and history of cellulitis he was admitted last to our institution on 10/17/2022, and he underwent the right second toe amputation on 10/19 patient had a right second toe osteomyelitis. He also had diabetic foot infection and a known history of type 2 diabetes as well as coronary artery disease and hypertension. Patient has been doing well except he was supposed to follow-up with Dr. Rodriguez after his amputation, today the patient was supposed to see Dr. Rodriguez for follow-up on his toe amputation, and when he presented to [facility] he was complaining of left-sided pleuritic chest pain for the last 2 days with some shortness of breath. CT angiogram was done and it showed significant pulmonary embolism involving the left lung mostly the left lower lobe and the patient had the right ventricular strain. He was seen by cardiology on consultation, patient was brought in to [facility], underwent EKOS thrombolysis, and he was transferred to the ICU, we were asked to see him on consultation. During my evaluation, the patient had no shortness of breath his chest pain is already improving slightly pleuritic in nature on the left side of the chest, no cough, no fever no chills no hemoptysis. No nausea no vomiting he did feel lightheaded prior to this procedure. Presently relatively asymptomatic. Patient was reevaluated today on 12/17/2022, remains in the ICU, continues to have left-sided pleuritic chest pain, patient felt much better when he was given Toradol, and I'm recommending another dose of Toradol for his left sided pleurit ic chest pain patient is on room air, his O2 sats is 93%. He did spike a temp last night of 102. Follow-up chest x-ray is pending this morning. WBC count today is 16.5 hemoglobin is 13.1, his fibrinogen is 746 patient continues to have a sheath in place, in the left groin, and his alteplase infusion is finished. Cardiology will likely transition the patient to [facility]. Reevaluated today on 12/19/2022, patient continues to have intermittent episodes of cough and left-sided vague pleuritic chest pain chest x-ray 2 days ago showed increase patchy infiltrate at the left lower lobe and trace of left pleural effusion felt to be related to his pulmonary embolism and likely infarcted left lower lobe. Will recommend follow-up chest x-ray in a.m. WBC count is 9.4 hemoglobin 11.8 basic metabolic profile is normal renal profile is normal C- reactive protein is elevated at almost 17 Reevaluated today on 12/20/2022, patient is doing well, afebrile, he has intermittent cough, some vague chest discomfort, no nausea no vomiting no abdominal pain. Labs are basically unremarkable. WBC count is 10.5 hemoglobin 13 electrolytes are normal renal profile is normal blood cultures have been negative in the last 72 hours Objective - Vital Signs Vital signs: Vital Signs Temp 98.1 F 12/20/22 11:29 Pulse 74 12/20/22 11:29 Resp 18 12/20/22 11:29 BP 129/73 12/20/22 11:29 Pulse Ox 97 12/20/22 11:29 FiO2 Intake & Output 12/19/22 12/20/22 12/20/22 18:59 06:59 18:59 Intake Total 2200 444 Output Total 5831 478 5622 Balance 650 -700 -806 Intake: IV 200 Cefepime 2 gm In Sodium 200 Chloride 0.9% 100 ml @ 25 mls/hr IVPB Q8HR FRANCY Rx# :[id number] Intake, IV Titration 800 Amount Sodium Chloride 0.9% 1, 300 000 ml @ 75 mls/hr IV . [id number] FRANCY Rx#:[id number] Vancomycin 2,000 mg In 500 Sodium Chloride 0.9% 500 ml 500 ml @ 167 mls/hr IVPB Q12H FRANCY Rx#: [id number] Oral 1200 444 Output: Urine 3696 691 6875 Other: Voiding Method Urinal Urinal - Exam Physical Exam are unrevealing 57-year-old white male in no distress, on room air O2 saturation 95% Head: Atraumatic normocephalic HEENT:[Neck is supple.] [No neck masses.] [No thyromegaly.] [No JVD.] Chest: [Fine crackles at the left base, no rhonchi no wheezes Cardiac Exam: [Normal S1 and S2, no S3 gallop, no murmur.] Abdomen: [Soft, nontender, no megaly, no rebound, no guarding, normal bowel sounds.] Extremities: [No clubbing, no edema, no cyanosis.] Those are covered with sterile dressing patient has good posterior tibial pulses bilaterally. Neurological Exam: [No focal neurologic deficit.] Psychiatric: Normal mood affect and normal mental status examination skin: No rashes - Labs CBC & Chem 7: 12/20/22 08:17 12/20/22 12:33 Labs: Abnormal Lab Results - Last 24 Hours (Table) 12/19/22 12/19/22 12/20/22 Range/Units 16:28 19:39 08:17 Eosinophils # 0.8 H (0-0.7) k/uL Creatinine (0.66-1.25) mg/dL Glucose (74-99) mg/dL POC Glucose (mg/dL) 175 H 198 H (70-110) mg/dL 12/20/22 12/20/22 12/20/22 Range/Units 08:17 11:36 12:33 Eosinophils # (0-0.7) k/uL Creatinine 0.62 L 0.65 L (0.66-1.25) mg/dL Glucose 155 H (74-99) mg/dL POC Glucose (mg/dL) 239 H (70-110) mg/dL Microbiology - Last 24 Hours (Table) 12/16/22 21:20 Blood Culture - Preliminary Blood Assessment and Plan Assessment: Impression: Acute pulmonary embolism Acute right ventricular strain, status post EKOS thrombolysis. Postoperative day # 5 Type 2 diabetes with diabetic foot ulcers History of osteomyelitis requiring toe amputation/right second toe Dyslipidemia Diabetic neuropathy History of coronary artery disease Recommendation: Continue eliquis Continue antibiotics as per infectious disease Chest x-ray reviewed seems to be reassuring and the abnormality in the left lower lobe is better, I felt that was related to pulmonary infarction Continue DuoNeb 4 times a day and when necessary We will continue to follow Time with Patient: Less than 30
[2022-12-20] MEDS: ALPRAZolam 0.25 MG TAB PO SCH ×2 (14:40→20:29)
[2022-12-20 16:44] LABS: Glucose,Whole Blood 158 mg/dL (70-110)
--- NOTE | 2022-12-20 19:42 | P.PN ---
Subjective Progress Note Date: 12/20/22 57-year-old gentleman with past medical history significant for peripheral vessel occlusive disease,type 2 diabetes as well as coronary artery disease, hypertension who was transferred from [facility] after being diagnosed with acute PE for EKOS. Patient recently was admitted to [facility] on 10/17/2022, and he underwent the right second toe amputation on 10/19 for right second toe osteomyelitis. Patient was being seen by ID for IV antibiotics and by vascular surgery for wound care. Patient went to [facility] and therefore he was complaining of left-sided chest pain. Patient was immediately sent for computed tomography scan of chest. * CT angiogram was done and it showed significant pulmonary embolism involving the left lung mostly the left lower lobe and the patient had the right ventricular strain * Patient was transferred to [facility] for EKOS admitted to ICU 12/20/2022 -- patient is seen and evaluated in room at bedside; reports to be doing well, afebrile, he has intermittent cough, some vague chest discomfort, no nausea no vomiting no abdominal pain. -- WBC count is 10.5 hemoglobin 13 electrolytes are normal renal profile is normal blood cultures have been negative in the last 72 hours Repeat chest x-ray this morning reveals persistent left lower lobe infiltrate, slightly improved from prior study; likely related to pulmonary infarction per pulmonary; continue with current anticoagulation ---right second toe amputation site wound infection with osteomyelitis that was diagnosed at [facility] on 11/26/2022, wound culture at the time did grew MRSA gram-negative to be the likely pathogen as the patient currently was seem to be drying out without any drainage Doppler ultrasound of the left upper extremity was negative DVT however did shows possible SVT, patient is already on Eliquis -Patient is afebrile and WBC has normalized , to continue with vancomycin pharmacy to dose cefepime and Flagyl and monitor clinical course closely Objective - Vital Signs Vital signs: Vital Signs Temp 98.1 F 12/20/22 11:29 Pulse 74 12/20/22 11:29 Resp 18 12/20/22 11:29 BP 129/73 12/20/22 11:29 Pulse Ox 97 12/20/22 11:29 FiO2 Intake & Output 12/19/22 12/20/22 12/20/22 18:59 06:59 18:59 Intake Total 2200 Output Total 3958 186 5290 Balance 650 -700 -1250 Intake: IV 200 Cefepime 2 gm In Sodium 200 Chloride 0.9% 100 ml @ 25 mls/hr IVPB Q8HR FRANCY Rx# :[id number] Intake, IV Titration 800 Amount Sodium Chloride 0.9% 1, 300 000 ml @ 75 mls/hr IV . [id number] FRANCY Rx#:[id number] Vancomycin 2,000 mg In 500 Sodium Chloride 0.9% 500 ml 500 ml @ 167 mls/hr IVPB Q12H FRANCY Rx#: [id number] Oral 1200 Output: Urine 4834 741 8396 Other: Voiding Method Urinal Urinal - Exam GENERAL: The patient is alert and oriented x3, not in any acute distress. HEENT: Pupils are round and equally reacting to light. EOMI. CARDIOVASCULAR: S1 and S2 present. No murmurs, rubs, or gallops. PULMONARY: Chest is clear to auscultation, no wheezing or crackles. ABDOMEN: Soft, nontender, nondistended, normoactive bowel sounds. EXTREMITIES: Right foot second toe amputation seen NEUROLOGICAL: Gross neurological examination did not reveal any focal deficits. - Labs CBC & Chem 7: 12/20/22 08:17 12/20/22 12:33 Labs: Abnormal Lab Results - Last 24 Hours (Table) 12/19/22 12/19/22 12/20/22 Range/Units 16:28 19:39 08:17 Eosinophils # 0.8 H (0-0.7) k/uL Creatinine (0.66-1.25) mg/dL Glucose (74-99) mg/dL POC Glucose (mg/dL) 175 H 198 H (70-110) mg/dL 12/20/22 12/20/22 Range/Units 08:17 11:36 Eosinophils # (0-0.7) k/uL Creatinine 0.62 L (0.66-1.25) mg/dL Glucose 155 H (74-99) mg/dL POC Glucose (mg/dL) 239 H (70-110) mg/dL Microbiology - Last 24 Hours (Table) 12/16/22 21:20 Blood Culture - Preliminary Blood Assessment and Plan Assessment: * Acute pulmonary embolism status post a course * Osteomyellitus status post for amputation right second toe * Diabetic foot ulcer * Sepsis secondary to diabetic foot infection * Dyslipidemia * Diabetic neuropathy * History of coronary artery disease * In regards to pulmonary embolism patient seen by interventional cardiology, pulmonary medicine. Status post EKOS. On Eliquis now * In regards to osteomyelitis continue cefepime, vancomycin, Flagyl infectious disease following * In regards to diabetic foot ulcer continue with wound care * Regards to sepsis, follow-up on blood cultures, continue with fluid hydration * In regards to coronary artery disease this is a chronic problem stable continue home medications * CODE STATUS is full code
[2022-12-20 20:05] LABS: Glucose,Whole Blood 217 mg/dL (70-110)
[2022-12-20] MEDS: INSULIN DETEMIR (LEVEMIR) 100 UNIT/ML SYR SQ SCH (20:28)
[2022-12-20] MEDS: MELATONIN 3 MG TABLET PO SCH (20:30)
[2022-12-21] MEDS: CEFEPIME 2 GM in SODIUM CHLORIDE 0.9% 100 ML IVPB SCH ×4 (00:26→23:33)
[2022-12-21] MEDS: VANCOMYCIN 2,000 MG in SODIUM CHLORIDE 0.9% 500 ML 500 ML IVPB SCH ×2 (03:05→14:00)
[2022-12-21] MEDS: HYDROmorphone 0.5 MG/0.5 ML SYRINGE IVP PRN ×5 (03:10→22:01)
[2022-12-21 06:26] LABS: Glucose,Whole Blood 167 mg/dL (70-110)
[2022-12-21] MEDS: INSULIN ASPART (NovoLOG) 100 UNIT/ML VIAL SQ SCH ×4 (06:43→21:52)
[2022-12-21] MEDS: PANTOPRAZOLE 40 MG TABLET PO SCH (06:43)
[2022-12-21] MEDS: LISINOPRIL-HCTZ 20-12.5 MG 1 EACH TAB PO SCH (08:34)
[2022-12-21] MEDS: ALPRAZolam 0.25 MG TAB PO SCH ×3 (08:34→21:54)
[2022-12-21] MEDS: metroNIDAZOLE 500 MG TAB PO SCH ×3 (08:35→21:52)
[2022-12-21] MEDS: PREGABALIN 50 MG CAP PO SCH ×2 (08:35→21:53)
[2022-12-21] MEDS: SODIUM CHLORIDE 0.9% 1,000 ML IV SCH ×2 (08:37→21:54)
[2022-12-21] MEDS: Apixaban Initiation Dose--VTE 5 MG TAB PO SCH ×2 (08:42→21:52)
[2022-12-21 09:27] LABS: Basophils % (A) 0 %; Eosinophils # (A) 0.8 k/uL (0-0.7); Eosinophils % (A) 8 %; HGB 13.1 gm/dL (13.0-17.5); Lymphocytes # (A) 1.6 k/uL (1.0-4.8); Lymphocytes % (A) 16 %; MCH 30.4 pg (25.0-35.0); MCHC 33.5 g/dL (31.0-37.0); MCV 90.5 fL (80.0-100.0); Monocytes # (A) 0.7 k/uL (0-1.0); Monocytes % (A) 7 %; Neutrophils # (A) 6.4 k/uL (1.3-7.7); Neutrophils % (A) 66 %; Platelet Count 470 k/uL (150-450); RBC 4.31 m/uL (4.30-5.90); RDW 13.7 % (11.5-15.5); WBC 9.7 k/uL (3.8-10.6)
[2022-12-21 09:43] LABS: African American GFR (CKD) >90 (>60 ml/min/1.73 sqM); Anion Gap 9 mmol/L; Blood Urea Nitrogen 16 mg/dL (9-20); Calcium 8.9 mg/dL (8.4-10.2); Carbon Dioxide 24 mmol/L (22-30); Chloride 104 mmol/L (98-107); Glucose 159 mg/dL (74-99); Non-African American GFR(CKD) >90 (>60 ml/min/1.73 sqM); Potassium 4.9 mmol/L (3.5-5.1); Sodium 137 mmol/L (137-145)
[2022-12-21 11:39] LABS: Glucose,Whole Blood 134 mg/dL (70-110)
--- NOTE | 2022-12-21 15:23 | P.PN ---
Subjective Progress Note Date: 12/21/22 This is a 57-year-old white male with history of multiple medical problems, patient is known to have history of peripheral vessel occlusive disease, and history of cellulitis he was admitted last to our institution on 10/17/2022, and he underwent the right second toe amputation on 10/19 patient had a right second toe osteomyelitis. He also had diabetic foot infection and a known history of type 2 diabetes as well as coronary artery disease and hypertension. Patient has been doing well except he was supposed to follow-up with Dr. Rodriguez after his amputation, today the patient was supposed to see Dr. Rodriguez for follow-up on his toe amputation, and when he presented to [facility] he was complaining of left-sided pleuritic chest pain for the last 2 days with some shortness of breath. CT angiogram was done and it showed significant pulmonary embolism involving the left lung mostly the left lower lobe and the patient had the right ventricular strain. He was seen by cardiology on consultation, patient was brought in to [facility], underwent EKOS thrombolysis, and he was transferred to the ICU, we were asked to see him on consultation. During my evaluation, the patient had no shortness of breath his chest pain is already improving slightly pleuritic in nature on the left side of the chest, no cough, no fever no chills no hemoptysis. No nausea no vomiting he did feel lightheaded prior to this procedure. Presently relatively asymptomatic. Patient was reevaluated today on 12/17/2022, remains in the ICU, continues to have left-sided pleuritic chest pain, patient felt much better when he was given Toradol, and I'm recommending another dose of Toradol for his left sided pleuritic chest pain patient is on room air, his O2 sats is 93%. He did spike a temp last night of 102. Follow-up chest x-ray is pending this morning. WBC count today is 16.5 hemoglobin is 13.1, his fibrinogen is 746 patient continues to have a sheath in place, in the left groin, and his alteplase infusion is finished. Cardiology will likely transition the patient to [facility]. The patient is seen today 12/18/2022 in follow-up on the regular medical floor. His sheaths were removed yesterday. He is sitting up in bed. Awake and alert in no acute distress. He is still having some left-sided pleuritic chest pain. Maintaining good O2 saturations in the 90s on room air. He's afebrile. Hemodynamically stable. White count 12.5. Hemoglobin 12.1. Platelets 288. Sodium 132. Potassium 4.3. Bicarb 20. BUN 21. Creatinine 0.77. Glucose 134. He is currently on vancomycin, Flagyl and cefepime. Anticoagulated with Eliquis. Blood cultures reveal no growth. His x-ray reveals patchy infiltrate in the left lower lobe. Trace left effusion. The patient is seen today 12/21/2022 in follow-up on the selective care unit. He is currently resting comfortably in bed. Awake and alert in no acute distress. Maintaining good O2 saturations on room air. He's been afebrile. Hemodynamically stable. His left-sided pleuritic chest pain is improving. White count 9.7. Hemoglobin 13.1. Platelets 470. Sodium 137. Potassium 4.9. Bicarb 24. BUN 16. Creatinine 0.72. Glucose 159. He is anticoagulated with Eliquis. Remains on vancomycin and cefepime. Objective - Vital Signs Vital signs: Vital Signs Temp 98 F 12/21/22 12:00 Pulse 76 12/21/22 12:00 Resp 18 12/21/22 12:00 BP 156/77 12/21/22 12:00 Pulse Ox 96 12/21/22 12:00 FiO2 Intake & Output 12/20/22 12/21/22 12/21/22 18:59 06:59 18:59 Intake Total 444 236 Output Total 1250 650 Balance -806 -650 236 Intake: Oral 444 236 Output: Urine 1250 650 Other: Voiding Method Toilet Urinal # Voids 1 - Exam GENERAL EXAM: Alert, oriented 3, 57-year-old male patient, on room air, in no apparent distress. HEAD: Normocephalic. EYES: Normal reaction of pupils, equal size. NOSE: Clear with pink turbinates. THROAT: No erythema or exudates. NECK: No masses, no JVD. CHEST: No chest wall deformity. LUNGS: Equal air entry with no crackles, wheeze, rhonchi or dullness. CVS: S1 and S2 normal with no audible murmur, regular rhythm. ABDOMEN: No hepatosplenomegaly, normal bowel sounds, no guarding or rigidity. SPINE: No scoliosis or deformity SKIN: No rashes CENTRAL NERVOUS SYSTEM: No focal deficits, tone is normal in all 4 extremities. EXTREMITIES: PICC line to the right upper extremity. Right second toe amputation, dressings to the bilateral feet. There is no peripheral edema. No clubbing, no cyanosis. Peripheral pulses are intact. - Labs CBC & Chem 7: 12/21/22 08:43 12/21/22 08:43 Labs: Abnormal Lab Results - Last 24 Hours (Table) 12/20/22 12/20/22 12/21/22 Range/Units 16:42 20:02 06:24 Plt Count (150-450) k/uL Eosinophils # (0-0.7) k/uL Glucose (74-99) mg/dL POC Glucose (mg/dL) 158 H 217 H 167 H (70-110) mg/dL 12/21/22 12/21/22 12/21/22 Range/Units 08:43 08:43 11:37 Plt Count 470 H (150-450) k/uL Eosinophils # 0.8 H (0-0.7) k/uL Glucose 159 H (74-99) mg/dL POC Glucose (mg/dL) 134 H (70-110) mg/dL Assessment and Plan Assessment: Acute pulmonary embolism Left sided pleuritic chest wall pain secondary to above, improved Acute right ventricular strain, status post EKOS thrombolysis Type 2 diabetes with diabetic foot ulcers History of osteomyelitis requiring toe amputation/right second toe Dyslipidemia Diabetic neuropathy History of coronary artery disease Plan: The patient was seen and evaluated Labs and medications reviewed Stable and on room air Initiated on Eliquis Antibiotics per ID service We will continue to follow I have personally seen and examined the patient, performed the documentation and the assessment and plan as written. Number of minutes spent on the visit: 10.
--- NOTE | 2022-12-21 15:36 | P.PN ---
Subjective Progress Note Date: 12/21/22 57-year-old gentleman with past medical history significant for peripheral vessel occlusive disease,type 2 diabetes as well as coronary artery disease, hypertension who was transferred from [facility] after being diagnosed with acute PE for EKOS. Patient recently was admitted to [facility] on 10/17/2022, and he underwent the right second toe amputation on 10/19 for right second toe osteomyelitis. Patient was being seen by ID for IV antibiotics and by vascular surgery for wound care. Patient went to [facility] and therefore he was complaining of left-sided chest pain. Patient was immediately sent for computed tomography scan of chest. * CT angiogram was done and it showed significant pulmonary embolism involving the left lung mostly the left lower lobe and the patient had the right ventricular strain * Patient was transferred to [facility] for EKOS admitted to ICU 12/20/2022 -- patient is seen and evaluated in room at bedside; reports to be doing well, afebrile, he has intermittent cough, some vague chest discomfort, no nausea no vomiting no abdominal pain. -- WBC count is 10.5 hemoglobin 13 electrolytes are normal renal profile is normal blood cultures have been negative in the last 72 hours Repeat chest x-ray this morning reveals persistent left lower lobe infiltrate, slightly improved from prior study; likely related to pulmonary infarction per pulmonary; continue with current anticoagulation ---right second toe amputation site wound infection with osteomyelitis that was diagnosed at [facility] on 11/26/2022, wound culture at the time did grew MRSA gram-negative to be the likely pathogen as the patient currently was seem to be drying out without any drainage Doppler ultrasound of the left upper extremity was negative DVT however did shows possible SVT, patient is already on Eliquis -Patient is afebrile and WBC has normalized , to continue with vancomycin pharmacy to dose cefepime and Flagyl and monitor clinical course closely 12/21/2022 Patient is seen and evaluated in follow-up;. resting comfortably in bed. Awake and alert in no acute distress. Maintaining good O2 saturations on room air. He's been afebrile. Hemodynamically stable. His left-sided pleuritic chest pain is improving. -- White count 9.7. Hemoglobin 13.1. Platelets 470. Sodium 137. Potassium 4. 9. Bicarb 24. BUN 16. Creatinine 0.72. Glucose 159. - He is anticoagulated with Eliquis. Remains on vancomycin and cefepime ID on board for right second toe amputation site infection/osteomyelitis and recommending to continue with IV vancomycin and cefepime along with Flagyl; further recommendations pending clinical course Objective - Vital Signs Vital signs: Vital Signs Temp 98 F 12/21/22 12:00 Pulse 76 12/21/22 12:00 Resp 18 12/21/22 12:00 BP 156/77 12/21/22 12:00 Pulse Ox 96 12/21/22 12:00 FiO2 Intake & Output 12/20/22 12/21/22 12/21/22 18:59 06:59 18:59 Intake Total 444 236 Output Total 1250 650 Balance -806 -650 236 Intake: Oral 444 236 Output: Urine 1250 650 Other: Voiding Method Toilet Urinal # Voids 1 - Exam GENERAL: The patient is alert and oriented x3, not in any acute distress. HEENT: Pupils are round and equally reacting to light. EOMI. CARDIOVASCULAR: S1 and S2 present. No murmurs, rubs, or gallops. PULMONARY: Chest is clear to auscultation, no wheezing or crackles. ABDOMEN: Soft, nontender, nondistended, normoactive bowel sounds. EXTREMITIES: Right foot second toe amputation seen NEUROLOGICAL: Gross neurological examination did not reveal any focal deficits. - Labs CBC & Chem 7: 12/21/22 08:43 12/21/22 08:43 Labs: Abnormal Lab Results - Last 24 Hours (Table) 12/20/22 12/20/22 12/20/22 Range/Units 12:33 16:42 20:02 Plt Count (150-450) k/uL Eosinophils # (0-0.7) k/uL Creatinine 0.65 L (0.66-1.25) mg/dL Glucose (74-99) mg/dL POC Glucose (mg/dL) 158 H 217 H (70-110) mg/dL 12/21/22 12/21/22 12/21/22 Range/Units 06:24 08:43 08:43 Plt Count 470 H (150-450) k/uL Eosinophils # 0.8 H (0-0.7) k/uL Creatinine (0.66-1.25) mg/dL Glucose 159 H (74-99) mg/dL POC Glucose (mg/dL) 167 H (70-110) mg/dL 12/21/22 Range/Units 11:37 Plt Count (150-450) k/uL Eosinophils # (0-0.7) k/uL Creatinine (0.66-1.25) mg/dL Glucose (74-99) mg/dL POC Glucose (mg/dL) 134 H (70-110) mg/dL Assessment and Plan Assessment: * Acute pulmonary embolism status post a course * Osteomyellitus status post for amputation right second toe * Diabetic foot ulcer * Sepsis secondary to diabetic foot infection * Dyslipidemia * Diabetic neuropathy * History of coronary artery disease * In regards to pulmonary embolism patient seen by interventional cardiology, pulmonary medicine. Status post EKOS. On Eliquis now * In regards to osteomyelitis continue cefepime, vancomycin, Flagyl infectious disease following * In regards to diabetic foot ulcer continue with wound care * Regards to sepsis, follow-up on blood cultures, continue with fluid hydration * In regards to coronary artery disease this is a chronic problem stable continue home medications * CODE STATUS is full code
[2022-12-21 16:41] LABS: Glucose,Whole Blood 174 mg/dL (70-110)
--- NOTE | 2022-12-21 18:45 | P.PN ---
Subjective Progress Note Date: 12/21/22 Principal diagnosis: Right diabetic foot infection/right foot osteomyelitis Patient is a 57-year-old male with a past medical history significant for type 2 diabetes mellitus hypertension peripheral arterial disease history of right big toe amputation secondary to infection and recently did have a right second toe amputation done at [facility] on 10/17/2022, patient subsequently did have reopening of the wound to the right second toe amputation site with some purulent drainage and the patient was advised by his surgeon to go to [facility], where the patient was admitted on 11/26/2022 patient did have local wound culture done which grew MRSA and gram-negative patient did get a PICC line and was advised IV antibiotic therapy, with a readmission to the hospital with left-sided chest pain has been diagnosed with extensive left-sided PE with the right heart strain and the patient is status post EKOS procedure. On today's evaluation that is 12/21/2022, the patient denies any fever or chills , the patient is breathing comfortably without need for supplemental oxygen, the patient denies worsening chest pain or worsening cough/sputum production, patient denies nausea/vomiting , abdominal pain and no diarrhea reported Patient white count normalized to 9.7, creatinine 0.72 blood cultures negative Objective - Vital Signs Vital signs: Vital Signs Temp 97.9 F 12/21/22 16:00 Pulse 71 12/21/22 16:00 Resp 16 12/21/22 16:00 BP 134/76 12/21/22 16:00 Pulse Ox 97 12/21/22 16:00 FiO2 Intake & Output 12/20/22 12/21/22 12/21/22 18:59 06:59 18:59 Intake Total 444 458 Output Total 1250 650 Balance -806 -435 458 Intake: Oral 444 458 Output: Urine 1250 650 Other: Voiding Method Toilet Urinal # Voids 1 - Exam GENERAL DESCRIPTION: Middle-aged male lying in bed in no distress RESPIRATORY SYSTEM: Unlabored breathing , decreased breath sounds at bases HEART: S1 S2 regular rate and rhythm , ABDOMEN: Soft , no tenderness EXTREMITIES: Right foot is currently dressed - Labs CBC & Chem 7: 12/21/22 08:43 12/21/22 08:43 Labs: Abnormal Lab Results - Last 24 Hours (Table) 12/20/22 12/21/2212/21/23 Range/Units 20:02 06:24 08:43 Plt Count 470 H (150-450) k/uL Eosinophils # 0.8 H (0-0.7) k/uL Glucose (74-99) mg/dL POC Glucose (mg/dL) 217 H 167 H (70-110) mg/dL 12/21/22 12/21/22 12/21/22 Range/Units 08:43 11:37 16:40 Plt Count (150-450) k/uL Eosinophils # (0-0.7) k/uL Glucose 159 H (74-99) mg/dL POC Glucose (mg/dL) 134 H 174 H (70-110) mg/dL Assessment and Plan (1) Diabetic foot ulcer Current Visit: No Status: Acute Code(s): E11.621 - TYPE 2 DIABETES MELLITUS WITH FOOT ULCER; L97.509 - NON-PRESSURE CHRONIC ULCER OTH PRT UNSP FOOT W UNSP SEVERITY SNOMED Code(s): 515959706 (2) Osteomyelitis of toe of right foot Current Visit: No Status: Acute Code(s): M86.9 - OSTEOMYELITIS, UNSPECIFIED SNOMED Code(s): 234185928 Plan: 1patient presented to the hospital with sepsis in this patient with a fever tachycardia elevated white count source likely right second toe amputation site wound infection with osteomyelitis that was diagnosed at [facility] on 11/26/2022, wound culture at the time did grew MRSA gram-negative to be the likely pathogen as the patient currently was seem to be drying out without any drainage 2 Doppler ultrasound of the left upper extremity was negative DVT however did s hows possible SVT, patient is already on Eliquis 3-Patient is afebrile and WBC has normalized ,Pt to continue with vancomycin pharmacy to dose cefepime and Flagyl to finish his course of therapy Dictation was produced using [employer] dictation software. please excuse any grammatical, word or spelling errors. Time with Patient: Less than 30
[2022-12-21 20:02] LABS: Glucose,Whole Blood 233 mg/dL (70-110)
[2022-12-21] MEDS: MELATONIN 3 MG TABLET PO SCH (21:52)
[2022-12-21] MEDS: INSULIN DETEMIR (LEVEMIR) 100 UNIT/ML SYR SQ SCH (21:56)
[2022-12-22] MEDS: VANCOMYCIN 2,000 MG in SODIUM CHLORIDE 0.9% 500 ML 500 ML IVPB SCH ×2 (02:17→14:51)
[2022-12-22] MEDS: HYDROmorphone 0.5 MG/0.5 ML SYRINGE IVP PRN ×5 (04:59→21:42)
[2022-12-22 05:34] LABS: Glucose,Whole Blood 245 mg/dL (70-110)
[2022-12-22] MEDS: INSULIN ASPART (NovoLOG) 100 UNIT/ML VIAL SQ SCH ×4 (06:51→21:31)
[2022-12-22] MEDS: PANTOPRAZOLE 40 MG TABLET PO SCH (06:51)
[2022-12-22 08:59] VITALS: BMI 29.7
[2022-12-22] MEDS: metroNIDAZOLE 500 MG TAB PO SCH ×3 (10:09→21:30)
[2022-12-22] MEDS: LISINOPRIL-HCTZ 20-12.5 MG 1 EACH TAB PO SCH (10:09)
[2022-12-22] MEDS: PREGABALIN 50 MG CAP PO SCH ×2 (10:09→21:30)
[2022-12-22] MEDS: ALPRAZolam 0.25 MG TAB PO SCH ×3 (10:09→21:30)
[2022-12-22] MEDS: CEFEPIME 2 GM in SODIUM CHLORIDE 0.9% 100 ML IVPB SCH ×2 (10:09→17:00)
[2022-12-22] MEDS: SODIUM CHLORIDE 0.9% 1,000 ML IV SCH (10:10)
[2022-12-22 10:18] LABS: Basophils % (A) 0 %; Eosinophils # (A) 0.7 k/uL (0-0.7); Eosinophils % (A) 7 %; HCT 36.8 % (39.0-53.0); HGB 12.2 gm/dL (13.0-17.5); Lymphocytes # (A) 1.4 k/uL (1.0-4.8); Lymphocytes % (A) 13 %; MCV 90.9 fL (80.0-100.0); Mean Platelet Volume 7.5; Monocytes # (A) 0.9 k/uL (0-1.0); Monocytes % (A) 8 %; Neutrophils # (A) 7.3 k/uL (1.3-7.7); Neutrophils % (A) 69 %; Platelet Count 467 k/uL (150-450); RBC 4.05 m/uL (4.30-5.90); RDW 14.1 % (11.5-15.5); WBC 10.6 k/uL (3.8-10.6)
[2022-12-22] MEDS: Apixaban Initiation Dose--VTE 5 MG TAB PO SCH ×2 (10:30→21:30)
[2022-12-22 10:36] LABS: African American GFR (CKD) >90 (>60 ml/min/1.73 sqM); Anion Gap 7 mmol/L; Blood Urea Nitrogen 20 mg/dL (9-20); Calcium 8.8 mg/dL (8.4-10.2); Carbon Dioxide 23 mmol/L (22-30); Chloride 106 mmol/L (98-107); Glucose 219 mg/dL (74-99); Non-African American GFR(CKD) >90 (>60 ml/min/1.73 sqM); Potassium 4.7 mmol/L (3.5-5.1); Sodium 136 mmol/L (137-145)
[2022-12-22 12:00] LABS: Glucose,Whole Blood 231 mg/dL (70-110)
[2022-12-22] MEDS: IPRATROPIUM-ALBUTEROL 3 ML NEB INHALATION SCH ×3 (12:03→20:30)
[2022-12-22] MEDS ORDERED: VANCOMYCIN TROUGH DUE 1 EACH MISC MISCELLANE ONE (13:00)
--- NOTE | 2022-12-22 15:35 | P.PN ---
Subjective Progress Note Date: 12/22/22 Principal diagnosis: Pulmonary embolism. This is a 57-year-old white male with history of multiple medical problems, patient is known to have history of peripheral vessel occlusive disease, and history of cellulitis he was admitted last to our institution on 10/17/2022, and he underwent the right second toe amputation on 10/19 patient had a right second toe osteomyelitis. He also had diabetic foot infection and a known history of type 2 diabetes as well as coronary artery disease and hypertension. Patient has been doing well except he was supposed to follow-up with Dr. Rodriguez after his amputation, today the patient was supposed to see Dr. Rodriguez for follow-up on his toe amputation, and when he presented to [facility] he was complaining of left-sided pleuritic chest pain for the last 2 days with some shortness of breath. CT angiogram was done and it showed significant pulmonary embolism involving the left lung mostly the left lower lobe and the patient had the right ventricular strain. He was seen by cardiology on consultation, patient was brought in to [facility], underwent EKOS thrombolysis, and he was transferred to the ICU, we were asked to see him on consultation. During my evaluation, the patient had no shortness of breath his chest pain is already improving slightly pleuritic in nature on the left side of the chest, no cough, no fever no chills no hemoptysis. No nausea no vomiting he did feel lightheaded prior to this procedure. Presently relatively asymptomatic. Patient was reevaluated today on 12/17/2022, remains in the ICU, continues to have left-sided pleuritic chest pain, patient felt much better when he was given Toradol, and I'm recommending another dose of Toradol for his left sided pleuritic chest pain patient is on room air, his O2 sats is 93%. He did spike a temp last night of 102. Follow-up chest x-ray is pending this morning. WBC count today is 16.5 hemoglobin is 13.1, his fibrinogen is 746 patient continues to have a sheath in place, in the left groin, and his alteplase infusion is finished. Cardiology will likely transition the patient to [facility]. The patient is seen today 12/18/2022 in follow-up on the regular medical floor. His sheaths were removed yesterday. He is sitting up in bed. Awake and alert in no acute distress. He is still having some left-sided pleuritic chest pain. Maintaining good O2 saturations in the 90s on room air. He's afebrile. Hemodynamically stable. White count 12.5. Hemoglobin 12.1. Platelets 288. Sodium 132. Potassium 4.3. Bicarb 20. BUN 21. Creatinine 0.77. Glucose 134. He is currently on vancomycin, Flagyl and cefepime. Anticoagulated with Eliquis. Blood cultures reveal no growth. His x-ray reveals patchy infiltrate in the left lower lobe. Trace left effusion. The patient is seen today 12/21/2022 in follow-up on the selective care unit. He is currently resting comfortably in bed. Awake and alert in no acute di stress. Maintaining good O2 saturations on room air. He's been afebrile. Hemodynamically stable. His left-sided pleuritic chest pain is improving. White count 9.7. Hemoglobin 13.1. Platelets 470. Sodium 137. Potassium 4.9. Bicarb 24. BUN 16. Creatinine 0.72. Glucose 159. He is anticoagulated with Eliquis. Remains on vancomycin and cefepime. Progress note dated 12/22/2022. The patient is seen today in room 378. The patient underwent EKOS 4 acute pulmonary embolism. Currently, the patient is on room air. He is getting saline at 75 mL an hour. The patient also continues on Flagyl, vancomycin, and cefepime. The patient is having some difficulty with breathing, and is having some expiratory wheezes, so updrafts her increased to 4 times a day and when necessary. White count 10.6, hemoglobin 12.2, hematocrit 36.8, with a platelet count of 467,000. Sodium 136, potassium 4.7, chlorides 106, CO2 23, BUN 20, and creatinine 0.83. Objective - Vital Signs Vital signs: Vital Signs Temp 98.2 F 12/22/22 11:57 Pulse 80 12/22/22 12:12 Resp 18 12/22/22 11:57 BP 132/69 12/22/22 11:57 Pulse Ox 97 12/22/22 11:57 FiO2 Intake & Output 12/21/22 12/22/22 12/22/22 18:59 06:59 18:59 Intake Total 458 520 Output Total 750 1500 500 Balance -292 -1500 20 Weight 86 kg Intake: IV 40 Invasive Line 2 30 Invasive Line 4 10 Oral 458 480 Output: Urine 750 1500 500 Other: Voiding Method Toilet Toilet Urinal Urinal - Exam No acute distress, oriented 3. HEENT examination is grossly unremarkable. Neck supple. Full range of motion. No adenopathy thyromegaly or neck vein distention. Cardiovascular examination reveals regular rhythm rate. S1-S2 normal. No S3 or S4. No discernible murmur noted. Heart rate 80 bpm. Lungs reveal expiratory wheezes and rhonchi. Breath sounds equal bilaterally. He coughs on deep inspiration. No crackles. Room air saturation is 97%. Abdomen soft bowel sounds are heard. No masses or tenderness. Extremities are intact. No cyanosis clubbing or edema. Skin is without rash or lesion. Neurologic examination is brief but nonfocal. - Labs CBC & Chem 7: 12/22/22 09:04 12/22/22 09:04 Labs: Abnormal Lab Results - Last 24 Hours (Table) 12/21/22 12/21/22 12/22/22 Range/Units 16:40 20:00 05:32 RBC (4.30-5.90) m/uL Hgb (13.0-17.5) gm/dL Hct (39.0-53.0) % Plt Count (150-450) k/uL Sodium (137-145) mmol/L Glucose (74-99) mg/dL POC Glucose (mg/dL) 174 H 233 H 245 H (70-110) mg/dL 12/22/22 12/22/22 12/22/22 Range/Units 09:04 09:04 11:59 RBC 4.05 L (4.30-5.90) m/uL Hgb 12.2 L (13.0-17.5) gm/dL Hct 36.8 L (39.0-53.0) % Plt Count 467 H (150-450) k/uL Sodium 136 L (137-145) mmol/L Glucose 219 H (74-99) mg/dL POC Glucose (mg/dL) 231 H (70-110) mg/dL Microbiology - Last 24 Hours (Table) 12/16/22 21:20 Blood Culture - Final Blood Assessment and Plan Assessment: Acute pulmonary embolism. Left sided pleuritic chest wall pain secondary to above, improved. Acute right ventricular strain, status post EKOS thrombolysis. Type 2 diabetes with diabetic foot ulcers. History of osteomyelitis requiring toe amputation/right second toe. Dyslipidemia. Diabetic neuropathy. History of coronary artery disease. Plan: Plan dated 12/22/2022. The patient was started on a factor X a inhibitor. He continues on Flagyl, vancomycin, and cefepime, for his infections, and osteomyelitis. Labs, x-rays, and medications are reviewed. We will continue to follow the patient make recommendations along the way. We added updrafts, 4 times a day and when necessary. No additional recommendations are made at this time. Time with Patient: Less than 30
[2022-12-22 16:52] LABS: Glucose,Whole Blood 209 mg/dL (70-110)
[2022-12-22] MEDS: VANCOMYCIN 1,750 MG in SODIUM CHLORIDE 0.9% 500 ML 500 ML IVPB SCH (17:30)
[2022-12-22 20:39] LABS: Glucose,Whole Blood 210 mg/dL (70-110)
[2022-12-22] MEDS: INSULIN DETEMIR (LEVEMIR) 100 UNIT/ML SYR SQ SCH (21:30)
[2022-12-22] MEDS: MELATONIN 3 MG TABLET PO SCH (21:30)
[2022-12-23] MEDS: CEFEPIME 2 GM in SODIUM CHLORIDE 0.9% 100 ML IVPB SCH ×4 (00:25→23:57)
[2022-12-23] MEDS: SODIUM CHLORIDE 0.9% 1,000 ML IV SCH (02:15)
[2022-12-23] MEDS: HYDROmorphone 0.5 MG/0.5 ML SYRINGE IVP PRN (02:55)
[2022-12-23] MEDS: VANCOMYCIN 1,750 MG in SODIUM CHLORIDE 0.9% 500 ML 500 ML IVPB SCH ×2 (03:35→15:25)
[2022-12-23] MEDS ORDERED: HYDROmorphone 0.5 MG/0.5 ML SYRINGE IVP PRN (04:47)
--- NOTE | 2022-12-23 04:58 | P.PN ---
Subjective Progress Note Date: 12/22/22 57-year-old gentleman with past medical history significant for peripheral vessel occlusive disease,type 2 diabetes as well as coronary artery disease, hypertension who was transferred from [facility] after being diagnosed with acute PE for EKOS. Patient recently was admitted to [facility] on 10/17/2022, and he underwent the right second toe amputation on 10/19 for right second toe osteomyelitis. Patient was being seen by ID for IV antibiotics and by vascular surgery for wound care. Patient went to [facility] and therefore he was complaining of left-sided chest pain. Patient was immediately sent for computed tomography scan of chest. * CT angiogram was done and it showed significant pulmonary embolism involving the left lung mostly the left lower lobe and the patient had the right ventricular strain * Patient was transferred to [facility] for EKOS admitted to ICU 12/20/2022 -- patient is seen and evaluated in room at bedside; reports to be doing well, afebrile, he has intermittent cough, some vague chest discomfort, no nausea no vomiting no abdominal pain. -- WBC count is 10.5 hemoglobin 13 electrolytes are normal renal profile is normal blood cultures have been negative in the last 72 hours Repeat chest x-ray this morning reveals persistent left lower lobe infiltrate, slightly improved from prior study; likely related to pulmonary infarction per pulmonary; continue with current anticoagulation ---right second toe amputation site wound infection with osteomyelitis that was diagnosed at [facility] on 11/26/2022, wound culture at the time did grew MRSA gram-negative to be the likely pathogen as the patient currently was seem to be drying out without any drainage Doppler ultrasound of the left upper extremity was negative DVT however did shows possible SVT, patient is already on Eliquis -Patient is afebrile and WBC has normalized , to continue with vancomycin pharmacy to dose cefepime and Flagyl and monitor clinical course closely 12/21/2022 Patient is seen and evaluated in follow-up;. resting comfortably in bed. Awake and alert in no acute distress. Maintaining good O2 saturations on room air. He's been afebrile. Hemodynamically stable. His left-sided pleuritic chest pain is improving. -- White count 9.7. Hemoglobin 13.1. Platelets 470. Sodium 137. Potassium 4.9. Bicarb 24. BUN 16. Creatinine 0.72. Glucose 159. - He is anticoagulated with Eliquis. Remains on vancomycin and cefepime ID on board for right second toe amputation site infection/osteomyelitis and recommending to continue with IV vancomycin and cefepime along with Flagyl; further recommendations pending clinical course 12/22/2022 Patient is seen in follow-up today with multiple medical consultations following including pulmonary, infectious disease. Patient reports pain with inspiration and some shortness of breath although his breathing and maintaining oxygen saturations over 92% room air. Patient does have pain medications and not utilizing any oral and has been requesting IV pain medications. Will adjust medications and encouraged oral patient will be going to ECF and will not be continued on IV pain medications. Patient does have a PICC line and continued on IV antibiotics in the form of vancomycin and Flagyl. Case management following awaiting insurance authorization for ECF. Patient is afebrile denies chest pain or palpitations. Blood sugars have been elevated and will adjust medications accordingly. Continue consistent carb diet and Accu-Cheks before m eals and at bedtime. Review of systems: Constitutional: No reports of fatigue, fever, or chills Cardiovascular: No reports of chest pain or palpitations Respiratory: reports of shortness of breath with cough GI: No reports of nausea, vomiting, or diarrhea : No reports of dysuria or retention Neurovascular: reports of generalized weakness and right foot discomfort All medications have been reviewed Physical exam: GENERAL: The patient is alert and oriented x3, not in any acute distress. Josee tated, well-developed, well-nourished HEENT: Pupils are round and equally reacting to light. EOMI. CARDIOVASCULAR: S1 and S2 muffled. No murmurs, rubs, or gallops. PULMONARY: Chest is clear to auscultation, faint expiratory wheezing no crackles. ABDOMEN: Soft, nontender, nondistended, normoactive bowel sounds. EXTREMITIES: Right foot second toe amputation noted with dressing that is dry and intact NEUROLOGICAL: Gross neurological examination did not reveal any focal deficits. Diffusely weak Assessment: Acute pulmonary embolism status post EKOS maintained on eliquis Osteomyelitis status post for amputation right second toe Diabetic foot ulcer Sepsis secondary to diabetic foot infection Diabetes mellitus, type II, insulin-dependent, uncontrolled with hyperglycemia Dyslipidemia Diabetic neuropathy History of coronary artery disease GI prophylaxis DVT prophylaxis Full code Plan Patient was found to have pulmonary embolism , seen by interventional cardiology, pulmonary medicine. Status post EKOS. On Eliquis now osteomyelitis status post right second toe amputation, continue cefepime, vancomycin, Flagyl infectious disease following. Patient has PICC line and will continue IV antibiotic therapy outpatient Blood sugars are mildly elevated and will adjust long acting and continue sliding scale with Accu-Cheks before meals and at bedtime In regards to diabetic foot ulcer continue with wound care Patient continues to request IV pain medications and will adjust and encouraged oral medications as patient is not going to the ECF with IV Dilaudid Continue other cardiac medications Patient reporting some shortness of breath and is maintained on room air with pulmonary following. DuoNeb treatments ordered 4 times a day and as needed Case management following and plans on going to ECF and awaiting insurance authorization Encouraged increased activity as tolerated Possible discharge in 24 hours The impression and plan of care has been dictated by Tara Kim, Nurse Practitioner as directed. Dr. Martin MD I have performed a history and examination and MDM of this patient, discussed the same with the dictator, and agree with the dictator's assessment and plan as written ,documented as a scribe. Based on total visit time, I have performed more than 50% of the visit. Objective - Vital Signs Vital signs: Vital Signs Temp 97.7 F 12/22/22 04:00 Pulse 88 12/22/22 04:00 Resp 18 12/22/22 04:00 BP 134/77 12/22/22 04:00 Pulse Ox 96 12/22/22 04:00 FiO2 Intake & Output 12/21/22 12/22/22 12/22/22 18:59 06:59 18:59 Intake Total 458 240 Output Total 750 1500 Balance -292 -1500 240 Weight 86 kg Intake: Oral 458 240 Output: Urine 750 1500 Other: Voiding Method Toilet Urinal - Labs CBC & Chem 7: 12/22/22 09:04 12/22/22 09:04 Labs: Abnormal Lab Results - Last 24 Hours (Table) 12/21/22 12/21/22 12/21/22 Range/Units 08:43 11:37 16:40 Glucose 159 H (74-99) mg/dL POC Glucose (mg/dL) 134 H 174 H (70-110) mg/dL 12/21/22 12/22/22 Range/Units 20:00 05:32 Glucose (74-99) mg/dL POC Glucose (mg/dL) 233 H 245 H (70-110) mg/dL Microbiology - Last 24 Hours (Table) 12/16/22 21:20 Blood Culture - Final Blood
[2022-12-23 05:54] LABS: Glucose,Whole Blood 192 mg/dL (70-110)
[2022-12-23] MEDS: INSULIN ASPART (NovoLOG) 100 UNIT/ML VIAL SQ SCH ×4 (06:20→22:33)
[2022-12-23] MEDS: PANTOPRAZOLE 40 MG TABLET PO SCH (06:21)
[2022-12-23 08:23] LABS: African American GFR (CKD) >90 (>60 ml/min/1.73 sqM); Non-African American GFR(CKD) >90 (>60 ml/min/1.73 sqM)
[2022-12-23] MEDS: IPRATROPIUM-ALBUTEROL 3 ML NEB INHALATION SCH ×4 (08:29→22:09)
[2022-12-23] MEDS: ALPRAZolam 0.25 MG TAB PO SCH ×3 (08:39→20:32)
[2022-12-23] MEDS: LISINOPRIL-HCTZ 20-12.5 MG 1 EACH TAB PO SCH (08:39)
[2022-12-23] MEDS: metroNIDAZOLE 500 MG TAB PO SCH ×3 (08:39→20:32)
[2022-12-23] MEDS: PREGABALIN 50 MG CAP PO SCH ×2 (08:39→20:32)
[2022-12-23] MEDS ORDERED: Tirzepatide [Mounjaro] 5 MG/0.5 ML Pen.Injctr SQ SCH (09:00)
[2022-12-23] MEDS: HYDROcodone/APAP 5-325MG 1 EACH TAB PO PRN (10:31)
[2022-12-23] MEDS: Apixaban Initiation Dose--VTE 5 MG TAB PO SCH ×2 (10:59→20:32)
[2022-12-23 11:49] LABS: Glucose,Whole Blood 288 mg/dL (70-110)
--- NOTE | 2022-12-23 13:47 | P.PN ---
Subjective Progress Note Date: 12/23/22 Principal diagnosis: Pulmonary embolism. This is a 57-year-old white male with history of multiple medical problems, patient is known to have history of peripheral vessel occlusive disease, and history of cellulitis he was admitted last to our institution on 10/17/2022, and he underwent the right second toe amputation on 10/19 patient had a right second toe osteomyelitis. He also had diabetic foot infection and a known history of type 2 diabetes as well as coronary artery disease and hypertension. Patient has been doing well except he was supposed to follow-up with Dr. Rodriguez after his amputation, today the patient was supposed to see Dr. Rodriguez for follow-up on his toe amputation, and when he presented to [facility] he was complaining of left-sided pleuritic chest pain for the last 2 days with some shortness of breath. CT angiogram was done and it showed significant pulmonary embolism involving the left lung mostly the left lower lobe and the patient had the right ventricular strain. He was seen by cardiology on consultation, patient was brought in to [facility], underwent EKOS thrombolysis, and he was transferred to the ICU, we were asked to see him on consultation. During my evaluation, the patient had no shortness of breath his chest pain is already improving slightly pleuritic in nature on the left side of the chest, no cough, no fever no chills no hemoptysis. No nausea no vomiting he did feel lightheaded prior to this procedure. Presently relatively asymptomatic. Patient was reevaluated today on 12/17/2022, remains in the ICU, continues to have left-sided pleuritic chest pain, patient felt much better when he was given Toradol, and I'm recommending another dose of Toradol for his left sided pleuritic chest pain patient is on room air, his O2 sats is 93%. He did spike a temp last night of 102. Follow-up chest x-ray is pending this morning. WBC count today is 16.5 hemoglobin is 13.1, his fibrinogen is 746 patient continues to have a sheath in place, in the left groin, and his alteplase infusion is finished. Cardiology will likely transition the patient to [facility]. The patient is seen today 12/18/2022 in follow-up on the regular medical floor. His sheaths were removed yesterday. He is sitting up in bed. Awake and alert in no acute distress. He is still having some left-sided pleuritic chest pain. Maintaining good O2 saturations in the 90s on room air. He's afebrile. Hemodynamically stable. White count 12.5. Hemoglobin 12.1. Platelets 288. Sodium 132. Potassium 4.3. Bicarb 20. BUN 21. Creatinine 0.77. Glucose 134. He is currently on vancomycin, Flagyl and cefepime. Anticoagulated with Eliquis. Blood cultures reveal no growth. His x-ray reveals patchy infiltrate in the left lower lobe. Trace left effusion. The patient is seen today 12/21/2022 in follow-up on the selective care unit. He is currently resting comfortably in bed. Awake and alert in no acute di stress. Maintaining good O2 saturations on room air. He's been afebrile. Hemodynamically stable. His left-sided pleuritic chest pain is improving. White count 9.7. Hemoglobin 13.1. Platelets 470. Sodium 137. Potassium 4.9. Bicarb 24. BUN 16. Creatinine 0.72. Glucose 159. He is anticoagulated with Eliquis. Remains on vancomycin and cefepime. Progress note dated 12/22/2022. The patient is seen today in room 378. The patient underwent EKOS 4 acute pulmonary embolism. Currently, the patient is on room air. He is getting saline at 75 mL an hour. The patient also continues on Flagyl, vancomycin, and cefepime. The patient is having some difficulty with breathing, and is having some expiratory wheezes, so updrafts her increased to 4 times a day and when necessary. White count 10.6, hemoglobin 12.2, hematocrit 36.8, with a platelet count of 467,000. Sodium 136, potassium 4.7, chlorides 106, CO2 23, BUN 20, and creatinine 0.83. Progress note dated 12/23/2022. 57-year-old male seen in room 378. The patient was admitted with a diagnosis of massive pulmonary embolism. The patient underwent catheter directed TPA, and ultrasound dissolution of the clot (EKOS). Currently, the patient appears be doing relatively well. Currently, he's on room air. He is getting saline at 75 mL an hour, which could be discontinued. He denies any shortness of breath. Labs today include a creatinine of 0.64, and a glucose of 288. No additional labs are available. No new x-rays are available either. Objective - Vital Signs Vital signs: Vital Signs Temp 99.1 F 12/23/22 12:23 Pulse 82 12/23/22 12:23 Resp 18 12/23/22 12:23 BP 127/74 12/23/22 12:23 Pulse Ox 97 12/23/22 12:23 FiO2 Intake & Output 12/22/22 12/23/22 12/23/22 18:59 06:59 18:59 Intake Total 638 240 702 Output Total 1550 1700 1500 Balance -912 -3540 -798 Weight 86 kg Intake: IV 40 Invasive Line 2 30 Invasive Line 4 10 Oral 598 240 702 Output: Urine 1550 1700 1500 Other: Voiding Method Toilet Toilet Toilet Urinal Urinal Urinal - Exam No acute distress, oriented 3. The patient is currently on room air. HEENT examination is grossly unremarkable. Neck supple. Full range of motion. No adenopathy thyromegaly or neck vein distention. Cardiovascular examination reveals regular rhythm rate. S1-S2 normal. No S3 or S4. No discernible murmur noted. Heart rate 82 bpm. Lungs reveal expiratory wheezes and rhonchi. Breath sounds equal bilaterally. He coughs on deep inspiration. No crackles. Room air saturation is 97%. Abdomen soft bowel sounds are heard. No masses or tenderness. Extremities are intact. No cyanosis clubbing or edema. Skin is without rash or lesion. Neurologic examination is brief but nonfocal. - Labs CBC & Chem 7: 12/22/22 09:04 12/23/22 06:34 Labs: Abnormal Lab Results - Last 24 Hours (Table) 12/22/22 12/22/22 12/23/22 Range/Units 16:50 20:38 05:53 Creatinine (0.66-1.25) mg/dL POC Glucose (mg/dL) 209 H 210 H 192 H (70-110) mg/dL 12/23/22 12/23/22 Range/Units 06:34 11:43 Creatinine 0.64 L (0.66-1.25) mg/dL POC Glucose (mg/dL) 288 H (70-110) mg/dL Assessment and Plan Assessment: Acute pulmonary embolism. Left sided pleuritic chest wall pain secondary to above, improved. Acute right ventricular strain, status post EKOS thrombolysis. Type 2 diabetes with diabetic foot ulcers. History of osteomyelitis requiring toe amputation/right second toe. Dyslipidemia. Diabetic neuropathy. History of coronary artery disease. Plan: Plan dated 12/22/2022. The patient was started on a factor X a inhibitor. He continues on Flagyl, vancomycin, and cefepime, for his infections, and osteomyelitis. Labs, x-rays, and medications are reviewed. We will continue to follow the patient make recommendations along the way. We added updrafts, 4 times a day and when necessary. No additional recommendations are made at this time. Plan dated 12/23/2022. The patient appears be doing relatively well. We will achieve to follow the patient, and make recommendations along the way. He continues on Flagyl, vancomycin, and cefepime, for his osteomyelitis. Labs, x-rays, medications are reviewed. The patient denies any shortness of breath. He is currently on room air. He is getting saline at 75 mL an hour, which could be discontinued. Prognosis is guarded. No additional recommendations are made at this time. Time with Patient: Less than 30
--- NOTE | 2022-12-23 14:49 | P.PN ---
Subjective Progress Note Date: 12/22/22 Principal diagnosis: Right diabetic foot infection/right foot osteomyelitis Patient is a 57-year-old male with a past medical history significant for type 2 diabetes mellitus hypertension peripheral arterial disease history of right big toe amputation secondary to infection and recently did have a right second toe amputation done at [facility] on 10/17/2022, patient subsequently did have reopening of the wound to the right second toe amputation site with some purulent drainage and the patient was advised by his surgeon to go to [facility], where the patient was admitted on 11/26/2022 patient did have local wound culture done which grew MRSA and gram-negative patient did get a PICC line and was advised IV antibiotic therapy, with a readmission to the hospital with left-sided chest pain has been diagnosed with extensive left-sided PE with the right heart strain and the patient is status post EKOS procedure. On today's evaluation that is 12/22/2022, the patient remains to be afebrile, the patient is breathing comfortably on room air without the need for supplemental oxygen however circumventing of some shortness of breath, the patient has been complaining of some chest pain and cough, patient denies nausea/vomiting /diarrhea and no abdominal pain, denies pain to the right foot Patient white count of 10.6 creatinine 0.83 blood cultures negative Objective - Vital Signs Vital signs: Vital Signs Temp 98.1 F 12/22/22 16:58 Pulse 80 12/22/22 16:58 Resp 16 12/22/22 16:58 BP 129/78 12/22/22 16:58 Pulse Ox 95 12/22/22 16:58 FiO2 Intake & Output 12/22/22 12/22/22 12/23/22 06:59 18:59 06:59 Intake Total 638 Output Total 1500 1550 Balance -1500 -912 Weight 86 kg Intake: IV 40 Invasive Line 2 30 Invasive Line 4 10 Oral 598 Output: Urine 1500 1550 Other: Voiding Method Toilet Toilet Urinal Urinal - Exam GENERAL DESCRIPTION: Middle-aged male lying in bed in no distress RESPIRATORY SYSTEM: Unlabored breathing , decreased breath sounds at bases HEART: S1 S2 regular rate and rhythm , ABDOMEN: Soft , no tenderness EXTREMITIES: Right foot is currently dressed - Labs CBC & Chem 7: 12/22/22 09:04 12/23/22 06:34 Labs: Abnormal Lab Results - Last 24 Hours (Table) 12/22/22 12/22/22 12/22/22 Range/Units 05:32 09:04 09:04 RBC 4.05 L (4.30-5.90) m/uL Hgb 12.2 L (13.0-17.5) gm/dL Hct 36.8 L (39.0-53.0) % Plt Count 467 H (150-450) k/uL Sodium 136 L (137-145) mmol/L Glucose 219 H (74-99) mg/dL POC Glucose (mg/dL) 245 H (70-110) mg/dL 12/22/22 12/22/22 12/22/22 Range/Units 11:59 16:50 20:38 RBC (4.30-5.90) m/uL Hgb (13.0-17.5) gm/dL Hct (39.0-53.0) % Plt Count (150-450) k/uL Sodium (137-145) mmol/L Glucose (74-99) mg/dL POC Glucose (mg/dL) 231 H 209 H 210 H (70-110) mg/dL Microbiology - Last 24 Hours (Table) 12/16/22 21:20 Blood Culture - Final Blood Assessment and Plan (1) Diabetic foot ulcer Current Visit: No Status: Acute Code(s): E11.621 - TYPE 2 DIABETES MELLITUS WITH FOOT ULCER; L97.509 - NON-PRESSURE CHRONIC ULCER OTH PRT UNSP FOOT W UNSP SEVERITY SNOMED Code(s): 300197051 (2) Osteomyelitis of toe of right foot Current Visit: No Status: Acute Code(s): M86.9 - OSTEOMYELITIS, UNSPECIFIED SNOMED Code(s): 050928496 Plan: 1patient presented to the hospital with sepsis in this patient with a fever tachycardia elevated white count source likely right second toe amputation site wound infection with osteomyelitis that was diagnosed at [facility] on 11/26/2022, wound culture at the time did grew MRSA gram-negative to be the likely pathogen as the patient currently was seem to be drying out without any drainage 2 Doppler ultrasound of the left upper extremity was negative DVT however did shows possible SVT, patient is already on Eliquis 3-Patient is afebrile and WBC has normalized , plan is continue with vancomycin pharmacy to dose cefepime and Flagyl to finish his 6 week course of therapy Dictation was produced using [employer] dictation software. please excuse any grammatical, word or spelling errors. Time with Patient: Less than 30
--- NOTE | 2022-12-23 14:50 | P.PN ---
Subjective Progress Note Date: 12/23/22 Principal diagnosis: Right diabetic foot infection/right foot osteomyelitis Patient is a 57-year-old male with a past medical history significant for type 2 diabetes mellitus hypertension peripheral arterial disease history of right big toe amputation secondary to infection and recently did have a right second toe amputation done at [facility] on 10/17/2022, patient subsequently did have reopening of the wound to the right second toe amputation site with some purulent drainage and the patient was advised by his surgeon to go to [facility], where the patient was admitted on 11/26/2022 patient did have local wound culture done which grew MRSA and gram-negative patient did get a PICC line and was advised IV antibiotic therapy, with a readmission to the hospital with left-sided chest pain has been diagnosed with extensive left-sided PE with the right heart strain and the patient is status post EKOS procedure. On today's evaluation that is 12/23/2022, the patient denies any fever or any chills, the patient is breathing comfortably on room air without the need for supplemental oxygen however still complaining of some shortness of breath, the patient has been complaining of some chest pain and cough, patient denies nausea/vomiting /diarrhea and no abdominal pain, denies pain to the right foot no new symptoms Patient white count of 10.6 as of 12/22/2022 creatinine is 0.64 blood cultures negative Objective - Vital Signs Vital signs: Vital Signs Temp 99.1 F 12/23/22 12:23 Pulse 82 12/23/22 12:23 Resp 18 12/23/22 12:23 BP 127/74 12/23/22 12:23 Pulse Ox 97 12/23/22 12:23 FiO2 Intake & Output 12/22/22 12/23/22 12/23/22 18:59 06:59 18:59 Intake Total 638 240 480 Output Total 1550 1700 1500 Balance -912 1460 -1020 Weight 86 kg Intake: IV 40 Invasive Line 2 30 Invasive Line 4 10 Oral 598 240 480 Output: Urine 1550 1700 1500 Other: Voiding Method Toilet Toilet Toilet Urinal Urinal Urinal - Exam GENERAL DESCRIPTION: Middle-aged male lying in bed in no distress RESPIRATORY SYSTEM: Unlabored breathing , decreased breath sounds at bases HEART: S1 S2 regular rate and rhythm , ABDOMEN: Soft , no tenderness EXTREMITIES: Right foot is currently dressed - Labs CBC & Chem 7: 12/22/22 09:04 12/23/22 06:34 Labs: Abnormal Lab Results - Last 24 Hours (Table) 12/22/22 12/22/22 12/23/22 Range/Units 16:50 20:38 05:53 Creatinine (0.66-1.25) mg/dL POC Glucose (mg/dL) 209 H 210 H 192 H (70-110) mg/dL 12/23/22 12/23/22 Range/Units 06:34 11:43 Creatinine 0.64 L (0.66-1.25) mg/dL POC Glucose (mg/dL) 288 H (70-110) mg/dL Assessment and Plan (1) Diabetic foot ulcer Current Visit: No Status: Acute Code(s): E11.621 - TYPE 2 DIABETES MELLITUS WITH FOOT ULCER; L97.509 - NON-PRESSURE CHRONIC ULCER OTH PRT UNSP FOOT W UNSP SEVERITY SNOMED Code(s): 747187121 (2) Osteomyelitis of toe of right foot Current Visit: No Status: Acute Code(s): M86.9 - OSTEOMYELITIS, UNSPECIFIED SNOMED Code(s): 863255594 Plan: 1patient presented to the hospital with sepsis in this patient with a fever tachycardia elevated white count source likely right second toe amputation site wound infection with osteomyelitis that was diagnosed at [facility] on 11/26/2022, wound culture at the time did grew MRSA gram-negative to be the likely pathogen as the patient currently was seem to be drying out without any drainage 2 Doppler ultrasound of the left upper extremity was negative DVT however did shows possible SVT, patient is already on Eliquis 3-Patient is afebrile and WBC has normalized 4- plan is continue with vancomycin pharmacy to dose cefepime and Flagyl to finish his 6 week course of therapy, patient has received about 4 weeks of antibiotic will need only 2 weeks on discharge this was discussed with the case mgr Dictation was produced using [employer] software. please excuse any grammatical, word or spelling errors. Time with Patient: Less than 30
[2022-12-23] MEDS: ONDANSETRON 4 MG/2 ML VIAL IVP PRN ×2 (15:23→20:48)
[2022-12-23] MEDS: HYDROcodone/APAP 7.5-325MG 1 EACH TAB PO PRN ×2 (15:23→23:57)
[2022-12-23 16:54] LABS: Glucose,Whole Blood 268 mg/dL (70-110)
[2022-12-23] MEDS: MELATONIN 3 MG TABLET PO SCH (20:32)
[2022-12-23 20:58] LABS: Glucose,Whole Blood 189 mg/dL (70-110)
[2022-12-23] MEDS ORDERED: INSULIN DETEMIR (LEVEMIR) 100 UNIT/ML SYR SQ SCH (21:00)
--- NOTE | 2022-12-23 22:36 | P.PN ---
Subjective Progress Note Date: 12/23/22 57-year-old gentleman with past medical history significant for peripheral vessel occlusive disease,type 2 diabetes as well as coronary artery disease, hypertension who was transferred from [facility] after being diagnosed with acute PE for EKOS. Patient recently was admitted to [facility] on 10/17/2022, and he underwent the right second toe amputation on 10/19 for right second toe osteomyelitis. Patient was being seen by ID for IV antibiotics and by vascular surgery for wound care. Patient went to [facility] and therefore he was complaining of left-sided chest pain. Patient was immediately sent for computed tomography scan of chest. * CT angiogram was done and it showed significant pulmonary embolism involving the left lung mostly the left lower lobe and the patient had the right ventricular strain * Patient was transferred to [facility] for EKOS admitted to ICU 12/20/2022 -- patient is seen and evaluated in room at bedside; reports to be doing well, afebrile, he has intermittent cough, some vague chest discomfort, no nausea no vomiting no abdominal pain. -- WBC count is 10.5 hemoglobin 13 electrolytes are normal renal profile is normal blood cultures have been negative in the last 72 hours Repeat chest x-ray this morning reveals persistent left lower lobe infiltrate, slightly improved from prior study; likely related to pulmonary infarction per pulmonary; continue with current anticoagulation ---right second toe amputation site wound infection with osteomyelitis that was diagnosed at [facility] on 11/26/2022, wound culture at the time did grew MRSA gram-negative to be the likely pathogen as the patient currently was seem to be drying out without any drainage Doppler ultrasound of the left upper extremity was negative DVT however did shows possible SVT, patient is already on Eliquis -Patient is afebrile and WBC has normalized , to continue with vancomycin pharmacy to dose cefepime and Flagyl and monitor clinical course closely 12/21/2022 Patient is seen and evaluated in follow-up;. resting comfortably in bed. Awake and alert in no acute distress. Maintaining good O2 saturations on room air. He's been afebrile. Hemodynamically stable. His left-sided pleuritic chest pain is improving. -- White count 9.7. Hemoglobin 13.1. Platelets 470. Sodium 137. Potassium 4.9. Bicarb 24. BUN 16. Creatinine 0.72. Glucose 159. - He is anticoagulated with Eliquis. Remains on vancomycin and cefepime ID on board for right second toe amputation site infection/osteomyelitis and recommending to continue with IV vancomycin and cefepime along with Flagyl; further recommendations pending clinical course 12/22/2022 Patient is seen in follow-up today with multiple medical consultations following including pulmonary, infectious disease. Patient reports pain with inspiration and some shortness of breath although his breathing and maintaining oxygen saturations over 92% room air. Patient does have pain medications and not utilizing any oral and has been requesting IV pain medications. Will adjust medications and encouraged oral patient will be going to ECF and will not be continued on IV pain medications. Patient does have a PICC line and continued on IV antibiotics in the form of vancomycin and Flagyl. Case management following awaiting insurance authorization for ECF. Patient is afebrile denies chest pain or palpitations. Blood sugars have been elevated and will adjust medications accordingly. Continue consistent carb diet and Accu-Cheks before m eals and at bedtime. 12/23/2022 Patient is seen in follow-up today continues to be agitated as he is frustrated having to go to ECF and continuing on IV antibiotics. Patient will continue an additional 2 weeks course and continues with PICC line with Vanco, cefepime, and Flagyl per ID recommendations. Patient continues to report pain and discussed further with patient about discontinuing IV narcotics and will adjust her medications accordingly. Encouraged oral medications. Patient with case management following continuing to wait for insurance authorization. Patient is afebrile with no reported chest pain or shortness of breath. Pulmonary following as well will continue on anticoagulation. Review of systems: Constitutional: No reports of fatigue, fever, or chills Cardiovascular: No reports of chest pain or palpitations Respiratory: reports of shortness of breath with cough GI: No reports of nausea, vomiting, or diarrhea : No reports of dysuria or retention Neurovascular: reports of generalized weakness and right foot discomfort All medications have been reviewed Physical exam: GENERAL: The patient is alert and oriented x3, not in any acute distress. Agitated, well-developed, well-nourished HEENT: Pupils are round and equally reacting to light. EOMI. CARDIOVASCULAR: S1 and S2 muffled. No murmurs, rubs, or gallops. PULMONARY: Chest is clear to auscultation, faint expiratory wheezing no crackles. ABDOMEN: Soft, nontender, nondistended, normoactive bowel sounds. EXTREMITIES: Right foot second toe amputation noted with dressing that is dry and intact NEUROLOGICAL: Gross neurological examination did not reveal any focal deficits. Diffusely weak Assessment: Acute pulmonary embolism status post EKOS maintained on eliquis Osteomyelitis status post for amputation right second toe Diabetic foot ulcer Sepsis secondary to diabetic foot infection Diabetes mellitus, type II, insulin-dependent, uncontrolled with hyperglycemia Dyslipidemia Diabetic neuropathy History of coronary artery disease GI prophylaxis DVT prophylaxis Full code Plan Patient was found to have pulmonary embolism. Status post EKOS. On Eliquis now osteomyelitis status post right second toe amputation, continue cefepime, vancomycin, Flagyl infectious disease following. Patient has PICC line and will continue IV antibiotic therapy outpatient for additional 2 weeks per ID recommendations to complete 6 weeks course. Continue monitoring Blood sugars and continue sliding scale with Accu-Cheks before meals and at bedtime Case management following and plans on going to [facility] and awaiting insurance authorization Encouraged increased activity as tolerated Possible discharge in 24 hours The impression and plan of care has been dictated by Tara Kim, Nurse Practitioner as directed. Dr. Martin MD I have performed a history and examination and MDM of this patient, discussed the same with the dictator, and agree with the dictator's assessment and plan as written ,documented as a scribe. Based on total visit time, I have performed more than 50% of the visit. Objective - Vital Signs Vital signs: Vital Signs Temp 98.0 F 12/23/22 08:20 Pulse 68 12/23/22 08:31 Resp 18 12/23/22 08:20 BP 135/78 12/23/22 08:20 Pulse Ox 98 12/23/22 08:20 FiO2 Intake & Output 12/22/22 12/23/22 12/23/22 18:59 06:59 18:59 Intake Total 638 240 Output Total 1550 1700 Balance -912 -1460 Weight 86 kg Intake: IV 40 Invasive Line 2 30 Invasive Line 4 10 Oral 598 240 Output: Urine 1550 1700 Other: Voiding Method Toilet Toilet Urinal Urinal - Labs CBC & Chem 7: 12/22/22 09:04 12/23/22 06:34 Labs: Abnormal Lab Results - Last 24 Hours (Table) 12/22/22 12/22/22 12/22/22 Range/Units 09:04 09:04 11:59 RBC 4.05 L (4.30-5.90) m/uL Hgb 12.2 L (13.0-17.5) gm/dL Hct 36.8 L (39.0-53.0) % Plt Count 467 H (150-450) k/uL Sodium 136 L (137-145) mmol/L Creatinine (0.66-1.25) mg/dL Glucose 219 H (74-99) mg/dL POC Glucose (mg/dL) 231 H (70-110) mg/dL 12/22/22 12/22/22 12/23/22 Range/Units 16:50 20:38 05:53 RBC (4.30-5.90) m/uL Hgb (13.0-17.5) gm/dL Hct (39.0-53.0) % Plt Count (150-450) k/uL Sodium (137-145) mmol/L Creatinine (0.66-1.25) mg/dL Glucose (74-99) mg/dL POC Glucose (mg/dL) 209 H 210 H 192 H (70-110) mg/dL 12/23/22 Range/Units 06:34 RBC (4.30-5.90) m/uL Hgb (13.0-17.5) gm/dL Hct (39.0-53.0) % Plt Count (150-450) k/uL Sodium (137-145) mmol/L Creatinine 0.64 L (0.66-1.25) mg/dL Glucose (74-99) mg/dL POC Glucose (mg/dL) (70-110) mg/dL
[2022-12-24] MEDS: VANCOMYCIN 1,750 MG in SODIUM CHLORIDE 0.9% 500 ML 500 ML IVPB SCH (04:16)
[2022-12-24] MEDS: ONDANSETRON 4 MG/2 ML VIAL IVP PRN ×2 (04:24→14:47)
[2022-12-24 05:50] LABS: Glucose,Whole Blood 183 mg/dL (70-110)
[2022-12-24] MEDS: IPRATROPIUM-ALBUTEROL 3 ML NEB INHALATION SCH ×3 (08:06→15:36)
[2022-12-24] MEDS ORDERED: traMADol 50 MG TAB PO PRN (09:21)
[2022-12-24] MEDS: LISINOPRIL-HCTZ 20-12.5 MG 1 EACH TAB PO SCH (09:28)
[2022-12-24] MEDS: PREGABALIN 50 MG CAP PO SCH (09:28)
[2022-12-24] MEDS: ALPRAZolam 0.25 MG TAB PO SCH (09:28)
[2022-12-24] MEDS: metroNIDAZOLE 500 MG TAB PO SCH (09:28)
[2022-12-24] MEDS: PANTOPRAZOLE 40 MG TABLET PO SCH (09:28)
[2022-12-24] MEDS: Apixaban Initiation Dose--VTE 5 MG TAB PO SCH (09:29)
[2022-12-24] MEDS: CEFEPIME 2 GM in SODIUM CHLORIDE 0.9% 100 ML IVPB SCH (09:29)
[2022-12-24] MEDS: INSULIN ASPART (NovoLOG) 100 UNIT/ML VIAL SQ SCH ×2 (10:30→11:53)
[2022-12-24 10:46] VITALS: RESP 18; TEMP 98
[2022-12-24 11:25] LABS: Glucose,Whole Blood 279 mg/dL (70-110)
--- NOTE | 2022-12-24 13:43 | P.DS ---
Providers Date of admission: 12/16/22 11:21 Expected date of discharge: 12/24/22 Attending physician: Radha Hutchins Consults: 12/16/22 14:11 Consult Physician Routine Consulting Provider: Vincenzo Vences Consult Reason/Comments: Post PE Care Do you want consulting provider notified?: Yes 12/16/22 14:15 Consult Physician Routine Consulting Provider: Simon Kimble Consult Reason/Comments: Post PE Do you want consulting provider notified?: Yes 12/17/22 11:10 Consult Physician Routine Consulting Provider: Hu Mendoza Consult Reason/Comments: Right foot osteomyelitis Do you want consulting provider notified?: Yes Primary care physician: Deyvi Hurtado Hospital Course: Final diagnosis Acute pulmonary embolism status post EKOS maintained on eliquis Osteomyelitis status post for amputation right second toe Diabetic foot ulcer Sepsis secondary to diabetic foot infection Diabetes mellitus, type II, insulin-dependent, uncontrolled with hyperglycemia Dyslipidemia Diabetic neuropathy History of coronary artery disease GI prophylaxis DVT prophylaxis Full code Discharge disposition Patient is being discharged in a stable condition with guarded prognosis to [facility]. Patient will follow-up with his primary care provider in the outpatient setting upon discharge. Patient is to continue with IV antibiotics in the form of cefepime and Vanco for the next 2 weeks and has a PICC line. Total time taken is greater than 35 minutes. Hospital course This is a 57-year-old male who was recently admitted with shortness of breath found to have pulmonary embolism sent over here from [facility] and underwent ekos. Patient is a recent right second toe amputation with osteomyelitis and significant comorbidities and extensive wounds with failure of outpatient. Patient also known to have osteomyelitis has a PICC line and has been receiving antibiotics in the outpatient setting. Patient having increased shortness of breath and chest pain showing some heart strain and is status post ekos. A shunt was maintained on heparin and has transitioned to eliquis and is continued on 10 mg twice daily until 12/27/2022 and then will decrease the dose down to 5 mg twice daily thereafter. Patient has been cleared by consultations and insurance authorization was obtained for patient to go to [facility] for continued wound care along with IV antibiotic therapy. Please refer to other consultation notes for further HPI. Currently no reports of chest pain, shortness of breath, or palpitations. Patient is afebrile. No reports of nausea or vomiting and patient is tolerating diet. Patient will be going to [facility] today. Physical exam: Gen: This is a 57-year-old male who is awake, alert and oriented 3, well- developed, well-nourished HEENT: Head is atraumatic, normocephalic. Pupils equal, round. Sclerae is anicteric. NECK: Supple. No JVD. No lymphadenopathy. No thyromegaly. LUNGS: Clear to auscultation. No wheezes or rhonchi. No intercostal retractions. HEART: Regular rate and rhythm. No murmur. ABDOMEN: Soft. Bowel sounds are present. No masses. No tenderness. EXTREMITIES: No pedal edema. No calf tenderness. Right foot dressing is dry and intact NEUROLOGICAL: Patient is awake, alert and oriented x3. Cranial nerves 2 through 12 are grossly intact. Diffusely weak Please refer to medication reconciliation sheet for a list of medications. The impression and plan of care has been dictated by Tara Kim, Nurse Practitioner as directed. MD Cam I have performed a history and examination and MDM of this patient, discussed the same with the dictator, and agree with the dictator's assessment and plan as written ,documented as a scribe. Based on total visit time, I have performed more than 50% of the visit. Patient Condition at Discharge: Stable Plan - Discharge Summary Discharge Rx Participant: No New Discharge Prescriptions: New Ipratropium-Albuterol Nebulize [Duoneb 0.5 mg-3 mg/3 ml Soln] 3 ml INHALATION RT-QID each Apixaban Initiation Dose--VTE [Eliquis Initiation Dosing for VTE Treatment] 10 mg PO BID tab Insulin Detemir (Levemir) [Levemir] 20 unit SQ HS each Cefepime [Maxipime] 2 gm IVPB Q8HR 14 Days #42 each Ondansetron [Zofran] 4 mg PO Q8HR PRN #20 tab PRN Reason: Nausea HYDROcodone/APAP 7.5-325MG [Hinckley 7.5-325] 1 each PO Q6HR PRN #6 tab PRN Reason: Pain INSULIN ASPART (NovoLOG) [NovoLOG (formulary)] 0 unit SQ ACHS each traMADol HCl [Ultram] 50 mg PO TID PRN #6 tab PRN Reason: Pain Vancomycin 1,750 mg IVPB Q12H 14 Days #28 each ALPRAZolam [Xanax] 0.25 mg PO TID #3 tab Continue Omeprazole [PriLOSEC] 20 mg PO AC-BID Tirzepatide [Mounjaro] 5 mg SQ TH Melatonin 3 mg PO HS Empagliflozin [Jardiance] 25 mg PO DAILY Pregabalin [Lyrica] 50 mg PO BID #6 cap Lisinopril-Hctz 20-12.5 mg [Zestoretic 20-12.5] 1 tab PO DAILY metroNIDAZOLE 500 mg PO TID Acetaminophen [Tylenol] 650 mg PO Q6HR PRN PRN Reason: Pain Sennosides [Senokot] 8.6 mg PO BID PRN PRN Reason: Constipation Glimepiride [Amaryl] 2 mg PO DAILY Lactobacillus Rhamnosus GG [Culturelle] 1 cap PO DAILY Discontinued HYDROcodone/APAP 5-325MG [Hinckley 5-325] 1 tab PO Q4HR PRN PRN Reason: Pain cefTRIAXone [Rocephin] 2 gm IV Q24H Discharge Medication List Lisinopril-Hctz 20-12.5 mg [Zestoretic 20-12.5] 1 tab PO DAILY 02/13/22 [History] Omeprazole [PriLOSEC] 20 mg PO AC-BID 10/17/22 [History] Acetaminophen [Tylenol] 650 mg PO Q6HR PRN 12/16/22 [History] Empagliflozin [Jardiance] 25 mg PO DAILY 12/16/22 [History] Glimepiride [Amaryl] 2 mg PO DAILY 12/16/22 [History] Lactobacillus Rhamnosus GG [Culturelle] 1 cap PO DAILY 12/16/22 [History] Melatonin 3 mg PO HS 12/16/22 [History] Sennosides [Senokot] 8.6 mg PO BID PRN 12/16/22 [History] Tirzepatide [Mounjaro] 5 mg SQ TH 12/16/22 [History] metroNIDAZOLE 500 mg PO TID 12/16/22 [History] ALPRAZolam [Xanax] 0.25 mg PO TID #3 tab 12/24/22 [Rx] Apixaban Initiation Dose--VTE [Eliquis Initiation Dosing for VTE Treatment] 10 mg PO BID tab 12/24/22 [Rx] Cefepime [Maxipime] 2 gm IVPB Q8HR 14 Days #42 each 12/24/22 [Rx] HYDROcodone/APAP 7.5-325MG [Hinckley 7.5-325] 1 each PO Q6HR PRN #6 tab 12/24/22 [Rx] INSULIN ASPART (NovoLOG) [NovoLOG (formulary)] 0 unit SQ ACHS each 12/24/22 [Rx] Insulin Detemir (Levemir) [Levemir] 20 unit SQ HS each 12/24/22 [Rx] Ipratropium-Albuterol Nebulize [Duoneb 0.5 mg-3 mg/3 ml Soln] 3 ml INHALATION RT-QID each 12/24/22 [Rx] Ondansetron [Zofran] 4 mg PO Q8HR PRN #20 tab 12/24/22 [Rx] Pregabalin [Lyrica] 50 mg PO BID #6 cap 12/24/22 [Rx] Vancomycin 1,750 mg IVPB Q12H 14 Days #28 each 12/24/22 [Rx] traMADol HCl [Ultram] 50 mg PO TID PRN #6 tab 12/24/22 [Rx] Activity/Diet/Wound Care/Special Instructions: Continue IV abx for 2 more weeks, end date 01/06/23. Patient is going to [facility] as tolerated Patient is to continue on IV antibiotics with a PICC line for the next 2 weeks per ID recommendations Continue monitoring Accu-Cheks before meals and at bedtime and continue sliding scale and long-acting NovoLog sliding scale 0-150 equals 0 units 151-200 equals 2 units 201-250 equals 4 units 251-300 equals 6 units 301-350 equals 8 units 351-400 equals 10 units Please notify provider if blood sugar is 400 or above Continue consistent carb diet Patient is to continue on oral Eliquis 10 mg twice daily until 12/27/2022 and then transition to 5 mg twice daily starting 12/28/2022 Patient instructed to follow-up with primary care provider on discharge from [facility] Follow-up outpatient with infectious disease Discharge Disposition: TRANSFER TO SNF/F
[2022-12-24] MEDS ORDERED: VANCOMYCIN TROUGH DUE 1 EACH MISC MISCELLANE ONE (15:00)
--- NOTE | 2022-12-24 16:22 | P.PN ---
Subjective Progress Note Date: 12/24/22 This is a 57-year-old white male with history of multiple medical problems, patient is known to have history of peripheral vessel occlusive disease, and history of cellulitis he was admitted last to our institution on 10/17/2022, and he underwent the right second toe amputation on 10/19 patient had a right second toe osteomyelitis. He also had diabetic foot infection and a known history of type 2 diabetes as well as coronary artery disease and hypertension. Patient has been doing well except he was supposed to follow-up with Dr. Rodriguez after his amputation, today the patient was supposed to see Dr. Rodriguez for follow-up on his toe amputation, and when he presented to [facility] he was complaining of left-sided pleuritic chest pain for the last 2 days with some shortness of breath. CT angiogram was done and it showed significant pulmonary embolism involving the left lung mostly the left lower lobe and the patient had the right ventricular strain. He was seen by cardiology on consultation, patient was brought in to [facility], underwent EKOS thrombolysis, and he was transferred to the ICU, we were asked to see him on consultation. During my evaluation, the patient had no shortness of breath his chest pain is already improving slightly pleuritic in nature on the left side of the chest, no cough, no fever no chills no hemoptysis. No nausea no vomiting he did feel lightheaded prior to this procedure. Presently relatively asymptomatic. Patient was reevaluated today on 12/17/2022, remains in the ICU, continues to have left-sided pleuritic chest pain, patient felt much better when he was given Toradol, and I'm recommending another dose of Toradol for his left sided pleuritic chest pain patient is on room air, his O2 sats is 93%. He did spike a temp last night of 102. Follow-up chest x-ray is pending this morning. WBC count today is 16.5 hemoglobin is 13.1, his fibrinogen is 746 patient continues to have a sheath in place, in the left groin, and his alteplase infusion is finished. Cardiology will likely transition the patient to [facility]. The patient is seen today 12/18/2022 in follow-up on the regular medical floor. His sheaths were removed yesterday. He is sitting up in bed. Awake and alert in no acute distress. He is still having some left-sided pleuritic chest pain. Maintaining good O2 saturations in the 90s on room air. He's afebrile. Hemodynamically stable. White count 12.5. Hemoglobin 12.1. Platelets 288. Sodium 132. Potassium 4.3. Bicarb 20. BUN 21. Creatinine 0.77. Glucose 134. He is currently on vancomycin, Flagyl and cefepime. Anticoagulated with Eliquis. Blood cultures reveal no growth. His x-ray reveals patchy infiltrate in the left lower lobe. Trace left effusion. The patient is seen today 12/21/2022 in follow-up on the selective care unit. He is currently resting comfortably in bed. Awake and alert in no acute distress. Maintaining good O2 saturations on room air. He's been afebrile. Hemodynamically stable. His left-sided pleuritic chest pain is improving. White count 9.7. Hemoglobin 13.1. Platelets 470. Sodium 137. Potassium 4.9. Bicarb 24. BUN 16. Creatinine 0.72. Glucose 159. He is anticoagulated with Eliquis. Remains on vancomycin and cefepime. The patient is seen today 12/24/2022 in follow-up on the selective care unit. He is currently sitting up at the bedside. Awake and alert in no acute distress. Maintaining good O2 saturations in the upper 90s on room air. He's been afebrile. Hemodynamically stable. Blood cultures revealed no growth. Blood sugar 183. He is continued on bronchodilators. Antibiotics in the form of vancomycin and cefepime. Anticoagulated with Eliquis. Objective - Vital Signs Vital signs: Vital Signs Temp 98.0 F 12/24/22 08:00 Pulse 89 12/24/22 14:00 Resp 18 12/24/22 14:00 BP 129/74 12/24/22 12:00 Pulse Ox 95 12/24/22 12:00 FiO2 Intake & Output 12/23/22 12/24/22 12/24/22 18:59 06:59 18:59 Intake Total 712 10 Output Total 2049 Balance -1338 10 Intake: IV 10 10 Invasive Line 2 10 10 Oral 702 Output: Urine 2049 Other: Voiding Method Toilet Toilet Toilet Urinal Urinal Urinal # Voids 1 1 # Bowel Movements 1 - Exam GENERAL EXAM: Alert, 57-year-old male patient, on room air, in no apparent distress. HEAD: Normocephalic. EYES: Normal reaction of pupils, equal size. NOSE: Clear with pink turbinates. THROAT: No erythema or exudates. NECK: No masses, no JVD. CHEST: No chest wall deformity. LUNGS: Equal air entry with no crackles, wheeze, rhonchi or dullness. CVS: S1 and S2 normal with no audible murmur, regular rhythm. ABDOMEN: No hepatosplenomegaly, normal bowel sounds, no guarding or rigidity. SPINE: No scoliosis or deformity SKIN: No rashes CENTRAL NERVOUS SYSTEM: No focal deficits, tone is normal in all 4 extremities. EXTREMITIES: PICC line to the right upper extremity. Right second toe amput ation, dressings to the bilateral feet. There is no peripheral edema. No clubbing, no cyanosis. Peripheral pulses are intact. - Labs CBC & Chem 7: 12/22/22 09:04 12/23/22 06:34 Labs: Abnormal Lab Results - Last 24 Hours (Table) 12/23/22 12/23/22 12/24/22 Range/Units 16:52 20:56 05:48 POC Glucose (mg/dL) 268 H 189 H 183 H (70-110) mg/dL 12/24/22 Range/Units 11:24 POC Glucose (mg/dL) 279 H (70-110) mg/dL Assessment and Plan Assessment: Acute pulmonary embolism, anticoagulated with Eliquis Left sided pleuritic chest wall pain secondary to above, improved Acute right ventricular strain, status post EKOS thrombolysis Type 2 diabetes with diabetic foot ulcers History of osteomyelitis requiring toe amputation/right second toe, continued on vancomycin and cefepime Dyslipidemia Diabetic neuropathy History of coronary artery disease Plan: The patient was seen and evaluated Medications reviewed Stable and on room air Continued on Eliquis Antibiotics per ID service Cleared for discharge from the pulmonary standpoint I have personally seen and examined the patient, performed the documentation and the assessment and plan as written. Number of minutes spent on the visit: 10.
[2022-12-24 16:37] VITALS: BP 122/76; PULSE 88
[2022-12-25] MEDS ORDERED: APIXABAN 5 MG TAB PO SCH (08:00)
--- NOTE | 2022-12-31 12:33 | P.PN ---
Subjective Progress Note Date: 12/24/22 Principal diagnosis: Right diabetic foot infection/right foot osteomyelitis Patient is a 57-year-old male with a past medical history significant for type 2 diabetes mellitus hypertension peripheral arterial disease history of right big toe amputation secondary to infection and recently did have a right second toe amputation done at [facility] on 10/17/2022, patient subsequently did have reopening of the wound to the right second toe amputation site with some purulent drainage and the patient was advised by his surgeon to go to [facility], where the patient was admitted on 11/26/2022 patient did have local wound culture done which grew MRSA and gram-negative patient did get a PICC line and was advised IV antibiotic therapy, with a readmission to the hospital with left-sided chest pain has been diagnosed with extensive left-sided PE with the right heart strain and the patient is status post EKOS procedure. On today's evaluation that is 12/24/2022, the patient remains to be afebrile, the patient is breathing comfortably on room air, the patient still complaining of some shortness of breath, the patient has been complaining of some chest pain and cough, patient denies nausea/vomiting /diarrhea and no abdominal pain, denies pain to the right foot no new symptoms Patient white count of 10.6 as of 12/22/2022 creatinine is 0.64 , no new labs drawn today blood cultures negative Objective - Vital Signs Vital signs: Vital Signs Temp 98.0 F 12/24/22 08:00 Pulse 74 12/24/22 11:41 Resp 18 12/24/22 08:00 BP 129/74 12/24/22 08:00 Pulse Ox 95 12/24/22 08:00 FiO2 Intake & Output 12/23/22 12/24/22 12/24/22 18:59 06:59 18:59 Intake Total 712 10 Output Total 2049 Balance -1338 10 Intake: IV 10 10 Invasive Line 2 10 10 Oral 702 Output: Urine 2049 Other: Voiding Method Toilet Toilet Toilet Urinal Urinal Urinal # Voids 1 1 # Bowel Movements 1 - Exam GENERAL DESCRIPTION: Middle-aged male lying in bed in no distress RESPIRATORY SYSTEM: Unlabored breathing , decreased breath sounds at bases HEART: S1 S2 regular rate and rhythm , ABDOMEN: Soft , no tenderness EXTREMITIES: Right foot is currently dressed - Labs CBC & Chem 7: 12/22/22 09:04 12/23/22 06:34 Labs: Abnormal Lab Results - Last 24 Hours (Table) 12/23/22 12/23/22 12/24/22 Range/Units 16:52 20:56 05:48 POC Glucose (mg/dL) 268 H 189 H 183 H (70-110) mg/dL 12/24/22 Range/Units 11:24 POC Glucose (mg/dL) 279 H (70-110) mg/dL Assessment and Plan (1) Diabetic foot ulcer Status: Acute Code(s): E11.621 - TYPE 2 DIABETES MELLITUS WITH FOOT ULCER; L97.509 - NON-PRESSURE CHRONIC ULCER OTH PRT UNSP FOOT W UNSP SEVERITY SNOMED Code(s): 053678285 (2) Osteomyelitis of toe of right foot Status: Acute Code(s): M86.9 - OSTEOMYELITIS, UNSPECIFIED SNOMED Code(s): 922038638 Plan: 1patient presented to the hospital with sepsis in this patient with a fever tachycardia elevated white count source likely right second toe amputation site wound infection with osteomyelitis that was diagnosed at [facility] on 11/26/2022, wound culture at the time did grew MRSA gram-negative to be the likely pathogen as the patient currently was seem to be drying out without any drainage 2 Doppler ultrasound of the left upper extremity was negative DVT however did shows possible SVT, patient is already on Eliquis 3-Patient is afebrile and WBC has normalized 4-patient to continue with vancomycin pharmacy to dose cefepime and Flagyl for another 2 weeks to finish his 6 week course of therapy and close outpatient follow-up Dictation was produced using Holgan[employer] software. please excuse any grammatical, word or spelling errors. Time with Patient: Less than 30
== END 2022-12-24 17:10 | DRG 711 ==
LOC: 2SICU 11:21 → 3SCARD 12-18 08:35
PROVIDERS: ADMIT Hospitalist; ATTEND Hospitalist
PROC: 3E03317 Introduction of Other Thrombolytic into Peripheral Vein, Percutaneous Approach (ICD-10-PCS; principal; 2022-12-16 13:00)
PROC: 02FR3Z0 Fragmentation of Left Pulmonary Artery, Percutaneous Approach, Ultrasonic (ICD-10-PCS; principal; 2022-12-16 13:00)
PROC: 4A023N6 Measurement of Cardiac Sampling and Pressure, Right Heart, Percutaneous Approach (ICD-10-PCS; principal; 2022-12-16 13:00)
PROC: 06PYX3Z Removal of Infusion Device from Lower Vein, External Approach (ICD-10-PCS; 2022-12-17)
DX: T81.44XA Sepsis following a procedure, initial encounter (principal); I26.99 Other pulmonary embolism without acute cor pulmonale; E11.40 Type 2 diabetes mellitus with diabetic neuropathy, unspecified; E11.51 Type 2 diabetes mellitus with diabetic peripheral angiopathy without gangrene; E11.621 Type 2 diabetes mellitus with foot ulcer; E11.628 Type 2 diabetes mellitus with other skin complications; E78.5 Hyperlipidemia, unspecified; I10 Essential (primary) hypertension; K44.9 Diaphragmatic hernia without obstruction or gangrene; I25.10 Atherosclerotic heart disease of native coronary artery without angina pectoris; T87.43 Infection of amputation stump, right lower extremity; E11.65 Type 2 diabetes mellitus with hyperglycemia; L97.509 Non-pressure chronic ulcer of other part of unspecified foot with unspecified severity; Z79.4 Long term (current) use of insulin; Z79.84 Long term (current) use of oral hypoglycemic drugs; Z79.899 Other long term (current) drug therapy; Z86.14 Personal history of Methicillin resistant Staphylococcus aureus infection; Z87.442 Personal history of urinary calculi; Z87.891 Personal history of nicotine dependence; Z89.431 Acquired absence of right foot; Z28.21 Immunization not carried out because of patient refusal; Z79.2 Long term (current) use of antibiotics; Z88.8 Allergy status to other drugs, medicaments and biological substances
CPT/HCPCS: 37211; 71045; 80048; 80053; 80202; 82565; 84145; 85025; 85027; 85384; 85610; 85652; 85730; 86140; 87040; 94640

== ENCOUNTER 2023-07-26 16:31 | Inpatient (IN) | payer OTHER ==
[2023-07-26] MEDS ORDERED: VANCOMYCIN IV PER PHARMACY 1 EACH MISC MISCELLANE PRN (17:19)
--- NOTE | 2023-07-26 17:34 | ED ---
Fever HPI - General Chief Complaint: Fever Stated Complaint: Diabetic wounds on both feet, Shortness of breath Time Seen by Provider: 07/26/23 16:51 Source: patient, RN notes reviewed Mode of arrival: ambulatory Limitations: no limitations - History of Present Illness Initial Comments: 57-year-old male with history of diabetes, hypertension, and MRSA presenting to the ER with chief complaint of fever x 2 weeks with right foot ulceration. States he has had insurance issues and has been off of his medications for quite some time and has not been able to see his PCP. He is also reporting diarrhea and shortness of breath. Denies history of congestive heart failure or kidney issues. - Related Data Home Medications Medication Instructions Recorded Confirmed Lisinopril-Hctz 20-12.5 mg 1 tab PO DAILY 02/13/22 12/16/22 [Zestoretic 20-12.5] Omeprazole [PriLOSEC] 20 mg PO AC-BID 10/17/22 12/16/22 Acetaminophen [Tylenol] 650 mg PO Q6HR PRN 12/16/22 12/16/22 Empagliflozin [Jardiance] 25 mg PO DAILY 12/16/22 12/16/22 Glimepiride [Amaryl] 2 mg PO DAILY 12/16/22 12/16/22 Lactobacillus Rhamnosus GG 1 cap PO DAILY 12/16/22 12/16/22 [Culturelle] Melatonin 3 mg PO HS 12/16/22 12/16/22 Sennosides [Senokot] 8.6 mg PO BID PRN 12/16/22 12/16/22 Tirzepatide [Mounjaro] 5 mg SQ TH 12/16/22 12/16/22 metroNIDAZOLE 500 mg PO TID 12/16/22 12/16/22 Previous Rx's Medication Instructions Recorded ALPRAZolam [Xanax] 0.25 mg PO TID #3 tab 12/24/22 Apixaban Initiation Dose--VTE 10 mg PO BID tab 12/24/22 [Eliquis Initiation Dosing for VTE Treatment] Cefepime [Maxipime] 2 gm IVPB Q8HR 14 Days #42 each 12/24/22 HYDROcodone/APAP 7.5-325MG [[place] 1 each PO Q6HR PRN #6 tab 12/24/22 7.5-325] INSULIN ASPART (NovoLOG) [NovoLOG 0 unit SQ ACHS each 12/24/22 (formulary)] Insulin Detemir (Levemir) [Levemir] 20 unit SQ HS each 12/24/22 Ipratropium-Albuterol Nebulize 3 ml INHALATION RT-QID each 12/24/22 [Duoneb 0.5 mg-3 mg/3 ml Soln] Ondansetron [Zofran] 4 mg PO Q8HR PRN #20 tab 12/24/22 Pregabalin [Lyrica] 50 mg PO BID #6 cap 12/24/22 Vancomycin 1,750 mg IVPB Q12H 14 Days #28 each 12/24/22 traMADol HCl [Ultram] 50 mg PO TID PRN #6 tab 12/24/22 Allergies Allergy/AdvReac Type Severity Reaction Status Date / Time metformin AdvReac Nausea & Verified 07/26/23 16:39 Vomiting & Diarrhea Ekifofu-LQM-KnY Reductase AdvReac liver Verified 07/26/23 16:39 Inhibitor problems [Bxfcynh-Ywu-Gfc Reductase Inhibitor] Review of Systems ROS Statement: Those systems with pertinent positive or pertinent negative responses have been documented in the HPI. ROS Other: All systems not noted in ROS Statement are negative. Past Medical History Past Medical History: Diabetes Mellitus, GERD/Reflux, Hypertension Additional Past Medical History / Comment(s): occ. pain with swallowing at times, hiatal hernia, dry skin, hx kidney stones History of Any Multi-Drug Resistant Organisms: MRSA Date of last positivie culture/infection: 12/13/20 MDRO Source:: TOE Past Surgical History: Orthopedic Surgery Additional Past Surgical History / Comment(s): cystoscopy/stent in urethra, olga carpal tunnel, trigger finger left thumb, rt thumb surgery, shoulder surgery Past Anesthesia/Blood Transfusion Reactions: No Reported Reaction Additional Past Anesthesia/Blood Transfusion Reaction / Comment(s): dizziness Past Psychological History: No Psychological Hx Reported Smoking Status: Former smoker Past Alcohol Use History: None Reported Past Drug Use History: None Reported - Past Family History Mother Family Medical History: No Reported History General Exam Limitations: no limitations General appearance: alert, in no apparent distress Head exam: Present: atraumatic, normocephalic, normal inspection ENT exam: Present: normal exam, mucous membranes moist Neck exam: Present: normal inspection. Absent: tenderness, meningismus, lymphadenopathy Respiratory exam: Present: normal lung sounds bilaterally. Absent: respiratory distress, wheezes, rales, rhonchi, stridor Cardiovascular Exam: Present: regular rate, normal rhythm, normal heart sounds. Absent: systolic murmur, diastolic murmur, rubs, gallop, clicks GI/Abdominal exam: Present: soft, normal bowel sounds. Absent: distended, tenderness, guarding, rebound, rigid Extremities exam: Present: tenderness, pedal edema, joint swelling, calf tenderness Right Knee exam: Present: normal inspection, full ROM. Absent: tenderness, swelling Lower Leg exam: Present: full ROM, swelling (Right lower leg is erythematous with 1+ pitting edema, left leg is mildly erythematous with no pitting edema). Absent: normal inspection, tenderness Ankle exam: Present: full ROM, swelling (Left ankle is diffusely erythematous). Absent: normal inspection, tenderness Foot/Toe exam: Present: full ROM, swelling. Absent: normal inspection (First and second digits are not present due to prior amputation, there is white discharge oozing from remaining digits. There is a grade 2 ulcer on ventral aspect of right foot involving underlying ligaments and tendons.), tenderness Neurovascular tendon exam: Present: sensory deficit (Sensation is decreased on the right lower extremity however patient states that this is chronic.). Absent: pulse deficit, abnormal cap refill Neurological exam: Present: alert, oriented X3, CN II-XII intact Psychiatric exam: Present: normal affect, normal mood Skin exam: Present: warm, dry Course Vital Signs 07/26/23 07/26/23 07/26/23 16:35 17:45 18:19 Temperature 101.4 F H 102.1 F H Pulse Rate 113 H 108 H 106 H Respiratory 18 20 22 Rate Blood Pressure 140/75 129/78 137/89 O2 Sat by Pulse 99 92 L 97 Oximetry 07/26/23 18:43 Temperature 100.8 F H Pulse Rate 103 H Respiratory 22 Rate Blood Pressure 115/67 O2 Sat by Pulse 94 L Oximetry Procedures - Sepsis Sepsis Focused Exam #1 Time Sepsis Criteria Met: 17:05 Sepsis Focused Exam Complete: Yes Vital Signs & RN Notes Reviewed: Yes Skin Color: Normal for Patient Respiratory Exam: normal lung sounds Cardiovascular Exam: regular rate, normal rhythm, tachycardia Medical Decision Making - Medical Decision Making Was pt. sent in by a medical professional or institution (SARIKA Hagen, [facility], urgent care, hospital, or fci...) When possible be specific @ -No Did you speak to anyone other than the patient for history (EMS, parent, family, police, friend...)? What history was obtained from this source @ -No Did you review nursing and triage notes (agree or disagree)? Why? @ -I reviewed and agree with nursing and triage notes Were old charts reviewed (outside hosp., previous admission, EMS record, old EKG, old radiological studies, urgent care reports/EKG's, fci records)? Report findings @ -No old charts were reviewed Differential Diagnosis (chest pain, altered mental status, abdominal pain women, abdominal pain men, vaginal bleeding, weakness, fever, dyspnea, syncope, headache, dizziness, GI bleed, back pain, seizure, CVA, palpatations, mental health, musculoskeletal)? @ -Diabetic ulceration, laceration, abscess, cellulitis, CHF EKG interpreted by me (3pts min.). @ -As above X-rays interpreted by me (1pt min.). @ -Chest x-ray and right foot x-ray were negative for acute abnormality CT interpreted by me (1pt min.). @ -None done U/S interpreted by me (1pt. min.). @ -None done What testing was considered but not performed or refused? (CT, X-rays, U/S, labs)? Why? @ -None What meds were considered but not given or refused? Why? @ -None Did you discuss the management of the patient with other professionals (professionals i.e. SARIKA Hagen, [facility], lab, RT, psych nurse, social science research assistant, child psychology teacher, teacher, community cultural development officer, applications project manager)? Give summary @ -Case discussed with Dr. Puente from [facility] who accepted admission at this time for right foot grade 2 diabetic ulceration with sepsis and hyponatremia Was smoking cessation discussed for >3mins.? @ -No Was critical care preformed (if so, how long)? @ -Yes, 45 minutes Were there social determinants of health that impacted care today? How? (Homelessness, low income, unemployed, alcoholism, drug addiction, transportat ion, low edu. Level, literacy, decrease access to med. care, custodial, rehab)? @ -No Was there de-escalation of care discussed even if they declined (Discuss DNR or withdrawal of care, Hospice)? DNR status @ -No What co-morbidities impacted this encounter? (DM, HTN, Smoking, COPD, CAD, Cancer, CVA, ARF, Chemo, Hep., AIDS, mental health diagnosis, sleep apnea, morbid obesity)? @ -DM Was patient admitted / discharged? Hospital course, mention meds given and route, prescriptions, significant lab abnormalities, going to OR and other pertinent info. @ -Patient was admitted. Patient was seen and evaluated for right foot ulceration for 2 weeks with fever. On examination, patient is febrile at 101.4 and patient was tachycardic at 113 bpm. Physical examination reveals grade 2 ulceration on ventral aspect of right foot. Sepsis was identified and patient was started on IV fluids, vancomycin, and Zosyn. Lab work remarkable for white blood cell count of 24.2, sodium of 126, alk phos of 265. Chest x-ray and right foot x-ray unremarkable. EKG reveals sinus tachycardia with T wave inversions of V1 through V3. Case discussed with Dr. Puente from [facility] who accepted admission at this time for right foot grade 2 diabetic ulceration with sepsis and hyponatremia. Case discussed with Dr. Rodriguez. Undiagnosed new problem with uncertain prognosis? @ -No Drug Therapy requiring intensive monitoring for toxicity (Heparin, Nitro, Insulin, Cardizem)? @ -No Were any procedures done? @ -No Diagnosis/symptom? @ -Grade 2 diabetic ulceration of right foot with sepsis, hyponatremia Acute, or Chronic, or Acute on Chronic? @ -Acute Uncomplicated (without systemic symptoms) or Complicated (systemic symptoms)? @ -Complicated Side effects of treatment? @ -No Exacerbation, Progression, or Severe Exacerbation? @ -No Poses a threat to life or bodily function? How? (Chest pain, [place], [place], pneumonia, PE, COPD, DKA, ARF, appy, cholecystitis, CVA, Diverticulitis, Homicidal, Suicidal, threat to staff... and all critical care pts) @ -Yes, sepsis - Lab Data Result diagrams: 07/26/23 11:25 07/26/23 17:25 Lab Results 07/26/23 07/26/23 07/26/23 Range/Units 11:25 17:25 17:25 WBC 24.2 H (3.8-10.6) k/uL RBC 4.16 L (4.30-5.90) m/uL Hgb 12.2 L (13.0-17.5) gm/dL Hct 36.6 L (39.0-53.0) % MCV 87.9 (80.0-100.0) fL MCH 29.4 (25.0-35.0) pg MCHC 33.5 (31.0-37.0) g/dL RDW 12.9 (11.5-15.5) % Plt Count 406 (150-450) k/uL MPV 8.2 Neutrophils % 84 % Lymphocytes % 6 % Monocytes % 8 % Eosinophils % 0 % Basophils % 0 % Neutrophils # 20.3 H (1.3-7.7) k/uL Lymphocytes # 1.5 (1.0-4.8) k/uL Monocytes # 2.0 H (0-1.0) k/uL Eosinophils # 0.1 (0-0.7) k/uL Basophils # 0.1 (0-0.2) k/uL PT 10.9 (10.0-12.5) sec INR 1.0 (<1.2) APTT 26.7 (22.0-30.0) sec Sodium 126 L (137-145) mmol/L Potassium 3.7 (3.5-5.1) mmol/L Chloride 95 L (98-107) mmol/L Carbon Dioxide 21 L (22-30) mmol/L Anion Gap 10 mmol/L BUN 12 (9-20) mg/dL Creatinine 0.87 (0.66-1.25) mg/dL Est GFR (CKD-EPI)AfAm >90 (>60 ml/min/1.73 sqM) Est GFR (CKD-EPI)NonAf >90 (>60 ml/min/1.73 sqM) Glucose 316 H (74-99) mg/dL Plasma Lactic Acid Mike (0.7-2.0) mmol/L Calcium 9.0 (8.4-10.2) mg/dL Total Bilirubin 2.8 H (0.2-1.3) mg/dL AST 28 (17-59) U/L ALT 44 (4-49) U/L Alkaline Phosphatase 265 H (38-126) U/L Total Protein 6.5 (6.3-8.2) g/dL Albumin 3.5 (3.5-5.0) g/dL 07/26/23 Range/Units 17:25 WBC (3.8-10.6) k/uL RBC (4.30-5.90) m/uL Hgb (13.0-17.5) gm/dL Hct (39.0-53.0) % MCV (80.0-100.0) fL MCH (25.0-35.0) pg MCHC (31.0-37.0) g/dL RDW (11.5-15.5) % Plt Count (150-450) k/uL MPV Neutrophils % % Lymphocytes % % Monocytes % % Eosinophils % % Basophils % % Neutrophils # (1.3-7.7) k/uL Lymphocytes # (1.0-4.8) k/uL Monocytes # (0-1.0) k/uL Eosinophils # (0-0.7) k/uL Basophils # (0-0.2) k/uL PT (10.0-12.5) sec INR (<1.2) APTT (22.0-30.0) sec Sodium (137-145) mmol/L Potassium (3.5-5.1) mmol/L Chloride (98-107) mmol/L Carbon Dioxide (22-30) mmol/L Anion Gap mmol/L BUN (9-20) mg/dL Creatinine (0.66-1.25) mg/dL Est GFR (CKD-EPI)AfAm (>60 ml/min/1.73 sqM) Est GFR (CKD-EPI)NonAf (>60 ml/min/1.73 sqM) Glucose (74-99) mg/dL Plasma Lactic Acid Mike 1.3 (0.7-2.0) mmol/L Calcium (8.4-10.2) mg/dL Total Bilirubin (0.2-1.3) mg/dL AST (17-59) U/L ALT (4-49) U/L Alkaline Phosphatase (38-126) U/L Total Protein (6.3-8.2) g/dL Albumin (3.5-5.0) g/dL - EKG Data -: EKG Interpreted by Tx EKG Comments: EKG reveals sinus tachycardia with inverted T waves in V1 through V3. Ventricular rate 108 bpm, NC interval 148, QRS duration 98, QT/QTc 346/409 Disposition Clinical Impression: Diabetic ulcer of right foot, Sepsis, Acute hyponatremia Disposition: ADMITTED IP TO THIS HOSP Condition: Stable Referrals: Azucena Coelho, PAC [Family Provider] - 1-2 days Time of Disposition: 19:09
[2023-07-26] MEDS: SODIUM CHLORIDE 0.9% 500 ML 500 ML IV SCH (17:41)
[2023-07-26] MEDS: PIPERACILLIN-TAZOBACTAM 3.375 GM in SODIUM CHLORIDE 0.9% 100 ML IVPB STA (17:44)
[2023-07-26] MEDS: SODIUM CHLORIDE 0.9% 1,000 ML IV SCH (17:48)
[2023-07-26 17:59] LABS: Basophils # (A) 0.1 k/uL (0-0.2); Basophils % (A) 0 %; Eosinophils # (A) 0.1 k/uL (0-0.7); Eosinophils % (A) 0 %; HCT 36.6 % (39.0-53.0); HGB 12.2 gm/dL (13.0-17.5); Lymphocytes # (A) 1.5 k/uL (1.0-4.8); Lymphocytes % (A) 6 %; MCH 29.4 pg (25.0-35.0); MCHC 33.5 g/dL (31.0-37.0); MCV 87.9 fL (80.0-100.0); Mean Platelet Volume 8.2; Monocytes % (A) 8 %; Neutrophils # (A) 20.3 k/uL (1.3-7.7); Neutrophils % (A) 84 %; Platelet Count 406 k/uL (150-450); RBC 4.16 m/uL (4.30-5.90); RDW 12.9 % (11.5-15.5); WBC 24.2 k/uL (3.8-10.6)
[2023-07-26 18:08] LABS: Partial Thromboplastin Time 26.7 sec (22.0-30.0); Prothrombin Time 10.9 sec (10.0-12.5)
[2023-07-26 18:17] LABS: ALT 44 U/L (4-49); AST 28 U/L (17-59); African American GFR (CKD) >90 (>60 ml/min/1.73 sqM); Albumin 3.5 g/dL (3.5-5.0); Alkaline Phosphatase 265 U/L (38-126); Anion Gap 10 mmol/L; Blood Urea Nitrogen 12 mg/dL (9-20); Carbon Dioxide 21 mmol/L (22-30); Chloride 95 mmol/L (98-107); Glucose 316 mg/dL (74-99); Non-African American GFR(CKD) >90 (>60 ml/min/1.73 sqM); Potassium 3.7 mmol/L (3.5-5.1); Sodium 126 mmol/L (137-145); Total Bilirubin 2.8 mg/dL (0.2-1.3); Total Protein 6.5 g/dL (6.3-8.2)
[2023-07-26] MEDS: ACETAMINOPHEN TAB 500 MG TAB PO STA (18:18)
--- NOTE | 2023-07-26 18:39 | XR ---
EXAMINATION TYPE: XR chest 2V DATE OF EXAM: 07/26/2023 6:35 PM CLINICAL INDICATION:Male, 57 years old with history of Shortness of breath; [facility] COMPARISON: Chest radiographs from 12/20/2022 TECHNIQUE: XR chest 2V Frontal and lateral views of the chest. FINDINGS: Lungs/Pleura: There is no evidence of pleural effusion, focal consolidation, or pneumothorax. Pulmonary vascularity: Unremarkable. Heart/mediastinum: Cardiomediastinal silhouette is unremarkable. Musculoskeletal: No acute osseous pathology. IMPRESSION: No acute cardiopulmonary disease/process.
--- NOTE | 2023-07-26 18:40 | XR ---
EXAMINATION TYPE: XR foot complete RT DATE OF EXAM: 07/26/2023 6:35 PM CLINICAL INDICATION:Male, 57 years old with history of right foot ulceration; [facility] COMPARISON: 10/17/2022 TECHNIQUE: XR foot complete RT examined in the AP, oblique, and lateral projections. FINDINGS/IMPRESSION: Postsurgical changes of the foot with ulcer present. No obvious osseous erosion changes at this time involving the first digit. The second digit has a lucency projecting over on multiple views limiting evaluation. No evidence for acute fracture.
[2023-07-26] MEDS: VANCOMYCIN 1,750 MG in SODIUM CHLORIDE 0.9% 500 ML 500 ML IVPB STA (18:49)
[2023-07-26] MEDS ORDERED: NALOXONE 0.4 MG/ML 1 ML VIAL IV PRN (18:56)
--- NOTE | 2023-07-27 01:40 | P.HPIM ---
History of Present Illness H&P Date: 07/26/23 Patient is a 57-year-old male with a PMH of type II DM status post multiple right toe amputations, hypertension, and CAD who presents to the emergency room with complaints of right foot wound. Patient notes that he initially noticed mild redness and swelling of the right foot roughly a week ago which gradually progressed. Notes that his insurance had lapsed and he thereby had a difficult time obtaining his diabetes medications and has not seen his PCP for quite some time. He does report difficulty ambulating due to his right foot symptoms. Has been experiencing fever over the last few days. Denied experiencing chest discomfort, shortness of breath, cough, nausea, vomiting, abdominal pain, diarrhea. Right foot x-ray revealed findings concerning for osteomyelitis with a chest x- ray unremarkable. EKG revealed sinus tachycardia at 108 bpm with poor R wave progression, T wave inversions diffusely, with an incomplete right bundle branch block as reviewed by me. Laboratory evaluation was remarkable for leukocytosis of 24.2, sodium 126, chloride 95, glucose 316, with total bilirubin 2.8. ED documentation reviewed and case discussed with ED provider. Review of systems: Pertinent positives and negatives as discussed in HPI, a complete review of systems was performed and all other systems are negative. Physical examination: Vital signs reviewed General: non toxic, no distress, appears at stated age, obese Derm: Right foot plantar surface 3 cm unstageable ulcer noted with surrounding erythema and swelling extending up to proximal ankle, warm Head: atraumatic, normocephalic, symmetric Eyes: EOMI, no lid lag, anicteric sclera, pupils equal round reactive to light ENT: Nose and ears atraumatic Neck: No cervical lymphadenopathy, trachea midline, supple Mouth: no lip lesion, mucus membranes moist Cardiovascular: S1S2 reg, no murmur, positive dorsalis pedis pulse bilateral, no edema Lungs: CTA bilateral, no rhonchi, no rales, no accessory muscle use Abdominal: soft, nontender to palpation, no guarding Ext: muscle strength 5 out of 5 in all 4 extremities grossly, no gross muscle atrophy, no contractures, Neuro: CN II-XI grossly intact, no gross focal neuro deficits Psych: Alert, oriented, appropriate affect Assessment: Right foot cellulitis, possible osteomyelitis Hypochloremic hyponatremia Elevated total bilirubin Chronic conditions: Hypertension, CAD Imaging: Right foot x-ray revealed findings concerning for osteomyelitis with a chest x- ray unremarkable. EKG revealed sinus tachycardia at 108 bpm with poor R wave progression, T wave inversions diffusely, with an incomplete right bundle branch block as reviewed by me. Data Review: Laboratory evaluation was remarkable for leukocytosis of 24.2, sodium 126, chloride 95, glucose 316, with total bilirubin 2.8. Plan: Continue with vancomycin and Zosyn at this time Vascular surgery and infectious disease consult Follow-up blood cultures Trend LFTs for now and consider RUQ ultrasound if T. bili does not improve Insulin sliding scale and blood glucose monitoring Resume home medications once reconciled DVT prophylaxis: Lovenox subcu The patient is admitted with an anticipated greater than 2 midnight stay for evaluation of right foot cellulitis CODE STATUS: Full Code Discussed with: Patient Anticipated discharge place: Home Past Medical History Past Medical History: Diabetes Mellitus, GERD/Reflux, Hypertension Additional Past Medical History / Comment(s): occ. pain with swallowing at times, hiatal hernia, dry skin, hx kidney stones History of Any Multi-Drug Resistant Organisms: MRSA Date of last positivie culture/infection: 12/13/20 MDRO Source:: TOE Past Surgical History: Orthopedic Surgery Additional Past Surgical History / Comment(s): cystoscopy/stent in urethra, olga carpal tunnel, trigger finger left thumb, rt thumb surgery, shoulder surgery Past Anesthesia/Blood Transfusion Reactions: No Reported Reaction Additional Past Anesthesia/Blood Transfusion Reaction / Comment(s): dizziness Past Psychological History: No Psychological Hx Reported Smoking Status: Former smoker Past Alcohol Use History: None Reported Past Drug Use History: None Reported - Past Family History Mother Family Medical History: Hyperlipidemia Medications and Allergies Home Medications Medication Instructions Recorded Confirmed Type No Known Home Medications 07/26/23 07/26/23 History Allergies Allergy/AdvReac Type Severity Reaction Status Date / Time metformin AdvReac Nausea & Verified 07/26/23 19:38 Vomiting & Diarrhea Dmkxwns-GXM-MbU Reductase AdvReac liver Verified 07/26/23 19:38 Inhibitor problems [Gvdzezi-Trt-Jut Reductase Inhibitor] Physical Exam Vitals: Vital Signs Temp Pulse Resp BP Pulse Ox 07/26/23 19:15 100.0 F H 101 H 20 111/63 99 07/26/23 18:43 100.8 F H 103 H 22 115/67 94 L 07/26/23 18:19 106 H 22 137/89 97 07/26/23 17:45 102.1 F H 108 H 20 129/78 92 L 07/26/23 16:35 101.4 F H 113 H 18 140/75 99 Intake and Output 07/26/23 07/26/23 07/27/23 14:59 22:59 06:59 Other: Weight 99.79 kg Results CBC & Chem 7: 07/26/23 11:25 07/26/23 17:25 Labs: Abnormal Lab Results - Last 24 Hours (Table) 07/26/23 07/26/23 Range/Units 11:25 17:25 WBC 24.2 H (3.8-10.6) k/uL RBC 4.16 L (4.30-5.90) m/uL Hgb 12.2 L (13.0-17.5) gm/dL Hct 36.6 L (39.0-53.0) % Neutrophils # 20.3 H (1.3-7.7) k/uL Monocytes # 2.0 H (0-1.0) k/uL Sodium 126 L (137-145) mmol/L Chloride 95 L (98-107) mmol/L Carbon Dioxide 21 L (22-30) mmol/L Glucose 316 H (74-99) mg/dL Total Bilirubin 2.8 H (0.2-1.3) mg/dL Alkaline Phosphatase 265 H (38-126) U/L
[2023-07-27] MEDS: PIPERACILLIN-TAZOBACTAM 3.375 GM in SODIUM CHLORIDE 0.9% 100 ML IVPB SCH (03:25)
[2023-07-27 04:13] LABS: Appearance,Urine Clear (Clear); Bilirubin,Urine Negative (Negative); Blood,Urine Negative (Negative); Color,Urine Light Yellow; Glucose,Urine (UA) 2+ (Negative); Ketones,Urine Negative (Negative); Leukocyte Esterase,Urine Negative (Negative); Nitrite,Urine Negative (Negative); PH, Urine 6.5 (5.0-8.0); Protein,Urine Negative (Negative); Specific Gravity,Urine 1.008 (1.001-1.035); Urobilinogen,Urine <2.0 mg/dL (<2.0)
[2023-07-27 04:25] LABS: ALT 35 U/L (4-49); AST 23 U/L (17-59); African American GFR (CKD) >90 (>60 ml/min/1.73 sqM); Alkaline Phosphatase 224 U/L (38-126); Blood Urea Nitrogen 12 mg/dL (9-20); Calcium 8.7 mg/dL (8.4-10.2); Carbon Dioxide 15 mmol/L (22-30); Chloride 105 mmol/L (98-107); Glucose 282 mg/dL (74-99); Non-African American GFR(CKD) >90 (>60 ml/min/1.73 sqM); Total Bilirubin 2.4 mg/dL (0.2-1.3)
[2023-07-27 04:36] LABS: Anion Gap 10 mmol/L; Potassium 3.9 mmol/L (3.5-5.1); Sodium 130 mmol/L (137-145)
[2023-07-27 05:23] LABS: HGB 12.7 gm/dL (13.0-17.5); MCH 29.5 pg (25.0-35.0); MCHC 31.8 g/dL (31.0-37.0); MCV 92.7 fL (80.0-100.0); Mean Platelet Volume 7.8; Platelet Count 426 k/uL (150-450); RBC 4.32 m/uL (4.30-5.90); RDW 13.2 % (11.5-15.5); WBC 22.4 k/uL (3.8-10.6)
[2023-07-27] MEDS: ENOXAPARIN 40 MG/0.4 ML SYRINGE SQ SCH (09:06)
[2023-07-27] MEDS: ACETAMINOPHEN TAB 325 MG TAB PO PRN (09:07)
[2023-07-27] MEDS: VANCOMYCIN 1,750 MG in SODIUM CHLORIDE 0.9% 500 ML 500 ML IVPB SCH ×2 (11:32→22:48)
--- NOTE | 2023-07-27 14:02 | P.GSCN ---
History of Present Illness History of present illness: 57-year-old gentleman history of diabetes hypertension this patient had a right foot big toe and second toe amputation done in the past patient has developed callus on the plantar aspect of the right foot with marked tenderness and fluctuation noted suggestive of a infected callus patient also has some redness on the dorsal aspect of the foot tenderness present no fever or chills white ce ll count is 24.2 thousand x-ray of the foot shows no evidence of osteo Patient was seen in the emergency room neck is supple no bruit appreciated Chest is clear. Second sound present good entry both lungs Abdomen soft nontender Vascular femorals are 1+ PT DP not palpable patient is a marked tenderness and redness noted to the dorsal aspect of foot with infected callus suggestive of abscess patient IV antibiotic area under care of infectious disease plan is I&D and debridement we will keep the patient n.p.o. after midnight we will schedule tomorrow for I&D and debridement and excision of the infected callus risk and complication discussed Past Medical History Past Medical History: Diabetes Mellitus, GERD/Reflux, Hypertension Additional Past Medical History / Comment(s): occ. pain with swallowing at times, hiatal hernia, dry skin, hx kidney stones History of Any Multi-Drug Resistant Organisms: MRSA Year Discovered:: 12/13/20 MDRO Source:: TOE Past Surgical History: Orthopedic Surgery Additional Past Surgical History / Comment(s): cystoscopy/stent in urethra, olga carpal tunnel, trigger finger left thumb, rt thumb surgery, shoulder surgery Past Anesthesia/Blood Transfusion Reactions: No Reported Reaction Additional Past Anesthesia/Blood Transfusion Reaction / Comm: dizziness Past Psychological History: No Psychological Hx Reported Smoking Status: Former smoker Past Alcohol Use History: None Reported Past Drug Use History: None Reported - Past Family History Mother Family Medical History: Hyperlipidemia Medications and Allergies Home Medications Medication Instructions Recorded Confirmed Type No Known Home Medications 07/26/23 07/26/23 History Allergies Allergy/AdvReac Type Severity Reaction Status Date / Time metformin AdvReac Nausea & Verified 07/26/23 19:38 Vomiting & Diarrhea Nsessid-XRO-OqJ Reductase AdvReac liver Verified 07/26/23 19:38 Inhibitor problems [Rgtaulb-Gww-Mho Reductase Inhibitor] Surgical - Exam Vital Signs Temp Pulse Resp BP Pulse Ox 101.4 F H 113 H 18 140/75 99 07/26/23 16:35 07/26/23 16:35 07/26/23 16:35 07/26/23 16:35 07/26/23 16:35 Results - Labs 07/27/23 04:20 07/27/23 03:29 Abnormal Lab Results - Last 24 Hours (Table) 07/26/23 07/26/23 07/27/23 Range/Units 11:25 17:25 03:29 WBC 24.2 H (3.8-10.6) k/uL RBC 4.16 L (4.30-5.90) m/uL Hgb 12.2 L (13.0-17.5) gm/dL Hct 36.6 L (39.0-53.0) % Neutrophils # 20.3 H (1.3-7.7) k/uL Monocytes # 2.0 H (0-1.0) k/uL Sodium 126 L 130 L (137-145) mmol/L Chloride 95 L (98-107) mmol/L Carbon Dioxide 21 L 15 L (22-30) mmol/L Glucose 316 H 282 H (74-99) mg/dL Total Bilirubin 2.8 H 2.4 H (0.2-1.3) mg/dL Alkaline Phosphatase 265 H 224 H (38-126) U/L Total Protein 6.0 L (6.3-8.2) g/dL Albumin 3.0 L (3.5-5.0) g/dL Urine Glucose (UA) (Negative) 07/27/23 07/27/23 Range/Units 04:00 04:20 WBC 22.4 H (3.8-10.6) k/uL RBC (4.30-5.90) m/uL Hgb 12.7 L (13.0-17.5) gm/dL Hct (39.0-53.0) % Neutrophils # (1.3-7.7) k/uL Monocytes # (0-1.0) k/uL Sodium (137-145) mmol/L Chloride (98-107) mmol/L Carbon Dioxide (22-30) mmol/L Glucose (74-99) mg/dL Total Bilirubin (0.2-1.3) mg/dL Alkaline Phosphatase (38-126) U/L Total Protein (6.3-8.2) g/dL Albumin (3.5-5.0) g/dL Urine Glucose (UA) 2+ H (Negative) Diabetes panel 07/26/23 07/27/23 Range/Units 17:25 03:29 Sodium 126 L 130 L (137-145) mmol/L Potassium 3.7 3.9 (3.5-5.1) mmol/L Chloride 95 L 105 (98-107) mmol/L Carbon Dioxide 21 L 15 L (22-30) mmol/L BUN 12 12 (9-20) mg/dL Creatinine 0.87 0.71 (0.66-1.25) mg/dL Glucose 316 H 282 H (74-99) mg/dL Calcium 9.0 8.7 (8.4-10.2) mg/dL AST 28 23 (17-59) U/L ALT 44 35 (4-49) U/L Alkaline Phosphatase 265 H 224 H (38-126) U/L Total Protein 6.5 6.0 L (6.3-8.2) g/dL Albumin 3.5 3.0 L (3.5-5.0) g/dL Calcium panel 07/26/23 07/27/23 Range/Units 17:25 03:29 Calcium 9.0 8.7 (8.4-10.2) mg/dL Albumin 3.5 3.0 L (3.5-5.0) g/dL Pituitary panel 07/26/23 07/27/23 Range/Units 17:25 03:29 Sodium 126 L 130 L (137-145) mmol/L Potassium 3.7 3.9 (3.5-5.1) mmol/L Chloride 95 L 105 (98-107) mmol/L Carbon Dioxide 21 L 15 L (22-30) mmol/L BUN 12 12 (9-20) mg/dL Creatinine 0.87 0.71 (0.66-1.25) mg/dL Glucose 316 H 282 H (74-99) mg/dL Calcium 9.0 8.7 (8.4-10.2) mg/dL Adrenal panel 07/26/23 07/27/23 Range/Units 17:25 03:29 Sodium 126 L 130 L (137-145) mmol/L Potassium 3.7 3.9 (3.5-5.1) mmol/L Chloride 95 L 105 (98-107) mmol/L Carbon Dioxide 21 L 15 L (22-30) mmol/L BUN 12 12 (9-20) mg/dL Creatinine 0.87 0.71 (0.66-1.25) mg/dL Glucose 316 H 282 H (74-99) mg/dL Calcium 9.0 8.7 (8.4-10.2) mg/dL Total Bilirubin 2.8 H 2.4 H (0.2-1.3) mg/dL AST 28 23 (17-59) U/L ALT 44 35 (4-49) U/L Alkaline Phosphatase 265 H 224 H (38-126) U/L Total Protein 6.5 6.0 L (6.3-8.2) g/dL Albumin 3.5 3.0 L (3.5-5.0) g/dL
[2023-07-27] MEDS ORDERED: DEXTROSE 50% SYRINGE 50 ML IVP PRN ×2 (15:24)
--- NOTE | 2023-07-27 15:33 | P.PN ---
Subjective Progress Note Date: 07/27/23 Hospital Course: 57-year-old male with history of type 2 diabetes status post previous right toe amputation, hypertension, CAD, PE, diabetic neuropathy presenting with worsening right foot wound with drainage. Right foot x-ray revealed findings concerning for osteomyelitis with a chest x-ray unremarkable. EKG revealed sinus tachycardia at 108 bpm with poor R wave progression, T wave inversions diffusely, with an incomplete right bundle branch block. Laboratory evaluation was remarkable for leukocytosis of 24.2, sodium 126, chloride 95, glucose 316, with total bilirubin 2.8. Patient started on IV antibiotics. ID consulted. Blood cultures positive for MRSA. Vascular surgery consulted. Subjective: Patient seen and examined at bedside. No acute events overnight. Pertinent positives and negatives as discussed above, a complete review of systems was performed and all other systems are negative. Vitals Signs Reviewed. General: Nontoxic, no distress, appears at stated age Derm: Right foot plantar surface 3 cm unstageable ulcer with purulent drainage noted with surrounding erythema and swelling extending up to proximal ankle, warm Head: Atraumatic, normocephalic, symmetric Eyes: EOMI, no lid lag, anicteric sclera Mouth: No lip lesion, mucus membranes moist Cardiovascular: S1S2 reg, no murmur Lungs: CTA bilateral, no rhonchi, no rales, no accessory muscle use Abdominal: Soft, nontender to palpation, no guarding, no appreciable organomegaly Ext: Right toe amputations Neuro: CN II-XI grossly intact, no focal neuro deficits Psych: Alert, oriented, appropriate affect Data Reviewed Today: Pertinent Labs: WBC 22.4, hemoglobin 12.7, sodium 130, bicarb 15, creatinine 0.71, anion gap 10, glucose 282, total bili 2.4, ALP 224 Imaging: No new imaging Assessment and Plan: Sepsis secondary to infected diabetic foot ulcer MRSA bacteremia Poorly controlled diabetes, hyperglycemia Hyperbilirubinemia Elevated ALP Mild hyponatremia Metabolic acidosis, non-anion gap -Pain control with oral Tylenol as needed, IV morphine as needed, monitor for sedation -ID following, continued on IV vancomycin, monitor for renal toxicity, ID also started IV Unasyn 3 g every 6 hours -Repeat blood cultures ordered -Echocardiogram ordered -Started on sliding scale insulin, monitor for hypoglycemia -Vascular surgery note reviewed, pending I&D tomorrow -Elevated ALP likely in the setting of foot infection -Repeat BMP tomorrow -No right upper quadrant pain Chronic: History of PE CAD Hypertension Dyslipidemia -Patient is not on any medication due to insurance issues DVT ppx: Lovenox Code status: Full code Anticipated discharge place: Pending clinical course Anticipated discharge time: Pending clinical course Objective - Vital Signs Vital signs: Vital Signs Temp 97.4 F L 07/26/23 20:00 Pulse 93 07/27/23 07:15 Resp 18 07/27/23 07:15 BP 123/73 07/27/23 07:15 Pulse Ox 94 L 07/27/23 07:15 FiO2 Intake & Output 07/26/23 07/27/23 07/27/23 18:59 06:59 18:59 Weight 99.79 kg - Labs CBC & Chem 7: 07/27/23 04:20 07/27/23 03:29 Labs: Abnormal Lab Results - Last 24 Hours (Table) 07/26/23 07/26/23 07/27/23 Range/Units 11:25 17:25 03:29 WBC 24.2 H (3.8-10.6) k/uL RBC 4.16 L (4.30-5.90) m/uL Hgb 12.2 L (13.0-17.5) gm/dL Hct 36.6 L (39.0-53.0) % Neutrophils # 20.3 H (1.3-7.7) k/uL Monocytes # 2.0 H (0-1.0) k/uL Sodium 126 L 130 L (137-145) mmol/L Chloride 95 L (98-107) mmol/L Carbon Dioxide 21 L 15 L (22-30) mmol/L Glucose 316 H 282 H (74-99) mg/dL Total Bilirubin 2.8 H 2.4 H (0.2-1.3) mg/dL Alkaline Phosphatase 265 H 224 H (38-126) U/L Total Protein 6.0 L (6.3-8.2) g/dL Albumin 3.0 L (3.5-5.0) g/dL Urine Glucose (UA) (Negative) 07/27/23 07/27/23 Range/Units 04:00 04:20 WBC 22.4 H (3.8-10.6) k/uL RBC (4.30-5.90) m/uL Hgb 12.7 L (13.0-17.5) gm/dL Hct (39.0-53.0) % Neutrophils # (1.3-7.7) k/uL Monocytes # (0-1.0) k/uL Sodium (137-145) mmol/L Chloride (98-107) mmol/L Carbon Dioxide (22-30) mmol/L Glucose (74-99) mg/dL Total Bilirubin (0.2-1.3) mg/dL Alkaline Phosphatase (38-126) U/L Total Protein (6.3-8.2) g/dL Albumin (3.5-5.0) g/dL Urine Glucose (UA) 2+ H (Negative) Microbiology - Last 24 Hours (Table) 07/26/23 17:10 Blood Culture Gram Stain - Preliminary Blood Blood Culture - Preliminary Molecular ID 07/26/23 17:25 Blood Culture Gram Stain - Preliminary Blood
[2023-07-27] MEDS: AMPICILLIN-SULBACTAM 3 GM in SODIUM CHLORIDE 0.9% 100 ML IVPB SCH (16:15)
[2023-07-27] MEDS: HYDROmorphone 1 MG/ML 1 ML SYRINGE IVP PRN (16:46)
[2023-07-27 16:58] LABS: Glucose,Whole Blood 245 mg/dL (70-110)
[2023-07-27] MEDS: INSULIN ASPART (NovoLOG) 100 UNIT/ML VIAL SQ SCH (18:08)
[2023-07-27 21:17] LABS: Glucose,Whole Blood 331 mg/dL (70-110)
--- NOTE | 2023-07-27 22:02 | P.CONS ---
History of Present Illness - Reason for Consult Consult date: 07/27/23 - History of Present Illness Patient is a 57-year-old male with a past medical history significant for diabetes mellitus reflux hypertension patient did have a history of left diabetic foot infection requiring amputation of the toes now presenting to the hospital with worsening pain swelling redness to the left foot area that apparently has been getting worse for couple of weeks now patient denies any history of any trauma has been complaining of increasing pain over the last few weeks describing the pain to be sharp almost 10 out of 10 with associated swelling redness and did have some drainage from the wound patient did have some chills and fever at home on arrival to the ER the patient was febrile with a temperature of 101.4 F patient was tachycardic not hypotensive or hypoxic and no need for supplemental oxygen patient did have a white count of 24.2 creatinine has been normal liver isms are normal urine has been negative patient did have a chest x-ray no acute cardiopulmonary disease process foot x-ray postsurgical changes of the foot with ulcer no obvious bony erosion changes no acute fracture patient was started on vancomycin and Zosyn infectious disease was consulted for further management of antibiotic therapy Past Medical History Past Medical History: Diabetes Mellitus, GERD/Reflux, Hypertension Additional Past Medical History / Comment(s): occ. pain with swallowing at times, hiatal hernia, dry skin, hx kidney stones History of Any Multi-Drug Resistant Organisms: MRSA Year Discovered:: 12/13/20 MDRO Source:: TOE Past Surgical History: Orthopedic Surgery Additional Past Surgical History / Comment(s): cystoscopy/stent in urethra, olga carpal tunnel, trigger finger left thumb, rt thumb surgery, shoulder surgery Past Anesthesia/Blood Transfusion Reactions: No Reported Reaction Additional Past Anesthesia/Blood Transfusion Reaction / Comm: dizziness Past Psychological History: No Psychological Hx Reported Smoking Status: Former smoker Past Alcohol Use History: None Reported Past Drug Use History: None Reported - Past Family History Mother Family Medical History: Hyperlipidemia Father Family Medical History: Diabetes Mellitus Medications and Allergies Home Medications Medication Instructions Recorded Confirmed Type No Known Home Medications 07/26/23 07/26/23 History Allergies Allergy/AdvReac Type Severity Reaction Status Date / Time metformin AdvReac Nausea & Verified 07/28/23 15:16 Vomiting & Diarrhea Qserhjm-UOM-PbL Reductase AdvReac liver Verified 07/28/23 15:16 Inhibitor problems [Mqpvjmw-Hjz-Vug Reductase Inhibitor] Physical Exam Vitals: Vital Signs Temp Pulse Resp BP Pulse Ox 07/27/23 07:15 93 18 123/73 94 L 07/27/23 06:37 92 18 142/79 100 07/27/23 02:00 75 18 127/80 96 07/26/23 20:00 97.4 F L 86 16 104/67 97 07/26/23 19:15 100.0 F H 101 H 20 111/63 99 07/26/23 18:43 100.8 F H 103 H 22 115/67 94 L 07/26/23 18:19 106 H 22 137/89 97 07/26/23 17:45 102.1 F H 108 H 20 129/78 92 L 07/26/23 16:35 101.4 F H 113 H 18 140/75 99 Intake and Output 07/26/23 07/27/23 07/27/23 22:59 06:59 14:59 Other: Weight 99.79 kg Results CBC & Chem 7: 07/28/23 08:54 07/28/23 08:54 Labs: Abnormal Lab Results - Last 24 Hours (Table) 07/26/23 07/26/23 07/27/23 Range/Units 11:25 17:25 03:29 WBC 24.2 H (3.8-10.6) k/uL RBC 4.16 L (4.30-5.90) m/uL Hgb 12.2 L (13.0-17.5) gm/dL Hct 36.6 L (39.0-53.0) % Neutrophils # 20.3 H (1.3-7.7) k/uL Monocytes # 2.0 H (0-1.0) k/uL Sodium 126 L 130 L (137-145) mmol/L Chloride 95 L (98-107) mmol/L Carbon Dioxide 21 L 15 L (22-30) mmol/L Glucose 316 H 282 H (74-99) mg/dL Total Bilirubin 2.8 H 2.4 H (0.2-1.3) mg/dL Alkaline Phosphatase 265 H 224 H (38-126) U/L Total Protein 6.0 L (6.3-8.2) g/dL Albumin 3.0 L (3.5-5.0) g/dL Urine Glucose (UA) (Negative) 07/27/23 07/27/23 Range/Units 04:00 04:20 WBC 22.4 H (3.8-10.6) k/uL RBC (4.30-5.90) m/uL Hgb 12.7 L (13.0-17.5) gm/dL Hct (39.0-53.0) % Neutrophils # (1.3-7.7) k/uL Monocytes # (0-1.0) k/uL Sodium (137-145) mmol/L Chloride (98-107) mmol/L Carbon Dioxide (22-30) mmol/L Glucose (74-99) mg/dL Total Bilirubin (0.2-1.3) mg/dL Alkaline Phosphatase (38-126) U/L Total Protein (6.3-8.2) g/dL Albumin (3.5-5.0) g/dL Urine Glucose (UA) 2+ H (Negative) Assessment and Plan Plan: 1patient presented hospital with sepsis in this patient who did have fever tachycardia elevated white count source and left diabetic foot infection concerning for underlying abscess infected wound and will need to cover for the polymicrobial marion associated with diabetic foot infection 2-patient benefit from surgical drainage and deep cultureCase was discussed wit h the vascular surgeon planning for surgery tomorrow 3-we will continue with the vancomycin however switch Zosyn to Unasyn to decrease risk of nephrotoxicity 4-we will check inflammatory markers We will follow on clinical condition and cultures to further adjust medication if needed Thank you for this consultation we will follow the patient along with you Dictation was produced using [employer] dictation software. please excuse any grammatical, word or spelling errors. Time with Patient: Greater than 30
[2023-07-28 06:15] LABS: Glucose,Whole Blood 204 mg/dL (70-110)
[2023-07-28 09:46] LABS: Basophils % (A) 0 %; Eosinophils # (A) 0.1 k/uL (0-0.7); Eosinophils % (A) 1 %; HCT 34.6 % (39.0-53.0); HGB 10.9 gm/dL (13.0-17.5); Lymphocytes # (A) 1.5 k/uL (1.0-4.8); Lymphocytes % (A) 9 %; MCH 28.8 pg (25.0-35.0); MCHC 31.5 g/dL (31.0-37.0); MCV 91.3 fL (80.0-100.0); Mean Platelet Volume 7.5; Monocytes # (A) 1.1 k/uL (0-1.0); Monocytes % (A) 6 %; Neutrophils # (A) 14.6 k/uL (1.3-7.7); Neutrophils % (A) 83 %; Platelet Count 458 k/uL (150-450); RBC 3.79 m/uL (4.30-5.90); RDW 13.4 % (11.5-15.5); WBC 17.5 k/uL (3.8-10.6)
--- NOTE | 2023-07-28 11:08 | P.PN ---
Subjective Progress Note Date: 07/28/23 Hospital Course: 57-year-old male with history of type 2 diabetes status post previous right toe amputation, hypertension, CAD, PE, diabetic neuropathy presenting with worsening right foot wound with drainage. Right foot x-ray revealed findings concerning for osteomyelitis with a chest x-ray unremarkable. EKG revealed sinus tachycardia at 108 bpm with poor R wave progression, T wave inversions diffusely, with an incomplete right bundle branch block. Laboratory evaluation was remarkable for leukocytosis of 24.2, sodium 126, chloride 95, glucose 316, with total bilirubin 2.8. Patient started on IV antibiotics. ID consulted. Blood cultures positive for MRSA. Vascular surgery consulted. Pending I&D. Subjective: Patient seen and examined at bedside. No acute events overnight. Frustrated about insurance. Pertinent positives and negatives as discussed above, a complete review of systems was performed and all other systems are negative. Vitals Signs Reviewed. General: Nontoxic, no distress, appears at stated age Derm: Right foot plantar surface 3 cm unstageable ulcer with purulent drainage noted with surrounding erythema and swelling extending up to proximal ankle, wa rm Head: Atraumatic, normocephalic, symmetric Eyes: EOMI, no lid lag, anicteric sclera Mouth: No lip lesion, mucus membranes moist Cardiovascular: S1S2 reg, no murmur Lungs: CTA bilateral, no rhonchi, no rales, no accessory muscle use Abdominal: Soft, nontender to palpation, no guarding, no appreciable organomegaly Ext: Right toe amputations Neuro: CN II-XI grossly intact, no focal neuro deficits Psych: Alert, oriented, appropriate affect Data Reviewed Today: Pertinent Labs: WBC 17.5, hemoglobin 10.9, platelet 458, blood sugars range between 204 to 331, BMP pending, will be reviewed when available. Imaging: No new imaging Assessment and Plan: Patient is severely ill, needs close monitoring. Prognosis guarded Sepsis secondary to infected diabetic foot ulcer MRSA bacteremia Poorly controlled diabetes, hyperglycemia Hyperbilirubinemia Elevated ALP Mild hyponatremia Metabolic acidosis, non-anion gap -Pain control with oral Tylenol as needed, IV morphine as needed, monitor for sedation -ID following, continued on IV vancomycin, monitor for renal toxicity, ID also started IV Unasyn 3 g every 6 hours -Repeat blood cultures pending -Echocardiogram pending -Started on sliding scale insulin, monitor for hypoglycemia -Also started on Levemir 10 units -Vascular surgery following, pending I&D today -Elevated ALP likely in the setting of foot infection -Repeat CMP pending for today -No right upper quadrant pain Chronic: History of PE CAD Hypertension Dyslipidemia -Patient is not on any medication due to insurance issues DVT ppx: Lovenox Code status: Full code Anticipated discharge place: Pending clinical course Anticipated discharge time: Pending clinical course Objective - Vital Signs Vital signs: Vital Signs Temp 99.4 F 07/28/23 08:00 Pulse 92 07/28/23 08:00 Resp 16 07/28/23 08:00 BP 115/77 07/28/23 08:00 Pulse Ox 100 07/28/23 08:00 FiO2 Intake & Output 07/27/23 07/28/23 07/28/23 18:59 06:59 18:59 Weight 99.79 kg Other: Voiding Method Toilet Toilet # Voids 2 - Labs CBC & Chem 7: 07/28/23 08:54 07/27/23 03:29 Labs: Abnormal Lab Results - Last 24 Hours (Table) 07/27/23 07/27/23 07/28/23 Range/Units 16:55 21:15 06:14 WBC (3.8-10.6) k/uL RBC (4.30-5.90) m/uL Hgb (13.0-17.5) gm/dL Hct (39.0-53.0) % Plt Count (150-450) k/uL Neutrophils # (1.3-7.7) k/uL Monocytes # (0-1.0) k/uL POC Glucose (mg/dL) 245 H 331 H 204 H (70-110) mg/dL 07/28/23 Range/Units 08:54 WBC 17.5 H (3.8-10.6) k/uL RBC 3.79 L (4.30-5.90) m/uL Hgb 10.9 L (13.0-17.5) gm/dL Hct 34.6 L (39.0-53.0) % Plt Count 458 H (150-450) k/uL Neutrophils # 14.6 H (1.3-7.7) k/uL Monocytes # 1.1 H (0-1.0) k/uL POC Glucose (mg/dL) (70-110) mg/dL Microbiology - Last 24 Hours (Table) 07/26/23 17:25 Blood Culture Gram Stain - Preliminary Blood Blood Culture - Preliminary Presumptive MRSA 07/26/23 17:10 Blood Culture Gram Stain - Preliminary Blood Blood Culture - Preliminary Presumptive MRSA Molecular ID
[2023-07-28 11:35] LABS: Glucose,Whole Blood 165 mg/dL (70-110)
[2023-07-28 12:35] LABS: ALT 25 U/L (4-49); AST 20 U/L (17-59); African American GFR (CKD) >90 (>60 ml/min/1.73 sqM); Albumin 2.4 g/dL (3.5-5.0); Alkaline Phosphatase 216 U/L (38-126); Anion Gap 6 mmol/L; Blood Urea Nitrogen 11 mg/dL (9-20); Calcium 8.2 mg/dL (8.4-10.2); Carbon Dioxide 20 mmol/L (22-30); Chloride 106 mmol/L (98-107); Glucose 153 mg/dL (74-99); Non-African American GFR(CKD) >90 (>60 ml/min/1.73 sqM); Potassium 3.6 mmol/L (3.5-5.1); Sodium 132 mmol/L (137-145); Total Bilirubin 1.2 mg/dL (0.2-1.3); Total Protein 5.2 g/dL (6.3-8.2)
[2023-07-28 12:47] LABS: C Reactive Protein 19.8 mg/dL (<1.0)
[2023-07-28 14:53] LABS: Glucose,Whole Blood 152 mg/dL (70-110)
[2023-07-28] MEDS: IV FLUID CONTINUATION 1,000 ML IV ONE (14:54)
[2023-07-28] MEDS ORDERED: ONDANSETRON 4 MG/2 ML VIAL ONE (15:03)
[2023-07-28] MEDS: ONDANSETRON 4 MG/2 ML VIAL IVP ONE (15:06)
[2023-07-28 15:51] LABS: Erythrocyte Sedimentation Rate 26 mm/Hr (0-20)
--- NOTE | 2023-07-28 15:59 | P.PN ---
Subjective Progress Note Date: 07/28/23 Principal diagnosis: Reason for follow-up is left diabetic foot infection/abscess and MRSA bacteremia Patient is a 57-year-old male with a past medical history significant for diabetes mellitus reflux hypertension patient did have a history of left diabetic foot infection requiring amputation of the toes now presenting to the hospital with worsening pain swelling redness to the left foot area, patient did have extensive left diabetic foot infection concerning for an abscess and MRSA bacteremia. On today's evaluation that is 07/28/2023, the patient did have improvement in his fever pattern last temperature has been 100.18 2 AM no fever since then the patient is breathing comfortably is currently on room air has been complaining of some shortness of breath and chest pain no cough some nausea no vomiting no abdominal pain complaining of significant pain to the left foot more more pain medication. Patient white count is down to 17.5, creatinine 0.73 blood culture with MRSA Objective - Vital Signs Vital signs: Vital Signs Temp 98.4 F 07/28/23 12:25 Pulse 91 07/28/23 12:25 Resp 17 07/28/23 12:25 BP 126/77 07/28/23 12:25 Pulse Ox 97 07/28/23 12:25 FiO2 Intake & Output 07/27/23 07/28/23 07/28/23 18:59 06:59 18:59 Weight 99.79 kg Other: Voiding Method Toilet Toilet # Voids 2 - Exam GENERAL DESCRIPTION: Middle-age male lying in bed in no distress RESPIRATORY SYSTEM: Unlabored breathing , decreased breath sounds at bases HEART: S1 S2 regular rate and rhythm , ABDOMEN: Soft , no tenderness EXTREMITIES: Left foot is currently dressed - Labs CBC & Chem 7: 07/28/23 08:54 07/28/23 08:54 Labs: Abnormal Lab Results - Last 24 Hours (Table) 07/27/23 07/27/23 07/28/23 Range/Units 16:55 21:15 06:14 WBC (3.8-10.6) k/uL RBC (4.30-5.90) m/uL Hgb (13.0-17.5) gm/dL Hct (39.0-53.0) % Plt Count (150-450) k/uL Neutrophils # (1.3-7.7) k/uL Monocytes # (0-1.0) k/uL Sodium (137-145) mmol/L Carbon Dioxide (22-30) mmol/L Glucose (74-99) mg/dL POC Glucose (mg/dL) 245 H 331 H 204 H (70-110) mg/dL Calcium (8.4-10.2) mg/dL Alkaline Phosphatase (38-126) U/L C-Reactive Protein (<1.0) mg/dL Total Protein (6.3-8.2) g/dL Albumin (3.5-5.0) g/dL 07/28/23 07/28/23 07/28/23 Range/Units 08:54 08:54 11:33 WBC 17.5 H (3.8-10.6) k/uL RBC 3.79 L (4.30-5.90) m/uL Hgb 10.9 L (13.0-17.5) gm/dL Hct 34.6 L (39.0-53.0) % Plt Count 458 H (150-450) k/uL Neutrophils # 14.6 H (1.3-7.7) k/uL Monocytes # 1.1 H (0-1.0) k/uL Sodium 132 L (137-145) mmol/L Carbon Dioxide 20 L (22-30) mmol/L Glucose 153 H (74-99) mg/dL POC Glucose (mg/dL) 165 H (70-110) mg/dL Calcium 8.2 L (8.4-10.2) mg/dL Alkaline Phosphatase 216 H (38-126) U/L C-Reactive Protein 19.8 H (<1.0) mg/dL Total Protein 5.2 L (6.3-8.2) g/dL Albumin 2.4 L (3.5-5.0) g/dL Microbiology - Last 24 Hours (Table) 07/26/23 17:25 Blood Culture Gram Stain - Preliminary Blood Blood Culture - Preliminary Presumptive MRSA 07/26/23 17:10 Blood Culture Gram Stain - Preliminary Blood Blood Culture - Preliminary Presumptive MRSA Molecular ID Assessment and Plan (1) Foot abscess, left Current Visit: Yes Status: Acute Code(s): L02.612 - CUTANEOUS ABSCESS OF LEFT FOOT SNOMED Code(s): 40552902678728630 (2) Diabetic infection of left foot Current Visit: Yes Status: Acute Code(s): E11.628 - TYPE 2 DIABETES MELLITUS WITH OTHER SKIN COMPLICATIONS; L08.9 - LOCAL INFECTION OF THE SKIN AND SUBCUTANEOUS TISSUE, UNSP SNOMED Code(s): 13329225 (3) MRSA bacteremia Current Visit: Yes Status: Acute Code(s): R78.81 - BACTEREMIA; B95.62 - METHICILLIN RESIS STAPH INFCT CAUSING DISEASES [facility] SNOMED Code(s): 29379534816859383 Plan: 1patient presented hospital with sepsis in this patient who did have fever tachycardia elevated white count source and left diabetic foot infection concerning for underlying abscess infected wound and will need to cover for the polymicrobial marion associated with diabetic foot infection 2-patient benefit from surgical drainage and deep cultureCase was discussed with the vascular surgeon planning for surgery this afternoon 3-patient did have MRSA bacteremia source is left diabetic foot infection with concern for abscess blood culture repeated document clearance of bacteremia 4-patient to continue vancomycin and Unasyn while watching his kidney function a nd culture closely Dictation was produced using [employer] dictation software. please excuse any grammatical, word or spelling errors. Time with Patient: Less than 30
[2023-07-28] MEDS ORDERED: KETAMINE HCL IN 0.9 % NACL 50 MG/5 ML SYRINGE ONE (16:24)
[2023-07-28] MEDS ORDERED: PROPOFOL 10 MG/ML 20 ML VIAL IV ONE (16:24)
[2023-07-28] MEDS ORDERED: fentaNYL (PF) 50 MCG/ML 2 ML AMP ONE (16:24)
[2023-07-28] MEDS ORDERED: MIDAZOLAM 2 MG/2 ML VIAL ONE (16:24)
[2023-07-28] MEDS: LIDOCAINE 1% INJ 10MG/ML (20 ML MDV) SQ ONE (16:43)
[2023-07-28 17:22] LABS: Glucose,Whole Blood 174 mg/dL (70-110)
--- NOTE | 2023-07-28 17:25 | P.PCN ---
Description of Procedure: Preop diagnosis infected callus right foot plantar aspect Postop is the same Procedure this patient was brought to the operating room right foot was prepped and draped in Prestel manner. This patient had a right big toe amputation done in the past patient developed infected callus on the plantar aspect of the right foot with marked redness and tenderness and drainage under 1% lidocaine were infiltrated. IV sedation elliptical incision was made on the plantar aspect of the foot deepened through skin fat fascia all the way down to the bone head of the metatarsal was visualized there was extensive wound debridement done all the way down to the bone including skin subcu tissue fat fascia and head of the metatarsal was removed with bone cutter all the devitalized tissue was sent for deep culture there was bleeding point which was electrocoagulated. Wound was copiously irrigated with hydroperoxide and saline. Wound was packed with extra silver and pressure dressing applied Postop debridement is 3 x 2 x 2 cm blood loss was 50 cc patient transferred to the recovery room in satisfied condition
[2023-07-28 19:40] LABS: Glucose,Whole Blood 178 mg/dL (70-110)
[2023-07-28] MEDS: INSULIN DETEMIR (LEVEMIR) 100 UNIT/ML SYR SQ SCH (20:31)
[2023-07-29 06:01] LABS: Glucose,Whole Blood 348 mg/dL (70-110)
[2023-07-29] MEDS: VANCOMYCIN TROUGH DUE 1 EACH MISC MISCELLANE ONE (10:02)
[2023-07-29 10:45] LABS: African American GFR (CKD) >90 (>60 ml/min/1.73 sqM); Anion Gap 6 mmol/L; Blood Urea Nitrogen 8 mg/dL (9-20); Calcium 7.9 mg/dL (8.4-10.2); Carbon Dioxide 22 mmol/L (22-30); Chloride 103 mmol/L (98-107); Glucose 317 mg/dL (74-99); Magnesium 1.9 mg/dL (1.6-2.3); Non-African American GFR(CKD) >90 (>60 ml/min/1.73 sqM); Potassium 3.9 mmol/L (3.5-5.1); Sodium 131 mmol/L (137-145)
[2023-07-29 10:47] LABS: African American GFR (CKD) >90 (>60 ml/min/1.73 sqM); Non-African American GFR(CKD) >90 (>60 ml/min/1.73 sqM)
[2023-07-29 10:50] LABS: Basophils # (A) 0.1 k/uL (0-0.2); Basophils % (A) 0 %; Eosinophils # (A) 0.2 k/uL (0-0.7); Eosinophils % (A) 1 %; HCT 37.8 % (39.0-53.0); HGB 11.9 gm/dL (13.0-17.5); Lymphocytes # (A) 1.5 k/uL (1.0-4.8); Lymphocytes % (A) 8 %; MCH 28.7 pg (25.0-35.0); MCHC 31.5 g/dL (31.0-37.0); MCV 91.3 fL (80.0-100.0); Mean Platelet Volume 8.6; Monocytes # (A) 1.1 k/uL (0-1.0); Monocytes % (A) 6 %; Neutrophils # (A) 14.9 k/uL (1.3-7.7); Neutrophils % (A) 83 %; Platelet Count 520 k/uL (150-450); RBC 4.15 m/uL (4.30-5.90); RDW 13.7 % (11.5-15.5)
--- NOTE | 2023-07-29 11:40 | P.PN ---
Subjective Progress Note Date: 07/29/23 Hospital Course: 57-year-old male with history of type 2 diabetes status post previous right toe amputation, hypertension, CAD, PE, diabetic neuropathy presenting with worsening right foot wound with drainage. Right foot x-ray revealed findings concerning for osteomyelitis with a chest x-ray unremarkable. EKG revealed sinus tachycardia at 108 bpm with poor R wave progression, T wave inversions diffusely, with an incomplete right bundle branch block. Laboratory evaluation was remarkable for leukocytosis of 24.2, sodium 126, chloride 95, glucose 316, with total bilirubin 2.8. Patient started on IV antibiotics. ID consulted. Blood cultures positive for MRSA. Vascular surgery consulted. Has post I&D. Subjective: Patient seen and examined at bedside. No acute events overnight. No new complaints. Pertinent positives and negatives as discussed above, a complete review of systems was performed and all other systems are negative. Vitals Signs Reviewed. General: Nontoxic, no distress, appears at stated age Derm: Right foot has a dressing on which is slightly saturated with blood. Head: Atraumatic, normocephalic, symmetric Eyes: EOMI, no lid lag, anicteric sclera Mouth: No lip lesion, mucus membranes moist Cardiovascular: S1S2 reg, no murmur Lungs: CTA bilateral, no rhonchi, no rales, no accessory muscle use Abdominal: Soft, nontender to palpation, no guarding, no appreciable organomegaly Ext: Right toe amputations Neuro: CN II-XI grossly intact, no focal neuro deficits Psych: Alert, oriented, appropriate affect Data Reviewed Today: Pertinent Labs: WBC 18, hemoglobin 11.9, platelet 520, sodium 131, creatinine 0.66, blood glucose range between 1 78-3 48. Magnesium 1.9. Imaging: No new imaging Assessment and Plan: Sepsis secondary to infected diabetic foot ulcer, status post I&D MRSA bacteremia Poorly controlled diabetes, hyperglycemia Hyperbilirubinemia, resolved Elevated ALP Mild hyponatremia Metabolic acidosis, non-anion gap, resolved -Vascular surgery following, patient is status post I&D -Pain control with oral Tylenol as needed, IV morphine as needed, monitor for sedation -ID following, continued on IV vancomycin, monitor for renal toxicity and IV Unasyn 3 g every 6 hours -Blood cultures negative to date, wound cultures showing few gram-positive cocci and few gram-positive bacilli -Echocardiogram pending -Continue sliding scale insulin, monitor for hypoglycemia -Levemir increased to 20 units nightly, 10 units to be given now -Elevated ALP likely in the setting of foot infection Chronic: History of PE CAD Hypertension Dyslipidemia -Patient is not on any medication due to insurance issues, he should be started on some medications if we are able to get insurance for him. DVT ppx: Lovenox Code status: Full code Anticipated discharge place: Pending clinical course Anticipated discharge time: Pending clinical course Objective - Vital Signs Vital signs: Vital Signs Temp 98.9 F 07/29/23 07:38 Pulse 97 07/29/23 07:38 Resp 18 07/29/23 07:38 BP 131/83 07/29/23 07:38 Pulse Ox 97 07/29/23 07:38 FiO2 Intake & Output 07/28/23 07/29/23 07/29/23 18:59 06:59 18:59 Intake Total 450 Output Total 50 Balance 400 Intake: IV 450 Output: Estimated Blood Loss 50 Other: Voiding Method Toilet Toilet # Voids 2 - Labs CBC & Chem 7: 07/29/23 09:14 07/29/23 09:14 Labs: Abnormal Lab Results - Last 24 Hours (Table) 07/28/23 07/28/23 07/28/23 Range/Units 08:54 08:54 08:54 WBC (3.8-10.6) k/uL RBC (4.30-5.90) m/uL Hgb (13.0-17.5) gm/dL Hct (39.0-53.0) % Plt Count (150-450) k/uL Neutrophils # (1.3-7.7) k/uL Monocytes # (0-1.0) k/uL ESR 26 H (0-20) mm/Hr Sodium 132 L (137-145) mmol/L Carbon Dioxide 20 L (22-30) mmol/L BUN (9-20) mg/dL Glucose 153 H (74-99) mg/dL POC Glucose (mg/dL) (70-110) mg/dL Hemoglobin A1c 7.7 H (<=6.0) % Calcium 8.2 L (8.4-10.2) mg/dL Alkaline Phosphatase 216 H (38-126) U/L C-Reactive Protein 19.8 H (<1.0) mg/dL Total Protein 5.2 L (6.3-8.2) g/dL Albumin 2.4 L (3.5-5.0) g/dL 07/28/23 07/28/23 07/28/23 Range/Units 14:52 17:21 19:38 WBC (3.8-10.6) k/uL RBC (4.30-5.90) m/uL Hgb (13.0-17.5) gm/dL Hct (39.0-53.0) % Plt Count (150-450) k/uL Neutrophils # (1.3-7.7) k/uL Monocytes # (0-1.0) k/uL ESR (0-20) mm/Hr Sodium (137-145) mmol/L Carbon Dioxide (22-30) mmol/L BUN (9-20) mg/dL Glucose (74-99) mg/dL POC Glucose (mg/dL) 152 H 174 H 178 H (70-110) mg/dL Hemoglobin A1c (<=6.0) % Calcium (8.4-10.2) mg/dL Alkaline Phosphatase (38-126) U/L C-Reactive Protein (<1.0) mg/dL Total Protein (6.3-8.2) g/dL Albumin (3.5-5.0) g/dL 07/29/23 07/29/23 07/29/23 Range/Units 05:59 09:14 09:14 WBC 18.0 H (3.8-10.6) k/uL RBC 4.15 L (4.30-5.90) m/uL Hgb 11.9 L (13.0-17.5) gm/dL Hct 37.8 L (39.0-53.0) % Plt Count 520 H (150-450) k/uL Neutrophils # 14.9 H (1.3-7.7) k/uL Monocytes # 1.1 H (0-1.0) k/uL ESR (0-20) mm/Hr Sodium 131 L (137-145) mmol/L Carbon Dioxide (22-30) mmol/L BUN 8 L (9-20) mg/dL Glucose 317 H (74-99) mg/dL POC Glucose (mg/dL) 348 H (70-110) mg/dL Hemoglobin A1c (<=6.0) % Calcium 7.9 L (8.4-10.2) mg/dL Alkaline Phosphatase (38-126) U/L C-Reactive Protein (<1.0) mg/dL Total Protein (6.3-8.2) g/dL Albumin (3.5-5.0) g/dL Microbiology - Last 24 Hours (Table) 07/27/23 16:45 Blood Culture Gram Stain - Preliminary Blood Blood Culture - Preliminary 07/28/23 17:00 Gram Stain - Preliminary Foot - Right 07/28/23 17:05 Gram Stain - Preliminary Foot - Right 07/26/23 17:25 Blood Culture Gram Stain - Final Blood Blood Culture - Final Methicillin resist S. aureus 07/26/23 17:10 Blood Culture Gram Stain - Final Blood Blood Culture - Final Methicillin resist S. aureus Molecular ID 07/27/23 16:30 Blood Culture - Preliminary Blood
[2023-07-29 12:14] LABS: Glucose,Whole Blood 364 mg/dL (70-110)
[2023-07-29] MEDS: INSULIN DETEMIR (LEVEMIR) 100 UNIT/ML SYR SQ STA (12:36)
[2023-07-29] MEDS: MORPHINE SULFATE 2 MG/ML SYRINGE IVP PRN (16:23)
[2023-07-29 17:24] LABS: Glucose,Whole Blood 254 mg/dL (70-110)
[2023-07-29 20:20] LABS: Glucose,Whole Blood 165 mg/dL (70-110)
[2023-07-29] MEDS: VANCOMYCIN 2,000 MG in SODIUM CHLORIDE 0.9% 500 ML 500 ML IVPB SCH (22:18)
[2023-07-29] MEDS: INSULIN DETEMIR (LEVEMIR) 100 UNIT/ML SYR SQ SCH (22:18)
--- NOTE | 2023-07-29 23:13 | PN ---
PROGRESS NOTE This is a 57-year-old gentleman who had an infected callus right foot plantar aspect. We did the debridement yesterday. Today, we changed the dressing because the dressing was wet. The wound was irrigated with saline. We placed Aquacel silver rope. Dressing applied. The patient is on IV antibiotic under care of Infectious Disease. We will change the dressing on Thursday. MMODL / IJN: [id number] /
[2023-07-30 06:20] LABS: Glucose,Whole Blood 125 mg/dL (70-110)
[2023-07-30 11:25] LABS: Glucose,Whole Blood 224 mg/dL (70-110)
--- NOTE | 2023-07-30 12:40 | CA ---
Transthoracic Echo Report Name: Sven Chavez Age: 57 Gender: M : 1965 Exam Date: 07/29/2023 11:07 Exam Location: [facility] Ht (in): 67 Wt (lb): 220 Ordering Physician: Garry Puente MD Attending/Referring Phys: Electronics Engineering Technologist Dorothy Tidwell RDCS Procedure CPT: Indications: MRSA bacteremia Cardiac Hx: Technical Quality: Fair Contrast 1: Total Dose (mL): Contrast 2: Total Dose (mL): MEASUREMENTS (Male / Female) Normal Values 2D ECHO LV Diastolic Diameter PLAX 4.7 cm 4.2 - 5.9 / 3.9 - 5.3 cm LV Systolic Diameter PLAX 2.3 cm IVS Diastolic Thickness 1.5 cm 0.6 - 1.0 / 0.6 - 0.9 cm LVPW Diastolic Thickness 1.2 cm 0.6 - 1.0 / 0.6 - 0.9 cm LV Relative Wall Thickness 0.6 RV Internal Dim ED PLAX 5.4 cm LA Volume 39.0 cm??? 18 - 58 / 22 - 52 cm??? LA Volume Index 17.7 cm???/m??? 16 - 28 cm???/m??? M-MODE Aortic Root Diameter MM 4.1 cm LA Systolic Diameter MM 2.9 cm LA Ao Ratio MM 0.7 AV Cusp Separation MM 2.3 cm DOPPLER AV Peak Velocity 151.8 cm/s AV Peak Gradient 9.2 mmHg AV Mean Velocity 111.6 cm/s AV Mean Gradient 5.4 mmHg AV Velocity Time Integral 27.6 cm LVOT Peak Velocity 94.3 cm/s LVOT Peak Gradient 3.6 mmHg LVOT Velocity Time Integral 17.6 cm MV Area PHT 2.6 cm??? Mitral E Point Velocity 60.6 cm/s Mitral A Point Velocity 78.3 cm/s Mitral E to A Ratio 0.8 MV Deceleration Time 294.6 ms MV E' Velocity 10.1 cm/s Mitral E to MV E' Ratio 6.0 TR Peak Velocity 339.9 cm/s TR Peak Gradient 46.2 mmHg Right Ventricular Systolic Press 51.0 mmHg FINDINGS Left Ventricle Moderately increased left ventricular wall thickness. Left ventricular cavity size normal. Abnormal septal motion. Left ventricular ejection fraction is estimated at 50-55 %. Right Ventricle Moderate right ventricular dilatation. Moderate to severe pulmonary hypertension. Right ventricular systolic pressure estimated at 51 mm hg. Right Atrium Mild right atrial dilatation. Left Atrium Normal left atrial size. Mitral Valve Structurally normal mitral valve. Mild mitral annular calcification. Trace to mild mitral regurgitation. Aortic Valve Trileaflet aortic valve. No aortic valve stenosis or regurgitation. Tricuspid Valve Structurally normal tricuspid valve. Moderate tricuspid regurgitation. Pulmonic Valve Structurally normal pulmonic valve. Mild pulmonic regurgitation. Pericardium No pericardial effusion. Aorta Normal size aortic root and proximal ascending aorta. CONCLUSIONS Moderate increased left ventricular wall thickness Left ventricular ejection fraction 50-55% Moderate right ventricular dilation RVSP 51 Trace to mild mitral regurgitation Moderate tricuspid regurgitation No vegetation noted Previewed by: Dr. Patrick Bentley DO (Electronically Signed) Final Date: 30 Jul 2023 12:39
[2023-07-30] MEDS ORDERED: bisacodyL 5 MG TABLET.DR PO PRN (13:16)
--- NOTE | 2023-07-30 13:24 | P.PN ---
Subjective Progress Note Date: 07/29/23 Principal diagnosis: Reason for follow-up is left diabetic foot infection/abscess and MRSA bacteremia Patient is a 57-year-old male with a past medical history significant for diabetes mellitus reflux hypertension patient did have a history of left diabetic foot infection requiring amputation of the toes now presenting to the hospital with worsening pain swelling redness to the left foot area, patient did have extensive left diabetic foot infection concerning for an abscess and MRSA bacteremia.Patient is a 57-year-old male with a past medical history significant for diabetes mellitus reflux hypertension patient did have a history of left diabetic foot infection requiring amputation of the toes now presenting to the hospital with worsening pain swelling redness to the left foot area that apparently has been getting worse for couple of weeks patient has been diagnosed with sepsis secondary to extensive left diabetic foot infection concerning for a n abscess and did have MRSA bacteremia. Patient is status post extensive wound debridement all the way down to the wound and removal of the metatarsal head and deep culture done by vascular surgery on 07/28/2023. On today's evaluation that is 07/29/2023, Patient did have resolution of his fever and is afebrile this morning patient is currently on room air and denies having any shortness of breath, the patient has been complaining of abdominal distention and scrotal swelling also complaining of pain to the right foot area wants more pain medication no vomiting or diarrhea has been reported. Patient white count is 18,000, creatinine 0.66 blood culture with MRSA Objective - Vital Signs Vital signs: Vital Signs Temp 98.2 F 07/29/23 13:53 Pulse 85 07/29/23 13:53 Resp 17 07/29/23 13:53 BP 131/80 07/29/23 13:53 Pulse Ox 97 07/29/23 13:53 FiO2 Intake & Output 07/28/23 07/29/23 07/29/23 18:59 06:59 18:59 Intake Total 450 Output Total 50 Balance 400 Intake: IV 450 Output: Estimated Blood Loss 50 Other: Voiding Method Toilet Toilet # Voids 2 1 - Exam GENERAL DESCRIPTION: Middle-age male lying in bed in no distress RESPIRATORY SYSTEM: Unlabored breathing , decreased breath sounds at bases HEART: S1 S2 regular rate and rhythm , ABDOMEN: Soft , no tenderness EXTREMITIES: Right foot is currently dressed - Labs CBC & Chem 7: 07/29/23 09:14 07/29/23 09:14 Labs: Abnormal Lab Results - Last 24 Hours (Table) 07/28/23 07/28/23 07/28/23 Range/Units 08:54 08:54 17:21 WBC (3.8-10.6) k/uL RBC (4.30-5.90) m/uL Hgb (13.0-17.5) gm/dL Hct (39.0-53.0) % Plt Count (150-450) k/uL Neutrophils # (1.3-7.7) k/uL Monocytes # (0-1.0) k/uL ESR 26 H (0-20) mm/Hr Sodium (137-145) mmol/L BUN (9-20) mg/dL Glucose (74-99) mg/dL POC Glucose (mg/dL) 174 H (70-110) mg/dL Hemoglobin A1c 7.7 H (<=6.0) % Calcium (8.4-10.2) mg/dL 07/28/23 07/29/23 07/29/23 Range/Units 19:38 05:59 09:14 WBC 18.0 H (3.8-10.6) k/uL RBC 4.15 L (4.30-5.90) m/uL Hgb 11.9 L (13.0-17.5) gm/dL Hct 37.8 L (39.0-53.0) % Plt Count 520 H (150-450) k/uL Neutrophils # 14.9 H (1.3-7.7) k/uL Monocytes # 1.1 H (0-1.0) k/uL ESR (0-20) mm/Hr Sodium (137-145) mmol/L BUN (9-20) mg/dL Glucose (74-99) mg/dL POC Glucose (mg/dL) 178 H 348 H (70-110) mg/dL Hemoglobin A1c (<=6.0) % Calcium (8.4-10.2) mg/dL 07/29/23 07/29/23 Range/Units 09:14 12:12 WBC (3.8-10.6) k/uL RBC (4.30-5.90) m/uL Hgb (13.0-17.5) gm/dL Hct (39.0-53.0) % Plt Count (150-450) k/uL Neutrophils # (1.3-7.7) k/uL Monocytes # (0-1.0) k/uL ESR (0-20) mm/Hr Sodium 131 L (137-145) mmol/L BUN 8 L (9-20) mg/dL Glucose 317 H (74-99) mg/dL POC Glucose (mg/dL) 364 H (70-110) mg/dL Hemoglobin A1c (<=6.0) % Calcium 7.9 L (8.4-10.2) mg/dL Microbiology - Last 24 Hours (Table) 07/27/23 16:45 Blood Culture Gram Stain - Preliminary Blood Blood Culture - Preliminary 07/28/23 17:00 Gram Stain - Preliminary Foot - Right 07/28/23 17:05 Gram Stain - Preliminary Foot - Right 07/26/23 17:25 Blood Culture Gram Stain - Final Blood Blood Culture - Final Methicillin resist S. aureus 07/26/23 17:10 Blood Culture Gram Stain - Final Blood Blood Culture - Final Methicillin resist S. aureus Molecular ID 07/27/23 16:30 Blood Culture - Preliminary Blood Assessment and Plan (1) Foot abscess, left Current Visit: Yes Status: Acute Code(s): L02.612 - CUTANEOUS ABSCESS OF LEFT FOOT SNOMED Code(s): 52078460568651383 (2) Diabetic infection of left foot Current Visit: Yes Status: Acute Code(s): E11.628 - TYPE 2 DIABETES MELLITUS WITH OTHER SKIN COMPLICATIONS; L08.9 - LOCAL INFECTION OF THE SKIN AND SUBCUTANEOUS TISSUE, UNSP SNOMED Code(s): 20153257 (3) MRSA bacteremia Current Visit: Yes Status: Acute Code(s): R78.81 - BACTEREMIA; B95.62 - METHICILLIN RESIS STAPH INFCT CAUSING DISEASES [facility]SD [facility] SNOMED Code(s): 05007355267247349 Plan: 1patient presented hospital with sepsis in this patient who did have fever tachycardia elevated white count source and left diabetic foot infection concerning for underlying abscess infected wound and will need to cover for the polymicrobial marion associated with diabetic foot infection 2-patient is s/p surgical drainage and deep cultureby vascular surgery on 07/28/2023 cultures are pending 3-patient did have MRSA bacteremia source is left diabetic foot infection with concern for abscess blood culture has been repeated document clearance of bacteremia 4-patient to continue vancomycin and Unasyn while waiting for the culture to finalize Dictation was produced using [employer] dictation software. please excuse any grammatical, word or spelling errors.
--- NOTE | 2023-07-30 13:26 | P.PN ---
Subjective Progress Note Date: 07/30/23 Principal diagnosis: Reason for follow-up is left diabetic foot infection/abscess and MRSA bacteremia Patient is a 57-year-old male with a past medical history significant for diabetes mellitus reflux hypertension patient did have a history of left diabetic foot infection requiring amputation of the toes now presenting to the hospital with worsening pain swelling redness to the left foot area that apparently has been getting worse for couple of weeks patient has been diagnosed with sepsis secondary to extensive left diabetic foot infection concerning for an abscess and did have MRSA bacteremia. Patient is status post extensive wound debridement all the way down to the wound and removal of the metatarsal head and deep culture done by vascular surgery on 07/28/2023. On today's evaluation that is 07/30/2023, patient has been afebrile, patient is breathing comfortably and is currently on room air, patient denies having any significant cough no chest pain however complaining of some shortness of breath and abdominal distention along with scrotal swelling but denies nausea vomiting or diarrhea still complaining of pain to the right foot wants more pain medi cation Labs pending from this morning right foot culture growing MRSA and Enterobacter Objective - Vital Signs Vital signs: Vital Signs Temp 98.0 F 07/30/23 08:00 Pulse 72 07/30/23 08:00 Resp 16 07/30/23 08:00 BP 152/85 07/30/23 08:00 Pulse Ox 99 07/30/23 08:00 FiO2 Intake & Output 07/29/23 07/30/23 07/30/23 18:59 06:59 18:59 Intake Total 684 Output Total 1000 Balance -1000 684 Intake: Oral 684 Output: Urine 1000 Other: Voiding Method Toilet Toilet # Voids 2 - Exam GENERAL DESCRIPTION: Middle-age male lying in bed in no distress RESPIRATORY SYSTEM: Unlabored breathing , decreased breath sounds at bases HEART: S1 S2 regular rate and rhythm , ABDOMEN: Soft , no tenderness EXTREMITIES: Right foot is currently dressed - Labs CBC & Chem 7: 07/29/23 09:14 07/29/23 09:14 Labs: Abnormal Lab Results - Last 24 Hours (Table) 07/29/23 07/29/23 07/30/23 Range/Units 17:23 20:18 06:18 POC Glucose (mg/dL) 254 H 165 H 125 H (70-110) mg/dL 07/30/23 Range/Units 11:23 POC Glucose (mg/dL) 224 H (70-110) mg/dL Microbiology - Last 24 Hours (Table) 07/28/23 17:05 Gram Stain - Preliminary Foot - Right Wound Culture - Preliminary Presumptive MRSA Enterobacter cloacae Complex 07/28/23 17:00 Gram Stain - Preliminary Foot - Right Tissue Culture - Preliminary Presumptive MRSA Enterobacter cloacae Complex 07/27/23 16:45 Blood Culture Gram Stain - Preliminary Blood Blood Culture - Preliminary Presumptive MRSA 07/27/23 16:30 Blood Culture - Preliminary Blood 07/28/23 08:54 Blood Culture - Preliminary Blood Assessment and Plan (1) Foot abscess, left Current Visit: Yes Status: Acute Code(s): L02.612 - CUTANEOUS ABSCESS OF LEFT FOOT SNOMED Code(s): 97043410754833624 (2) Diabetic infection of left foot Current Visit: Yes Status: Acute Code(s): E11.628 - TYPE 2 DIABETES MELLITUS WITH OTHER SKIN COMPLICATIONS; L08.9 - LOCAL INFECTION OF THE SKIN AND SUBCUTANEOUS TISSUE, UNSP SNOMED Code(s): 70119441 (3) MRSA bacteremia Current Visit: Yes Status: Acute Code(s): R78.81 - BACTEREMIA; B95.62 - METHICILLIN RESIS STAPH INFCT CAUSING DISEASES CLASSD [facility] SNOMED Code(s): 43913126889567817 Plan: 1patient presented hospital with sepsis in this patient who did have fever tachycardia elevated white count source and left diabetic foot infection concerning for underlying abscess infected wound and will need to cover for the polymicrobial marion associated with diabetic foot infection 2-patient is s/p surgical drainage and deep cultureby vascular surgery on 07/28/2023 cultures are currently growing MRSA and Enterobacter 3-patient did have MRSA bacteremia source is left diabetic foot infection with concern for abscess blood culture has been repeated document clearance of bacteremia 4-patient to continue vancomycin however will discontinue Unasyn add cefepime and Flagyl to cover for the Enterobacter and anaerobes Dictation was produced using [employer] dictation software. please excuse any grammatical, word or spelling errors. Time with Patient: Less than 30
[2023-07-30] MEDS: FUROSEMIDE 10 MG/ML 4 ML VIAL IV STA (13:42)
[2023-07-30] MEDS: SENNOSIDES 8.6 MG TAB PO SCH (13:43)
[2023-07-30] MEDS: polyethylene glycoL 3350 17 GM POWD.PACK PO SCH (13:43)
--- NOTE | 2023-07-30 13:47 | P.PN ---
Subjective Progress Note Date: 07/30/23 Hospital Course: 57-year-old male with history of type 2 diabetes status post previous right toe amputation, hypertension, CAD, PE, diabetic neuropathy presenting with worsening right foot wound with drainage. Right foot x-ray revealed findings concerning for osteomyelitis with a chest x-ray unremarkable. EKG revealed sinus tachycardia at 108 bpm with poor R wave progression, T wave inversions diffusely, with an incomplete right bundle branch block. Laboratory evaluation was remarkable for leukocytosis of 24.2, sodium 126, chloride 95, glucose 316, with total bilirubin 2.8. Patient started on IV antibiotics. ID consulted. Blood cultures positive for MRSA. Vascular surgery consulted. Status post I&D. Wound cultures growing MRSA and Enterobacter. Echocardiogram did not show any vegetations, did show moderately increased LV wall thickness, LVEF 50 to 55%, moderate right ventricular dilatation, RVSP 51. Subjective: Patient seen and examined at bedside. No acute events overnight. Complaining of abdominal bloating has been going on for 2 months, constipation, testicular s welling. He claims that his PE was after his previous leg surgery, likely provoked. He has not taken any medications since February. Pertinent positives and negatives as discussed above, a complete review of systems was performed and all other systems are negative. Vitals Signs Reviewed. General: Nontoxic, no distress, appears at stated age Derm: Right foot has a dressing on which is slightly saturated with blood. Head: Atraumatic, normocephalic, symmetric Eyes: EOMI, no lid lag, anicteric sclera Mouth: No lip lesion, mucus membranes moist Cardiovascular: S1S2 reg, no murmur, bilateral lower extremity edema Lungs: CTA bilateral, no rhonchi, no rales, no accessory muscle use Abdominal: Soft, distended, nontender to palpation, no guarding, no appreciable organomegaly Ext: Right toe amputations Neuro: CN II-XI grossly intact, no focal neuro deficits Psych: Alert, oriented, appropriate affect Data Reviewed Today: Pertinent Labs: CBC, BMP pending, will be reviewed when available blood sugars range between 1 25-2 54 Imaging: Echocardiogram did not show any vegetations, did show moderately increased LV wall thickness, LVEF 50 to 55%, moderate right ventricular dilatation, RVSP 51. Assessment and Plan: Sepsis secondary to infected diabetic foot ulcer, status post I&D MRSA bacteremia Poorly controlled diabetes, hyperglycemia Hyperbilirubinemia, resolved Elevated ALP Mild hyponatremia Metabolic acidosis, non-anion gap, resolved -Vascular surgery following, patient is status post I&D -Pain control with oral Tylenol as needed, IV morphine as needed, monitor for sedation -Discussed management with ID, patient on IV cefepime 2 g every 8 hours, IV vancomycin, monitor for renal toxicity, also on oral Flagyl 500 3 times daily -Blood culture from 07/26 positive for MRSA, repeat blood cultures negative growth to date -Continue sliding scale insulin, monitor for hypoglycemia -Continue 20 units Levemir -Elevated ALP likely in the setting of foot infection Abdominal pain Constipation -Started on MiraLAX, senna daily -Bisacodyl as needed -Pending abdominal x-ray Acute diastolic CHF exacerbation Lower extremity edema -Patient claims that he has a history of CHF -Fluids discontinued -Given 40 of IV Lasix once, monitor electrolytes -Echocardiogram showed preserved LV function Chronic: History of PE, likely provoked CAD Hypertension Dyslipidemia DVT ppx: Lovenox Code status: Full code Anticipated discharge place: Pending clinical course Anticipated discharge time: Pending clinical course Objective - Vital Signs Vital signs: Vital Signs Temp 98.0 F 07/30/23 08:00 Pulse 72 07/30/23 08:00 Resp 16 07/30/23 08:00 BP 152/85 07/30/23 08:00 Pulse Ox 99 07/30/23 08:00 FiO2 Intake & Output 07/29/23 07/30/23 07/30/23 18:59 06:59 18:59 Intake Total 684 Output Total 1000 Balance -1000 684 Weight 99.79 kg Intake: Oral 684 Output: Urine 1000 Other: Voiding Method Toilet Toilet # Voids 2 - Labs CBC & Chem 7: 07/29/23 09:14 07/29/23 09:14 Labs: Abnormal Lab Results - Last 24 Hours (Table) 07/29/23 07/29/23 07/30/23 Range/Units 17:23 20:18 06:18 POC Glucose (mg/dL) 254 H 165 H 125 H (70-110) mg/dL 07/30/23 Range/Units 11:23 POC Glucose (mg/dL) 224 H (70-110) mg/dL Microbiology - Last 24 Hours (Table) 07/28/23 17:05 Gram Stain - Preliminary Foot - Right Wound Culture - Preliminary Presumptive MRSA Enterobacter cloacae Complex 07/28/23 17:00 Gram Stain - Preliminary Foot - Right Tissue Culture - Preliminary Presumptive MRSA Enterobacter cloacae Complex 07/27/23 16:45 Blood Culture Gram Stain - Preliminary Blood Blood Culture - Preliminary Presumptive MRSA 07/27/23 16:30 Blood Culture - Preliminary Blood 07/28/23 08:54 Blood Culture - Preliminary Blood
[2023-07-30 13:56] LABS: Basophils # (A) 0.1 k/uL (0-0.2); Basophils % (A) 0 %; Eosinophils # (A) 0.4 k/uL (0-0.7); Eosinophils % (A) 2 %; HCT 35.1 % (39.0-53.0); Lymphocytes # (A) 1.8 k/uL (1.0-4.8); Lymphocytes % (A) 11 %; MCH 30.9 pg (25.0-35.0); MCHC 34.1 g/dL (31.0-37.0); MCV 90.6 fL (80.0-100.0); Mean Platelet Volume 7.8; Monocytes # (A) 0.9 k/uL (0-1.0); Monocytes % (A) 6 %; Neutrophils # (A) 12.3 k/uL (1.3-7.7); Neutrophils % (A) 79 %; Platelet Count 509 k/uL (150-450); RBC 3.88 m/uL (4.30-5.90); RDW 13.8 % (11.5-15.5); WBC 15.5 k/uL (3.8-10.6)
[2023-07-30 14:08] VITALS: BMI 34.4
--- NOTE | 2023-07-30 15:30 | XR ---
EXAMINATION TYPE: XR abdomen 1V DATE OF EXAM: 07/30/2023 COMPARISON: None INDICATION: Bloating TECHNIQUE: Single view abdomen supine view FINDINGS: Nonspecific bowel gas is present. No mass effect is evident. Psoas margins are poorly visualized. No organomegaly is present. IMPRESSION: 1. Nonspecific abdomen
[2023-07-30] MEDS: CEFEPIME 2 GM in SODIUM CHLORIDE 0.9% 100 ML IVPB SCH (15:32)
[2023-07-30] MEDS: metroNIDAZOLE 500 MG TAB PO SCH (15:33)
[2023-07-30 17:41] LABS: Glucose,Whole Blood 189 mg/dL (70-110)
[2023-07-30 18:37] LABS: African American GFR (CKD) >90 (>60 ml/min/1.73 sqM); Anion Gap 7 mmol/L; Blood Urea Nitrogen 8 mg/dL (9-20); Calcium 8.1 mg/dL (8.4-10.2); Carbon Dioxide 21 mmol/L (22-30); Chloride 107 mmol/L (98-107); Glucose 205 mg/dL (74-99); Non-African American GFR(CKD) >90 (>60 ml/min/1.73 sqM); Potassium 3.9 mmol/L (3.5-5.1); Sodium 135 mmol/L (137-145)
[2023-07-30 20:08] LABS: Glucose,Whole Blood 226 mg/dL (70-110)
[2023-07-31 07:15] LABS: Glucose,Whole Blood 75 mg/dL (70-110)
[2023-07-31 07:37] LABS: Basophils # (A) 0.1 k/uL (0-0.2); Basophils % (A) 0 %; Eosinophils # (A) 0.4 k/uL (0-0.7); Eosinophils % (A) 3 %; HCT 36.4 % (39.0-53.0); HGB 11.7 gm/dL (13.0-17.5); Lymphocytes # (A) 1.7 k/uL (1.0-4.8); Lymphocytes % (A) 12 %; MCH 28.7 pg (25.0-35.0); MCHC 32.2 g/dL (31.0-37.0); MCV 89.1 fL (80.0-100.0); Mean Platelet Volume 7.1; Monocytes # (A) 0.8 k/uL (0-1.0); Monocytes % (A) 5 %; Neutrophils # (A) 11.6 k/uL (1.3-7.7); Neutrophils % (A) 79 %; Platelet Count 632 k/uL (150-450); RBC 4.08 m/uL (4.30-5.90); RDW 13.9 % (11.5-15.5); WBC 14.7 k/uL (3.8-10.6)
[2023-07-31 08:05] LABS: African American GFR (CKD) >90 (>60 ml/min/1.73 sqM); Anion Gap 3 mmol/L; Blood Urea Nitrogen 7 mg/dL (9-20); Calcium 8.2 mg/dL (8.4-10.2); Carbon Dioxide 26 mmol/L (22-30); Chloride 106 mmol/L (98-107); Glucose 81 mg/dL (74-99); Magnesium 1.8 mg/dL (1.6-2.3); Non-African American GFR(CKD) >90 (>60 ml/min/1.73 sqM); Sodium 135 mmol/L (137-145)
[2023-07-31] MEDS: FUROSEMIDE 10 MG/ML 4 ML VIAL IV SCH (12:05)
[2023-07-31 12:11] LABS: Glucose,Whole Blood 193 mg/dL (70-110)
[2023-07-31] MEDS: LIDOCAINE 2% (PF) 20 MG/ML 5 ML VIAL SQ ONE (12:58)
--- NOTE | 2023-07-31 13:06 | P.OP ---
Date of Procedure: 07/31/23 Description of Procedure: Date of Procedure: Preoperative Diagnosis: Need for long-term IV antibiotic access. Postoperative Diagnosis: Same. Procedure(s) Performed: Ultrasound-guided cannulation right cephalic vein. Insertion of peripherally inserted central catheter under fluoroscopic guidance. Anesthesia: local (1% Xylocaine.) Surgeon: Mena Estimated Blood Loss (ml): 5 IV fluids (ml): 0 Urine output (ml): 0 Pathology: none sent Condition: stable Disposition: no change Indications for Procedure: Patient will require long-term IV antibiotics as an outpatient patient is offered a PICC line to allow for intravenous administration of antibiotics. Description of Procedure: Patient was brought to the special procedure suite. The right upper extremity sterilely prepped and draped in usual manner. Ultrasound was utilized to identify the cephalic vein which was normally compressible free of visible thrombus. Permenant image was stored. 1% Xylocaine was utilized for local anesthesia tissues overlying the vein. Through this anesthetized area and with the aid of ultrasound a micropuncture needle was utilized to cannulate the vein. Once cannulated, Softip guidewire was advanced into the vein. The needle was withdrawn and a micropuncture sheath and dilator advanced over the guidewire. The guidewire was withdrawn and exchanged for the PICC guidewire and measured 40 cm to the cavoatrial junction. The catheter was cut to size and advanced into the cavoatrial junction without resistance. The sheath was peeled away. Blood was easily withdrawn through the catheter and the catheter was then flushed with heparinized saline solution and secured to the skin. Patient tolerated procedure well and was returned to their room in satisfactory and stable condition.
[2023-07-31] MEDS ORDERED: POTASSIUM CHLORIDE 10 MEQ in WATER FOR INJECTION 1 100ML.BAG IVPB SCH (14:00)
--- NOTE | 2023-07-31 14:37 | P.PN ---
Subjective Progress Note Date: 07/31/23 Hospital Course: 57-year-old male with history of type 2 diabetes status post previous right toe amputation, hypertension, CAD, PE, diabetic neuropathy presenting with worsening right foot wound with drainage. Right foot x-ray revealed findings concerning for osteomyelitis with a chest x-ray unremarkable. EKG revealed sinus tachycardia at 108 bpm with poor R wave progression, T wave inversions diffusely, with an incomplete right bundle branch block. Laboratory evaluation was remarkable for leukocytosis of 24.2, sodium 126, chloride 95, glucose 316, with total bilirubin 2.8. Patient started on IV antibiotics. ID consulted. Blood cultures positive for MRSA. Vascular surgery consulted. Status post I&D. Wound cultures growing MRSA and Enterobacter. Echocardiogram did not show any vegetations, did show moderately increased LV wall thickness, LVEF 50 to 55%, moderate right ventricular dilatation, RVSP 51. PICC line in place. Subjective: Patient seen and examined at bedside. No acute events overnight. Had urinary retention overnight, San catheter in place. Still complaining of abdominal bloating as well as testicular swelling and lower extremity edema. Pertinent positives and negatives as discussed above, a complete review of systems was performed and all other systems are negative. Vitals Signs Reviewed. General: Nontoxic, no distress, appears at stated age Derm: Right foot in a dressing Head: Atraumatic, normocephalic, symmetric Eyes: EOMI, no lid lag, anicteric sclera Mouth: No lip lesion, mucus membranes moist Cardiovascular: S1S2 reg, no murmur, bilateral lower extremity edema 2+ Lungs: CTA bilateral, no rhonchi, no rales, no accessory muscle use Abdominal: Soft, distended, nontender to palpation, no guarding, no appreciable organomegaly : Testicular edema Ext: Right toe amputations Neuro: CN II-XI grossly intact, no focal neuro deficits Psych: Alert, oriented, appropriate affect Data Reviewed Today: Pertinent Labs: WBC 14.7, hemoglobin 11.7, platelet 632, creatinine 0.65, blood sugars range between 75-1 93, magnesium 1.8 Imaging: No new imaging Assessment and Plan: Acute diastolic CHF exacerbation Lower extremity edema -Patient claims that he has a history of CHF -Fluids discontinued -Lasix 40 IV every 12 hours, monitor electrolytes and renal function. -Echocardiogram showed preserved LV function Sepsis secondary to infected diabetic foot ulcer, status post I&D MRSA bacteremia Poorly controlled diabetes, hyperglycemia Hyperbilirubinemia, resolved Elevated ALP Mild hyponatremia Metabolic acidosis, non-anion gap, resolved -Vascular surgery following, patient is status post I&D -Pain control with oral Tylenol as needed, IV morphine as needed, monitor for sedation -Discussed management with ID, patient on IV cefepime 2 g every 8 hours, IV vancomycin, monitor for renal toxicity, also on oral Flagyl 500 3 times daily, PICC line has been placed. -Blood culture from 07/26 positive for MRSA, repeat blood cultures negative g row to date -Continue sliding scale insulin, monitor for hypoglycemia -Continue 20 units Levemir -Elevated ALP likely in the setting of foot infection Abdominal pain Constipation -Continue on MiraLAX, senna daily -Bisacodyl as needed -abd X-ray unremarkable Chronic: History of PE, likely provoked CAD Hypertension Dyslipidemia DVT ppx: Lovenox Code status: Full code Anticipated discharge place: Pending clinical course Anticipated discharge time: Pending clinical course Objective - Vital Signs Vital signs: Vital Signs Temp 98.4 F 07/31/23 13:50 Pulse 93 07/31/23 12:12 Resp 18 07/31/23 12:12 BP 171/96 07/31/23 12:12 Pulse Ox 95 07/31/23 12:12 FiO2 Intake & Output 07/30/23 07/31/23 07/31/23 18:59 06:59 18:59 Intake Total 684 840 Output Total 2049 1800 2700 Balance -1366 -960 -2700 Weight 99.79 kg Intake: Oral 684 840 Output: Urine 2049 1800 2700 Uretheral (San) 600 Other: Voiding Method Toilet Indwelling Catheter - Labs CBC & Chem 7: 07/31/23 06:55 07/31/23 06:55 Labs: Abnormal Lab Results - Last 24 Hours (Table) 07/30/23 07/30/23 07/30/23 Range/Units 12:33 17:39 20:07 WBC (3.8-10.6) k/uL RBC (4.30-5.90) m/uL Hgb (13.0-17.5) gm/dL Hct (39.0-53.0) % Plt Count (150-450) k/uL Neutrophils # (1.3-7.7) k/uL Sodium 135 L (137-145) mmol/L Carbon Dioxide 21 L (22-30) mmol/L BUN 8 L (9-20) mg/dL Creatinine 0.63 L (0.66-1.25) mg/dL Glucose 205 H (74-99) mg/dL POC Glucose (mg/dL) 189 H 226 H (70-110) mg/dL Calcium 8.1 L (8.4-10.2) mg/dL 07/31/23 07/31/23 07/31/23 Range/Units 06:55 06:55 12:10 WBC 14.7 H (3.8-10.6) k/uL RBC 4.08 L (4.30-5.90) m/uL Hgb 11.7 L (13.0-17.5) gm/dL Hct 36.4 L (39.0-53.0) % Plt Count 632 H (150-450) k/uL Neutrophils # 11.6 H (1.3-7.7) k/uL Sodium 135 L (137-145) mmol/L Carbon Dioxide (22-30) mmol/L BUN 7 L (9-20) mg/dL Creatinine 0.65 L (0.66-1.25) mg/dL Glucose (74-99) mg/dL POC Glucose (mg/dL) 193 H (70-110) mg/dL Calcium 8.2 L (8.4-10.2) mg/dL Microbiology - Last 24 Hours (Table) 07/27/23 16:45 Blood Culture Gram Stain - Final Blood Blood Culture - Final Methicillin resist S. aureus 07/28/23 17:05 Gram Stain - Final Foot - Right Wound Culture - Final Methicillin resist S. aureus Enterobacter cloacae Complex 07/28/23 17:00 Gram Stain - Final Foot - Right Tissue Culture - Final Methicillin resist S. aureus Enterobacter cloacae Complex 07/27/23 16:30 Blood Culture - Preliminary Blood 07/28/23 08:54 Blood Culture - Preliminary Blood
--- NOTE | 2023-07-31 15:07 | IR ---
EXAMINATION TYPE: IR cvc insert >=5 years Intraoperative/procedural fluoroscopic services were provid ed. CLINICAL INDICATION:Male, 57 years old with history of ANTIBIOTICS; , [facility] Total fluoroscopy time is 0.5 min. DAP: 72 [id number] Please see the operative/procedural note for further details.
--- NOTE | 2023-07-31 15:17 | P.PN ---
Progress Note - Text 57-year-old gentleman patient had a infected callus plantar aspect of the foot we did do extensive debridement we will continue with local wound care and IV antibiotic patient has a PICC line placed patient dressing is changed will continue with local wound care
--- NOTE | 2023-07-31 16:13 | P.PN ---
Subjective Progress Note Date: 07/31/23 Principal diagnosis: Reason for follow-up is left diabetic foot infection/abscess and MRSA bacteremia Patient is a 57-year-old male with a past medical history significant for diabetes mellitus reflux hypertension patient did have a history of left diabetic foot infection requiring amputation of the toes now presenting to the hospital with worsening pain swelling redness to the left foot area that apparently has been getting worse for couple of weeks patient has been diagnosed with sepsis secondary to extensive left diabetic foot infection concerning for an abscess and did have MRSA bacteremia. Patient is status post extensive wound debridement all the way down to the wound and removal of the metatarsal head and deep culture done by vascular surgery on 07/28/2023. On today's evaluation that is 07/31/2023,the patient denies any fever or any chills, patient is breathing comfortably on room air, the patient has been complaining of chest pain and shortness of breath and no significant cough, patient denies abdominal pain, no nausea vomiting or diarrhea. Denies worsening pain to the right foot wound. Patient white count is 14.7, creatinine 0.65 foot culture now growing drug- resistant Enterobacter in addition to MRSA Objective - Vital Signs Vital signs: Vital Signs Temp 98.4 F 07/31/23 13:50 Pulse 93 07/31/23 12:12 Resp 18 07/31/23 12:12 BP 171/96 07/31/23 12:12 Pulse Ox 95 07/31/23 12:12 FiO2 Intake & Output 07/30/23 07/31/23 07/31/23 18:59 06:59 18:59 Intake Total 684 840 Output Total 2049 1799 2700 Balance -1366 -960 -2700 Weight 99.79 kg Intake: Oral 684 840 Output: Urine 2049 1799 2700 Uretheral (San) 600 Other: Voiding Method Toilet Indwelling Catheter - Exam GENERAL DESCRIPTION: Middle-age male lying in bed in no distress RESPIRATORY SYSTEM: Unlabored breathing , decreased breath sounds at bases HEART: S1 S2 regular rate and rhythm , ABDOMEN: Soft , no tenderness EXTREMITIES: Right foot is currently dressed - Labs CBC & Chem 7: 07/31/23 06:55 07/31/23 06:55 Labs: Abnormal Lab Results - Last 24 Hours (Table) 07/30/23 07/30/23 07/30/23 Range/Units 12:33 17:39 20:07 WBC (3.8-10.6) k/uL RBC (4.30-5.90) m/uL Hgb (13.0-17.5) gm/dL Hct (39.0-53.0) % Plt Count (150-450) k/uL Neutrophils # (1.3-7.7) k/uL Sodium 135 L (137-145) mmol/L Carbon Dioxide 21 L (22-30) mmol/L BUN 8 L (9-20) mg/dL Creatinine 0.63 L (0.66-1.25) mg/dL Glucose 205 H (74-99) mg/dL POC Glucose (mg/dL) 189 H 226 H (70-110) mg/dL Calcium 8.1 L (8.4-10.2) mg/dL 07/31/23 07/31/23 07/31/23 Range/Units 06:55 06:55 12:10 WBC 14.7 H (3.8-10.6) k/uL RBC 4.08 L (4.30-5.90) m/uL Hgb 11.7 L (13.0-17.5) gm/dL Hct 36.4 L (39.0-53.0) % Plt Count 632 H (150-450) k/uL Neutrophils # 11.6 H (1.3-7.7) k/uL Sodium 135 L (137-145) mmol/L Carbon Dioxide (22-30) mmol/L BUN 7 L (9-20) mg/dL Creatinine 0.65 L (0.66-1.25) mg/dL Glucose (74-99) mg/dL POC Glucose (mg/dL) 193 H (70-110) mg/dL Calcium 8.2 L (8.4-10.2) mg/dL Microbiology - Last 24 Hours (Table) 07/27/23 16:45 Blood Culture Gram Stain - Final Blood Blood Culture - Final Methicillin resist S. aureus 07/28/23 17:05 Gram Stain - Final Foot - Right Wound Culture - Final Methicillin resist S. aureus Enterobacter cloacae Complex 07/28/23 17:00 Gram Stain - Final Foot - Right Tissue Culture - Final Methicillin resist S. aureus Enterobacter cloacae Complex 07/27/23 16:30 Blood Culture - Preliminary Blood 07/28/23 08:54 Blood Culture - Preliminary Blood Assessment and Plan (1) Foot abscess, left Current Visit: Yes Status: Acute Code(s): L02.612 - CUTANEOUS ABSCESS OF LEFT FOOT SNOMED Code(s): 02798352846766537 (2) Diabetic infection of left foot Current Visit: Yes Status: Acute Code(s): E11.628 - TYPE 2 DIABETES MELLITUS WITH OTHER SKIN COMPLICATIONS; L08.9 - LOCAL INFECTION OF THE SKIN AND SUBCUTANEOUS TISSUE, UNSP SNOMED Code(s): 96809329 (3) MRSA bacteremia Current Visit: Yes Status: Acute Code(s): R78.81 - BACTEREMIA; B95.62 - METHICILLIN RESIS STAPH INFCT CAUSING DISEASES [facility] SNOMED Code(s): 72025933919160391 Plan: 1patient presented hospital with sepsis in this patient who did have fever tachycardia elevated white count source and left diabetic foot infection concerning for underlying abscess infected wound and will need to cover for the polymicrobial marion associated with diabetic foot infection 2-patient is s/p surgical drainage and deep cultureby vascular surgery on 07/28/2023 cultures are currently growing MRSA and Enterobacter which is multidrug-resistant 3-patient did have MRSA bacteremia source is left diabetic foot infection with concern for abscess blood culture has been repeated which is so far negative 4-patient to continue vancomycin however will discontinue cefepime and start the patient on Invanz to cover for the Enterobacter Dictation was produced using [employer] dictation software. please excuse any grammatical, word or spelling errors. Time with Patient: Less than 30
[2023-07-31 17:20] LABS: Glucose,Whole Blood 194 mg/dL (70-110)
[2023-07-31] MEDS: ERTAPENEM 1 GM in SODIUM CHLORIDE 0.9% 50 ML IVPB SCH (17:41)
[2023-07-31 20:04] LABS: Glucose,Whole Blood 253 mg/dL (70-110)
[2023-08-01] MEDS: VANCOMYCIN TROUGH DUE 1 EACH MISC MISCELLANE ONE (00:26)
[2023-08-01 06:31] LABS: Basophils # (A) 0.1 k/uL (0-0.2); Basophils % (A) 1 %; Eosinophils # (A) 0.4 k/uL (0-0.7); Eosinophils % (A) 3 %; HCT 35.9 % (39.0-53.0); HGB 11.6 gm/dL (13.0-17.5); Lymphocytes # (A) 1.4 k/uL (1.0-4.8); Lymphocytes % (A) 12 %; MCH 28.6 pg (25.0-35.0); MCHC 32.3 g/dL (31.0-37.0); MCV 88.7 fL (80.0-100.0); Monocytes % (A) 9 %; Neutrophils # (A) 8.3 k/uL (1.3-7.7); Neutrophils % (A) 73 %; Platelet Count 591 k/uL (150-450); RBC 4.05 m/uL (4.30-5.90); RDW 13.7 % (11.5-15.5); WBC 11.3 k/uL (3.8-10.6)
[2023-08-01 06:43] LABS: African American GFR (CKD) >90 (>60 ml/min/1.73 sqM); Anion Gap 5 mmol/L; Blood Urea Nitrogen 13 mg/dL (9-20); Carbon Dioxide 27 mmol/L (22-30); Chloride 102 mmol/L (98-107); Glucose 88 mg/dL (74-99); Magnesium 1.8 mg/dL (1.6-2.3); Non-African American GFR(CKD) >90 (>60 ml/min/1.73 sqM); Potassium 3.7 mmol/L (3.5-5.1); Sodium 134 mmol/L (137-145)
[2023-08-01 07:47] LABS: Glucose,Whole Blood 89 mg/dL (70-110)
--- NOTE | 2023-08-01 10:11 | P.PN ---
Progress Note - Text 57-year-old diabetic male patient had a amputation of the big toe in the past patient came with the infected callus plantar's aspect of the right foot we did the x-ray extensive debridement we will changing dressing extra silver patient has no fever or chills patient is an IV antibiotic under care of infectious disease with local wound care if patient goes home will follow-up at [facility] wound clinic with me on next Thursday dressing should be changed every 48 hours
[2023-08-01 11:52] LABS: Glucose,Whole Blood 136 mg/dL (70-110)
--- NOTE | 2023-08-01 13:38 | US ---
EXAMINATION TYPE: US scrotum with doppler. Grayscale and color Doppler Duplex imaging performed of victor manuel dangelo scrotum. DATE OF EXAM: 08/01/2023 COMPARISON: NONE CLINICAL INDICATION: Male, 57 years old with history of edema and pain; pain and edema EXAM MEASUREMENTS: TESTICLES: Right Testicle: 42 x 2.9 x 2.3 cm Left Testicle: 4.1 x 2.6 x 3.1 cm EPIDIDYMIS HEAD: Right Epididymis: 10 x 1.0 x 1.3 cm Left Epididymis: 1.1 x 1.0 x 1.7 cm Doppler performed to assess for testicular vascularity; good bilateral color flow and waveforms are s een. There is no evidence of testicular torsion. Presence of hydroceles: Small bilateral hydroceles. Be present. Presence of varicoceles: no Bilateral skin thickening 2.1 cm. IMPRESSION: 1. Diffuse scrotal thickening through the skin. Correlate for edema. 2. Small hydroceles.
--- NOTE | 2023-08-01 14:18 | P.PN ---
Subjective Progress Note Date: 08/01/23 Hospital Course: 57-year-old male with history of type 2 diabetes status post previous right toe amputation, hypertension, CAD, PE, diabetic neuropathy presenting with worsening right foot wound with drainage. Right foot x-ray revealed findings concerning for osteomyelitis with a chest x-ray unremarkable. EKG revealed sinus tachycardia at 108 bpm with poor R wave progression, T wave inversions diffusely, with an incomplete right bundle branch block. Laboratory evaluation was remarkable for leukocytosis of 24.2, sodium 126, chloride 95, glucose 316, with total bilirubin 2.8. Patient started on IV antibiotics. ID consulted. Blood cultures positive for MRSA. Vascular surgery consulted. Status post I&D. Wound cultures growing MRSA and MDRO Enterobacter. Echocardiogram did not show any vegetations, did show moderately increased LV wall thickness, LVEF 50 to 55%, moderate right ventricular dilatation, RVSP 51. PICC line in place. On IV vanc and IV ertapenem and PO flagyl. Subjective: Patient seen and examined at bedside. No acute events overnight. Still complaining about testicular swelling. San in place. Pertinent positives and negatives as discussed above, a complete review of systems was performed and all other systems are negative. Vitals Signs Reviewed. General: Nontoxic, no distress, appears at stated age Derm: Right foot in a dressing Head: Atraumatic, normocephalic, symmetric Eyes: EOMI, no lid lag, anicteric sclera Mouth: No lip lesion, mucus membranes moist Cardiovascular: S1S2 reg, no murmur, bilateral lower extremity edema 2+ Lungs: CTA bilateral, no rhonchi, no rales, no accessory muscle use Abdominal: Soft, distended, nontender to palpation, no guarding, no appreciable organomegaly : Testicular edema Ext: Right toe amputations Neuro: CN II-XI grossly intact, no focal neuro deficits Psych: Alert, oriented, appropriate affect Data Reviewed Today: Pertinent Labs: WBC 11.3, hemoglobin 11.6, platelet 591, sodium 134, creatinine 0.68, glucose range between 88-1 36, magnesium 1.8 Imaging: Scrotal ultrasound shows diffuse scrotal thickening, small hydroceles. Assessment and Plan: Acute diastolic CHF exacerbation Lower extremity edema Scrotal swelling -Patient claims that he has a history of CHF -Fluids discontinued -Lasix 40 IV every 12 hours, monitor electrolytes and renal function. -Echocardiogram showed preserved LV function -Urology consulted for testicular swelling. -Intake and output, daily weights Sepsis secondary to infected diabetic foot ulcer, status post I&D MRSA bacteremia Poorly controlled diabetes, hyperglycemia Hyperbilirubinemia, resolved Elevated ALP Mild hyponatremia Metabolic acidosis, non-anion gap, resolved -Vascular surgery following, patient is status post I&D -Pain control with oral Tylenol as needed, IV morphine as needed, monitor for sedation -Discussed management with ID, patient now on IV ertapenem 1 g daily, IV vancomycin, monitor for renal toxicity, also on oral Flagyl 500 3 times daily, PICC line has been placed. -Blood culture from 07/26 positive for MRSA, repeat blood cultures negative growth to date, wound cultures growing MDRO Enterobacter. -Continue sliding scale insulin, monitor for hypoglycemia -Continue 20 units Levemir nightly -Elevated ALP likely in the setting of foot infection Abdominal pain Constipation -Continue on MiraLAX, senna daily -Bisacodyl as needed -abd X-ray unremarkable Chronic: History of PE, likely provoked CAD Hypertension Dyslipidemia DVT ppx: Lovenox Code status: Full code Anticipated discharge place: Pending clinical course Anticipated discharge time: Pending clinical course Objective - Vital Signs Vital signs: Vital Signs Temp 98.3 F 08/01/23 11:38 Pulse 79 08/01/23 11:38 Resp 18 08/01/23 11:38 BP 134/71 08/01/23 11:38 Pulse Ox 94 L 08/01/23 11:38 FiO2 Intake & Output 07/31/23 08/01/23 08/01/23 18:59 06:59 18:59 Output Total 6300 6100 3600 Balance -6300 -6100 -3600 Output: Urine 6300 6100 3600 Other: Voiding Method Indwelling Catheter # Bowel Movements 1 - Labs CBC & Chem 7: 08/01/23 05:54 08/01/23 05:54 Labs: Abnormal Lab Results - Last 24 Hours (Table) 07/31/23 07/31/23 08/01/23 Range/Units 17:18 20:02 05:54 WBC 11.3 H (3.8-10.6) k/uL RBC 4.05 L (4.30-5.90) m/uL Hgb 11.6 L (13.0-17.5) gm/dL Hct 35.9 L (39.0-53.0) % Plt Count 591 H (150-450) k/uL Neutrophils # 8.3 H (1.3-7.7) k/uL Sodium (137-145) mmol/L POC Glucose (mg/dL) 194 H 253 H (70-110) mg/dL Calcium (8.4-10.2) mg/dL 08/01/23 08/01/23 Range/Units 05:54 11:41 WBC (3.8-10.6) k/uL RBC (4.30-5.90) m/uL Hgb (13.0-17.5) gm/dL Hct (39.0-53.0) % Plt Count (150-450) k/uL Neutrophils # (1.3-7.7) k/uL Sodium 134 L (137-145) mmol/L POC Glucose (mg/dL) 136 H (70-110) mg/dL Calcium 8.0 L (8.4-10.2) mg/dL Microbiology - Last 24 Hours (Table) 07/28/23 17:05 Anaerobic Culture - Preliminary Foot - Right 07/28/23 08:54 Blood Culture - Preliminary Blood 07/28/23 17:00 Anaerobic Culture - Preliminary Foot - Right 07/27/23 16:45 Blood Culture Gram Stain - Final Blood Blood Culture - Final Methicillin resist S. aureus 07/28/23 17:05 Gram Stain - Final Foot - Right Wound Culture - Final Methicillin resist S. aureus Enterobacter cloacae Complex 07/28/23 17:00 Gram Stain - Final Foot - Right Tissue Culture - Final Methicillin resist S. aureus Enterobacter cloacae Complex
[2023-08-01 17:19] LABS: Glucose,Whole Blood 182 mg/dL (70-110)
--- NOTE | 2023-08-01 17:46 | P.GSCN ---
History of Present Illness Consult date: 08/01/23 History of present illness: 57 yo male in the hospita; several days with a diabetic foot infection, poorer control pof his diabetes. He has multiple medical issues. the medical staff noted somne scrotal swelling today and for this reason we were consulted. The patient has a ascrotal us identifying scrotal edema and small hydroceles. His wbc is 11k. His albumin and total protein levels are low. His urine was clear on admission. He has had reduction in the edema over the lasr few days. He had notable le edema laso Review of Systems All systems: negative - Constitutional Denies fever, Denies weight loss - EENT Eyes: denies blurred vision Ears, nose, mouth and throat: Denies dysphagia - Cardiovascular Denies chest pain, Denies shortness of breath - Respiratory Denies cough, Denies 7 - Gastrointestinal Reports as per HPI - Genitourinary Denies dysuria, Denies hematuria - Integumentary Denies rash, Denies unusual bruising - Neurological Denies headaches, Denies syncope - Hematologic/Lymphatic Denies easy bleeding, Denies easy bruising Past Medical History Past Medical History: Diabetes Mellitus, GERD/Reflux, Hypertension Additional Past Medical History / Comment(s): occ. pain with swallowing at times, hiatal hernia, dry skin, hx kidney stones History of Any Multi-Drug Resistant Organisms: MRSA Year Discovered:: 12/13/20 MDRO Source:: TOE Past Surgical History: Orthopedic Surgery Additional Past Surgical History / Comment(s): cystoscopy/stent in urethra, olga carpal tunnel, trigger finger left thumb, rt thumb surgery, shoulder surgery Past Anesthesia/Blood Transfusion Reactions: No Reported Reaction Additional Past Anesthesia/Blood Transfusion Reaction / Comm: dizziness Past Psychological History: No Psychological Hx Reported Smoking Status: Former smoker Past Alcohol Use History: None Reported Past Drug Use History: None Reported - Past Family History Mother Family Medical History: Hyperlipidemia Father Family Medical History: Diabetes Mellitus Medications and Allergies Home Medications Medication Instructions Recorded Confirmed Type No Known Home Medications 07/26/23 07/26/23 History Allergies Allergy/AdvReac Type Severity Reaction Status Date / Time metformin AdvReac Nausea & Verified 07/28/23 15:16 Vomiting & Diarrhea Ekacqjy-JRC-YrY Reductase AdvReac liver Verified 07/28/23 15:16 Inhibitor problems [Fjgnwdg-Jei-Ebn Reductase Inhibitor] Surgical - Exam Vital Signs Temp Pulse Resp BP Pulse Ox 101.4 F H 113 H 18 140/75 99 07/26/23 16:35 07/26/23 16:35 07/26/23 16:35 07/26/23 16:35 07/26/23 16:35 - General well developed, well nourished, no distress - Eyes normal ocular movement, no icteric - ENT no hearing loss, no congestion - Neck no masses, trachea midline - Respiratory normal respiratory effort, clear to auscultation - Abdomen Abdomen: soft, non tender, no guarding, no rigid, no rebound - Genitourinary indwelling catheter. Mild scrotal edema with some discomfort. No erythema or fluctuance - Integumentary no rash, no abnormal pigmentation - Neurologic no disoriented, no combative - Psychiatric oriented to time, oriented to person, oriented to place, speech is normal, memory intact Results - Labs 08/01/23 05:54 08/01/23 05:54 Abnormal Lab Results - Last 24 Hours (Table) 07/31/23 07/31/23 08/01/23 Range/Units 17:18 20:02 05:54 WBC 11.3 H (3.8-10.6) k/uL RBC 4.05 L (4.30-5.90) m/uL Hgb 11.6 L (13.0-17.5) gm/dL Hct 35.9 L (39.0-53.0) % Plt Count 591 H (150-450) k/uL Neutrophils # 8.3 H (1.3-7.7) k/uL Sodium (137-145) mmol/L POC Glucose (mg/dL) 194 H 253 H (70-110) mg/dL Calcium (8.4-10.2) mg/dL 08/01/23 08/01/23 Range/Units 05:54 11:41 WBC (3.8-10.6) k/uL RBC (4.30-5.90) m/uL Hgb (13.0-17.5) gm/dL Hct (39.0-53.0) % Plt Count (150-450) k/uL Neutrophils # (1.3-7.7) k/uL Sodium 134 L (137-145) mmol/L POC Glucose (mg/dL) 136 H (70-110) mg/dL Calcium 8.0 L (8.4-10.2) mg/dL Microbiology - Last 24 Hours (Table) 07/28/23 17:05 Anaerobic Culture - Preliminary Foot - Right 07/28/23 08:54 Blood Culture - Preliminary Blood 07/28/23 17:00 Anaerobic Culture - Preliminary Foot - Right 07/27/23 16:45 Blood Culture Gram Stain - Final Blood Blood Culture - Final Methicillin resist S. aureus Diabetes panel 08/01/23 Range/Units 05:54 Sodium 134 L (137-145) mmol/L Potassium 3.7 (3.5-5.1) mmol/L Chloride 102 (98-107) mmol/L Carbon Dioxide 27 (22-30) mmol/L BUN 13 (9-20) mg/dL Creatinine 0.68 (0.66-1.25) mg/dL Glucose 88 (74-99) mg/dL Calcium 8.0 L (8.4-10.2) mg/dL Calcium panel 08/01/23 Range/Units 05:54 Calcium 8.0 L (8.4-10.2) mg/dL Pituitary panel 08/01/23 Range/Units 05:54 Sodium 134 L (137-145) mmol/L Potassium 3.7 (3.5-5.1) mmol/L Chloride 102 (98-107) mmol/L Carbon Dioxide 27 (22-30) mmol/L BUN 13 (9-20) mg/dL Creatinine 0.68 (0.66-1.25) mg/dL Glucose 88 (74-99) mg/dL Calcium 8.0 L (8.4-10.2) mg/dL Adrenal panel 08/01/23 Range/Units 05:54 Sodium 134 L (137-145) mmol/L Potassium 3.7 (3.5-5.1) mmol/L Chloride 102 (98-107) mmol/L Carbon Dioxide 27 (22-30) mmol/L BUN 13 (9-20) mg/dL Creatinine 0.68 (0.66-1.25) mg/dL Glucose 88 (74-99) mg/dL Calcium 8.0 L (8.4-10.2) mg/dL - Imaging US - pelvic: report reviewed, image reviewed Assessment and Plan Assessment: Impression: scrotal edema secondary to anasarca, resolving. Plan: for the same reason he had the le edema he had the scrotal edema. It is resolving. the only treatment other than treating his Dm and general medical issues would be to use a scrotal support. the us and p/e are otherwise normal
--- NOTE | 2023-08-01 20:54 | P.PN ---
Subjective Progress Note Date: 08/01/23 Principal diagnosis: Reason for follow-up is left diabetic foot infection/abscess and MRSA bacteremia Patient is a 57-year-old male with a past medical history significant for diabetes mellitus reflux hypertension patient did have a history of left diabetic foot infection requiring amputation of the toes now presenting to the hospital with worsening pain swelling redness to the left foot area that apparently has been getting worse for couple of weeks patient has been diagnosed with sepsis secondary to extensive left diabetic foot infection concerning for an abscess and did have MRSA bacteremia. Patient is status post extensive wound debridement all the way down to the wound and removal of the metatarsal head and deep culture done by vascular surgery on 07/28/2023. On today's evaluation that is 08/01/2023,the patient remains to be afebrile, patient is on room air not requiring supplemental oxygen however has been complaining of shortness of breath and occasional chest pain or cough.Patient denies having any nausea or vomiting, no abdominal pain and no diarrhea has been reported, still complaining of abdominal and lower extremity swelling but no worsening pain. Patient white count is down to 11.3, creatinine is 0.68 Vanco trough was 17.8 6 Objective - Vital Signs Vital signs: Vital Signs Temp 99.1 F 08/01/23 02:00 Pulse 88 08/01/23 02:00 Resp 18 08/01/23 02:00 BP 158/89 08/01/23 02:00 Pulse Ox 95 08/01/23 02:00 FiO2 Intake & Output 07/31/23 08/01/23 08/01/23 18:59 06:59 18:59 Output Total 6300 6100 Balance -6300 -6100 Output: Urine 6300 6100 Other: # Bowel Movements 1 - Exam GENERAL DESCRIPTION: Middle-age male lying in bed in no distress RESPIRATORY SYSTEM: Unlabored breathing , decreased breath sounds at bases HEART: S1 S2 regular rate and rhythm , ABDOMEN: Soft , no tenderness EXTREMITIES: Right foot is currently dressed Exam completed with help of PRINCIPAL SECRETARY - Labs CBC & Chem 7: 08/01/23 05:54 08/01/23 05:54 Labs: Abnormal Lab Results - Last 24 Hours (Table) 07/31/23 07/31/23 07/31/23 Range/Units 06:55 12:10 17:18 WBC (3.8-10.6) k/uL RBC (4.30-5.90) m/uL Hgb (13.0-17.5) gm/dL Hct (39.0-53.0) % Plt Count (150-450) k/uL Neutrophils # (1.3-7.7) k/uL Sodium 135 L (137-145) mmol/L BUN 7 L (9-20) mg/dL Creatinine 0.65 L (0.66-1.25) mg/dL POC Glucose (mg/dL) 193 H 194 H (70-110) mg/dL Calcium 8.2 L (8.4-10.2) mg/dL 07/31/23 08/01/23 08/01/23 Range/Units 20:02 05:54 05:54 WBC 11.3 H (3.8-10.6) k/uL RBC 4.05 L (4.30-5.90) m/uL Hgb 11.6 L (13.0-17.5) gm/dL Hct 35.9 L (39.0-53.0) % Plt Count 591 H (150-450) k/uL Neutrophils # 8.3 H (1.3-7.7) k/uL Sodium 134 L (137-145) mmol/L BUN (9-20) mg/dL Creatinine (0.66-1.25) mg/dL POC Glucose (mg/dL) 253 H (70-110) mg/dL Calcium 8.0 L (8.4-10.2) mg/dL Microbiology - Last 24 Hours (Table) 07/28/23 08:54 Blood Culture - Preliminary Blood 07/28/23 17:00 Anaerobic Culture - Preliminary Foot - Right 07/27/23 16:45 Blood Culture Gram Stain - Final Blood Blood Culture - Final Methicillin resist S. aureus 07/28/23 17:05 Gram Stain - Final Foot - Right Wound Culture - Final Methicillin resist S. aureus Enterobacter cloacae Complex 07/28/23 17:00 Gram Stain - Final Foot - Right Tissue Culture - Final Methicillin resist S. aureus Enterobacter cloacae Complex 07/27/23 16:30 Blood Culture - Preliminary Blood Assessment and Plan (1) Foot abscess, left Current Visit: Yes Status: Acute Code(s): L02.612 - CUTANEOUS ABSCESS OF LEFT FOOT SNOMED Code(s): 59572878056892892 (2) Diabetic infection of left foot Current Visit: Yes Status: Acute Code(s): E11.628 - TYPE 2 DIABETES MELLITUS WITH OTHER SKIN COMPLICATIONS; L08.9 - LOCAL INFECTION OF THE SKIN AND SUBCUTANEOUS TISSUE, UNSP SNOMED Code(s): 24944223 (3) MRSA bacteremia Current Visit: Yes Status: Acute Code(s): R78.81 - BACTEREMIA; B95.62 - METHICILLIN RESIS STAPH INFCT CAUSING DISEASES [facility] SNOMED Code(s): 28021218819124356 Plan: 1patient presented hospital with sepsis in this patient who did have fever tachycardia elevated white count source and left diabetic foot infection concerning for underlying abscess infected wound and will need to cover for the polymicrobial marion associated with diabetic foot infection 2-patient is s/p surgical drainage and deep cultureby vascular surgery on 07/28/2023 cultures are currently growing MRSA and Enterobacter which is multidrug-resistant 3-patient did have MRSA bacteremia source is left diabetic foot infection with concern for abscess blood culture has been repeated which is so far negative 4-patient is currently covered with vancomycin pharmacy to dose along with Invanz to cover for the Enterobacter and monitor clinical course closely Dictation was produced using [employer] dictation software. please excuse any grammatical, word or spelling errors. Time with Patient: Less than 30
[2023-08-01] MEDS: VANCOMYCIN 2,000 MG in SODIUM CHLORIDE 0.9% 500 ML 500 ML IVPB SCH (21:20)
[2023-08-01 21:33] LABS: Glucose,Whole Blood 293 mg/dL (70-110)
[2023-08-02 05:52] LABS: Glucose,Whole Blood 114 mg/dL (70-110)
[2023-08-02 07:02] LABS: African American GFR (CKD) >90 (>60 ml/min/1.73 sqM); Anion Gap 3 mmol/L; Blood Urea Nitrogen 17 mg/dL (9-20); Calcium 8.1 mg/dL (8.4-10.2); Carbon Dioxide 32 mmol/L (22-30); Chloride 99 mmol/L (98-107); Glucose 124 mg/dL (74-99); Magnesium 1.7 mg/dL (1.6-2.3); Non-African American GFR(CKD) >90 (>60 ml/min/1.73 sqM); Potassium 3.8 mmol/L (3.5-5.1); Sodium 134 mmol/L (137-145)
--- NOTE | 2023-08-02 10:43 | P.PN ---
Progress Note - Text 57-year-old gentleman patient had a new infected callus plantar aspect of the right foot which was excised the wound looks clean no drainage noted patient had developed a wound on the dorsal aspect of the foot with some drainage we cleaned the wound and decrease of deep culture patient patient is growing MRSA patient IV antibiotic under care of infectious disease we have placed the extracellular dorsal aspect of the foot and plantar aspect aspect of the foot dressing be changed tomorrow
[2023-08-02 12:24] LABS: Glucose,Whole Blood 212 mg/dL (70-110)
--- NOTE | 2023-08-02 13:28 | P.PN ---
Subjective Progress Note Date: 08/02/23 Hospital Course: 57-year-old male with history of type 2 diabetes status post previous right toe amputation, hypertension, CAD, PE, diabetic neuropathy presenting with worsening right foot wound with drainage. Right foot x-ray revealed findings concerning for osteomyelitis with a chest x-ray unremarkable. EKG revealed sinus tachycardia at 108 bpm with poor R wave progression, T wave inversions diffusely, with an incomplete right bundle branch block. Laboratory evaluation was remarkable for leukocytosis of 24.2, sodium 126, chloride 95, glucose 316, with total bilirubin 2.8. Patient started on IV antibiotics. ID consulted. Blood cultures positive for MRSA. Vascular surgery consulted. Status post I&D. Wound cultures growing MRSA and MDRO Enterobacter. Echocardiogram did not show any vegetations, did show moderately increased LV wall thickness, LVEF 50 to 55%, moderate right ventricular dilatation, RVSP 51. PICC line in place. On IV vanc and IV ertapenem and PO flagyl. Also has acute diastolic CHF exacerbation, on IV Lasix. Subjective: Patient seen and examined at bedside. No acute events overnight. Testicular swelling improved. San in place. Having bowel movements. Pertinent positives and negatives as discussed above, a complete review of systems was performed and all other systems are negative. Vitals Signs Reviewed. General: Nontoxic, no distress, appears at stated age Derm: Right foot in a dressing Head: Atraumatic, normocephalic, symmetric Eyes: EOMI, no lid lag, anicteric sclera Mouth: No lip lesion, mucus membranes moist Cardiovascular: S1S2 reg, no murmur, bilateral lower extremity edema 2+ Lungs: CTA bilateral, no rhonchi, no rales, no accessory muscle use Abdominal: Soft, distended, nontender to palpation, no guarding, no appreciable organomegaly : Testicular edema Ext: Right toe amputations Neuro: CN II-XI grossly intact, no focal neuro deficits Psych: Alert, oriented, appropriate affect Data Reviewed Today: Pertinent Labs: Sodium 134, potassium 3.8, creatinine 0.68, magnesium 1.7, blood sugars range between 114 2-12 Imaging: No new imaging Assessment and Plan: Acute diastolic CHF exacerbation Lower extremity edema Scrotal swelling -Patient claims that he has a history of CHF -Continue Lasix 40 IV every 12 hours, monitor electrolytes and renal function. -Echocardiogram showed preserved LV function -Urology note reviewed, testicular swelling likely in the setting of CHF exacerbation -Intake and output, daily weights Sepsis secondary to infected diabetic foot ulcer, status post I&D MRSA bacteremia Poorly controlled diabetes, hyperglycemia Hyperbilirubinemia, resolved Elevated ALP Mild hyponatremia Metabolic acidosis, non-anion gap, resolved -Vascular surgery following, patient is status post I&D -Pain control with oral Tylenol as needed, IV morphine as needed, monitor for sedation -Discussed management with ID, patient now on IV ertapenem 1 g daily, IV vancomycin, monitor for renal toxicity, also on oral Flagyl 500 3 times daily, PICC line has been placed. -Blood culture from 07/26 positive for MRSA, repeat blood cultures negative growth to date, wound cultures growing MDRO Enterobacter. -Continue sliding scale insulin, monitor for hypoglycemia -Continue 20 units Levemir nightly -Elevated ALP likely in the setting of foot infection Abdominal pain, resolved Constipation, resolved -Continue on MiraLAX, senna daily -Bisacodyl as needed -abd X-ray unremarkable Chronic: History of PE, likely provoked CAD Hypertension Dyslipidemia DVT ppx: Lovenox Code status: Full code Anticipated discharge place: Pending clinical course Anticipated discharge time: Pending clinical course Objective - Vital Signs Vital signs: Vital Signs Temp 99.1 F 08/02/23 12:24 Pulse 84 08/02/23 12:24 Resp 18 08/02/23 12:24 BP 129/73 08/02/23 12:24 Pulse Ox 96 08/02/23 12:24 FiO2 Intake & Output 08/01/23 08/02/23 08/02/23 18:59 06:59 18:59 Output Total 5200 6300 Balance -5200 -6300 Weight 97.5 kg Output: Urine 5200 6300 Uretheral (San) 3900 Other: Voiding Method Indwelling Catheter Indwelling Catheter Indwelling Catheter # Bowel Movements 1 - Labs CBC & Chem 7: 08/01/23 05:54 08/02/23 06:27 Labs: Abnormal Lab Results - Last 24 Hours (Table) 08/01/23 08/01/23 08/02/23 Range/Units 17:14 21:11 05:20 Sodium (137-145) mmol/L Carbon Dioxide (22-30) mmol/L Glucose (74-99) mg/dL POC Glucose (mg/dL) 182 H 293 H 114 H (70-110) mg/dL Calcium (8.4-10.2) mg/dL 08/02/23 08/02/23 Range/Units 06:27 12:23 Sodium 134 L (137-145) mmol/L Carbon Dioxide 32 H (22-30) mmol/L Glucose 124 H (74-99) mg/dL POC Glucose (mg/dL) 212 H (70-110) mg/dL Calcium 8.1 L (8.4-10.2) mg/dL Microbiology - Last 24 Hours (Table) 07/28/23 17:05 Anaerobic Culture - Final Foot - Right 07/28/23 17:00 Anaerobic Culture - Final Foot - Right 07/27/23 16:30 Blood Culture - Final Blood
[2023-08-02 17:12] LABS: Glucose,Whole Blood 165 mg/dL (70-110)
[2023-08-02 20:19] LABS: Glucose,Whole Blood 226 mg/dL (70-110)
[2023-08-03 02:49] VITALS: RESP 16
[2023-08-03 07:03] LABS: Glucose,Whole Blood 129 mg/dL (70-110)
[2023-08-03 08:21] LABS: African American GFR (CKD) >90 (>60 ml/min/1.73 sqM); Anion Gap 4 mmol/L; Blood Urea Nitrogen 17 mg/dL (9-20); Calcium 8.1 mg/dL (8.4-10.2); Carbon Dioxide 33 mmol/L (22-30); Chloride 98 mmol/L (98-107); Glucose 125 mg/dL (74-99); Magnesium 1.9 mg/dL (1.6-2.3); Non-African American GFR(CKD) >90 (>60 ml/min/1.73 sqM); Potassium 4.3 mmol/L (3.5-5.1); Sodium 135 mmol/L (137-145)
[2023-08-03] MEDS: VANCOMYCIN TROUGH DUE 1 EACH MISC MISCELLANE ONE (08:30)
--- NOTE | 2023-08-03 09:50 | PN ---
PROGRESS NOTE A 57-year-old diabetic male. Patient had an infected callus of right foot, which had extensive debridement and patient developed abscess on the dorsal aspect of the foot, which has been drained and we have been treating with local wound care. Today, we have changed the dressing. Less redness noted on the plantar aspect of the foot. Mild drainage noted on the dorsal aspect. We cleaned the wound and placed Aquacel silver rope. The patient is on IV antibiotics under Infectious Disease. MMODL / IJN: [id number] /
[2023-08-03 11:57] LABS: Glucose,Whole Blood 216 mg/dL (70-110)
--- NOTE | 2023-08-03 12:32 | P.PN ---
Subjective Progress Note Date: 08/03/23 Hospital Course: 57-year-old male with history of type 2 diabetes status post previous right toe amputation, hypertension, CAD, PE, diabetic neuropathy presenting with worsening right foot wound with drainage. Right foot x-ray revealed findings concerning for osteomyelitis with a chest x-ray unremarkable. EKG revealed sinus tachycardia at 108 bpm with poor R wave progression, T wave inversions diffusely, with an incomplete right bundle branch block. Laboratory evaluation was remarkable for leukocytosis of 24.2, sodium 126, chloride 95, glucose 316, with total bilirubin 2.8. Patient started on IV antibiotics. ID consulted. Blood cultures positive for MRSA. Vascular surgery consulted. Status post I&D. Wound cultures growing MRSA and MDRO Enterobacter. Echocardiogram did not show any vegetations, did show moderately increased LV wall thickness, LVEF 50 to 55%, moderate right ventricular dilatation, RVSP 51. PICC line in place. On IV vanc and IV ertapenem and PO flagyl. Also has acute diastolic CHF exacerbation, on IV Lasix manage transition to oral Lasix. Subjective: Patient seen and examined at bedside. No acute events overnight. Testicular swelling improved. San in place. Having bowel movements. Pertinent positives and negatives as discussed above, a complete review of systems was performed and all other systems are negative. Vitals Signs Reviewed. General: Nontoxic, no distress, appears at stated age Derm: Right foot in a dressing Head: Atraumatic, normocephalic, symmetric Eyes: EOMI, no lid lag, anicteric sclera Mouth: No lip lesion, mucus membranes moist Cardiovascular: S1S2 reg, no murmur, no edema Lungs: CTA bilateral, no rhonchi, no rales, no accessory muscle use Abdominal: Soft, distended, nontender to palpation, no guarding, no appreciable organomegaly : Testicular edema, reduced Ext: Right toe amputations Neuro: CN II-XI grossly intact, no focal neuro deficits Psych: Alert, oriented, appropriate affect Data Reviewed Today: Pertinent Labs: Sodium 135, bicarb 33, creatinine 0.72, blood sugars range between 1 25-2 26, magnesium 1.9 Imaging: No new imaging Assessment and Plan: Acute diastolic CHF exacerbation Lower extremity edema, resolved Scrotal swelling, resolving -IV Lasix changed to oral Lasix 40 twice daily -Echocardiogram showed preserved LV function -Urology was consulted, testicular swelling likely in the setting of CHF exacerbation, now improving -Intake and output, daily weights Sepsis secondary to infected diabetic foot ulcer, status post I&D MRSA bacteremia Poorly controlled diabetes, hyperglycemia Hyperbilirubinemia, resolved Elevated ALP Mild hyponatremia Metabolic acidosis, non-anion gap, resolved -Vascular surgery following, patient is status post I&D -Pain control with oral Tylenol as needed, IV morphine as needed, monitor for sedation -ID following, patient now on IV ertapenem 1 g daily, IV vancomycin, monitor for renal toxicity, also on oral Flagyl 500 3 times daily, PICC line has been placed. -Blood culture from 07/26 positive for MRSA, repeat blood cultures negative growth to date, wound cultures growing MDRO Enterobacter. -Continue sliding scale insulin, monitor for hypoglycemia -Continue 20 units Levemir nightly -Elevated ALP likely in the setting of foot infection Abdominal pain, resolved Constipation, resolved -Continue on MiraLAX, senna daily -Bisacodyl as needed -abd X-ray unremarkable Chronic: History of PE, likely provoked CAD Hypertension Dyslipidemia DVT ppx: Lovenox Code status: Full code Anticipated discharge place: Pending clinical course Anticipated discharge time: Pending clinical course Objective - Vital Signs Vital signs: Vital Signs Temp 99.2 F 08/03/23 07:04 Pulse 77 08/03/23 07:04 Resp 16 08/03/23 07:04 BP 145/85 08/03/23 07:04 Pulse Ox 96 08/03/23 07:04 FiO2 Intake & Output 08/02/23 08/03/23 08/03/23 18:59 06:59 18:59 Output Total 425 2400 2700 Balance -425 -2400 -2700 Weight 95 kg Output: Urine 425 2400 2700 Other: Voiding Method Indwelling Catheter Indwelling Catheter # Bowel Movements 1 1 - Labs CBC & Chem 7: 08/01/23 05:54 08/03/23 07:27 Labs: Abnormal Lab Results - Last 24 Hours (Table) 08/02/23 08/02/23 08/03/23 Range/Units 17:11 20:17 07:02 Sodium (137-145) mmol/L Carbon Dioxide (22-30) mmol/L Glucose (74-99) mg/dL POC Glucose (mg/dL) 165 H 226 H 129 H (70-110) mg/dL Calcium (8.4-10.2) mg/dL 08/03/23 08/03/23 Range/Units 07:27 11:55 Sodium 135 L (137-145) mmol/L Carbon Dioxide 33 H (22-30) mmol/L Glucose 125 H (74-99) mg/dL POC Glucose (mg/dL) 216 H (70-110) mg/dL Calcium 8.1 L (8.4-10.2) mg/dL Microbiology - Last 24 Hours (Table) 07/28/23 08:54 Blood Culture - Final Blood 07/28/23 17:05 Anaerobic Culture - Final Foot - Right 07/28/23 17:00 Anaerobic Culture - Final Foot - Right
[2023-08-03] MEDS: ONDANSETRON 4 MG/2 ML VIAL IVP PRN (13:12)
[2023-08-03] MEDS: FUROSEMIDE 40 MG TAB PO SCH (16:22)
--- NOTE | 2023-08-03 16:53 | P.PN ---
Subjective Progress Note Date: 08/02/23 Principal diagnosis: Reason for follow-up is left diabetic foot infection/abscess and MRSA bacteremia Patient is a 57-year-old male with a past medical history significant for diabetes mellitus reflux hypertension patient did have a history of left diabetic foot infection requiring amputation of the toes now presenting to the hospital with worsening pain swelling redness to the left foot area that apparently has been getting worse for couple of weeks patient has been diagnosed with sepsis secondary to extensive left diabetic foot infection concerning for an abscess and did have MRSA bacteremia. Patient is status post extensive wound debridement all the way down to the wound and removal of the metatarsal head and deep culture done by vascular surgery on 07/28/2023. On today's evaluation that is 08/02/2023, the patient continues to be afebrile, the patient is on room air and breathing comfortably, the Pt complaining of some chest pressure and swelling to the abdominal pain and testicular area however mention has decreased denies any worsening pain to the right foot and no diarrhea has been reported. No CBC was done today his creatinine 0.68 blood culture repeat has been negative Objective - Vital Signs Vital signs: Vital Signs Temp 98.4 F 08/02/23 07:30 Pulse 86 08/02/23 07:30 Resp 18 08/02/23 07:30 BP 120/69 08/02/23 07:30 Pulse Ox 96 08/02/23 07:30 FiO2 Intake & Output 08/01/23 08/02/23 08/02/23 18:59 06:59 18:59 Output Total 5200 6300 Balance -5200 -6300 Weight 97.5 kg Output: Urine 5200 6300 Uretheral (San) 3900 Other: Voiding Method Indwelling Catheter Indwelling Catheter # Bowel Movements 1 - Exam GENERAL DESCRIPTION: Middle-age male lying in bed in no distress RESPIRATORY SYSTEM: Unlabored breathing , decreased breath sounds at bases HEART: S1 S2 regular rate and rhythm , ABDOMEN: Soft , no tenderness EXTREMITIES: Right foot is currently dressed Exam completed with help of [employer]OCIATE - Labs CBC & Chem 7: 08/01/23 05:54 08/03/23 07:27 Labs: Abnormal Lab Results - Last 24 Hours (Table) 08/01/23 08/01/23 08/01/23 Range/Units 11:41 17:14 21:11 Sodium (137-145) mmol/L Carbon Dioxide (22-30) mmol/L Glucose (74-99) mg/dL POC Glucose (mg/dL) 136 H 182 H 293 H (70-110) mg/dL Calcium (8.4-10.2) mg/dL 08/02/23 08/02/23 Range/Units 05:20 06:27 Sodium 134 L (137-145) mmol/L Carbon Dioxide 32 H (22-30) mmol/L Glucose 124 H (74-99) mg/dL POC Glucose (mg/dL) 114 H (70-110) mg/dL Calcium 8.1 L (8.4-10.2) mg/dL Microbiology - Last 24 Hours (Table) 07/27/23 16:30 Blood Culture - Final Blood 07/28/23 17:05 Anaerobic Culture - Preliminary Foot - Right Assessment and Plan (1) Foot abscess, left Current Visit: Yes Status: Acute Code(s): L02.612 - CUTANEOUS ABSCESS OF LEFT FOOT SNOMED Code(s): 65045634640245147 (2) Diabetic infection of left foot Current Visit: Yes Status: Acute Code(s): E11.628 - TYPE 2 DIABETES MELLITUS WITH OTHER SKIN COMPLICATIONS; L08.9 - LOCAL INFECTION OF THE SKIN AND SUBCUTANEOUS TISSUE, UNSP SNOMED Code(s): 16358539 (3) MRSA bacteremia Current Visit: Yes Status: Acute Code(s): R78.81 - BACTEREMIA; B95.62 - METHICILLIN RESIS STAPH INFCT CAUSING DISEASES CLASSD [facility] SNOMED Code(s): 02602061545809393 Plan: 1patient presented hospital with sepsis in this patient who did have fever tachycardia elevated white count source and left diabetic foot infection concerning for underlying abscess infected wound and will need to cover for the polymicrobial marion associated with diabetic foot infection 2-patient is s/p surgical drainage and deep cultureby vascular surgery on 07/28/2023 cultures are currently growing MRSA and Enterobacter which is multidrug-resistant 3-patient did have MRSA bacteremia source is left diabetic foot infection with concern for abscess blood culture has been repeated which is so far negative 4-patient to continue with vancomycin pharmacy to dose along with Invanz to cover for the Enterobacter and continue supportive care Dictation was produced using [employer] dictation software. please excuse any grammatical, word or spelling errors. Time with Patient: Less than 30
--- NOTE | 2023-08-03 16:54 | P.PN ---
Subjective Progress Note Date: 08/03/23 Principal diagnosis: Reason for follow-up is left diabetic foot infection/abscess and MRSA bacteremia Patient is a 57-year-old male with a past medical history significant for diabetes mellitus reflux hypertension patient did have a history of left diabetic foot infection requiring amputation of the toes now presenting to the hospital with worsening pain swelling redness to the left foot area that apparently has been getting worse for couple of weeks patient has been diagnosed with sepsis secondary to extensive left diabetic foot infection concerning for an abscess and did have MRSA bacteremia. Patient is status post extensive wound debridement all the way down to the wound and removal of the metatarsal head and deep culture done by vascular surgery on 07/28/2023. On today's evaluation that is 08/03/2023, Patient is afebrile patient is currently on room air and denies having any shortness of breath, the patient denies any chest pain or cough, the patient denies any nausea vomiting did not have any abdominal pain and no diarrhea patient mention overall improvement swelling to the lower abdominal area as well as testicular area. No CBC was done today his creatinine 0.72 blood culture repeat has been negative Objective - Vital Signs Vital signs: Vital Signs Temp 98.8 F 08/03/23 12:51 Pulse 78 08/03/23 12:51 Resp 16 08/03/23 12:51 BP 124/73 08/03/23 12:51 Pulse Ox 96 08/03/23 12:51 FiO2 Intake & Output 08/02/23 08/03/23 08/03/23 18:59 06:59 18:59 Output Total 425 2400 2700 Balance -425 -2400 -2700 Weight 95 kg Output: Urine 425 2400 2700 Other: Voiding Method Indwelling Catheter Indwelling Catheter Indwelling Catheter # Bowel Movements 1 1 - Exam GENERAL DESCRIPTION: Middle-age male lying in bed in no distress RESPIRATORY SYSTEM: Unlabored breathing , decreased breath sounds at bases HEART: S1 S2 regular rate and rhythm , ABDOMEN: Soft , no tenderness EXTREMITIES: Right foot is currently dressed Exam completed with help of [employer] IN[employer]IGATION SUPERVISOR - Labs CBC & Chem 7: 08/01/23 05:54 08/03/23 07:27 Labs: Abnormal Lab Results - Last 24 Hours (Table) 08/02/23 08/02/23 08/03/23 Range/Units 17:11 20:17 07:02 Sodium (137-145) mmol/L Carbon Dioxide (22-30) mmol/L Glucose (74-99) mg/dL POC Glucose (mg/dL) 165 H 226 H 129 H (70-110) mg/dL Calcium (8.4-10.2) mg/dL 08/03/23 08/03/23 Range/Units 07:27 11:55 Sodium 135 L (137-145) mmol/L Carbon Dioxide 33 H (22-30) mmol/L Glucose 125 H (74-99) mg/dL POC Glucose (mg/dL) 216 H (70-110) mg/dL Calcium 8.1 L (8.4-10.2) mg/dL Microbiology - Last 24 Hours (Table) 07/28/23 08:54 Blood Culture - Final Blood Assessment and Plan (1) Foot abscess, left Current Visit: Yes Status: Acute Code(s): L02.612 - CUTANEOUS ABSCESS OF LEFT FOOT SNOMED Code(s): 92477711818578809 (2) Diabetic infection of left foot Current Visit: Yes Status: Acute Code(s): E11.628 - TYPE 2 DIABETES MELLITUS WITH OTHER SKIN COMPLICATIONS; L08.9 - LOCAL INFECTION OF THE SKIN AND SUBCUTANEOUS TISSUE, UNSP SNOMED Code(s): 62769145 (3) MRSA bacteremia Current Visit: Yes Status: Acute Code(s): R78.81 - BACTEREMIA; B95.62 - ME THICILLIN RESIS STAPH INFCT CAUSING DISEASES CLASSD [facility] SNOMED Code(s): 62503881983879093 Plan: 1patient presented hospital with sepsis in this patient who did have fever tachycardia elevated white count source and left diabetic foot infection concerning for underlying abscess infected wound and will need to cover for the polymicrobial marion associated with diabetic foot infection 2-patient is s/p surgical drainage and deep cultureby vascular surgery on 07/28/2023 cultures are currently growing MRSA and Enterobacter which is multidr ug-resistant 3-patient did have MRSA bacteremia source is left diabetic foot infection with concern for abscess blood culture has been repeated which is so far negative 4-patient currently covered with vancomycin pharmacy to dose and Invanz, plan is for at least 6 weeks of antibiotic therapy from the negative blood culture Dictation was produced using [employer] dictation software. please excuse any g rammatical, word or spelling errors. Time with Patient: Less than 30
[2023-08-03 17:07] LABS: Glucose,Whole Blood 233 mg/dL (70-110)
[2023-08-03 20:07] LABS: Glucose,Whole Blood 252 mg/dL (70-110)
[2023-08-04] MEDS: IPRATROPIUM-ALBUTEROL 3 ML NEB INHALATION PRN (02:42)
--- NOTE | 2023-08-04 05:11 | XR ---
EXAMINATION TYPE: XR chest 1V portable DATE OF EXAM: 08/04/2023 CLINICAL HISTORY: Sudden onset constant coughing TECHNIQUE: Single frontal portable upright view of the chest is obtained. COMPARISON: Prior chest x-ray 9 days earlier FINDINGS: There is new increased focal opacity with air-fluid level in the lateral left midlung. Rig ht lung is clear. Mild cardiomegaly is redemonstrated. The osseous structures are intact. IMPRESSION: Mild cardiomegaly with possible new cavitary lesion lateral left midlung worrisome for pu lmonary parenchymal abscess. Consider CT follow-up to confirm.
[2023-08-04] MEDS ORDERED: RX INFO: IV CONTRAST WAS GIVEN 1 EACH MISC MISCELLANE PRN (06:48)
[2023-08-04 07:14] LABS: Glucose,Whole Blood 100 mg/dL (70-110)
[2023-08-04 10:39] LABS: Basophils # (A) 0.08 X 10*3/uL (0.00-0.10); Basophils % (A) 0.7 %; Eosinophils # (A) 0.28 X 10*3/uL (0.04-0.35); Eosinophils % (A) 2.5 %; HCT 39.4 % (39.6-50.0); HGB 12.6 g/dL (13.0-17.0); Lymphocytes # (A) 2.15 X 10*3/uL (0.90-5.00); Lymphocytes % (A) 19.2 %; MCH 28.7 pg (27.0-32.0); MCV 89.7 FL (80.0-97.0); Mean Platelet Volume 10.4 FL (9.5-12.2); Monocytes # (A) 1.17 X 10*3/uL (0.20-1.00); Monocytes % (A) 10.4 %; NRBC Per 100 WBC 0 X 10*3/uL (0.00-0.01); Neutrophils # (A) 7.39 X 10*3/uL (1.80-7.70); Platelet Count 389 X 10*3/uL (140-440); RBC 4.39 X 10*6/uL (4.40-5.60); RDW 13.9 % (11.5-14.5)
--- NOTE | 2023-08-04 11:07 | CT ---
EXAMINATION TYPE: CT chest w con DATE OF EXAM: 08/04/2023 COMPARISON: 08/29/2020 CT, 08/04/2023 chest x-ray HISTORY: Questionable lung mass on CXR CT DLP: 702 mGycm, Automated exposure control for dose reduction was used. CONTRAST: Performed injected with 100 mL of Isovue 300. TECHNIQUE: Axial images were obtained at 5 mm thick sections. Reconstructed images are reviewed on [employer] computer in the coronal plane. FINDINGS: Portion of the thyroid visualized is normal. Small bilateral pleural effusions are present. Small groundglass opacities present anterior left upper lung field. Series 4 image 20. There are consolidations within the lingula and superior segment left lower lobe, example image angelicaie s 4 image 29. Correlate for pneumonia and infectious etiology. Underlying masses however are not excl uded and this should be followed to clearing. There may be some increased lung markings in the depend ent right lung base. No enlarged mediastinal or hilar adenopathy is evident. The ascending aorta diameter at the level o f the main pulmonary artery is 3.4 cm. The main pulmonary artery diameter at the bifurcation is 3.6 cm. Consider mild pulmonary hypertension. Limited CT sections are obtained through the upper abdomen. Abdomen is essentially unremarkable. IMPRESSION: 1. Increased lung markings left midlung and superior segment lower lobe correlate for infectious etio logies. Follow-up to clearing is recommended. Underlying masses are not excluded. This may correlate with the chest x-ray findings. 2. Mild pulmonary hypertension.
[2023-08-04 12:29] LABS: Glucose,Whole Blood 124 mg/dL (70-110)
[2023-08-04 13:43] VITALS: BP 147/81; PULSE 82; TEMP 98.8
--- NOTE | 2023-08-04 13:45 | P.DS ---
Providers Date of admission: 07/26/23 18:59 Expected date of discharge: 08/04/23 Attending physician: Garry Puente MD Consults: 07/27/23 01:39 Consult Physician Urgent Consulting Provider: Hu Mendoza Consult Reason/Comments: R toe cellulitis Do you want consulting provider notified?: Yes 07/27/23 07:48 Consult Physician Urgent Consulting Provider: Simon Kimble Consult Reason/Comments: right foot wound, known to you Do you want consulting provider notified?: Yes 08/01/23 14:02 Consult Physician Routine Consulting Provider: Aiden Santos Consult Reason/Comments: right testicular swelling Do you want consulting provider notified?: Yes Primary care physician: Deyvi Hurtado Hospital Course: Discharge Diagnosis: Sepsis secondary to infected diabetic foot ulcer, status post I&D MRSA bacteremia Poorly controlled diabetes, A1c 7.7 Hyperbilirubinemia, resolved Elevated ALP Mild hyponatremia Metabolic acidosis, non-anion gap Acute diastolic CHF exacerbation Scrotal edema Acute urinary retention Bacterial pneumonia Constipation History of PE, likely provoked CAD Hypertension Dyslipidemia Hospital Course: 57-year-old male with history of type 2 diabetes status post previous right toe amputation, hypertension, CAD, diastolic CHF, PE likely provoked, diabetic neuropathy presenting with worsening right foot wound with drainage. Right foot x-ray revealed findings concerning for osteomyelitis. Chest x-ray was unremarkable.. EKG revealed sinus tachycardia at 108 bpm with poor R wave progression, T wave inversions diffusely, with an incomplete right bundle branch block. Laboratory evaluation was remarkable for leukocytosis of 24.2, sodium 126, chloride 95, glucose 316, with total bilirubin 2.8. Patient started on IV antibiotics. ID consulted. Blood cultures positive for MRSA. Vascular surgery consulted. Status post I&D. Wound cultures growing MRSA and MDRO Enterobacter. Also started on ertapenem. Echocardiogram did not show any vegetations, did show moderately increased LV wall thickness, LVEF 50 to 55%, moderate right ventricular dilatation, RVSP 51. PICC line in place. Also has acute diastolic CHF exacerbation, on IV Lasix manage transition to oral Lasix. He did have testicular edema. Scrotal ultrasound showed small hydroceles, diffuse scrotal thickening through the skin concerning for edema. Was seen by urology. San catheter was placed. Voiding trial at the time of discharge. Patient will need outpatient follow-up. Scrotal edema reduced with Lasix. Patient also had developing left-sided pneumonia, CT chest showed left midlung and superior segment left lower lobe pneumonia, needs outpatient CT to confirm clearance. Patient currently on room air. He will be discharged on IV antibiotics for 5 weeks. Follow-up with ID, PCP, and vascular surgery. He has not been taking any medications due to loss of insurance earlier during the year. Restarted on some antidiabetic medications. Needs close follow-up with PCP to resume all of his chronic medications. Patient seen and examined at bedside. Vital signs reviewed and stable. General: Nontoxic, no distress, appears at stated age Derm: Warm, dry Head: Atraumatic, normocephalic, symmetric Eyes: EOMI, no lid lag, anicteric sclera Mouth: No lip lesion, mucus membranes moist Cardiovascular: S1S2 reg, no murmur Lungs: CTA bilateral, no rhonchi, no rales, no accessory muscle use Abdominal: Soft, nontender to palpation, no guarding, no appreciable organomegaly Ext: No gross muscle atrophy, no edema, no contractures Neuro: CN II-XI grossly intact, no focal neuro deficits Psych: Alert, oriented, appropriate affect A total of 33 minutes of time were spent preparing this complex discharge summary. Patient was discharged on 08/04/2023 at 1336. Patient Condition at Discharge: Stable Plan - Discharge Summary Discharge Rx Participant: Yes New Discharge Prescriptions: New Ertapenem [INVanz] 1 gm IVPB DAILY@1700 35 Days each sitaGLIPtin [Januvia] 25 mg PO DAILY #90 tablet Furosemide [Lasix] 40 mg PO BID@0900,1600 #90 tab Sennosides [Senokot] 8.6 mg PO DAILY #30 tab Vancomycin 2,000 mg IVPB Q12H 35 Days each glipiZIDE [Glucotrol] 5 mg PO AC-BID #90 tab polyethylene glycoL 3350 [Miralax] 17 gm PO DAILY #30 packet Discharge Medication List Ertapenem [INVanz] 1 gm IVPB DAILY@1700 35 Days each 08/04/23 [Rx] Furosemide [Lasix] 40 mg PO BID@0900,1600 #90 tab 08/04/23 [Rx] Sennosides [Senokot] 8.6 mg PO DAILY #30 tab 08/04/23 [Rx] Vancomycin 2,000 mg IVPB Q12H 35 Days each 08/04/23 [Rx] glipiZIDE [Glucotrol] 5 mg PO AC-BID #90 tab 08/04/23 [Rx] polyethylene glycoL 3350 [Miralax] 17 gm PO DAILY #30 packet 08/04/23 [Rx] sitaGLIPtin [Januvia] 25 mg PO DAILY #90 tablet 08/04/23 [Rx] Follow up Appointment(s)/Referral(s): [facility], [NON-STAFF] - As Needed ([facility] will call you to schedule your in home nursing visits. ) Azucena Coelho, ELIECER [Family Provider] - 1-2 days [facility], [REFERRING] - 1 Week Hu Mendoza MD [STAFF PHYSICIAN] - 1 Week Simon Kimble MD [STAFF PHYSICIAN] - 1 Week Patient Instructions/Handouts: MRSA (Methicillin-Resistant Staphylococcus Aureus) (DC), Bacteremia (DC), Bacterial Pneumonia (DC), Heart Failure (DC) Activity/Diet/Wound Care/Special Instructions: *Case Management faxed an order for test strips to [facility]. [facility] is requiring patient to call to reinstate delivery of diabetic supplies: [phone]. Please see your PCP and ID. Discharge Disposition: HOME WITH HOME HEALTH SERVICES
--- NOTE | 2023-08-04 16:22 | P.PN ---
Subjective Progress Note Date: 08/04/23 Principal diagnosis: Reason for follow-up is left diabetic foot infection/abscess and MRSA bacteremia Patient is a 57-year-old male with a past medical history significant for diabetes mellitus reflux hypertension patient did have a history of left diabetic foot infection requiring amputation of the toes now presenting to the hospital with worsening pain swelling redness to the left foot area that apparently has been getting worse for couple of weeks patient has been diagnosed with sepsis secondary to extensive left diabetic foot infection concerning for an abscess and did have MRSA bacteremia. Patient is status post extensive wound debridement all the way down to the wound and removal of the metatarsal head and deep culture done by vascular surgery on 07/28/2023. On today's evaluation that is 08/04/2023, patient has been afebrile, patient is complaining of some shortness of breath and did have a cough not bring up any sputum no no nausea vomiting abdominal pain or any diarrhea worsening pain to the right foot. Patient white count is 9.20 creatinine 0.72 follow-up blood culture has been negative Objective - Vital Signs Vital signs: Vital Signs Temp 98.9 F 08/04/23 07:09 Pulse 76 08/04/23 07:09 Resp 16 08/04/23 07:09 BP 153/81 08/04/23 07:09 Pulse Ox 98 08/04/23 07:09 FiO2 Intake & Output 08/03/23 08/04/23 08/04/23 18:59 06:59 18:59 Intake Total 710 Output Total 3250 2600 1200 Balance -2540 -2600 -1200 Weight 90.5 kg Intake: Intake, IV Titration 710 Amount Ertapenem 1 gm In Sodium 50 Chloride 0.9% 50 ml @ 100 mls/hr IVPB DAILY@1700 [facility] Rx#:[id number] IV Fluid Continuation 1, 160 000 ml @ 0 mls/hr IV .STK -[facility] Rx#:[id number] Vancomycin 2,000 mg In 500 Sodium Chloride 0.9% 500 ml 500 ml @ 167 mls/hr IVPB Q12H [facility] Rx#: [id number] Output: Urine 3250 2600 1200 Other: Voiding Method Indwelling Catheter Indwelling Catheter Indwelling Catheter - Exam GENERAL DESCRIPTION: Middle-age male lying in bed in no distress RESPIRATORY SYSTEM: Unlabored breathing , decreased breath sounds at bases HEART: S1 S2 regular rate and rhythm , ABDOMEN: Soft , no tenderness EXTREMITIES: Right foot is currently dressed Exam completed with help of PICKER TENDER - Labs CBC & Chem 7: 08/04/23 06:26 08/03/23 07:27 Labs: Abnormal Lab Results - Last 24 Hours (Table) 08/03/23 08/03/23 08/04/23 Range/Units 17:06 20:03 06:26 WBC 11.20 H (4.50-10.00) X 10*3/uL RBC 4.39 L (4.40-5.60) X 10*6/uL Hgb 12.6 L (13.0-17.0) g/dL Hct 39.4 L (39.6-50.0) % Immature Gran # 0.13 H (0.00-0.04) X 10*3/uL Monocytes # 1.17 H (0.20-1.00) X 10*3/uL POC Glucose (mg/dL) 233 H 252 H (70-110) mg/dL 08/04/23 Range/Units 12:28 WBC (4.50-10.00) X 10*3/uL RBC (4.40-5.60) X 10*6/uL Hgb (13.0-17.0) g/dL Hct (39.6-50.0) % Immature Gran # (0.00-0.04) X 10*3/uL Monocytes # (0.20-1.00) X 10*3/uL POC Glucose (mg/dL) 124 H (70-110) mg/dL Microbiology - Last 24 Hours (Table) 08/02/23 10:30 Gram Stain - Preliminary Foot - Right Tissue Culture - Preliminary Presumptive MRSA Assessment and Plan (1) Foot abscess, left Current Visit: Yes Status: Acute Code(s): L02.612 - CUTANEOUS ABSCESS OF LEFT FOOT SNOMED Code(s): 95235033027427143 (2) Diabetic infection of left foot Current Visit: Yes Status: Acute Code(s): E11.628 - TYPE 2 DIABETES MELLITUS WITH OTHER SKIN COMPLICATIONS; L08.9 - LOCAL INFECTION OF THE SKIN AND SUBCUTANEOUS TISSUE, UNSP SNOMED Code(s): 53820860 (3) MRSA bacteremia Current Visit: Yes Status: Acute Code(s): R78.81 - BACTEREMIA; B95.62 - METHICILLIN RESIS STAPH INFCT CAUSING DISEASES CLASSD ELSWHR SNOMED Code(s): 35146209223870829 Plan: 1patient presented hospital with sepsis in this patient who did have fever tachycardia elevated white count source and left diabetic foot infection concerning for underlying abscess infected wound and will need to cover for the polymicrobial marion associated with diabetic foot infection 2-patient is s/p surgical drainage and deep cultureby vascular surgery on 07/28/2023 cultures are currently growing MRSA and Enterobacter which is multidrug-resistant 3-patient did have MRSA bacteremia source is left diabetic foot infection with concern for abscess blood culture has been repeated which is so far negative 4-patient to continue with vancomycin pharmacy to dose and Invanz, plan is for at least 6 weeks of antibiotic therapy from the negative blood culture, prescription has been provided to the pillowcase turner working on discharge and also discussed in detail with the admitting physician Dictation was produced using Record[employer] dictation software. please excuse any grammatical, word or spelling errors. Time with Patient: Less than 30
[2023-08-04 17:06] LABS: Glucose,Whole Blood 213 mg/dL (70-110)
== END 2023-08-04 18:28 | disposition home health service (06) | DRG 853 ==
LOC: EC 16:31 → 4SSUR 18:59 → 1SOBS 07-27 19:50 → 5NMEDONC 07-30 17:15
PROVIDERS: ADMIT Student in an Organized Health Care Education/Training Program; ATTEND Student in an Organized Health Care Education/Training Program
PROC: 0QBN0ZZ Excision of Right Metatarsal, Open Approach (ICD-10-PCS; principal; 2023-07-28 16:30)
PROC: 02HV33Z Insertion of Infusion Device into Superior Vena Cava, Percutaneous Approach (ICD-10-PCS; 2023-07-31)
DX: A41.02 Sepsis due to Methicillin resistant Staphylococcus aureus (principal); I50.33 Acute on chronic diastolic (congestive) heart failure; J15.9 Unspecified bacterial pneumonia; E87.20 Acidosis, unspecified; L03.115 Cellulitis of right lower limb; E87.1 Hypo-osmolality and hyponatremia; L02.611 Cutaneous abscess of right foot; I11.0 Hypertensive heart disease with heart failure; E11.40 Type 2 diabetes mellitus with diabetic neuropathy, unspecified; E11.621 Type 2 diabetes mellitus with foot ulcer; E11.628 Type 2 diabetes mellitus with other skin complications; E11.65 Type 2 diabetes mellitus with hyperglycemia; L97.519 Non-pressure chronic ulcer of other part of right foot with unspecified severity; L03.031 Cellulitis of right toe; Z89.411 Acquired absence of right great toe; Z89.421 Acquired absence of other right toe(s); Z28.310 Unvaccinated for COVID-19; E87.8 Other disorders of electrolyte and fluid balance, not elsewhere classified; B96.89 Other specified bacterial agents as the cause of diseases classified elsewhere; L84 Corns and callosities; E78.5 Hyperlipidemia, unspecified; Z87.891 Personal history of nicotine dependence; I25.10 Atherosclerotic heart disease of native coronary artery without angina pectoris; E80.6 Other disorders of bilirubin metabolism; I45.10 Unspecified right bundle-branch block; K59.00 Constipation, unspecified; N43.3 Hydrocele, unspecified; K44.9 Diaphragmatic hernia without obstruction or gangrene; K21.9 Gastro-esophageal reflux disease without esophagitis; R26.2 Difficulty in walking, not elsewhere classified; R74.8 Abnormal levels of other serum enzymes; R33.9 Retention of urine, unspecified; Z91.141 Patient's other noncompliance with medication regimen due to financial hardship; Z59.41 Food insecurity; Z86.711 Personal history of pulmonary embolism; Z88.8 Allergy status to other drugs, medicaments and biological substances
CPT/HCPCS: 36415; 36573; 71045; 71046; 71260; 74018; 76870; 80048; 80053; 80202; 81003; 82565; 83036; 83605; 83735; 85025; 85027; 85610; 85652; 85730; 86140; 87040; 87070; 87075; 87077; 87186; 87205; 93005; 93306; 93975; 94640; 94664; 96365; 96366; 96368; 96375; 99291

== ENCOUNTER 2023-08-31 21:02 | Inpatient (IN) | payer OTHER ==
--- NOTE | 2023-08-31 21:27 | ED ---
Extremity Problem HPI - General Source: patient, RN notes reviewed Mode of arrival: wheelchair Limitations: no limitations <Melina Busby - Last Filed: 08/31/23 21:26> - General Source: RN notes reviewed, old records reviewed Mode of arrival: wheelchair Limitations: no limitations - History of Present Illness MD Complaint: extremity pain, extremity swelling -: week(s) Location: right, lower extremity, toe Radiation: proximal, distal Severity scale (1-10): 10 Quality: stabbing Consistency: constant Improves with: nothing Worsens with: nothing Associated Symptoms: denies other symptoms <Nasir Rodriguez - Last Filed: 09/01/23 05:00> - General Stated complaint: R Foot Pain-sent Homecare nurse Time Seen by Provider: 08/31/23 21:26 - History of Present Illness Initial comments: Quick note: 57-year-old male presented to the ER with a chief complaint of right foot infection. Patient sent by home wound care nurse. He states been on an ongoing problem for a long time and has had multiple digits amputated. States for the past couple days he has been having increased in pain. He also reports recent fevers and chills. (Melina Busby) This is a 57-year-old male to the ER for evaluation of severe right foot infection worsening ongoing right foot infection with multiple amputations (Nasir Rodriguez) - Related Data Previous Rx's Medication Instructions Recorded Ertapenem [INVanz] 1 gm IVPB DAILY@1700 35 Days each 08/04/23 Furosemide [Lasix] 40 mg PO BID@0900,1600 #90 tab 08/04/23 HYDROcodone/APAP 7.5-325MG [[place] 1 tab PO Q6HR PRN 3 Days #12 tab 08/04/23 7.5-325] Sennosides [Senokot] 8.6 mg PO DAILY #30 tab 08/04/23 Vancomycin 2,000 mg IVPB Q12H 35 Days each 08/04/23 glipiZIDE [Glucotrol] 5 mg PO AC-BID #90 tab 08/04/23 polyethylene glycoL 3350 [Miralax] 17 gm PO DAILY #30 packet 08/04/23 sitaGLIPtin [Januvia] 25 mg PO DAILY #90 tablet 08/04/23 Allergies Allergy/AdvReac Type Severity Reaction Status Date / Time metformin AdvReac Nausea & Verified 08/31/23 21:35 Vomiting & Diarrhea Mkfgbll-HAW-BnA Reductase AdvReac liver Verified 08/31/23 21:35 Inhibitor problems [Qrrndza-Qup-Ffb Reductase Inhibitor] Review of Systems ROS Other: All systems not noted in ROS Statement are negative. <Melina Busby - Last Filed: 08/31/23 21:26> ROS Other: All systems not noted in ROS Statement are negative. <Nasir Rodriguez - Last Filed: 09/01/23 05:00> ROS Statement: Those systems with pertinent positive or pertinent negative responses have been documented in the HPI. Past Medical History Past Medical History: Diabetes Mellitus, GERD/Reflux, Hypertension Additional Past Medical History / Comment(s): occ. pain with swallowing at times, hiatal hernia, dry skin, hx kidney stones History of Any Multi-Drug Resistant Organisms: MRSA Date of last positivie culture/infection: 08/02/23 MDRO Source:: Right Foot Past Surgical History: Orthopedic Surgery Additional Past Surgical History / Comment(s): cystoscopy/stent in urethra, olga carpal tunnel, trigger finger left thumb, rt thumb surgery, shoulder surgery Past Anesthesia/Blood Transfusion Reactions: No Reported Reaction Additional Past Anesthesia/Blood Transfusion Reaction / Comment(s): dizziness Past Psychological History: No Psychological Hx Reported Smoking Status: Former smoker Past Alcohol Use History: None Reported Past Drug Use History: None Reported - Past Family History Mother Family Medical History: Hyperlipidemia Father Family Medical History: Diabetes Mellitus <Melina Busby - Last Filed: 08/31/23 21:26> General Exam <Melina Busby - Last Filed: 08/31/23 21:26> General appearance: alert, in no apparent distress Head exam: Present: atraumatic, normocephalic, normal inspection Eye exam: Present: normal appearance, PERRL, EOMI. Absent: scleral icterus, conjunctival injection, periorbital swelling ENT exam: Present: normal exam, mucous membranes moist Neck exam: Present: normal inspection. Absent: tenderness, meningismus, lymphadenopathy Respiratory exam: Present: normal lung sounds bilaterally. Absent: respiratory distress, wheezes, rales, rhonchi, stridor Cardiovascular Exam: Present: regular rate, normal rhythm, normal heart sounds. Absent: systolic murmur, diastolic murmur, rubs, gallop, clicks GI/Abdominal exam: Present: soft, normal bowel sounds. Absent: distended, tenderness, guarding, rebound, rigid Extremities exam: Present: normal inspection, full ROM, normal capillary refill. Absent: tenderness, pedal edema, joint swelling, calf tenderness Back exam: Present: normal inspection Neurological exam: Present: alert, oriented X3, CN II-XII intact Psychiatric exam: Present: normal affect, normal mood Skin exam: Present: warm, dry, intact, normal color. Absent: rash <Nasir Rodriguez - Last Filed: 09/01/23 05:00> - General Exam Comments Initial Comments: Visual Physical Exam Vital signs reviewed General: Well-appearing, nontoxic, no acute distress. Head: Normocephalic, atraumatic Eyes: PERRLA, EOMI ENT: Airway patent Chest: Nonlabored breathing Skin: No visual rash, normal skin tone Neuro: Alert and oriented 3 Musculoskeletal: No gross abnormalities (Melina Busby) Course <Nasir Rodriguez - Last Filed: 09/01/23 05:00> Vital Signs 08/31/23 09/01/23 21:32 03:00 Temperature 98.1 F Pulse Rate 97 90 Respiratory 18 16 Rate Blood Pressure 125/77 125/79 O2 Sat by Pulse 99 99 Oximetry - Reevaluation(s) Reevaluation #1: 09/01/23 04:49 Records reviewed (Nasir Rodriguez) Reevaluation #2: 09/01/23 04:49 Symptoms unchanged (Nasir Rodriguez) Reevaluation #3: 09/01/23 04:49 Patient informed of results questions answered (Nasir Rodriguez) Reevaluation #4: Was pt. sent in by a medical professional or institution (, PA, RESOURCE PROTECTION SPECIALIST, urgent care, hospital, or skilled nursing...) When possible be specific @ -no Did you speak to anyone other than the patient for history (EMS, parent, family, police, friend...)? What history was obtained from this source @ -no Did you review nursing and triage notes (agree or disagree)? Why? @ -agree Are old charts reviewed (outside hosp., previous admission, EMS record, old EKG, old radiological studies, urgent care reports/EKG's, skilled nursing records)? Report findings @ -yes Differential Diagnosis (chest pain, altered mental status, abdominal pain women, abdominal pain men, vaginal bleeding, weakness, fever, dyspnea, syncope, headache, dizziness, GI bleed, back pain, seizure, CVA, palpatations, mental he alth, musculoskeletal)? @ -prior EKG interpreted by me (3pts min.). @ -yes X-rays interpreted by me (1pt min.). @ -yes negative for acute disease CT interpreted by me (1pt min.). @ -no U/S interpreted by me (1pt. min.). @ -no What testing was considered but not performed or refused? (CT, X-rays, U/S, labs)? Why? @ -none What meds were considered but not given or refused? Why? @ -none Did you discuss the management of the patient with other professionals (professionals i.e. , PA, RESOURCE PROTECTION SPECIALIST, lab, RT, psych nurse, social work professor, track walker, teacher, patrol officer, showcase trimmer)? Give summary @ -no Was smoking cessation discussed for >3mins.? @ -no Was critical care preformed (if so, how long)? @ -no Were there social determinants of health that impacted care today? How? (Homelessness, low income, unemployed, alcoholism, drug addiction, transportation, low edu. Level, literacy, decrease access to med. care, alf, rehab)? @ -none Was there de-escalation of care discussed even if they declined (Discuss DNR or withdrawal of care, Hospice)? DNR status @ -no What co-morbidities impacted this encounter? (DM, HTN, Smoking, COPD, CAD, Cancer, CVA, ARF, Chemo, Hep., AIDS, mental health diagnosis, sleep apnea, morbid obesity)? @ -none Was patient admitted / discharged? Hospital course, mention meds given and route, prescriptions, significant lab abnormalities, going to OR and other pe rtinent info. @ - Undiagnosed new problem with uncertain prognosis? @ -no Drug Therapy requiring intensive monitoring for toxicity (Heparin, Nitro, Insulin, Cardizem)? @ -no Were any procedures done? @ -no Diagnosis/symptom? @ - Acute, or Chronic, or Acute on Chronic? @ -Acute Uncomplicated (without systemic symptoms) or Complicated (systemic symptoms)? @ -Complicated Side effects of treatment? @ -no Exacerbation, Progression, or Severe Exacerbation? @ -exacerbation Poses a threat to life or bodily function? How? (Chest pain, USA, MT, pneumonia, PE, COPD, DKA, ARF, appy, cholecystitis, CVA, Diverticulitis, Homicidal, Suicidal, threat to staff... and all critical care pts) @ -yes (Nasir Rodriguez) - Consultations Consultation #1: Spoke with sound who agreed to admit this patient (Nasir Rodriguez) Medical Decision Making <Melina Busby - Last Filed: 08/31/23 21:26> - Lab Data Result diagrams: 08/31/23 22:18 08/31/23 22:18 - Radiology Data Radiology results: report reviewed (X-ray foot is positive for significant edema osteomyelitis), image reviewed <Nasir Rodriguez - Last Filed: 09/01/23 05:00> - Medical Decision Making I performed the quick note portion of this chart. Electronically signed by Melina Busby PA-C (Melina Busby) 57 male will be admitted for IV antibiotics reevaluation by both infectious disease and vascular surgery for failure of outpatient treatment of right lower extremity significant cellulitis and osteomyelitis (Nasir Rodriguez) - Lab Data Lab Results 08/31/23 08/31/23 08/31/23 Range/Units 22:18 22:18 22:18 WBC 12.6 H (3.8-10.6) k/uL RBC 4.33 (4.30-5.90) m/uL Hgb 11.6 L (13.0-17.5) gm/dL Hct 37.6 L (39.0-53.0) % MCV 86.7 (80.0-100.0) fL MCH 26.8 (25.0-35.0) pg MCHC 30.9 L (31.0-37.0) g/dL RDW 14.1 (11.5-15.5) % Plt Count 390 (150-450) k/uL MPV 7.2 Neutrophils % 73 % Lymphocytes % 16 % Monocytes % 5 % Eosinophils % 4 % Basophils % 1 % Neutrophils # 9.2 H (1.3-7.7) k/uL Lymphocytes # 2.0 (1.0-4.8) k/uL Monocytes # 0.7 (0-1.0) k/uL Eosinophils # 0.5 (0-0.7) k/uL Basophils # 0.1 (0-0.2) k/uL Sodium 136 L (137-145) mmol/L Potassium 3.7 (3.5-5.1) mmol/L Chloride 104 (98-107) mmol/L Carbon Dioxide 25 (22-30) mmol/L Anion Gap 7 mmol/L BUN 10 (9-20) mg/dL Creatinine 0.93 (0.66-1.25) mg/dL Est GFR (CKD-EPI)AfAm >90 (>60 ml/min/1.73 sqM) Est GFR (CKD-EPI)NonAf >90 (>60 ml/min/1.73 sqM) Glucose 286 H (74-99) mg/dL Plasma Lactic Acid Mike 1.3 (0.7-2.0) mmol/L Calcium 9.2 (8.4-10.2) mg/dL Total Bilirubin 0.4 (0.2-1.3) mg/dL AST 17 (17-59) U/L ALT 13 (4-49) U/L Alkaline Phosphatase 133 H (38-126) U/L Total Protein 6.9 (6.3-8.2) g/dL Albumin 3.6 (3.5-5.0) g/dL Disposition <Melina Busby - Last Filed: 08/31/23 21:26> Is patient prescribed a controlled substance at d/c from ED?: No Time of Disposition: 04:40 <Nasir Rodriguez - Last Filed: 09/01/23 05:00> Clinical Impression: Osteomyelitis of toe of right foot, Diabetic ulcer of right foot, Failure of outpatient treatment, Osteomyelitis, Diabetic foot infection, Cellulitis Disposition: ADMITTED IP TO THIS HOSP Condition: Serious Referrals: Deyvi Hurtado MD [Primary Care Provider] - 1-2 days
[2023-08-31 22:31] LABS: Basophils # (A) 0.1 k/uL (0-0.2); Basophils % (A) 1 %; Eosinophils # (A) 0.5 k/uL (0-0.7); Eosinophils % (A) 4 %; HCT 37.6 % (39.0-53.0); HGB 11.6 gm/dL (13.0-17.5); Lymphocytes % (A) 16 %; MCH 26.8 pg (25.0-35.0); MCHC 30.9 g/dL (31.0-37.0); MCV 86.7 fL (80.0-100.0); Mean Platelet Volume 7.2; Monocytes # (A) 0.7 k/uL (0-1.0); Monocytes % (A) 5 %; Neutrophils # (A) 9.2 k/uL (1.3-7.7); Neutrophils % (A) 73 %; Platelet Count 390 k/uL (150-450); RBC 4.33 m/uL (4.30-5.90); RDW 14.1 % (11.5-15.5); WBC 12.6 k/uL (3.8-10.6)
[2023-08-31 22:43] LABS: ALT 13 U/L (4-49); AST 17 U/L (17-59); African American GFR (CKD) >90 (>60 ml/min/1.73 sqM); Albumin 3.6 g/dL (3.5-5.0); Alkaline Phosphatase 133 U/L (38-126); Anion Gap 7 mmol/L; Blood Urea Nitrogen 10 mg/dL (9-20); Calcium 9.2 mg/dL (8.4-10.2); Carbon Dioxide 25 mmol/L (22-30); Chloride 104 mmol/L (98-107); Glucose 286 mg/dL (74-99); Non-African American GFR(CKD) >90 (>60 ml/min/1.73 sqM); Potassium 3.7 mmol/L (3.5-5.1); Sodium 136 mmol/L (137-145); Total Bilirubin 0.4 mg/dL (0.2-1.3); Total Protein 6.9 g/dL (6.3-8.2)
--- NOTE | 2023-09-01 00:35 | XR ---
EXAM: XR Right Foot Complete, 3 or More Views CLINICAL HISTORY: ITS.REASON XR Reason: wound TECHNIQUE: Frontal, lateral and oblique views of the right foot. COMPARISON: None FINDINGS: Bones/joints: Amputation of the first and second toe. At third MCP joint subluxation. Periarticular osseous demineralization. Likely subtle nondisplaced transverse fractures of the third and fourth proximal metatarsals. No dislocation. Soft tissues: Marked inflammatory diffuse soft tissue edema/swelling of the amputation stump and predominantly dorsum of the foot with a 2.5 cm subcutaneous ulcer. A partially calcified plantar fasciitis. A tiny plantar calcaneal spur. No radiopaque foreign body. . IMPRESSION: Amputation of the first and second toes. Subluxation of third MCP joint. Inflammatory soft tissue edema/swelling of the amputation bed and diffusely of the right foot with a 2.5 cm subcutaneous ulceration in dorsum of the midfoot. Likely subtle nondisplaced transverse fractures proximally of the third and fourth metatarsals. Clinical correlation advised. .
[2023-09-01] MEDS ORDERED: VANCOMYCIN IV PER PHARMACY 1 EACH MISC MISCELLANE PRN ×2 (04:46→07:05)
[2023-09-01] MEDS ORDERED: NALOXONE 0.4 MG/ML 1 ML VIAL IV PRN (04:46)
[2023-09-01] MEDS: PIPERACILLIN-TAZOBACTAM 3.375 GM in SODIUM CHLORIDE 0.9% 100 ML IVPB STA (05:49)
[2023-09-01] MEDS: SODIUM CHLORIDE 0.9% 1,000 ML IV SCH (05:49)
[2023-09-01] MEDS: HYDROmorphone 1 MG/ML 1 ML SYRINGE IVP STA (05:49)
[2023-09-01] MEDS ORDERED: VANCOMYCIN 2,000 MG in SODIUM CHLORIDE 0.9% 500 ML 500 ML IVPB SCH (06:00)
[2023-09-01] MEDS: VANCOMYCIN 1,750 MG in SODIUM CHLORIDE 0.9% 500 ML 500 ML IVPB SCH ×2 (06:54→20:45)
[2023-09-01] MEDS ORDERED: DEXTROSE 50% SYRINGE 50 ML IVP PRN ×2 (07:04)
[2023-09-01] MEDS ORDERED: ACETAMINOPHEN TAB 325 MG TAB PO PRN (07:19)
--- NOTE | 2023-09-01 07:29 | P.HPIM ---
History of Present Illness H&P Date: 09/01/23 Chief Complaint: right foot ulcer 57-year-old male with diabetes mellitus, acute diastolic CHF Patient coming in for evaluation of right foot diabetic foot ulcer, he was disc harged from the hospital after being diagnosed with osteomyelitis August 03 about a month ago with the plan to be kept on antibiotics for 5 weeks with Invanz and vancomycin he reports that over the past few days he noticed increased swelling and heat and warmth over the right foot with shooting pain all the way up to the right groin. His wound care nurse was concerned regarding worsening infection a nd suggested he comes into the hospital for evaluation. Of note he had an appointment with his vascular surgeon tomorrow but he felt that he could not wait any longer. He also reports some episodes of fever at home denies any chest pain trouble breathing coughing denies any abdominal pain nausea vomiting. He does report history of C. difficile and believes that he has another episode associated as he is having mucousy diarrhea with specks of blood. Again denies any nausea vomiting or abdominal pain review of systems Pertinent positives as noted in HPI. All other systems were reviewed and are negative on exam Constitutional: No acute distress, conversant, pleasant Eyes: Anicteric sclerae, moist conjunctiva, Pupils equal round reactive to light ENMT: NC/AT Oropharynx clear, no erythema, or exudates Lungs: Clear to auscultation Clear to percussion Normal respiratory effort, no accessory muscle use Cardiovascular: Heart regular in rate and rhythm, No murmurs, gallops, or rubs trace right lower extremity edema Abdominal: Soft Nontender, no guarding, rebound or rigidity Abdomen moving with respiration Normoactive bowel sounds Extremities: Significant ulceration of the distal right foot with significant swelling, with chronic lower extremity skin changes, amputation of the right big and second toe No digital cyanosis Pedal pulses intact and symmetrical Radial pulses intact and symmetrical No calf tenderness Psychiatric: Alert and oriented to person, place and time Appropriate affect fair judgement Neuro Muscles Strength 5/5 in all 4 extremities Sensation to light touch grossly present throughout Cranial nerves II-XII grossly intact Past Medical History Past Medical History: Diabetes Mellitus, GERD/Reflux, Hypertension Additional Past Medical History / Comment(s): occ. pain with swallowing at times, hiatal hernia, dry skin, hx kidney stones History of Any Multi-Drug Resistant Organisms: MRSA Date of last positivie culture/infection: 08/02/23 MDRO Source:: Right Foot Past Surgical History: Orthopedic Surgery Additional Past Surgical History / Comment(s): cystoscopy/stent in urethra, olga carpal tunnel, trigger finger left thumb, rt thumb surgery, shoulder surgery Past Anesthesia/Blood Transfusion Reactions: No Reported Reaction Additional Past Anesthesia/Blood Transfusion Reaction / Comment(s): dizziness Past Psychological History: No Psychological Hx Reported Smoking Status: Former smoker Past Alcohol Use History: None Reported Past Drug Use History: None Reported - Past Family History Mother Family Medical History: Hyperlipidemia Father Family Medical History: Diabetes Mellitus Medications and Allergies Home Medications Medication Instructions Recorded Confirmed Type Ertapenem [INVanz] 1 gm IVPB DAILY@1700 35 Days each 08/04/23 Rx Furosemide [Lasix] 40 mg PO BID@0900,1600 #90 tab 08/04/23 Rx HYDROcodone/APAP 7.5-325MG [[facility] 1 tab PO Q6HR PRN 3 Days #12 tab 08/04/23 Rx 7.5-325] Sennosides [Senokot] 8.6 mg PO DAILY #30 tab 08/04/23 Rx Vancomycin 2,000 mg IVPB Q12H 35 Days each 08/04/23 Rx glipiZIDE [Glucotrol] 5 mg PO AC-BID #90 tab 08/04/23 Rx polyethylene glycoL 3350 [Miralax] 17 gm PO DAILY #30 packet 08/04/23 Rx sitaGLIPtin [Januvia] 25 mg PO DAILY #90 tablet 08/04/23 Rx Allergies Allergy/AdvReac Type Severity Reaction Status Date / Time metformin AdvReac Nausea & Verified 08/31/23 21:35 Vomiting & Diarrhea Vawzelt-NNN-JfT Reductase AdvReac liver Verified 08/31/23 21:35 Inhibitor problems [Wjieqcu-Rvo-Los Reductase Inhibitor] Physical Exam Vitals: Vital Signs Temp Pulse Resp BP Pulse Ox 09/01/23 06:00 88 18 107/74 98 09/01/23 03:00 90 16 125/79 99 08/31/23 21:32 98.1 F 97 18 125/77 99 Intake and Output 08/31/23 09/01/23 09/01/23 22:59 06:59 14:59 Other: Weight 86.183 kg Results CBC & Chem 7: 08/31/23 22:18 08/31/23 22:18 Labs: Abnormal Lab Results - Last 24 Hours (Table) 08/31/23 08/31/23 Range/Units 22:18 22:18 WBC 12.6 H (3.8-10.6) k/uL Hgb 11.6 L (13.0-17.5) gm/dL Hct 37.6 L (39.0-53.0) % MCHC 30.9 L (31.0-37.0) g/dL Neutrophils # 9.2 H (1.3-7.7) k/uL Sodium 136 L (137-145) mmol/L Glucose 286 H (74-99) mg/dL Alkaline Phosphatase 133 H (38-126) U/L Assessment and Plan Assessment: 57-year-old male with diabetes mellitus, diastolic CHF coming in with worsening wound infection of right diabetic foot ulcer currently on IV antibiotics at home for the past 4 weeks since discharge from the hospital after diagnosis of osteomyelitis I discussed the case with ED doctor and accepted the admission for worsening right diabetic foot ulcer for vascular surgery evaluation IV antibiotics with anticipated length of stay more than 2 midnights Right diabetic foot ulcer with osteomyelitis Follow-up cultures Vancomycin dosing by pharmacy Zosyn 3.375 grams IV piggyback every 8 hours Tylenol 650 mg p.o. as needed for fever Vascular surgery consult Leukocytosis with white count of 12.6 afebrile Frequent diarrhea with specks of blood rule out C. difficile Patient reports history of C. difficile Check C. difficile Contact precautions Diabetes mellitus Insulin sliding scale Mild anemia Hemoglobin 11.6 Continue to monitor Check FOBT Renal function unremarkable Sodium 136 potassium 3.7 BUN 10 creatinine 0.9 Full code DVT prophylaxis heparin subcu 3 times daily 5000 units
[2023-09-01 07:51] LABS: Glucose,Whole Blood 168 mg/dL (70-110)
[2023-09-01] MEDS: PIPERACILLIN-TAZOBACTAM 3.375 GM in SODIUM CHLORIDE 0.9% 100 ML IVPB SCH (08:28)
[2023-09-01] MEDS: INSULIN ASPART (NovoLOG) 100 UNIT/ML VIAL SQ SCH (08:28)
[2023-09-01] MEDS: HEPARIN SODIUM,PORCINE 5,000 UNIT/ML 1 ML VIAL SQ SCH (08:29)
--- NOTE | 2023-09-01 09:09 | P.PN ---
Subjective Progress Note Date: 09/01/23 Hospital course: Patient is a very pleasant 57-year-old male with a past medical history of hypertension, type II gvj-fltthqm-pwijdazdk diabetes mellitus, GERD, diastolic heart failure, moderate to severe pulmonary hypertension, osteomyelitis status post amputation of first and second toes and partial amputation of third toe. Patient recently hospitalized from 07/26/2023 through 08/04/2023 secondary to osteomyelitis and sepsis due to infected diabetic foot ulcer with MRSA bacteremia. During this hospitalization patient underwent I&D of infected foot ulcer on 07/28/2023 and was discharged home on IV antibiotics with Invanz and vancomycin. However, patient reported that he began noticing increased swelling, warmth, and redness over right foot with pain now extending up into his groin and his wound care nurse was concerned that his infection is worsening and sent him to the hospital for evaluation. Upon arrival to our facility, holli garcia underwent evaluation in the emergency department. Vital signs upon arrival show blood pressure 125/77, heart rate 97, respiratory rate 18, temp 98.1 F, and SpO2 of 99% on room air. Labs were completed and reviewed. CBC showing leukocytosis with WBC count of 12.6 and stable normocytic anemia with hemoglobin of 11.6. BMP showing hyperglycemia with glucose of 286 otherwise normal findings. Lactic acid was 1.3. Liver profile showing elevated alkaline phosphatase of 133 otherwise normal findings. X-ray right foot was completed showing inflammatory soft tissue edema/swelling of the amputation bed and diffusely of the right foot with a 2.5 cm subcutaneous ulceration and dorsum of midfoot and concerns of subtle nondisplaced transverse fractures of the proximal third and fourth metatarsals. Patient was admitted under our services for worsening infection of right foot diabetic ulcer. Consults placed to vascular surgery and infectious disease. Physical exam: Vital signs reviewed and stable. General: Nontoxic, no distress and appears stated age. Derm: Skin warm and dry, normal coloration for ethnicity. Head: Atraumatic, normocephalic and symmetric. Eyes: EOMs intact, no lid lag, and anicteric sclera Mouth: no lip lesions, mucus membranes moist Cardiovascular: regular rate and rhythm with normal S1S2, soft systolic murmur, positive posterior tibial pulses bilaterally, and cap refill < 2 seconds. Lungs: Respirations even, regular, and unlabored on room air. Lungs CTA bilaterally, no rhonchi, no rales, no wheezing, and no accessory muscle usage. Abdominal: soft, nontender to palpation, no guarding, no appreciable organ omegaly Ext: No gross muscle atrophy, no edema, no contractures. Dressing in place right foot currently clean, dry, and intact. Neuro: Speech clear, face symmetrical and CN II-XII grossly intact with no noted focal neuro deficits Psych: Alert and oriented to person, place, time, and situation. Appropriate and pleasant affect. Assessment and Plan of Care: Infected right foot diabetic ulcer with osteomyelitis Diabetes mellitus with hyperglycemia Continue IV antibiotics with Invanz 1 g daily and vancomycin 1750 mg twice daily. Will monitor renal function and vancomycin trough closely to watch for any signs/symptoms of vancomycin associated renal toxicity. Consult placed to vascular surgery for evaluation. Consult placed to infectious disease. Hold Jardiance and placed patient on glycemic protocol with NovoLog sliding scale to maintain tight glycemic control throughout hospitalization. Most re cent hemoglobin A1c was drawn on 07/28/2023 resulting at 7.7%. Symptomatic care and pain management with Tylenol 650 mg every 4 hours as needed for mild pain/fever, [place] 5/325 mg every 4 hours as needed for moderate pain, and morphine 4 mg IVP every 4 hours as needed for severe pain. Wound/dressing management. Order placed for ESR and CRP. Hypertension Hyperlipidemia Chronic diastolic heart failure Moderate to severe pulmonary hypertension Patient to continue daily medication regimen with lisinopril/hydrochlorothiazide 20-12.5 mg tablets daily. GERD Continue GI prophylaxis with omeprazole 20 mg twice daily. Data and imaging reviewed: Vital signs reviewed. Blood pressure 129/86, heart rate 72, respiratory rate 16, SpO2 97% on room air Labs were completed and reviewed. CBC showing leukocytosis with WBC count of 12.6 and stable normocytic anemia with hemoglobin of 11.6. BMP showing hyperglycemia with glucose of 286 otherwise normal findings. Lactic acid was 1.3. Liver profile showing elevated alkaline phosphatase of 133 otherwise normal findings. X-ray right foot was completed showing inflammatory soft tissue edema/swelling of the amputation bed and diffusely of the right foot with a 2.5 cm subcutaneous ulceration and dorsum of midfoot and concerns of subtle nondisplaced transverse fractures of the proximal third and fourth metatarsals. Patient was admitted under our services for worsening infection of right foot diabetic ulcer. Patient requesting to be evaluated by a different vascular surgeon, states that he follows with Dr. Kimble requesting a second opinion at this time. Called and discussed case with vascular surgery SEARCH ENGINE OPTIMIZATION MANAGER per vascular surgeon, Dr. San will evaluate patient. CODE STATUS: Full code DVT prophylaxis: Heparin Anticipated discharge date: Pending clinical course Anticipated discharge place: Pending clinical course, likely home Patient was seen independently by Nurse Pracitioner. This document was prepared using [employer] dictation software. Please allow for e rrors in crop or grain farmer, while rare they do occur. I reviewed the documentation as provided by the BRIANNA above, who is the original author of this note. I agree with the documented assessment and plan, with the following changes: none Objective - Vital Signs Vital signs: Vital Signs Temp 98.1 F 08/31/23 21:32 Pulse 88 09/01/23 06:00 Resp 18 09/01/23 06:00 BP 107/74 09/01/23 06:00 Pulse Ox 98 09/01/23 06:00 FiO2 Intake & Output 08/31/23 09/01/23 09/01/23 18:59 06:59 18:59 Weight 86.183 kg - Labs CBC & Chem 7: 09/02/23 07:41 09/02/23 07:41 Labs: Abnormal Lab Results - Last 24 Hours (Table) 08/31/23 08/31/23 09/01/23 Range/Units 22:18 22:18 07:49 WBC 12.6 H (3.8-10.6) k/uL Hgb 11.6 L (13.0-17.5) gm/dL Hct 37.6 L (39.0-53.0) % MCHC 30.9 L (31.0-37.0) g/dL Neutrophils # 9.2 H (1.3-7.7) k/uL Sodium 136 L (137-145) mmol/L Glucose 286 H (74-99) mg/dL POC Glucose (mg/dL) 168 H (70-110) mg/dL Alkaline Phosphatase 133 H (38-126) U/L
[2023-09-01] MEDS: ERTAPENEM 1 GM in SODIUM CHLORIDE 0.9% 50 ML IVPB SCH (10:29)
[2023-09-01] MEDS ORDERED: HYDROcodone/APAP 5-325MG 1 EACH TAB PO PRN (11:16)
--- NOTE | 2023-09-01 12:26 | P.GSCN ---
History of Present Illness Consult date: 09/01/23 Reason for Consult: Request second opinion Requesting physician: Serge Mcneill History of present illness: Pleasant 57-year-old male with a history of diabetes mellitus and chronic wounds to the right foot with history of first and second toe amputation. We were asked to see patient for a second opinion. He has been following with previous vascular surgeon however would like second opinion about moving forward with care. States he has been diabetic since 2011. Also has history of hypertension, GERD, C. difficile infection and MRSA. He states that he has a home care nurse that has been coming and changing his dressings. He was supposed to see his vascular surgeon tomorrow however he was having more pain in his foot and that he had some redness and low-grade fever and wanted to come in for further evaluation. States in the past his blood sugars have been very poorly controlled and hemoglobin A1c was as high as 15. States he is on Jardiance and supposed to be on Mounjaro however it is on backorder and he has not been taking it. States his most recent A1c was 8.6. He has been following with infectious disease for osteomyelitis currently on IV Ancef and and has a PICC line vancomycin. His last surgical debridement was 07/28/2023 of right foot plantar callus and dorsal wound to the bone, head of metatarsal also removed according to op note. Patient is afebrile. Is currently reporting pain in foot with palpation is states that he has pain up in his right calf. He denies any shortness of breath, chest pain, abdominal pain, nausea or vomiting. No fever or chills at this time. Has been having increased diarrhea. Review of Systems A 14 point review systems was completed all pertinent positives and negatives as stated in the HPI. Past Medical History Past Medical History: Diabetes Mellitus, GERD/Reflux, Hypertension Additional Past Medical History / Comment(s): occ. pain with swallowing at ti mes, hiatal hernia, dry skin, hx kidney stones History of Any Multi-Drug Resistant Organisms: MRSA Year Discovered:: 08/02/23 MDRO Source:: Right Foot Past Surgical History: Orthopedic Surgery Additional Past Surgical History / Comment(s): cystoscopy/stent in urethra, olga carpal tunnel, trigger finger left thumb, rt thumb surgery, shoulder surgery Past Anesthesia/Blood Transfusion Reactions: No Reported Reaction Additional Past Anesthesia/Blood Transfusion Reaction / Comm: dizziness Past Psychological History: No Psychological Hx Reported Smoking Status: Former smoker Past Alcohol Use History: None Reported Past Drug Use History: None Reported - Past Family History Mother Family Medical History: Hyperlipidemia Father Family Medical History: Diabetes Mellitus Medications and Allergies Home Medications Medication Instructions Recorded Confirmed Type Ertapenem [INVanz] 1 gm IVPB DAILY@1700 35 Days each 08/04/23 09/01/23 Rx Vancomycin 2,000 mg IVPB Q12H 35 Days each 08/04/23 09/01/23 Rx Empagliflozin [Jardiance] 25 mg PO DAILY 09/01/23 09/01/23 History Lisinopril-Hctz 20-12.5 mg 1 tab PO DAILY 09/01/23 09/01/23 History [Zestoretic 20-12.5] Omeprazole [PriLOSEC] 20 mg PO BID 09/01/23 09/01/23 History Allergies Allergy/AdvReac Type Severity Reaction Status Date / Time metformin AdvReac Nausea & Verified 09/01/23 08:00 Vomiting & Diarrhea Zndesie-XQW-SoX Reductase AdvReac liver Verified 09/01/23 08:00 Inhibitor problems [Jxjcnqk-Zqd-Vuc Reductase Inhibitor] Surgical - Exam Vital Signs Temp Pulse Resp BP Pulse Ox 98.1 F 97 18 125/77 99 08/31/23 21:32 08/31/23 21:32 08/31/23 21:32 08/31/23 21:32 08/31/23 21:32 General appearance: The patient is alert, oriented, appears in no acute distress. HET: Head is normocephalic and atraumatic. Pupils are equal and reactive. Neck: Supple. Heart: Regular. Lungs: Equal expansion, normal respiratory effort. Abdomen: Soft, nontender, nondistended. Extremities: Bilateral lower extremity swelling with venous stasis dermatitis. Palpable PT and DP pulses. Right foot with previous first and second toe amputation healed with ulcer to medial aspect. Wound to mid dorsal aspect of foot as well as plantar aspect down to bone. No drainage, foul odor or redness noted. coal washer tender to palpation. Calf tender with squeezing. Rocker-bottom foot. Neurological: No focal deficits. Strength and sensation are grossly intact. Results - Labs 08/31/23 22:18 08/31/23 22:18 Abnormal Lab Results - Last 24 Hours (Table) 08/31/23 08/31/23 09/01/23 Range/Units 22:18 22:18 07:49 WBC 12.6 H (3.8-10.6) k/uL Hgb 11.6 L (13.0-17.5) gm/dL Hct 37.6 L (39.0-53.0) % MCHC 30.9 L (31.0-37.0) g/dL Neutrophils # 9.2 H (1.3-7.7) k/uL Sodium 136 L (137-145) mmol/L Glucose 286 H (74-99) mg/dL POC Glucose (mg/dL) 168 H (70-110) mg/dL Alkaline Phosphatase 133 H (38-126) U/L Diabetes panel 08/31/23 Range/Units 22:18 Sodium 136 L (137-145) mmol/L Potassium 3.7 (3.5-5.1) mmol/L Chloride 104 (98-107) mmol/L Carbon Dioxide 25 (22-30) mmol/L BUN 10 (9-20) mg/dL Creatinine 0.93 (0.66-1.25) mg/dL Glucose 286 H (74-99) mg/dL Calcium 9.2 (8.4-10.2) mg/dL AST 17 (17-59) U/L ALT 13 (4-49) U/L Alkaline Phosphatase 133 H (38-126) U/L Total Protein 6.9 (6.3-8.2) g/dL Albumin 3.6 (3.5-5.0) g/dL Calcium panel 08/31/23 Range/Units 22:18 Calcium 9.2 (8.4-10.2) mg/dL Albumin 3.6 (3.5-5.0) g/dL Pituitary panel 08/31/23 Range/Units 22:18 Sodium 136 L (137-145) mmol/L Potassium 3.7 (3.5-5.1) mmol/L Chloride 104 (98-107) mmol/L Carbon Dioxide 25 (22-30) mmol/L BUN 10 (9-20) mg/dL Creatinine 0.93 (0.66-1.25) mg/dL Glucose 286 H (74-99) mg/dL Calcium 9.2 (8.4-10.2) mg/dL Adrenal panel 08/31/23 Range/Units 22:18 Sodium 136 L (137-145) mmol/L Potassium 3.7 (3.5-5.1) mmol/L Chloride 104 (98-107) mmol/L Carbon Dioxide 25 (22-30) mmol/L BUN 10 (9-20) mg/dL Creatinine 0.93 (0.66-1.25) mg/dL Glucose 286 H (74-99) mg/dL Calcium 9.2 (8.4-10.2) mg/dL Total Bilirubin 0.4 (0.2-1.3) mg/dL AST 17 (17-59) U/L ALT 13 (4-49) U/L Alkaline Phosphatase 133 H (38-126) U/L Total Protein 6.9 (6.3-8.2) g/dL Albumin 3.6 (3.5-5.0) g/dL - Imaging Comments: Right foot x-ray impression reads amputation of first and second toes. Subluxation of third MCP joint. Inflammatory soft tissue edema/swelling of the amputation bed and diffusely of the right foot with a 2.5 cm subcutaneous ulceration in the dorsum of the mid foot. Likely subtle nondisplaced transverse fractures approximately of the third and fourth metatarsals clinical correlation advised. Assessment and Plan Assessment: 1. Nonhealing wound to right foot with previous surgical debridement 07/28/2023 2. Previous history of right first and second toe amputation 3. Diabetes mellitus 4. Recent diagnosis osteomyelitis on IV antibiotics 5. Venous stasis with venous dermatitis Plan: 1. Consult to [facility] wound clinic for recommendations of local wound care and outpatient follow-up 2. Continue with recommendations from infectious disease 3. Agree with obtaining stool for C. difficile 4. Further recommendations forthcoming per vascular surgeon 5. Rest of medical management per primary medical team Thank you for this consultation, we will continue to follow. The impression and plan of care has been dictated as directed. I performed a history and examination of this patient, discussed the same with the dictator. I agree with the dictator's note ,documented as a scribe. Any additional findings or plans will be noted.
[2023-09-01 12:28] LABS: Glucose,Whole Blood 158 mg/dL (70-110)
[2023-09-01 12:32] LABS: ALT 11 U/L (4-49); African American GFR (CKD) >90 (>60 ml/min/1.73 sqM); Albumin 3.3 g/dL (3.5-5.0); Anion Gap 8 mmol/L; Blood Urea Nitrogen 11 mg/dL (9-20); C Reactive Protein 5.9 mg/dL (<1.0); Calcium 8.8 mg/dL (8.4-10.2); Carbon Dioxide 21 mmol/L (22-30); Chloride 108 mmol/L (98-107); Globulin 3.2 g/dL; Glucose 163 mg/dL (74-99); Non-African American GFR(CKD) >90 (>60 ml/min/1.73 sqM); Sodium 137 mmol/L (137-145); Total Bilirubin 0.6 mg/dL (0.2-1.3); Total Protein 6.5 g/dL (6.3-8.2)
[2023-09-01 12:33] LABS: HCT 37.4 % (39.0-53.0); HGB 11.9 gm/dL (13.0-17.5); MCHC 31.7 g/dL (31.0-37.0); MCV 88.3 fL (80.0-100.0); Mean Platelet Volume 7.1; Platelet Count 336 k/uL (150-450); Potassium 4.1 mmol/L (3.5-5.1); RBC 4.24 m/uL (4.30-5.90); RDW 14.2 % (11.5-15.5); WBC 9.7 k/uL (3.8-10.6)
[2023-09-01 12:34] LABS: AST 20 U/L (17-59); Alkaline Phosphatase 108 U/L (38-126)
[2023-09-01] MEDS: PANTOPRAZOLE 40 MG TABLET PO SCH (12:50)
--- NOTE | 2023-09-01 12:51 | US ---
EXAMINATION TYPE: US venous doppler duplex LE RT DATE OF EXAM: 09/01/2023 12:15 PM COMPARISON: NONE CLINICAL INDICATION: Male, 57 years old with history of Right calf pain; Hx ?DVT, seen at [facility] 6 months ago - DX with PE unsure of origin SIDE PERFORMED: Right TECHNIQUE: The lower extremity deep venous system is examined utilizing real time linear array sonog caroline with graded compression, doppler sonography and color-flow sonography. VESSELS IMAGED: Common Femoral Vein Deep Femoral Vein Greater Saphenous Vein * Femoral Vein Popliteal Vein Small Saphenous Vein * Proximal Calf Veins Posterior tibial veins (* superficial vessels) Right Leg: Negative for DVT. Subcutaneous edema noted at the knee and calf. Mildly enlarged lymph nodes noted at the right inguinal region measuring up to 2.9 x 1.9 x 1.7 cm. IMPRESSION: 1. No evidence for DVT right lower extremity. 2. Soft tissue swelling at and below the knee. 3. Some right inguinal lymphadenopathy measuring up to 1.9 cm short axis may be reactive/post inflamm atory. Consider follow-up ultrasound in 2-3 months to ensure resolution.
--- NOTE | 2023-09-01 13:04 | US ---
EXAMINATION TYPE: US arterial LE multi level DATE OF EXAM: 09/01/2023 11:52 AM CLINICAL INDICATION: Male, 57 years old with history of Nonhealing wound right right foot, diabetes; Non healing wound right foot, right foot pain, multiple right toes removed History of: Smoker: Previous Hypertension: Yes Diabetic: Yes Hyperlipidemia: No TIA/CVA: No Previous Vascular Surgery: No SD: No Doppler Waveforms: Right: Multiphasic Left: Multiphasic Pressure Gradients: Right Brachial Pressure: Deferred due to IV Left Brachial Pressure: 94 Ankle-Brachial Indices: Right: 1.74 Left: 1.55 (Vessel hardening > 1.4; Normal 0.9 - 1.4, Moderate 0.7 - 0.9, Severe 0.5-0.7) IMPRESSION: Ankle-brachial indices compatible with vessel hardening.
[2023-09-01] MEDS: MORPHINE SULFATE 4 MG/ML SYRINGE IV PRN (13:41)
[2023-09-01 15:18] LABS: Erythrocyte Sedimentation Rate 45 mm/Hr (0-20)
[2023-09-01] MEDS: LISINOPRIL-HCTZ 20-12.5 MG 1 EACH TAB PO SCH (15:25)
[2023-09-01 16:58] LABS: Glucose,Whole Blood 181 mg/dL (70-110)
[2023-09-01 20:41] LABS: Glucose,Whole Blood 221 mg/dL (70-110)
--- NOTE | 2023-09-01 21:59 | P.CONS ---
History of Present Illness - Reason for Consult Consult date: 09/01/23 Osteo Requesting physician: Nasir Rodriguez - Chief Complaint Right foot swelling and redness x days - History of Present Illness Patient is a 57-year-old male with a past medical history significant for diabetes mellitus reflux hypertension patient did have a history of diabetic foot infection with recent admission to the hospital with left diabetic foot infection with an abscess in this patient who status post extensive debridement of the wound down to the wound by vascular surgery on 07/28/2023 cultures were positive for MRSA and Enterobacter patient did get a PICC line and was getting vancomycin and Invanz in the outpatient setting patient was brought into the ER last night per recommendation of home care nurse concerning for worsening cellulitis to the left foot patient be complaining of worsening pain to the left foot area describing it to be sharp throbbing almost 10 out of 10 in severity with associated swelling redness denies any fever or any chills no fever was recorded on presentation to the hospital and no fever afterwards patient was not tachycardic hypotensive or hypoxic patient did have a white count of 12 point 6 repeat is down to 9.7 sed rate is 45 and creatinine 0.73 liver enzymes are normal patient did not have any local cultures or blood cultures done by the ER physician has been started on vancomycin and Zosyn infectious disease was consulted regarding osteomyelitis antibiotic therapy Review of Systems Positive point and negatives has been mentioned in the HPI, complete review of systems was performed and all other systems are negative Past Medical History Past Medical History: Diabetes Mellitus, GERD/Reflux, Hypertension Additional Past Medical History / Comment(s): occ. pain with swallowing at times, hiatal hernia, dry skin, hx kidney stones History of Any Multi-Drug Resistant Organisms: MRSA Year Discovered:: 08/02/23 MDRO Source:: Right Foot Past Surgical History: Orthopedic Surgery Additional Past Surgical History / Comment(s): cystoscopy/stent in urethra, olga carpal tunnel, trigger finger left thumb, rt thumb surgery, shoulder surgery Past Anesthesia/Blood Transfusion Reactions: No Reported Reaction Additional Past Anesthesia/Blood Transfusion Reaction / Comm: dizziness Past Psychological History: No Psychological Hx Reported Smoking Status: Former smoker Past Alcohol Use History: None Reported Past Drug Use History: None Reported - Past Family History Mother Family Medical History: Hyperlipidemia Father Family Medical History: Diabetes Mellitus Medications and Allergies Home Medications Medication Instructions Recorded Confirmed Type Empagliflozin [Jardiance] 25 mg PO DAILY 09/01/23 09/01/23 History Lisinopril-Hctz 20-12.5 mg 1 tab PO DAILY 09/01/23 09/01/23 History [Zestoretic 20-12.5] Omeprazole [PriLOSEC] 20 mg PO BID 09/01/23 09/01/23 History Cholestyramine (with Sugar) 4 gm PO BID #20 packet 09/04/23 Rx [Questran] Ertapenem [INVanz] 1 gm IVPB DAILY@1700 14 Days each 09/04/23 09/01/23 Rx Vancomycin 2,000 mg IVPB Q12H 14 Days each 09/04/23 09/01/23 Rx Allergies Allergy/AdvReac Type Severity Reaction Status Date / Time metformin AdvReac Nausea & Verified 09/01/23 08:00 Vomiting & Diarrhea Jqoojwo-IVX-SnS Reductase AdvReac liver Verified 09/01/23 08:00 Inhibitor problems [Sekjzua-Yri-Cgy Reductase Inhibitor] Physical Exam Vitals: Vital Signs Temp Pulse Resp BP Pulse Ox 09/01/23 06:00 88 18 107/74 98 09/01/23 03:00 90 16 125/79 99 08/31/23 21:32 98.1 F 97 18 125/77 99 Intake and Output 08/31/23 09/01/23 09/01/23 22:59 06:59 14:59 Other: Weight 86.183 kg GENERAL DESCRIPTION: Middle-aged male lying in bed, no distress. No tachypnea or accessory muscle of respiration use. HEENT: Shows Pallor , no scleral icterus. Oral mucous membrane is dry. No ph aryngeal erythema or thrush NECK: Trachea central, no thyromegaly. LUNGS: Unlabored breathing. Clear to auscultation anteriorly. No wheeze or crackle. HEART: S1, S2, regular rate and rhythm. No loud murmur ABDOMEN: Soft, no tenderness , guarding or rigidity, no organomegaly EXTREMITIES: Right foot overall swelling redness has improved did have wound on the dorsum as well as plantar aspect with no significant slough tissue minimal drainage on the dressing SKIN: No rash, no masses palpable. NEUROLOGICAL: The patient is awake, alert, oriented x3, mood and affect normal. Results CBC & Chem 7: 09/04/23 04:26 09/04/23 04:26 Labs: Abnormal Lab Results - Last 24 Hours (Table) 08/31/23 08/31/23 09/01/23 Range/Units 22:18 22:18 07:49 WBC 12.6 H (3.8-10.6) k/uL Hgb 11.6 L (13.0-17.5) gm/dL Hct 37.6 L (39.0-53.0) % MCHC 30.9 L (31.0-37.0) g/dL Neutrophils # 9.2 H (1.3-7.7) k/uL Sodium 136 L (137-145) mmol/L Glucose 286 H (74-99) mg/dL POC Glucose (mg/dL) 168 H (70-110) mg/dL Alkaline Phosphatase 133 H (38-126) U/L Assessment and Plan (1) Diabetic foot ulcer Status: Acute Code(s): E11.621 - TYPE 2 DIABETES MELLITUS WITH FOOT ULCER; L97.509 - NON-PRESSURE CHRONIC ULCER OTH PRT UNSP FOOT W UNSP SEVERITY SNOMED Code(s): 619065106 (2) Diabetic ulcer of right foot Status: Acute Code(s): E11.621 - TYPE 2 DIABETES MELLITUS WITH FOOT ULCER; L97.519 - NON-PRS CHRONIC ULCER OTH PRT RIGHT FOOT W UNSP SEVERITY SNOMED Code(s): 074874339 (3) Osteomyelitis Status: Acute Code(s): M86.9 - OSTEOMYELITIS, UNSPECIFIED SNOMED Code(s): 22153964 Plan: 1patient with multiple comorbidities and recently treated for a left diabetic foot abscess requiring extensive debridement drainage of the abscess patient did have MRSA bacteremia on his last hospital visit local culture positive for MRSA as well as drug-resistant Enterobacter and the patient has been receiving outpatient IV Invanz and vancomycin no send to the hospital per advice of the home care nurse concerning for worsening infection patient did not have any fever on presentation to the hospital I did not notice any worsening redness overall left lower extremity swelling redness has improved and wound has decreased in size currently without any worsening infection 2-we will continue patient on vancomycin pharmacy to dose discontinue Zosyn decrease risk of nephrotoxicity and add Invanz with the patient was seen in the outpatient setting 3-await further evaluation from vascular surgery and continue local wound care per burn We will follow on clinical condition and cultures to further adjust medication if needed Thank you for this consultation we will follow the patient along with you Dictation was produced using [employer] dictation software. please excuse any grammatical, word or spelling errors. Time with Patient: Greater than 30
[2023-09-02] MEDS: ONDANSETRON 4 MG/2 ML VIAL IVP PRN (04:14)
[2023-09-02 06:19] LABS: Glucose,Whole Blood 252 mg/dL (70-110)
[2023-09-02 07:46] LABS: Basophils # (A) 0.1 k/uL (0-0.2); Basophils % (A) 1 %; Eosinophils # (A) 0.4 k/uL (0-0.7); Eosinophils % (A) 5 %; HCT 37.9 % (39.0-53.0); HGB 11.9 gm/dL (13.0-17.5); Lymphocytes # (A) 1.9 k/uL (1.0-4.8); Lymphocytes % (A) 24 %; MCH 27.5 pg (25.0-35.0); MCHC 31.3 g/dL (31.0-37.0); MCV 87.9 fL (80.0-100.0); Mean Platelet Volume 7.1; Monocytes # (A) 0.4 k/uL (0-1.0); Monocytes % (A) 5 %; Neutrophils % (A) 64 %; Platelet Count 378 k/uL (150-450); RBC 4.32 m/uL (4.30-5.90); RDW 14.3 % (11.5-15.5); WBC 7.8 k/uL (3.8-10.6)
[2023-09-02 08:03] LABS: ALT 11 U/L (4-49); AST 15 U/L (17-59); African American GFR (CKD) >90 (>60 ml/min/1.73 sqM); Albumin 3.1 g/dL (3.5-5.0); Alkaline Phosphatase 109 U/L (38-126); Anion Gap 4 mmol/L; Blood Urea Nitrogen 11 mg/dL (9-20); Calcium 8.7 mg/dL (8.4-10.2); Carbon Dioxide 25 mmol/L (22-30); Chloride 107 mmol/L (98-107); Glucose 238 mg/dL (74-99); Magnesium 1.9 mg/dL (1.6-2.3); Non-African American GFR(CKD) >90 (>60 ml/min/1.73 sqM); Potassium 4.1 mmol/L (3.5-5.1); Sodium 136 mmol/L (137-145); Total Bilirubin 0.2 mg/dL (0.2-1.3); Total Protein 6.2 g/dL (6.3-8.2)
--- NOTE | 2023-09-02 10:11 | P.PN ---
Subjective Progress Note Date: 09/02/23 Principal diagnosis: Right foot wound Patient is seen and examined today as a follow-up. States he is still getting sharp jolting pain down his leg and foot. States he had been on gabapentin in the past not sure why he was taken off of that. However he does state that he did not like the way it made him feel. Does not sound like he has had consistent medical care due to insurance and financial issues. He has been afebrile. WBC 7.8, blood sugars have been elevated in the 200s. Venous duplex was negative for DVT and right lower extremity. Bilateral ABIs with good wav eform, right CHARLY 1.74, left 1.55. Objective - Vital Signs Vital signs: Vital Signs Temp 98.0 F 09/02/23 07:53 Pulse 93 09/02/23 07:53 Resp 17 09/02/23 07:53 BP 118/76 09/02/23 07:53 Pulse Ox 97 09/02/23 07:53 FiO2 Intake & Output 09/01/23 09/02/23 09/02/23 18:59 06:59 18:59 Intake Total 118 Balance 118 Weight 86.183 kg Intake: Oral 118 Other: Voiding Method Toilet # Voids 1 - Exam General appearance: The patient is alert, oriented, appears in no acute distress. HET: Head is normocephalic and atraumatic. Pupils are equal and reactive. Neck: Supple. Heart: Regular. Lungs: Equal expansion, normal respiratory effort. Abdomen: Soft,nondistended. Extremities: Bilateral lower extremity swelling with venous stasis dermatitis. Palpable PT and DP pulses. Dressing with Alvin wrap on right lower extremity. Neurological: No focal deficits. Strength and sensation are grossly intact. - Labs CBC & Chem 7: 09/02/23 07:41 09/02/23 07:41 Labs: Abnormal Lab Results - Last 24 Hours (Table) 09/01/23 09/01/23 09/01/23 Range/Units 11:54 11:54 12:26 RBC 4.24 L (4.30-5.90) m/uL Hgb 11.9 L (13.0-17.5) gm/dL Hct 37.4 L (39.0-53.0) % ESR 45 H (0-20) mm/Hr Sodium (137-145) mmol/L Chloride 108 H (98-107) mmol/L Carbon Dioxide 21 L (22-30) mmol/L Glucose 163 H (74-99) mg/dL POC Glucose (mg/dL) 158 H (70-110) mg/dL AST (17-59) U/L C-Reactive Protein 5.9 H (<1.0) mg/dL Total Protein (6.3-8.2) g/dL Albumin 3.3 L (3.5-5.0) g/dL 09/01/23 09/01/23 09/02/23 Range/Units 16:56 20:39 06:05 RBC (4.30-5.90) m/uL Hgb (13.0-17.5) gm/dL Hct (39.0-53.0) % ESR (0-20) mm/Hr Sodium (137-145) mmol/L Chloride (98-107) mmol/L Carbon Dioxide (22-30) mmol/L Glucose (74-99) mg/dL POC Glucose (mg/dL) 181 H 221 H 252 H (70-110) mg/dL AST (17-59) U/L C-Reactive Protein (<1.0) mg/dL Total Protein (6.3-8.2) g/dL Albumin (3.5-5.0) g/dL 09/02/23 09/02/23 Range/Units 07:41 07:41 RBC (4.30-5.90) m/uL Hgb 11.9 L (13.0-17.5) gm/dL Hct 37.9 L (39.0-53.0) % ESR (0-20) mm/Hr Sodium 136 L (137-145) mmol/L Chloride (98-107) mmol/L Carbon Dioxide (22-30) mmol/L Glucose 238 H (74-99) mg/dL POC Glucose (mg/dL) (70-110) mg/dL AST 15 L (17-59) U/L C-Reactive Protein (<1.0) mg/dL Total Protein 6.2 L (6.3-8.2) g/dL Albumin 3.1 L (3.5-5.0) g/dL Microbiology - Last 24 Hours (Table) 09/01/23 17:00 Gram Stain - Preliminary Foot - Right Assessment and Plan Assessment: 1. Diabetic wound to right foot with previous surgical debridement 07/28/2023 2. Previous history of right first and second toe amputation 3. Diabetes mellitus 4. Recent diagnosis osteomyelitis on IV antibiotics 5. Venous stasis with venous dermatitis Plan: 1. Consult to [facility] wound clinic for recommendations of local wound care and outpatient follow-up 2. Continue with recommendations from infectious disease 3. Agree with obtaining stool for C. difficile 4. No plans for surgical intervention 5. Local wound care per recommendations from wound clinic 6. Rest of medical management per primary medical team 7. Consult to case management/social work for patient concerns with finances and insurance Thank you for this consultation, patient is cleared from vascular surgery for discharge. The impression and plan of care has been dictated as directed. I performed a history and examination of this patient, discussed the same with the dictator. I agree with the dictator's note ,documented as a scribe. Any additional findings or plans will be noted.
--- NOTE | 2023-09-02 10:46 | P.CONS ---
History of Present Illness - Reason for Consult Consult date: 09/02/23 wound care - History of Present Illness This is a 57-year-old male with a history of diabetes mellitus and chronic wounds to the right foot with history of first and second toe amputation. Patient has previously been seen in the wound care center his last recent provider with Dr. Kimble. Patient does not want to continue with Dr. Kimble. He was evaluated by vascular surgery in the hospital. In the wound care center was asked for recommendations. Patient has 2 ulcerations 1 to the dorsal foot measuring approximately 1.3 x 1.5 x 1 cm with slough and nonviable tissue present no tunneling or undermining noted. Periwound shows excoriation. Patient also has a ulceration to the plantar forefoot measuring approximately 2.5 x 1.4 x 1.2 cm with no tunneling or undermining. Granulation seen within the wound bed with slough and nonviable tissue present. Patient does have significant amount of discomfort to the plantar ulceration. Patient also states that he has been following with home care who has been treating the wounds with absorptive silver rope. Patient is struggling with diabetic medications and his insurance. Patient has had hyperbaric therapy in the past with positive results. At this time patient has osteomyelitis currently on IV antibiotics following with infectious disease. His last surgical debridement was 07/28/2023 of the right plantar callus callus and dorsal foot at that time it was to the bone. Review Of Systems: Constitutional: No fever, no chills, no night sweats. No weight change. No weakness, fatigue or lethargy. No daytime sleepiness. Integumentary:reports wounds, no lesions. No rash or pruritus. No unusual bruising. No change in hair or nails. Physical exam: General Appearance: Alert, cooperative, no distress, appears stated age. Skin: See HPI all other Skin color, texture, tugor normal, no rashes or lesions. Neurologic: Alert oriented x3 Assessment: 1. Nonhealing ulceration with bone necrosis of the right plantar foot 2. Nonpressure ulceration with bone necrosis of the right dorsal foot. 3. Osteomyelitis 4. Diabetic foot ulcer Plan: 1. Apply Santyl to the site. Patient would benefit from advanced wound care and wound care setting. Would be happy to see him upon discharge. Spoke with the patient about possible hyperbaric oxygen therapy treatment in outpatient setting patient is agreeable. We will continue to follow along with the patient and vascular surgery's recommendations. Thank you for the consultation any questions please contact the wound care center DNP note has been reviewed and discussed with Dr. Ariza and the impression and plan of care has been directed as dictated. Past Medical History Past Medical History: Diabetes Mellitus, GERD/Reflux, Hypertension Additional Past Medical History / Comment(s): occ. pain with swallowing at times, hiatal hernia, dry skin, hx kidney stones History of Any Multi-Drug Resistant Organisms: MRSA Year Discovered:: 08/02/23 MDRO Source:: Right Foot Past Surgical History: Orthopedic Surgery Additional Past Surgical History / Comment(s): cystoscopy/stent in urethra, olga carpal tunnel, trigger finger left thumb, rt thumb surgery, shoulder surgery Past Anesthesia/Blood Transfusion Reactions: No Reported Reaction Additional Past Anesthesia/Blood Transfusion Reaction / Comm: dizziness Past Psychological History: No Psychological Hx Reported Smoking Status: Former smoker Past Alcohol Use History: None Reported Past Drug Use History: None Reported - Past Family History Mother Family Medical History: Hyperlipidemia Father Family Medical History: Diabetes Mellitus Medications and Allergies Home Medications Medication Instructions Recorded Confirmed Type Ertapenem [INVanz] 1 gm IVPB DAILY@1700 35 Days each 08/04/23 09/01/23 Rx Vancomycin 2,000 mg IVPB Q12H 35 Days each 08/04/23 09/01/23 Rx Empagliflozin [Jardiance] 25 mg PO DAILY 09/01/23 09/01/23 History Lisinopril-Hctz 20-12.5 mg 1 tab PO DAILY 09/01/23 09/01/23 History [Zestoretic 20-12.5] Omeprazole [PriLOSEC] 20 mg PO BID 09/01/23 09/01/23 History Allergies Allergy/AdvReac Type Severity Reaction Status Date / Time metformin AdvReac Nausea & Verified 09/01/23 08:00 Vomiting & Diarrhea Srfyhdk-HEW-LcU Reductase AdvReac liver Verified 09/01/23 08:00 Inhibitor problems [Lpoxatu-Hcq-Mzs Reductase Inhibitor] Physical Exam Vitals: Vital Signs Temp Pulse Resp BP Pulse Ox 09/02/23 07:53 98.0 F 93 17 118/76 97 09/02/23 01:08 97.5 F L 78 15 131/85 100 09/01/23 20:00 98.5 F 81 20 124/69 100 09/01/23 14:00 97.4 F L 78 18 98 Intake and Output 09/01/23 09/02/23 09/02/23 22:59 06:59 14:59 Intake Total 118 Balance 118 Intake: Oral 118 Other: Voiding Method Toilet # Voids 1 Weight 86.183 kg Results CBC & Chem 7: 09/02/23 07:41 09/02/23 07:41 Labs: Abnormal Lab Results - Last 24 Hours (Table) 09/01/23 09/01/23 09/01/23 Range/Units 11:54 11:54 12:26 RBC 4.24 L (4.30-5.90) m/uL Hgb 11.9 L (13.0-17.5) gm/dL Hct 37.4 L (39.0-53.0) % ESR 45 H (0-20) mm/Hr Sodium (137-145) mmol/L Chloride 108 H (98-107) mmol/L Carbon Dioxide 21 L (22-30) mmol/L Glucose 163 H (74-99) mg/dL POC Glucose (mg/dL) 158 H (70-110) mg/dL AST (17-59) U/L C-Reactive Protein 5.9 H (<1.0) mg/dL Total Protein (6.3-8.2) g/dL Albumin 3.3 L (3.5-5.0) g/dL 09/01/23 09/01/23 09/02/23 Range/Units 16:56 20:39 06:05 RBC (4.30-5.90) m/uL Hgb (13.0-17.5) gm/dL Hct (39.0-53.0) % ESR (0-20) mm/Hr Sodium (137-145) mmol/L Chloride (98-107) mmol/L Carbon Dioxide (22-30) mmol/L Glucose (74-99) mg/dL POC Glucose (mg/dL) 181 H 221 H 252 H (70-110) mg/dL AST (17-59) U/L C-Reactive Protein (<1.0) mg/dL Total Protein (6.3-8.2) g/dL Albumin (3.5-5.0) g/dL 09/02/23 09/02/23 Range/Units 07:41 07:41 RBC (4.30-5.90) m/uL Hgb 11.9 L (13.0-17.5) gm/dL Hct 37.9 L (39.0-53.0) % ESR (0-20) mm/Hr Sodium 136 L (137-145) mmol/L Chloride (98-107) mmol/L Carbon Dioxide (22-30) mmol/L Glucose 238 H (74-99) mg/dL POC Glucose (mg/dL) (70-110) mg/dL AST 15 L (17-59) U/L C-Reactive Protein (<1.0) mg/dL Total Protein 6.2 L (6.3-8.2) g/dL Albumin 3.1 L (3.5-5.0) g/dL Microbiology - Last 24 Hours (Table) 09/01/23 17:00 Gram Stain - Preliminary Foot - Right Assessment and Plan (1) Non-pressure chronic ulcer of other part of right foot with necrosis of bone Current Visit: Yes Status: Acute Code(s): L97.514 - NON-PRS CHRONIC ULCER OTH PRT RIGHT FOOT W NECROSIS OF BONE SNOMED Code(s): 77259681433677535 (2) Diabetic ulcer of right foot Current Visit: Yes Status: Acute Code(s): E11.621 - TYPE 2 DIABETES MELLITUS WITH FOOT ULCER; L97.519 - NON-PRS CHRONIC ULCER OTH PRT RIGHT FOOT W UNSP SEVER ITY SNOMED Code(s): 970276634 (3) Osteomyelitis Current Visit: Yes Status: Acute Code(s): M86.9 - OSTEOMYELITIS, UNSPECIFIED SNOMED Code(s): 05448020
[2023-09-02 11:47] LABS: Glucose,Whole Blood 208 mg/dL (70-110)
--- NOTE | 2023-09-02 12:19 | P.PN ---
Subjective Progress Note Date: 09/02/23 Hospital course Patient is a very pleasant 57-year-old male with a past medical history of hypertension, type II fvs-uoyibjd-gaqhuqlml diabetes mellitus, GERD, diastolic heart failure, moderate to severe pulmonary hypertension, osteomyelitis status post amputation of first and second toes and partial amputation of third toe. Patient recently hospitalized from 07/26/2023 through 08/04/2023 secondary to osteomyelitis and sepsis due to infected diabetic foot ulcer with MRSA bacte remia. During this hospitalization patient underwent I&D of infected foot ulcer on 07/28/2023 and was discharged home on IV antibiotics with Invanz and vancomycin. However, patient reported that he began noticing increased swelling, warmth, and redness over right foot with pain now extending up into his groin and his wound care nurse was concerned that his infection is worsening and sent him to the hospital for evaluation. Upon arrival to our facility, patient underwent evaluation in the emergency department. Vital signs upon arrival show blood pressure 125/77, heart rate 97, respiratory rate 18, temp 98.1 F, and SpO2 of 99% on room air. Labs were completed and reviewed. CBC showing leukocytosis with WBC count of 12.6 and stable normocytic anemia with hemoglobin of 11.6. BMP showing hyperglycemia with glucose of 286 otherwise normal findings. Lactic acid was 1.3. Liver profile showing elevated alkaline phosphatase of 133 otherwise normal findings. X-ray right foot was completed showing inflammatory soft tissue edema/swelling of the amputation bed and diffusely of the right foot with a 2.5 cm subcutaneous ulceration and dorsum of midfoot and concerns of subtle nondisplaced transverse fractures of the proximal third and fourth metatarsals. Patient was admitted under our services for worsening infection of right foot diabetic ulcer. Consults placed to vascular surgery and infectious disease. Subjective Patient seen this morning. Patient states that he was on the same antibiotic that he was getting at home. He states that the antibiotics were not helping. Patient states that he still has pain in his right foot. Physical exam General examination - Alert and Oriented 3 in NAD Heart - + S1S2 no murmurs Lungs - Clear to auscultation Abdomen soft NT ND +ve BS Extremities - right foot plantar ulcer that is about 1 x 1 cm between the second and third digit and also dorsal ulcer about 1.1 cm with some purulent drainage. Partial amputation of the right foot [employer]ODUCT [employer] - Moving all 4 extremities spontaneously Psych - Calm and cooperative Assessment and plan Right foot osteomyelitis secondary to diabetes mellitus Patient is afebrile and WBC within normal limits at 7.8 Patient's wound cultures growing rare gram-positive cocci and gram-negative bacilli Right venous Doppler negative for DVT Arterial Doppler findings consistent with vessel hardening Appreciate wound care recommendations Awaiting for further recommendations from vascular surgery Infectious disease on board Continue with vancomycin. Need to monitor creatinine for renal toxicity. Creatinine this morning is 0.6. Will continue with vancomycin and 1.750 mg every 12 hours. Check Vanco trough and adjust dosing for levels between 15 and 20. Will also continue with IV Invanz due to history of ESBL IV morphine 4 mg every 4 hours as needed for pain Diabetes mellitus Blood glucose between 158 and 252 Hemoglobin A1c is 9.9 Patient will need better control of his diabetes in the outpatient setting Will continue current insulin regimen Hypertension Hyperlipidemia Chronic diastolic heart failure Moderate to severe pulm hypertension continue with his lisinopril and hydrochlorothiazide DVT prophylaxis: Subcu heparin Anticipated discharge: Awaiting for vascular surgery recommendations. Awaiting for wound cultures to finalize Anticipated place of discharge: Home Objective - Vital Signs Vital signs: Vital Signs Temp 98.0 F 09/02/23 07:53 Pulse 93 09/02/23 07:53 Resp 17 09/02/23 07:53 BP 118/76 09/02/23 07:53 Pulse Ox 97 09/02/23 07:53 FiO2 Intake & Output 09/01/23 09/02/23 09/02/23 18:59 06:59 18:59 Intake Total 118 Balance 118 Weight 86.183 kg Intake: Oral 118 Other: Voiding Method Toilet # Voids 1 - Labs CBC & Chem 7: 09/02/23 07:41 09/02/23 07:41 Labs: Abnormal Lab Results - Last 24 Hours (Table) 09/01/23 09/01/23 09/01/23 Range/Units 11:54 11:54 12:26 RBC 4.24 L (4.30-5.90) m/uL Hgb 11.9 L (13.0-17.5) gm/dL Hct 37.4 L (39.0-53.0) % ESR 45 H (0-20) mm/Hr Sodium (137-145) mmol/L Chloride 108 H (98-107) mmol/L Carbon Dioxide 21 L (22-30) mmol/L Glucose 163 H (74-99) mg/dL POC Glucose (mg/dL) 158 H (70-110) mg/dL Hemoglobin A1c (<=6.0) % AST (17-59) U/L C-Reactive Protein 5.9 H (<1.0) mg/dL Total Protein (6.3-8.2) g/dL Albumin 3.3 L (3.5-5.0) g/dL 09/01/23 09/01/23 09/02/23 Range/Units 16:56 20:39 06:05 RBC (4.30-5.90) m/uL Hgb (13.0-17.5) gm/dL Hct (39.0-53.0) % ESR (0-20) mm/Hr Sodium (137-145) mmol/L Chloride (98-107) mmol/L Carbon Dioxide (22-30) mmol/L Glucose (74-99) mg/dL POC Glucose (mg/dL) 181 H 221 H 252 H (70-110) mg/dL Hemoglobin A1c (<=6.0) % AST (17-59) U/L C-Reactive Protein (<1.0) mg/dL Total Protein (6.3-8.2) g/dL Albumin (3.5-5.0) g/dL 09/02/23 09/02/23 09/02/23 Range/Units 07:41 07:41 07:41 RBC (4.30-5.90) m/uL Hgb 11.9 L (13.0-17.5) gm/dL Hct 37.9 L (39.0-53.0) % ESR (0-20) mm/Hr Sodium 136 L (137-145) mmol/L Chloride (98-107) mmol/L Carbon Dioxide (22-30) mmol/L Glucose 238 H (74-99) mg/dL POC Glucose (mg/dL) (70-110) mg/dL Hemoglobin A1c 9.9 H (<=6.0) % AST 15 L (17-59) U/L C-Reactive Protein (<1.0) mg/dL Total Protein 6.2 L (6.3-8.2) g/dL Albumin 3.1 L (3.5-5.0) g/dL 09/02/23 Range/Units 11:45 RBC (4.30-5.90) m/uL Hgb (13.0-17.5) gm/dL Hct (39.0-53.0) % ESR (0-20) mm/Hr Sodium (137-145) mmol/L Chloride (98-107) mmol/L Carbon Dioxide (22-30) mmol/L Glucose (74-99) mg/dL POC Glucose (mg/dL) 208 H (70-110) mg/dL Hemoglobin A1c (<=6.0) % AST (17-59) U/L C-Reactive Protein (<1.0) mg/dL Total Protein (6.3-8.2) g/dL Albumin (3.5-5.0) g/dL Microbiology - Last 24 Hours (Table) 09/01/23 17:00 Gram Stain - Preliminary Foot - Right
[2023-09-02] MEDS: COLLAGENASE 250 UNIT/GM OINTMENT 30 GM TUBE TOPICAL SCH (12:28)
[2023-09-02 16:51] LABS: Glucose,Whole Blood 128 mg/dL (70-110)
--- NOTE | 2023-09-02 17:18 | P.PN ---
Subjective Progress Note Date: 09/02/23 Principal diagnosis: Reason for follow-up is right diabetic foot infection osteomyelitis Patient is a 57-year-old male with a past medical history significant for diabetes mellitus reflux hypertension patient did have a history of diabetic foot infection with recent admission to the hospital with right diabetic foot infection with an abscess in this patient who status post extensive debridement of the wound down to the wound by vascular surgery on 07/28/2023 cultures were positive for MRSA and Enterobacter treated with the vancomycin and Invanz started back to the hospital by the home care nurse concerning for worsening cellulitis. On today's evaluation that is 09/02/2023, Patient is afebrile this morning and denies any chills, patient mention breathing comfortably and is currently on room air, patient denies any chest pain occasional cough patient denies any abdominal pain no diarrhea no nausea no vomiting denies any worsening pain to the left foot. Patient white count 7.8, creatinine 0.67 Objective - Vital Signs Vital signs: Vital Signs Temp 98.0 F 09/02/23 07:53 Pulse 93 09/02/23 07:53 Resp 17 09/02/23 07:53 BP 118/76 09/02/23 07:53 Pulse Ox 97 09/02/23 07:53 FiO2 Intake & Output 09/01/23 09/02/23 09/02/23 18:59 06:59 18:59 Intake Total 118 Balance 118 Weight 86.183 kg Intake: Oral 118 Other: Voiding Method Toilet # Voids 1 - Exam GENERAL DESCRIPTION: Middle-age male lying in bed in no distress RESPIRATORY SYSTEM: Unlabored breathing , decreased breath sounds at bases HEART: S1 S2 regular rate and rhythm , ABDOMEN: Soft , no tenderness EXTREMITIES: Right foot is currently dressed no drainage on the dressing - Labs CBC & Chem 7: 09/02/23 07:41 09/02/23 07:41 Labs: Abnormal Lab Results - Last 24 Hours (Table) 09/01/23 09/01/23 09/01/23 Range/Units 11:54 16:56 20:39 Hgb (13.0-17.5) gm/dL Hct (39.0-53.0) % ESR 45 H (0-20) mm/Hr Sodium (137-145) mmol/L Glucose (74-99) mg/dL POC Glucose (mg/dL) 181 H 221 H (70-110) mg/dL Hemoglobin A1c (<=6.0) % AST (17-59) U/L Total Protein (6.3-8.2) g/dL Albumin (3.5-5.0) g/dL 09/02/23 09/02/23 09/02/23 Range/Units 06:05 07:41 07:41 Hgb 11.9 L (13.0-17.5) gm/dL Hct 37.9 L (39.0-53.0) % ESR (0-20) mm/Hr Sodium (137-145) mmol/L Glucose (74-99) mg/dL POC Glucose (mg/dL) 252 H (70-110) mg/dL Hemoglobin A1c 9.9 H (<=6.0) % AST (17-59) U/L Total Protein (6.3-8.2) g/dL Albumin (3.5-5.0) g/dL 09/02/23 09/02/23 Range/Units 07:41 11:45 Hgb (13.0-17.5) gm/dL Hct (39.0-53.0) % ESR (0-20) mm/Hr Sodium 136 L (137-145) mmol/L Glucose 238 H (74-99) mg/dL POC Glucose (mg/dL) 208 H (70-110) mg/dL Hemoglobin A1c (<=6.0) % AST 15 L (17-59) U/L Total Protein 6.2 L (6.3-8.2) g/dL Albumin 3.1 L (3.5-5.0) g/dL Microbiology - Last 24 Hours (Table) 09/01/23 17:00 Gram Stain - Preliminary Foot - Right Assessment and Plan (1) Diabetic foot infection Current Visit: Yes Status: Acute Code(s): E11.628 - TYPE 2 DIABETES MELLITUS WITH OTHER SKIN COMPLICATIONS; L08.9 - LOCAL INFECTION OF THE SKIN AND SUBCUTANEOUS TISSUE, UNSP SNOMED Code(s): 323970407 (2) Diabetic ulcer of right foot Current Visit: Yes Status: Acute Code(s): E11.621 - TYPE 2 DIABETES MELLITUS WITH FOOT ULCER; L97.519 - NON-PRS CHRONIC ULCER OTH PRT RIGHT FOOT W UNSP SEVERITY SNOMED Code(s): 231218727 (3) Osteomyelitis of toe of right foot Current Visit: Yes Status: Acute Code(s): M86.9 - OSTEOMYELITIS, UNSPECIFIED SNOMED Code(s): 693923001 Plan: 1patient with multiple comorbidities and recently treated for a right diabetic foot abscess requiring extensive debridement drainage of the abscess patient did have MRSA bacteremia on his last hospital visit local culture positive for MRSA as well as drug-resistant Enterobacter and the patient has been receiving outpatient IV Invanz and vancomycin no send to the hospital per advice of the home care nurse concerning for worsening infection patient did not have any fever on presentation to the hospital I did not notice any worsening redness overall left lower extremity swelling redness has improved and wound has decreased in size currently without any worsening infection 2-patient has been eval by vascular surgery recommending no surgical intervention culture obtained yesterday results will be followed continue with vancomycin and Invanz at this point Dictation was produced using [employer] dictation software. please excuse any grammatical, word or spelling errors.
[2023-09-02 20:16] LABS: Glucose,Whole Blood 155 mg/dL (70-110)
[2023-09-03 07:17] LABS: Glucose,Whole Blood 175 mg/dL (70-110)
[2023-09-03 08:39] LABS: African American GFR (CKD) >90 (>60 ml/min/1.73 sqM); Non-African American GFR(CKD) >90 (>60 ml/min/1.73 sqM)
[2023-09-03] MEDS: VANCOMYCIN TROUGH DUE 1 EACH MISC MISCELLANE ONE (10:57)
--- NOTE | 2023-09-03 12:10 | P.PN ---
Subjective Progress Note Date: 09/03/23 Hospital course Patient is a very pleasant 57-year-old male with a past medical history of hypertension, type II tzh-esmtlog-cosrouotg diabetes mellitus, GERD, diastolic heart failure, moderate to severe pulmonary hypertension, osteomyelitis status post amputation of first and second toes and partial amputation of third toe. Patient recently hospitalized from 07/26/2023 through 08/04/2023 secondary to osteomyelitis and sepsis due to infected diabetic foot ulcer with MRSA bacte remia. During this hospitalization patient underwent I&D of infected foot ulcer on 07/28/2023 and was discharged home on IV antibiotics with Invanz and vancomycin. However, patient reported that he began noticing increased swelling, warmth, and redness over right foot with pain now extending up into his groin and his wound care nurse was concerned that his infection is worsening and sent him to the hospital for evaluation. Upon arrival to our facility, patient underwent evaluation in the emergency department. Vital signs upon arrival show blood pressure 125/77, heart rate 97, respiratory rate 18, temp 98.1 F, and SpO2 of 99% on room air. Labs were completed and reviewed. CBC showing leukocytosis with WBC count of 12.6 and stable normocytic anemia with hemoglobin of 11.6. BMP showing hyperglycemia with glucose of 286 otherwise normal findings. Lactic acid was 1.3. Liver profile showing elevated alkaline phosphatase of 133 otherwise normal findings. X-ray right foot was completed showing inflammatory soft tissue edema/swelling of the amputation bed and diffusely of the right foot with a 2.5 cm subcutaneous ulceration and dorsum of midfoot and concerns of subtle nondisplaced transverse fractures of the proximal third and fourth metatarsals. Patient was admitted under our services for worsening infection of right foot diabetic ulcer. Consults placed to vascular surgery and infectious disease. Patient was seen by vascular surgery. Patient arterial Dopplers that are consistent with vessel hardening. Patient also had lower extremity Dopplers were negative for DVT. Per vascular surgery no surgical intervention needed. Patient was seen by wound care as well who re commended to have the patient follow-up with them in the wound care clinic outpatient. Subjective Patient states that the Melvin causes stomach to get upset. I spoke with the nurse who said that patient is only requesting IV morphine and Dilaudid Physical exam General examination - Alert and Oriented 3 in NAD Heart - + S1S2 no murmurs Lungs - Clear to auscultation Abdomen soft NT ND +ve BS Extremities - right foot plantar ulcer that is about 1 x 1 cm between the second and third digit and also dorsal ulcer about 1.1 cm with some purulent drainage. Partial amputation of the right foot NEWSPAPER OR PERIODICAL EDITOR - Moving all 4 extremities spontaneously Psych - Calm and cooperative Assessment and plan Right foot osteomyelitis secondary to diabetes mellitus Patient is afebrile and WBC within normal limits at 7.8 Per vascular surgery no surgical intervention Wound care recommending outpatient follow-up Infectious disease on board Continue with vancomycin. Need to monitor creatinine for renal toxicity. Creatinine this morning is 0.78. Will continue with vancomycin and 1.750 mg every 12 hours. Vanco trough this morning is 20.2 which is acceptable Will also continue with IV Invanz due to history of ESBL IV morphine 4 mg every 4 hours as needed for pain Diabetes mellitus Blood glucose levels acceptable Hemoglobin A1c is 9.9 Patient will need better control of his diabetes in the outpatient setting Will continue current insulin regimen Hypertension Hyperlipidemia Chronic diastolic heart failure Moderate to severe pulm hypertension continue with his lisinopril and hyd rochlorothiazide DVT prophylaxis: Subcu heparin Anticipated discharge: Awaiting for infectious disease to give final antibiotic recommendations Anticipated place of discharge: Home Objective - Vital Signs Vital signs: Vital Signs Temp 98.4 F 09/03/23 07:57 Pulse 87 09/03/23 07:57 Resp 16 09/03/23 07:57 BP 112/76 09/03/23 07:57 Pulse Ox 96 09/03/23 07:57 FiO2 Intake & Output 09/02/23 09/03/23 09/03/23 18:59 06:59 18:59 Intake Total 1390 590 Balance 1390 590 Intake: Intake, IV Titration 550 Amount Ertapenem 1 gm In Sodium 50 Chloride 0.9% 50 ml @ 100 mls/hr IVPB DAILY FRANCY Rx #:[id number] Vancomycin 1,750 mg In 500 Sodium Chloride 0.9% 500 ml 500 ml @ 167 mls/hr IVPB Q12HR FRANCY Rx#: [id number] Oral 840 590 Other: Voiding Method Toilet Toilet # Voids 3 2 # Bowel Movements 0 - Labs CBC & Chem 7: 09/02/23 07:41 09/03/23 07:39 Labs: Abnormal Lab Results - Last 24 Hours (Table) 09/02/23 09/02/23 09/03/23 Range/Units 16:49 20:15 07:14 POC Glucose (mg/dL) 128 H 155 H 175 H (70-110) mg/dL Microbiology - Last 24 Hours (Table) 09/01/23 22:33 Blood Culture - Preliminary Blood 09/01/23 17:00 Gram Stain - Preliminary Foot - Right
--- NOTE | 2023-09-03 12:20 | P.PN ---
Subjective Progress Note Date: 09/03/23 Principal diagnosis: Right foot wound Seen and examined today as a follow-up. No acute changes through the night. He has been afebrile. Wound cultures currently pending. Blood culture with no growth after 24 hours. Objective - Vital Signs Vital signs: Vital Signs Temp 98.3 F 09/03/23 02:00 Pulse 85 09/03/23 02:00 Resp 16 09/03/23 02:00 BP 100/67 09/03/23 02:00 Pulse Ox 99 09/03/23 02:00 FiO2 Intake & Output 09/02/23 09/03/23 09/03/23 18:59 06:59 18:59 Intake Total 1390 590 Balance 1390 590 Intake: Intake, IV Titration 550 Amount Ertapenem 1 gm In Sodium 50 Chloride 0.9% 50 ml @ 100 mls/hr IVPB DAILY FRANCY Rx #:[id number] Vancomycin 1,750 mg In 500 Sodium Chloride 0.9% 500 ml 500 ml @ 167 mls/hr IVPB Q12HR FRANCY Rx#: [id number] Oral 840 590 Other: Voiding Method Toilet # Voids 3 2 # Bowel Movements 0 - Exam General appearance: The patient is alert, oriented, appears in no acute distress. HET: Head is normocephalic and atraumatic. Pupils are equal and reactive. Neck: Supple. Abdomen: Soft,nondistended. Extremities: Bilateral lower extremity swelling with venous stasis dermatitis. Palpable PT and DP pulses. Dressing with Alvin wrap on right lower extremity. Neurological: No focal deficits. Strength and sensation are grossly intact. - Labs CBC & Chem 7: 09/02/23 07:41 09/03/23 07:39 Labs: Abnormal Lab Results - Last 24 Hours (Table) 09/02/23 09/02/23 09/02/23 Range/Units 07:41 07:41 11:45 Sodium 136 L (137-145) mmol/L Glucose 238 H (74-99) mg/dL POC Glucose (mg/dL) 208 H (70-110) mg/dL Hemoglobin A1c 9.9 H (<=6.0) % AST 15 L (17-59) U/L Total Protein 6.2 L (6.3-8.2) g/dL Albumin 3.1 L (3.5-5.0) g/dL 09/02/23 09/02/23 09/03/23 Range/Units 16:49 20:15 07:14 Sodium (137-145) mmol/L Glucose (74-99) mg/dL POC Glucose (mg/dL) 128 H 155 H 175 H (70-110) mg/dL Hemoglobin A1c (<=6.0) % AST (17-59) U/L Total Protein (6.3-8.2) g/dL Albumin (3.5-5.0) g/dL Microbiology - Last 24 Hours (Table) 09/01/23 22:33 Blood Culture - Preliminary Blood 09/01/23 17:00 Gram Stain - Preliminary Foot - Right Assessment and Plan Assessment: 1. Diabetic wound to right foot with previous surgical debridement 07/28/2023 2. Previous history of right first and second toe amputation 3. Diabetes mellitus 4. Recent diagnosis osteomyelitis on IV antibiotics 5. Venous stasis with venous dermatitis Plan: 1. Consult to [facility] wound clinic for recommendations of local wound care and outpatient follow-up 2. Continue with recommendations from infectious disease 3. No plans for surgical intervention 4. Continue Local wound care per recommendations from wound clinic 5. Rest of medical management per primary medical team 6. Consult to case management/social work for patient concerns with finances and insurance Thank you for this consultation, patient is cleared from vascular surgery for discharge. We will sign off at this time. The impression and plan of care has been dictated as directed. I performed a history and examination of this patient, discussed the same with the dictator. I agree with the dictator's note ,documented as a scribe. Any additional findings or plans will be noted.
[2023-09-03 12:40] LABS: Glucose,Whole Blood 191 mg/dL (70-110)
[2023-09-03 13:56] VITALS: BMI 29.7
--- NOTE | 2023-09-03 14:44 | P.PN ---
Subjective Progress Note Date: 09/03/23 Principal diagnosis: Reason for follow-up is right diabetic foot infection osteomyelitis Patient is a 57-year-old male with a past medical history significant for diabetes mellitus reflux hypertension patient did have a history of diabetic foot infection with recent admission to the hospital with right diabetic foot infection with an abscess in this patient who status post extensive debridement of the wound down to the wound by vascular surgery on 07/28/2023 cultures were positive for MRSA and Enterobacter treated with the vancomycin and Invanz started back to the hospital by the home care nurse concerning for worsening cellulitis. On today's evaluation that is 09/03/2023,the patient denies any fever or any chills, patient is breathing comfortably on room air, the patient denies chest pain shortness of breath and no significant cough, patient denies abdominal pain, no nausea vomiting has been complaining of some diarrhea multiple loose stools per patient complaint of pain to the right foot but no worsening pain. Patient did have a creatinine 0.78 Vanco trough is 20.2 Objective - Vital Signs Vital signs: Vital Signs Temp 98 F 09/03/23 12:00 Pulse 86 09/03/23 12:00 Resp 16 09/03/23 12:00 BP 127/85 09/03/23 12:00 Pulse Ox 99 09/03/23 12:00 FiO2 Intake & Output 09/02/23 09/03/23 09/03/23 18:59 06:59 18:59 Intake Total 1390 590 Balance 1390 590 Weight 86.183 kg Intake: Intake, IV Titration 550 Amount Ertapenem 1 gm In Sodium 50 Chloride 0.9% 50 ml @ 100 mls/hr IVPB DAILY FRANCY Rx #:[id number] Vancomycin 1,750 mg In 500 Sodium Chloride 0.9% 500 ml 500 ml @ 167 mls/hr IVPB Q12HR FRANCY Rx#: [id number] Oral 840 590 Other: Voiding Method Toilet Toilet # Voids 3 2 # Bowel Movements 0 - Exam GENERAL DESCRIPTION: Middle-age male lying in bed in no distress RESPIRATORY SYSTEM: Unlabored breathing , decreased breath sounds at bases HEART: S1 S2 regular rate and rhythm , ABDOMEN: Soft , no tenderness EXTREMITIES: Right foot wound on the dorsum as well as plantar aspect without any worsening or any foul-smelling drainage - Labs CBC & Chem 7: 09/02/23 07:41 06/27/24 07:39 Labs: Abnormal Lab Results - Last 24 Hours (Table) 09/02/23 09/02/23 09/03/23 Range/Units 16:49 20:15 07:14 POC Glucose (mg/dL) 128 H 155 H 175 H (70-110) mg/dL 09/03/23 Range/Units 12:22 POC Glucose (mg/dL) 191 H (70-110) mg/dL Microbiology - Last 24 Hours (Table) 09/01/23 22:33 Blood Culture - Preliminary Blood Assessment and Plan (1) Diabetic foot infection Current Visit: Yes Status: Acute Code(s): E11.628 - TYPE 2 DIABETES MELLITUS WITH OTHER SKIN COMPLICATIONS; L08.9 - LOCAL INFECTION OF THE SKIN AND SUBCUTANEOUS TISSUE, UNSP SNOMED Code(s): 914668397 (2) Diabetic ulcer of right foot Current Visit: Yes Status: Acute Code(s): E11.621 - TYPE 2 DIABETES MELLITUS WITH FOOT ULCER; L97.519 - NON-PRS CHRONIC ULCER OTH PRT RIGHT FOOT W UNSP SEVERITY SNOMED Code(s): 520494167 (3) Osteomyelitis of toe of right foot Current Visit: Yes Status: Acute Code(s): M86.9 - OSTEOMYELITIS, UNSPECIFIED SNOMED Code(s): 203823193 Plan: 1patient with multiple comorbidities and recently treated for a right diabetic foot abscess requiring extensive debridement drainage of the abscess patient did have MRSA bacteremia on his last hospital visit local culture positive for MRSA as well as drug-resistant Enterobacter and the patient has been receiving outpatient IV Invanz and vancomycin no send to the hospital per advice of the home care nurse concerning for worsening infection patient did not have any fever on presentation to the hospital I did not notice any worsening redness overall left lower extremity swelling redness has improved and wound has decreased in size currently without any worsening infection 2-patient has been eval by vascular surgery recommending no surgical intervention culture obtained are currently pending we will keep the patient on vancomycin and Invanz and if the culture negative we will continue with the vancomycin and Invanz for the 2 weeks to finish a 6-day course of therapy this was discussed with the admitting physician 3-patient complaining of diarrhea severe however looks like he has more frequent soft bowel movement we will add Questran for symptomatic relief clinical doubt C. difficile the specimen has been requested and results will be followed Dictation was produced using [employer] dictation software. please excuse any grammatical, word or spelling errors. Time with Patient: Less than 30
[2023-09-03 17:35] LABS: Glucose,Whole Blood 162 mg/dL (70-110)
[2023-09-03] MEDS: CHOLESTYRAMINE (WITH SUGAR) 4 GM PACKET PO SCH (17:48)
[2023-09-03 20:13] LABS: Glucose,Whole Blood 174 mg/dL (70-110)
[2023-09-03] MEDS: LOPERAMIDE 2 MG CAP PO PRN (20:41)
[2023-09-04 07:09] LABS: Glucose,Whole Blood 168 mg/dL (70-110)
[2023-09-04 08:29] LABS: Basophils # (A) 0.04 X 10*3/uL (0.00-0.10); Basophils % (A) 0.4 %; Eosinophils # (A) 0.41 X 10*3/uL (0.04-0.35); Eosinophils % (A) 4.4 %; HCT 36.1 % (39.6-50.0); HGB 11.7 g/dL (13.0-17.0); Lymphocytes # (A) 2.41 X 10*3/uL (0.90-5.00); MCH 27.9 pg (27.0-32.0); MCHC 32.4 g/dL (32.0-37.0); MCV 86.2 FL (80.0-97.0); Mean Platelet Volume 9.5 FL (9.5-12.2); Monocytes % (A) 7.6 %; NRBC Per 100 WBC 0 X 10*3/uL (0.00-0.01); Neutrophils # (A) 5.68 X 10*3/uL (1.80-7.70); Neutrophils % (A) 61.4 %; Platelet Count 400 X 10*3/uL (140-440); RBC 4.19 X 10*6/uL (4.40-5.60); RDW 13.6 % (11.5-14.5); WBC 9.26 X 10*3/uL (4.50-10.00)
[2023-09-04 08:41] LABS: BUN/Creat Ratio 10.36 Ratio (12.00-20.00); Blood Urea Nitrogen 11.4 mg/dL (9.0-27.0); Calcium 8.9 mg/dL (8.7-10.3); Carbon Dioxide 26.8 mmol/L (21.6-31.8); Chloride 101 mmol/L (96-109); Glucose 187 mg/dL (70-110); Potassium 4.5 mmol/L (3.5-5.5); Sodium 137 mmol/L (135-145)
[2023-09-04 12:23] LABS: Glucose,Whole Blood 171 mg/dL (70-110)
--- NOTE | 2023-09-04 12:28 | P.DS ---
Providers Date of admission: 09/01/23 04:48 Attending physician: Claudine Patel MD Consults: 09/01/23 04:46 Consult Physician Routine Consulting Provider: Hu Mendoza Consult Reason/Comments: osteo Do you want consulting provider notified?: Yes Primary care physician: Deyvi Hurtado Hospital Course: Hospital course Patient is a very pleasant 57-year-old male with a past medical history of hypertension, type II ree-jnmghsm-clugndmuw diabetes mellitus, GERD, diastolic heart failure, moderate to severe pulmonary hypertension, osteomyelitis status post amputation of first and second toes and partial amputation of third toe. Patient recently hospitalized from 07/26/2023 through 08/04/2023 secondary to osteomyelitis and sepsis due to infected diabetic foot ulcer with MRSA b acteremia. During this hospitalization patient underwent I&D of infected foot ulcer on 07/28/2023 and was discharged home on IV antibiotics with Invanz and vancomycin. However, patient reported that he began noticing increased swelling, warmth, and redness over right foot with pain now extending up into his groin and his wound care nurse was concerned that his infection is worsening and sent him to the hospital for evaluation. Upon arrival to our facility, patient underwent evaluation in the emergency department. Vital signs upon arrival show blood pressure 125/77, heart rate 97, respiratory rate 18, temp 98.1 F, and SpO2 of 99% on room air. Labs were completed and reviewed. CBC showing leukocytosis with WBC count of 12.6 and stable normocytic anemia with hemoglobin of 11.6. BMP showing hyperglycemia with glucose of 286 otherwise normal findings. Lactic acid was 1.3. Liver profile showing elevated alkaline phosphatase of 133 otherwise normal findings. X-ray right foot was completed showing inflammatory soft tissue edema/swelling of the amputation bed and diffusely of the right foot with a 2.5 cm subcutaneous ulceration and dorsum of midfoot and concerns of subtle nondisplaced transverse fractures of the proximal third and fourth metatarsals. Patient was admitted under our services for worsening infection of right foot diabetic ulcer. Consults placed to vascular surgery and infectious disease. Patient was seen by vascular surgery. Patient arterial Dopplers that are consistent with vessel hardening. Patient also had lower extremity Dopplers were negative for DVT. Per vascular surgery no surgical intervention needed. Patient was seen by wound care as well who recommended to have the patient follow-up with them in the wound care clinic outpatient. At the time of discharge I discussed with infectious disease who recommended to complete patient's antibiotic course that he was on in the outpatient setting. Patient has about 2 more weeks of Invanz and vancomycin left to go. Discharge diagnosis Right foot osteomyelitis secondary to diabetes mellitus Diabetes mellitus Hypertension Hyperlipidemia Chronic diastolic heart failure Moderate to severe pulmonary hypertension Physical exam General examination - Alert and Oriented 3 in NAD Heart - + S1S2 no murmurs Lungs - Clear to auscultation Abdomen soft NT ND +ve BS Extremities -right foot bandage is intact and dry TRIPOLER - Moving all 4 extremities spontaneously Psych - Calm and cooperative I spent 33 minutes with this discharge Patient Condition at Discharge: Serious Plan - Discharge Summary New Discharge Prescriptions: Continue Empagliflozin [Jardiance] 25 mg PO DAILY Omeprazole [PriLOSEC] 20 mg PO BID Lisinopril-Hctz 20-12.5 mg [Zestoretic 20-12.5] 1 tab PO DAILY Ertapenem [INVanz] 1 gm IVPB DAILY@1700 14 Days each Vancomycin 2,000 mg IVPB Q12H 14 Days each Discharge Medication List Empagliflozin [Jardiance] 25 mg PO DAILY 09/01/23 [History] Lisinopril-Hctz 20-12.5 mg [Zestoretic 20-12.5] 1 tab PO DAILY 09/01/23 [History] Omeprazole [PriLOSEC] 20 mg PO BID 09/01/23 [History] Ertapenem [INVanz] 1 gm IVPB DAILY@1700 14 Days each 09/04/23 [Rx] Vancomycin 2,000 mg IVPB Q12H 14 Days each 09/04/23 [Rx] Follow up Appointment(s)/Referral(s): Deyvi Hurtado MD [Primary Care Provider] - 1-2 days Sowmya San DO [STAFF PHYSICIAN] - 4 Weeks [facility], [NON-STAFF] - 1 Week [facility], [REFERRING] - 1 Week [facility] [NON-STAFF] - 09/18/23 8:00 am Activity/Diet/Wound Care/Special Instructions: Heel walk only right foot. Wound care instructions: Right foot ulcer/wound Cleanse wound with normal saline and apply Santyl, saline moistened gauze, dry gauze, rolled gauze and secure with tape daily Discharge/Stand Alone Forms: Who Do I Call?, Community Resources, Personal Human Resources Benefits Specialist Discharge Disposition: HOME SELF-CARE
[2023-09-04 12:31] VITALS: BP 128/80; PULSE 87; RESP 18; TEMP 98.3
--- NOTE | 2023-09-04 15:40 | P.PN ---
Subjective Progress Note Date: 09/04/23 Principal diagnosis: Reason for follow-up is right diabetic foot infection osteomyelitis Patient is a 57-year-old male with a past medical history significant for diabetes mellitus reflux hypertension patient did have a history of diabetic foot infection with recent admission to the hospital with right diabetic foot infection with an abscess in this patient who status post extensive debridement of the wound down to the wound by vascular surgery on 07/28/2023 cultures were positive for MRSA and Enterobacter treated with the vancomycin and Invanz started back to the hospital by the home care nurse concerning for worsening cellulitis. On today's evaluation that is 09/04/2023,the patient remains to be afebrile, patient is on room air not requiring supplemental oxygen and denies any shortness of breath no chest pain or cough.Patient denies having any nausea or vomiting, no abdominal pain and did mention improvement diarrhea with the Questran. Patient white count is 9.26, creatinine is 1.1 stool for C. difficile is negative local culture growing MRSA and gram-negative Objective - Vital Signs Vital signs: Vital Signs Temp 97.8 F 09/04/23 08:00 Pulse 81 09/04/23 08:00 Resp 17 09/04/23 08:00 BP 129/76 09/04/23 08:00 Pulse Ox 97 09/04/23 08:00 FiO2 Intake & Output 09/03/23 09/04/23 09/04/23 18:59 06:59 18:59 Intake Total 580 590 Balance 580 590 Weight 86.183 kg Intake: Oral 580 590 Other: Voiding Method Toilet Toilet Toilet # Voids 2 1 # Bowel Movements 1 - Exam GENERAL DESCRIPTION: Middle-age male lying in bed in no distress RESPIRATORY SYSTEM: Unlabored breathing , decreased breath sounds at bases HEART: S1 S2 regular rate and rhythm , ABDOMEN: Soft , no tenderness EXTREMITIES: Right foot wound on the dorsum as well as plantar aspect without any worsening or any foul-smelling drainage - Labs CBC & Chem 7: 09/04/23 04:26 09/04/23 04:26 Labs: Abnormal Lab Results - Last 24 Hours (Table) 09/03/23 09/03/23 09/03/23 Range/Units 12:22 17:26 20:11 RBC (4.40-5.60) X 10*6/uL Hgb (13.0-17.0) g/dL Hct (39.6-50.0) % Eosinophils # (0.04-0.35) X 10*3/uL BUN/Creatinine Ratio (12.00-20.00) Ratio Glucose (70-110) mg/dL POC Glucose (mg/dL) 191 H 162 H 174 H (70-110) mg/dL 09/04/23 09/04/23 09/04/23 Range/Units 04:26 04:26 07:07 RBC 4.19 L (4.40-5.60) X 10*6/uL Hgb 11.7 L (13.0-17.0) g/dL Hct 36.1 L (39.6-50.0) % Eosinophils # 0.41 H (0.04-0.35) X 10*3/uL BUN/Creatinine Ratio 10.36 L (12.00-20.00) Ratio Glucose 187 H (70-110) mg/dL POC Glucose (mg/dL) 168 H (70-110) mg/dL Microbiology - Last 24 Hours (Table) 09/01/23 17:00 Gram Stain - Preliminary Foot - Right Wound Culture - Preliminary Gram Neg Bacilli Methicillin resist S. aureus 09/01/23 22:33 Blood Culture - Preliminary Blood Assessment and Plan (1) Diabetic foot infection Status: Acute Code(s): E11.628 - TYPE 2 DIABETES MELLITUS WITH OTHER SKIN COMPLICATIONS; L08.9 - LOCAL INFECTION OF THE SKIN AND SUBCUTANEOUS TISSUE, UNSP SNOMED Code(s): 558071198 (2) Diabetic ulcer of right foot Status: Acute Code(s): E11.621 - TYPE 2 DIABETES MELLITUS WITH FOOT ULCER; L97.519 - NON-PRS CHRONIC ULCER OTH PRT RIGHT FOOT W UNSP SEVERITY SNOMED Code(s): 081532203 (3) Osteomyelitis of toe of right foot Status: Acute Code(s): M86.9 - OSTEOMYELITIS, UNSPECIFIED SNOMED Code(s): 233487751 Plan: 1patient with multiple comorbidities and recently treated for a right diabetic foot abscess requiring extensive debridement drainage of the abscess patient did have MRSA bacteremia on his last hospital visit local culture positive for MRSA as well as drug-resistant Enterobacter and the patient has been receiving outpatient IV Invanz and vancomycin no send to the hospital per advice of the home care nurse concerning for worsening infection patient did not have any fever on presentation to the hospital I did not notice any worsening redness ove rall left lower extremity swelling redness has improved and wound has decreased in size currently without any worsening infection 2-patient has been eval by vascular surgery recommending no surgical i ntervention culture obtained are currently pending we will keep the patient on vancomycin and Invanz and if the culture negative we will continue with the vancomycin and Invanz for the 2 weeks to finish a 6-week course of therapy and close outpatient follow-up 3-patient complaining of diarrhea mention improvement with Questran prescription for Questran has been sent to the pharmacy has been advised to take it at least 3 hours apart from his other oral medication Dictation was produced using [employer] dictation software. please excuse any grammatical, word or spelling errors. Time with Patient: Less than 30
[2023-09-05] MEDS ORDERED: VANCOMYCIN TROUGH DUE 1 EACH MISC MISCELLANE ONE (08:00)
== END 2023-09-04 13:40 | disposition home or self-care (01) | DRG 565 ==
LOC: EC 21:02 → 5NMEDONC 09-01 04:48 → 1SOBS 09-01 13:13 → 5NMEDONC 09-02 17:42
PROVIDERS: ADMIT Internal Medicine; ATTEND Internal Medicine
DX: T87.43 Infection of amputation stump, right lower extremity (principal); I50.32 Chronic diastolic (congestive) heart failure; L03.115 Cellulitis of right lower limb; M86.8X7 Other osteomyelitis, ankle and foot; L97.418 Non-pressure chronic ulcer of right heel and midfoot with other specified severity; E11.621 Type 2 diabetes mellitus with foot ulcer; E11.65 Type 2 diabetes mellitus with hyperglycemia; E11.69 Type 2 diabetes mellitus with other specified complication; I11.0 Hypertensive heart disease with heart failure; I27.20 Pulmonary hypertension, unspecified; I87.8 Other specified disorders of veins; L97.514 Non-pressure chronic ulcer of other part of right foot with necrosis of bone; L98.494 Non-pressure chronic ulcer of skin of other sites with necrosis of bone; Z88.8 Allergy status to other drugs, medicaments and biological substances; E78.5 Hyperlipidemia, unspecified; Z79.84 Long term (current) use of oral hypoglycemic drugs; Z86.19 Personal history of other infectious and parasitic diseases; Z79.4 Long term (current) use of insulin; Z87.891 Personal history of nicotine dependence; Z87.442 Personal history of urinary calculi; Z87.19 Personal history of other diseases of the digestive system
CPT/HCPCS: 36415; 80048; 80053; 80202; 82565; 83036; 83605; 83735; 84100; 85025; 85027; 85652; 86140; 87040; 87070; 87075; 87077; 87186; 87205; 87324; 93922; 96365; 96366; 96367; 96368; 96372; 96375; 99285

== ENCOUNTER 2023-09-25 10:26 | Emergency (ER) | payer OTHER ==
[2023-09-25 10:33] VITALS: RESP 18; TEMP 98.1
[2023-09-25] MEDS: SODIUM CHLORIDE 0.9% 1,000 ML IV STA (11:19)
[2023-09-25] MEDS: KETOROLAC 15 MG/ML 1 ML VIAL IVP STA (11:20)
[2023-09-25] MEDS: MORPHINE SULFATE 2 MG/ML SYRINGE IVP STA (11:21)
[2023-09-25] MEDS: ONDANSETRON 4 MG/2 ML VIAL IVP STA (11:21)
--- NOTE | 2023-09-25 11:29 | ED ---
Wound/Laceration HPI - General Chief Complaint: Wound/Laceration Stated Complaint: R leg pain/swelling Time Seen by Provider: 09/25/23 10:37 Source: patient, RN notes reviewed Mode of arrival: wheelchair Limitations: no limitations - History of Present Illness Initial Comments: This is a 58 year old male who presents to the emergency department for a wound to the right lower extremity. This is a chronic wound per the patient and he is currently receiving vancomycin and Invanz via PICC line. He followed up with wound care today and they were concerned that the redness began spreading up the leg. He had also been exhibiting chills, and they advised he come to the emergency department for evalaution. However, patient states that chills are not uncommon for him and he did not necessarily believe this to be related to infection. This morning he noticed tenderness and erythema in the thigh, which he states that he did not notice yesterday, but states that he does not always pay attention and it may have been there. The leg otherwise does not look or feel any worse to him. - Related Data Home Medications Medication Instructions Recorded Confirmed Empagliflozin [Jardiance] 25 mg PO DAILY 09/01/23 09/01/23 Lisinopril-Hctz 20-12.5 mg 1 tab PO DAILY 09/01/23 09/01/23 [Zestoretic 20-12.5] Omeprazole [PriLOSEC] 20 mg PO BID 09/01/23 09/01/23 Previous Rx's Medication Instructions Recorded Cholestyramine (with Sugar) 4 gm PO BID #20 packet 09/04/23 [Questran] Ertapenem [INVanz] 1 gm IVPB DAILY@1700 14 Days each 09/04/23 Vancomycin 2,000 mg IVPB Q12H 14 Days each 09/04/23 Allergies Allergy/AdvReac Type Severity Reaction Status Date / Time metformin AdvReac Nausea & Verified 09/25/23 10:33 Vomiting & Diarrhea Yjirjxx-UBW-GlR Reductase AdvReac liver Verified 09/25/23 10:33 Inhibitor problems [Dxfzqzj-Msl-Maz Reductase Inhibitor] Review of Systems ROS Statement: Those systems with pertinent positive or pertinent negative responses have been documented in the HPI. ROS Other: All systems not noted in ROS Statement are negative. Past Medical History Past Medical History: Diabetes Mellitus, GERD/Reflux, Hypertension Additional Past Medical History / Comment(s): occ. pain with swallowing at times, hiatal hernia, dry skin, hx kidney stones History of Any Multi-Drug Resistant Organisms: MRSA Date of last positivie culture/infection: 08/02/23 MDRO Source:: Right Foot Past Surgical History: Orthopedic Surgery Additional Past Surgical History / Comment(s): cystoscopy/stent in urethra, olga carpal tunnel, trigger finger left thumb, rt thumb surgery, shoulder surgery Past Anesthesia/Blood Transfusion Reactions: No Reported Reaction Additional Past Anesthesia/Blood Transfusion Reaction / Comment(s): dizziness Past Psychological History: No Psychological Hx Reported Smoking Status: Former smoker Past Alcohol Use History: None Reported Past Drug Use History: Marijuana - Past Family History Mother Family Medical History: Hyperlipidemia Father Family Medical History: Diabetes Mellitus General Exam Limitations: no limitations General appearance: alert, in no apparent distress Head exam: Present: atraumatic, normocephalic, normal inspection Respiratory exam: Present: normal lung sounds bilaterally. Absent: respiratory distress, wheezes, rales, rhonchi, stridor Cardiovascular Exam: Present: regular rate, normal rhythm, normal heart sounds. Absent: systolic murmur, diastolic murmur, rubs, gallop, clicks Extremities exam: Present: other (The right lower extremity is bandaged with erythema and wounds superior to the bandaging of the right foot. Erythema, warmth, and tenderness tracks up into the thigh) Neurological exam: Present: alert, oriented X3, CN II-XII intact Psychiatric exam: Present: normal affect, normal mood Course Vital Signs 09/25/23 09/25/23 09/25/23 10:29 11:25 12:32 Temperature 98.1 F Pulse Rate 100 91 93 Respiratory 18 18 18 Rate Blood Pressure 149/90 142/94 153/98 O2 Sat by Pulse 89 L 97 96 Oximetry 09/25/23 13:24 Temperature Pulse Rate 94 Respiratory 18 Rate Blood Pressure 120/91 O2 Sat by Pulse 97 Oximetry Medical Decision Making - Medical Decision Making This is a 58 year old male who presents to the emergency department for concerns of a worsening wound to the right lower extremity. Was pt. sent in by a medical professional or institution? @ -Wound center Did you speak to anyone other than the patient for history? @ -No Did you review nursing and triage notes? @ -Yes, and I agree, it is accurate with regards to the patient's symptoms. Were old charts reviewed? @ -No Differential Diagnosis? @ -Differential Wound: cellulitis, abscess, osteomyelitis, septic arthritis, this is not meant to be an all-inclusive list. EKG interpreted by me (3pts min.)? @ -Not obtained X-rays interpreted by me (1pt min.)? @ -X-ray of the right foot and tib-fib obtained. My interpretation identifies no acute fractures. CT interpreted by me (1pt min.)? @ -Not obtained U/S interpreted by me (1pt. min.)? @ -Not obtained What testing was considered but not performed? (CT, X-rays, U/S, labs)? Why? @ -None What meds were considered but not given? Why? @ -None Did you discuss the management of the patient with other professionals? @ -No Did you reconcile home meds? @ -No Was smoking cessation discussed for >3mins.? @ -I discussed smoking cessation for greater than 3 minutes. The risk of smoking were discussed with the patient including but not limited to risks of cancer, stroke, coronary artery disease and COPD. Also discussed with patient were multiple methods of quitting smoking. Lastly we discussed the financial cost of smoking. Was critical care preformed (if so, how long)? @ -No Were there social determinants of health that impacted care today? How? (Homelessness, low income, unemployed, alcoholism, drug addiction, transportation, low edu. Level, literacy, decrease access to med. care, halfway, rehab)? @ -No Was there de-escalation of care discussed even if they declined? (Discuss DNR or withdrawal of care, Hospice)? @ -No What co-morbidities impacted this encounter? (DM, HTN, Smoking, COPD, CAD, Cancer, CVA, Hep., AIDS, mental health diagnosis, sleep apnea, morbid obesity)? @ -DM, smoking Was patient admitted / discharged? @ -Discharged. Lab work demonstrates a mild elevation in CRP and was otherwise unremarkable. There was no leukocytosis or elevation of lactic acid. X-ray of the right foot and tib-fib obtained demonstrating areas of osteomyelitis that have been problematic for the patient before. He states that this is a fairly recurrent issue. Patient is already on vancomycin and Invanz via PICC line, which would treat osteomyelitis. Given the unremarkable lab work and patient denying any worsening of symptoms from his point of view, he is comfortable with discharge home. Wound care will be going to his house in 3 days to reevaluate him. Advised following up with this as scheduled and he was given strict return parameters. Undiagnosed new problem with uncertain prognosis? @ -None Drug Therapy requiring intensive monitoring for toxicity (Heparin, Nitro, Insulin, Cardizem)? @ -None Were any procedures done? @ -None Diagnosis/symptom? @ -Right lower extremity cellulitis Acute, or Chronic, or Acute on Chronic? @ -Chronic Uncomplicated (without systemic symptoms) or Complicated (systemic symptoms)? @ -Uncomplicated Side effects of treatment? @ -None Exacerbation, Progression, or Severe Exacerbation] @ -Likely stable Poses a threat to life or bodily function? @ -Not at this time Return precautions reviewed in depth, the patient is instructed to return to the emergency department with any new, worsening, or concerning symptoms. Patient verbalized understanding. This case was discussed in detail with the attending ED physician, Dr. Vazquez. Presentation, findings, and treatment plan discussed in detail as well. - Lab Data Result diagrams: 09/25/23 11:15 09/25/23 11:15 Lab Results 09/25/23 09/25/23 09/25/23 Range/Units 11:15 11:15 11:15 WBC 10.2 (3.8-10.6) k/uL RBC 4.31 (4.30-5.90) m/uL Hgb 12.1 L (13.0-17.5) gm/dL Hct 36.2 L (39.0-53.0) % MCV 83.9 (80.0-100.0) fL MCH 28.0 (25.0-35.0) pg MCHC 33.4 (31.0-37.0) g/dL RDW 15.0 (11.5-15.5) % Plt Count 340 (150-450) k/uL MPV 7.6 Neutrophils % 71 % Lymphocytes % 18 % Monocytes % 6 % Eosinophils % 4 % Basophils % 1 % Neutrophils # 7.2 (1.3-7.7) k/uL Lymphocytes # 1.9 (1.0-4.8) k/uL Monocytes # 0.7 (0-1.0) k/uL Eosinophils # 0.4 (0-0.7) k/uL Basophils # 0.1 (0-0.2) k/uL ESR 29 H (0-20) mm/Hr Sodium 138 (137-145) mmol/L Potassium 4.1 (3.5-5.1) mmol/L Chloride 107 (98-107) mmol/L Carbon Dioxide 25 (22-30) mmol/L Anion Gap 6 mmol/L BUN 14 (9-20) mg/dL Creatinine 0.67 (0.66-1.25) mg/dL Est GFR (CKD-EPI)AfAm >90 (>60 ml/min/1.73 sqM) Est GFR (CKD-EPI)NonAf >90 (>60 ml/min/1.73 sqM) Glucose 266 H (74-99) mg/dL Plasma Lactic Acid Mike 1.2 (0.7-2.0) mmol/L Calcium 9.6 (8.4-10.2) mg/dL Total Bilirubin 0.4 (0.2-1.3) mg/dL AST 27 (17-59) U/L ALT 20 (4-49) U/L Alkaline Phosphatase 138 H (38-126) U/L C-Reactive Protein 2.8 H (<1.0) mg/dL Total Protein 6.8 (6.3-8.2) g/dL Albumin 3.8 (3.5-5.0) g/dL - Radiology Data Radiology results: report reviewed, image reviewed Disposition Clinical Impression: Cellulitis of right lower extremity, Nicotine dependence Disposition: HOME SELF-CARE Instructions (If sedation given, give patient instructions): Cellulitis (ED) Additional Instructions: Return to the emergency department with any new, worsening, or concerning symptoms. Follow up with your primary care provider in 1-2 days. Is patient prescribed a controlled substance at d/c from ED?: No Referrals: Deyvi Hurtado MD [Primary Care Provider] - 1-2 days Time of Disposition: 13:04
[2023-09-25 11:38] LABS: Basophils # (A) 0.1 k/uL (0-0.2); Basophils % (A) 1 %; Eosinophils # (A) 0.4 k/uL (0-0.7); Eosinophils % (A) 4 %; HCT 36.2 % (39.0-53.0); HGB 12.1 gm/dL (13.0-17.5); Lymphocytes # (A) 1.9 k/uL (1.0-4.8); Lymphocytes % (A) 18 %; MCHC 33.4 g/dL (31.0-37.0); MCV 83.9 fL (80.0-100.0); Mean Platelet Volume 7.6; Monocytes # (A) 0.7 k/uL (0-1.0); Monocytes % (A) 6 %; Neutrophils # (A) 7.2 k/uL (1.3-7.7); Neutrophils % (A) 71 %; Platelet Count 340 k/uL (150-450); RBC 4.31 m/uL (4.30-5.90); WBC 10.2 k/uL (3.8-10.6)
--- NOTE | 2023-09-25 12:20 | XR ---
EXAMINATION TYPE: XR tibia fibula 2V RT, XR foot complete 3V RT DATE OF EXAM: 09/25/2023 COMPARISON: NONE HISTORY: 58-year-old male with infection, pain FINDINGS: Right tibia/fibula: Mild generalized subcutaneous soft tissue swelling. No acute fracture. No periost itis or lysis. Ankle articulation and knee articulation grossly intact. Right foot: Previous great toe amputation at the level of the distal third metatarsal shaft. There m ay have been previous second toe amputation as well. However, there is a large soft tissue ulcer at t he stump with bony erosion of the second metatarsal neck osteotomy margin and additional osseous dest ruction centered at the third MTP joint. Demineralization of the fourth metatarsal head. Additional d orsal midfoot soft tissue ulcer. IMPRESSION: 1. Right tibia/fibula: Mild soft tissue swelling. No acute osseous or remotely seen. 2. Right foot: Previous great toe and second toe amputations. Stump soft tissue ulcer and additional dorsal midfoot soft tissue ulcer. There is evidence of a contiguous osteomyelitis at the second metat arsal head/neck and additional osseous destruction centered at the third MTP joint.
[2023-09-25 12:41] LABS: ALT 20 U/L (4-49); AST 27 U/L (17-59); African American GFR (CKD) >90 (>60 ml/min/1.73 sqM); Albumin 3.8 g/dL (3.5-5.0); Alkaline Phosphatase 138 U/L (38-126); Anion Gap 6 mmol/L; Blood Urea Nitrogen 14 mg/dL (9-20); C Reactive Protein 2.8 mg/dL (<1.0); Calcium 9.6 mg/dL (8.4-10.2); Carbon Dioxide 25 mmol/L (22-30); Chloride 107 mmol/L (98-107); Glucose 266 mg/dL (74-99); Non-African American GFR(CKD) >90 (>60 ml/min/1.73 sqM); Potassium 4.1 mmol/L (3.5-5.1); Sodium 138 mmol/L (137-145); Total Bilirubin 0.4 mg/dL (0.2-1.3); Total Protein 6.8 g/dL (6.3-8.2)
[2023-09-25 13:28] VITALS: BP 120/91; PULSE 94
[2023-09-25 15:08] LABS: Erythrocyte Sedimentation Rate 29 mm/Hr (0-20)
== END 2023-09-25 13:30 | disposition home or self-care (01) ==
LOC: EC 10:26
DX: L03.115 Cellulitis of right lower limb (principal); F12.90 Cannabis use, unspecified, uncomplicated; Z88.8 Allergy status to other drugs, medicaments and biological substances; Z87.891 Personal history of nicotine dependence
CPT/HCPCS: 99406; 99284; 96374; 96375 ×2; 96361; 36415; 80053; 85652; 83605; 85025; 86140; 73590; 73630; J2405; J2270; J1885

== ENCOUNTER 2023-11-17 19:08 | Inpatient (IN) | payer OTHER ==
--- NOTE | 2023-11-17 19:23 | ED ---
Skin/Abscess/FB HPI - General Chief complaint: Skin/Abscess/Foreign Body Stated complaint: Both leg swelling Time Seen by Provider: 11/17/23 19:21 Source: patient, RN notes reviewed Mode of arrival: wheelchair Limitations: no limitations - History of Present Illness Initial comments: 58-year-old male with chronic leg wounds presents emergency department chief complaint of bilateral lower extremity worsening edema and erythema. Patient states that he was recommended by his natural resources specialist, Dr. Harden, to report to the emergency department on Thursday for IV antibiotics, he was busy and unable to come until today. States since that he began to feel nauseous today a few hours ago. denies fevers, chills, vomiting, abdominal pain. he follows with natural resources specialist 1 time per week in office and has an at home nurse come during the week as well to help changes dressings. - Related Data Home Medications Medication Instructions Recorded Confirmed Empagliflozin [Jardiance] 25 mg PO DAILY 09/01/23 11/17/23 Lisinopril-Hctz 20-12.5 mg 1 tab PO DAILY 09/01/23 11/17/23 [Zestoretic 20-12.5] Omeprazole [PriLOSEC] 20 mg PO BID 09/01/23 11/17/23 Allergies Allergy/AdvReac Type Severity Reaction Status Date / Time metformin AdvReac Nausea & Verified 11/17/23 19:48 Vomiting & Diarrhea Vxaigam-OVU-AtA Reductase AdvReac liver Verified 11/17/23 19:48 Inhibitor problems [Ulhrabj-Jyy-Wxf Reductase Inhibitor] Review of Systems ROS Statement: Those systems with pertinent positive or pertinent negative responses have been documented in the HPI. ROS Other: All systems not noted in ROS Statement are negative. Past Medical History Past Medical History: Diabetes Mellitus, GERD/Reflux, Hypertension Additional Past Medical History / Comment(s): occ. pain with swallowing at times, hiatal hernia, dry skin, hx kidney stones History of Any Multi-Drug Resistant Organisms: MRSA Date of last positivie culture/infection: 08/02/23 MDRO Source:: Right Foot Past Surgical History: Orthopedic Surgery Additional Past Surgical History / Comment(s): cystoscopy/stent in urethra, olga carpal tunnel, trigger finger left thumb, rt thumb surgery, shoulder surgery Past Anesthesia/Blood Transfusion Reactions: No Reported Reaction Additional Past Anesthesia/Blood Transfusion Reaction / Comment(s): dizziness Past Psychological History: No Psychological Hx Reported Past Drug Use History: Marijuana - Past Family History Mother Family Medical History: Hyperlipidemia Father Family Medical History: Diabetes Mellitus General Exam - General Exam Comments Initial Comments: Visual Physical Exam Vital signs reviewed General: Well-appearing, nontoxic, no acute distress. Head: Normocephalic, atraumatic Eyes: PERRLA, EOMI ENT: Airway patent Chest: Nonlabored breathing Skin: No visual rash, normal skin tone Neuro: Alert and oriented 3 Musculoskeletal: No gross abnormalities Limitations: no limitations General appearance: alert, in no apparent distress, obese Head exam: Present: atraumatic, normocephalic, normal inspection Neck exam: Present: normal inspection. Absent: tenderness, meningismus, lymphadenopathy Respiratory exam: Present: normal lung sounds bilaterally. Absent: respiratory distress, wheezes, rales, rhonchi, stridor Cardiovascular Exam: Present: regular rate, normal rhythm, normal heart sounds. Absent: systolic murmur, diastolic murmur, rubs, gallop, clicks GI/Abdominal exam: Present: soft, normal bowel sounds. Absent: distended, tende rness, guarding, rebound, rigid Extremities exam: Present: tenderness, other (bilateral LE erythema, edema, weeping of the RLE) Right Upper Leg exam: Present: tenderness, swelling, erythema Lower Leg exam: Present: tenderness, swelling, erythema Neurovascular tendon exam: Present: no vascular compromise Gait: not tested/not observed Back exam: Present: normal inspection Skin exam: Present: warm, dry, intact, normal color. Absent: rash Course Vital Signs 11/17/23 19:10 Temperature 98.2 F Pulse Rate 109 H Respiratory 18 Rate Blood Pressure 154/93 O2 Sat by Pulse 97 Oximetry Medical Decision Making - Medical Decision Making Was pt. sent in by a medical professional or institution (, PA, MACHINE FITTER, urgent care, hospital, or fci...) When possible be specific @ -Patient was advised by wound center to point to the emergency department for further evaluation of acute on chronic lower extremity wounds Did you speak to anyone other than the patient for history (EMS, parent, family, police, friend...)? What history was obtained from this source @ -No Did you review nursing and triage notes (agree or disagree)? Why? @ -I reviewed and agree with nursing and triage notes Were old charts reviewed (outside hosp., previous admission, EMS record, old EKG, old radiological studies, urgent care reports/EKG's, fci records)? Report findings @ -The patient's previous microbiology report which revealed that there was MRSA and additional bacteria and growth Differential Diagnosis (chest pain, altered mental status, abdominal pain women, abdominal pain men, vaginal bleeding, weakness, fever, dyspnea, syncope, headache, dizziness, GI bleed, back pain, seizure, CVA, palpatations, mental health, musculoskeletal)? @ -Cellulitis, chronic wounds, venous insufficiency, peripheral vascular disease, this is not all inclusive EKG interpreted by me (3pts min.). @ -None X-rays interpreted by me (1pt min.). @ -None done CT interpreted by me (1pt min.). @ -None done U/S interpreted by me (1pt. min.). @ -None done What testing was considered but not performed or refused? (CT, X-rays, U/S, labs)? Why? @ -None What meds were considered but not given or refused? Why? @ -None Did you discuss the management of the patient with other professionals (professionals i.e. , PA, MACHINE FITTER, lab, RT, psych nurse, social media senior associate, sail cutter, teacher, traffic officer, caser shoe parts)? Give summary @ -Spoke with sound internal medicine physician, Dr. Estrada, in regard to the patient's presentation of worsening bilateral lower extremity cellulitis and patient is excepted with admission to internal medicine infectious disease and wound care on consult. Patient will be started on gentamicin as this antibiotic is susceptible to both bacteria that were cultured during patient's most recent emergency department visit Was smoking cessation discussed for >3mins.? @ -No Was critical care preformed (if so, how long)? @ -No Were there social determinants of health that impacted care today? How? (Homelessness, low income, unemployed, alcoholism, drug addiction, transportation, low edu. Level, literacy, decrease access to med. care, senior living, rehab)? @ -No Was there de-escalation of care discussed even if they declined (Discuss DNR or withdrawal of care, Hospice)? DNR status @ -No What co-morbidities impacted this encounter? (DM, HTN, Smoking, COPD, CAD, Cancer, CVA, ARF, Chemo, Hep., AIDS, mental health diagnosis, sleep apnea, morbid obesity)? @ -None Was patient admitted / discharged? Hospital course, mention meds given and route, prescriptions, significant lab abnormalities, going to OR and other per tinent info. @ -Admitted. 58-year-old male with worsening chronic bilateral lower extremity wounds. Patient's vitals are stable upon arrival, there is erythema of the right lower extremity spreading proximally to the mid thigh with weeping of the right lower extremity. CBC within normal limits, CMP reveals elevated glucose of 310, mildly elevated lactate at 2.1 CRP elevated at 6.1. Due to recommendation from wound center and worsening presentation of chronic cellulitis patient will be admitted for IV antibiotics and infectious disease consult. Patient started on gentamicin. Dis cussed with Dr. Rodriguez Undiagnosed new problem with uncertain prognosis? @ -No Drug Therapy requiring intensive monitoring for toxicity (Heparin, Nitro, Insulin, Cardizem)? @ -No Were any procedures done? @ -No Diagnosis/symptom? @ -Cellulitis Acute, or Chronic, or Acute on Chronic? @ -Acute on chronic Uncomplicated (without systemic symptoms) or Complicated (systemic symptoms)? @ -uncomplicated Side effects of treatment? @ -No Exacerbation, Progression, or Severe Exacerbation? @ -No Poses a threat to life or bodily function? How? (Chest pain, USA, AR, pneumonia, PE, COPD, DKA, ARF, appy, cholecystitis, CVA, Diverticulitis, Homicidal, Suicidal, threat to staff... and all critical care pts) @ -No - Lab Data Result diagrams: 11/17/23 19:27 11/17/23 19:27 Lab Results 11/17/23 11/17/23 11/17/23 Range/Units 19:27 19:27 19: WBC 5.8 (3.8-10.6) k/uL RBC 4.10 L (4.30-5.90) m/uL Hgb 11.2 L (13.0-17.5) gm/dL Hct 33.9 L (39.0-53.0) % MCV 82.8 (80.0-100.0) fL MCH 27.3 (25.0-35.0) pg MCHC 33.0 (31.0-37.0) g/dL RDW 15.5 (11.5-15.5) % Plt Count 390 (150-450) k/uL MPV 7.1 Neutrophils % 70 % Lymphocytes % 20 % Monocytes % 7 % Eosinophils % 2 % Basophils % 0 % Neutrophils # 4.1 (1.3-7.7) k/uL Lymphocytes # 1.2 (1.0-4.8) k/uL Monocytes # 0.4 (0-1.0) k/uL Eosinophils # 0.1 (0-0.7) k/uL Basophils # 0.0 (0-0.2) k/uL Sodium 136 L (137-145) mmol/L Potassium 3.9 (3.5-5.1) mmol/L Chloride 102 (98-107) mmol/L Carbon Dioxide 24 (22-30) mmol/L Anion Gap 10 mmol/L BUN 18 (9-20) mg/dL Creatinine 0.89 (0.66-1.25) mg/dL Est GFR (CKD-EPI)AfAm >90 (>60 ml/min/1.73 sqM) Est GFR (CKD-EPI)NonAf >90 (>60 ml/min/1.73 sqM) Glucose 310 H (74-99) mg/dL Plasma Lactic Acid Mike 2.1 H* (0.7-2.0) mmol/L Calcium 8.8 (8.4-10.2) mg/dL Total Bilirubin 0.5 (0.2-1.3) mg/dL AST 44 (17-59) U/L ALT 25 (4-49) U/L Alkaline Phosphatase 136 H (38-126) U/L C-Reactive Protein 6.1 H (<1.0) mg/dL Total Protein 6.1 L (6.3-8.2) g/dL Albumin 3.3 L (3.5-5.0) g/dL Disposition Clinical Impression: Cellulitis Disposition: [facility] Condition: Stable Is patient prescribed a controlled substance at d/c from ED?: No Decision to Admit Reason: Admit from EC Decision Date: 11/17/23 Decision Time: 20:46
[2023-11-17 19:53] LABS: Basophils % (A) 0 %; Eosinophils # (A) 0.1 k/uL (0-0.7); Eosinophils % (A) 2 %; HCT 33.9 % (39.0-53.0); HGB 11.2 gm/dL (13.0-17.5); Lymphocytes # (A) 1.2 k/uL (1.0-4.8); Lymphocytes % (A) 20 %; MCH 27.3 pg (25.0-35.0); MCV 82.8 fL (80.0-100.0); Mean Platelet Volume 7.1; Monocytes # (A) 0.4 k/uL (0-1.0); Monocytes % (A) 7 %; Neutrophils # (A) 4.1 k/uL (1.3-7.7); Neutrophils % (A) 70 %; Platelet Count 390 k/uL (150-450); RDW 15.5 % (11.5-15.5); WBC 5.8 k/uL (3.8-10.6)
[2023-11-17] MEDS: MORPHINE SULFATE 2 MG/ML SYRINGE IVP ONE (20:04)
[2023-11-17] MEDS: ONDANSETRON 4 MG/2 ML VIAL IVP STA (20:05)
[2023-11-17 20:19] LABS: ALT 25 U/L (4-49); AST 44 U/L (17-59); African American GFR (CKD) >90 (>60 ml/min/1.73 sqM); Albumin 3.3 g/dL (3.5-5.0); Alkaline Phosphatase 136 U/L (38-126); Anion Gap 10 mmol/L; Blood Urea Nitrogen 18 mg/dL (9-20); C Reactive Protein 6.1 mg/dL (<1.0); Calcium 8.8 mg/dL (8.4-10.2); Carbon Dioxide 24 mmol/L (22-30); Chloride 102 mmol/L (98-107); Glucose 310 mg/dL (74-99); Non-African American GFR(CKD) >90 (>60 ml/min/1.73 sqM); Potassium 3.9 mmol/L (3.5-5.1); Sodium 136 mmol/L (137-145); Total Bilirubin 0.5 mg/dL (0.2-1.3); Total Protein 6.1 g/dL (6.3-8.2)
[2023-11-17] MEDS ORDERED: NALOXONE 0.4 MG/ML 1 ML VIAL IV PRN (20:42)
[2023-11-17] MEDS ORDERED: ACETAMINOPHEN TAB 325 MG TAB PO PRN (20:42)
[2023-11-17] MEDS ORDERED: GENTAMICIN PER PHARMACY MISCELLANE PRN (20:54)
[2023-11-17] MEDS: SODIUM CHLORIDE 0.9% 1,000 ML IV SCH (21:23)
[2023-11-17] MEDS: GENTAMICIN 380 MG in SODIUM CHLORIDE 0.9% 100 ML IVPB SCH (21:28)
--- NOTE | 2023-11-17 22:37 | P.HPIM ---
History of Present Illness H&P Date: 11/17/23 Patient is a 58-year-old male with a PMH of type 2 diabetes with peripheral neuropathy, diastolic CHF, hypertension, R foot osteomyelitis, GERD presents to the ED with cellulitis in setting of chronic nonhealing ulcers. Patient has been following with wound-care weekly for past several months and was told to go to the emergency department for IV antibiotics 4 days ago. As per ED documentation, patient noted that he was busy and wasn't able to come in. This has been happening since 2019. Patient states these wounds started from a blister and progressively got worse. Says the wounds come and go, and cause him some moderate pain. He also states that there has been increased swelling in both o f his lower extremities. Patient admits to nausea and headache. Denies any fever, chills, abdominal pain, vomiting. No pertinent imaging Hgb 11.2, MCV 82.8, lactic acid 2.1, glucose 310, CRP 6.1, total protein 6.1, albumin 3.3 alk phos 136, sodium 136, BUN 18, creatinine 0.89 T 98.2 F, WI 109, RR 18, BP 154/93, O2 sat 97% on room air ED documentation reviewed. Review of systems: Pertinent positives and negatives as discussed in HPI, a complete review of systems was performed and all other systems are negative. Social history: Tobacco: Former [id number] smoker, quit 3 years ago Alcohol: Denies alcohol use Recreational drugs: Marijuana Travel: No recent travel Occupation: Unemployed Physical examination: Vital signs reviewed General: non toxic, no distress, appears at stated age, normal weight Derm: no unusual rashes/lesions, warm Head: atraumatic, normocephalic, symmetric Eyes: EOMI, anicteric sclera, pupils equal round reactive to light ENT: Nose and ears atraumatic Mouth: no lip lesion, mucus membranes moist Cardiovascular: S1S2 reg, no murmur, positive dorsalis pedis pulse bilateral, bilateral 1+ lower extremity edema Lungs: CTA bilateral, no rhonchi, no rales, no accessory muscle use Abdominal: soft, nontender to palpation, no guarding Ext: muscle strength 5 out of 5 in all 4 extremities grossly, 5-6 cm grade-2 right non-healing ulcer on plantar surface of right foot with purulent discharge with erythema extending to mid-allen, erythema located from mid-allen to foot seen on left lower extremity, tenderness to palpation Neuro: CN II-XI grossly intact, decreased bilateral foot sensation grossly Psych: Alert, oriented, appropriate affect Assessment/Plan: 58-year-old male with a past medical history of type 2 diabetes, hypertension, GERD presents to the ED with worsening cellulitis. #. RLE cellulitis secondary to chronic nonhealing foot ulcer in setting of bilateral venous stasis dermatitis Placed on gentamicin dosed by pharmacy in ED Pain management: Acetaminophen 650 PO q6hr PRN, Motrin 400 mg PO q6hr PRN, morphine sulfate 4 mg IV q4hr PRN Currently on NS @ 20 cc/hr Right foot x-ray ordered Obtain blood cultures Wound care consulted ID consulted #. Diastolic CHF, not in acute exacerbation EF on echocardiogram on 07/29/23 5055% Patient went bilateral 1+ lower extremity edema Lisinopril/HCTZ on hold due to borderline low BP, consider resuming once low BP resolves #. Type 2 diabetes, complicated with bilateral foot diabetic neuropathy Holding home oral diabetic medication Placed on insulin SQ sliding scale Monitor glucose levels #. Normocytic anemia Hgb 11.2 (baseline Hgb ~12), MCV 82.8 Patient denies active bleeding Monitor CBC #. Hypertension Hold lisinopril/HCTZ 2012.51 each PO daily due to borderline low BP of 100/69 #. GERD Continue management Protonix 40 mg PO BID Lactic acidosis, resolved DVT prophylaxis: Lovenox 40 SQ daily F: NS @ 20 cc/hr E: Replete electrolytes as needed N: Consistent carbohydrate diet A: Fall precautions, consult PT The patient is admitted with an anticipated rater than 2 midnight stay for evaluation of cellulitis secondary to chronic lower extremity nonhealing ulcer. CODE STATUS: Full Discussed with: Patient Anticipated discharge place: Unknown Past Medical History Past Medical History: Diabetes Mellitus, GERD/Reflux, Hypertension Additional Past Medical History / Comment(s): occ. pain with swallowing at times, hiatal hernia, dry skin, hx kidney stones History of Any Multi-Drug Resistant Organisms: MRSA Date of last positivie culture/infection: 08/02/23 MDRO Source:: Right Foot Past Surgical History: Orthopedic Surgery Additional Past Surgical History / Comment(s): cystoscopy/stent in urethra, olga carpal tunnel, trigger finger left thumb, rt thumb surgery, shoulder surgery Past Anesthesia/Blood Transfusion Reactions: No Reported Reaction Additional Past Anesthesia/Blood Transfusion Reaction / Comment(s): dizziness Past Psychological History: No Psychological Hx Reported Past Drug Use History: Marijuana - Past Family History Mother Family Medical History: Hyperlipidemia Father Family Medical History: Diabetes Mellitus Medications and Allergies Home Medications Medication Instructions Recorded Confirmed Type Empagliflozin [Jardiance] 25 mg PO DAILY 09/01/23 11/17/23 History Lisinopril-Hctz 20-12.5 mg 1 tab PO DAILY 09/01/23 11/17/23 History [Zestoretic 20-12.5] Omeprazole [PriLOSEC] 20 mg PO BID 09/01/23 11/17/23 History Allergies Allergy/AdvReac Type Severity Reaction Status Date / Time metformin AdvReac Nausea & Verified 11/17/23 19:48 Vomiting & Diarrhea Obuuxip-YQW-UoQ Reductase AdvReac liver Verified 11/17/23 19:48 Inhibitor problems [Oyewgyb-Tjs-Wyj Reductase Inhibitor] Physical Exam Vitals: Vital Signs Temp Pulse Resp BP Pulse Ox 11/17/23 19:10 98.2 F 109 H 18 154/93 97 Intake and Output 11/17/23 11/17/23 11/17/23 06:59 14:59 22:59 Other: Weight 92.533 kg Results CBC & Chem 7: 11/17/23 19:27 11/17/23 19:27 Labs: Abnormal Lab Results - Last 24 Hours (Table) 11/17/23 11/17/23 11/17/23 Range/Units 19:27 19:27 19:27 RBC 4.10 L (4.30-5.90) m/uL Hgb 11.2 L (13.0-17.5) gm/dL Hct 33.9 L (39.0-53.0) % Sodium 136 L (137-145) mmol/L Glucose 310 H (74-99) mg/dL Plasma Lactic Acid Mike 2.1 H* (0.7-2.0) mmol/L Alkaline Phosphatase 136 H (38-126) U/L C-Reactive Protein 6.1 H (<1.0) mg/dL Total Protein 6.1 L (6.3-8.2) g/dL Albumin 3.3 L (3.5-5.0) g/dL
[2023-11-18] MEDS: MORPHINE SULFATE 4 MG/ML SYRINGE IV PRN (05:40)
[2023-11-18] MEDS: ONDANSETRON 4 MG/2 ML VIAL IVP PRN (05:40)
[2023-11-18 07:20] LABS: Glucose,Whole Blood 181 mg/dL (70-110)
[2023-11-18 07:31] LABS: INR 0.9 (<1.2); Partial Thromboplastin Time 25.5 sec (22.0-30.0); Prothrombin Time 10.4 sec (10.0-12.5)
[2023-11-18] MEDS ORDERED: VANCOMYCIN IV PER PHARMACY 1 EACH MISC MISCELLANE PRN (07:49)
[2023-11-18] MEDS: INSULIN ASPART (NovoLOG) 100 UNIT/ML VIAL SQ SCH (08:17)
[2023-11-18] MEDS: CEFEPIME 2 GM in SODIUM CHLORIDE 0.9% 100 ML IVPB SCH (08:17)
[2023-11-18] MEDS: PANTOPRAZOLE 40 MG TABLET PO SCH (08:18)
[2023-11-18] MEDS ORDERED: LISINOPRIL-HCTZ 20-12.5 MG 1 EACH TAB PO SCH (09:00)
[2023-11-18] MEDS: VANCOMYCIN 1,500 MG in SODIUM CHLORIDE 0.9% 500 ML 500 ML IVPB SCH (09:09)
--- NOTE | 2023-11-18 10:11 | XR ---
EXAMINATION TYPE: XR foot complete RT DATE OF EXAM: 11/18/2023 CLINICAL HISTORY: pain TECHNIQUE: Frontal, lateral and oblique images of the right foot are obtained. COMPARISON: 09/25/2019 FINDINGS: Soft tissue swelling with soft tissue ulceration dorsum of the right foot. Amputations of t he first and second toes. Osseous irregularity about the osteotomy site distal right metatarsal could reflect underlying osteomyelitis. There is also irregularity of the third metatarsal head bony fragm entation at the base of the proximal phalanx right third toe. Osteomyelitis not excluded. IMPRESSION: As above
--- NOTE | 2023-11-18 10:28 | XR ---
EXAMINATION TYPE: XR chest 2V DATE OF EXAM: 11/18/2023 COMPARISON: 08/04/2023 HISTORY: Chest pain TECHNIQUE: Frontal and lateral views of the chest are obtained. FINDINGS: There is no focal air space opacity. No evidence for pneumothorax. No pleural effusion. The cardiac silhouette size is within normal limits. The osseous structures are grossly intact. IMPRESSION: 1. No acute cardiopulmonary process.
[2023-11-18 10:36] LABS: Basophils # (A) 0.05 X 10*3/uL (0.00-0.10); Basophils % (A) 0.8 %; Eosinophils % (A) 3.2 %; HCT 34.7 % (39.6-50.0); Lymphocytes # (A) 1.96 X 10*3/uL (0.90-5.00); Lymphocytes % (A) 31.2 %; MCH 26.4 pg (27.0-32.0); MCHC 31.7 g/dL (32.0-37.0); MCV 83.2 FL (80.0-97.0); Mean Platelet Volume 9.1 FL (9.5-12.2); Monocytes # (A) 0.61 X 10*3/uL (0.20-1.00); Monocytes % (A) 9.7 %; NRBC Per 100 WBC 0 X 10*3/uL (0.00-0.01); Neutrophils # (A) 3.45 X 10*3/uL (1.80-7.70); Neutrophils % (A) 54.8 %; Platelet Count 401 X 10*3/uL (140-440); RBC 4.17 X 10*6/uL (4.40-5.60); RDW 15.1 % (11.5-14.5); WBC 6.29 X 10*3/uL (4.50-10.00)
[2023-11-18 10:44] LABS: ALT 35 U/L (10-49); AST 51 U/L (14-35); Albumin 3.3 g/dL (3.8-4.9); Albumin/Globulin Ratio 1.27 Ratio (1.60-3.17); Alkaline Phosphatase 160 U/L (41-126); Blood Urea Nitrogen 13.5 mg/dL (9.0-27.0); Calcium 8.7 mg/dL (8.7-10.3); Carbon Dioxide 25.5 mmol/L (21.6-31.8); Chloride 104 mmol/L (96-109); Globulin 2.6 g/dL (1.6-3.3); Glucose 182 mg/dL (70-110); Magnesium 1.9 mg/dL (1.5-2.4); Potassium 4.2 mmol/L (3.5-5.5); Sodium 139 mmol/L (135-145); Total Bilirubin 0.3 mg/dL (0.3-1.2); Total Protein 5.9 g/dL (6.2-8.2)
--- NOTE | 2023-11-18 11:17 | P.CONS ---
History of Present Illness - Reason for Consult Consult date: 11/18/23 wound care - History of Present Illness This is a 58-year-old patient known to the wound care center with history of peripheral neuropathy diabetes CHF right foot osteomyelitis, And history of amputation.Patient was seen in the wound care center on Thursday where he was found to have increased temperature increased edema circumferentially to the right foot and lower leg that was consistent with possible infection. Increased pain with palpation no purulent drainage noted. Patient did have a new plantar lateral wound to the right foot. No tunneling or communication were found between the prior wound and the new wound. Patient does have necrotic tissue noted. Patient was instructed to go to the emergency room after his appointment however he did not go until Thursday night. Patient was previously on oral antibiotics. Diabetic Wound/Ulcer of the Lower Extremity and is located on the Left,Anterior Lower Leg. The wound measures 0.2cm length x 0.5cm width x 0.1cm depth; 0.079cm^2 area and 0.008cm^3 volume. There is no tunneling or undermining noted. There is a none present amount of drainage noted. The wound margin is thickened. There is large (67-100%) red granulation within the wound bed. There is a small (1-33%) amount of necrotic tissue within the wound bed including Adherent Slough. The periwound skin appearance exhibited: Dry/Scaly, Erythema. The periwound skin appearance did not exhibit: Callus, Crepitus, Excoriation, Induration, Rash, Scarring, Maceration, Atrophie Melissa, Cyanosis, Ecchymosis, Hemosiderin Staining, Mottled, Pallor. The surrounding wound skin color is noted with erythema which is circumferential. Periwound temperature was noted as No Abnormality. Diabetic Wound/Ulcer of the Lower Extremity and is located on the Right,Lateral,Plantar Foot. The wound measures 0.4cm length x 0.7cm width x 0.5cm depth; 0.22cm^2 area and 0.11cm^3 volume. There is Fat Layer (Subcutaneous Tissue) exposed. There is no tunneling noted. There is a medium amount of serosanguineous drainage noted. The wound margin is thickened. There is a large (67-100%) amount of necrotic tissue within the wound bed including Adherent Slough. The periwound skin appearance exhibited: Callus, Maceration, Erythema. The periwound skin appearance did not exhibit: Crepitus, Excoriation, Indura tion, Rash, Scarring, Dry/Scaly, Atrophie Axson, Cyanosis, Ecchymosis, Hemosiderin Staining, Mottled, Pallor, Rubor. The surrounding wound skin color is noted with erythema which is circumferential. Periwound temperature was noted as No Abnormality. The periwound has tenderness on palpation. Grade 2 wound with etiology of Diabetic Wound/Ulcer of the Lower Extremity and is located on the Right,Dorsal Foot. The wound measures 1.1cm length x 1.2cm width x 0.7cm depth; 1.037cm^2 area and 0.726cm^3 volume. There is tendon and Fat Layer (Subcutaneous Tissue) exposed. There is no tunneling or undermining noted. There is a medium amount of serosanguineous drainage noted. The wound margin is distinct with the outline attached to the wound base. There is small (1-33%) pink granulation within the wound bed. There is a large (67-100%) amount of necrotic tissue within the wound bed including Adherent Slough. The periwound skin appearance exhibited: Callus, Scarring, Maceration, Erythema. The periwound skin appearance did not exhibit: Crepitus, Excoriation, Induration, Rash, Dry/Scaly, Atrophie Axson, Cyanosis, Ecchymosis, Hemosiderin Staining, Mottled, Pallor. The surrounding wound skin color is noted with erythema which is circumferential. Periwound temperature was noted as No Abnormality.Grade 2 wound with etiology of Diabetic Wound/Ulcer of the Lower Extremity and is located on the Right,Plantar Foot. The wound measures 1.3cm length x 0.3cm width x 2.3cm depth; 0.306cm^2 area and 0.705cm^3 volume. There is bone, Fat Layer (Subcutaneous Tissue), and fascia exposed. There is no tunneling or undermining noted. There is a large amount of serosanguineous drainage noted. The wound margin is distinct with the outline attached to the wound base. There is small (1-33%) red, pink granulation within the wound bed. There is a large (67-100%) amount of necrotic tissue within the wound bed including Adherent Slough. The periwound skin appearance exhibited: Callus, Scarring, Maceration, Erythema. The periwound skin appearance did not exhibit: Crepitus, Excoriation, Induration, Rash, Dry/Scaly, Atrophie Axson, Cyanosis, Ecchymosis, Hemosiderin Staining, Mottled, Pallor, Rubor. The surrounding wound skin color is noted with erythema. Periwound temperature was noted as No Abnormality. The periwound has tenderness on palpation.Grade 2 wound with etiology of Diabetic Wound/Ulcer of the Lower Extremity and is located on the Right,Medial Lower Leg. The wound measures 0.1cm length x 0.1cm width x 0.1cm depth; 0.008cm^2 area and 0.001cm^3 volume. There is no tunneling or undermining noted. There is a small amount of serosanguineous drainage noted. The wound margin is flat and intact. There is large (67-100%) red granulation within the wound bed. There is a small (1-33%) amount of necrotic tissue within the wound bed including Adherent Slough. The periwound skin appearance exh ibited: Erythema. The periwound skin appearance did not exhibit: Callus, Crepitus, Excoriation, Induration, Rash, Scarring, Dry/Scaly, Maceration, Atrophie Melissa, Cyanosis, Ecchymosis, Hemosiderin Staining, Mottled, Pallor, Rubor. The surrounding wound skin color is noted with erythema which is ci rcumferential. Periwound temperature was noted as No Abnormality. Review Of Systems: Constitutional: No fever, no chills, no night sweats. No weight change. No weakness, fatigue or lethargy. No daytime sleepiness. Integumentary:reports wounds, no lesions. No rash or pruritus. No unusual bruising. No change in hair or nails. Physical exam: General Appearance: Alert, cooperative, no distress, appears stated age. Skin: See HPI all other Skin color, texture, tugor normal, no rashes or lesions. Neurologic: Alert oriented x3 Assessment: 1. Nonhealing ulceration of other part of right foot with bone necrosis 2. Nonpressure chronic ulcer of other part of right lower extremity with fat la cari exposure 3. Cellulitis of right lower extremity 4. Diabetic foot ulcer 5. Osteomyelitis of right foot Plan: 1.Apply absorptive silver, saline moist gauze, dry gauze, rolled gauze and secure with paper tape. Change Thursday. Patient will return to the wound care center to be seen on ThursdayNovember 19 at 915. Thank you for the consultation any questions please contact the wound care center DNP note has been reviewed and discussed with Dr. Airza and the impression and plan of care has been directed as dictated. Past Medical History Past Medical History: Heart Failure, Diabetes Mellitus, GERD/Reflux, Hypertension, Pulmonary Embolus (PE) Additional Past Medical History / Comment(s): occ. pain with swallowing at times, hiatal hernia, dry skin, hx kidney stones, non healing foot ulcers History of Any Multi-Drug Resistant Organisms: MRSA Year Discovered:: 08/02/23 MDRO Source:: Right Foot Past Surgical History: Orthopedic Surgery Additional Past Surgical History / Comment(s): cystoscopy/stent in urethra, olga carpal tunnel, trigger finger left thumb, rt thumb surgery, shoulder surgery Past Anesthesia/Blood Transfusion Reactions: No Reported Reaction Additional Past Anesthesia/Blood Transfusion Reaction / Comm: dizziness Past Psychological History: No Psychological Hx Reported Smoking Status: Former smoker Past Alcohol Use History: None Reported Additional Past Alcohol Use History / Comment(s): smoked for 30 yrs Past Drug Use History: Marijuana - Past Family History Mother Family Medical History: Hyperlipidemia Father Family Medical History: Diabetes Mellitus Medications and Allergies Home Medications Medication Instructions Recorded Confirmed Type Empagliflozin [Jardiance] 25 mg PO DAILY 09/01/23 11/17/23 History Lisinopril-Hctz 20-12.5 mg 1 tab PO DAILY 09/01/23 11/17/23 History [Zestoretic 20-12.5] Omeprazole [PriLOSEC] 20 mg PO BID 09/01/23 11/17/23 History Allergies Allergy/AdvReac Type Severity Reaction Status Date / Time metformin AdvReac Nausea & Verified 11/17/23 19:48 Vomiting & Diarrhea Htiowxh-GAF-EoS Reductase AdvReac liver Verified 11/17/23 19:48 Inhibitor problems [Pyayjut-Sfj-Ncd Reductase Inhibitor] Physical Exam Vitals: Vital Signs Temp Pulse Pulse Resp BP BP BP 11/18/23 07:16 97.7 F 82 16 114/76 11/18/23 05:45 97.6 F 90 16 113/74 11/18/23 05:10 97.8 F 78 16 126/83 11/17/23 22:08 96 18 100/69 11/17/23 19:10 98.2 F 109 H 18 154/93 Pulse Ox 11/18/23 07:16 97 11/18/23 05:45 99 11/18/23 05:10 99 11/17/23 22:08 96 11/17/23 19:10 97 Intake and Output 11/17/23 11/18/23 11/18/23 22:59 06:59 14:59 Intake Total 590 Balance 590 Intake: Oral 590 Other: Voiding Method Toilet Toilet Urinal Urinal Weight 92.533 kg 92.533 kg Results CBC & Chem 7: 11/18/23 06:41 11/18/23 06:41 Labs: Abnormal Lab Results - Last 24 Hours (Table) 11/17/23 11/17/23 11/17/23 Range/Units 19:27 19:27 19:27 RBC 4.10 L (4.30-5.90) m/uL Hgb 11.2 L (13.0-17.5) gm/dL Hct 33.9 L (39.0-53.0) % MCH (27.0-32.0) pg MCHC (32.0-37.0) g/dL RDW (11.5-14.5) % MPV (9.5-12.2) FL Sodium 136 L (137-145) mmol/L Glucose 310 H (74-99) mg/dL POC Glucose (mg/dL) (70-110) mg/dL Plasma Lactic Acid Mike 2.1 H* (0.7-2.0) mmol/L AST (14-35) U/L Alkaline Phosphatase 136 H (38-126) U/L C-Reactive Protein 6.1 H (<1.0) mg/dL Total Protein 6.1 L (6.3-8.2) g/dL Albumin 3.3 L (3.5-5.0) g/dL Albumin/Globulin Ratio (1.60-3.17) Ratio 11/18/23 11/18/23 11/18/23 Range/Units 06:41 06:41 07:19 RBC 4.17 L (4.30-5.90) m/uL Hgb 11.0 L (13.0-17.5) gm/dL Hct 34.7 L (39.0-53.0) % MCH 26.4 L (27.0-32.0) pg MCHC 31.7 L (32.0-37.0) g/dL RDW 15.1 H (11.5-14.5) % MPV 9.1 L (9.5-12.2) FL Sodium (137-145) mmol/L Glucose 182 H (74-99) mg/dL POC Glucose (mg/dL) 181 H (70-110) mg/dL Plasma Lactic Acid Mike (0.7-2.0) mmol/L AST 51 H (14-35) U/L Alkaline Phosphatase 160 H (38-126) U/L C-Reactive Protein (<1.0) mg/dL Total Protein 5.9 L (6.3-8.2) g/dL Albumin 3.3 L (3.5-5.0) g/dL Albumin/Globulin Ratio 1.27 L (1.60-3.17) Ratio Assessment and Plan (1) Type 2 diabetes mellitus with foot ulcer Current Visit: Yes Status: Acute Code(s): E11.621 - TYPE 2 DIABETES MELLITUS WITH FOOT ULCER; L97.509 - NON-PRESSURE CHRONIC ULCER OTH PRT UNSP FOOT W UNSP SEVERITY SNOMED Code(s): 8921295084013 (2) Non-pressure chronic ulcer of other part of right foot with fat layer exposed Current Visit: No Status: Acute Code(s): L97.512 - NON-PRS CHRONIC ULCER OTH PRT RIGHT FOOT W FAT LAYER EXPOSED SNOMED Code(s): 05547318773564281 (3) Non-pressure chronic ulcer of other part of right foot with necrosis of bone Current Visit: No Status: Acute Code(s): L97.514 - NON-PRS CHRONIC ULCER OTH PRT RIGHT FOOT W NECROSIS OF BONE SNOMED Code(s): 88644509773686686 (4) Osteomyelitis Current Visit: No Status: Acute Code(s): M86.9 - OSTEOMYELITIS, UNSPECIFIED SNOMED Code(s): 06146702
--- NOTE | 2023-11-18 11:57 | P.PN ---
Subjective Progress Note Date: 11/18/23 Subjective: Patient seen and examined at the bedside. Patient complaining of exertional mild shortness of breath x 4 days associated with mild productive cough. No chest pain. Not complain of pain in lower extremities. All Systems reviewed and pertinent positives and negatives noted in HPI, all other symptoms are negative Objective: Vital signs reviewed. General: non toxic, no distress, appears at stated age, normal weight Derm: no unusual rashes/lesions, warm Head: atraumatic, normocephalic, symmetric Eyes: EOMI, no lid lag, anicteric sclera, pupils equal round reactive to light ENT: Nose and ears atraumatic Neck: No cervical lymphadenopathy, trachea midline, supple Mouth: no lip lesion, mucus membranes moist Cardiovascular: S1S2 reg, no murmur, positive dorsalis pedis pulse bilateral, no edema Lungs: CTA bilateral, no rhonchi, no rales, no accessory muscle use Abdominal: soft, nontender to palpation, no guarding Ext: muscle strength 5 out of 5 in all 4 extremities grossly, no gross muscle atrophy, no contractures, right foot bandaged. Neuro: CN II-XI grossly intact, decreased bilateral sensation grossly Psych: Alert, oriented, appropriate affect Data reviewed today: Labs: WBC 6.29, hemoglobin 11.0, MCV 83.2, sodium 139, potassium 4.2, BUN 13.5, creatinine 1.0, glucose 182, alkaline phosphatase 160, AST 51, ALT 25, albumin 3.2 Images: Chest x-ray shows no acute cardiopulmonary process Right foot x-ray shows soft tissue swelling with soft tissue ulceration at the dorsum of the right foot. Underlying osteomyelitis at the distal right metatarsal as well as the base of the right proximal phalanx. Assessment and Plan: 58-year-old male with a past medical history of type 2 diabetes, hypertension, GERD presents to the ED with worsening cellulitis. #RLE cellulitis secondary to chronic nonhealing foot ulcer in setting of bilateral venous stasis dermatitis #right foot Osteomyelitis ID consulted Patient is currently vancomycin 1500 mg IVPB every 12 hours and cefepime 2 g IVPB every 8 hours Start Flagyl 500 mg p.o. 3 times daily Pain management: Acetaminophen 650 PO q6hr PRN, Motrin 400 mg PO q6hr PRN, morphine sulfate 4 mg IV q4hr PRN IV normal saline 20 cc/h Right foot x-ray: Soft tissue swelling with soft tissue ulceration at the dorsum of the right foot. Underlying osteomyelitis at the distal right metatarsal as well as the base of the right proximal phalanx. Obtain blood cultures; results pending Wound care consulted #Diastolic CHF, not in acute exacerbation #Dyspnea EF on echocardiogram on 07/29/23 50-55% Chest x-ray shows no acute cardiopulmonary process #Type 2 diabetes, complicated with bilateral foot diabetic neuropathy Holding home oral diabetic medication Placed on insulin SQ sliding scale Monitor glucose levels #Normocytic anemia Hgb 11.2 (baseline Hgb ~12), MCV 82.8 Patient denies active bleeding Monitor CBC #Hypertension borderline low BP of 100/69 at the time of admission Current blood pressure 114/76: Continue to hold lisinopril/HCTZ 2012.51 each PO daily #GERD Continue management Protonix 40 mg PO BID Lactic acidosis, resolved DVT prophylaxis: Lovenox 40 SQ daily F: IV NS @ 20 cc/hr E: Replete electrolytes as needed N: Consistent carbohydrate diet A: Fall precautions, consult PT The patient is admitted with an anticipated rater than 2 midnight stay for eval uation of cellulitis secondary to chronic lower extremity nonhealing ulcer. CODE STATUS: Full Discussed with: Patient Anticipated discharge place: Unknown I have seen and evaluated the patient today. Discussed with the resident and agree with the residents finding and plan as documented in the resident's note. Objective - Vital Signs Vital signs: Vital Signs Temp 97.7 F 11/18/23 07:16 Pulse 82 11/18/23 07:16 Resp 16 11/18/23 07:16 BP 114/76 11/18/23 07:16 Pulse Ox 97 11/18/23 07:16 FiO2 Intake & Output 11/17/23 11/18/23 11/18/23 18:59 06:59 18:59 Intake Total 590 Balance 590 Weight 92.533 kg Intake: Oral 590 Other: Voiding Method Toilet Toilet Urinal Urinal - Labs CBC & Chem 7: 11/18/23 06:41 11/18/23 06:41 Labs: Abnormal Lab Results - Last 24 Hours (Table) 11/17/23 11/17/23 11/17/23 Range/Units 19:27 19:27 19:27 RBC 4.10 L (4.30-5.90) m/uL Hgb 11.2 L (13.0-17.5) gm/dL Hct 33.9 L (39.0-53.0) % MCH (27.0-32.0) pg MCHC (32.0-37.0) g/dL RDW (11.5-14.5) % MPV (9.5-12.2) FL Sodium 136 L (137-145) mmol/L Glucose 310 H (74-99) mg/dL POC Glucose (mg/dL) (70-110) mg/dL Plasma Lactic Acid Mike 2.1 H* (0.7-2.0) mmol/L AST (14-35) U/L Alkaline Phosphatase 136 H (38-126) U/L C-Reactive Protein 6.1 H (<1.0) mg/dL Total Protein 6.1 L (6.3-8.2) g/dL Albumin 3.3 L (3.5-5.0) g/dL Albumin/Globulin Ratio (1.60-3.17) Ratio 11/18/23 11/18/23 11/18/23 Range/Units 06:41 06:41 07:19 RBC 4.17 L (4.30-5.90) m/uL Hgb 11.0 L (13.0-17.5) gm/dL Hct 34.7 L (39.0-53.0) % MCH 26.4 L (27.0-32.0) pg MCHC 31.7 L (32.0-37.0) g/dL RDW 15.1 H (11.5-14.5) % MPV 9.1 L (9.5-12.2) FL Sodium (137-145) mmol/L Glucose 182 H (74-99) mg/dL POC Glucose (mg/dL) 181 H (70-110) mg/dL Plasma Lactic Acid Mike (0.7-2.0) mmol/L AST 51 H (14-35) U/L Alkaline Phosphatase 160 H (38-126) U/L C-Reactive Protein (<1.0) mg/dL Total Protein 5.9 L (6.3-8.2) g/dL Albumin 3.3 L (3.5-5.0) g/dL Albumin/Globulin Ratio 1.27 L (1.60-3.17) Ratio
[2023-11-18 12:12] LABS: Glucose,Whole Blood 161 mg/dL (70-110)
[2023-11-18] MEDS: metroNIDAZOLE 500 MG TAB PO SCH (16:08)
[2023-11-18 17:14] LABS: Glucose,Whole Blood 214 mg/dL (70-110)
[2023-11-18] MEDS: IBUPROFEN 400 MG TAB PO PRN (17:57)
[2023-11-18 20:20] LABS: Glucose,Whole Blood 280 mg/dL (70-110)
--- NOTE | 2023-11-18 22:28 | P.CONS ---
History of Present Illness - Reason for Consult Consult date: 11/18/23 Acute on chronic lower extremity wound Requesting physician: Rashmi Izquierdo - Chief Complaint Right foot wound worsening x days - History of Present Illness Patient is a 58-year-old male with a past medical history significant for diabetes mellitus hypertension reflux heart failure PE patient did have a history of right diabetic foot ulcer and osteomyelitis last culture has been positive for Enterobacter and MRSA and the patient has completed a course of IV antibiotic therapy patient has been following up with Dr. Dorman at [facility] wound [facility] [address] apparently the patient was noticed to have worsening of the wound on last Thursday on his wound care visit and he was advised admission to the hospital however the patient refused as he has to take care of some cats and dogs patient now presenting to [facility] ER last night concerning for worsening l ower extremity edema and erythema patient complaining of feeling nauseous however he did not throw up and did have some chills, patient did not have any fever on presentation to the hospital or subsequently patient complaining of pain to the right foot to be sharp about 6-7 out of 10 without any additional associated swelling and recently had some foul-smelling drainage on arrival to the ER the patient was afebrile had no fever have been called subsequently patient was not tachycardic hypotensive or hypoxic he did have white count of 5.8 repeat is 6.29 kidney function normal electrolytes normal liver enzymes normal patient did have x-ray of the foot soft tissue swelling with soft tissue ulceration dorsum of the right foot bony abnormality about the osteotomy site distal right metatarsal could reflect osteomyelitis no cultures were done patient was started on gentamicin infectious disease was consulted for further management of antibiotic therapy Review of Systems Positive point and negatives has been mentioned in the HPI, complete review of systems was performed and all other systems are negative Past Medical History Past Medical History: Heart Failure, Diabetes Mellitus, GERD/Reflux, Hypertension, Pulmonary Embolus (PE) Additional Past Medical History / Comment(s): occ. pain with swallowing at times, hiatal hernia, dry skin, hx kidney stones, non healing foot ulcers History of Any Multi-Drug Resistant Organisms: MRSA Year Discovered:: 08/02/23 MDRO Source:: Right Foot Past Surgical History: Orthopedic Surgery Additional Past Surgical History / Comment(s): cystoscopy/stent in urethra, olga carpal tunnel, trigger finger left thumb, rt thumb surgery, shoulder surgery Past Anesthesia/Blood Transfusion Reactions: No Reported Reaction Additional Past Anesthesia/Blood Transfusion Reaction / Comm: dizziness Past Psychological History: No Psychological Hx Reported Smoking Status: Former smoker Past Alcohol Use History: None Reported Additional Past Alcohol Use History / Comment(s): smoked for 30 yrs Past Drug Use History: Marijuana - Past Family History Mother Family Medical History: Hyperlipidemia Father Family Medical History: Diabetes Mellitus Medications and Allergies Home Medications Medication Instructions Recorded Confirmed Type Empagliflozin [Jardiance] 25 mg PO DAILY 09/01/23 11/17/23 History Lisinopril-Hctz 20-12.5 mg 1 tab PO DAILY 09/01/23 11/17/23 History [Zestoretic 20-12.5] Omeprazole [PriLOSEC] 20 mg PO BID 09/01/23 11/17/23 History Allergies Allergy/AdvReac Type Severity Reaction Status Date / Time metformin AdvReac Nausea & Verified 11/17/23 19:48 Vomiting & Diarrhea Goixzbg-FHN-VcE Reductase AdvReac liver Verified 11/17/23 19:48 Inhibitor problems [Ueqddij-Fqm-Vkh Reductase Inhibitor] Physical Exam Vitals: Vital Signs Temp Pulse Pulse Resp BP BP BP 11/18/23 07:16 97.7 F 82 16 114/76 11/18/23 05:45 97.6 F 90 16 113/74 11/18/23 05:10 97.8 F 78 16 126/83 11/17/23 22:08 96 18 100/69 11/17/23 19:10 98.2 F 109 H 18 154/93 Pulse Ox 11/18/23 07:16 97 11/18/23 05:45 99 11/18/23 05:10 99 11/17/23 22:08 96 11/17/23 19:10 97 Intake and Output 11/17/23 11/18/23 11/18/23 22:59 06:59 14:59 Intake Total 590 Balance 590 Intake: Oral 590 Other: Voiding Method Toilet Toilet Urinal Urinal Weight 92.533 kg 92.533 kg GENERAL DESCRIPTION: Middle-aged male lying in bed, no distress. No tachypnea or accessory muscle of respiration use. HEENT: Shows Pallor , no scleral icterus. Oral mucous membrane is dry. No pharyngeal erythema or thrush NECK: Trachea central, no thyromegaly. LUNGS: Unlabored breathing. Clear to auscultation anteriorly. No wheeze or crackle. HEART: S1, S2, regular rate and rhythm. No loud murmur ABDOMEN: Soft, no tenderness , guarding or rigidity, no organomegaly EXTREMITIES: Right foot wound on the plantar aspect with maceration wound is deep probing down to the wound culture has been obtained also have a wound on the dorsum aspect of the right foot with some slough tissue did have extensive swelling redness to the right foot and leg area SKIN: No rash, no masses palpable. NEUROLOGICAL: The patient is awake, alert, oriented x3, mood and affect normal. Results CBC & Chem 7: 11/18/23 06:41 11/18/23 06:41 Labs: Abnormal Lab Results - Last 24 Hours (Table) 11/17/23 11/17/23 11/17/23 Range/Units 19:27 19:27 19:27 RBC 4.10 L (4.30-5.90) m/uL Hgb 11.2 L (13.0-17.5) gm/dL Hct 33.9 L (39.0-53.0) % MCH (27.0-32.0) pg MCHC (32.0-37.0) g/dL RDW (11.5-14.5) % MPV (9.5-12.2) FL Sodium 136 L (137-145) mmol/L Glucose 310 H (74-99) mg/dL POC Glucose (mg/dL) (70-110) mg/dL Plasma Lactic Acid Mike 2.1 H* (0.7-2.0) mmol/L AST (14-35) U/L Alkaline Phosphatase 136 H (38-126) U/L C-Reactive Protein 6.1 H (<1.0) mg/dL Total Protein 6.1 L (6.3-8.2) g/dL Albumin 3.3 L (3.5-5.0) g/dL Albumin/Globulin Ratio (1.60-3.17) Ratio 11/18/23 11/18/23 11/18/23 Range/Units 06:41 06:41 07:19 RBC 4.17 L (4.30-5.90) m/uL Hgb 11.0 L (13.0-17.5) gm/dL Hct 34.7 L (39.0-53.0) % MCH 26.4 L (27.0-32.0) pg MCHC 31.7 L (32.0-37.0) g/dL RDW 15.1 H (11.5-14.5) % MPV 9.1 L (9.5-12.2) FL Sodium (137-145) mmol/L Glucose 182 H (74-99) mg/dL POC Glucose (mg/dL) 181 H (70-110) mg/dL Plasma Lactic Acid Mike (0.7-2.0) mmol/L AST 51 H (14-35) U/L Alkaline Phosphatase 160 H (38-126) U/L C-Reactive Protein (<1.0) mg/dL Total Protein 5.9 L (6.3-8.2) g/dL Albumin 3.3 L (3.5-5.0) g/dL Albumin/Globulin Ratio 1.27 L (1.60-3.17) Ratio Assessment and Plan (1) Type 2 diabetes mellitus with foot ulcer Current Visit: Yes Status: Acute Code(s): E11.621 - TYPE 2 DIABETES MELLITUS WITH FOOT ULCER; L97.509 - NON-PRESSURE CHRONIC ULCER OTH PRT UNSP FOOT W UNSP SEVERITY SNOMED Code(s): 1704019881781 (2) Abscess Current Visit: No Status: Acute Code(s): L02.91 - CUTANEOUS ABSCESS, UNSPECIFIED SNOMED Code(s): 379000798 (3) Osteomyelitis Current Visit: No Status: Acute Code(s): M86.9 - OSTEOMYELITIS, UNSPECIFIED SNOMED Code(s): 47898930 Plan: 1patient with right diabetic foot ulcer with surrounding cellulitis the patient also recently and was probing down to the wound at the time of obtaining wound culture and will need to cover for polymicrobial marion associated with diabetic foot infection 2-discontinue gentamicin 3-patient started on combination of cefepime vancomycin and Flagyl pending culture completion 4-we will check inflammatory markers We will follow on clinical condition and cultures to further adjust medication if needed Thank you for this consultation we will follow the patient along with you Dictation was produced using [employer] dictation software. please excuse any grammatical, word or spelling errors. Time with Patient: Greater than 30
[2023-11-19 07:07] LABS: Glucose,Whole Blood 195 mg/dL (70-110)
[2023-11-19 11:53] LABS: Glucose,Whole Blood 197 mg/dL (70-110)
[2023-11-19 11:53] LABS: Basophils % (A) 1 %; Eosinophils # (A) 0.2 k/uL (0-0.7); Eosinophils % (A) 4 %; HCT 38.5 % (39.0-53.0); HGB 11.8 gm/dL (13.0-17.5); Hypochromasia Marked; Lymphocytes # (A) 0.8 k/uL (1.0-4.8); Lymphocytes % (A) 16 %; MCH 26.7 pg (25.0-35.0); MCHC 30.7 g/dL (31.0-37.0); MCV 86.9 fL (80.0-100.0); Mean Platelet Volume 6.9; Monocytes # (A) 0.3 k/uL (0-1.0); Monocytes % (A) 6 %; Neutrophils # (A) 3.5 k/uL (1.3-7.7); Neutrophils % (A) 72 %; Platelet Count 405 k/uL (150-450); RBC 4.43 m/uL (4.30-5.90); RDW 15.6 % (11.5-15.5); WBC 4.8 k/uL (3.8-10.6)
[2023-11-19 12:04] LABS: African American GFR (CKD) >90 (>60 ml/min/1.73 sqM); Anion Gap 5 mmol/L; Blood Urea Nitrogen 15 mg/dL (9-20); Calcium 8.5 mg/dL (8.4-10.2); Carbon Dioxide 24 mmol/L (22-30); Chloride 107 mmol/L (98-107); Glucose 195 mg/dL (74-99); Non-African American GFR(CKD) >90 (>60 ml/min/1.73 sqM); Potassium 4.9 mmol/L (3.5-5.1); Sodium 136 mmol/L (137-145)
--- NOTE | 2023-11-19 14:18 | P.PN ---
Subjective Progress Note Date: 11/19/23 Principal diagnosis: Reason for follow-up is right diabetic foot infection/osteomyelitis Patient is a 58-year-old male with a past medical history significant for diabetes mellitus hypertension reflux heart failure PE patient did have a history of right diabetic foot ulcer and osteomyelitis, now presented to hospital with worsening right foot wound concerning for possible osteomyelitis. On today's evaluation that is 11/19/2023,the patient denies any fever or any ch ills, patient is breathing comfortably on room air, the patient denies chest pain shortness of breath and no significant cough, patient denies abdominal pain, no nausea vomiting or diarrhea. Pain to the right foot is currently controlled with the pain medication. Patient white count is 4.8 ESR is only 23 CRP of 4.20 cultures are pending Objective - Vital Signs Vital signs: Vital Signs Temp 97.5 F L 11/19/23 07:34 Pulse 68 11/19/23 07:34 Resp 17 11/19/23 07:34 BP 123/88 11/19/23 07:34 Pulse Ox 96 11/19/23 07:34 FiO2 Intake & Output 11/18/23 11/19/23 11/19/23 18:59 06:59 18:59 Intake Total 780 590 Balance 780 590 Intake: Oral 780 590 Other: Voiding Method Toilet Toilet Urinal Urinal # Voids 3 - Exam GENERAL DESCRIPTION: Middle-age male lying in bed in no distress RESPIRATORY SYSTEM: Unlabored breathing , decreased breath sounds at bases HEART: S1 S2 regular rate and rhythm , ABDOMEN: Soft , no tenderness EXTREMITIES: Right foot is currently dressed - Labs CBC & Chem 7: 11/19/23 11:06 11/19/23 11:12 Labs: Abnormal Lab Results - Last 24 Hours (Table) 11/18/23 11/18/23 11/18/23 Range/Units 06:41 06:41 12:12 RBC 4.17 L (4.40-5.60) X 10*6/uL Hgb 11.0 L (13.0-17.0) g/dL Hct 34.7 L (39.6-50.0) % MCH 26.4 L (27.0-32.0) pg MCHC 31.7 L (32.0-37.0) g/dL RDW 15.1 H (11.5-14.5) % MPV 9.1 L (9.5-12.2) FL ESR (0-20) mm/Hr Glucose 182 H (70-110) mg/dL POC Glucose (mg/dL) 161 H (70-110) mg/dL AST 51 H (14-35) U/L Alkaline Phosphatase 160 H (41-126) U/L C-Reactive Protein (0.00-0.80) mg/dL Total Protein 5.9 L (6.2-8.2) g/dL Albumin 3.3 L (3.8-4.9) g/dL Albumin/Globulin Ratio 1.27 L (1.60-3.17) Ratio 11/18/23 11/18/23 11/19/23 Range/Units 17:13 20:18 03:07 RBC (4.40-5.60) X 10*6/uL Hgb (13.0-17.0) g/dL Hct (39.6-50.0) % MCH (27.0-32.0) pg MCHC (32.0-37.0) g/dL RDW (11.5-14.5) % MPV (9.5-12.2) FL ESR 23 H (0-20) mm/Hr Glucose (70-110) mg/dL POC Glucose (mg/dL) 214 H 280 H (70-110) mg/dL AST (14-35) U/L Alkaline Phosphatase (41-126) U/L C-Reactive Protein (0.00-0.80) mg/dL Total Protein (6.2-8.2) g/dL Albumin (3.8-4.9) g/dL Albumin/Globulin Ratio (1.60-3.17) Ratio 11/19/23 11/19/23 Range/Units 03:07 07:02 RBC (4.40-5.60) X 10*6/uL Hgb (13.0-17.0) g/dL Hct (39.6-50.0) % MCH (27.0-32.0) pg MCHC (32.0-37.0) g/dL RDW (11.5-14.5) % MPV (9.5-12.2) FL ESR (0-20) mm/Hr Glucose (70-110) mg/dL POC Glucose (mg/dL) 195 H (70-110) mg/dL AST (14-35) U/L Alkaline Phosphatase (41-126) U/L C-Reactive Protein 4.20 H (0.00-0.80) mg/dL Total Protein (6.2-8.2) g/dL Albumin (3.8-4.9) g/dL Albumin/Globulin Ratio (1.60-3.17) Ratio Microbiology - Last 24 Hours (Table) 11/18/23 11:30 Gram Stain - Preliminary Foot - Right Assessment and Plan (1) Type 2 diabetes mellitus with foot ulcer Current Visit: Yes Status: Acute Code(s): E11.621 - TYPE 2 DIABETES MELLITUS WITH FOOT ULCER; L97.509 - NON-PRESSURE CHRONIC ULCER OTH PRT UNSP FOOT W UNSP SEVERITY SNOMED Code(s): 2366279757836 (2) Abscess Current Visit: No Status: Acute Code(s): L02.91 - CUTANEOUS ABSCESS, UNSPECIFIED SNOMED Code(s): 842604050 (3) Osteomyelitis Current Visit: No Status: Acute Code(s): M86.9 - OSTEOMYELITIS, UNSPECIFIED SNOMED Code(s): 24519979 Plan: 1patient with right diabetic foot ulcer with surrounding cellulitis the patient also recently and was probing down to the wound at the time of obtaining wound culture and will need to cover for polymicrobial marion associated with diabetic foot infection 2--patient to continue with cefepime vancomycin and Flagyl pending culture completion, MRI discussed with the resident physician to rule out osteomyelitis or any abscess that may need surgical drainage Dictation was produced using [employer] dictation software. please excuse any grammatical, word or spelling errors. Time with Patient: Less than 30
--- NOTE | 2023-11-19 15:33 | P.PN ---
Subjective Progress Note Date: 11/19/23 Subjective: Patient seen and examined at the bedside. Patient complaining of mild RLE pain. No chest pain, SOB. All Systems reviewed and pertinent positives and negatives noted in HPI, all other symptoms are negative Objective: Vital signs reviewed. General: non toxic, no distress, appears at stated age, normal weight Derm: no unusual rashes/lesions, warm Head: atraumatic, normocephalic, symmetric Eyes: EOMI, no lid lag, anicteric sclera, pupils equal round reactive to light ENT: Nose and ears atraumatic Neck: No cervical lymphadenopathy, trachea midline, supple Mouth: no lip lesion, mucus membranes moist Cardiovascular: S1S2 reg, no murmur, positive dorsalis pedis pulse bilateral, no edema Lungs: CTA bilateral, no rhonchi, no rales, no accessory muscle use Abdominal: soft, nontender to palpation, no guarding Ext: muscle strength 5 out of 5 in all 4 extremities grossly, no gross muscle atrophy, no contractures, right foot bandaged. Neuro: CN II-XI grossly intact, decreased bilateral sensation grossly Psych: Alert, oriented, appropriate affect Data reviewed today: Labs: WBC 4.8, hemoglobin 11.8, platelet count 405, ESR 23, sodium 136, potassium 4.9, BUN 15, creatinine 0.85, glucose 195 Wound Gram stain preliminary report shows many gram-positive cocci, moderate gram-positive bacilli and few gram negative bacilli Wound culture pending Blood culture pending Images: No imaging today Assessment and Plan: 58-year-old male with a past medical history of type 2 diabetes, hypertension, GERD presents to the ED with worsening cellulitis. #RLE cellulitis secondary to chronic nonhealing foot ulcer in setting of bilateral venous stasis dermatitis #right foot Osteomyelitis ID consulted Patient is currently vancomycin 1500 mg IVPB every 12 hours and cefepime 2 g IVPB every 8 hours Start Flagyl 500 mg p.o. 3 times daily Pain management: Acetaminophen 650 PO q6hr PRN, Motrin 400 mg PO q6hr PRN, morphine sulfate 4 mg IV q4hr PRN, Dilaudid 1 mg IVP every 4 hours as needed IV normal saline 20 cc/h Right foot x-ray: Soft tissue swelling with soft tissue ulceration at the dorsum of the right foot. Underlying osteomyelitis at the distal right metatarsal as well as the base of the right proximal phalanx. Obtain blood cultures Wound care consulted Ordered right foot MRI with contrast #Diastolic CHF, not in acute exacerbation #Dyspnea EF on echocardiogram on 07/29/23 50-55% Chest x-ray shows no acute cardiopulmonary process #Type 2 diabetes, complicated with bilateral foot diabetic neuropathy Holding home oral diabetic medication Placed on insulin SQ sliding scale Monitor glucose levels #Normocytic anemia Hgb 11.2 (baseline Hgb ~12), MCV 82.8 Patient denies active bleeding Monitor CBC #Hypertension borderline low BP of 100/69 at the time of admission Current blood pressure 114/76: Continue to hold lisinopril/HCTZ 2012.51 each PO daily #GERD Continue management Protonix 40 mg PO BID Lactic acidosis, resolved DVT prophylaxis: Lovenox 40 SQ daily F: IV NS @ 20 cc/hr E: Replete electrolytes as needed N: Consistent carbohydrate diet A: Fall precautions, consult PT The patient is admitted with an anticipated rater than 2 midnight stay for evaluation of cellulitis secondary to chronic lower extremity nonhealing ulcer. CODE STATUS: Full Discussed with: Patient Anticipated discharge place: Unknown I have seen and evaluated the patient today. Discussed with the resident and agree with the residents finding and plan as documented in the resident's note. Objective - Vital Signs Vital signs: Vital Signs Temp 97.5 F L 11/19/23 07:34 Pulse 68 11/19/23 07:34 Resp 17 11/19/23 07:34 BP 123/88 11/19/23 07:34 Pulse Ox 96 11/19/23 07:34 FiO2 Intake & Output 11/18/23 11/19/23 11/19/23 18:59 06:59 18:59 Intake Total 780 590 Balance 780 590 Intake: Oral 780 590 Other: Voiding Method Toilet Toilet Urinal Urinal # Voids 3 - Labs CBC & Chem 7: 11/19/23 11:06 11/19/23 11:12 Labs: Abnormal Lab Results - Last 24 Hours (Table) 11/18/23 11/18/23 11/18/23 Range/Units 12:12 17:13 20:18 ESR (0-20) mm/Hr POC Glucose (mg/dL) 161 H 214 H 280 H (70-110) mg/dL C-Reactive Protein (0.00-0.80) mg/dL 0911/19/23 11/19/23 Range/Units 03:07 03:07 07:02 ESR 23 H (0-20) mm/Hr POC Glucose (mg/dL) 195 H (70-110) mg/dL C-Reactive Protein 4.20 H (0.00-0.80) mg/dL Microbiology - Last 24 Hours (Table) 11/18/23 11:30 Gram Stain - Preliminary Foot - Right Wound Culture - Preliminary
[2023-11-19 17:15] LABS: Glucose,Whole Blood 122 mg/dL (70-110)
[2023-11-19] MEDS: HYDROmorphone 1 MG/ML 1 ML SYRINGE IVP PRN (18:23)
[2023-11-19 19:42] LABS: Glucose,Whole Blood 151 mg/dL (70-110)
[2023-11-19] MEDS: CALAMINE/ZINC OXIDE LOTION 177 ML BTL TOPICAL PRN (22:56)
[2023-11-20 04:33] LABS: Basophils # (A) 0.1 k/uL (0-0.2); Basophils % (A) 1 %; Eosinophils # (A) 0.2 k/uL (0-0.7); Eosinophils % (A) 5 %; HCT 38.6 % (39.0-53.0); HGB 11.7 gm/dL (13.0-17.5); Hypochromasia Marked; Lymphocytes # (A) 0.9 k/uL (1.0-4.8); Lymphocytes % (A) 17 %; MCH 26.4 pg (25.0-35.0); MCHC 30.4 g/dL (31.0-37.0); MCV 86.7 fL (80.0-100.0); Mean Platelet Volume 6.9; Monocytes # (A) 0.4 k/uL (0-1.0); Monocytes % (A) 7 %; Neutrophils # (A) 3.6 k/uL (1.3-7.7); Neutrophils % (A) 68 %; Platelet Count 447 k/uL (150-450); RBC 4.45 m/uL (4.30-5.90); RDW 15.9 % (11.5-15.5); WBC 5.2 k/uL (3.8-10.6)
[2023-11-20 04:42] LABS: African American GFR (CKD) >90 (>60 ml/min/1.73 sqM); Anion Gap 6 mmol/L; Blood Urea Nitrogen 12 mg/dL (9-20); Calcium 8.6 mg/dL (8.4-10.2); Carbon Dioxide 25 mmol/L (22-30); Chloride 107 mmol/L (98-107); Glucose 178 mg/dL (74-99); Non-African American GFR(CKD) 83 (>60 ml/min/1.73 sqM); Potassium 4.6 mmol/L (3.5-5.1); Sodium 138 mmol/L (137-145)
[2023-11-20 07:37] LABS: African American GFR (CKD) >90 (>60 ml/min/1.73 sqM); Non-African American GFR(CKD) 85 (>60 ml/min/1.73 sqM)
[2023-11-20 07:38] LABS: Glucose,Whole Blood 140 mg/dL (70-110)
[2023-11-20] MEDS: VANCOMYCIN TROUGH DUE 1 EACH MISC MISCELLANE ONE (07:46)
--- NOTE | 2023-11-20 12:09 | P.PN ---
Subjective Progress Note Date: 11/20/23 Subjective: Patient seen and examined at the bedside. Patient complaining of mild RLE pain. Itchiness of the back overnight despite using calamine lotion. No chest pain, SOB. All Systems reviewed and pertinent positives and negatives noted in HPI, all other symptoms are negative Objective: Vital signs reviewed. General: non toxic, no distress, appears at stated age, normal weight Derm: Fibrotic skin thickening and hyperpigmentation of the bilateral LE. Head: atraumatic, normocephalic, symmetric Eyes: EOMI, no lid lag, anicteric sclera, pupils equal round reactive to light ENT: Nose and ears atraumatic Neck: No cervical lymphadenopathy, trachea midline, supple Mouth: no lip lesion, mucus membranes moist Cardiovascular: S1S2 reg, no murmur, positive dorsalis pedis pulse bilateral, no edema Lungs: CTA bilateral, no rhonchi, no rales, no accessory muscle use Abdominal: soft, nontender to palpation, no guarding Ext: muscle strength 5 out of 5 in all 4 extremities grossly, no gross muscle atrophy, no contractures, right foot bandaged. Left plantar foot has few non purulent shallow skin ulcerations. Neuro: CN II-XI grossly intact, decreased bilateral sensation grossly Psych: Alert, oriented, appropriate affect Data reviewed today: Labs: WBC 5.2, hemoglobin 11.7, platelet count 447, sodium 138, potassium 4.6, creatinine 0.9, glucose 178 Wound Gram stain preliminary report shows many gram-positive cocci, moderate gram-positive bacilli and few gram negative bacilli Wound culture pending Blood culture pending Images: MRI of the right foot is pending Assessment and Plan: 58-year-old male with a past medical history of type 2 diabetes, hypertension, GERD presents to the ED with worsening cellulitis. #RLE cellulitis secondary to chronic nonhealing foot ulcer in setting of bilateral venous stasis dermatitis #right foot Osteomyelitis ID consulted Patient is currently vancomycin 1500 mg IVPB every 12 hours and cefepime 2 g IVPB every 8 hours Start Flagyl 500 mg p.o. 3 times daily Pain management: Acetaminophen 650 PO q6hr PRN, Motrin 400 mg PO q6hr PRN, morphine sulfate 4 mg IV q4hr PRN, Dilaudid 1 mg IVP every 4 hours as needed IV normal saline 20 cc/h Right foot x-ray: Soft tissue swelling with soft tissue ulceration at the dorsum of the right foot. Underlying osteomyelitis at the distal right metatarsal as well as the base of the right proximal phalanx. Obtain blood cultures Wound care consulted Ordered right foot MRI with contrast; results pending #Diastolic CHF, not in acute exacerbation #Dyspnea EF on echocardiogram on 07/29/23 50-55% Chest x-ray shows no acute cardiopulmonary process #Type 2 diabetes, complicated with bilateral foot diabetic neuropathy Holding home oral diabetic medication Placed on insulin SQ sliding scale Monitor glucose levels #Normocytic anemia Hgb 11.7 (baseline Hgb ~12), MCV 86 Patient denies active bleeding Monitor CBC #Hypertension borderline low BP of 100/69 at the time of admission Current blood pressure 114/76: Continue to hold lisinopril/HCTZ 2012.51 each PO daily #GERD Continue management Protonix 40 mg PO BID #Itchiness Benadryl 25mg po daily prn Lactic acidosis, resolved DVT prophylaxis: Lovenox 40 SQ daily F: IV NS @ 20 cc/hr E: Replete electrolytes as needed N: Consistent carbohydrate diet A: Fall precautions, consult PT The patient is admitted with an anticipated rater than 2 midnight stay for evaluation of cellulitis secondary to chronic lower extremity nonhealing ulcer. CODE STATUS: Full Discussed with: Patient Anticipated discharge place: Unknown I have seen and evaluated the patient today. Discussed with the resident and agree with the residents finding and plan as documented in the resident's note. Objective - Vital Signs Vital signs: Vital Signs Temp 97.5 F L 11/20/23 07:53 Pulse 73 11/20/23 07:53 Resp 16 11/20/23 07:53 BP 133/89 11/20/23 07:53 Pulse Ox 96 11/20/23 07:53 FiO2 Intake & Output 11/19/23 11/20/23 11/20/23 18:59 06:59 18:59 Intake Total 1920 120 Balance 1920 120 Intake: Intake, IV Titration 840 Amount Cefepime 2 gm In Sodium 100 Chloride 0.9% 100 ml @ 25 mls/hr IVPB Q8HR [facility] Rx# :[id number] Sodium Chloride 0.9% 1, 240 000 ml @ 20 mls/hr IV . Q24H [facility] Rx#:[id number] Vancomycin 1,500 mg In 500 Sodium Chloride 0.9% 500 ml 500 ml @ 167 mls/hr IVPB Q12H [facility] Rx#: [id number] Oral 1080 120 Other: Voiding Method Toilet Toilet Toilet Urinal Urinal Urinal # Voids 2 - Labs CBC & Chem 7: 11/20/23 03:28 11/20/23 07:14 Labs: Abnormal Lab Results - Last 24 Hours (Table) 11/19/23 11/19/23 11/19/23 Range/Units 11:06 11:12 11:51 Hgb 11.8 L (13.0-17.5) gm/dL Hct 38.5 L (39.0-53.0) % MCHC 30.7 L (31.0-37.0) g/dL RDW 15.6 H (11.5-15.5) % Lymphocytes # 0.8 L (1.0-4.8) k/uL Sodium 136 L (137-145) mmol/L Glucose 195 H (74-99) mg/dL POC Glucose (mg/dL) 197 H (70-110) mg/dL 11/19/23 11/19/23 11/20/23 Range/Units 17:14 19:38 03:28 Hgb 11.7 L (13.0-17.5) gm/dL Hct 38.6 L (39.0-53.0) % MCHC 30.4 L (31.0-37.0) g/dL RDW 15.9 H (11.5-15.5) % Lymphocytes # 0.9 L (1.0-4.8) k/uL Sodium (137-145) mmol/L Glucose (74-99) mg/dL POC Glucose (mg/dL) 122 H 151 H (70-110) mg/dL 11/20/23 11/20/23 Range/Units 03:28 07:10 Hgb (13.0-17.5) gm/dL Hct (39.0-53.0) % MCHC (31.0-37.0) g/dL RDW (11.5-15.5) % Lymphocytes # (1.0-4.8) k/uL Sodium (137-145) mmol/L Glucose 178 H (74-99) mg/dL POC Glucose (mg/dL) 140 H (70-110) mg/dL Microbiology - Last 24 Hours (Table) 11/18/23 11:30 Gram Stain - Preliminary Foot - Right Wound Culture - Preliminary
[2023-11-20 12:29] LABS: Glucose,Whole Blood 179 mg/dL (70-110)
[2023-11-20] MEDS: oxyCODONE-APAP 5-325MG 1 EACH TAB PO STA (12:52)
[2023-11-20] MEDS: diphenhydrAMINE 25 MG CAP PO PRN (12:52)
--- NOTE | 2023-11-20 15:54 | P.PN ---
Subjective Progress Note Date: 11/20/23 Principal diagnosis: Reason for follow-up is right diabetic foot infection/osteomyelitis Patient is a 58-year-old male with a past medical history significant for diabetes mellitus hypertension reflux heart failure PE patient did have a history of right diabetic foot ulcer and osteomyelitis, now presented to hospital with worsening right foot wound concerning for possible osteomyelitis. On today's evaluation that is 11/20/2023,the patient remains to be afebrile, pa jose is on room air not requiring supplemental oxygen and denies any shortness of breath no chest pain or cough.Patient denies having any nausea or vomiting, no abdominal pain and no diarrhea, still complaining of pain with some controlled with the pain medication. Patient white count is 5.8, creatinine 1.01 Vanco trough is 19.7 cultures currently pending MRI is pending Objective - Vital Signs Vital signs: Vital Signs Temp 97.5 F L 11/20/23 07:53 Pulse 73 11/20/23 07:53 Resp 16 11/20/23 07:53 BP 133/89 11/20/23 07:53 Pulse Ox 96 11/20/23 07:53 FiO2 Intake & Output 11/19/23 11/20/23 11/20/23 18:59 06:59 18:59 Intake Total 1920 120 Balance 1920 120 Intake: Intake, IV Titration 840 Amount Cefepime 2 gm In Sodium 100 Chloride 0.9% 100 ml @ 25 mls/hr IVPB Q8HR FRANCY Rx# :[id number] Sodium Chloride 0.9% 1, 240 000 ml @ 20 mls/hr IV . Q24H FRANCY Rx#:[id number] Vancomycin 1,500 mg In 500 Sodium Chloride 0.9% 500 ml 500 ml @ 167 mls/hr IVPB Q12H FRANCY Rx#: [id number] Oral 1080 120 Other: Voiding Method Toilet Toilet Toilet Urinal Urinal Urinal # Voids 2 - Exam GENERAL DESCRIPTION: Middle-age male lying in bed in no distress RESPIRATORY SYSTEM: Unlabored breathing , decreased breath sounds at bases HEART: S1 S2 regular rate and rhythm , ABDOMEN: Soft , no tenderness EXTREMITIES: Right foot is currently dressed - Labs CBC & Chem 7: 11/20/23 03:28 11/20/23 07:14 Labs: Abnormal Lab Results - Last 24 Hours (Table) 11/19/23 11/19/23 11/19/23 Range/Units 11:06 11:12 11:51 Hgb 11.8 L (13.0-17.5) gm/dL Hct 38.5 L (39.0-53.0) % MCHC 30.7 L (31.0-37.0) g/dL RDW 15.6 H (11.5-15.5) % Lymphocytes # 0.8 L (1.0-4.8) k/uL Sodium 136 L (137-145) mmol/L Glucose 195 H (74-99) mg/dL POC Glucose (mg/dL) 197 H (70-110) mg/dL 11/19/23 11/19/23 11/20/23 Range/Units 17:14 19:38 03:28 Hgb 11.7 L (13.0-17.5) gm/dL Hct 38.6 L (39.0-53.0) % MCHC 30.4 L (31.0-37.0) g/dL RDW 15.9 H (11.5-15.5) % Lymphocytes # 0.9 L (1.0-4.8) k/uL Sodium (137-145) mmol/L Glucose (74-99) mg/dL POC Glucose (mg/dL) 122 H 151 H (70-110) mg/dL 11/20/23 11/20/23 Range/Units 03:28 07:10 Hgb (13.0-17.5) gm/dL Hct (39.0-53.0) % MCHC (31.0-37.0) g/dL RDW (11.5-15.5) % Lymphocytes # (1.0-4.8) k/uL Sodium (137-145) mmol/L Glucose 178 H (74-99) mg/dL POC Glucose (mg/dL) 140 H (70-110) mg/dL Microbiology - Last 24 Hours (Table) 11/18/23 11:30 Gram Stain - Preliminary Foot - Right Wound Culture - Preliminary Assessment and Plan (1) Type 2 diabetes mellitus with foot ulcer Current Visit: Yes Status: Acute Code(s): E11.621 - TYPE 2 DIABETES MELLITUS WITH FOOT ULCER; L97.509 - NON-PRESSURE CHRONIC ULCER OTH PRT UNSP FOOT W UNSP SEVERITY SNOMED Code(s): 8771075708514 (2) Abscess Current Visit: No Status: Acute Code(s): L02.91 - CUTANEOUS ABSCESS, UNSPECIFIED SNOMED Code(s): 045478915 (3) Osteomyelitis Current Visit: No Status: Acute Code(s): M86.9 - OSTEOMYELITIS, UNSPECIFIED SNOMED Code(s): 74443074 Plan: 1patient with right diabetic foot ulcer with surrounding cellulitis the patient also recently and was probing down to the wound at the time of obtaining wound culture and will need to cover for polymicrobial marion associated with diabetic foot infection 2--patient currently waiting for the MRI and also culture to finalize to cont inue with cefepime vancomycin and Flagyl pending workup completion Dictation was produced using [employer] dictation software. please excuse any grammatical, word or spelling errors. Time with Patient: Less than 30
[2023-11-20] MEDS: HYDROmorphone 1 MG/ML 1 ML SYRINGE IVP PRN (16:31)
[2023-11-20 18:56] LABS: Glucose,Whole Blood 211 mg/dL (70-110)
[2023-11-20 19:52] LABS: Glucose,Whole Blood 216 mg/dL (70-110)
[2023-11-21 04:30] LABS: African American GFR (CKD) >90 (>60 ml/min/1.73 sqM); Non-African American GFR(CKD) >90 (>60 ml/min/1.73 sqM)
--- NOTE | 2023-11-21 06:39 | MR ---
EXAMINATION TYPE: MR foot RT wo/w con DATE OF EXAM: 11/20/2023 6:20 PM CLINICAL INDICATION: Male, 58 years old with history of osteomyelitis; PHH, Osteomyelitis COMPARISON: 09/25/2023. TECHNIQUE: Multiplanar, multisequence MR imaging of the right forefoot was performed administration of IV gadolinium contrast. MR contrast: IV Contrast: 9ml cc Gadavist FINDINGS: Soft tissue wound over the plantar surface of the foot between the second and third digits with abnor mal bone marrow signal within the second and third metatarsals series 601 image 17. Additional abnorm al signal within thee third digit proximal phalanx. There is abnormal postcontrast enhancement around the wound and within the osseous structures including the second and third metatarsals and proximal phalanx described above. The first digit demonstrates postsurgical changes the mid metatarsal amputation. The second digit the re is surgical changes with amputation at the metatarsophalangeal joint. No organizing fluid collecti on identified. Streaky edema seen throughout the foot. Surgical changes also noted at the second thir d digits. IMPRESSION: 1. Osteomyelitis involving the second and third digit metatarsals as well as the third digit proxima l phalanges 2. Plantar surface wound without evidence of organizing fluid collection. 3.Diffuse edema throughout the lower extremity
[2023-11-21 07:18] LABS: Glucose,Whole Blood 142 mg/dL (70-110)
[2023-11-21] MEDS: LISINOPRIL-HCTZ 20-12.5 MG 1 EACH TAB PO SCH (11:59)
[2023-11-21] MEDS: SENNOSIDES-DOCUSATE SODIUM 1 EACH TAB PO SCH (11:59)
[2023-11-21 12:10] LABS: Glucose,Whole Blood 229 mg/dL (70-110)
--- NOTE | 2023-11-21 14:57 | P.PN ---
Subjective Progress Note Date: 11/21/23 Subjective: Patient seen and examined at the bedside. No acute events overnight. No chest pain, SOB. Patient have not had bowel movements since admission. All Systems reviewed and pertinent positives and negatives noted in HPI, all other symptoms are negative Objective: Vital signs reviewed. General: non toxic, no distress, appears at stated age, normal weight Derm: Fibrotic skin thickening and hyperpigmentation of the bilateral LE. Head: atraumatic, normocephalic, symmetric Eyes: EOMI, no lid lag, anicteric sclera, pupils equal round reactive to light ENT: Nose and ears atraumatic Neck: No cervical lymphadenopathy, trachea midline, supple Mouth: no lip lesion, mucus membranes moist Cardiovascular: S1S2 reg, no murmur, positive dorsalis pedis pulse bilateral, +2 right LE pitting edema, 1+ left LE pitting edema Lungs: CTA bilateral, no rhonchi, no rales, no accessory muscle use Abdominal: soft, nontender to palpation, no guarding Ext: muscle strength 5 out of 5 in all 4 extremities grossly, no gross muscle atrophy, no contractures, 4 to 5 cm stage III ulcer on the plantar surface (third metatarsal) of the right foot which is mildly purulent with mild edema and left plantar foot has few non purulent shallow skin ulcerations. Neuro: CN II-XI grossly intact, decreased bilateral sensation grossly Psych: Alert, oriented, appropriate affect Data reviewed today: Labs: Pending Wound Gram stain preliminary report shows polymicrobial growth Anaerobic wound culture is negative Blood culture is negative Images: MRI of the right foot shows osteomyelitis involving the second and third digit metatarsal as well as the third digit proximal phalanges. Assessment and Plan: 58-year-old male with a past medical history of type 2 diabetes, hypertension, GERD presents to the ED with worsening cellulitis. #RLE cellulitis secondary to chronic nonhealing foot ulcer in setting of bilateral venous stasis dermatitis #right foot Osteomyelitis ID consulted Patient is to continue on vancomycin 1500 mg IVPB every 12 hours and cefepime 2 g IVPB every 8 hours Flagyl discontinued since anaerobic wound culture is negative as discussed with Dr. Mendoza from ID Pain management: Acetaminophen 650 PO q6hr PRN, Motrin 400 mg PO q6hr PRN, morphine sulfate 4 mg IV q4hr PRN, Dilaudid 1 mg IVP every 4 hours as needed IV normal saline 20 cc/h MRI of the right foot shows osteomyelitis involving the second and third digit metatarsal as well as the third digit proximal phalanges. Wound Gram stain preliminary report shows polymicrobial growth Anaerobic wound culture is negative Blood culture is negative #Diastolic CHF, not in acute exacerbation #Dyspnea EF on echocardiogram on 07/29/23 50-55% Chest x-ray shows no acute cardiopulmonary process #Type 2 diabetes, complicated with bilateral foot diabetic neuropathy Holding home oral diabetic medication Placed on insulin SQ sliding scale Start Levemir 10 units SQ at bedtime Monitor glucose levels #Normocytic anemia Hgb 11.7 (baseline Hgb ~12), MCV 86 Patient denies active bleeding Monitor CBC #Hypertension Resume lisinopril/HCTZ 20-12.5 mg each PO daily #GERD Continue management Protonix 40 mg PO BID # Pruritus Benadryl 25mg po daily prn #Nausea and vomiting Zofran 4 mg IVP every 8 hour as needed #Lactic acidosis, resolved #Constipation Senokot 1 each p.o. twice daily DVT prophylaxis: Lovenox 40 SQ daily F: IV NS @ 20 cc/hr E: Replete electrolytes as needed N: Consistent carbohydrate diet A: Fall precautions, consult PT The patient is admitted with an anticipated rater than 2 midnight stay for evaluation of cellulitis secondary to chronic lower extremity nonhealing ulcer. CODE STATUS: Full Discussed with: Patient Anticipated discharge place: Unknown I have seen and evaluated the patient today. Discussed with the resident and agree with the residents finding and plan as documented in the resident's note. Added Senokot-S scheduled. Maintained on Vancomycin and Cefepime. WCx pending. ID on board. Objective - Vital Signs Vital signs: Vital Signs Temp 97.9 F 11/21/23 07:18 Pulse 83 11/21/23 07:18 Resp 16 11/21/23 07:18 BP 143/88 11/21/23 07:18 Pulse Ox 98 11/21/23 07:18 FiO2 Intake & Output 11/20/23 11/21/23 11/21/23 18:59 06:59 18:59 Intake Total 120 Balance 120 Intake: Oral 120 Other: Voiding Method Toilet Urinal - Labs CBC & Chem 7: 11/20/23 03:28 11/21/23 03:16 Labs: Abnormal Lab Results - Last 24 Hours (Table) 11/20/23 11/20/23 11/20/23 Range/Units 12:18 18:55 19:50 POC Glucose (mg/dL) 179 H 211 H 216 H (70-110) mg/dL 11/21/23 Range/Units 07:17 POC Glucose (mg/dL) 142 H (70-110) mg/dL Microbiology - Last 24 Hours (Table) 11/19/23 11:06 Blood Culture - Preliminary Blood 11/18/23 11:30 Anaerobic Culture - Preliminary Foot - Right
[2023-11-21] MEDS: oxyCODONE-APAP 5-325MG 1 EACH TAB PO PRN (16:57)
[2023-11-21 17:04] LABS: Glucose,Whole Blood 199 mg/dL (70-110)
[2023-11-21 20:03] LABS: Glucose,Whole Blood 143 mg/dL (70-110)
[2023-11-21] MEDS: INSULIN DETEMIR (LEVEMIR) 100 UNIT/ML SYR SQ SCH (20:26)
--- NOTE | 2023-11-21 22:33 | P.PN ---
Subjective Progress Note Date: 11/21/23 Principal diagnosis: Reason for follow-up is right diabetic foot infection/osteomyelitis Patient is a 58-year-old male with a past medical history significant for diabetes mellitus hypertension reflux heart failure PE patient did have a history of right diabetic foot ulcer and osteomyelitis, now presented to hospital with worsening right foot wound concerning for possible osteomyelitis. On today's evaluation that is 11/21/2023, the patient continues to be afebrile, the patient is on room air and breathing comfortably, the Pt denies having any chest pain or cough, the patient denies having any abdominal pain no vomiting or any diarrhea pain to the right foot has slightly decreased in intensity. No new lab has been obtained today culture currently growing A.faecalis patient did have MRI of the right foot osteomyelitis involving the second third digit metatarsal no evidence of any organizing fluid collection Objective - Vital Signs Vital signs: Vital Signs Temp 98.3 F 11/21/23 13:14 Pulse 95 11/21/23 13:14 Resp 18 11/21/23 13:14 BP 139/87 11/21/23 13:14 Pulse Ox 98 11/21/23 13:14 FiO2 Intake & Output 11/20/23 11/21/23 11/21/23 18:59 06:59 18:59 Intake Total 120 Balance 120 Intake: Oral 120 Other: Voiding Method Toilet Urinal # Voids 2 # Bowel Movements 1 - Exam GENERAL DESCRIPTION: Middle-age male lying in bed in no distress RESPIRATORY SYSTEM: Unlabored breathing , decreased breath sounds at bases HEART: S1 S2 regular rate and rhythm , ABDOMEN: Soft , no tenderness EXTREMITIES: Right foot is currently dressed - Labs CBC & Chem 7: 11/20/23 03:28 11/21/23 03:16 Labs: Abnormal Lab Results - Last 24 Hours (Table) 11/20/23 11/20/23 11/21/23 Range/Units 18:55 19:50 07:17 POC Glucose (mg/dL) 211 H 216 H 142 H (70-110) mg/dL 11/21/23 Range/Units 12:08 POC Glucose (mg/dL) 229 H (70-110) mg/dL Microbiology - Last 24 Hours (Table) 11/18/23 11:30 Gram Stain - Preliminary Foot - Right Wound Culture - Preliminary Alcaligenes faecalis ssp pheno 11/19/23 11:06 Blood Culture - Preliminary Blood 11/18/23 11:30 Anaerobic Culture - Preliminary Foot - Right Assessment and Plan (1) Type 2 diabetes mellitus with foot ulcer Current Visit: Yes Status: Acute Code(s): E11.621 - TYPE 2 DIABETES MELLITUS WITH FOOT ULCER; L97.509 - NON-PRESSURE CHRONIC ULCER OTH PRT UNSP FOOT W UNSP SEVERITY SNOMED Code(s): 3727003414164 (2) Abscess Current Visit: No Status: Acute Code(s): L02.91 - CUTANEOUS ABSCESS, UNSPECIFIED SNOMED Code(s): 330038479 (3) Osteomyelitis Current Visit: No Status: Acute Code(s): M86.9 - OSTEOMYELITIS, UNSPECIFIED SNOMED Code(s): 86397355 Plan: 1patient with right diabetic foot ulcer with surrounding cellulitis the patient also recently and was probing down to the wound at the time of obtaining wound culture and will need to cover for polymicrobial marion associated with diabetic foot infection 2--patient MRI has been finalized with concern for osteomyelitis no evidence of any drainable abscess culture currently showing Alcaligenes faecalis sensitivities pending 3we will continue the patient on current broad-spectrum antibiotic while waiting for the culture to finalize he will need a PICC line for outpatient IV antibiotic therapy Dictation was produced using [employer] dictation software. please excuse any grammatical, word or spelling errors. Time with Patient: Less than 30
[2023-11-22 07:02] LABS: Anisocytosis Slight; Basophils % (A) 0 %; Eosinophils # (A) 0.2 k/uL (0-0.7); Eosinophils % (A) 3 %; HCT 35.9 % (39.0-53.0); HGB 11.4 gm/dL (13.0-17.5); Hypochromasia Moderate; Lymphocytes # (A) 1.2 k/uL (1.0-4.8); Lymphocytes % (A) 21 %; MCHC 31.8 g/dL (31.0-37.0); Mean Platelet Volume 6.6; Monocytes # (A) 0.4 k/uL (0-1.0); Monocytes % (A) 7 %; Neutrophils # (A) 3.9 k/uL (1.3-7.7); Neutrophils % (A) 67 %; Platelet Count 377 k/uL (150-450); RBC 4.23 m/uL (4.30-5.90); WBC 5.8 k/uL (3.8-10.6)
[2023-11-22 07:11] LABS: Glucose,Whole Blood 140 mg/dL (70-110)
[2023-11-22 07:14] LABS: African American GFR (CKD) >90 (>60 ml/min/1.73 sqM); Anion Gap 4 mmol/L; Blood Urea Nitrogen 14 mg/dL (9-20); Calcium 8.6 mg/dL (8.4-10.2); Carbon Dioxide 26 mmol/L (22-30); Chloride 106 mmol/L (98-107); Glucose 149 mg/dL (74-99); Non-African American GFR(CKD) >90 (>60 ml/min/1.73 sqM); Potassium 4.8 mmol/L (3.5-5.1); Sodium 136 mmol/L (137-145)
[2023-11-22 12:17] LABS: Glucose,Whole Blood 192 mg/dL (70-110)
--- NOTE | 2023-11-22 13:59 | P.PN ---
Subjective Progress Note Date: 11/22/23 58 year old M with PMH of type 2 diabetes with peripheral neuropathy, diastolic CHF, hypertension, R foot osteomyelitis, GERD presents to the ED with cellulitis in setting of chronic nonhealing ulcers. Patient has been following with wound- care weekly for past several months and was told to go to the emergency department for IV antibiotics 4 days ago. As per ED documentation, patient noted that he was busy and wasn't able to come in. This has been happening since 2019. Patient states these wounds started from a blister and progressively got worse. In the ED he underwent extensive workup. T 98.2F, HR 109, RR 18, BP 154/93, 97% on RA. CBC and CMP significant for RBC 4.1, Hg 11.2, Hct 33.9, Na 136, glu 310, alk phos 136, alb 3.3. Lactic acid 2.1. Patient was started on Gentamicin in the ED and admitted for ID evaluation. Antibiotics switched to Vancomycin, Cefepime and Flagyl. Wound Cx obtained currently growing alcaligenes faecalis. MRI of the right foot confirming OM involving the 2nd and 3rd digit metatarsals as well as the 3rd digit proximal phalanges. Plans for PICC line for additional IV antibiotics on discharge. 11/21 Patient was seen and examined. No complains doing well. Maintained on Vancomycin and Cefepime. Flagyl previously discontinued due to anaerobic Cx coming back negative. CBC and BMP significant for RBC 4.23, Hg 11.4, Hct 35.9, Na 136, glu 149. General: non toxic, no distress, appears at stated age, normal weight Derm: Venous stasis changes bilateral LE. Head: atraumatic, normocephalic, symmetric Eyes: EOMI, no lid lag, anicteric sclera Mouth: no lip lesion, mucus membranes moist Cardiovascular: S1S2 reg, no murmur, +2 RLE pitting edema, 1+ LLE pitting edema Lungs: CTA bilateral, no rhonchi, no rales, no accessory muscle use Abdominal: soft, nontender to palpation, no guarding Ext: 4 to 5 cm stage III ulcer on the plantar surface (third metatarsal) of the right foot which is mildly purulent with mild edema and left plantar foot has few non purulent shallow skin ulcerations. Psych: Alert, oriented, appropriate affect Based on my assessment of this patient, this patient meets a high complexity level of care. RLE cellulitis secondary to chronic nonhealing foot ulcer in setting of bilateral venous stasis dermatitis Right foot Osteomyelitis: WCx as above. BCx prelim negative so far. Continue Vancomycin dosed per pharmacy and Cefepime 2g IV TID. Monitor renal function daily while on Vancomycin. Pain control with Dilaudid 1 mg IV Q3H PRN, Ibuprofen 400 mg PO Q6H PRN, Tylenol 650 mg PO Q6H PRN, Percocet 5 PO Q4H PRN. Plans for PICC line and IV antibiotics on discharge. ID on board. DM with hyperglycemia: Levemir 10 units QHS. ISS. Accuchecks ACHS. Hypoglycemic precautions. Diastolic CHF not in acute exacerbation with EF 50-55% 07/30 Echo Normocytic anemia: At baseline. No signs of active bleeding. Monitor. Hypertension: Lisinopril 20 mg PO QD. HCTZ 12.5 mg PO QD. GERD: Protonix 40 mg PO BID. Pruritis: Benadryl 25 mg PO QD PRN. Resovled: Lactic acidosis CODE STATUS: FULL CODE DVT Prophylaxis: Lovenox SQ GI Prophylaxis: Protonix PO Designated medical POA if patient is not able to make medical decisions for themselves: I have reviewed the following desktop support consultant notes: ID I have reviewed the results of the following tests: CBC, BMP, WCx, BCx I have ordered the following tests: Renal function daily I have discussed the care of this patient with the following independent historian: I have independently interpreted the following test below: I have discussed the management of this patient with the following physician: Objective - Vital Signs Vital signs: Vital Signs Temp 97.8 F 11/22/23 07:12 Pulse 76 11/22/23 07:12 Resp 16 11/22/23 07:12 BP 136/89 11/22/23 07:12 Pulse Ox 97 11/22/23 07:12 FiO2 Intake & Output 11/21/23 11/22/23 11/22/23 18:59 06:59 18:59 Intake Total 480 Balance 480 Intake: Oral 480 Other: # Voids 3 # Bowel Movements 1 - Labs CBC & Chem 7: 11/22/23 06:35 11/22/23 06:35 Labs: Abnormal Lab Results - Last 24 Hours (Table) 11/21/23 11/21/2324 Range/Units 17:02 20:01 06:35 RBC 4.23 L (4.30-5.90) m/uL Hgb 11.4 L (13.0-17.5) gm/dL Hct 35.9 L (39.0-53.0) % RDW 16.0 H (11.5-15.5) % Sodium (137-145) mmol/L Glucose (74-99) mg/dL POC Glucose (mg/dL) 199 H 143 H (70-110) mg/dL 11/22/23 11/22/23 11/22/23 Range/Units 06:35 07:10 12:16 RBC (4.30-5.90) m/uL Hgb (13.0-17.5) gm/dL Hct (39.0-53.0) % RDW (11.5-15.5) % Sodium 136 L (137-145) mmol/L Glucose 149 H (74-99) mg/dL POC Glucose (mg/dL) 140 H 192 H (70-110) mg/dL Microbiology - Last 24 Hours (Table) 11/18/23 11:30 Anaerobic Culture - Final Foot - Right 11/18/23 11:30 Gram Stain - Final Foot - Right Wound Culture - Final Alcaligenes faecalis ssp pheno 11/19/23 11:06 Blood Culture - Preliminary Blood
--- NOTE | 2023-11-22 15:28 | P.PN ---
Subjective Progress Note Date: 11/22/23 Principal diagnosis: Reason for follow-up is right diabetic foot infection/osteomyelitis Patient is a 58-year-old male with a past medical history significant for diabetes mellitus hypertension reflux heart failure PE patient did have a history of right diabetic foot ulcer and osteomyelitis, now presented to hospital with worsening right foot wound concerning for possible osteomyelitis. On today's evaluation that is 11/22/2023, Patient is afebrile patient is curren tly on room air and denies having any shortness of breath, the patient denies any chest pain or cough, the patient denies any nausea vomiting did not have any abdominal pain and no diarrhea pain to the right foot is currently controlled. Patient white count is 5.8, creatinine 0.83, culture finalized with Alcaligenes faecalis Objective - Vital Signs Vital signs: Vital Signs Temp 98.1 F 11/22/23 13:22 Pulse 87 11/22/23 13:22 Resp 19 11/22/23 13:22 BP 144/88 11/22/23 13:22 Pulse Ox 98 11/22/23 13:22 FiO2 Intake & Output 11/21/23 11/22/23 11/22/23 18:59 06:59 18:59 Intake Total 480 Balance 480 Intake: Oral 480 Other: # Voids 3 # Bowel Movements 1 - Exam GENERAL DESCRIPTION: Middle-age male lying in bed in no distress RESPIRATORY SYSTEM: Unlabored breathing , decreased breath sounds at bases HEART: S1 S2 regular rate and rhythm , ABDOMEN: Soft , no tenderness EXTREMITIES: Right foot is currently dressed - Labs CBC & Chem 7: 11/22/23 06:35 11/22/23 06:35 Labs: Abnormal Lab Results - Last 24 Hours (Table) 11/21/23 11/21/23 11/22/23 Range/Units 17:02 20:01 06:35 RBC 4.23 L (4.30-5.90) m/uL Hgb 11.4 L (13.0-17.5) gm/dL Hct 35.9 L (39.0-53.0) % RDW 16.0 H (11.5-15.5) % Sodium (137-145) mmol/L Glucose (74-99) mg/dL POC Glucose (mg/dL) 199 H 143 H (70-110) mg/dL 11/22/23 11/22/23 11/22/23 Range/Units 06:35 07:10 12:16 RBC (4.30-5.90) m/uL Hgb (13.0-17.5) gm/dL Hct (39.0-53.0) % RDW (11.5-15.5) % Sodium 136 L (137-145) mmol/L Glucose 149 H (74-99) mg/dL POC Glucose (mg/dL) 140 H 192 H (70-110) mg/dL Microbiology - Last 24 Hours (Table) 11/18/23 11:30 Anaerobic Culture - Final Foot - Right 11/18/23 11:30 Gram Stain - Final Foot - Right Wound Culture - Final Alcaligenes faecalis ssp pheno 11/19/23 11:06 Blood Culture - Preliminary Blood Assessment and Plan (1) Type 2 diabetes mellitus with foot ulcer Current Visit: Yes Status: Acute Code(s): E11.621 - TYPE 2 DIABETES MELLITUS WITH FOOT ULCER; L97.509 - NON-PRESSURE CHRONIC ULCER OTH PRT UNSP FOOT W UNSP SEVERITY SNOMED Code(s): 5002694690084 (2) Abscess Current Visit: No Status: Acute Code(s): L02.91 - CUTANEOUS ABSCESS, UNSPECIFIED SNOMED Code(s): 045505196 (3) Osteomyelitis Current Visit: No Status: Acute Code(s): M86.9 - OSTEOMYELITIS, UNSPECIFIED SNOMED Code(s): 28881540 Plan: 1patient with right diabetic foot ulcer with surrounding cellulitis the patient also recently and was probing down to the wound at the time of obtaining wound culture and will need to cover for polymicrobial marion associated with diabetic foot infection 2--patient MRI has been finalized with concern for osteomyelitis no evidence of any drainable abscess culture currently showing Alcaligenes faecalis that is a sensitive pathogen 3patient to get a PICC line plan is for 6-week course of IV Rocephin and oral Flagyl we will discontinue vancomycin Dictation was produced using [employer] dictation software. please excuse any grammatical, word or spelling errors. Time with Patient: Less than 30
[2023-11-22] MEDS: metroNIDAZOLE 500 MG TAB PO SCH (17:19)
[2023-11-22 17:22] LABS: Glucose,Whole Blood 148 mg/dL (70-110)
[2023-11-22 20:23] LABS: Glucose,Whole Blood 187 mg/dL (70-110)
[2023-11-23 02:47] VITALS: TEMP 97.9
[2023-11-23 06:44] LABS: African American GFR (CKD) >90 (>60 ml/min/1.73 sqM); Non-African American GFR(CKD) >90 (>60 ml/min/1.73 sqM)
[2023-11-23 07:49] LABS: Anisocytosis Slight; Basophils % (A) 0 %; Eosinophils # (A) 0.2 k/uL (0-0.7); Eosinophils % (A) 3 %; HCT 37.4 % (39.0-53.0); HGB 11.8 gm/dL (13.0-17.5); Hypochromasia Slight; Lymphocytes # (A) 1.2 k/uL (1.0-4.8); Lymphocytes % (A) 21 %; MCH 26.6 pg (25.0-35.0); MCHC 31.5 g/dL (31.0-37.0); MCV 84.3 fL (80.0-100.0); Mean Platelet Volume 6.7; Monocytes # (A) 0.4 k/uL (0-1.0); Monocytes % (A) 8 %; Neutrophils # (A) 3.7 k/uL (1.3-7.7); Neutrophils % (A) 66 %; Platelet Count 420 k/uL (150-450); RBC 4.44 m/uL (4.30-5.90); RDW 16.1 % (11.5-15.5); WBC 5.7 k/uL (3.8-10.6)
[2023-11-23] MEDS ORDERED: VANCOMYCIN TROUGH DUE 1 EACH MISC MISCELLANE ONE (08:00)
[2023-11-23 08:15] LABS: Glucose,Whole Blood 147 mg/dL (70-110)
[2023-11-23 08:15] LABS: Anion Gap 7 mmol/L; Blood Urea Nitrogen 12 mg/dL (9-20); Calcium 9.2 mg/dL (8.4-10.2); Carbon Dioxide 26 mmol/L (22-30); Chloride 103 mmol/L (98-107); Glucose 211 mg/dL (74-99); Potassium 4.6 mmol/L (3.5-5.1); Sodium 136 mmol/L (137-145)
[2023-11-23 08:34] VITALS: BP 122/77; PULSE 77; RESP 18
--- NOTE | 2023-11-23 09:05 | US ---
EXAMINATION TYPE: US venous doppler duplex LE RT DATE OF EXAM: 11/23/2023 8:54 AM COMPARISON: 09/01/23 CLINICAL INDICATION: Male, 58 years old with history of rt Calf pain extending to thigh; right leg pa in. Hx of PE. Not on blood thinners SIDE PERFORMED: Right TECHNIQUE: The lower extremity deep venous system is examined utilizing real time linear array sonog caroline with graded compression, doppler sonography and color-flow sonography. VESSELS IMAGED: Common Femoral Vein Deep Femoral Vein Greater Saphenous Vein * Femoral Vein Popliteal Vein Small Saphenous Vein * Proximal Calf Veins (* superficial vessels) Right Leg: No evidence of DVT seen. 2 prominent lymph nodes seen in groin. This has increased over the interval. IMPRESSION: 1. Right lower extremity ultrasound negative for deep venous thrombosis. 2. Enlarged right inguinal adenopathy. Clinical correlation and workup recommended. [facility], , 11/23/2023 9:03 AM
[2023-11-23 12:07] LABS: Glucose,Whole Blood 265 mg/dL (70-110)
[2023-11-23] MEDS: ENOXAPARIN 40 MG/0.4 ML SYRINGE SQ SCH (12:30)
--- NOTE | 2023-11-23 12:31 | P.DS ---
Providers Date of admission: 11/18/23 14:57 Expected date of discharge: 11/23/23 Attending physician: Sunny Estrada MD Consults: 11/17/23 20:42 Consult Physician Routine Consulting Provider: Hu Mendoza Consult Reason/Comments: acute on chronic lower extremity wounds Do you want consulting provider notified?: Yes, Notify in am Primary care physician: Deyvi Hurtado Hospital Course: Discharge Diagnosis: 1. RLE cellulitis secondary to chronic nonhealing foot ulcer in setting of bilateral venous stasis dermatitis 2. Right foot Osteomyelitis 3. DM type II with hyperglycemia 4. Diastolic CHF not in acute exacerbation 5. Normocytic anemia: At baseline 6. Hypertension 7. GERD 8. Pruritis Hospital Course: 58 year old M with PMH of type 2 diabetes with peripheral neuropathy, diastolic CHF, hypertension, R foot osteomyelitis, GERD presents to the ED with cellulitis in setting of chronic nonhealing ulcers. Patient has been following with wound- care weekly for past several months and was told to go to the emergency department for IV antibiotics 4 days ago. As per ED documentation, patient noted that he was busy and wasn't able to come in. This has been happening since 2019. Patient states these wounds started from a blister and progressively got worse. In the ED he underwent extensive workup. T 98.2F, HR 109, RR 18, BP 154/93, 97% on RA. CBC and CMP significant for RBC 4.1, Hg 11.2, Hct 33.9, Na 136, glu 310, alk phos 136, alb 3.3. Lactic acid 2.1. Patient was started on Gentamicin in the ED and admitted for ID evaluation. Antibiotics switched to Vancomycin, Cefepime and Flagyl. Wound Cx obtained currently growing alcaligenes faecalis. MRI of the right foot confirming osteomyelitis involving the 2nd and 3rd digit metatarsals as well as the 3rd digit proximal phalanges. Patient was seen and examined. No complains and doing well. Vancomycin discontinued, maintained on cefepime. Flagyl previously discontinued due to anaerobic Cx coming back negative. CBC and BMP significant for RBC 4.23, Hg 11.4, Hct 35.9, Na 136, glu 149. PICC line was established. Patient discharged with home care and to receive Rocephin 200 mg IVP every 24 hour to be a dministered through PICC line. Patient to continue on Jardiance 25 mg p.o. daily, omeprazole 20 mg p.o. twice daily, lisinopril/hydrochlorothiazide 20/12.5 mg 1 tab p.o. daily. Patient to follow-up with PCP in 1-2, vascular surgeon in 1 week and infectious disease in 1 week. Patient provided with requisition for BMP, CRP, CBC with differential, ESR. To be done outpatient. Patient provided instruction on osteomyelitis. Vital signs reviewed. General: non toxic, no distress, appears at stated age, normal weight Derm: Fibrotic skin thickening and hyperpigmentation of the bilateral LE. Head: atraumatic, normocephalic, symmetric Eyes: EOMI, no lid lag, anicteric sclera, pupils equal round reactive to light ENT: Nose and ears atraumatic Neck: No cervical lymphadenopathy, trachea midline, supple Mouth: no lip lesion, mucus membranes moist Cardiovascular: S1S2 reg, no murmur, positive dorsalis pedis pulse bilateral, no edema Lungs: CTA bilateral, no rhonchi, no rales, no accessory muscle use Abdominal: soft, nontender to palpation, no guarding Ext: muscle strength 5 out of 5 in all 4 extremities grossly, no gross muscle atrophy, no contractures, right foot bandaged. Left plantar foot has few non purulent shallow skin ulcerations. Neuro: CN II-XI grossly intact, decreased bilateral sensation grossly Psych: Alert, oriented, appropriate affect A total of 35 minutes of time were spent preparing this complex discharge summary. Patient was discharged on 11/23/2023 at 1207. I have seen and evaluated the patient today. Discussed with the resident and agree with the residents finding and plan as documented in the resident's note. Changes highlighted in blue font. Patient Condition at Discharge: Stable Plan - Discharge Summary Discharge Rx Participant: No New Discharge Prescriptions: New cefTRIAXone [Rocephin] 2,000 mg IVP Q24HR #40 each Continue Empagliflozin [Jardiance] 25 mg PO DAILY Omeprazole [PriLOSEC] 20 mg PO BID Lisinopril-Hctz 20-12.5 mg [Zestoretic 20-12.5] 1 tab PO DAILY Discharge Medication List Empagliflozin [Jardiance] 25 mg PO DAILY 09/01/23 [History] Lisinopril-Hctz 20-12.5 mg [Zestoretic 20-12.5] 1 tab PO DAILY 09/01/23 [History] Omeprazole [PriLOSEC] 20 mg PO BID 09/01/23 [History] cefTRIAXone [Rocephin] 2,000 mg IVP Q24HR #40 each 11/23/23 [Rx] Follow up Appointment(s)/Referral(s): Deyvi Hurtado MD [Primary Care Provider] - 11/26/23 1:15 pm Sowmya San DO [STAFF PHYSICIAN] - 11/25/23 9:15 am [facility], [NON-STAFF] - 1 Week [facility], [REFERRING] - 1 Week Hu Mendoza MD [STAFF PHYSICIAN] - 1 Week (Left the office a message for them to contact you with an appointment date and time, If you do not here from them please call and schedule your appointment.) Ambulatory/Diagnostic Orders: Basic Metabolic Panel [LAB.AMB] Location: None Selected C Reactive Protein [LAB.AMB] Location: None Selected Complete Blood Count w/diff [LAB.AMB] Location: None Selected Erythrocyte Sedimentation Rate [LAB.AMB] Location: None Selected Patient Instructions/Handouts: Ceftriaxone (By injection), Cellulitis (GEN), Osteomyelitis (DC) Activity/Diet/Wound Care/Special Instructions: Please see PCP, ID, and vascular Surgery. You will likely need amputation if no improvement. Discharge Disposition: HOME WITH HOME HEALTH SERVICES
--- NOTE | 2023-11-23 13:07 | P.PN ---
Subjective Progress Note Date: 11/23/23 Principal diagnosis: Reason for follow-up is right diabetic foot infection/osteomyelitis Patient is a 58-year-old male with a past medical history significant for diabetes mellitus hypertension reflux heart failure PE patient did have a history of right diabetic foot ulcer and osteomyelitis, now presented to hospital with worsening right foot wound concerning for possible osteomyelitis. On today's evaluation that is 11/23/2023, patient has been afebrile, patient is breathing comfortably and is currently on room air, patient denies having any significant cough no chest pain shortness of breath, patient denies nausea vomiting or diarrhea and no abdominal pain, the patient pain to the right foot has decreased in intensity. Patient white count is 5.7, creatinine 0.74 blood culture negative Objective - Vital Signs Vital signs: Vital Signs Temp 97.9 F 11/23/23 08:00 Pulse 77 11/23/23 08:00 Resp 18 11/23/23 08:00 BP 122/77 11/23/23 08:00 Pulse Ox 99 11/23/23 08:00 FiO2 Intake & Output 11/22/23 11/23/23 11/23/23 18:59 06:59 18:59 Intake Total 1080 240 Balance 1080 240 Intake: Oral 1080 240 - Exam GENERAL DESCRIPTION: Middle-age male lying in bed in no distress RESPIRATORY SYSTEM: Unlabored breathing , decreased breath sounds at bases HEART: S1 S2 regular rate and rhythm , ABDOMEN: Soft , no tenderness EXTREMITIES: Right foot lateral wound has dried up swelling redness has decreased - Labs CBC & Chem 7: 11/23/23 06:17 11/23/23 06:17 Labs: Abnormal Lab Results - Last 24 Hours (Table) 11/22/23 11/22/23 11/22/23 Range/Units 12:16 17:20 20:22 Hgb (13.0-17.5) gm/dL Hct (39.0-53.0) % RDW (11.5-15.5) % Sodium (137-145) mmol/L Glucose (74-99) mg/dL POC Glucose (mg/dL) 192 H 148 H 187 H (70-110) mg/dL 11/23/23 11/23/23 11/23/23 Range/Units 06:17 06:17 08:13 Hgb 11.8 L (13.0-17.5) gm/dL Hct 37.4 L (39.0-53.0) % RDW 16.1 H (11.5-15.5) % Sodium 136 L (137-145) mmol/L Glucose 211 H (74-99) mg/dL POC Glucose (mg/dL) 147 H (70-110) mg/dL Microbiology - Last 24 Hours (Table) 11/19/23 11:06 Blood Culture - Preliminary Blood 11/18/23 11:30 Anaerobic Culture - Final Foot - Right 11/18/23 11:30 Gram Stain - Final Foot - Right Wound Culture - Final Alcaligenes faecalis ssp pheno Assessment and Plan (1) Type 2 diabetes mellitus with foot ulcer Current Visit: Yes Status: Acute Code(s): E11.621 - TYPE 2 DIABETES MELLITUS WITH FOOT ULCER; L97.509 - NON-PRESSURE CHRONIC ULCER OTH PRT UNSP FOOT W UNSP SEVERITY SNOMED Code(s): 4622910233036 (2) Abscess Current Visit: No Status: Acute Code(s): L02.91 - CUTANEOUS ABSCESS, UNSPECIFIED SNOMED Code(s): 438119980 (3) Osteomyelitis Current Visit: No Status: Acute Code(s): M86.9 - OSTEOMYELITIS, UNSPECIFIED SNOMED Code(s): 85530586 Plan: 1patient with right diabetic foot ulcer with surrounding cellulitis the patient also recently and was probing down to the wound at the time of obtaining wound culture and will need to cover for polymicrobial marion associated with diabetic foot infection 2--patient MRI has been finalized with concern for osteomyelitis no evidence of any drainable abscess culture currently showing Alcaligenes faecalis that is a sensitive pathogen 3patient currently waiting for PICC line placement, antibiotic has been switched to Rocephin 2 g daily plan is for 6-week course of IV Rocephin and oral Flagyl local care to continue with Aquacel silver packing of the wound Dictation was produced using [employer] dictation software. please excuse any grammatical, word or spelling errors. Time with Patient: Less than 30
== END 2023-11-23 13:46 | disposition home health service (06) | DRG 638 ==
LOC: EC 19:08 → 4SSUR 20:33 → 5NMEDONC 11-18 04:55 → OBSVTOIN 11-18 14:57
PROVIDERS: ADMIT Internal Medicine; ATTEND Internal Medicine
PROC: 05HC33Z Insertion of Infusion Device into Left Basilic Vein, Percutaneous Approach (ICD-10-PCS; principal; 2023-11-23 14:05)
DX: E11.69 Type 2 diabetes mellitus with other specified complication (principal); E87.20 Acidosis, unspecified; I50.32 Chronic diastolic (congestive) heart failure; L03.115 Cellulitis of right lower limb; L97.812 Non-pressure chronic ulcer of other part of right lower leg with fat layer exposed; M86.9 Osteomyelitis, unspecified; E11.42 Type 2 diabetes mellitus with diabetic polyneuropathy; E11.621 Type 2 diabetes mellitus with foot ulcer; E11.622 Type 2 diabetes mellitus with other skin ulcer; E11.628 Type 2 diabetes mellitus with other skin complications; E11.65 Type 2 diabetes mellitus with hyperglycemia; D64.9 Anemia, unspecified; I11.0 Hypertensive heart disease with heart failure; I83.018 Varicose veins of right lower extremity with ulcer other part of lower leg; I87.2 Venous insufficiency (chronic) (peripheral); I87.8 Other specified disorders of veins; K21.9 Gastro-esophageal reflux disease without esophagitis; K59.00 Constipation, unspecified; L29.9 Pruritus, unspecified; L97.514 Non-pressure chronic ulcer of other part of right foot with necrosis of bone; Z56.0 Unemployment, unspecified; Z79.4 Long term (current) use of insulin; Z79.84 Long term (current) use of oral hypoglycemic drugs; Z79.899 Other long term (current) drug therapy; Z86.711 Personal history of pulmonary embolism; Z87.442 Personal history of urinary calculi; Z87.891 Personal history of nicotine dependence; Z86.14 Personal history of Methicillin resistant Staphylococcus aureus infection; Z28.310 Unvaccinated for COVID-19; Z88.8 Allergy status to other drugs, medicaments and biological substances
CPT/HCPCS: 36415; 36573; 71046; 80048; 80053; 80202; 82565; 83605; 83735; 85025; 85610; 85652; 85730; 86140; 87040; 87070; 87075; 87077; 87186; 87205; 93005; 96365; 96375; 99285

== ENCOUNTER 2024-02-12 10:37 | Emergency (ER) | payer MEDICARE, OTHER ==
[2024-02-12 10:55] VITALS: TEMP 97.7
--- NOTE | 2024-02-12 11:10 | ED ---
General Adult HPI - General Chief complaint: Syncope Stated complaint: Fall-head injury Time Seen by Provider: 02/12/24 10:58 Source: patient, RN notes reviewed Mode of arrival: wheelchair Limitations: no limitations - History of Present Illness Initial comments: This is a 58-year-old male with uncontrolled diabetes presenting to the emergency department due to a syncopal event. Patient states that he was going to an appointment at his wound care center when he had to park further away from his building and was swiftly walking when he felt mildly short of breath when he came inside of the warm building states that he began to feel dizzy and lighth eaded like he was going to pass out. Patient states that after he got to the elevator walked out and again felt like he was going to pass out when he went onto his knees and hit his head on the side of the wall and was unconscious for a few seconds. Currently he is denying headache, blurry or double vision, shortness of breath or difficulty breathing. Patient is endorsing pain over the right and left clavicle and posterior left shoulder. States that he has had a syncopal event in the past that has been similar. He denies recent prolonged travel, unilateral leg swelling, recent surgeries. States he was diagnosed with a pulmonary embolism in July however denies current blood thinner use. - Related Data Home Medications Medication Instructions Recorded Confirmed Empagliflozin [Jardiance] 25 mg PO DAILY 09/01/23 11/17/23 Lisinopril-Hctz 20-12.5 mg 1 tab PO DAILY 09/01/23 11/17/23 [Zestoretic 20-12.5] Omeprazole [PriLOSEC] 20 mg PO BID 09/01/23 11/17/23 Previous Rx's Medication Instructions Recorded cefTRIAXone [Rocephin] 2,000 mg IVP Q24HR #40 each 11/23/23 Allergies Allergy/AdvReac Type Severity Reaction Status Date / Time metformin AdvReac Nausea & Verified 02/12/24 10:48 Vomiting & Diarrhea Ehmpcvx-ZYP-XdP Reductase AdvReac liver Verified 02/12/24 10:48 Inhibitor problems [Hjzhjdt-Ivc-Yst Reductase Inhibitor] Review of Systems ROS Statement: Those systems with pertinent positive or pertinent negative responses have been documented in the HPI. ROS Other: All systems not noted in ROS Statement are negative. Past Medical History Past Medical History: Heart Failure, Diabetes Mellitus, GERD/Reflux, Hypertension, Pulmonary Embolus (PE), Syncope Additional Past Medical History / Comment(s): occ. pain with swallowing at times, hiatal hernia, dry skin, hx kidney stones, non healing foot ulcers History of Any Multi-Drug Resistant Organisms: MRSA Date of last positivie culture/infection: 08/02/23 MDRO Source:: Right Foot Past Surgical History: Orthopedic Surgery Additional Past Surgical History / Comment(s): cystoscopy/stent in urethra, olga carpal tunnel, trigger finger left thumb, rt thumb surgery, shoulder surgery Past Anesthesia/Blood Transfusion Reactions: No Reported Reaction Additional Past Anesthesia/Blood Transfusion Reaction / Comment(s): dizziness Past Psychological History: No Psychological Hx Reported Smoking Status: Former smoker Past Alcohol Use History: None Reported Past Drug Use History: Marijuana - Past Family History Mother Family Medical History: Hyperlipidemia Father Family Medical History: Diabetes Mellitus General Exam Limitations: no limitations General appearance: alert, in no apparent distress Eye exam: Present: normal appearance, PERRL, EOMI. Absent: scleral icterus, conjunctival injection, periorbital swelling Neck exam: Present: normal inspection. Absent: tenderness, meningismus, lymphadenopathy Respiratory exam: Present: normal lung sounds bilaterally, chest wall tenderness (right clavicular, no crepitus or skin tenting). Absent: respiratory distress, wheezes, rales, rhonchi, stridor Cardiovascular Exam: Present: regular rate, normal rhythm, normal heart sounds. Absent: systolic murmur, diastolic murmur, rubs, gallop, clicks GI/Abdominal exam: Present: soft, normal bowel sounds. Absent: distended, tenderness, guarding, rebound, rigid Extremities exam: Present: normal inspection, full ROM, normal capillary refill. Absent: tenderness, pedal edema, joint swelling, calf tenderness Back exam: Present: normal inspection Neurological exam: Present: alert, oriented X3, CN II-XII intact Skin exam: Present: warm, dry, intact, normal color. Absent: rash Course Vital Signs 02/12/24 10:48 Temperature 97.7 F Pulse Rate 102 H Respiratory 18 Rate Blood Pressure 140/86 O2 Sat by Pulse 97 Oximetry Medical Decision Making - Medical Decision Making Was pt. sent in by a medical professional or institution (, PA, LUMBER TYING MACHINE OPERATOR, urgent care, hospital, or custodial...) When possible be specific @ -No Did you speak to anyone other than the patient for history (EMS, parent, family, police, friend...)? What history was obtained from this source @ -No Did you review nursing and triage notes (agree or disagree)? Why? @ -I reviewed and agree with nursing and triage notes Were old charts reviewed (outside hosp., previous admission, EMS record, old EKG, old radiological studies, urgent care reports/EKG's, custodial records)? Report findings @ -No old charts were reviewed Differential Diagnosis (chest pain, altered mental status, abdominal pain women, abdominal pain men, vaginal bleeding, weakness, fever, dyspnea, syncope, headache, dizziness, GI bleed, back pain, seizure, CVA, palpatations, mental health, musculoskeletal)? @ -Differential Syncope: Valvular disease, hypertrophic cardiomyopathy, pulmonary embolism, tamponade, tachycardia, bradycardia, CO, hypovolemia, hemorrhage, dissection, anemia, intracranial hemorrhage, seizure, hypoglycemia, carbon monoxide poisoning, this is not meant to be an all-inclusive list. EKG interpreted by me (3pts min.). @ -Completed at 1120 sinus rhythm with a ventricular rate of 97, AR interval 140, QRS 116, QTc 431. X-rays interpreted by me (1pt min.). @ -chest x-ray reveals borderline cardiomegaly. CT interpreted by me (1pt min.). @ -CT of the brain and C-spine without contrast no acute intracranial or cervical spine process. U/S interpreted by me (1pt. min.). @ -None done What testing was considered but not performed or refused? (CT, X-rays, U/S, labs)? Why? @ -None What meds were considered but not given or refused? Why? @ -None Did you discuss the management of the patient with other professionals (professionals i.e. Dr., PA, LUMBER TYING MACHINE OPERATOR, lab, RT, psych nurse, social services analyst, pmo business analyst, teacher, giving officer, case checker)? Give summary @ -No Was smoking cessation discussed for >3mins.? @ -No Was critical care preformed (if so, how long)? @ -No Were there social determinants of health that impacted care today? How? (Homelessness, low income, unemployed, alcoholism, drug addiction, tra nsportation, low edu. Level, literacy, decrease access to med. care, fpc, rehab)? @ -No Was there de-escalation of care discussed even if they declined (Discuss DNR or withdrawal of care, Hospice)? DNR status @ -No What co-morbidities impacted this encounter? (DM, HTN, Smoking, COPD, CAD, Cancer, CVA, ARF, Chemo, Hep., AIDS, mental health diagnosis, sleep apnea, morbid obesity)? @ -None Was patient admitted / discharged? Hospital course, mention meds given and route, prescriptions, significant lab abnormalities, going to OR and other pertinent info. @ -Patient left AGAINST MEDICAL ADVICE and was discharged. 58-year-old male with a syncopal event. On my evaluation the patient is resting comfortably with a c-collar in place and no signs acute distress. His vitals are stable. N eurological examination with no acute deficits. Patient provided with dose of pain medication pending syncope workup. He is agree with this plan. CT chest x-ray unremarkable. EKG is in sinus rhythm. Patient's laboratory testing including cardiac enzymes and D-dimer nonelevated. hyperglycemia of 384, provided with 8 unit insulin bolus. Recommend that patient be admitted to the hospital with cardiac workup and concern for 2 syncopal events that occurred today explicitly after exertion. Patient is denying and refusing admission at this time stating that he would like to follow-up outpatient. Recommend patient contact his primary care provider today to follow-up either within the next 24 to 48 hours for further evaluation. All questions have been answered at bedside and strict return parameters have discussed with the patient is verbalized understanding. Case discussed with Dr. Redmond Undiagnosed new problem with uncertain prognosis? @ -No Drug Therapy requiring intensive monitoring for toxicity (Heparin, Nitro, Insulin, Cardizem)? @ -No Were any procedures done? @ -No Diagnosis/symptom? @ -syncope Acute, or Chronic, or Acute on Chronic? @ -acute Uncomplicated (without systemic symptoms) or Complicated (systemic symptoms)? @ -complicated Side effects of treatment? @ -No Exacerbation, Progression, or Severe Exacerbation? @ -No Poses a threat to life or bodily function? How? (Chest pain, USA, CO, pneumonia, PE, COPD, DKA, ARF, appy, cholecystitis, CVA, Diverticulitis, Homicidal, Suicidal, threat to staff... and all critical care pts) @ -No - Lab Data Result diagrams: 02/12/24 11:15 02/12/24 11:15 Lab Results 02/12/24 02/12/24 02/12/24 Range/Units 11:14 11:15 11:15 WBC 8.4 (3.8-10.6) k/uL RBC 4.95 (4.30-5.90) m/uL Hgb 13.6 (13.0-17.5) gm/dL Hct 42.1 (39.0-53.0) % MCV 85.0 (80.0-100.0) fL MCH 27.6 (25.0-35.0) pg MCHC 32.4 (31.0-37.0) g/dL RDW 15.5 (11.5-15.5) % Plt Count 311 (150-450) k/uL MPV 7.1 Neutrophils % 68 % Lymphocytes % 22 % Monocytes % 6 % Eosinophils % 2 % Basophils % 1 % Neutrophils # 5.7 (1.3-7.7) k/uL Lymphocytes # 1.9 (1.0-4.8) k/uL Monocytes # 0.5 (0-1.0) k/uL Eosinophils # 0.2 (0-0.7) k/uL Basophils # 0.1 (0-0.2) k/uL PT 10.6 (10.0-12.5) sec INR 1.0 (<1.2) APTT 22.7 (22.0-30.0) sec D-Dimer (<0.60) mg/L FEU Sodium (137-145) mmol/L Potassium (3.5-5.1) mmol/L Chloride (98-107) mmol/L Carbon Dioxide (22-30) mmol/L Anion Gap mmol/L BUN (9-20) mg/dL Creatinine (0.66-1.25) mg/dL Est GFR (CKD-EPI)AfAm (>60 ml/min/1.73 sqM) Est GFR (CKD-EPI)NonAf (>60 ml/min/1.73 sqM) Glucose (74-99) mg/dL POC Glucose (mg/dL) 381 H (70-110) mg/dL POC Glu Product Inspection Coordinator ID Nain Ceballos Calcium (8.4-10.2) mg/dL Magnesium (1.6-2.3) mg/dL Total Bilirubin (0.2-1.3) mg/dL AST (17-59) U/L ALT (4-49) U/L Alkaline Phosphatase (38-126) U/L Troponin I (0.000-0.034) ng/mL Total Protein (6.3-8.2) g/dL Albumin (3.5-5.0) g/dL 02/12/24 02/12/24 02/12/24 Range/Units 11:15 11:15 11:15 WBC (3.8-10.6) k/uL RBC (4.30-5.90) m/uL Hgb (13.0-17.5) gm/dL Hct (39.0-53.0) % MCV (80.0-100.0) fL MCH (25.0-35.0) pg MCHC (31.0-37.0) g/dL RDW (11.5-15.5) % Plt Count (150-450) k/uL MPV Neutrophils % % Lymphocytes % % Monocytes % % Eosinophils % % Basophils % % Neutrophils # (1.3-7.7) k/uL Lymphocytes # (1.0-4.8) k/uL Monocytes # (0-1.0) k/uL Eosinophils # (0-0.7) k/uL Basophils # (0-0.2) k/uL PT (10.0-12.5) sec INR (<1.2) APTT (22.0-30.0) sec D-Dimer 0.44 (<0.60) mg/L FEU Sodium 134 L (137-145) mmol/L Potassium 4.4 (3.5-5.1) mmol/L Chloride 102 (98-107) mmol/L Carbon Dioxide 24 (22-30) mmol/L Anion Gap 8 mmol/L BUN 22 H (9-20) mg/dL Creatinine 0.97 (0.66-1.25) mg/dL Est GFR (CKD-EPI)AfAm >90 (>60 ml/min/1.73 sqM) Est GFR (CKD-EPI)NonAf 88 (>60 ml/min/1.73 sqM) Glucose 384 H (74-99) mg/dL POC Glucose (mg/dL) (70-110) mg/dL POC Glu Product Inspection Coordinator ID Calcium 9.1 (8.4-10.2) mg/dL Magnesium 1.6 (1.6-2.3) mg/dL Total Bilirubin 0.4 (0.2-1.3) mg/dL AST 31 (17-59) U/L ALT 27 (4-49) U/L Alkaline Phosphatase 107 (38-126) U/L Troponin I <0.012 (0.000-0.034) ng/mL Total Protein 6.8 (6.3-8.2) g/dL Albumin 4.0 (3.5-5.0) g/dL Disposition Clinical Impression: Syncope Disposition: HOME SELF-CARE Condition: Stable Instructions (If sedation given, give patient instructions): Syncope (ED) Additional Instructions: Please return to the Emergency Department if symptoms worsen or any other concerns. As discussed, it is importantly follow-up with your primary care provider within the next 24 to 48 hours for follow-up. Is patient prescribed a controlled substance at d/c from ED?: No Referrals: Deyvi Hurtado MD [Primary Care Provider] - 1-2 days Time of Disposition: 13:30
[2024-02-12 11:15] LABS: Glucose,Whole Blood 381 mg/dL (70-110)
[2024-02-12] MEDS: MORPHINE SULFATE 2 MG/ML SYRINGE IVP ONE (11:26)
[2024-02-12] MEDS: SODIUM CHLORIDE 0.9% 1,000 ML IV STA (11:27)
[2024-02-12 11:39] LABS: Basophils # (A) 0.1 k/uL (0-0.2); Basophils % (A) 1 %; Eosinophils # (A) 0.2 k/uL (0-0.7); Eosinophils % (A) 2 %; HCT 42.1 % (39.0-53.0); HGB 13.6 gm/dL (13.0-17.5); Lymphocytes # (A) 1.9 k/uL (1.0-4.8); Lymphocytes % (A) 22 %; MCH 27.6 pg (25.0-35.0); MCHC 32.4 g/dL (31.0-37.0); Mean Platelet Volume 7.1; Monocytes # (A) 0.5 k/uL (0-1.0); Monocytes % (A) 6 %; Neutrophils # (A) 5.7 k/uL (1.3-7.7); Neutrophils % (A) 68 %; Platelet Count 311 k/uL (150-450); RBC 4.95 m/uL (4.30-5.90); RDW 15.5 % (11.5-15.5); WBC 8.4 k/uL (3.8-10.6)
[2024-02-12 11:44] LABS: Partial Thromboplastin Time 22.7 sec (22.0-30.0); Prothrombin Time 10.6 sec (10.0-12.5)
[2024-02-12 11:46] LABS: ALT 27 U/L (4-49); AST 31 U/L (17-59); African American GFR (CKD) >90 (>60 ml/min/1.73 sqM); Alkaline Phosphatase 107 U/L (38-126); Anion Gap 8 mmol/L; Blood Urea Nitrogen 22 mg/dL (9-20); Calcium 9.1 mg/dL (8.4-10.2); Carbon Dioxide 24 mmol/L (22-30); Chloride 102 mmol/L (98-107); Glucose 384 mg/dL (74-99); Magnesium 1.6 mg/dL (1.6-2.3); Non-African American GFR(CKD) 88 (>60 ml/min/1.73 sqM); Potassium 4.4 mmol/L (3.5-5.1); Sodium 134 mmol/L (137-145); Total Bilirubin 0.4 mg/dL (0.2-1.3); Total Protein 6.8 g/dL (6.3-8.2)
[2024-02-12] MEDS: INSULIN REGULAR 100 UNIT/ML VIAL (IV) IV ONE (12:30)
--- NOTE | 2024-02-12 12:34 | CT ---
EXAMINATION TYPE: CT brain darlineine wo con DATE OF EXAM: 02/12/2024 COMPARISON: None CLINICAL INDICATION: Male, 58 years old with history of syncope, fall; PHH, syncope, fall TECHNIQUE: CT scan of the head and cervical spine are performed without contrast. CT DLP: 1399.[address] CTDI: mGy Automated exposure control for dose reduction was used. Findings: Head CT: Ventricles, basal cisterns and sulci over convexities within normal limits and there is no mass, mass effect or shift of midline structures. No abnormal density is seen throughout the brain parenchyma and there is no acute intra or extra-axia l hemorrhage. Posterior fossa including the brainstem, fourth ventricle and cerebellar pontine angles are grossly n ormal. The intraorbital contents appear normal and symmetric. Visualized paranasal sinuses are well aerated. CT cervical spine: Craniovertebral junction relationships and prevertebral soft tissues are normal. The cervical vertebral segments are normal in height and alignment and there is no fracture subluxati on. There is moderate disc space narrowing and spondylosis consistent with moderate degenerative disease at the C5-6 level. There is mild degeneration at the C6-7 level where there is mild spondylosis and d isc space narrowing. The bony cervical canal is widely patent and there is no bony encroachment of the neural foramina. The paraspinal soft tissues unremarkable. IMPRESSION: 1. Head CT: No acute bleed or mass effect. 2. CT cervical spine: No acute trauma. Mild to moderate degenerative disease in the lower cervical sp ine. [facility], , 02/12/2024 12:32 PM
--- NOTE | 2024-02-12 12:39 | XR ---
EXAMINATION TYPE: XR chest 2V DATE OF EXAM: 02/12/2024 12:26 PM COMPARISON: None [id number] CLINICAL INDICATION: Male, 58 years old with history of syncope, , TECHNIQUE: AP and lateral views FINDINGS: The heart is borderline in size. There is focal patchy posterior basilar opacity. No pleural effusion . IMPRESSION: 1. Borderline cardiomegaly. 2. Focal patchy opacity posterior lung base on the lateral view. Correlate with symptoms to exclude p neumonia. [facility], , 02/12/2024 12:37 PM
[2024-02-12 14:16] VITALS: BP 115/80; PULSE 96; RESP 20
== END 2024-02-12 14:16 | disposition home or self-care (01) ==
LOC: EC 10:37
DX: S09.90XA Unspecified injury of head, initial encounter (principal); R55 Syncope and collapse; E11.65 Type 2 diabetes mellitus with hyperglycemia; Z87.891 Personal history of nicotine dependence; Z88.8 Allergy status to other drugs, medicaments and biological substances; W22.01XA Walked into wall, initial encounter
CPT/HCPCS: 36415; 93005; 85379; 80053; 83735; 84484; 85025; 85610; 85730; 71046; 72125; 70450; 99284; 96374; 96361; J2270

== ENCOUNTER → 2024-03-22 | Outpatient (CLI) | payer MEDICARE ==
[2024-03-23 02:42] LABS: HCT 41.3 % (39.6-50.0); HGB 14.1 g/dL (13.0-17.0); MCH 27.6 pg (27.0-32.0); MCHC 34.1 g/dL (32.0-37.0); MCV 80.8 FL (80.0-97.0); Mean Platelet Volume 9.5 FL (9.5-12.2); NRBC Per 100 WBC 0 X 10*3/uL (0.00-0.01); Platelet Count 322 X 10*3/uL (140-440); RBC 5.11 X 10*6/uL (4.40-5.60); RDW 14.2 % (11.5-14.5); WBC 8.02 X 10*3/uL (4.50-10.00)
[2024-03-23 03:47] LABS: Blood Urea Nitrogen 14.9 mg/dL (9.0-27.0); Carbon Dioxide 25.6 mmol/L (21.6-31.8); Chloride 100 mmol/L (96-109); Potassium 4.4 mmol/L (3.5-5.5); Sodium 136 mmol/L (135-145)
== END | disposition home or self-care (01) ==
LOC: LABPAT 16:42
PROVIDERS: ATTEND Internal Medicine
DX: Z01.818 Encounter for other preprocedural examination (principal)
CPT/HCPCS: 80051; 82565; 84520; 85027

== ENCOUNTER 2024-03-23 11:15 | Day surgery (SDC) | payer MEDICARE ==
[2024-03-23] MEDS ORDERED: NITROGLYCERIN SL TABS 0.4 MG TAB SUBLINGUAL PRN (11:28)
[2024-03-23] MEDS ORDERED: ASPIRIN 325 MG TAB PO STA (11:28)
[2024-03-23] MEDS ORDERED: ALPRAZolam 0.5 MG TAB PO PRN (11:28)
[2024-03-23] MEDS ORDERED: ALPRAZolam 0.25 MG TAB PO PRN (11:28)
[2024-03-23] MEDS: SODIUM CHLORIDE 0.9% 1,000 ML in EMPTY BAG 1 BAG IV SCH (11:43)
[2024-03-23 11:45] VITALS: TEMP 97.8
[2024-03-23] MEDS: IV FLUID CONTINUATION 1,000 ML IV ONE (11:45)
[2024-03-23 11:46] LABS: Glucose,Whole Blood 277 mg/dL (70-110)
[2024-03-23] MEDS: INSULIN ASPART (NovoLOG) 100 UNIT/ML VIAL SQ SCH (12:21)
[2024-03-23] MEDS: MIDAZOLAM 2 MG/2 ML VIAL IVP ONE (12:55)
[2024-03-23] MEDS: fentaNYL (PF) 50 MCG/ML 2 ML AMP IVP ONE (12:55)
[2024-03-23] MEDS: LIDOCAINE 1% INJ 10MG/ML (20 ML MDV) SQ ONE (12:56)
[2024-03-23] MEDS: HEPARIN SODIUM,PORCINE 10,000 UNIT in SODIUM CHLORIDE 0.9% 1,000 ML IRRIGATION ONE (12:57)
[2024-03-23] MEDS: VERAPAMIL SYRINGE (5 MG/10 ML) INTRAARTER ONE (12:57)
[2024-03-23] MEDS: HEPARIN SODIUM,PORCINE (1 ML) 2,500 UNIT in SODIUM CHLORIDE 0.9% 250 ML IRRIGATION ONE (12:58)
[2024-03-23] MEDS: HEPARIN SODIUM 1,000 UN/ML (10ML VL) IVP ONE (13:17)
[2024-03-23 13:19] LABS: O2 Sat Blood Gas 59.5 %
[2024-03-23 13:20] LABS: O2 Sat Blood Gas 53.7 %
[2024-03-23 13:21] LABS: O2 Sat Blood Gas 92.1 %
[2024-03-23] MEDS: IOPAMIDOL-370 100ML BTL INJ ONE (13:39)
[2024-03-23 14:11] VITALS: RESP 18
[2024-03-23 17:03] VITALS: BP 129/82; PULSE 84
--- NOTE | 2024-03-30 14:32 | P.CARDCATH ---
Description of Procedure: PROCEDURES PERFORMED: Left and right heart catheterization, bilateral coronary angiography, ultrasound guided arterial access, iFR diagonal 1 branch INDICATION: Pulmonary hypertension with prior PE, increasing dyspnea on exertion concerning for unstable angina, CAD CONSENT:The risks, benefits and alternative therapies for the above-mentioned procedure and for both sedation/analgesia as well as necessary blood product administration, if indicated, as they pertain to this patient were discussed with the patient. The patient has indicated understanding and acceptance of the risks and procedures discussed. PROCEDURE: After the risks, benefits and alternatives of the above mentioned procedure explained in detail with the patient, informed consent was obtained. Patient was taken to the catheterization lab and prepped and draped in usual fashion. Ultrasound guidance was used to assess for arterial access. 1% lidocaine was used to anesthetize the right radial artery. A 6-Croatian sheath was placed in the right radial artery and right brachial vein using modified Seldinger technique and ultrasound guidance. A 6-[place] catheter was placed into the right atrium, right ventricle, PA and PCWP positions and pressure measurements and oxygen saturations were obtained. Thermodilution was performed. Left coronary angiography was performed with a 5-Croatian JL 3.5 catheter and right coronary angiography was performed with a 5-Croatian FR5 catheter in various views. A 5-[place] FR5 catheter was inserted into the left ventricle and pressure measurements were obtained. The decision was made to perform functional assessment of the diagonal branch and the circumflex. Heparin was given. A 0.014 pressure wire was advanced into the left main and normalized. It was then advanced into the diagonal 1 branch and iFR was performed and was abnormal at 0.81. It was then advanced into the proximal circumflex and iFR was performed and was normal at 0.96. The right radial sheath was removed and a TR band was placed with hemostasis achieved. The patient tolerated the procedure well. Patient was transported back to the post catheterization holding area in stable condition. Conscious Sedation: Patient was monitored under the direct supervision of myself for conscious sedation using Versed and fentanyl for a total duration of 31 minutes HEMODYNAMICS: Aorta: 98/67 LV: 105/1, LVEDP 7 PCWP: 11 PA: 82/33 RV: 78/5 RA: 11 RA oxygen saturation: 54% PA oxygen saturation: 60% Right radial artery oxygen saturation: 92% Cardiac output by Antionette: 4.2 L/m Cardiac index by Antionette: 2.0 L/m/m Cardiac output by thermodilution: 4.5 L/m Cardiac index by thermodilution: 2.1 L/m/m SELECTIVE CORONARY ARTERIOGRAPHY: LEFT MAIN: The left main is a large caliber vessel which bifurcates into the LAD and circumflex. There is no significant stenosis. LEFT ANTERIOR DESCENDING CORONARY ARTERY: LAD is a large caliber vessel which wraps around to the apex. There is proximal LAD 20-30% stenosis. Diagonal 1 is small to moderate caliber and has a ostial 70-80% stenosis. Otherwise there are mild luminal irregularities. LEFT CIRCUMFLEX CORONARY ARTERY: Left circumflex is a moderate caliber vessel with a proximal 40-50% stenosis and otherwise mild luminal irregularities. RIGHT CORONARY ARTERY: The right coronary artery is a large caliber vessel which gives off a PDA and PLV branch and is the dominant vessel. There is a mid RCA 30% stenosis and otherwise mild luminal irregularities FINAL IMPRESSION: 1. CAD as described above including 30% RCA stenosis, ostial diagonal 70-80%, LAD 20-30%, circumflex 40-50% stenosis 2. Normal left sided filling pressures 3. Pulmonary hypertension likely group 4 related to prior PE 4. Low CO/CI likely related to RV failure, pulmonary hypertension 5. Abnormal iFR of diagonal 1 branch however at the origin of the diagonal PLAN: 1. Aggressive risk factor modification per most recent ACC/AHA guidelines. 2. Severe pulmonary hypertension likely related to prior PE. Recommend pulmonary hypertension specialist. 3. Treat diagonal branch medically given involves the takeoff into the LAD.
== END 2024-03-23 17:02 | disposition home or self-care (01) ==
LOC: CATHCVL 11:15
PROVIDERS: ATTEND Internal Medicine
DX: I27.20 Pulmonary hypertension, unspecified (principal); I25.10 Atherosclerotic heart disease of native coronary artery without angina pectoris; I10 Essential (primary) hypertension; E78.5 Hyperlipidemia, unspecified; E11.9 Type 2 diabetes mellitus without complications; Z79.4 Long term (current) use of insulin; Z79.899 Other long term (current) drug therapy; Z86.711 Personal history of pulmonary embolism
CPT/HCPCS: 93460; 93799; 85018; 82810; 99152; 99153; C1769 ×2; C1894; C1751; J2250; J1644 ×3; J2003; J3010; Q9967

== ENCOUNTER 2024-03-26 01:02 | Emergency (ER) | payer MEDICARE ==
[2024-03-26 01:17] VITALS: TEMP 98.2
--- NOTE | 2024-03-26 01:35 | ED ---
Eye Problem HPI - General Chief complaint: Eye Problems Stated complaint: right eye pain Time Seen by Provider: 03/26/24 01:33 Source: patient, RN notes reviewed Mode of arrival: wheelchair - History of Present Illness Initial comments: 58 year old male presenting for right eye pain x 1 hour. States he woke up from a nap and has felt a foreign body sensation in right eye with light sensitivity. States he was sawing wood yesterday but has not had symptoms until one hour ago. Denies vision changes. Last tetanus within last 5 years. - Related Data Home Medications Medication Instructions Recorded Confirmed Empagliflozin [Jardiance] 25 mg PO DAILY 09/01/23 03/23/24 Lisinopril-Hctz 20-12.5 mg 1 tab PO DAILY 09/01/23 03/23/24 [Zestoretic 20-12.5] Aspirin 81 mg PO DAILY 03/23/24 03/23/24 Insulin Glargine,Hum.rec.anlog 10 units SQ DAILY 03/23/24 03/23/24 [Tolauren Solostcurt] Isosorbide Mononitrate ER [Imdur] 30 mg PO DAILY 03/23/24 03/23/24 Metoprolol Tartrate 25 mg PO BID 03/23/24 03/23/24 Allergies Allergy/AdvReac Type Severity Reaction Status Date / Time metformin AdvReac Nausea & Verified 03/26/24 01:17 Vomiting & Diarrhea Wmtpbxw-EEU-HyI Reductase AdvReac liver Verified 03/26/24 01:17 Inhibitor problems [Alvolwk-Duv-Ksc Reductase Inhibitor] Review of Systems ROS Statement: Those systems with pertinent positive or pertinent negative responses have been documented in the HPI. ROS Other: All systems not noted in ROS Statement are negative. Past Medical History Past Medical History: Heart Failure, Diabetes Mellitus, GERD/Reflux, Hyp ertension, Pulmonary Embolus (PE), Syncope Additional Past Medical History / Comment(s): occ. pain with swallowing at times, hiatal hernia, dry skin, hx kidney stones, non healing foot ulcers History of Any Multi-Drug Resistant Organisms: MRSA Date of last positivie culture/infection: 08/02/23 MDRO Source:: Right Foot Past Surgical History: Orthopedic Surgery Additional Past Surgical History / Comment(s): cystoscopy/stent in urethra, olga carpal tunnel, trigger finger left thumb, rt thumb surgery, shoulder surgery Past Anesthesia/Blood Transfusion Reactions: No Reported Reaction Additional Past Anesthesia/Blood Transfusion Reaction / Comment(s): dizziness Past Psychological History: No Psychological Hx Reported Smoking Status: Former smoker Past Alcohol Use History: None Reported Past Drug Use History: Marijuana - Past Family History Mother Family Medical History: Hyperlipidemia Father Family Medical History: Diabetes Mellitus General Exam General appearance: alert, in no apparent distress Head exam: Present: atraumatic, normocephalic, normal inspection Eye exam: Present: PERRL, EOMI, conjunctival injection (right conjunctival injection), other (Fluorescein stain negative for obvious abrasions or ulcerations. Visual acuity 20/50 left, 20/100 right.). Absent: scleral icterus, periorbital swelling Pupils: Present: normal accommodation ENT exam: Present: normal exam, mucous membranes moist Neurological exam: Present: alert, oriented X3 Psychiatric exam: Present: normal affect, normal mood Skin exam: Present: warm, dry, intact, normal color. Absent: rash Course Vital Signs 03/26/24 03/26/24 01:13 03:03 Temperature 98.2 F Pulse Rate 92 85 Respiratory 20 16 Rate Blood Pressure 140/94 149/89 O2 Sat by Pulse 100 100 Oximetry Medical Decision Making - Medical Decision Making Was pt. sent in by a medical professional or institution ([facility]ARIKA Hagen, [employer], urgent care, hospital, or [place] [facility] care facility...) When possible be specific @ -No Did you speak to anyone other than the patient for history (EMS, parent, family, police, friend...)? What history was obtained from this source @ -No Did you review nursing and triage notes (agree or disagree)? Why? @ -I reviewed and agree with nursing and triage notes Were old charts reviewed (outside hosp., previous admission, EMS record, old EKG, old radiological studies, urgent care reports/EKG's, [place] health care facility records)? Report findings @ -No old charts were reviewed Differential Diagnosis (chest pain, altered mental status, abdominal pain women, abdominal pain men, vaginal bleeding, weakness, fever, dyspnea, syncope, headache, dizziness, GI bleed, back pain, seizure, CVA, palpatations, mental health, musculoskeletal)? @ -Corneal abrasion, corneal ulceration, ocular foreign body, conjunctivitis EKG interpreted by me (3pts min.). @ -None X-rays interpreted by me (1pt min.). @ -None done CT interpreted by me (1pt min.). @ -None done U/S interpreted by me (1pt. min.). @ -None done What testing was considered but not performed or refused? (CT, X-rays, U/S, labs)? Why? @ -None What meds were considered but not given or refused? Why? @ -None Did you discuss the management of the patient with other professionals (professionals i.e. DrKourtney, PA, [employer], lab, RT, psych nurse, social sciences department chair, toilet and laundry soap supervisor, teacher, chief sustainability officer, case investigator)? Give summary @ -No Was smoking cessation discussed for >3mins.? @ -No Was critical care preformed (if so, how long)? @ -No Were there social determinants of health that impacted care today? How? (Homelessness, low income, unemployed, alcoholism, drug addiction, transportation, low edu. Level, literacy, decrease access to med. care, fdc, rehab)? @ -No Was there de-escalation of care discussed even if they declined (Discuss DNR or withdrawal of care, Hospice)? DNR status @ -No What co-morbidities impacted this encounter? (DM, HTN, Smoking, COPD, CAD, Cancer, CVA, ARF, Chemo, Hep., AIDS, mental health diagnosis, sleep apnea, morbid obesity)? @ -None Was patient admitted / discharged? Hospital course, mention meds given and route, prescriptions, significant lab abnormalities, going to OR and other pertinent info. @ -Discharge. 58-year-old male presenting with right eye pain. Describes foreign body sensation, admits to sawing wood yesterday. Tetanus was updated. Visual acuity 20/100 right, 20/50 left. Fluorescein stain negative for obvious ulcerations or abrasions. Right eye was thoroughly flushed with normal saline with no obvious foreign body removal however patient reports improvement of symptoms. Discussed diagnosis of corneal abrasion, Discharged with ofloxacin and erythromycin drops. Advised close follow-up with ophthalmology in 1 to 3 days. Appropriate return precautions/supportive care discussed. Case was discussed with my ED attending Dr. Sher Undiagnosed new problem with uncertain prognosis? @ -No Drug Therapy requiring intensive monitoring for toxicity (Heparin, Nitro, Insulin, Cardizem)? @ -No Were any procedures done? @ -No Diagnosis/symptom? @ -Right corneal abrasion Acute, or Chronic, or Acute on Chronic? @ -Acute Uncomplicated (without systemic symptoms) or Complicated (systemic symptoms)? @ -Uncomplicated Side effects of treatment? @ -No Exacerbation, Progression, or Severe Exacerbation? @ -No Poses a threat to life or bodily function? How? (Chest pain, [place], [place], pneumonia, PE, COPD, DKA, ARF, appy, cholecystitis, CVA, Diverticulitis, Homicidal, Suicidal, threat to staff... and all critical care pts) @ -No Disposition Clinical Impression: Right corneal abrasion Disposition: HOME SELF-CARE Condition: Stable Instructions (If sedation given, give patient instructions): Corneal Abrasion (ED) Additional Instructions: Use ofloxacin drops and erythromycin ointment as prescribed. Follow-up with it applications analyst in 1 to 3 days. Please return to the Emergency Department if symptoms worsen or any other concerns. Is patient prescribed a controlled substance at d/c from ED?: No Referrals: Deyvi Hurtado MD [Primary Care Provider] - 1-2 days William Yadav MD [STAFF PHYSICIAN] - 1-2 days Time of Disposition: 02:57
[2024-03-26] MEDS: PROPARACAINE 0.5% OPHTH DROPS 15 ML BTL RIGHT EYE STA (01:39)
[2024-03-26] MEDS: FLUORESCEIN STRIPS 1 MG STRIP RIGHT EYE ONE (01:39)
[2024-03-26] MEDS: ERYTHROMYCIN 5 MG/GM OPHTH OINT 3.5 GM TUBE RIGHT EYE SCH (02:20)
[2024-03-26] MEDS: OFLOXACIN 0.3% OPHTH DROPS 5 ML BOTTLE RIGHT EYE SCH (02:20)
[2024-03-26 03:26] VITALS: BP 149/89; PULSE 85; RESP 16
== END 2024-03-26 03:03 | disposition home or self-care (01) ==
LOC: EC 01:02
DX: S05.01XA Injury of conjunctiva and corneal abrasion without foreign body, right eye, initial encounter (principal); Z87.891 Personal history of nicotine dependence; Z88.8 Allergy status to other drugs, medicaments and biological substances; Z88.6 Allergy status to analgesic agent; W45.8XXA Other foreign body or object entering through skin, initial encounter
CPT/HCPCS: 99283

== ENCOUNTER → 2024-04-06 | Outpatient (CLI) | payer MEDICARE ==
--- NOTE | 2024-04-06 15:23 | XR ---
EXAMINATION TYPE: XR chest 2V DATE OF EXAM: 04/06/2024 12:44 PM COMPARISON: [id number] CLINICAL INDICATION: Male, 58 years old with shortness of breath, history of Z86.711 PERSONAL HISTORY OF PULMONARY EMBOLISM, , TECHNIQUE: Frontal and lateral views FINDINGS: Heart upper limits of normal in size. Aorta and pulmonary vasculature within normal limits. No consol idation or pleural effusion. IMPRESSION: Borderline heart size. No acute process seen. [facility], Workstation: [email or web address], 04/06/2024 3:20 PM
--- NOTE | 2024-04-06 15:34 | NM ---
EXAMINATION TYPE: NM pul vent and perfuse DATE OF EXAM: 04/06/2024 CLINICAL INDICATION: Male, 58 years old with history of Z86.711 PERSONAL HISTORY OF PULMONARY EMBOLI SM; COMPARISON: Radiographs same day TECHNIQUE: Utilizing inhalation of 1365.3 mCi Tc 99m DTPA aerosol and intravenous injection of 4.9 m Ci of Tc 99m MAA, ventilation and perfusion images are acquired post injection in multiple projection s. FINDINGS: Normal radiotracer distribution is noted in the lungs. There is no evidence of mismatched defects. IMPRESSION: Very low probability for pulmonary embolus. [facility], Workstation: [email or web address], 04/06/2024 3:32 PM
== END | disposition home or self-care (01) ==
LOC: RADNMMAIN 12:12
PROVIDERS: ATTEND Internal Medicine
DX: Z86.711 Personal history of pulmonary embolism (principal)
CPT/HCPCS: 71046; 78582; A9540; A9567

== ENCOUNTER 2024-05-30 02:50 | Inpatient (IN) | payer MEDICARE ==
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
[2024-05-30 04:24] LABS: Basophils % (A) 0 %; Eosinophils # (A) 0.3 k/uL (0-0.7); Eosinophils % (A) 3 %; HCT 40.6 % (39.0-53.0); HGB 12.5 gm/dL (13.0-17.5); Hypochromasia Marked; Lymphocytes # (A) 1.4 k/uL (1.0-4.8); Lymphocytes % (A) 12 %; MCH 25.8 pg (25.0-35.0); MCHC 30.8 g/dL (31.0-37.0); MCV 83.7 fL (80.0-100.0); Mean Platelet Volume 7.5; Monocytes # (A) 0.6 k/uL (0-1.0); Monocytes % (A) 5 %; Neutrophils # (A) 8.8 k/uL (1.3-7.7); Neutrophils % (A) 78 %; Platelet Count 327 k/uL (150-450); RBC 4.85 m/uL (4.30-5.90); WBC 11.2 k/uL (3.8-10.6)
[2024-05-30 05:01] LABS: ALT 19 U/L (4-49); AST 35 U/L (17-59); African American GFR (CKD) >90 (>60 ml/min/1.73 sqM); Albumin 3.9 g/dL (3.5-5.0); Alkaline Phosphatase 113 U/L (38-126); Amylase 55 U/L (30-110); Anion Gap 10 mmol/L; Blood Urea Nitrogen 26 mg/dL (9-20); Calcium 8.7 mg/dL (8.4-10.2); Carbon Dioxide 22 mmol/L (22-30); Chloride 89 mmol/L (98-107); Lipase 297 U/L (23-300); Non-African American GFR(CKD) >90 (>60 ml/min/1.73 sqM); Potassium 5.9 mmol/L (3.5-5.1); Sodium 121 mmol/L (137-145); Total Bilirubin 0.8 mg/dL (0.2-1.3); Total Protein 7.6 g/dL (6.3-8.2)
[2024-05-30 05:14] LABS: Glucose 825 mg/dL (74-99)
[2024-05-30 05:17] LABS: Appearance,Urine Clear (Clear); Bilirubin,Urine Negative (Negative); Blood,Urine Negative (Negative); Color,Urine Colorless; Glucose,Urine (UA) 4+ (Negative); Ketones,Urine Negative (Negative); Leukocyte Esterase,Urine Negative (Negative); Nitrite,Urine Negative (Negative); PH, Urine 6.5 (5.0-8.0); Protein,Urine Negative (Negative); Specific Gravity,Urine 1.024 (1.001-1.035); Urobilinogen,Urine <2.0 mg/dL (<2.0)
[2024-05-30] MEDS: ACETAMINOPHEN TAB 500 MG TAB PO STA (05:34)
[2024-05-30] MEDS ORDERED: NALOXONE 0.4 MG/ML 1 ML VIAL IV PRN (05:41)
[2024-05-30] MEDS: INSULIN REGULAR 100 UNIT/ML VIAL (IV) IV ONE (05:52)
[2024-05-30] MEDS: SODIUM CHLORIDE 0.9% 1,000 ML IV ONE (05:53)
[2024-05-30] MEDS ORDERED: DEXTROSE 50% SYRINGE 50 ML IVP PRN ×6 (05:59→15:43)
[2024-05-30 06:51] LABS: Glucose,Whole Blood >600 mg/dL (70-110)
[2024-05-30] MEDS: INSULIN LISPRO (HumaLOG) 100 UNIT/ML 10 mL VL SQ SCH ×3 (06:54→21:00)
[2024-05-30 08:01] LABS: Potassium 4.9 mmol/L (3.5-5.1)
[2024-05-30 08:07] LABS: Glucose,Whole Blood 494 mg/dL (70-110)
[2024-05-30 08:17] LABS: African American GFR (CKD) >90 (>60 ml/min/1.73 sqM); Anion Gap 11 mmol/L; Blood Urea Nitrogen 26 mg/dL (9-20); Carbon Dioxide 24 mmol/L (22-30); Chloride 91 mmol/L (98-107); Non-African American GFR(CKD) >90 (>60 ml/min/1.73 sqM); Phosphorus 4.4 mg/dL (2.5-4.5); Sodium 126 mmol/L (137-145)
[2024-05-30 08:26] LABS: Glucose 599 mg/dL (74-99)
[2024-05-30] MEDS: SODIUM CHLORIDE 0.9% 1,000 ML IV SCH ×3 (08:56→21:02)
[2024-05-30] MEDS: INSULIN REGULAR 100 UNIT in SODIUM CHLORIDE 0.9% 100 ML IV SCH (08:57)
[2024-05-30] MEDS: INSULIN REGULAR BOLUS (FROM DRIP BAG) IV ONE (08:59)
[2024-05-30] MEDS: HYDROmorphone 1 MG/ML 1 ML SYRINGE IVP STA (09:53)
[2024-05-30] MEDS: CYCLOBENZAPRINE 10 MG TAB PO PRN (09:55)
[2024-05-30 10:03] LABS: Influenza A Not Detected (Not Detectd); Influenza B Not Detected (Not Detectd); RSV Not Detected (Not Detectd)
[2024-05-30 10:12] LABS: Glucose,Whole Blood 108 mg/dL (70-110)
[2024-05-30 10:41] LABS: Glucose,Whole Blood 93 mg/dL (70-110)
--- NOTE | 2024-05-30 10:57 | P.CONS ---
History of Present Illness - Reason for Consult Consult date: 05/30/24 wound care - History of Present Illness This is a 58-year-old patient with past medical history significant for diabetes who is noncompliant currently being seen in the wound care center for nonhealing ulceration to the right plantar foot and right plantar foot first metatarsal head. Patient was seen on Thursday in the wound care center. We have been utilizing absorptive silver to the site. Original cause of wound was Gradually Appeared. The date acquired was: 11/08/2023. The wound has been in treatment 28 weeks. The wound is currently classified as a Grade 2 wound with etiology of Diabetic Wound/Ulcer of the Lower Extremity and is located on the Right,Medial,Plantar Foot. The wound measures 0.6cm length x 0.6cm width x 0.3cm depth; 0.283cm^2 area and 0.085cm^3 volume. There is Fat Layer (Subcutaneous Tissue) exposed. There is no tunneling or undermining noted. There is a small amount of serous drainage noted. The wound margin is thickened. There is small (1-33%) red granulation within the wound bed. There is a large (67-100%) amount of necrotic tissue within the wound bed including Adherent Slough. The periwound skin appearance exhibited: Callus, Scarring, Dry/Scaly. The periwound skin appearance did not exhibit: Crepitus, Excoriation, Induration, Rash, Maceration, Atrophie Hilton, Cyanosis, Ecchymosis, Hemosiderin Staining, Mottled, Pallor, Rubor, Erythema. Periwound temperature was noted as No Abnormality. The periwound has tenderness on palpation. Original cause of wound was Gradually Appeared. The date acquired was: 03/25/2024. The wound has been in treatment 7 weeks. The wound is currently classified as a Grade 2 wound with etiology of Diabetic Wound/Ulcer of the Lower Extremity and is located on the Right,Plantar Metatarsal head first. The wound measures 2.3cm length x 2.5cm width x 0.6cm depth; 4.516cm^2 area and 2.71cm^3 volume. There is bone and Fat Layer (Subcutaneous Tissue) exposed. There is no tunneling or undermining noted. There is a medium amount of serosanguineous drainage noted. The wound margin is thickened. There is large (67-100%) red, pink granulation within the wound bed. There is a small (1-33%) amount of necrotic tissue within the wound bed including Adherent Slough. The periwound skin appearance exhibited: Callus, Scarring. The periwound skin appearance did not exhibit: Crepitus, Excoriation, Induration, Rash, Dry/Scaly, Maceration, Atrophie Melissa, Cyanosis, Ecchymosis, Hemosiderin Staining, Mottled, Pallor, Rubor, Erythema. Periwound temperature was noted as No Abnormality. The periwound has tenderness on palpation. Review Of Systems: Constitutional: No fever, no chills, no night sweats. No weight change. No weakness, fatigue or lethargy. No daytime sleepiness. Integumentary:reports wounds, no lesions. No rash or pruritus. No unusual bruising. No change in hair or nails. Physical exam: General Appearance: Alert, cooperative, no distress, appears stated age. Skin: See HPI all other Skin color, texture, tugor normal, no rashes or lesions. Neurologic: Alert oriented x3 Assessment: 1. 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 Diabetic foot ulcer Plan: 1. Apply absorptive silver, saline moist gauze, dry gauze, rolled gauze and secure with paper tape. Change Thursday. Patient will return to the wound care center June 03 at 10 AM. Continue to offload utilizing a walker. Past Medical History Past Medical History: Heart Failure, Diabetes Mellitus, GERD/Reflux, Hypertension, Pulmonary Embolus (PE), Syncope Additional Past Medical History / Comment(s): occ. pain with swallowing at times, hiatal hernia, dry skin, hx kidney stones, non healing foot ulcers History of Any Multi-Drug Resistant Organisms: MRSA, VRE Year Discovered:: 04/07/24-VRE; 04/07/24-MRSA MDRO Source:: VRE-rt toe; MRSA-Rt Foot Past Surgical History: Orthopedic Surgery Additional Past Surgical History / Comment(s): cystoscopy/stent in urethra, olga carpal tunnel, trigger finger left thumb, rt thumb surgery, shoulder surgery Past Anesthesia/Blood Transfusion Reactions: No Reported Reaction Additional Past Anesthesia/Blood Transfusion Reaction / Comm: dizziness Past Psychological History: No Psychological Hx Reported Smoking Status: Former smoker Past Alcohol Use History: None Reported Past Drug Use History: Marijuana - Past Family History Mother Family Medical History: Hyperlipidemia Father Family Medical History: Diabetes Mellitus Medications and Allergies Home Medications Medication Instructions Recorded Confirmed Type Aspirin 81 mg PO DAILY 03/23/24 05/30/24 History Isosorbide Mononitrate ER [Imdur] 30 mg PO DAILY 03/23/24 05/30/24 History Metoprolol Tartrate 25 mg PO BID 03/23/24 05/30/24 History Apixaban [Eliquis] 5 mg PO BID 04/16/24 05/30/24 History Insulin Aspart [NovoLOG Flexpen] 1 - 10 units SQ AC-TID 04/16/24 05/30/24 History Tirzepatide [Mounjaro] 2.5 mg SQ ACEVEDO 04/16/24 05/30/24 History metFORMIN HCL 1,000 mg PO BID 04/16/24 05/30/24 History DAPTOmycin [Cubicin] 600 mg IV DAILY #40 each 04/20/24 05/30/24 Rx cefTAZidime [Fortaz] 2 gm IM Q8H #120 each 04/20/24 05/30/24 Rx metroNIDAZOLE [Flagyl] 500 mg PO TID #90 tab 04/20/24 05/30/24 Rx Insulin Glargine,Hum.rec.anlog 15 units SQ DAILY 05/30/24 05/30/24 History [Lantus Solostar Pen] Allergies Allergy/AdvReac Type Severity Reaction Status Date / Time dapagliflozin [From [facility]] Allergy Rash/Hives Verified 05/30/24 02:56 metformin AdvReac Nausea & Verified 05/30/24 02:56 Vomiting & Diarrhea Zhodjbr-OQC-OfY Reductase AdvReac liver Verified 05/30/24 02:56 Inhibitor problems [Uvudnvk-Wnz-Trp Reductase Inhibitor] Physical Exam Vitals: Vital Signs Temp Pulse Resp BP Pulse Ox 05/30/24 08:47 103 H 20 134/98 96 05/30/24 05:31 98 17 153/89 99 05/30/24 02:52 97.9 F 105 H 18 179/98 98 Intake and Output 05/29/24 05/30/24 05/30/24 22:59 06:59 14:59 Intake Total 12.092 Balance 12.092 Intake: Intake, IV Titration 12.092 Amount Insulin Regular 100 unit 12.092 In Sodium Chloride 0.9% 100 ml @ 0.1 UNITS/KG/HR 9.804 mls/hr IV .[id number] [facility] Rx#:[id number] Other: Weight 97.069 kg Results CBC & Chem 7: 05/30/24 04:04 05/30/24 07:24 Labs: Abnormal Lab Results - Last 24 Hours (Table) 05/30/24 05/30/24 05/30/24 Range/Units 04:04 04:04 05:12 WBC 11.2 H (3.8-10.6) k/uL Hgb 12.5 L (13.0-17.5) gm/dL MCHC 30.8 L (31.0-37.0) g/dL Neutrophils # 8.8 H (1.3-7.7) k/uL Sodium 121 L (137-145) mmol/L Potassium 5.9 H (3.5-5.1) mmol/L Chloride 89 L (98-107) mmol/L BUN 26 H (9-20) mg/dL Creatinine 0.65 L (0.66-1.25) mg/dL Glucose 825 H* (74-99) mg/dL POC Glucose (mg/dL) (70-110) mg/dL Urine Glucose (UA) 4+ H (Negative) 05/30/24 05/30/24 05/30/24 Range/Units 06:49 07:24 08:06 WBC (3.8-10.6) k/uL Hgb (13.0-17.5) gm/dL MCHC (31.0-37.0) g/dL Neutrophils # (1.3-7.7) k/uL Sodium 126 L (137-145) mmol/L Potassium (3.5-5.1) mmol/L Chloride 91 L (98-107) mmol/L BUN 26 H (9-20) mg/dL Creatinine (0.66-1.25) mg/dL Glucose 599 H* (74-99) mg/dL POC Glucose (mg/dL) >600 H* 494 H (70-110) mg/dL Urine Glucose (UA) (Negative) Assessment and Plan (1) Non-pressure chronic ulcer of other part of right foot with fat layer exposed Current Visit: No Status: Acute Code(s): L97.512 - NON-PRS CHRONIC ULCER OTH PRT RIGHT FOOT W FAT LAYER EXPOSED SNOMED Code(s): 94774262801780377 (2) Diabetic ulcer of right foot Current Visit: No Status: Acute Code(s): E11.621 - TYPE 2 DIABETES MELLITUS WITH FOOT ULCER; L97.519 - NON-PRS CHRONIC ULCER OTH PRT RIGHT FOOT W UNSP SEVERITY SNOMED Code(s): 476891278
[2024-05-30 11:14] LABS: Glucose,Whole Blood 99 mg/dL (70-110)
[2024-05-30 11:56] LABS: Glucose,Whole Blood 89 mg/dL (70-110)
[2024-05-30] MEDS: MAGNESIUM SULFATE-D5W PMX 1 GM in DEXTROSE/WATER 1 100ML.BAG IVPB SCH (12:00)
[2024-05-30 12:49] LABS: African American GFR (CKD) >90 (>60 ml/min/1.73 sqM); Anion Gap 10 mmol/L; Blood Urea Nitrogen 24 mg/dL (9-20); Carbon Dioxide 26 mmol/L (22-30); Chloride 98 mmol/L (98-107); Glucose 90 mg/dL (74-99); Non-African American GFR(CKD) >90 (>60 ml/min/1.73 sqM); Phosphorus 4.8 mg/dL (2.5-4.5); Potassium 4.4 mmol/L (3.5-5.1); Sodium 134 mmol/L (137-145)
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
[2024-05-30 13:10] LABS: Glucose,Whole Blood 208 mg/dL (70-110)
--- NOTE | 2024-05-30 13:17 | US ---
EXAMINATION TYPE: US kidneys/renal and bladder DATE OF EXAM: 05/30/2024 COMPARISON: CT abdomen and pelvis March 12, 2022 CLINICAL INDICATION: Male, 58 years old with history of flank pain, groin pain; Flank pain TECHNIQUE: Grayscale imaging of the bilateral kidneys and urinary bladder: FINDINGS: EXAM MEASUREMENTS: Right Kidney: 9.4 x 4.8 x 5.8 cm Left Kidney: 9.5 x 5.8 x 4.8 cm Right Kidney: wnl, no evidence for hydronephrosis, mass or renal calculus. Left Kidney: wnl, no evidence for hydronephrosis, mass or renal calculus. Bladder: wnl Bilateral Jets seen: Yes There is no evidence for hydronephrosis at this point in time. No nephrolithiasis is seen. No jewel s are identified. The urinary bladder is anechoic. Exam limited by body habitus and bowel gas IMPRESSION: Suboptimal study but no hydronephrosis seen bilaterally or source of patient's pain identified. [facility], , 05/30/2024 1:15 PM
[2024-05-30] MEDS: cefTAZidime 1 GM VIAL IM SCH (14:13)
[2024-05-30] MEDS ORDERED: HYDROcodone/APAP 5-325MG 1 EACH TAB PO PRN (14:37)
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
[2024-05-30] MEDS: METOCLOPRAMIDE 5 MG/ML 2 ML VIAL IVP SCH (15:10)
[2024-05-30] MEDS: PANTOPRAZOLE 40 MG/10 ML VIAL IVP SCH (15:13)
[2024-05-30 15:51] LABS: Glucose,Whole Blood 248 mg/dL (70-110)
[2024-05-30] MEDS: D5-0.45% NACL WITH KCL 20MEQ/L 1,000 ML IV SCH (16:26)
[2024-05-30] MEDS: metroNIDAZOLE 500 MG TAB PO SCH (16:58)
[2024-05-30] MEDS: ACETAMINOPHEN TAB 325 MG TAB PO PRN (16:58)
[2024-05-30] MEDS: INSULIN GLARGINE (LANTUS) 100 UNIT/ML SYR SQ SCH (17:01)
[2024-05-30 17:52] LABS: Glucose,Whole Blood 271 mg/dL (70-110)
--- NOTE | 2024-05-30 19:04 | CT ---
EXAMINATION TYPE: CT sinus w con DATE OF EXAM: 05/30/2024 5:58 PM COMPARISON: 02/12/2024. CLINICAL INDICATION: Male, 58 years old with history of severe sinus pain, hx of VRE, MRSA, diabetes; , Severe sinus pain. TECHNIQUE: Multiple thin axial images were obtained through the paranasal sinuses. Additional coronal and sagittal reformatted images were submitted for evaluation. Contrast used:100 ml none Oral contrast used: none CT DLP: 783.8 mGycm, Automated exposure control for dose reduction was used. FINDINGS: Frontal sinuses: Normally developed with scattered mild mucosal thickening. Frontal Recess: Partially obstructed from mucosal thickening. Maxillary Sinuses: Normally developed with scattered mild mucosal thickening. Maxillary Infundibula([facility]): Mild narrowing due to mucosal thickening bilaterally., No Vineet cells id entified. Ethmoid sinuses: Normally developed with scattered mild mucosal thickening. Ethmoidal notch: Protecte d and abutting the lateral lamina. Sphenoid sinuses: Normally developed and aerated. There is sellar sphenoid sinus pneumatization with out evidence of dehiscence. No dehiscence of carotid canal. No evidence of optic nerve dehiscence wi thin the sphenoid sinus. No evidence of Onodi cells. Sphenoethmoidal recesses: Partially obstructed from mucosal thickening.. Nasal septum: Deviated leftward inferiorly near the left inferior turbinate. Nasal Turbinates: Within normal limits. Asymmetric Mucosal thickening of the right middle and inferio r turbinates Mastoid air cells & middle ears: The air cells are clear. The middle ears are grossly unremarkable. Modified Soft tissues & Brain: Partially seen without gross abnormality. Globes are intact. Other: Cribriform plate demonstrates symmetric Keros classification type 2 cribriform plate. No evidence of bony dehiscence of skull base. Lamina papyracea is intact without evidence of remote orbital fracture or orbital prolapse into the e thmoid sinus. IMPRESSION: 1. Mild paranasal sinus disease. Significant mucosal sinus disease. 2. The ostiomeatal units, frontonasal and sphenoethmoidal recesses are partially obstructed from muco charlie thickening. [facility], , 05/30/2024 7:02 PM
[2024-05-30 20:33] LABS: Glucose,Whole Blood 226 mg/dL (70-110)
[2024-05-30] MEDS ORDERED: APIXABAN 5 MG TAB PO SCH (21:00)
[2024-05-30] MEDS: METOPROLOL TARTRATE 25 MG TAB PO SCH (21:01)
[2024-05-30] MEDS: KETOROLAC 15 MG/ML 1 ML VIAL IVP SCH (21:01)
[2024-05-31 06:33] LABS: Glucose,Whole Blood 204 mg/dL (70-110)
[2024-05-31] MEDS: INSULIN LISPRO (HumaLOG) 100 UNIT/ML 10 mL VL SQ SCH ×2 (07:39→09:08)
[2024-05-31 08:17] LABS: Basophils # (A) 0.08 X 10*3/uL (0.00-0.10); Eosinophils # (A) 0.53 X 10*3/uL (0.04-0.35); Eosinophils % (A) 6.4 %; HCT 36.7 % (39.6-50.0); HGB 11.7 g/dL (13.0-17.0); Lymphocytes # (A) 2.31 X 10*3/uL (0.90-5.00); Lymphocytes % (A) 27.8 %; MCHC 31.9 g/dL (32.0-37.0); MCV 81.6 FL (80.0-97.0); Mean Platelet Volume 9.9 FL (9.5-12.2); Monocytes % (A) 8.4 %; NRBC Per 100 WBC 0 X 10*3/uL (0.00-0.01); Neutrophils # (A) 4.68 X 10*3/uL (1.80-7.70); Neutrophils % (A) 56.2 %; Platelet Count 328 X 10*3/uL (140-440); RDW 14.9 % (11.5-14.5); WBC 8.32 X 10*3/uL (4.50-10.00)
[2024-05-31 08:43] LABS: ALT 15 U/L (10-49); AST 18 U/L (14-35); Albumin 3.2 g/dL (3.8-4.9); Albumin/Globulin Ratio 1.14 Ratio (1.60-3.17); Alkaline Phosphatase 120 U/L (41-126); Blood Urea Nitrogen 16.8 mg/dL (9.0-27.0); Calcium 8.5 mg/dL (8.7-10.3); Carbon Dioxide 22.2 mmol/L (21.6-31.8); Chloride 103 mmol/L (96-109); Globulin 2.8 g/dL (1.6-3.3); Glucose 226 mg/dL (70-110); Magnesium 2.1 mg/dL (1.5-2.4); Potassium 4.3 mmol/L (3.5-5.5); Sodium 134 mmol/L (135-145); Total Bilirubin 0.2 mg/dL (0.3-1.2)
[2024-05-31] MEDS ORDERED: DAPTOmycin 500 MG VIAL IV SCH (09:00)
[2024-05-31] MEDS: ISOSORBIDE MONONITRATE ER 30 MG TAB.ER.24H PO SCH (09:35)
[2024-05-31] MEDS: ASPIRIN 81 MG PO SCH (09:36)
[2024-05-31] MEDS: MORPHINE SULFATE 2 MG/ML SYRINGE IVP ONE (09:36)
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
[2024-05-31 11:08] LABS: Glucose,Whole Blood 170 mg/dL (70-110)
[2024-05-31 11:41] VITALS: BMI 33.5
[2024-05-31] MEDS: LACTATED RINGERS 1,000 ML IV SCH (12:12)
[2024-05-31] MEDS: FLUTICASONE NASAL 50MCG/SPRAY 16GM BTL EA NOSTRIL SCH (12:36)
[2024-05-31] MEDS ORDERED: PROPOFOL 10 MG/ML 20 ML VIAL IV ONE (13:50)
[2024-05-31] MEDS: IV FLUID CONTINUATION 1,000 ML IV ONE ×2 (13:53→14:08)
[2024-05-31] MEDS: ASPIRIN-ACET-CAFF 250-250-65MG 1 EACH TAB PO PRN (15:44)
[2024-05-31 16:40] LABS: Glucose,Whole Blood 256 mg/dL (70-110)
[2024-05-31 20:37] LABS: Glucose,Whole Blood 203 mg/dL (70-110)
--- NOTE | 2024-05-31 21:21 | P.CONS ---
History of Present Illness - Reason for Consult Consult date: 05/31/24 Continuation of outpatient IV antibiotic Requesting physician: Kristina Jeong - Chief Complaint Difficulty swallowing x days - History of Present Illness Patient is a 58-year-old male with a past medical history significant for diabetes mellitus reflux hypertension PE syncope who was admitted to the hospital from 04/18/2024 till 04/22/2024 patient was diagnosed with a diabetic foot infection with ulceration to the right foot culture were positive for Alcaligenes faecalis Streptococcus VRE as well as MRSA patient did get a PICC line and was advised a 6-week course of Fortaz and daptomycin along with oral Flagyl unfortunately patient never follow-up in the office postdischarge from the hospital and now being admitted to the hospital for evaluation of difficulty swallowing solids and liquids with associated pain that apparently been going on for the last few days patient denies having any fever or any chills no headache no chest pain shortness of breath or cough no abdominal pain patient did mention his right foot wound is healing well he did not have a very good excuse for no follow-up and apparently the patient was initially scheduled to complete his IV antibiotic therapy as of 05/30/2024 however the patient mention he still have few doses of antibiotic left at home patient presented to the hospital was afebrile patient was not tachycardic hypotensive or hypoxic he did have a white count of 11.2 at admission which is down to 8.32 creatinine 0.8 electrolytes are normal liver enzymes are normal urine is negative influenza RSV COVID testing negative blood cultures obtained which are currently pending patient has been continued on ceftazidime daptomycin and Flagyl infectious disease was consulted today for continuation of his outpatient IV by therapy Review of Systems Positive point and negatives has been mentioned in the HPI, complete review of systems was performed and all other systems are negative Past Medical History Past Medical History: Heart Failure, Diabetes Mellitus, GERD/Reflux, Hypertension, Pulmonary Embolus (PE), Syncope Additional Past Medical History / Comment(s): occ. pain with swallowing at times, hiatal hernia, dry skin, hx kidney stones, non healing foot ulcers History of Any Multi-Drug Resistant Organisms: MRSA, VRE Year Discovered:: 04/07/24-VRE; 04/07/24-MRSA MDRO Source:: VRE-rt toe; MRSA-Rt Foot Past Surgical History: Orthopedic Surgery Additional Past Surgical History / Comment(s): cystoscopy/stent in urethra, olga carpal tunnel, trigger finger left thumb, rt thumb surgery, shoulder surgery Past Anesthesia/Blood Transfusion Reactions: No Reported Reaction Additional Past Anesthesia/Blood Transfusion Reaction / Comm: dizziness Past Psychological History: No Psychological Hx Reported Smoking Status: Former smoker Past Alcohol Use History: None Reported Past Drug Use History: Marijuana - Past Family History Mother Family Medical History: Hyperlipidemia Father Family Medical History: Diabetes Mellitus Medications and Allergies Home Medications Medication Instructions Recorded Confirmed Type Aspirin 81 mg PO DAILY 03/23/24 05/30/24 History Isosorbide Mononitrate ER [Imdur] 30 mg PO DAILY 03/23/24 05/30/24 History Metoprolol Tartrate 25 mg PO BID 03/23/24 05/30/24 History Apixaban [Eliquis] 5 mg PO BID 04/16/24 05/30/24 History Tirzepatide [Mounjaro] 2.5 mg SQ ACEVEDO 04/16/24 05/30/24 History metFORMIN HCL 1,000 mg PO BID 04/16/24 05/30/24 History Cyclobenzaprine [Flexeril] 10 mg PO TID PRN #30 tab 06/01/24 Rx Fluticasone Nasal Union [Flonase 2 spray EA NOSTRIL DAILY #0 ml 06/01/24 Rx Nasal Union] Insulin Aspart [NovoLOG Flexpen] 1 - 14 units SQ AC-TID #5 each 06/01/24 Rx Insulin Glargine,Hum.rec.anlog 20 units SQ DAILY #5 each 06/01/24 Rx [Lantus Solostar Pen] Metoclopramide [Reglan] 10 mg PO ACHS #60 tab 06/01/24 Rx Allergies Allergy/AdvReac Type Severity Reaction Status Date / Time dapagliflozin [From [facility]] Allergy Rash/Hives Verified 05/30/24 02:56 metformin AdvReac Nausea & Verified 05/30/24 02:56 Vomiting & Diarrhea Xxymwyv-PMK-VnP Reductase AdvReac liver Verified 05/30/24 02:56 Inhibitor problems [Gbhftfc-Qiz-Dku Reductase Inhibitor] Physical Exam Vitals: Vital Signs Temp Pulse Pulse Pulse Resp BP BP 05/31/24 07:57 97.6 F 76 17 106/67 05/31/24 02:25 97.7 F 76 17 127/75 05/30/24 22:18 98.1 F 80 16 105/66 05/30/24 20:31 97.8 F 96 22 129/84 05/30/24 14:01 89 18 145/87 Pulse Ox 05/31/24 07:57 95 05/31/24 02:25 97 05/30/24 22:18 97 05/30/24 20:31 98 05/30/24 14:01 98 Intake and Output 05/30/24 05/31/24 05/31/24 22:59 06:59 14:59 Other: # Voids 2 Weight 97.069 kg 97.069 kg GENERAL DESCRIPTION: Middle-age male lying in bed, no distress. No tachypnea or accessory muscle of respiration use. HEENT: Shows Pallor , no scleral icterus. Oral mucous membrane is dry. NECK: Trachea central, no thyromegaly. LUNGS: Unlabored breathing. Clear to auscultation anteriorly. No wheeze or crack le. HEART: S1, S2, regular rate and rhythm. No loud murmur ABDOMEN: Soft, no tenderness , guarding or rigidity, no organomegaly EXTREMITIES: Right foot plantar wound at the base of the first metatarsal wound base looks clean there is no surrounding redness or any foul-smelling drainage. SKIN: No rash, no masses palpable. NEUROLOGICAL: The patient is awake, alert, oriented x3, mood and affect normal. Results CBC & Chem 7: 06/01/24 03:19 06/01/24 03:19 Labs: Abnormal Lab Results - Last 24 Hours (Table) 05/30/24 05/30/24 05/30/24 Range/Units 12:08 15:49 17:50 Hgb (13.0-17.0) g/dL Hct (39.6-50.0) % MCH (27.0-32.0) pg MCHC (32.0-37.0) g/dL RDW (11.5-14.5) % Eosinophils # (0.04-0.35) X 10*3/uL Sodium (135-145) mmol/L BUN/Creatinine Ratio (12.00-20.00) Ratio Glucose (70-110) mg/dL POC Glucose (mg/dL) 248 H 271 H (70-110) mg/dL Hemoglobin A1c (<=6.0) % Osmolality 297 H (275-295) mOsm/kg Calcium (8.7-10.3) mg/dL Total Bilirubin (0.3-1.2) mg/dL Total Protein (6.2-8.2) g/dL Albumin (3.8-4.9) g/dL Albumin/Globulin Ratio (1.60-3.17) Ratio 05/30/24 05/31/24 05/31/24 Range/Units 20:32 03:08 03:08 Hgb 11.7 L (13.0-17.0) g/dL Hct 36.7 L (39.6-50.0) % MCH 26.0 L (27.0-32.0) pg MCHC 31.9 L (32.0-37.0) g/dL RDW 14.9 H (11.5-14.5) % Eosinophils # 0.53 H (0.04-0.35) X 10*3/uL Sodium (135-145) mmol/L BUN/Creatinine Ratio (12.00-20.00) Ratio Glucose (70-110) mg/dL POC Glucose (mg/dL) 226 H (70-110) mg/dL Hemoglobin A1c 14.6 H (<=6.0) % Osmolality (275-295) mOsm/kg Calcium (8.7-10.3) mg/dL Total Bilirubin (0.3-1.2) mg/dL Total Protein (6.2-8.2) g/dL Albumin (3.8-4.9) g/dL Albumin/Globulin Ratio (1.60-3.17) Ratio 05/31/24 05/31/24 05/31/24 Range/Units 03:08 06:32 11:06 Hgb (13.0-17.0) g/dL Hct (39.6-50.0) % MCH (27.0-32.0) pg MCHC (32.0-37.0) g/dL RDW (11.5-14.5) % Eosinophils # (0.04-0.35) X 10*3/uL Sodium 134 L (135-145) mmol/L BUN/Creatinine Ratio 21.00 H (12.00-20.00) Ratio Glucose 226 H (70-110) mg/dL POC Glucose (mg/dL) 204 H 170 H (70-110) mg/dL Hemoglobin A1c (<=6.0) % Osmolality (275-295) mOsm/kg Calcium 8.5 L (8.7-10.3) mg/dL Total Bilirubin 0.2 L (0.3-1.2) mg/dL Total Protein 6.0 L (6.2-8.2) g/dL Albumin 3.2 L (3.8-4.9) g/dL Albumin/Globulin Ratio 1.14 L (1.60-3.17) Ratio Assessment and Plan (1) Diabetic ulcer of right foot Status: Acute Code(s): E11.621 - TYPE 2 DIABETES MELLITUS WITH FOOT ULCER; L97.519 - NON-PRS CHRONIC ULCER OTH PRT RIGHT FOOT W UNSP SEVERITY SNOMED Code(s): 960022086 (2) Foot osteomyelitis, right Status: Acute Code(s): M86.9 - OSTEOMYELITIS, UNSPECIFIED SNOMED Code(s): 7671720369482953 Plan: 1patient with a chronic nonhealing wound to the right foot on the plantar aspect at the base of the first metatarsal in this patient with admission to the hospital in April culture positive for multiple pathogen including VRE MRSA schedule this patient is for the patient should have completed antibiotic therapy as of 05/30/2024 however the patient seem to have been noncompliant as he missed some of the doses and mention he did have doses of antibiotic left at home patient also never follow-up in the office after he was discharged from the hospital more than 6 weeks ago concerning for noncompliance with the treatment 2-patient has been advised to finish what ever doses he has left at home auto versus the PICC line should be discontinued no need for further extension of his IV antibiotic therapy 3-patient to continue with the Fortaz daptomycin and Flagyl while inpatient Local wound care per the wound care team We will follow on clinical condition and cultures to further adjust medication if needed Thank you for this consultation we will follow the patient along with you Dictation was produced using [employer] dictation software. please excuse any grammatical, word or spelling errors. Time with Patient: Greater than 30
[2024-05-31] MEDS: INSULIN GLARGINE (LANTUS) 100 UNIT/ML SYR SQ SCH (22:00)
[2024-05-31] MEDS: ALPRAZolam 0.5 MG TAB PO PRN (23:14)
[2024-06-01 02:28] VITALS: TEMP 98.1
[2024-06-01 06:14] LABS: Glucose,Whole Blood 284 mg/dL (70-110)
[2024-06-01 08:32] LABS: ALT 15 U/L (10-49); AST 18 U/L (14-35); Albumin 2.9 g/dL (3.8-4.9); Albumin/Globulin Ratio 1.16 Ratio (1.60-3.17); Alkaline Phosphatase 100 U/L (41-126); Blood Urea Nitrogen 20.4 mg/dL (9.0-27.0); Calcium 8.3 mg/dL (8.7-10.3); Carbon Dioxide 21.6 mmol/L (21.6-31.8); Chloride 106 mmol/L (96-109); Globulin 2.5 g/dL (1.6-3.3); Glucose 322 mg/dL (70-110); Magnesium 2.1 mg/dL (1.5-2.4); Potassium 4.6 mmol/L (3.5-5.5); Sodium 136 mmol/L (135-145); Total Bilirubin <0.2 mg/dL (0.3-1.2); Total Protein 5.4 g/dL (6.2-8.2)
[2024-06-01 08:42] LABS: Basophils # (A) 0.07 X 10*3/uL (0.00-0.10); Basophils % (A) 1.2 %; Eosinophils # (A) 0.48 X 10*3/uL (0.04-0.35); HCT 33.6 % (39.6-50.0); HGB 10.7 g/dL (13.0-17.0); Lymphocytes # (A) 1.38 X 10*3/uL (0.90-5.00); MCHC 31.8 g/dL (32.0-37.0); MCV 81.8 FL (80.0-97.0); Mean Platelet Volume 10.4 FL (9.5-12.2); Monocytes # (A) 0.39 X 10*3/uL (0.20-1.00); Monocytes % (A) 6.5 %; NRBC Per 100 WBC 0 X 10*3/uL (0.00-0.01); Neutrophils # (A) 3.64 X 10*3/uL (1.80-7.70); Neutrophils % (A) 60.8 %; Platelet Count 297 X 10*3/uL (140-440); RBC 4.11 X 10*6/uL (4.40-5.60); RDW 14.9 % (11.5-14.5); WBC 5.99 X 10*3/uL (4.50-10.00)
[2024-06-01] MEDS: INSULIN GLARGINE (LANTUS) 100 UNIT/ML SYR SQ SCH (09:40)
[2024-06-01 10:42] VITALS: BP 114/68; PULSE 73; RESP 17
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
--- NOTE | 2024-06-01 11:18 | P.PN ---
Subjective Progress Note Date: 06/01/24 SURGICAL PROGRESS NOTE CHIEF COMPLAINT: Dysphagia HISTORY OF PRESENT ILLNESS: Patient status post EGD revealing gastroparesis. Patient was able to tolerate breakfast. He reports he has a little sticking of the food when he swallows. But it is improving. He denies any nausea or vomiting. Denies any abdominal pain. Blood sugars are showing improvement. His hemoglobin A1c was 14.8. Medicine service planning discharge today. PHYSICAL EXAM: VITAL SIGNS: Reviewed. GENERAL: Well-developed in no acute distress. ABDOMEN: Soft. Nondistended. Nontender. NEUROLOGIC: Alert and oriented. Cranial nerves II through XII grossly intact. ASSESSMENT: 1. Gastroparesis noted on EGD 2. Hyperosmolar hyperglycemic state 3. Dysphagia PLAN: -Patient can be discharge from surgical standpoint -Continue Reglan -Recommend tight blood sugar control Physician Talent Acquisition Assistant note has been reviewed by physician. Signing provider agrees with the documented findings, assessment, and plan of care. Objective - Vital Signs Vital signs: Vital Signs Temp 98.1 F 06/01/24 07:45 Pulse 73 06/01/24 07:45 Resp 17 06/01/24 07:45 BP 114/68 06/01/24 07:45 Pulse Ox 95 06/01/24 07:45 FiO2 Intake & Output 05/31/24 06/01/24 06/01/24 18:59 06:59 18:59 Intake Total 200 540 Balance 200 540 Weight 97.069 kg Intake: IV 200 Oral 540 Other: Voiding Method Toilet # Voids 4 2 1 - Labs CBC & Chem 7: 06/01/24 03:19 06/01/24 03:19 Labs: Abnormal Lab Results - Last 24 Hours (Table) 05/31/24 05/31/24 06/01/24 Range/Units 16:33 20:36 03:19 RBC (4.40-5.60) X 10*6/uL Hgb (13.0-17.0) g/dL Hct (39.6-50.0) % MCH (27.0-32.0) pg MCHC (32.0-37.0) g/dL RDW (11.5-14.5) % Eosinophils # (0.04-0.35) X 10*3/uL BUN/Creatinine Ratio (12.00-20.00) Ratio Glucose (70-110) mg/dL POC Glucose (mg/dL) 256 H 203 H (70-110) mg/dL Hemoglobin A1c 14.8 H (<=6.0) % Calcium (8.7-10.3) mg/dL Total Bilirubin (0.3-1.2) mg/dL Total Protein (6.2-8.2) g/dL Albumin (3.8-4.9) g/dL Albumin/Globulin Ratio (1.60-3.17) Ratio 06/01/24 06/01/24 06/01/24 Range/Units 03:19 03:19 06:13 RBC 4.11 L (4.40-5.60) X 10*6/uL Hgb 10.7 L (13.0-17.0) g/dL Hct 33.6 L (39.6-50.0) % MCH 26.0 L (27.0-32.0) pg MCHC 31.8 L (32.0-37.0) g/dL RDW 14.9 H (11.5-14.5) % Eosinophils # 0.48 H (0.04-0.35) X 10*3/uL BUN/Creatinine Ratio 20.40 H (12.00-20.00) Ratio Glucose 322 H (70-110) mg/dL POC Glucose (mg/dL) 284 H (70-110) mg/dL Hemoglobin A1c (<=6.0) % Calcium 8.3 L (8.7-10.3) mg/dL Total Bilirubin <0.2 L (0.3-1.2) mg/dL Total Protein 5.4 L (6.2-8.2) g/dL Albumin 2.9 L (3.8-4.9) g/dL Albumin/Globulin Ratio 1.16 L (1.60-3.17) Ratio Microbiology - Last 24 Hours (Table) 05/30/24 15:10 Blood Culture - Preliminary Blood Assessment and Plan Assessment: egd with gastroparesis no stenosis Time with Patient: Greater than 30
[2024-06-01 11:38] LABS: Glucose,Whole Blood 154 mg/dL (70-110)
[2024-06-01] MEDS: INSULIN LISPRO (HumaLOG) 100 UNIT/ML 10 mL VL SQ SCH (13:00)
--- NOTE | 2024-06-02 13:13 | P.PN ---
Subjective Progress Note Date: 06/01/24 Principal diagnosis: Reason for follow-up is right diabetic foot infection/osteomyelitis Patient is a 58-year-old male with a past medical history significant for diabetes mellitus reflux hypertension PE syncope who was admitted to the hospital from 04/18/2024 till 04/22/2024 patient was diagnosed with a diabetic foot infection with ulceration to the right foot culture were positive for Alcaligenes faecalis Streptococcus VRE as well as MRSA now presenting 4 days daptomycin and Flagyl admitted with difficulty swallowing ID consulted for management of antibiotic. On today's evaluation that is 06/01/2024,the patient denies any fever or any chills, patient is breathing comfortably on room air, the patient denies chest pain shortness of breath and no significant cough, patient denies abdominal pain, no nausea vomiting or diarrhea. Patient white count is 5.98, creatinine 1.0 blood culture this admission has been negative so far Objective - Vital Signs Vital signs: Vital Signs Temp 98.1 F 06/01/24 07:45 Pulse 73 06/01/24 07:45 Resp 17 06/01/24 07:45 BP 114/68 06/01/24 07:45 Pulse Ox 95 06/01/24 07:45 FiO2 Intake & Output 05/31/24 06/01/24 06/01/24 18:59 06:59 18:59 Intake Total 200 540 Balance 200 540 Weight 97.069 kg Intake: IV 200 Oral 540 Other: Voiding Method Toilet # Voids 4 2 1 - Exam GENERAL DESCRIPTION: Middle-age male lying in bed in no distress RESPIRATORY SYSTEM: Unlabored breathing , decreased breath sounds at bases HEART: S1 S2 regular rate and rhythm , ABDOMEN: Soft , no tenderness EXTREMITIES: Right foot is currently dressed - Labs CBC & Chem 7: 06/01/24 03:19 06/01/24 03:19 Labs: Abnormal Lab Results - Last 24 Hours (Table) 05/31/24 05/31/24 05/31/24 Range/Units 11:06 16:33 20:36 RBC (4.40-5.60) X 10*6/uL Hgb (13.0-17.0) g/dL Hct (39.6-50.0) % MCH (27.0-32.0) pg MCHC (32.0-37.0) g/dL RDW (11.5-14.5) % Eosinophils # (0.04-0.35) X 10*3/uL BUN/Creatinine Ratio (12.00-20.00) Ratio Glucose (70-110) mg/dL POC Glucose (mg/dL) 170 H 256 H 203 H (70-110) mg/dL Hemoglobin A1c (<=6.0) % Calcium (8.7-10.3) mg/dL Total Bilirubin (0.3-1.2) mg/dL Total Protein (6.2-8.2) g/dL Albumin (3.8-4.9) g/dL Albumin/Globulin Ratio (1.60-3.17) Ratio 06/01/24 06/01/24 06/01/24 Range/Units 03:19 03:19 03:19 RBC 4.11 L (4.40-5.60) X 10*6/uL Hgb 10.7 L (13.0-17.0) g/dL Hct 33.6 L (39.6-50.0) % MCH 26.0 L (27.0-32.0) pg MCHC 31.8 L (32.0-37.0) g/dL RDW 14.9 H (11.5-14.5) % Eosinophils # 0.48 H (0.04-0.35) X 10*3/uL BUN/Creatinine Ratio 20.40 H (12.00-20.00) Ratio Glucose 322 H (70-110) mg/dL POC Glucose (mg/dL) (70-110) mg/dL Hemoglobin A1c 14.8 H (<=6.0) % Calcium 8.3 L (8.7-10.3) mg/dL Total Bilirubin <0.2 L (0.3-1.2) mg/dL Total Protein 5.4 L (6.2-8.2) g/dL Albumin 2.9 L (3.8-4.9) g/dL Albumin/Globulin Ratio 1.16 L (1.60-3.17) Ratio 06/01/24 Range/Units 06:13 RBC (4.40-5.60) X 10*6/uL Hgb (13.0-17.0) g/dL Hct (39.6-50.0) % MCH (27.0-32.0) pg MCHC (32.0-37.0) g/dL RDW (11.5-14.5) % Eosinophils # (0.04-0.35) X 10*3/uL BUN/Creatinine Ratio (12.00-20.00) Ratio Glucose (70-110) mg/dL POC Glucose (mg/dL) 284 H (70-110) mg/dL Hemoglobin A1c (<=6.0) % Calcium (8.7-10.3) mg/dL Total Bilirubin (0.3-1.2) mg/dL Total Protein (6.2-8.2) g/dL Albumin (3.8-4.9) g/dL Albumin/Globulin Ratio (1.60-3.17) Ratio Microbiology - Last 24 Hours (Table) 05/30/24 15:10 Blood Culture - Preliminary Blood Assessment and Plan (1) Diabetic ulcer of right foot Status: Acute Code(s): E11.621 - TYPE 2 DIABETES MELLITUS WITH FOOT ULCER; L97.519 - NON-PRS CHRONIC ULCER OTH PRT RIGHT FOOT W UNSP SEVERITY SNOMED Code(s): 546251209 (2) Foot osteomyelitis, right Status: Acute Code(s): M86.9 - OSTEOMYELITIS, UNSPECIFIED SNOMED Code(s): 7187264606429790 Plan: 1patient with a chronic nonhealing wound to the right foot on the plantar aspect at the base of the first metatarsal in this patient with admission to the hospital in April culture positive for multiple pathogen including VRE MRSA schedule this patient is for the patient should have completed antibiotic therapy as of 05/30/2024 however the patient seem to have been noncompliant as he missed some of the doses and mention he did have doses of antibiotic left at home patient also never follow-up in the office after he was discharged from the hospital more than 6 weeks ago concerning for noncompliance with the treatment 2-patient wiill infuse Fortaz daptomycin that he has at home and take his oral Flagyl due to the finished PICC line to be discontinued after last dose of IV antibiotic by the home care nurse he will continue to follow-up with the wound care for his local wound care Dictation was produced using [employer] dictation software. please excuse any grammatical, word or spelling errors. Time with Patient: Less than 30
--- NOTE | 2024-06-02 23:44 | P.OP ---
Date of Procedure: 05/31/24 Preoperative Diagnosis: Difficulty swallowing Postoperative Diagnosis: Delayed gastric emptying, gastroparesis Procedure(s) Performed: EGD Surgeon: Ludwin Ellsworth Pathology: none sent Condition: stable Disposition: PACU Indications for Procedure: Difficulty swallowing Operative Findings: Retained liquid food Description of Procedure: The patient was brought to the endoscopy suite where a timeout was performed and everyone agreed with the information cited. Lumbar scope was then used to traverse the mild esophagus stomach and second portion of the duodenum without difficulty. The scope was slowly retracted looking at the mucosa in a circumferential fashion and although the patient has been n.p.o. there was evidence of retained food in bile in the patient's stomach significant for delayed gastric emptying. The scope was retroflexed no hiatal hernia was observed. The scope was further retracted looking at the Z-line and no signs of Gong's was observed. The scope was slowly retracted without difficulty and no signs of stricture. The patient was then transported to PACU in stable condition
== END 2024-06-01 14:34 | disposition home health service (06) | DRG 638 ==
LOC: EC 02:50 → 4SSUR 05:43 → OBSVTOIN 05:43 → 4SSUR 13:19
PROVIDERS: ADMIT Internal Medicine; ATTEND Internal Medicine
PROC: 0DJ08ZZ Inspection of Upper Intestinal Tract, Via Natural or Artificial Opening Endoscopic (ICD-10-PCS; principal; 2024-05-31 07:30)
DX: E11.00 Type 2 diabetes mellitus with hyperosmolarity without nonketotic hyperglycemic-hyperosmolar coma (NKHHC) (principal); I50.32 Chronic diastolic (congestive) heart failure; I27.20 Pulmonary hypertension, unspecified; Z11.52 Encounter for screening for COVID-19; M86.8X7 Other osteomyelitis, ankle and foot; T18.2XXA Foreign body in stomach, initial encounter; R13.10 Dysphagia, unspecified; I11.0 Hypertensive heart disease with heart failure; E11.42 Type 2 diabetes mellitus with diabetic polyneuropathy; E11.69 Type 2 diabetes mellitus with other specified complication; E11.43 Type 2 diabetes mellitus with diabetic autonomic (poly)neuropathy; E11.621 Type 2 diabetes mellitus with foot ulcer; E11.622 Type 2 diabetes mellitus with other skin ulcer; E11.628 Type 2 diabetes mellitus with other skin complications; Z79.4 Long term (current) use of insulin; L97.512 Non-pressure chronic ulcer of other part of right foot with fat layer exposed; J01.90 Acute sinusitis, unspecified; N20.0 Calculus of kidney; R10.30 Lower abdominal pain, unspecified; K44.9 Diaphragmatic hernia without obstruction or gangrene; M62.838 Other muscle spasm; K08.89 Other specified disorders of teeth and supporting structures; G43.909 Migraine, unspecified, not intractable, without status migrainosus; Z79.01 Long term (current) use of anticoagulants; Z86.711 Personal history of pulmonary embolism; I25.10 Atherosclerotic heart disease of native coronary artery without angina pectoris; K21.9 Gastro-esophageal reflux disease without esophagitis; K31.84 Gastroparesis; L08.89 Other specified local infections of the skin and subcutaneous tissue; Z79.82 Long term (current) use of aspirin; Z79.84 Long term (current) use of oral hypoglycemic drugs; Z79.899 Other long term (current) drug therapy; Z87.442 Personal history of urinary calculi; Z87.891 Personal history of nicotine dependence; Z91.199 Patient's noncompliance with other medical treatment and regimen due to unspecified reason; Z87.19 Personal history of other diseases of the digestive system; Z88.8 Allergy status to other drugs, medicaments and biological substances; X58.XXXA Exposure to other specified factors, initial encounter
CPT/HCPCS: 36415; 43235; 70487; 76770; 80051; 80053; 81003; 82150; 82565; 82607; 82747; 82947; 83036; 83690; 83735; 83930; 84100; 84443; 84484; 84520; 85025; 87040; 87636; 93005; 96361; 96365; 96366; 96367; 96368; 96375; 96376; 99285

== ENCOUNTER 2024-08-03 18:31 | Inpatient (IN) | payer MEDICARE ==
--- NOTE | 2024-08-03 19:50 | ED ---
Skin/Abscess/FB HPI - General Chief complaint: Skin/Abscess/Foreign Body Stated complaint: alonso on back, R foot pain Time Seen by Provider: 08/03/24 19:49 Source: patient Mode of arrival: ambulatory Limitations: no limitations - History of Present Illness Initial comments: 58-year-old male presenting with chief complaint of burn to the back and increased redness and swelling to the right foot. Patient reports that last night he fell asleep with a heating pad on his back and today he woke up with blisters on his back. He is having some discomfort. He is diabetic and has history of recurrent skin infections and wanted to come here for further soha luation. Patient is also having increased redness and swelling to the right foot. Patient does have a diabetic foot ulcer that is open on the bottom of his foot. He sees wound care and has home care come. He was told by his home care nurse to come to the ER. He denies any fever. He does report purulent discharge. He has history of osteomyelitis and toe amputations. He thinks he may have stepped on something last week that caused this - Related Data Home Medications Medication Instructions Recorded Confirmed Aspirin 81 mg PO DAILY 03/23/24 08/04/24 Isosorbide Mononitrate ER [Imdur] 30 mg PO DAILY 03/23/24 08/04/24 Metoprolol Tartrate 25 mg PO BID 03/23/24 08/04/24 Apixaban [Eliquis] 5 mg PO BID 04/16/24 08/04/24 Fenofibrate [Lofibra] 54 mg PO HS 08/04/24 08/04/24 Insulin Aspart [NovoLOG Flexpen] See Protocol SQ AC-TID 08/04/24 08/04/24 Insulin Glargine,Hum.rec.anlog 20 units SQ BID 08/04/24 08/04/24 [Lantus Solostar Pen] Tirzepatide [Mounjaro] 5 mg SQ TU 08/04/24 08/04/24 lisinopriL [Zestril] 5 mg PO DAILY 08/04/24 08/04/24 Previous Rx's Medication Instructions Recorded Cyclobenzaprine [Flexeril] 10 mg PO TID PRN #30 tab 06/01/24 Metoclopramide [Reglan] 10 mg PO ACHS #60 tab 06/01/24 Allergies Allergy/AdvReac Type Severity Reaction Status Date / Time dapagliflozin [From [facility]] Allergy Rash/Hives Verified 08/04/24 08:57 metformin AdvReac Nausea & Verified 08/04/24 08:57 Vomiting & Diarrhea Haayupc-BWY-QvF Reductase AdvReac liver Verified 08/04/24 08:57 Inhibitor problems [Hibxtwh-Dwo-Qpa Reductase Inhibitor] Review of Systems ROS Statement: Those systems with pertinent positive or pertinent negative responses have been documented in the HPI. ROS Other: All systems not noted in ROS Statement are negative. Past Medical History Past Medical History: Heart Failure, Diabetes Mellitus, GERD/Reflux, Hypertension, Pulmonary Embolus (PE), Syncope Additional Past Medical History / Comment(s): occ. pain with swallowing at times, hiatal hernia, dry skin, hx kidney stones, non healing foot ulcers History of Any Multi-Drug Resistant Organisms: MRSA, VRE Date of last positivie culture/infection: 04/07/24-VRE; 04/07/24-MRSA MDRO Source:: VRE-rt toe; MRSA-Rt Foot Past Surgical History: Orthopedic Surgery Additional Past Surgical History / Comment(s): cystoscopy/stent in urethra, olga carpal tunnel, trigger finger left thumb, rt thumb surgery, shoulder surgery Past Anesthesia/Blood Transfusion Reactions: No Reported Reaction Additional Past Anesthesia/Blood Transfusion Reaction / Comment(s): dizziness Past Psychological History: No Psychological Hx Reported Smoking Status: Former smoker Past Alcohol Use History: None Reported Past Drug Use History: Marijuana - Past Family History Mother Family Medical History: Hyperlipidemia Father Family Medical History: Diabetes Mellitus General Exam - General Exam Comments Initial Comments: Visual Physical Exam Vital signs reviewed General: Well-appearing, nontoxic, no acute distress. Head: Normocephalic, atraumatic Eyes: PERRLA, EOMI ENT: Airway patent Chest: Nonlabored breathing Skin: No visual rash, normal skin tone Neuro: Alert and oriented 3 Musculoskeletal: No gross abnormalities Limitations: no limitations General appearance: alert, in no apparent distress Head exam: Present: atraumatic, normocephalic, normal inspection Eye exam: Present: normal appearance, EOMI. Absent: periorbital swelling Neck exam: Present: normal inspection. Absent: meningismus Respiratory exam: Absent: respiratory distress Cardiovascular Exam: Present: regular rate Right Foot/Toe exam: Present: tenderness, swelling, erythema, amputation Neurological exam: Present: alert, oriented X3 Psychiatric exam: Present: normal affect, normal mood Skin exam: Present: other (Open diabetic foot wound with purulent discharge to the plantar surface of the right foot) Course Vital Signs 08/03/24 08/04/24 08/04/24 19:15 01:45 03:33 Temperature 98.1 F Pulse Rate 99 84 89 Pulse Rate [ Sitting] Respiratory 18 17 18 Rate Blood Pressure 134/82 115/78 131/85 Blood Pressure [Right Arm Sitting] O2 Sat by Pulse 97 98 94 L Oximetry 08/04/24 08/04/24 08/04/24 05:00 06:00 13:00 Temperature 97 F L Pulse Rate 82 89 80 Pulse Rate [ Sitting] Respiratory 17 18 20 Rate Blood Pressure 119/77 124/79 128/81 Blood Pressure [Right Arm Sitting] O2 Sat by Pulse 99 100 98 Oximetry 08/04/24 08/04/24 08/04/24 14:30 17:30 18:00 Temperature 97.8 F 98.7 F 98.9 F Pulse Rate 84 72 Pulse Rate [ 87 Sitting] Respiratory 16 16 16 Rate Blood Pressure 118/77 114/75 Blood Pressure 120/74 [Right Arm Sitting] O2 Sat by Pulse 99 100 99 Oximetry 08/04/24 21:09 Temperature Pulse Rate 91 Pulse Rate [ Sitting] Respiratory 18 Rate Blood Pressure 114/65 Blood Pressure [Right Arm Sitting] O2 Sat by Pulse 97 Oximetry Medical Decision Making - Medical Decision Making I performed the quick note portion of this visit, electronically signed Adán Mckenzie PA-C Was pt. sent in by a medical professional or institution (SARIKA Hagen, HANDS AND DIAL INSPECTOR, urgent care, hospital, or care home...) When possible be specific @ -No Did you speak to anyone other than the patient for history (EMS, parent, family, police, friend...)? What history was obtained from this source @ -No Did you review nursing and triage notes (agree or disagree)? Why? @ -I reviewed and agree with nursing and triage notes Were old charts reviewed (outside hosp., previous admission, EMS record, old EKG, old radiological studies, urgent care reports/EKG's, care home records)? Report findings @ -No old charts were reviewed Differential Diagnosis (chest pain, altered mental status, abdominal pain women, abdominal pain men, vaginal bleeding, weakness, fever, dyspnea, syncope, headache, dizziness, GI bleed, back pain, seizure, CVA, palpatations, mental health, musculoskeletal)? @ -Differential Musculoskeletal Muscular strain, contusion, ligament sprain, fracture, arthritis, septic arthritis, bursitis, cellulitis, muscle spasm, nerve compression, DVT, arterial occlusion, herpes zoster, electrolyte abnormality, tumor.... This is not meant to be in all inclusive list EKG interpreted by me (3pts min.). @ -As above X-rays interpreted by me (1pt min.). @ -X-ray shows diffuse soft tissue swelling of the distal foot. There has been prior amputation. No radiographic evidence of acute osteomyelitis identified. CT interpreted by me (1pt min.). @ -None done U/S interpreted by me (1pt. min.). @ -None done What testing was considered but not performed or refused? (CT, X-rays, U/S, labs)? Why? @ -None What meds were considered but not given or refused? Why? @ -None Did you discuss the management of the patient with other professionals (professionals i.e. DrKourtney, PA, HANDS AND DIAL INSPECTOR, lab, RT, psych nurse, social security benefits interviewer, cathodic protection technician, teacher, aerospace engineer officer armament, senior case manager)? Give summary @ -Spoke with Dr. Buenrostro who accepts admission Was smoking cessation discussed for >3mins.? @ -No Was critical care preformed (if so, how long)? @ -No Were there social determinants of health that impacted care today? How? (Homelessness, low income, unemployed, alcoholism, drug addiction, transportation, low edu. Level, literacy, decrease access to med. care, usp, rehab)? @ -No Was there de-escalation of care discussed even if they declined (Discuss DNR or withdrawal of care, Hospice)? DNR status @ -No What co-morbidities impacted this encounter? (DM, HTN, Smoking, COPD, CAD, Cancer, CVA, ARF, Chemo, Hep., AIDS, mental health diagnosis, sleep apnea, morbid obesity)? @ -Diabetes Was patient admitted / discharged? Hospital course, mention meds given and route, prescriptions, significant lab abnormalities, going to OR and other pertinent info. @ -58-year-old male presenting with chief complaint of alonso to his back and worsening infection of the right foot. Patient has first-degree alonso on his back from falling asleep with a heating pad on. He also has erythema swelling and purulent discharge to the right foot. He has history of previous toe amputations. Wound cultures taken. Patient is given bacitracin for his alonso on his back. X-rays negative for osteomyelitis. Patient is treated with vancomycin and Rocephin. He will be admitted for further management. Infectious disease and vascular surgery are consulted. Patient is agreeable with this plan. I discussed this case with my attending Dr. Ernandez. Undiagnosed new problem with uncertain prognosis? @ -No Drug Therapy requiring intensive monitoring for toxicity (Heparin, Nitro, Insulin, Cardizem)? @ -No Were any procedures done? @ -No Diagnosis/symptom? @ -Diabetic foot infection Acute, or Chronic, or Acute on Chronic? @ -Acute Uncomplicated (without systemic symptoms) or Complicated (systemic symptoms)? @ -Complicated Side effects of treatment? @ -No Exacerbation, Progression, or Severe Exacerbation? @ -No Poses a threat to life or bodily function? How? (Chest pain, USA, NV, pneumonia, PE, COPD, DKA, ARF, appy, cholecystitis, CVA, Diverticulitis, Homicidal, Suicidal, threat to staff... and all critical care pts) @ -Yes - Lab Data Result diagrams: 08/05/24 05:28 08/05/24 05:28 Disposition Clinical Impression: Diabetic foot infection Disposition: ADMITTED IP TO THIS HOSP Condition: Fair Time of Disposition: 01:10
--- NOTE | 2024-08-03 22:56 | XR ---
EXAMINATION TYPE: XR foot complete RT DATE OF EXAM: 08/03/2024 10:51 PM COMPARISON: None. CLINICAL INDICATION: Male, 58 years old with history of infection, pain TECHNIQUE: 3 view(s) obtained. FINDINGS: Diffuse soft tissue swelling over the distal foot is evident. Small plantar calcaneal heel spur is pr esent. Some calcification along the plantar fascia appears to be present. There is prior amputation of the distal first metatarsal and second metatarsal. Chronic changes are i n the distal third metatarsal. No suspicious cortical erosion is identified. Three-phase Nuclear medicine bone scan can be performed for sufficient clinical suspicion of osteomyelitis. IMPRESSION: 1. Diffuse soft tissue swelling distal foot. There is been prior amputation. No radiographic evidenc e of acute osteomyelitis identified. Follow up exams can be performed as clinically indicated. [facility], , 08/03/2024 10:54 PM
[2024-08-03] MEDS ORDERED: VANCOMYCIN IV PER PHARMACY 1 EACH MISC MISCELLANE PRN (23:18)
[2024-08-03] MEDS: BACITRACIN ZINC 500 UNIT/GM OINT 28.4 GM TUBE TOPICAL SCH (23:20)
[2024-08-04] MEDS: HYDROmorphone 1 MG/ML 1 ML SYRINGE IVP STA (00:18)
[2024-08-04 00:21] LABS: Basophils # (A) 0.07 10*3/uL (0.00-0.10); Basophils % (A) 0.8 %; Eosinophils # (A) 0.23 10*3/uL (0.04-0.35); Eosinophils % (A) 2.6 %; HCT 35.7 % (39.6-50.0); HGB 11.5 g/dL (13.0-17.0); Lymphocytes # (A) 2.04 10*3/uL (0.90-5.00); MCH 23.9 pg (27.0-32.0); MCHC 32.2 g/dL (32.0-37.0); MCV 74.2 fL (80.0-97.0); Mean Platelet Volume 8.8 fL (9.5-12.2); Monocytes # (A) 0.72 10*3/uL (0.20-1.00); Monocytes % (A) 8.1 %; Neutrophils # (A) 5.79 10*3/uL (1.80-7.70); Neutrophils % (A) 65.3 %; Platelet Count 451 10*3/uL (140-440); RBC 4.81 10*6/uL (4.40-5.60); RDW 15.1 % (11.5-14.5); WBC 8.87 10*3/uL (4.50-10.00)
[2024-08-04 00:41] LABS: ALT 19 U/L (4-49); AST 25 U/L (17-59); African American GFR (CKD) >90 (>60 ml/min/1.73 sqM); Albumin 3.5 g/dL (3.5-5.0); Alkaline Phosphatase 136 U/L (38-126); Anion Gap 9 mmol/L; Blood Urea Nitrogen 20 mg/dL (9-20); C Reactive Protein 5.9 mg/dL (<1.0); Calcium 9.3 mg/dL (8.4-10.2); Carbon Dioxide 25 mmol/L (22-30); Chloride 100 mmol/L (98-107); Glucose 160 mg/dL (74-99); Non-African American GFR(CKD) >90 (>60 ml/min/1.73 sqM); Potassium 4.3 mmol/L (3.5-5.1); Sodium 134 mmol/L (137-145); Total Bilirubin 0.4 mg/dL (0.2-1.3); Total Protein 7.1 g/dL (6.3-8.2)
[2024-08-04] MEDS: VANCOMYCIN 1,750 MG in SODIUM CHLORIDE 0.9% 500 ML 500 ML IVPB ONE (01:01)
[2024-08-04] MEDS ORDERED: ACETAMINOPHEN TAB 325 MG TAB PO PRN (01:05)
[2024-08-04] MEDS ORDERED: NALOXONE 0.4 MG/ML 1 ML VIAL IV PRN (01:05)
[2024-08-04] MEDS ORDERED: DEXTROSE 50% SYRINGE 50 ML IVP PRN ×2 (02:43)
[2024-08-04] MEDS: SODIUM CHLORIDE 0.9% 1,000 ML IV SCH (03:04)
[2024-08-04 03:50] LABS: Glucose,Whole Blood 135 mg/dL (70-110)
--- NOTE | 2024-08-04 04:28 | P.HPIM ---
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 Labratory review: -WBCs 8.87, hemoglobin 11.5 hematocrit 35.7, platelet 451; sodium 134, potassium 4.3, bicarb 25, BUN 20, creatinine 0.74, lactic acid 1.4, calcium 9.3, total bilirubin 0.4, AST 25, ALT 19, alkaline phosphatase 136, CRP 5.9 Imaging: -X-ray right foot shows diffuse soft tissue swelling distal foot, with evidence of prior amputation; no radiographic evidence of acute osteomyelitis identified -EKG done in the ER showed heart rate of , no ST segment elevation or depression seen, no T-wave inversions seen. Vitals: - Blood pressure 134/82, heart rate 99, respiratory 18, SpO2 97% on room air Patient admitted to internal medicine service REVIEW OF SYSTEMS: Pertinent positives and negatives noted in HPI. The rest of the 14-point review of systems is negative. Physical Exam: General: nontoxic, no distress, appears at stated age Derm: warm, dry, intact Head: atraumatic, normocephalic, symmetric Eyes: EOMI, anicteric sclera Mouth: no lip lesion, mucus membranes moist Cardiovascular: S1 S2 reg, no murmur, rubs, or gallops Lungs: CTA bilateral, no rales, no accessory muscle use Abdominal: soft, non-tender to palpataion, no appreciable organomegaly Extremities: no gross muscle atrophy, no edema, no contractures Back: Superficial alonso located across whole back with some minor blistering Foot: Right foot s/p multiple amputations of 1st and 2nd digit, erythema noted up to the midfoot with associated warmth and slight tenderness to palpation; weeping, wound at the base of the right big toe Neuro: Alert, Oriented, CNII-XII grossly intact, gait normal Psych: well appearing, appropriate affect Assessment and plan 58-year-old man PMH of insulin-dependent diabetes mellitus, hypertension, GERD who is presenting to the emergency department due to chronic right foot infection in the presence of alonso on his back from a heating pad. #Diabetic foot infection of the right foot #History of osteomyelitis with MRSA and VRE infection of same foot - History of MRSA and VRE infection - WBC is not elevated patient denies any fever; dry, nonweightbearing wound at the base of the right big toe with associated erythema midway up the right foot - Received 2 g Rocephin once in the ED, initiated on vancomycin - CRP 5.9, ESR ordered and currently pending - MRI right foot w/o contrast - Infectious disease consulted - Vascular surgery consulted - Wound care consulted; patient was scheduled to have an appointment at the wound care clinic on 08/05/2024 #Insulin-dependent diabetes mellitus - Hold oral antihyperglycemic agents - Continue insulin regimen similar to home once verified pharmacy - Accu-Cheks ACHS - Sliding scale initiated - Most recent hemoglobin A1c on 06/01/2024 showed to be 14.8% - Monitor for hypoglycemia #Severe pulmonary hypertension #Diastolic HFpEF not in exacerbation #History of PE on Eliquis - Continue aspirin 81 mg daily once verified by pharmacy - Continue Eliquis 5 mg twice daily once verified by pharmacy - Continue metoprolol tartrate 25 mg twice daily once verified by pharmacy - Continue Imdur 30 mg daily once verified by pharmacy #Persistent dysphagia to solids and liquids - Had previously been evaluated by speech-language pathology - Was initiated on metoclopramide 10 mg ACHS during previous visit, which she states helped significantly - Continue medical provide 10 mg ACHS 105 per pharmacy GI prophylaxis: None DVT prophylaxis: Continue home Eliquis 5 mg twice daily once verified by pharmacy The patient is admitted with an anticipated more than than 2 midnight stay for evaluation of diabetic foot infection of the right foot. CODE STATUS: Full code Discussed with: Patient Anticipated discharge place: Pending clinical course Dictation was produced using [email or web address] dictation software. please excuse any grammatical, word or spelling errors. Tom Decker MD PGY-1 IM I have seen and evaluated the patient today. I Discussed the case with the re sident and agree with the resident's findings I edited the assessment and plan as necessary as documented in the resident's note. Past Medical History Past Medical History: Heart Failure, Diabetes Mellitus, GERD/Reflux, Hypertension, Pulmonary Embolus (PE), Syncope Additional Past Medical History / Comment(s): occ. pain with swallowing at times, hiatal hernia, dry skin, hx kidney stones, non healing foot ulcers History of Any Multi-Drug Resistant Organisms: MRSA, VRE Date of last positivie culture/infection: 04/07/24-VRE; 04/07/24-MRSA MDRO Source:: VRE-rt toe; MRSA-Rt Foot Past Surgical History: Orthopedic Surgery Additional Past Surgical History / Comment(s): cystoscopy/stent in urethra, olga carpal tunnel, trigger finger left thumb, rt thumb surgery, shoulder surgery Past Anesthesia/Blood Transfusion Reactions: No Reported Reaction Additional Past Anesthesia/Blood Transfusion Reaction / Comment(s): dizziness Past Psychological History: No Psychological Hx Reported Smoking Status: Former smoker Past Alcohol Use History: None Reported Past Drug Use History: Marijuana - Past Family History Mother Family Medical History: Hyperlipidemia Father Family Medical History: Diabetes Mellitus Medications and Allergies Home Medications Medication Instructions Recorded Confirmed Type Aspirin 81 mg PO DAILY 03/23/24 05/30/24 History Isosorbide Mononitrate ER [Imdur] 30 mg PO DAILY 03/23/24 05/30/24 History Metoprolol Tartrate 25 mg PO BID 03/23/24 05/30/24 History Apixaban [Eliquis] 5 mg PO BID 04/16/24 05/30/24 History Tirzepatide [Mounjaro] 2.5 mg SQ ACEVEDO 04/16/24 05/30/24 History metFORMIN HCL 1,000 mg PO BID 04/16/24 05/30/24 History Cyclobenzaprine [Flexeril] 10 mg PO TID PRN #30 tab 06/01/24 Rx Fluticasone Nasal [place] [Flonase 2 spray EA NOSTRIL DAILY #0 ml 06/01/24 Rx Nasal [place]] Insulin Aspart [NovoLOG Flexpen] 1 - 14 units SQ AC-TID #5 each 06/01/24 Rx Insulin Glargine,Hum.rec.anlog 20 units SQ DAILY #5 each 06/01/24 Rx [Lantus Solostar Pen] Metoclopramide [Reglan] 10 mg PO ACHS #60 tab 06/01/24 Rx Allergies Allergy/AdvReac Type Severity Reaction Status Date / Time dapagliflozin [From [facility]] Allergy Rash/Hives Verified 08/03/24 19:17 metformin AdvReac Nausea & Verified 08/03/24 19:17 Vomiting & Diarrhea Azdzimx-OWO-EzG Reductase AdvReac liver Verified 08/03/24 19:17 Inhibitor problems [Iixupjs-Bcs-Oty Reductase Inhibitor] Physical Exam Vitals: Vital Signs Temp Pulse Resp BP Pulse Ox 08/03/24 19:15 98.1 F 99 18 134/82 97 Intake and Output 08/03/24 08/03/24 08/04/24 14:59 22:59 06:59 Other: Weight 101.605 kg Results CBC & Chem 7: 08/04/24 00:00 08/04/24 00:00 Labs: Abnormal Lab Results - Last 24 Hours (Table) 08/04/24 08/04/24 Range/Units 00:00 00:00 Hgb 11.5 L (13.0-17.0) g/dL Hct 35.7 L (39.6-50.0) % MCV 74.2 L (80.0-97.0) fL MCH 23.9 L (27.0-32.0) pg Plt Count 451 H (140-440) 10*3/uL MPV 8.8 L (9.5-12.2) fL Sodium 134 L (137-145) mmol/L Glucose 160 H (74-99) mg/dL Alkaline Phosphatase 136 H (38-126) U/L C-Reactive Protein 5.9 H (<1.0) mg/dL
[2024-08-04] MEDS: HYDROmorphone 1 MG/ML 1 ML SYRINGE IVP PRN (05:59)
[2024-08-04 07:48] LABS: Glucose,Whole Blood 109 mg/dL (70-110)
[2024-08-04] MEDS: INSULIN LISPRO (HumaLOG) 100 UNIT/ML 10 mL VL SQ SCH (08:07)
[2024-08-04] MEDS ORDERED: ENOXAPARIN 40 MG/0.4 ML SYRINGE SQ SCH (09:00)
--- NOTE | 2024-08-04 10:37 | P.CONS ---
History of Present Illness - Reason for Consult Consult date: 08/04/24 wound care - History of Present Illness This is a 58-year-old gentleman who is known to the wound care center with a nonhealing ulcer ration to the right foot. Patient is noncompliant his last appointment was 07/15/2024. We have been utilizing absorptive silver to the site. At his last visit patient did have increased swelling and cellulitic appearance to the lower extremity. Patient does deny change due to his neuropathy when he was there is circumferential increased drainage with hyper hydration of the ISREAL ulcerative tissue the ulcer has necrotic tissue marginally centrally. No undermining or tunneling. Original cause of wound was Gradually Appeared. The date acquired was: 03/25/2024. The wound has been in treatment 14 weeks. The wound is currently classified as a Grade 2 wound with etiology of Diabetic Wound/Ulcer of the Lower Extremity and is located on the Right,Plantar Metatarsal head first. The wound measures 1.2cm length x 1.3cm width x 0.3cm depth; 1.225cm^2 area and 0.368cm^3 volume. There is bone and Fat Layer (Subcutaneous Tissue) exposed. There is no tunneling or undermining noted. There is a medium amount of serosanguineous drainage noted. The wound margin is thickened. There is large (67-100%) red, pink granulation within the wound bed. There is a small (1-33%) amount of necrotic tissue within the wound bed including Adherent Slough. The periwound skin appearance exhibited: Callus, Sca rring, Maceration, Erythema. The periwound skin appearance did not exhibit: Crepitus, Excoriation, Induration, Rash, Dry/Scaly, Atrophie Fen[place], Cyanosis, Ecchymosis, Hemosiderin Staining, Mottled, Pallor, Rubor. The surrounding wound skin color is noted with erythema which is circumferential. Periwound temperature was noted as No Abnormality. The periwound has tenderness on palpation. Review Of Systems: Constitutional: No fever, no chills, no night sweats. No weight change. No weakness, fatigue or lethargy. No daytime sleepiness. Integumentary:reports wounds, no lesions. No rash or pruritus. No unusual bruising. No change in hair or nails. Physical exam: General Appearance: Alert, cooperative, no distress, appears stated age. Skin: See HPI all other Skin color, texture, tugor normal, no rashes or lesions. Neurologic: Alert oriented x3 Assessment: 1. Non-pressure chronic ulcer of other part of right foot with fat layer exposed 2. Cellulitis of right lower limb 3. Partial traumatic amputation of right foot, level unspecified, sequela 4. Diabetic foot ulcer Plan: 1. Apply absorptive silver dry, dry gauze, rolled gauze. Secure with paper tape. Change Thursday. Patient return to the wound care center on August 12 at his regularly scheduled appointment time. Continue to offload. Thank you for the consultation any questions please contact the wound care center DNP note has been reviewed and discussed with Dr. Ariza and the impression and plan of care has been directed as dictated. Past Medical History Past Medical History: Heart Failure, Diabetes Mellitus, GERD/Reflux, Hypertension, Pulmonary Embolus (PE), Syncope Additional Past Medical History / Comment(s): occ. pain with swallowing at times, hiatal hernia, dry skin, hx kidney stones, non healing foot ulcers History of Any Multi-Drug Resistant Organisms: MRSA, VRE Year Discovered:: 04/07/24-VRE; 04/07/24-MRSA MDRO Source:: VRE-rt toe; MRSA-Rt Foot Past Surgical History: Orthopedic Surgery Additional Past Surgical History / Comment(s): cystoscopy/stent in urethra, olga carpal tunnel, trigger finger left thumb, rt thumb surgery, shoulder surgery Past Anesthesia/Blood Transfusion Reactions: No Reported Reaction Additional Past Anesthesia/Blood Transfusion Reaction / Comm: dizziness Past Psychological History: No Psychological Hx Reported Smoking Status: Former smoker Past Alcohol Use History: None Reported Past Drug Use History: Marijuana - Past Family History Mother Family Medical History: Hyperlipidemia Father Family Medical History: Diabetes Mellitus Medications and Allergies Home Medications Medication Instructions Recorded Confirmed Type Aspirin 81 mg PO DAILY 03/23/24 08/04/24 History Isosorbide Mononitrate ER [Imdur] 30 mg PO DAILY 03/23/24 08/04/24 History Metoprolol Tartrate 25 mg PO BID 03/23/24 08/04/24 History Apixaban [Eliquis] 5 mg PO BID 04/16/24 08/04/24 History Cyclobenzaprine [Flexeril] 10 mg PO TID PRN #30 tab 06/01/24 08/04/24 Rx Metoclopramide [Reglan] 10 mg PO ACHS #60 tab 06/01/24 08/04/24 Rx Fenofibrate [Lofibra] 54 mg PO HS 08/04/24 08/04/24 History Insulin Aspart [NovoLOG Flexpen] See Protocol SQ AC-TID 08/04/24 08/04/24 History Insulin Glargine,Hum.rec.anlog 20 units SQ BID 08/04/24 08/04/24 History [Lantus Solostar Pen] Tirzepatide [Mounjaro] 5 mg SQ TU 08/04/24 08/04/24 History lisinopriL [Zestril] 5 mg PO DAILY 08/04/24 08/04/24 History Allergies Allergy/AdvReac Type Severity Reaction Status Date / Time dapagliflozin [From [facility]] Allergy Rash/Hives Verified 08/04/24 08:57 metformin AdvReac Nausea & Verified 08/04/24 08:57 Vomiting & Diarrhea Gvodalm-AAY-QlW Reductase AdvReac liver Verified 08/04/24 08:57 Inhibitor problems [Tprwwvi-Wou-Iam Reductase Inhibitor] Physical Exam Vitals: Vital Signs Temp Pulse Resp BP Pulse Ox 08/04/24 06:00 89 18 124/79 100 08/04/24 05:00 82 17 119/77 99 08/04/24 03:33 89 18 131/85 94 L 08/04/24 01:45 84 17 115/78 98 08/03/24 19:15 98.1 F 99 18 134/82 97 Intake and Output 08/03/24 08/04/24 08/04/24 22:59 06:59 14:59 Other: Weight 101.605 kg Results CBC & Chem 7: 08/04/24 00:00 08/04/24 00:00 Labs: Abnormal Lab Results - Last 24 Hours (Table) 08/04/24 08/04/24 08/04/24 Range/Units 00:00 00:00 00:00 Hgb 11.5 L (13.0-17.0) g/dL Hct 35.7 L (39.6-50.0) % MCV 74.2 L (80.0-97.0) fL MCH 23.9 L (27.0-32.0) pg Plt Count 451 H (140-440) 10*3/uL MPV 8.8 L (9.5-12.2) fL ESR 67 H (0-20) mm/Hr Sodium 134 L (137-145) mmol/L Glucose 160 H (74-99) mg/dL POC Glucose (mg/dL) (70-110) mg/dL Alkaline Phosphatase 136 H (38-126) U/L C-Reactive Protein 5.9 H (<1.0) mg/dL 08/04/24 Range/Units 03:48 Hgb (13.0-17.0) g/dL Hct (39.6-50.0) % MCV (80.0-97.0) fL MCH (27.0-32.0) pg Plt Count (140-440) 10*3/uL MPV (9.5-12.2) fL ESR (0-20) mm/Hr Sodium (137-145) mmol/L Glucose (74-99) mg/dL POC Glucose (mg/dL) 135 H (70-110) mg/dL Alkaline Phosphatase (38-126) U/L C-Reactive Protein (<1.0) mg/dL Assessment and Plan (1) Cellulitis of right lower limb Current Visit: Yes Status: Acute Code(s): L03.115 - CELLULITIS OF RIGHT LOWER LIMB SNOMED Code(s): 28531222288514986 (2) Partial traumatic amputation of right foot, level unspecified, sequela Current Visit: Yes Status: Acute Code(s): S98.921S - PARTIAL TRAUMATIC AMP OF RIGHT FOOT, LEVEL UNSP, SEQUELA SNOMED Code(s): 48473308282974513 (3) Non-pressure chronic ulcer of other part of right foot with fat layer exposed Current Visit: No Status: Acute Code(s): L97.512 - NON-PRS CHRONIC ULCER OTH PRT RIGHT FOOT W FAT LAYER EXPOSED SNOMED Code(s): 88163510257124332 (4) Type 2 diabetes mellitus with foot ulcer Current Visit: No Status: Acute Code(s): E11.621 - TYPE 2 DIABETES MELLITUS WITH FOOT ULCER; L97.509 - NON-PRESSURE CHRONIC ULCER OTH PRT UNSP FOOT W UNSP SEVERITY SNOMED Code(s): 0865038832579
[2024-08-04] MEDS: METOCLOPRAMIDE 10 MG TAB PO SCH (11:20)
[2024-08-04] MEDS: APIXABAN 5 MG TAB PO SCH (11:22)
[2024-08-04] MEDS: VANCOMYCIN 1,750 MG in SODIUM CHLORIDE 0.9% 500 ML 500 ML IVPB SCH (11:22)
[2024-08-04 12:22] LABS: Glucose,Whole Blood 145 mg/dL (70-110)
[2024-08-04 13:31] LABS: Glucose,Whole Blood 156 mg/dL (70-110)
[2024-08-04] MEDS: INSULIN GLARGINE (LANTUS) 100 UNIT/ML SYR SQ SCH (14:57)
[2024-08-04] MEDS: KETOROLAC 15 MG/ML 1 ML VIAL IVP PRN (15:16)
--- NOTE | 2024-08-04 15:38 | MR ---
EXAMINATION TYPE: MR foot RT wo con DATE OF EXAM: 08/04/2024 2:15 PM COMPARISON: Correlation right foot radiograph 08/03/2024 CLINICAL INDICATION: Male, 58 years old with history of Possible osteomyelitis, Possible osteomyeliti s, pain and swelling TECHNIQUE: Multiplanar, multisequence images of the right foot were obtained without IV contrast. FINDINGS: There is a previous amputation of the second and third toes at the level of the distal metatarsal sha fts. There is a deep stump ulcer extending to the bone of the first metatarsal osteotomy margin and p ossibly close to the second metatarsal amputation margin as well. There are extensive osseous edema throughout the residual first metatarsal with corresponding bone ma rrow replacement sparing only the first metatarsal base. On axial series, there is additional low T1-weighted signal involving the distal portion of the secon d metatarsal also showing corresponding osseous edema. Diffuse soft tissue swelling and swelling along the plantar musculature. IMPRESSION: 1. Previous first and second toe amputations with a deep stump ulcer extending to the first metatarsa l osteotomy margin. 2. Underlying signal changes are compatible with extensive contiguous osteomyelitis of the first meta tarsal sparing only the metatarsal base. 3. Additional findings suspicious for osteomyelitis also involving the distal aspect of the second me tatarsal. 4. Diffuse soft tissue swelling and plantar muscle edema. Correlate for combination of cellulitis and /or neuropathic change. [facility], , 08/04/2024 3:36 PM
[2024-08-04] MEDS: metroNIDAZOLE-NS PMX 500 MG in SALINE 1 100ML.BAG IVPB SCH (17:26)
[2024-08-04 17:38] LABS: Glucose,Whole Blood 227 mg/dL (70-110)
[2024-08-04] MEDS: FENOFIBRATE 54 MG TAB PO SCH (20:59)
[2024-08-04] MEDS: METOPROLOL TARTRATE 25 MG TAB PO SCH (21:00)
[2024-08-04 21:16] LABS: Glucose,Whole Blood 153 mg/dL (70-110)
--- NOTE | 2024-08-04 22:58 | P.CONS ---
History of Present Illness - Reason for Consult Consult date: 08/04/24 Diabetic foot infection Requesting physician: Adán Mckenzie - Chief Complaint Right foot swelling and redness x few days - History of Present Illness Patient is a 58-year-old male with a past medical history significant for type 2 diabetes mellitus hypertension PE syncope reflux history of right diabetic foot infection/osteomyelitis and has been treated with multiple courses of antibiotic, patient presenting to the hospital concerning for for evaluation of right foot increasing pain swelling and redness that apparently has been getting worse over the last few days, patient describes the pain to be sharp moderate to severe intensity without radiation, patient did have a wound on the plantar aspect of the right foot that seem to be draining more lately patient did have some chills but did not recall any high-grade fever and on presentation to the hospital the patient was afebrile, patient was not tachycardic hypotensive or hypoxic patient did have a white count of 8.87 creatinine 0.74 electrolytes are normal liver enzymes are normal local culture have been obtained he did have x-ray of the foot diffuse soft tissue swelling swelling distal foot no radiographic evidence of osteomyelitis patient was started on ceftriaxone and vancomycin along with Flagyl infectious disease was consulted for further management of antibiotic therapy Review of Systems Positive point and negatives has been mentioned in the HPI, complete review of systems was performed and all other systems are negative Past Medical History Past Medical History: Heart Failure, Diabetes Mellitus, GERD/Reflux, Hypertension, Pulmonary Embolus (PE), Syncope Additional Past Medical History / Comment(s): occ. pain with swallowing at times, hiatal hernia, dry skin, hx kidney stones, non healing foot ulcers History of Any Multi-Drug Resistant Organisms: MRSA, VRE Year Discovered:: 04/07/24-VRE; 04/07/24-MRSA MDRO Source:: VRE-rt toe; MRSA-Rt Foot Past Surgical History: Orthopedic Surgery Additional Past Surgical History / Comment(s): cystoscopy/stent in urethra, olga carpal tunnel, trigger finger left thumb, rt thumb surgery, shoulder surgery Past Anesthesia/Blood Transfusion Reactions: No Reported Reaction Additional Past Anesthesia/Blood Transfusion Reaction / Comm: dizziness Past Psychological History: No Psychological Hx Reported Smoking Status: Former smoker Past Alcohol Use History: None Reported Past Drug Use History: Marijuana - Past Family History Mother Family Medical History: Hyperlipidemia Father Family Medical History: Diabetes Mellitus Medications and Allergies Home Medications Medication Instructions Recorded Confirmed Type Aspirin 81 mg PO DAILY 03/23/24 08/04/24 History Isosorbide Mononitrate ER [Imdur] 30 mg PO DAILY 03/23/24 08/04/24 History Metoprolol Tartrate 25 mg PO BID 03/23/24 08/04/24 History Apixaban [Eliquis] 5 mg PO BID 04/16/24 08/04/24 History Cyclobenzaprine [Flexeril] 10 mg PO TID PRN #30 tab 06/01/24 08/04/24 Rx Metoclopramide [Reglan] 10 mg PO ACHS #60 tab 06/01/24 08/04/24 Rx Fenofibrate [Lofibra] 54 mg PO HS 08/04/24 08/04/24 History Insulin Aspart [NovoLOG Flexpen] See Protocol SQ AC-TID 08/04/24 08/04/24 History Insulin Glargine,Hum.rec.anlog 20 units SQ BID 08/04/24 08/04/24 History [Lantus Solostar Pen] Tirzepatide [Mounjaro] 5 mg SQ TU 08/04/24 08/04/24 History lisinopriL [Zestril] 5 mg PO DAILY 08/04/24 08/04/24 History Allergies Allergy/AdvReac Type Severity Reaction Status Date / Time dapagliflozin [From [facility]] Allergy Rash/Hives Verified 08/04/24 08:57 metformin AdvReac Nausea & Verified 08/04/24 08:57 Vomiting & Diarrhea Oomshud-VFF-QsT Reductase AdvReac liver Verified 08/04/24 08:57 Inhibitor problems [Wrekrkz-Ydq-Sdx Reductase Inhibitor] Physical Exam Vitals: Vital Signs Temp Pulse Resp BP Pulse Ox 08/04/24 06:00 89 18 124/79 100 08/04/24 05:00 82 17 119/77 99 08/04/24 03:33 89 18 131/85 94 L 08/04/24 01:45 84 17 115/78 98 08/03/24 19:15 98.1 F 99 18 134/82 97 Intake and Output 08/03/24 08/04/24 08/04/24 22:59 06:59 14:59 Other: Weight 101.605 kg GENERAL DESCRIPTION: Middle-age male lying in bed, no distress. No tachypnea or accessory muscle of respiration use. HEENT: Shows Pallor , no scleral icterus. Oral mucous membrane is dry. NECK: Trachea central, no thyromegaly. LUNGS: Unlabored breathing. Clear to auscultation anteriorly. No wheeze or crackle. HEART: S1, S2, regular rate and rhythm. No loud murmur ABDOMEN: Soft, no tenderness , guarding or rigidity, no organomegaly EXTREMITIES: Right foot plantar ulcer with drainage and did have erythema and swelling to the right foot extending to the leg SKIN: No rash, no masses palpable. NEUROLOGICAL: The patient is awake, alert, oriented x3, mood and affect normal. Results CBC & Chem 7: 08/04/24 00:00 08/04/24 00:00 Labs: Abnormal Lab Results - Last 24 Hours (Table) 08/04/24 08/04/24 08/04/24 Range/Units 00:00 00:00 00:00 Hgb 11.5 L (13.0-17.0) g/dL Hct 35.7 L (39.6-50.0) % MCV 74.2 L (80.0-97.0) fL MCH 23.9 L (27.0-32.0) pg Plt Count 451 H (140-440) 10*3/uL MPV 8.8 L (9.5-12.2) fL ESR 67 H (0-20) mm/Hr Sodium 134 L (137-145) mmol/L Glucose 160 H (74-99) mg/dL POC Glucose (mg/dL) (70-110) mg/dL Alkaline Phosphatase 136 H (38-126) U/L C-Reactive Protein 5.9 H (<1.0) mg/dL 08/04/24 Range/Units 03:48 Hgb (13.0-17.0) g/dL Hct (39.6-50.0) % MCV (80.0-97.0) fL MCH (27.0-32.0) pg Plt Count (140-440) 10*3/uL MPV (9.5-12.2) fL ESR (0-20) mm/Hr Sodium (137-145) mmol/L Glucose (74-99) mg/dL POC Glucose (mg/dL) 135 H (70-110) mg/dL Alkaline Phosphatase (38-126) U/L C-Reactive Protein (<1.0) mg/dL Assessment and Plan (1) Cellulitis of right lower limb Current Visit: Yes Status: Acute Code(s): L03.115 - CELLULITIS OF RIGHT LOWER LIMB SNOMED Code(s): 97003055858118057 (2) Diabetic foot infection Current Visit: Yes Status: Acute Code(s): E11.628 - TYPE 2 DIABETES MELLITUS WITH OTHER SKIN COMPLICATIONS; L08.9 - LOCAL INFECTION OF THE SKIN AND SUBCUTANEOUS TISSUE, UNSP SNOMED Code(s): 230887841 (3) Foot osteomyelitis, right Current Visit: No Status: Acute Code(s): M86.9 - OSTEOMYELITIS, UNSPECIFIED SNOMED Code(s): 7409381436132662 Plan: 1patient presented to hospital with increasing pain swelling redness to the right lower extremity in this patient who did have right diabetic foot ulcer on the plantar aspect now with evidence of secondary cellulitis involving the right foot and lower extremity will need to cover for the gram-positive as well as gram-negative pathogen as the patient has grown multiple pathogen from his wound in the past 2-await MRI of the right foot as well as vascular surgeon evaluation for possible debridement and deep culture 3-will check inflammatory markers 4-patient will be treated with a vancomycin Rocephin and Flagyl while waiting for the culture to finalize We will follow on clinical condition and cultures to further adjust medication if needed Thank you for this consultation we will follow the patient along with you Dictation was produced using [employer] dictation software. please excuse any grammatical, word or spelling errors. Time with Patient: Greater than 30
[2024-08-05] MEDS: MENTHOL-CAMPHOR LOTION 222 APPLIC/222 ML BOTTLE TOPICAL PRN (00:02)
[2024-08-05 06:16] LABS: Glucose,Whole Blood 185 mg/dL (70-110)
[2024-08-05 06:24] LABS: Basophils # (A) 0.05 10*3/uL (0.00-0.10); Basophils % (A) 0.8 %; Eosinophils # (A) 0.29 10*3/uL (0.04-0.35); Eosinophils % (A) 4.7 %; HCT 32.8 % (39.6-50.0); HGB 10.3 g/dL (13.0-17.0); Lymphocytes # (A) 1.33 10*3/uL (0.90-5.00); Lymphocytes % (A) 21.3 %; MCH 23.9 pg (27.0-32.0); MCHC 31.4 g/dL (32.0-37.0); MCV 76.1 fL (80.0-97.0); Mean Platelet Volume 9.1 fL (9.5-12.2); Monocytes # (A) 0.51 10*3/uL (0.20-1.00); Monocytes % (A) 8.2 %; Neutrophils # (A) 4.04 10*3/uL (1.80-7.70); Neutrophils % (A) 64.8 %; Platelet Count 389 10*3/uL (140-440); RBC 4.31 10*6/uL (4.40-5.60); RDW 15.3 % (11.5-14.5); WBC 6.23 10*3/uL (4.50-10.00)
[2024-08-05 06:37] LABS: African American GFR (CKD) >90 (>60 ml/min/1.73 sqM); Anion Gap 8 mmol/L; Blood Urea Nitrogen 16 mg/dL (9-20); Calcium 8.7 mg/dL (8.4-10.2); Carbon Dioxide 22 mmol/L (22-30); Chloride 103 mmol/L (98-107); Glucose 181 mg/dL (74-99); Non-African American GFR(CKD) >90 (>60 ml/min/1.73 sqM); Potassium 4.5 mmol/L (3.5-5.1); Sodium 133 mmol/L (137-145)
[2024-08-05] MEDS: lisinopriL 5 MG TAB PO SCH (08:13)
[2024-08-05] MEDS ORDERED: ISOSORBIDE MONONITRATE ER 30 MG TAB.ER.24H PO SCH (09:00)
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
[2024-08-05] MEDS: ASPIRIN 81 MG PO SCH (10:32)
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
[2024-08-05 11:59] LABS: Glucose,Whole Blood 157 mg/dL (70-110)
[2024-08-05] MEDS: ISOSORBIDE MONONITRATE ER 30 MG TAB.ER.24H PO SCH (12:57)
--- NOTE | 2024-08-05 14:45 | P.PN ---
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 08/05/24: Patient seen and examined at bedside. He reports pain on right leg. Review of systems: Pertinent positives and negatives as discussed in HPI, a complete review of systems was performed and all other systems are negative. Vitals: Signs Reviewed and stable Physical examination: General: nontoxic, no distress, appears at stated age Derm: warm, dry, intact Head: atraumatic, normocephalic, symmetric Eyes: EOMI, anicteric sclera Mouth: no lip lesion, mucus membranes moist Cardiovascular: S1 S2 reg, no murmur, rubs, or gallops Lungs: CTA bilateral, no rales, no accessory muscle use Abdominal: soft, non-tender to palpataion, no appreciable organomegaly Extremities: no gross muscle atrophy, no edema, no contractures Back: 1st degree alonso located across whole back with some minor blistering and scratch echevarria Foot: Right foot bandaged, erythema noted up to the midshin with associated warmth and slight tenderness to palpation, erythema on the mid allen on the left leg with tenderness to palpation Neuro: Alert, Oriented, CNII-XII grossly intact, gait normal Psych: well appearing, appropriate affect Data Reviewed Today: Labs: Hemoglobin 10.3, platelet count 389, RDW 15.3, MCV 76.1, sodium 133, glucose 185, CRP 4.0 Microbiology: Preliminary Gram stain from the wound shows few PMNs, no organisms Imaging: Foot MRI shows previous 1st and 2nd toe amputation with a deep stump w as extending to first metatarsal osteotomy region, underlying signal changes are compatible with extensive contiguous osteomyelitis of the first metatarsal sparing only the metatarsal base, additional findings suspicion for osteomyelitis also involving the distal aspect of the second metatarsal, diffuse soft tissue swelling and plantar muscle edema Assessment/Plan: 58-year-old man PMH of insulin-dependent diabetes mellitus, hypertension, GERD who is presenting to the emergency department due to chronic right foot infection in the presence of alonso on his back from a heating pad. Active: #. Diabetic foot ulcer of the right foot #. History of osteomyelitis with MRSA and VRE positive #. Cellulitis of the right lower extremity WBC is not elevated patient denies any fever; dry, nonweightbearing wound at the base of the right big toe with associated erythema midway up the right foot Received 2 g Rocephin once in the ED, initiated on vancomycin CRP 5.9, ESR 67 Foot MRI shows previous 1st and 2nd toe amputation with a deep stump was extending to first metatarsal osteotomy region, underlying signal changes are compatible with extensive contiguous osteomyelitis of the first metatarsal sparing only the metatarsal base, additional findings suspicion for osteomyelitis also involving the distal aspect of the second metatarsal, diffuse soft tissue swelling and plantar muscle edema Continue Vancomycin, Rocephin and Flagyl Infectious disease is following Vascular surgery consulted, recommend surgical debridement possible TMA Wound care consulted, recommend Apply absorptive silver dry, dry gauze, rolled gauze. Secure with paper tape. Change Thursday. Patient return to the wound care center on August 12 at his regularly scheduled appointment time. Continue to offload. #. 1st degree burn on back Bacitracin ointment and menthol-camphor lotion #. Insulin-dependent diabetes mellitus Most recent hemoglobin A1c on 06/01/2024 showed to be 14.8% Hold oral antihyperglycemic agents Continue Lantus 20 units BID Continue Insulin Sliding scale and ACHS blood glucose monitoring Monitor for hypoglycemia #. Persistent dysphagia to solids and liquids Had previously been evaluated by speech-language pathology Was initiated on metoclopramide 10 mg ACHS during previous visit, which he states helped significantly Continue metoclopramide 10 mg ACHS #. Mild hyponatremia Na 133 Monitor BMP #. Severe pulmonary hypertension #. Diastolic HFpEF not in exacerbation #. history of syncopal episode #. History of PE on Eliquis Continue aspirin 81 mg daily, Eliquis 5 mg twice daily, metoprolol tartrate 25 mg twice daily, Imdur 30 mg daily Orthostatic vitals supine 102/66, sitting 104/64, standing 103/62 Obtain echocardiogram Cardiology consulted Chronic: #. Hypertension #. Atrial fibrillation #. Hyperlipidemia #. History of CAD Continue Lisinopril 5 mg PO daily, Eliquis 5 mg p.o. twice daily, aspirin 81 mg p.o. daily, fenofibrate 54 mg p.o. at bedtime, Imdur 30 mg p.o. daily, metoprolol 25 mg p.o. twice daily F: None E: Replete as required N: Consistent carbohydrate diet A: Ambulatory DVT prophylaxis: Eliquis 5 mg PO BID Code status: Full Code Anticipated discharge place: Pending clinical course Anticipated discharge time: Pending clinical course Dictation was produced using [employer] dictation software. please excuse any grammatical, word or spelling errors. Sylvester Weinberg MD PGY-1 IM I have seen and evaluated the patient today. Discussed with the resident and agree with the residents finding and plan as documented in the resident's note. Changes highlighted in blue font. Objective - Vital Signs Vital signs: Vital Signs Temp 98.3 F 08/05/24 07:13 Pulse 81 08/05/24 07:13 Resp 17 08/05/24 07:13 BP 115/75 08/05/24 07:13 Pulse Ox 97 08/05/24 07:13 FiO2 Intake & Output 08/04/24 08/05/24 08/05/24 18:59 06:59 18:59 Intake Total 1080 Balance 1080 Weight 101.605 kg Intake: Oral 1080 Other: # Voids 1 - Labs CBC & Chem 7: 08/05/24 05:28 08/05/24 05:28 Labs: Abnormal Lab Results - Last 24 Hours (Table) 08/04/24 08/04/24 08/04/24 Range/Units 00:00 12:20 13:20 RBC (4.40-5.60) 10*6/uL Hgb (13.0-17.0) g/dL Hct (39.6-50.0) % MCV (80.0-97.0) fL MCH (27.0-32.0) pg MCHC (32.0-37.0) g/dL RDW (11.5-14.5) % MPV (9.5-12.2) fL ESR 67 H (0-20) mm/Hr Sodium (137-145) mmol/L Glucose (74-99) mg/dL POC Glucose (mg/dL) 145 H 156 H (70-110) mg/dL C-Reactive Protein (<1.0) mg/dL 08/04/24 08/04/24 08/05/24 Range/Units 17:37 21:15 05:28 RBC 4.31 L (4.40-5.60) 10*6/uL Hgb 10.3 L (13.0-17.0) g/dL Hct 32.8 L (39.6-50.0) % MCV 76.1 L (80.0-97.0) fL MCH 23.9 L (27.0-32.0) pg MCHC 31.4 L (32.0-37.0) g/dL RDW 15.3 H (11.5-14.5) % MPV 9.1 L (9.5-12.2) fL ESR (0-20) mm/Hr Sodium (137-145) mmol/L Glucose (74-99) mg/dL POC Glucose (mg/dL) 227 H 153 H (70-110) mg/dL C-Reactive Protein (<1.0) mg/dL 08/05/24 08/05/24 Range/Units 05:28 06:14 RBC (4.40-5.60) 10*6/uL Hgb (13.0-17.0) g/dL Hct (39.6-50.0) % MCV (80.0-97.0) fL MCH (27.0-32.0) pg MCHC (32.0-37.0) g/dL RDW (11.5-14.5) % MPV (9.5-12.2) fL ESR (0-20) mm/Hr Sodium 133 L (137-145) mmol/L Glucose 181 H (74-99) mg/dL POC Glucose (mg/dL) 185 H (70-110) mg/dL C-Reactive Protein 4.0 H (<1.0) mg/dL Microbiology - Last 24 Hours (Table) 08/04/24 00:00 Gram Stain - Preliminary Foot - Right
--- NOTE | 2024-08-05 15:53 | P.PN ---
Subjective Progress Note Date: 08/05/24 Principal diagnosis: Reason for follow-up is right diabetic foot ulcer osteomyelitis Patient is a 58-year-old male with a past medical history significant for type 2 diabetes mellitus hypertension PE syncope reflux history of right diabetic foot infection/osteomyelitis and has been treated with multiple courses of antibiotic presented hospital worsening pain swelling redness of right foot concerning for diabetic foot infection with osteomyelitis. On today's evaluation that is 08/05/2024,the patient remains to be afebrile, patient is on room air not requiring supplemental oxygen and denies any shortness of breath no chest pain or cough.Patient denies having any nausea or vomiting, no abdominal pain and no diarrhea. Pain to the right foot is currently controlled. Patient white count 6.23 ESR 67 creatinine 0.75 cultures with Staph aureus foot MRI osteomyelitis of the first metatarsal and distal aspect of the second metatarsal Objective - Vital Signs Vital signs: Vital Signs Temp 98.3 F 08/05/24 07:13 Pulse 82 08/05/24 11:48 Resp 17 08/05/24 07:13 BP 104/64 08/05/24 11:48 Pulse Ox 97 08/05/24 07:13 FiO2 Intake & Output 08/04/24 08/05/24 08/05/24 18:59 06:59 18:59 Intake Total 1080 Balance 1080 Weight 101.605 kg Intake: Oral 1080 Other: # Voids 1 - Exam GENERAL DESCRIPTION: Middle-age male lying in bed in no distress RESPIRATORY SYSTEM: Unlabored breathing , decreased breath sounds at bases HEART: S1 S2 regular rate and rhythm , ABDOMEN: Soft , no tenderness EXTREMITIES: Right foot is currently dressed - Labs CBC & Chem 7: 08/05/24 05:28 08/05/24 05:28 Labs: Abnormal Lab Results - Last 24 Hours (Table) 08/04/24 08/04/24 08/04/24 Range/Units 13:20 17:37 21:15 RBC (4.40-5.60) 10*6/uL Hgb (13.0-17.0) g/dL Hct (39.6-50.0) % MCV (80.0-97.0) fL MCH (27.0-32.0) pg MCHC (32.0-37.0) g/dL RDW (11.5-14.5) % MPV (9.5-12.2) fL Sodium (137-145) mmol/L Glucose (74-99) mg/dL POC Glucose (mg/dL) 156 H 227 H 153 H (70-110) mg/dL C-Reactive Protein (<1.0) mg/dL 08/05/24 08/05/24 08/05/24 Range/Units 05:28 05:28 06:14 RBC 4.31 L (4.40-5.60) 10*6/uL Hgb 10.3 L (13.0-17.0) g/dL Hct 32.8 L (39.6-50.0) % MCV 76.1 L (80.0-97.0) fL MCH 23.9 L (27.0-32.0) pg MCHC 31.4 L (32.0-37.0) g/dL RDW 15.3 H (11.5-14.5) % MPV 9.1 L (9.5-12.2) fL Sodium 133 L (137-145) mmol/L Glucose 181 H (74-99) mg/dL POC Glucose (mg/dL) 185 H (70-110) mg/dL C-Reactive Protein 4.0 H (<1.0) mg/dL 08/05/24 Range/Units 11:58 RBC (4.40-5.60) 10*6/uL Hgb (13.0-17.0) g/dL Hct (39.6-50.0) % MCV (80.0-97.0) fL MCH (27.0-32.0) pg MCHC (32.0-37.0) g/dL RDW (11.5-14.5) % MPV (9.5-12.2) fL Sodium (137-145) mmol/L Glucose (74-99) mg/dL POC Glucose (mg/dL) 157 H (70-110) mg/dL C-Reactive Protein (<1.0) mg/dL Microbiology - Last 24 Hours (Table) 08/04/24 00:04 Blood Culture - Preliminary Blood 08/04/24 00:00 Gram Stain - Preliminary Foot - Right Wound Culture - Preliminary Presumptive Staph aureus Assessment and Plan (1) Cellulitis of right lower limb Current Visit: Yes Status: Acute Code(s): L03.115 - CELLULITIS OF RIGHT LO WER LIMB SNOMED Code(s): 01431627746190630 (2) Diabetic foot infection Current Visit: Yes Status: Acute Code(s): E11.628 - TYPE 2 DIABETES MELLITUS WITH OTHER SKIN COMPLICATIONS; L08.9 - LOCAL INFECTION OF THE SKIN AND SUBCUTANEOUS TISSUE, UNSP SNOMED Code(s): 344996311 (3) Foot osteomyelitis, right Current Visit: No Status: Acute Code(s): M86.9 - OSTEOMYELITIS, UNSPECIFIED SNOMED Code(s): 1336163083377077 Plan: 1patient presented to hospital with increasing pain swelling redness to the r ight lower extremity in this patient who did have right diabetic foot ulcer on the plantar aspect now with evidence of secondary cellulitis involving the right foot and lower extremity will need to cover for the gram-positive as well as gram-negative pathogen as the patient has grown multiple pathogen from his wound in the past 2- MRI of the right foot has been suggestive of osteomyelitis involving the first and the second metatarsal did have elevated CRP and ESR 3-we will do surgery planning for surgical debridement versus transmetatarsal amputation 4-patient will be treated with a vancomycin Rocephin and Flagyl while waiting for the culture to finalize Dictation was produced using [employer] dictation software. please excuse any grammatical, word or spelling errors. Time with Patient: Less than 30
[2024-08-05 16:36] LABS: Glucose,Whole Blood 135 mg/dL (70-110)
[2024-08-05 16:49] LABS: Erythrocyte Sedimentation Rate 38 mm/Hr (0-20)
--- NOTE | 2024-08-05 18:41 | CA ---
Transthoracic Echo Report Name: Sven Chavez Age: 58 Gender: M : 1965 Exam Date: 08/05/2024 14:23 Exam Location: [facility] Ht (in): 67 Wt (lb): 224 Ordering Physician: Ольга Abdalla Attending/Referring Phys: [id number], Lianne Principal Technical Architect Asuncion Fonseca RDCS Procedure CPT: Indications: RV eval Cardiac Hx: Technical Quality: Good Contrast 1: Total Dose (mL): Contrast 2: Total Dose (mL): MEASUREMENTS (Male / Female) Normal Values 2D ECHO LV Diastolic Diameter PLAX 3.5 cm 4.2 - 5.9 / 3.9 - 5.3 cm LV Systolic Diameter PLAX 2.7 cm IVS Diastolic Thickness 1.5 cm 0.6 - 1.0 / 0.6 - 0.9 cm LVPW Diastolic Thickness 1.5 cm 0.6 - 1.0 / 0.6 - 0.9 cm LV Relative Wall Thickness 0.9 RV Internal Dim ED PLAX 4.7 cm LV Diastolic Volume MOD BP 73.7 cm??? 67 - 155 / 56 - 104 cm??? LV Systolic Volume MOD BP 36.6 cm??? 22 - 58 / 19 - 49 cm??? LV Ejection Fraction MOD BP 50.3 % >= 55 % LV Cardiac Index MOD BP 1278.7 cm???/min???m??? LV Diastolic Volume MOD 4C 91.0 cm??? LV Systolic Volume MOD 4C 46.4 cm??? LV Ejection Fraction MOD 4C 49.0 % LV Cardiac Index MOD 4C 1538.1 cm???/min???m??? LV Diastolic Length 4C 8.7 cm LV Systolic Length 4C 7.2 cm LV Diastolic Volume MOD 2C 46.4 cm??? LV Systolic Volume MOD 2C 24.2 cm??? LV Ejection Fraction MOD 2C 47.9 % LV Cardiac Index MOD 2C 767.9 cm???/min???m??? LV Diastolic Length 2C 6.5 cm LV Systolic Length 2C 5.5 cm LA Volume 53.0 cm??? 18 - 58 / 22 - 52 cm??? LA Volume Index 23.8 cm???/m??? 16 - 28 cm???/m??? M-MODE Aortic Root Diameter MM 4.3 cm DOPPLER MV Area PHT 3.5 cm??? Mitral E Point Velocity 68.4 cm/s Mitral A Point Velocity 69.9 cm/s Mitral E to A Ratio 1.0 MV Deceleration Time 214.1 ms TR Peak Velocity 331.3 cm/s TR Peak Gradient 43.9 mmHg Right Ventricular Systolic Press 48.7 mmHg FINDINGS Left Ventricle Left ventricular ejection fraction is estimated at 50 %. Small left ventricular cavity. D shape LV. Moderately increased septal wall thickness. Mildly decreased left ventricular ejection fraction. Right Ventricle Severe right ventricular dilatation. Moderate pulmonary hypertension. Mildly reduced right ventricular global systolic function. Right ventricular systolic pressure estimated at 49 mm hg. Right Atrium Severe right atrial dilatation. No right atrial thrombus or mass seen. Left Atrium Normal left atrial size. No left atrial thrombus or mass present. Mitral Valve Structurally normal mitral valve. No mitral stenosis, regurgitation or prolapse. Aortic Valve Trileaflet aortic valve. Aortic valve sclerosis. No aortic valve stenosis or regurgitation. Tricuspid Valve Structurally normal tricuspid valve. [id number] tricuspid regurgitation. Pulmonic Valve Pulmonic valve not well visualized. Trace pulmonic regurgitation. Pericardium No pericardial effusion. Aorta Moderate aortic dilatation at the level of the sinuses of valsalva 43 MM CONCLUSIONS Low normal LV systolic function with EF at 50% Moderate pulmonary hypertension Severe RV enlargement Moderate to severe tricuspid regurgitation No pericardial effusion Previewed by: Dr. Dayron Edwards MD (Electronically Signed) Final Date: 05 Aug 2024 18:41
[2024-08-05 20:34] LABS: Glucose,Whole Blood 186 mg/dL (70-110)
[2024-08-06 02:02] LABS: Glucose,Whole Blood 110 mg/dL (70-110)
[2024-08-06] MEDS: HYDROmorphone 1 MG/ML 1 ML SYRINGE IVP STA (03:14)
[2024-08-06 05:39] LABS: HCT 33.1 % (39.6-50.0); HGB 10.5 g/dL (13.0-17.0); MCH 24.1 pg (27.0-32.0); MCHC 31.7 g/dL (32.0-37.0); MCV 76.1 fL (80.0-97.0); Mean Platelet Volume 8.8 fL (9.5-12.2); Platelet Count 389 10*3/uL (140-440); RBC 4.35 10*6/uL (4.40-5.60); RDW 15.4 % (11.5-14.5); WBC 8.72 10*3/uL (4.50-10.00)
[2024-08-06 06:05] LABS: Glucose,Whole Blood 114 mg/dL (70-110)
[2024-08-06] MEDS: HYDROmorphone 1 MG/ML 1 ML SYRINGE IVP PRN (09:48)
--- NOTE | 2024-08-06 09:54 | P.PN ---
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 08/05/24: Patient seen and examined at bedside. He reports pain on right leg. 08/06/24: Patient evaluated at bedside. He reports pain on his right lower extremity. He also reports dizziness when he bends over. Review of systems: Pertinent positives and negatives as discussed in HPI, a complete review of systems was performed and all other systems are negative. Vitals: Signs Reviewed and stable Physical examination: General: nontoxic, no distress, appears at stated age Derm: warm, dry, intact Head: atraumatic, normocephalic, symmetric Eyes: EOMI, anicteric sclera Mouth: no lip lesion, mucus membranes moist Cardiovascular: S1 S2 reg, no murmur, rubs, or gallops Lungs: CTA bilateral, no rales, no accessory muscle use Abdominal: soft, non-tender to palpataion, no appreciable organomegaly Extremities: no gross muscle atrophy, no edema, no contractures Back: 1st degree alonso located across whole back with some minor blistering and scratch echevarria Foot: Right foot bandaged, erythema noted up to the midshin with associated warmth and slight tenderness to palpation, erythema on the mid allen on the left leg with tenderness to palpation Neuro: Alert, Oriented, CNII-XII grossly intact, gait normal Psych: well appearing, appropriate affect Data Reviewed Today: Labs: Hemoglobin 10.5, MCV 76.1, RDW 15.4, glucose 114 Microbiology: Wound culture shows presumptive Staph aureus Blood culture shows no growth at 24 hours Imaging: Echocardiogram shows EF 50%, low normal LV systolic function, moderate pulmonary hypertension, severe RV enlargement, moderate to severe tricuspid regurgitation, no pericardial effusion Assessment/Plan: 58-year-old man PMH of insulin-dependent diabetes mellitus, hypertension, GERD who is presenting to the emergency department due to chronic right foot infection in the presence of alonso on his back from a heating pad. He has been diagnosed with osteomyelitis of right foot and is currently on Vancomycin, Rocephin, Flagyl and is being considered for surgical debridement possible TMA. Active: #. Osteomyelitis of right first metatarsal, and possibly second metatarsal #. Diabetic foot ulcer on the right #. History of osteomyelitis with MRSA and VRE positive #. Cellulitis of the right lower extremity WBC is not elevated patient denies any fever; dry, nonweightbearing wound at the base of the right big toe with associated erythema midway up the right foot Received 2 g Rocephin once in the ED, initiated on vancomycin CRP 5.9, ESR 67 Foot MRI shows previous 1st and 2nd toe amputation with a deep stump was extending to first metatarsal osteotomy region, underlying signal changes are compatible with extensive contiguous osteomyelitis of the first metatarsal sparing only the metatarsal base, additional findings suspicion for osteomyelitis also involving the distal aspect of the second metatarsal, diffuse soft tissue swelling and plantar muscle edema Blood culture shows no growth at 24 hours Wound culture shows presumptive Staph aureus Continue Vancomycin, Rocephin and Flagyl Infectious disease is following Vascular surgery consulted, recommend surgical debridement possible TMA on 08/09/24 Wound care consulted, recommend Apply absorptive silver dry, dry gauze, rolled gauze.Secure with paper tape.Change Thursday.Patient return to wound care center on August 12 at his regularly scheduled appointment time.Continue to offload. #. 1st degree burn on back Bacitracin ointment and menthol-camphor lotion #. Insulin-dependent diabetes mellitus Most recent hemoglobin A1c on 06/01/2024 showed to be 14.8% Hold oral antihyperglycemic agents Continue Lantus 20 units BID Continue Insulin Sliding scale and ACHS blood glucose monitoring Monitor for hypoglycemia #. Persistent dysphagia to solids and liquids Had previously been evaluated by speech-language pathology Was initiated on metoclopramide 10 mg ACHS during previous visit, which he states helped significantly Continue metoclopramide 10 mg ACHS #. Mild hyponatremia Na 133 Monitor BMP #. Severe pulmonary hypertension #. Diastolic HFpEF not in exacerbation #. history of syncopal episode #. History of PE on Eliquis Continue aspirin 81 mg daily, Eliquis 5 mg twice daily, metoprolol tartrate 25 mg twice daily, Imdur 30 mg daily Orthostatic vitals supine 102/66, sitting 104/64, standing 103/62 Echocardiogram shows EF 50%, low normal LV systolic function, moderate pulmonary hypertension, severe RV enlargement, moderate to severe tricuspid regurgitation, no pericardial effusion Cardiology consulted Chronic: #. Hypertension #. Atrial fibrillation #. Hyperlipidemia #. History of CAD Continue Lisinopril 5 mg PO daily, Eliquis 5 mg p.o. twice daily, aspirin 81 mg p.o. daily, fenofibrate 54 mg p.o. at bedtime, Imdur 30 mg p.o. daily, metoprolol 25 mg p.o. twice daily F: None E: Replete as required N: Consistent carbohydrate diet A: Ambulatory DVT prophylaxis: Eliquis 5 mg PO BID Code status: Full Code Anticipated discharge place: Pending clinical course Anticipated discharge time: Pending clinical course Dictation was produced using [employer] dictation software. please excuse any grammatical, word or spelling errors. Sylvester Weinberg MD PGY-1 IM I have seen and evaluated the patient today. Discussed with the resident and agree with the residents finding and plan as documented in the resident's note. Changes highlighted in blue font. Complains of worsening pain. Dilaudid frequency increased from Q6 to Q3H PRN. Imdur has been stopped by Cardiology. Echo as above. Orthostats were negative as well. Continue Vancomycin, Flagyl, Rocephin per ID recommendations. Eliquis will need to be held for 48H prior to surgery. Awaiting Vascular Sx recommendations. Objective - Vital Signs Vital signs: Vital Signs Temp 98 F 08/06/24 00:11 Pulse 80 08/06/24 03:06 Resp 17 08/06/24 00:11 BP 113/62 08/06/24 03:06 Pulse Ox 99 08/06/24 00:11 FiO2 Intake & Output 08/05/24 08/06/24 08/06/24 18:59 06:59 18:59 Other: # Voids 2 1 # Bowel Movements 1 2 - Labs CBC & Chem 7: 08/06/24 04:40 08/06/24 12:40 Labs: Abnormal Lab Results - Last 24 Hours (Table) 08/05/24 08/05/24 08/05/24 Range/Units 05:28 11:58 16:34 RBC (4.40-5.60) 10*6/uL Hgb (13.0-17.0) g/dL Hct (39.6-50.0) % MCV (80.0-97.0) fL MCH (27.0-32.0) pg MCHC (32.0-37.0) g/dL RDW (11.5-14.5) % MPV (9.5-12.2) fL ESR 38 H (0-20) mm/Hr POC Glucose (mg/dL) 157 H 135 H (70-110) mg/dL 08/05/24 08/06/24 08/06/24 Range/Units 20:33 04:40 06:04 RBC 4.35 L (4.40-5.60) 10*6/uL Hgb 10.5 L (13.0-17.0) g/dL Hct 33.1 L (39.6-50.0) % MCV 76.1 L (80.0-97.0) fL MCH 24.1 L (27.0-32.0) pg MCHC 31.7 L (32.0-37.0) g/dL RDW 15.4 H (11.5-14.5) % MPV 8.8 L (9.5-12.2) fL ESR (0-20) mm/Hr POC Glucose (mg/dL) 186 H 114 H (70-110) mg/dL Microbiology - Last 24 Hours (Table) 08/04/24 00:04 Blood Culture - Preliminary Blood 08/04/24 00:00 Gram Stain - Preliminary Foot - Right Wound Culture - Preliminary Presumptive Staph aureus
[2024-08-06 11:27] LABS: Glucose,Whole Blood 99 mg/dL (70-110)
[2024-08-06] MEDS: VANCOMYCIN TROUGH DUE 1 EACH MISC MISCELLANE ONE (12:47)
[2024-08-06 13:24] LABS: African American GFR (CKD) >90 (>60 ml/min/1.73 sqM); Anion Gap 10 mmol/L; Blood Urea Nitrogen 20 mg/dL (9-20); Calcium 9.1 mg/dL (8.4-10.2); Carbon Dioxide 23 mmol/L (22-30); Chloride 106 mmol/L (98-107); Glucose 96 mg/dL (74-99); Non-African American GFR(CKD) >90 (>60 ml/min/1.73 sqM); Potassium 4.7 mmol/L (3.5-5.1); Sodium 139 mmol/L (137-145)
--- NOTE | 2024-08-06 13:47 | P.PN ---
Subjective Progress Note Date: 08/06/24 Patient indicated his foot is slightly improved and feeling. He denies chills or fevers. Objective - Vital Signs Vital signs: Vital Signs Temp 98.5 F 08/06/24 06:59 Pulse 84 08/06/24 06:59 Resp 18 08/06/24 06:59 BP 135/80 08/06/24 06:59 Pulse Ox 97 08/06/24 06:59 FiO2 Intake & Output 08/05/24 08/06/24 08/06/24 18:59 06:59 18:59 Other: Voiding Method Urinal # Voids 2 1 # Bowel Movements 1 2 - Exam Patient is awake, alert in no apparent distress. The wound on the plantar surface of his foot at the first metatarsal head is clean however does have some serous drainage. There is no surrounding cellulitic reaction. - Labs CBC & Chem 7: 08/06/24 04:40 08/06/24 12:40 Labs: Abnormal Lab Results - Last 24 Hours (Table) 08/05/24 08/05/24 08/05/24 Range/Units 05:28 16:34 20:33 RBC (4.40-5.60) 10*6/uL Hgb (13.0-17.0) g/dL Hct (39.6-50.0) % MCV (80.0-97.0) fL MCH (27.0-32.0) pg MCHC (32.0-37.0) g/dL RDW (11.5-14.5) % MPV (9.5-12.2) fL ESR 38 H (0-20) mm/Hr POC Glucose (mg/dL) 135 H 186 H (70-110) mg/dL 08/06/24 08/06/24 Range/Units 04:40 06:04 RBC 4.35 L (4.40-5.60) 10*6/uL Hgb 10.5 L (13.0-17.0) g/dL Hct 33.1 L (39.6-50.0) % MCV 76.1 L (80.0-97.0) fL MCH 24.1 L (27.0-32.0) pg MCHC 31.7 L (32.0-37.0) g/dL RDW 15.4 H (11.5-14.5) % MPV 8.8 L (9.5-12.2) fL ESR (0-20) mm/Hr POC Glucose (mg/dL) 114 H (70-110) mg/dL Microbiology - Last 24 Hours (Table) 08/04/24 00:00 Gram Stain - Preliminary Foot - Right Wound Culture - Preliminary Staphylococcus aureus Escherichia coli 08/04/24 00:04 Blood Culture - Preliminary Blood Assessment and Plan Assessment: Diabetic foot wound plantar surface right foot. Plan: Will continue IV antibiotics for the moment. Plan for surgical debridement and application of skin substitute. Patient clearly understands potential need for transmetatarsal or other type of amputation. Time with Patient: Less than 30
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
--- NOTE | 2024-08-06 15:40 | P.PN ---
Subjective Progress Note Date: 08/06/24 Principal diagnosis: Reason for follow-up is right diabetic foot ulcer osteomyelitis Patient is a 58-year-old male with a past medical history significant for type 2 diabetes mellitus hypertension PE syncope reflux history of right diabetic foot infection/osteomyelitis and has been treated with multiple courses of antibiotic presented hospital worsening pain swelling redness of right foot concerning for diabetic foot infection with osteomyelitis. On today's evaluation that is 08/06/2024, the patient continues to be afebrile, the patient is on room air and breathing comfortably, the Pt denies having any chest pain or cough, the patient denies having any abdominal pain no vomiting or any diarrhea, pain in the right foot is currently controlled. Patient did have creatinine 0.94 white count is 8.75 local culture currently growing MSSA and E. coli Objective - Vital Signs Vital signs: Vital Signs Temp 98.2 F 08/06/24 13:53 Pulse 71 08/06/24 13:53 Resp 17 08/06/24 13:53 BP 107/67 08/06/24 13:53 Pulse Ox 98 08/06/24 13:53 FiO2 Intake & Output 08/05/24 08/06/24 08/06/24 18:59 06:59 18:59 Other: Voiding Method Urinal # Voids 2 1 # Bowel Movements 1 2 - Exam GENERAL DESCRIPTION: Middle-age male lying in bed in no distress RESPIRATORY SYSTEM: Unlabored breathing , decreased breath sounds at bases HEART: S1 S2 regular rate and rhythm , ABDOMEN: Soft , no tenderness EXTREMITIES: Right foot is currently dressed - Labs CBC & Chem 7: 08/06/24 04:40 08/06/24 12:40 Labs: Abnormal Lab Results - Last 24 Hours (Table) 08/05/24 08/05/24 08/05/24 Range/Units 05:28 16:34 20:33 RBC (4.40-5.60) 10*6/uL Hgb (13.0-17.0) g/dL Hct (39.6-50.0) % MCV (80.0-97.0) fL MCH (27.0-32.0) pg MCHC (32.0-37.0) g/dL RDW (11.5-14.5) % MPV (9.5-12.2) fL ESR 38 H (0-20) mm/Hr POC Glucose (mg/dL) 135 H 186 H (70-110) mg/dL 08/06/24 08/06/24 Range/Units 04:40 06:04 RBC 4.35 L (4.40-5.60) 10*6/uL Hgb 10.5 L (13.0-17.0) g/dL Hct 33.1 L (39.6-50.0) % MCV 76.1 L (80.0-97.0) fL MCH 24.1 L (27.0-32.0) pg MCHC 31.7 L (32.0-37.0) g/dL RDW 15.4 H (11.5-14.5) % MPV 8.8 L (9.5-12.2) fL ESR (0-20) mm/Hr POC Glucose (mg/dL) 114 H (70-110) mg/dL Microbiology - Last 24 Hours (Table) 08/04/24 00:00 Gram Stain - Preliminary Foot - Right Wound Culture - Preliminary Staphylococcus aureus Escherichia coli 08/04/24 00:04 Blood Culture - Preliminary Blood Assessment and Plan (1) Cellulitis of right lower limb Current Visit: Yes Status: Acute Code(s): L03.115 - CELLULITIS OF RIGHT LOWER LIMB SNOMED Code(s): 05910008543752211 (2) Diabetic foot infection Current Visit: Yes Status: Acute Code(s): E11.628 - TYPE 2 DIABETES MELLITUS WITH OTHER SKIN COMPLICATIONS; L08.9 - LOCAL INFECTION OF THE SKIN AND SUBCUTANEOUS TISSUE, UNSP SNOMED Code(s): 288258142 (3) Foot osteomyelitis, right Current Visit: No Status: Acute Code(s): M86.9 - OSTEOMYELITIS, UNSPECIFIED SNOMED Code(s): 1957946546561973 Plan: 1patient presented to hospital with increasing pain swelling redness to the right lower extremity in this patient who did have right diabetic foot ulcer on the plantar aspect now with evidence of secondary cellulitis involving the right foot and lower extremity will need to cover for the gram-positive as well as gram-negative pathogen as the patient has grown multiple pathogen from his wound in the past 2- MRI of the right foot has been suggestive of osteomyelitis involving the first and the second metatarsal did have elevated CRP and ESR 3-vascular surgery planning for surgical debridement versus transmetatarsal amputation scheduled for Thursday 4-patient local culture growing E. coli and MSSA, will be treated with Rocephin and Flagyl, will discontinue vancomycin Dictation was produced using [employer] dictation software. please excuse any grammatical, word or spelling errors.
[2024-08-06 17:36] LABS: Glucose,Whole Blood 88 mg/dL (70-110)
[2024-08-06 20:53] LABS: Glucose,Whole Blood 112 mg/dL (70-110)
[2024-08-07 04:59] LABS: HCT 34.1 % (39.6-50.0); HGB 10.5 g/dL (13.0-17.0); MCH 23.6 pg (27.0-32.0); MCHC 30.8 g/dL (32.0-37.0); MCV 76.8 fL (80.0-97.0); Mean Platelet Volume 8.9 fL (9.5-12.2); Platelet Count 398 10*3/uL (140-440); RBC 4.44 10*6/uL (4.40-5.60); RDW 15.6 % (11.5-14.5); WBC 6.09 10*3/uL (4.50-10.00)
[2024-08-07 05:15] LABS: African American GFR (CKD) >90 (>60 ml/min/1.73 sqM); Anion Gap 8 mmol/L; Blood Urea Nitrogen 17 mg/dL (9-20); Calcium 8.7 mg/dL (8.4-10.2); Carbon Dioxide 25 mmol/L (22-30); Chloride 104 mmol/L (98-107); Glucose 85 mg/dL (74-99); Non-African American GFR(CKD) >90 (>60 ml/min/1.73 sqM); Potassium 4.1 mmol/L (3.5-5.1); Sodium 137 mmol/L (137-145)
[2024-08-07 06:38] LABS: Glucose,Whole Blood 72 mg/dL (70-110)
[2024-08-07 07:54] LABS: Glucose,Whole Blood 65 mg/dL (70-110)
[2024-08-07 08:14] LABS: Glucose,Whole Blood 69 mg/dL (70-110)
[2024-08-07 08:36] LABS: Glucose,Whole Blood 93 mg/dL (70-110)
[2024-08-07 11:24] LABS: Glucose,Whole Blood 125 mg/dL (70-110)
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
--- NOTE | 2024-08-07 14:43 | P.PN ---
Subjective Progress Note Date: 08/07/24 Principal diagnosis: Reason for follow-up is right diabetic foot ulcer osteomyelitis Patient is a 58-year-old male with a past medical history significant for type 2 diabetes mellitus hypertension PE syncope reflux history of right diabetic foot infection/osteomyelitis and has been treated with multiple courses of antibiotic presented hospital worsening pain swelling redness of right foot concerning for diabetic foot infection with osteomyelitis. On today's evaluation that is 08/07/2024, Patient is afebrile patient is currently on room air and denies having any shortness of breath, the patient denies any chest pain or cough, the patient denies any nausea vomiting did not have any abdominal pain and no diarrhea pain to the right foot is currently controlled. No new lab has been repeated today right foot culture with E. coli that is resistant to ceftriaxone but sensitive to cefepime with MSSA Objective - Vital Signs Vital signs: Vital Signs Temp 97.9 F 08/07/24 13:56 Pulse 77 08/07/24 13:56 Resp 18 08/07/24 13:56 BP 109/68 08/07/24 13:56 Pulse Ox 97 08/07/24 13:56 FiO2 Intake & Output 08/06/24 08/07/24 08/07/24 18:59 06:59 18:59 Other: Voiding Method Urinal Urinal # Voids 3 3 - Exam GENERAL DESCRIPTION: Middle-age male lying in bed in no distress RESPIRATORY SYSTEM: Unlabored breathing , decreased breath sounds at bases HEART: S1 S2 regular rate and rhythm , ABDOMEN: Soft , no tenderness EXTREMITIES: Right foot is currently dressed - Labs CBC & Chem 7: 08/07/24 04:48 08/07/24 04:48 Labs: Abnormal Lab Results - Last 24 Hours (Table) 08/06/24 08/07/24 08/07/24 Range/Units 20:51 04:48 07:52 Hgb 10.5 L (13.0-17.0) g/dL Hct 34.1 L (39.6-50.0) % MCV 76.8 L (80.0-97.0) fL MCH 23.6 L (27.0-32.0) pg MCHC 30.8 L (32.0-37.0) g/dL RDW 15.6 H (11.5-14.5) % MPV 8.9 L (9.5-12.2) fL POC Glucose (mg/dL) 112 H 65 L (70-110) mg/dL 08/07/24 08/07/24 Range/Units 08:13 11:22 Hgb (13.0-17.0) g/dL Hct (39.6-50.0) % MCV (80.0-97.0) fL MCH (27.0-32.0) pg MCHC (32.0-37.0) g/dL RDW (11.5-14.5) % MPV (9.5-12.2) fL POC Glucose (mg/dL) 69 L 125 H (70-110) mg/dL Microbiology - Last 24 Hours (Table) 08/04/24 00:00 Gram Stain - Preliminary Foot - Right Wound Culture - Preliminary Escherichia coli Staphylococcus aureus 08/04/24 00:04 Blood Culture - Preliminary Blood Assessment and Plan (1) Cellulitis of right lower limb Current Visit: Yes Status: Acute Code(s): L03.115 - CELLULITIS OF RIGHT LOWER LIMB SNOMED Code(s): 49201881176468694 (2) Diabetic foot infection Current Visit: Yes Status: Acute Code(s): E11.628 - TYPE 2 DIABETES MELLITUS WITH OTHER SKIN COMPLICATIONS; L08.9 - LOCAL INFECTION OF THE SKIN AND SUBCUTANEOUS TISSUE, UNSP SNOMED Code(s): 540377021 (3) Foot osteomyelitis, right Current Visit: No Status: Acute Code(s): M86.9 - OSTEOMYELITIS, UNSPECIFIED SNOMED Code(s): 7299406816666250 Plan: 1patient presented to hospital with increasing pain swelling redness to the right lower extremity in this patient who did have right diabetic foot ulcer on the plantar aspect now with evidence of secondary cellulitis involving the right foot and lower extremity will need to cover for the gram-positive as well as gram-negative pathogen as the patient has grown multiple pathogen from his wound in the past 2- MRI of the right foot has been suggestive of osteomyelitis involving the first and the second metatarsal did have elevated CRP and ESR 3-vascular surgery planning for surgical debridement versus transmetatarsal amputation scheduled for Thursday 4-patient local culture growing E. coli which is resistant to ceftriaxone sens itive to cefepime and MSSA, 5I will discontinue Rocephin and start the patient on cefepime 2 g every 8 hours continue with the Flagyl Dictation was produced using [employer] dictation software. please excuse any grammatical, word or spelling errors. Time with Patient: Less than 30
[2024-08-07 16:32] LABS: Glucose,Whole Blood 122 mg/dL (70-110)
[2024-08-07] MEDS: CEFEPIME 2 GM in SODIUM CHLORIDE 0.9% 100 ML IVPB SCH (16:57)
[2024-08-07 20:21] LABS: Glucose,Whole Blood 155 mg/dL (70-110)
[2024-08-08] MEDS: CEFEPIME 2 GM in SODIUM CHLORIDE 0.9% 100 ML IVPB SCH (03:07)
[2024-08-08 06:15] LABS: Glucose,Whole Blood 88 mg/dL (70-110)
[2024-08-08 06:32] LABS: HCT 35.7 % (39.6-50.0); MCH 23.7 pg (27.0-32.0); MCHC 30.8 g/dL (32.0-37.0); MCV 76.8 fL (80.0-97.0); Platelet Count 396 10*3/uL (140-440); RBC 4.65 10*6/uL (4.40-5.60); RDW 15.6 % (11.5-14.5); WBC 6.97 10*3/uL (4.50-10.00)
[2024-08-08 07:07] LABS: African American GFR (CKD) >90 (>60 ml/min/1.73 sqM); Anion Gap 8 mmol/L; Blood Urea Nitrogen 17 mg/dL (9-20); Calcium 9.2 mg/dL (8.4-10.2); Carbon Dioxide 26 mmol/L (22-30); Chloride 104 mmol/L (98-107); Glucose 90 mg/dL (74-99); Non-African American GFR(CKD) >90 (>60 ml/min/1.73 sqM); Potassium 4.6 mmol/L (3.5-5.1); Sodium 138 mmol/L (137-145)
--- NOTE | 2024-08-08 09:53 | P.PN ---
Subjective Progress Note Date: 08/08/24 Principal diagnosis: Infected right foot wound, osteomyelitis Patient is seen and examined today as a follow-up. He is scheduled tomorrow for right foot debridement possible TMA. Patient denies any fevers or chills. Wound culture showing E. coli and Staph aureus. Objective - Vital Signs Vital signs: Vital Signs Temp 98.0 F 08/08/24 07:16 Pulse 73 08/08/24 07:16 Resp 17 08/08/24 07:16 BP 144/72 08/08/24 07:16 Pulse Ox 96 08/08/24 07:16 FiO2 Intake & Output 08/07/24 08/08/24 08/08/24 18:59 06:59 18:59 Intake Total 240 Balance 240 Intake: Oral 240 Other: Voiding Method Urinal # Voids 3 3 - Exam General appearance: The patient is alert, oriented, appears in no acute distress. HET: Head is normocephalic and atraumatic. Pupils are equal and reactive. Neck: Supple. Heart: Regular. Lungs: Equal expansion, normal respiratory effort. Abdomen: Soft, nondistended. Extremities: Right foot with dressing clean dry and intact. Neurological: No focal deficits. Alert and oriented. - Labs CBC & Chem 7: 08/08/24 05:48 08/08/24 05:48 Labs: Abnormal Lab Results - Last 24 Hours (Table) 08/07/24 08/07/24 08/07/24 Range/Units 11:22 16:30 20:19 Hgb (13.0-17.0) g/dL Hct (39.6-50.0) % MCV (80.0-97.0) fL MCH (27.0-32.0) pg MCHC (32.0-37.0) g/dL RDW (11.5-14.5) % MPV (9.5-12.2) fL POC Glucose (mg/dL) 125 H 122 H 155 H (70-110) mg/dL 08/08/24 Range/Units 05:48 Hgb 11.0 L (13.0-17.0) g/dL Hct 35.7 L (39.6-50.0) % MCV 76.8 L (80.0-97.0) fL MCH 23.7 L (27.0-32.0) pg MCHC 30.8 L (32.0-37.0) g/dL RDW 15.6 H (11.5-14.5) % MPV 9.0 L (9.5-12.2) fL POC Glucose (mg/dL) (70-110) mg/dL Microbiology - Last 24 Hours (Table) 08/04/24 00:00 Gram Stain - Preliminary Foot - Right Wound Culture - Preliminary Escherichia coli Staphylococcus aureus 08/04/24 00:04 Blood Culture - Preliminary Blood Assessment and Plan Assessment: 1. Right foot with infected diabetic ulcer 2. Osteomyelitis 3. Diabetes mellitus 4. History of pulmonary embolism on Eliquis 5. History of heart failure 6. Hypertension Plan: 1. Continue with local wound care per recommendations from wound care team 2. Continue to biotics per recommendations from infectious disease 3. N.p.o. after midnight 4. Continue to hold Eliquis 5. Patient scheduled for right foot surgical debridement possible transmetatarsal amputation tomorrow. This was discussed with patient, he states he had no questions and agreeable to proceed. Thank you for this consultation, we will continue to follow. The impression and plan of care has been dictated as directed. I performed a history and examination of this patient, discussed the same with the dictator. I agree with the dictator's note ,documented as a scribe. Any additional findings or plans will be noted.
--- NOTE | 2024-08-08 11:34 | P.PN ---
Subjective Progress Note Date: 08/08/24 Principal diagnosis: I have seen and evaluated the patient today. Discussed with the resident and agree with the residents finding and plan as documented in the resident's note. Changes highlighted in blue font. Hospital course: 58-year-old man PMH of insulin-dependent diabetes mellitus with peripheral neuropathy, HFpEF (EF 50-55%), history of right foot osteomyelitis MRSA and VRE positive, history of PE currently on Eliquis, CAD and heart cath on 03/23/2024 without placement of stent, severe pulmonary hypertension, GERD who is presenting to the emergency department due to chronic right foot infection in the presence of alonso on his back from a heating pad. 08/05/24: Patient seen and examined at bedside. He reports pain on right leg. 08/06/24: Patient evaluated at bedside. He reports pain on his right lower extremity. He also reports dizziness when he bends over. 08/07 Patient was seen and examined. Reports 08/16 pain in his right foot. Tentative plans for OR on Thursday. Maintained on Vancomycin dosed per pharmacy, Rocephin 2g IV QD and Flagyl 500 mg IV TID. WCx growing S. aureus and E. coli. CBC and BMP significant for Hg 10.5, Hct 34.1, MCV 76.8. POC glucose as low as 65 over the past 24H. 08/08/24: Patient seen and examined at bedside today. He still reports pain on the right foot. Along with that he also experiences nausea and one episode of vomiting that he attributes to his diabetic gastroparesis. Review of systems: Pertinent positives and negatives as discussed in HPI, a complete review of systems was performed and all other systems are negative. Vitals: Signs Reviewed and stable Physical examination: General: nontoxic, no distress, appears at stated age Derm: warm, dry, intact Head: atraumatic, normocephalic, symmetric Eyes: EOMI, anicteric sclera Mouth: no lip lesion, mucus membranes moist Cardiovascular: S1 S2 reg, no murmur, rubs, or gallops Lungs: CTA bilateral, no rales, no accessory muscle use Abdominal: soft, non-tender to palpataion, no appreciable organomegaly Extremities: no gross muscle atrophy, no edema, no contractures Back: 1st degree alonso located across whole back with some minor blistering and scratch echevarria Foot: Right foot bandaged, erythema noted up to the midshin with associated w armth and slight tenderness to palpation, erythema on the mid allen on the left leg with tenderness to palpation Neuro: Alert, Oriented, CNII-XII grossly intact, gait normal Psych: well appearing, appropriate affect Data Reviewed Today: Labs: Hemoglobin 11, normal WBC count and unremarkable BMP Microbiology: Wound culture shows Staph aureus and E. coli Blood culture shows no growth at 72 hours Imaging: No new imaging Assessment/Plan: 58-year-old man PMH of insulin-dependent diabetes mellitus, hypertension, GERD who is presenting to the emergency department due to chronic right foot infection in the presence of alonso on his back from a heating pad. He has been diagnosed with osteomyelitis of right foot and is currently on Cefepime and Flagyl and is being considered for surgical debridement possible TMA. Active: #. Osteomyelitis of right first metatarsal, and possibly second metatarsal #. Diabetic foot ulcer on the right #. History of osteomyelitis with MRSA and VRE positive #. Cellulitis of the right lower extremity WBC is not elevated patient denies any fever; dry, nonweightbearing wound at the base of the right big toe with associated erythema midway up the right foot Received 2 g Rocephin once in the ED, initiated on vancomycin CRP 5.9, ESR 67 Foot MRI shows previous 1st and 2nd toe amputation with a deep stump was extending to first metatarsal osteotomy region, underlying signal changes are compatible with extensive contiguous osteomyelitis of the first metatarsal sparing only the metatarsal base, additional findings suspicion for osteomyelitis also involving the distal aspect of the second metatarsal, diffuse soft tissue swelling and plantar muscle edema Wound culture shows MSSA and E. coli resistant to ceftriaxone Blood culture shows no growth at 72 hours Continue cefepime 2 g IV every 8 hours, Flagyl 500 mg IVPB every 8 hours Vancomycin and Rocephin discontinued Infectious disease is following Vascular surgery is following, recommend surgical debridement possible TMA on 08/09/24 Wound care is following, recommend apply absorptive silver dry,dry gauze, rolled gauze.Secure with paper tape.Change Thursday.Patient return to wound care center on August 12 at his regularly scheduled appointment time.Continue to offload. #. Insulin-dependent diabetes mellitus Hemoglobin A1c on 06/01/2024 was 14.8% Hold oral antihyperglycemic agents Continue Lantus 20 units BID Continue Insulin Sliding scale and ACHS blood glucose monitoring Monitor for hypoglycemia #. Diabetic gastroparesis #. Persistent dysphagia to solids and liquids Had previously been evaluated by speech-language pathology A1c 14.8% Was initiated on metoclopramide 10 mg ACHS during previous visit, which he states helped significantly Continue metoclopramide 10 mg ACHS GI follow up upon discharge #. 1st degree burn on back Bacitracin ointment and menthol-camphor lotion #. Severe pulmonary hypertension #. Diastolic HFpEF not in exacerbation #. history of syncopal episode #. History of PE on Eliquis Continue aspirin 81 mg daily, Eliquis 5 mg twice daily, metoprolol tartrate 25 mg twice daily, Imdur 30 mg daily Orthostatic vitals supine 102/66, sitting 104/64, standing 103/62 Echocardiogram shows EF 50%, low normal LV systolic function, moderate pulmonary hypertension, severe RV enlargement, moderate to severe tricuspid regurgitation, no pericardial effusion Hold lisinopril or Imdur Obtain 30-day event monitor prior to patient's discharge Patient to follow-up with pulmonary hypertension specialist Cardiology is following, recommending okay for the patient to have high blood pressure readings #. Mild hyponatremia, resolved Chronic: #. Hypertension #. Atrial fibrillation #. Hyperlipidemia #. History of CAD Continue Eliquis 5 mg p.o. twice daily, aspirin 81 mg p.o. daily, fenofibrate 54 mg p.o. at bedtime, metoprolol 25 mg p.o. twice daily F: 0.9 normal saline at 75 mL/h E: Replete as required N: Consistent carbohydrate diet, n.p.o. after midnight A: Ambulatory DVT prophylaxis: Eliquis 5 mg PO BID Code status: Full Code Anticipated discharge place: Pending clinical course Anticipated discharge time: Pending clinical course Dictation was produced using [employer] dictation software. please excuse any grammatical, word or spelling errors. Sylvester Weinberg MD PGY-1 IM Objective - Vital Signs Vital signs: Vital Signs Temp 98.0 F 08/08/24 07:16 Pulse 73 08/08/24 07:16 Resp 17 08/08/24 07:16 BP 144/72 08/08/24 07:16 Pulse Ox 96 08/08/24 07:16 FiO2 Intake & Output 08/07/24 08/08/24 08/08/24 18:59 06:59 18:59 Intake Total 240 Balance 240 Intake: Oral 240 Other: Voiding Method Urinal # Voids 3 3 - Labs CBC & Chem 7: 08/08/24 05:48 08/08/24 05:48 Labs: Abnormal Lab Results - Last 24 Hours (Table) 08/07/24 08/07/24 08/07/24 Range/Units 08:13 11:22 16:30 Hgb (13.0-17.0) g/dL Hct (39.6-50.0) % MCV (80.0-97.0) fL MCH (27.0-32.0) pg MCHC (32.0-37.0) g/dL RDW (11.5-14.5) % MPV (9.5-12.2) fL POC Glucose (mg/dL) 69 L 125 H 122 H (70-110) mg/dL 08/07/24 08/08/24 Range/Units 20:19 05:48 Hgb 11.0 L (13.0-17.0) g/dL Hct 35.7 L (39.6-50.0) % MCV 76.8 L (80.0-97.0) fL MCH 23.7 L (27.0-32.0) pg MCHC 30.8 L (32.0-37.0) g/dL RDW 15.6 H (11.5-14.5) % MPV 9.0 L (9.5-12.2) fL POC Glucose (mg/dL) 155 H (70-110) mg/dL Microbiology - Last 24 Hours (Table) 08/04/24 00:00 Gram Stain - Preliminary Foot - Right Wound Culture - Preliminary Escherichia coli Staphylococcus aureus 08/04/24 00:04 Blood Culture - Preliminary Blood
[2024-08-08 11:39] LABS: Glucose,Whole Blood 165 mg/dL (70-110)
[2024-08-08 14:35] VITALS: BMI 35.0
[2024-08-08 16:44] LABS: Glucose,Whole Blood 169 mg/dL (70-110)
[2024-08-08 19:56] LABS: Glucose,Whole Blood 197 mg/dL (70-110)
[2024-08-08] MEDS: SODIUM CHLORIDE 0.9% 1,000 ML IV SCH (23:24)
[2024-08-09 04:39] LABS: HCT 34.7 % (39.6-50.0); HGB 10.8 g/dL (13.0-17.0); MCH 23.4 pg (27.0-32.0); MCHC 31.1 g/dL (32.0-37.0); MCV 75.1 fL (80.0-97.0); Platelet Count 416 10*3/uL (140-440); RBC 4.62 10*6/uL (4.40-5.60); RDW 15.2 % (11.5-14.5); WBC 8.03 10*3/uL (4.50-10.00)
[2024-08-09 04:41] LABS: African American GFR (CKD) >90 (>60 ml/min/1.73 sqM); Anion Gap 6 mmol/L; Blood Urea Nitrogen 17 mg/dL (9-20); Calcium 9.4 mg/dL (8.4-10.2); Carbon Dioxide 26 mmol/L (22-30); Chloride 104 mmol/L (98-107); Glucose 165 mg/dL (74-99); Non-African American GFR(CKD) >90 (>60 ml/min/1.73 sqM); Potassium 4.5 mmol/L (3.5-5.1); Sodium 136 mmol/L (137-145)
[2024-08-09 06:03] LABS: Glucose,Whole Blood 160 mg/dL (70-110)
[2024-08-09] MEDS: IV FLUID CONTINUATION 1,000 ML IV ONE (11:24)
[2024-08-09 11:30] LABS: Glucose,Whole Blood 143 mg/dL (70-110)
[2024-08-09] MEDS: ONDANSETRON 4 MG/2 ML VIAL IVP STA (11:34)
[2024-08-09] MEDS ORDERED: LIDOCAINE 1% INJ 10MG/ML (20 ML MDV) ONE (12:02)
[2024-08-09] MEDS ORDERED: PHENYLEPHRINE-0.9% NACL SYG 1,000 MCG/10 ML SYRINGE ONE (12:02)
[2024-08-09] MEDS ORDERED: ROPIVACAINE 5 MG/ML 30 ML VIAL ONE (12:02)
[2024-08-09] MEDS ORDERED: PROPOFOL 10 MG/ML 20 ML VIAL IV ONE (12:02)
[2024-08-09] MEDS ORDERED: DEXAMETHASONE SOD PHOSPHATE 4 MG/ML 1 ML VIAL ONE (12:02)
[2024-08-09] MEDS ORDERED: MIDAZOLAM 2 MG/2 ML VIAL ONE (12:02)
[2024-08-09] MEDS: MIDAZOLAM 2 MG/2 ML VIAL IV ONE (12:35)
[2024-08-09] MEDS: SODIUM CHLORIDE 0.9% 50 ML with ceFAZolin 3,000 MG IV ONE (13:00)
--- NOTE | 2024-08-09 13:34 | P.ANPRN ---
Procedure Note - Anesthesia - Nerve Block Performed Right Adductor Canal Single Time Out Performed: Yes Date of Procedure: 08/09/24 Procedure Start Time: 12:35 Procedure Stop Time: 12:39 Location of Patient: PreOp Indication: Acute Post-Operative Pain, Requested by Surgeon Sedation Type: Sedate with meaningful contact maintained Preparation: Sterile Prep, Sterile Dressing Position: Supine Catheter: None Needle Types: Facet Needle Gauge: 20 Ultrasound used to visualize needle placement: Yes Ultrasound used to observe medication spread: Yes Injectate: 0.5% Ropivacaine (see comment for volume) (10 ml + decadron 1 mg) Blood Aspirated: No Pain Paresthesia on Injection Noted: No Resistance on Injection: Normal Image Stored and Saved: Yes Events: Uneventful and Well Tolerated Right Popliteal Single Time Out Performed: Yes Date of Procedure: 08/09/24 Procedure Start Time: 12:40 Procedure Stop Time: 12:45 Location of Patient: PreOp Indication: Acute Post-Operative Pain, Requested by Surgeon Sedation Type: Sedate with meaningful contact maintained Preparation: Sterile Prep, Sterile Dressing Position: Left Lateral Catheter: None Needle Types: Facet Needle Gauge: 20 Ultrasound used to visualize needle placement: Yes Ultrasound used to observe medication spread: Yes Injectate: 0.5% Ropivacaine (see comment for volume) (20 ml + decadron 3 mg) Blood Aspirated: No Pain Paresthesia on Injection Noted: No Resistance on Injection: Normal Image Stored and Saved: Yes Events: Uneventful and Well Tolerated
[2024-08-09] MEDS: LACTATED RINGERS 1,000 ML IV ONE (13:46)
[2024-08-09] MEDS: ceFAZolin 2 GM in SODIUM CHLORIDE 0.9% 500 ML 500 ML IRRIGATION ONE (14:05)
--- NOTE | 2024-08-09 14:41 | P.OP ---
Date of Procedure: 08/09/24 Description of Procedure: Preoperative diagnosis: Nonhealing right plantar great toe wound, diabetes, previous toe amputations Postoperative diagnosis: Same Procedure: Revision of right great toe amputation with excision of nonhealing wound. Application of wound VAC Surgeon: Sowmya San D.O. EBL: 10 cc IV fluids: See records Urine output: Not measured Drains: None Complications: None immediately apparent Condition: Stable to recovery Operative indication and findings: Patient is a 58-year-old male who previously had 1st and 2nd toe amputation that had been well-healed. He did develop a plantar wound on his great toe with continued nonhealing and due to this and continued infection the recommendation was for amputation. He seemed understands and is willing to proceed. Procedure in detail: Patient was taken the operative suite placed in supine position. Right lower extremity was prepped and draped in usual sterile fashion. A preprocedural timeout was performed, all parties were in agreement. Due to the location of the wound, and the potential need for TMA the incision was planned carefully. The incision was then made on the medial portion of the foot to excise the wound and then brought in a more cephalad direction. The first toe site was excised and carried down through the subcutaneous tissue to the level of the bone and tendon. The bone was transected with a oscillating saw at the first metatarsal midshaft. Any bleeding was cauterized. The area was then copiously irrigated. A rasp was used as well as a cleaning brush for the scaling skin. After appropriate appearance, the medial portion of the wound was reapproximated using interrupted sutures of 3-0 Vicryl and 3-0 nylon. The further distal portion of the wound was left open due to insufficient subcutaneous tissue for closure. A wound VAC was applied with adequate suction and no leak. The patient was transferred to PACU in stable condition having tolerated the procedure well.
--- NOTE | 2024-08-09 16:19 | P.PN ---
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 08/05/24: Patient seen and examined at bedside. He reports pain on right leg. 08/06/24: Patient evaluated at bedside. He reports pain on his right lower extremity. He also reports dizziness when he bends over. 08/07 Patient was seen and examined. Reports 08/16 pain in his right foot. Tentative plans for OR on Thursday. Maintained on Vancomycin dosed per pharmacy, Rocephin 2g IV QD and Flagyl 500 mg IV TID. WCx growing S. aureus and E. coli. CBC and BMP significant for Hg 10.5, Hct 34.1, MCV 76.8. POC glucose as low as 65 over the past 24H. 08/08/24: Patient seen and examined at bedside today. He still reports pain on the right foot. Along with that he also experiences nausea and one episode of vomi ting that he attributes to his diabetic gastroparesis. 08/09/24: Patient evaluated at bedside. He reports pain on the right foot. Denies any new complaints. Patient underwent revision of the right great toe amputation with excision of nonhealing wound and application of wound VAC today. Review of systems: Pertinent positives and negatives as discussed in HPI, a complete review of systems was performed and all other systems are negative. Vitals: Signs Reviewed and stable Physical examination: General: nontoxic, no distress, appears at stated age Derm: warm, dry, intact Head: atraumatic, normocephalic, symmetric Eyes: EOMI, anicteric sclera Mouth: no lip lesion, mucus membranes moist Cardiovascular: S1 S2 reg, no murmur, rubs, or gallops Lungs: CTA bilateral, no rales, no accessory muscle use Abdominal: soft, non-tender to palpataion, no appreciable organomegaly Extremities: no gross muscle atrophy, no edema, no contractures Back: 1st degree alonso located across whole back with some minor blistering and scratch echevarria Foot: Right foot bandaged, erythema noted up to the midshin with associated warmth and slight tenderness to palpation, erythema on the mid allen on the left leg with tenderness to palpation Neuro: Alert, Oriented, CNII-XII grossly intact, gait normal Psych: well appearing, appropriate affect Data Reviewed Today: Labs: Hemoglobin 10.8, MCV 75.1, sodium 136, glucose 143 Microbiology: Wound culture shows Staph aureus, E. coli and Alcaligen. faecalis Blood culture shows no growth at 72 hours Imaging: No new imaging Assessment/Plan: 58-year-old man PMH of insulin-dependent diabetes mellitus, hypertension, GERD who is presenting to the emergency department due to chronic right foot infection in the presence of alonso on his back from a heating pad. He has been diagnosed with osteomyelitis of right foot and is currently on Cefepime and Flagyl. Patient underwent revision of right great toe amputation with excision of nonhealing wound and application of wound VAC today. Active: #. Osteomyelitis of right first metatarsal, and possibly second metatarsal #. Diabetic foot ulcer on the right #. History of osteomyelitis with MRSA and VRE positive #. Cellulitis of the right lower extremity #. S/p revision of right great toe amputation with excision of nonhealing wound and application of wound VAC on 08/09/24 WBC is not elevated patient denies any fever; dry, nonweightbearing wound at the base of the right big toe with associated erythema midway up the right foot Received 2 g Rocephin once in the ED, initiated on vancomycin CRP 5.9, ESR 67 Foot MRI shows previous 1st and 2nd toe amputation with a deep stump was extending to first metatarsal osteotomy region, underlying signal changes are compatible with extensive contiguous osteomyelitis of the first metatarsal sparing only the metatarsal base, additional findings suspicion for osteomyelitis also involving the distal aspect of the second metatarsal, diffuse soft tissue swelling and plantar muscle edema Wound culture shows Staph aureus, Alcaligen. faecalis and E. coli resistant to ceftriaxone Blood culture shows no growth at 72 hours Continue cefepime 2 g IV every 8 hours, Flagyl 500 mg IVPB every 8 hours Vancomycin and Rocephin discontinued Evaluate possible need for PICC line for IV antibiotics Eliquis held for surgery Infectious disease is following Vascular surgery is following, recommend surgical debridement possible TMA on 08/09/24 Wound care is following, recommend apply absorptive silver dry,dry gauze, rolled gauze.Secure with paper tape.Change Thursday.Patient return to wound care center on August 12 at his regularly scheduled appointment time.Continue to offload. #. Insulin-dependent diabetes mellitus Hemoglobin A1c on 06/01/2024 was 14.8% Hold oral antihyperglycemic agents Continue Lantus 20 units BID Continue Insulin Sliding scale and ACHS blood glucose monitoring Monitor for hypoglycemia #. Diabetic gastroparesis #. Persistent dysphagia to solids and liquids Had previously been evaluated by speech-language pathology A1c 14.8% Was initiated on metoclopramide 10 mg ACHS during previous visit, which he states helped significantly Continue metoclopramide 10 mg ACHS GI follow up upon discharge #. 1st degree burn on back Bacitracin ointment and menthol-camphor lotion #. Severe pulmonary hypertension #. Diastolic HFpEF not in exacerbation #. history of syncopal episode #. History of PE on Eliquis Continue aspirin 81 mg daily, Eliquis 5 mg twice daily, metoprolol tartrate 25 mg twice daily, Imdur 30 mg daily Orthostatic vitals supine 102/66, sitting 104/64, standing 103/62 Echocardiogram shows EF 50%, low normal LV systolic function, moderate pulmonary hypertension, severe RV enlargement, moderate to severe tricuspid regurgitation, no pericardial effusion Hold lisinopril or Imdur Obtain 30-day event monitor prior to patient's discharge Patient to follow-up with pulmonary hypertension specialist Cardiology is following, recommending okay for the patient to have high blood pressure readings #. Mild hyponatremia, resolved Chronic: #. Hypertension #. Atrial fibrillation #. Hyperlipidemia #. History of CAD Continue aspirin 81 mg p.o. daily, fenofibrate 54 mg p.o. at bedtime, metoprolol 25 mg p.o. twice daily. Eliquis held for surgery F: 0.9 normal saline at 75 mL/h E: Replete as required N: Consistent carbohydrate diet A: Ambulatory DVT prophylaxis: Eliquis held Code status: Full Code Anticipated discharge place: Pending clinical course Anticipated discharge time: Pending clinical course Dictation was produced using [employer] dictation software. please excuse any grammatical, word or spelling errors. Sylvester Weinberg MD PGY-1 IM I saw and evaluated the patient during the alberto and critical portions of this encounter, and discussed the case in detail with the resident author of this note, I agree with the Assessment and Plan, and my changes, if any, are highlighted in blue. Objective - Vital Signs Vital signs: Vital Signs Temp 97.1 F L 08/09/24 14:12 Pulse 70 08/09/24 15:16 Resp 12 08/09/24 15:16 BP 166/81 08/09/24 15:16 Pulse Ox 100 08/09/24 15:16 FiO2 35 08/09/24 12:45 Intake & Output 08/08/24 08/09/24 08/09/24 18:59 06:59 18:59 Intake Total 1200 236 951 Output Total 20 Balance 1200 236 931 Weight 101.605 kg Intake: IV 951 Oral 1200 236 Output: Estimated Blood Loss 20 Other: Voiding Method Urinal # Voids 3 2 # Bowel Movements 1 - Labs CBC & Chem 7: 08/09/24 03:35 08/09/24 03:35 Labs: Abnormal Lab Results - Last 24 Hours (Table) 08/08/24 08/08/24 08/09/24 Range/Units 16:42 19:55 03:35 Hgb 10.8 L (13.0-17.0) g/dL Hct 34.7 L (39.6-50.0) % MCV 75.1 L (80.0-97.0) fL MCH 23.4 L (27.0-32.0) pg MCHC 31.1 L (32.0-37.0) g/dL RDW 15.2 H (11.5-14.5) % MPV 9.0 L (9.5-12.2) fL Sodium (137-145) mmol/L Glucose (74-99) mg/dL POC Glucose (mg/dL) 169 H 197 H (70-110) mg/dL 08/09/24 08/09/24 08/09/24 Range/Units 03:35 06:01 11:28 Hgb (13.0-17.0) g/dL Hct (39.6-50.0) % MCV (80.0-97.0) fL MCH (27.0-32.0) pg MCHC (32.0-37.0) g/dL RDW (11.5-14.5) % MPV (9.5-12.2) fL Sodium 136 L (137-145) mmol/L Glucose 165 H (74-99) mg/dL POC Glucose (mg/dL) 160 H 143 H (70-110) mg/dL Microbiology - Last 24 Hours (Table) 08/04/24 00:04 Blood Culture - Final Blood 08/04/24 00:00 Gram Stain - Final Foot - Right Wound Culture - Final Staphylococcus aureus Escherichia coli Alcaligen. faecalis
[2024-08-09 16:22] LABS: Glucose,Whole Blood 167 mg/dL (70-110)
--- NOTE | 2024-08-09 16:39 | P.PN ---
Subjective Progress Note Date: 08/08/24 Principal diagnosis: Reason for follow-up is right diabetic foot ulcer osteomyelitis Patient is a 58-year-old male with a past medical history significant for type 2 diabetes mellitus hypertension PE syncope reflux history of right diabetic foot infection/osteomyelitis and has been treated with multiple courses of antibiotic presented hospital worsening pain swelling redness of right foot concerning for diabetic foot infection with osteomyelitis. On today's evaluation that is 08/08/2024, patient has been afebrile, patient is breathing comfortably and is currently on room air, patient denies having any chest pain and cough, patient denies nausea vomiting or diarrhea and no abdominal pain, pain to the right foot is currently controlled. Patient did have a white count of 6.97, creatinine 0.83 Objective - Vital Signs Vital signs: Vital Signs Temp 98.0 F 08/08/24 07:16 Pulse 73 08/08/24 07:16 Resp 17 08/08/24 07:16 BP 144/72 08/08/24 07:16 Pulse Ox 96 08/08/24 07:16 FiO2 Intake & Output 08/07/24 08/08/24 08/08/24 18:59 06:59 18:59 Intake Total 600 Balance 600 Weight 101.605 kg Intake: Oral 600 Other: Voiding Method Urinal Urinal # Voids 3 3 - Exam GENERAL DESCRIPTION: Middle-age male lying in bed in no distress RESPIRATORY SYSTEM: Unlabored breathing , decreased breath sounds at bases HEART: S1 S2 regular rate and rhythm , ABDOMEN: Soft , no tenderness EXTREMITIES: Right foot is currently dressed - Labs CBC & Chem 7: 08/09/24 03:35 08/09/24 03:35 Labs: Abnormal Lab Results - Last 24 Hours (Table) 08/07/24 08/07/24 08/08/24 Range/Units 16:30 20:19 05:48 Hgb 11.0 L (13.0-17.0) g/dL Hct 35.7 L (39.6-50.0) % MCV 76.8 L (80.0-97.0) fL MCH 23.7 L (27.0-32.0) pg MCHC 30.8 L (32.0-37.0) g/dL RDW 15.6 H (11.5-14.5) % MPV 9.0 L (9.5-12.2) fL POC Glucose (mg/dL) 122 H 155 H (70-110) mg/dL 08/08/24 Range/Units 11:37 Hgb (13.0-17.0) g/dL Hct (39.6-50.0) % MCV (80.0-97.0) fL MCH (27.0-32.0) pg MCHC (32.0-37.0) g/dL RDW (11.5-14.5) % MPV (9.5-12.2) fL POC Glucose (mg/dL) 165 H (70-110) mg/dL Microbiology - Last 24 Hours (Table) 08/04/24 00:00 Gram Stain - Final Foot - Right Wound Culture - Final Staphylococcus aureus Escherichia coli Alcaligen. faecalis 08/04/24 00:04 Blood Culture - Preliminary Blood Assessment and Plan (1) Cellulitis of right lower limb Current Visit: Yes Status: Acute Code(s): L03.115 - CELLULITIS OF RIGHT LOWER LIMB SNOMED Code(s): 60793201665863153 (2) Diabetic foot infection Current Visit: Yes Status: Acute Code(s): E11.628 - TYPE 2 DIABETES MELLITUS WITH OTHER SKIN COMPLICATIONS; L08.9 - LOCAL INFECTION OF THE SKIN AND SUBCUTANEOUS TISSUE, UNSP SNOMED Code(s): 883862559 (3) Foot osteomyelitis, right Current Visit: No Status: Acute Code(s): M86.9 - OSTEOMYELITIS, UNSPECIFIED SNOMED Code(s): 8962697515764336 Plan: 1patient presented to hospital with increasing pain swelling redness to the right lower extremity in this patient who did have right diabetic foot ulcer on the plantar aspect now with evidence of secondary cellulitis involving the right foot and lower extremity will need to cover for the gram-positive as well as gram-negative pathogen as the patient has grown multiple pathogen from his wound in the past 2- MRI of the right foot has been suggestive of osteomyelitis involving the first and the second metatarsal did have elevated CRP and ESR 3-vascular surgery planning for surgical debridement versus transmetatarsal amputation scheduled for tomorrow 4-patient local culture growing E. coli which is resistant to ceftriaxone sensitive to cefepime and MSSA, 5patient is currently being treated cefepime 2 g every 8 hours along with the Flagyl and monitor clinical course closely Dictation was produced using [employer] dictation software. please excuse any grammatical, word or spelling errors. Time with Patient: Less than 30
--- NOTE | 2024-08-09 16:40 | P.PN ---
Subjective Progress Note Date: 08/09/24 Principal diagnosis: Reason for follow-up is right diabetic foot ulcer osteomyelitis Patient is a 58-year-old male with a past medical history significant for type 2 diabetes mellitus hypertension PE syncope reflux history of right diabetic foot infection/osteomyelitis and has been treated with multiple courses of antibiotic presented hospital worsening pain swelling redness of right foot concerning for diabetic foot infection with osteomyelitis.The patient is status post Revision of right great toe amputation with excision of nonhealing wound. Application of wound VAC completed on 08/09/2024 On today's evaluation that is 08/09/2024, Patient is afebrile this morning patient denies having any chest pain shortness of breath or cough, the patient is currently on room air, patient denies any abdominal pain no diarrhea no nausea no vomiting, pain to the right foot is currently controlled. Patient white count is 8.03, creatinine 0.87 Objective - Vital Signs Vital signs: Vital Signs Temp 97.1 F L 08/09/24 14:12 Pulse 70 08/09/24 15:16 Resp 12 08/09/24 15:16 BP 166/81 08/09/24 15:16 Pulse Ox 100 08/09/24 15:16 FiO2 35 08/09/24 12:45 Intake & Output 08/08/24 08/09/24 08/09/24 18:59 06:59 18:59 Intake Total 1200 236 951 Output Total 20 Balance 1200 236 931 Weight 101.605 kg Intake: IV 951 Oral 1200 236 Output: Estimated Blood Loss 20 Other: Voiding Method Urinal # Voids 3 2 # Bowel Movements 1 - Exam GENERAL DESCRIPTION: Middle-age male lying in bed in no distress RESPIRATORY SYSTEM: Unlabored breathing , decreased breath sounds at bases HEART: S1 S2 regular rate and rhythm , ABDOMEN: Soft , no tenderness EXTREMITIES: Right foot wound is covered with a wound VAC - Labs CBC & Chem 7: 08/09/24 03:35 08/09/24 03:35 Labs: Abnormal Lab Results - Last 24 Hours (Table) 08/08/24 08/08/24 08/09/24 Range/Units 16:42 19:55 03:35 Hgb 10.8 L (13.0-17.0) g/dL Hct 34.7 L (39.6-50.0) % MCV 75.1 L (80.0-97.0) fL MCH 23.4 L (27.0-32.0) pg MCHC 31.1 L (32.0-37.0) g/dL RDW 15.2 H (11.5-14.5) % MPV 9.0 L (9.5-12.2) fL Sodium (137-145) mmol/L Glucose (74-99) mg/dL POC Glucose (mg/dL) 169 H 197 H (70-110) mg/dL 08/09/24 08/09/24 08/09/24 Range/Units 03:35 06:01 11:28 Hgb (13.0-17.0) g/dL Hct (39.6-50.0) % MCV (80.0-97.0) fL MCH (27.0-32.0) pg MCHC (32.0-37.0) g/dL RDW (11.5-14.5) % MPV (9.5-12.2) fL Sodium 136 L (137-145) mmol/L Glucose 165 H (74-99) mg/dL POC Glucose (mg/dL) 160 H 143 H (70-110) mg/dL 08/09/24 Range/Units 16:19 Hgb (13.0-17.0) g/dL Hct (39.6-50.0) % MCV (80.0-97.0) fL MCH (27.0-32.0) pg MCHC (32.0-37.0) g/dL RDW (11.5-14.5) % MPV (9.5-12.2) fL Sodium (137-145) mmol/L Glucose (74-99) mg/dL POC Glucose (mg/dL) 167 H (70-110) mg/dL Microbiology - Last 24 Hours (Table) 08/04/24 00:04 Blood Culture - Final Blood 08/04/24 00:00 Gram Stain - Final Foot - Right Wound Culture - Final Staphylococcus aureus Escherichia coli Alcaligen. faecalis Assessment and Plan (1) Cellulitis of right lower limb Current Visit: Yes Status: Acute Code(s): L03.115 - CELLULITIS OF RIGHT LOWER LIMB SNOMED Code(s): 63562803174835038 (2) Diabetic foot infection Current Visit: Yes Status: Acute Code(s): E11.628 - TYPE 2 DIABETES MELLITUS WITH OTHER SKIN COMPLICATIONS; L08.9 - LOCAL INFECTION OF THE SKIN AND SUBCUTANEOUS TISSUE, UNSP SNOMED Code(s): 441825470 (3) Foot osteomyelitis, right Current Visit: No Status: Acute Code(s): M86.9 - OSTEOMYELITIS, UNSPECIFIED SNOMED Code(s): 3346885872819408 Plan: 1patient presented to hospital with increasing pain swelling redness to the right lower extremity in this patient who did have right diabetic foot ulcer on the plantar aspect now with evidence of secondary cellulitis involving the right foot and lower extremity will need to cover for the gram-positive as well as gram-negative pathogen as the patient has grown multiple pathogen from his wound in the past 2- MRI of the right foot has been suggestive of osteomyelitis involving the fir st and the second metatarsal did have elevated CRP and ESR 3-patient is status post Revision of right great toe amputation with excision of nonhealing wound. Application of wound VAC 4-patient local culture growing E. coli which is resistant to ceftriaxone sensitive to cefepime and MSSA, 5patient is currently being treated cefepime 2 g every 8 hours along with the Flagyl we will order PICC line for outpatient IV antibiotic therapy Dictation was produced using [employer] dictation software. please excuse any grammatical, word or spelling errors. Time with Patient: Less than 30
[2024-08-09 21:03] LABS: Glucose,Whole Blood 305 mg/dL (70-110)
[2024-08-10 04:01] LABS: HCT 37.8 % (39.6-50.0); MCH 23.5 pg (27.0-32.0); MCHC 31.7 g/dL (32.0-37.0); MCV 74.1 fL (80.0-97.0); Mean Platelet Volume 9.7 fL (9.5-12.2); Platelet Count 444 10*3/uL (140-440); WBC 9.15 10*3/uL (4.50-10.00)
[2024-08-10 04:48] LABS: African American GFR (CKD) >90 (>60 ml/min/1.73 sqM); Anion Gap 10 mmol/L; Blood Urea Nitrogen 14 mg/dL (9-20); Calcium 9.2 mg/dL (8.4-10.2); Carbon Dioxide 22 mmol/L (22-30); Chloride 102 mmol/L (98-107); Glucose 209 mg/dL (74-99); Non-African American GFR(CKD) >90 (>60 ml/min/1.73 sqM); Potassium 4.6 mmol/L (3.5-5.1); Sodium 134 mmol/L (137-145)
[2024-08-10 06:09] LABS: Glucose,Whole Blood 189 mg/dL (70-110)
[2024-08-10 11:18] LABS: Glucose,Whole Blood 246 mg/dL (70-110)
--- NOTE | 2024-08-10 11:21 | P.PN ---
Subjective Progress Note Date: 08/10/24 Principal diagnosis: Infected right foot wound, osteomyelitis Patient is status post revision of great toe amputation and plantar wound debridement measuring 6 x 4 x 1 cm into the subcutaneous tissue. Patient currently has wound VAC in place. Good suction. Pain is well-managed. Patient states that he is willing to go to subacute rehab. Patient has PICC line in place. Infectious diseases following managing antibiotics. He is afebrile. Wound culture growing Staphylococcus auris, E. coli and alcaligen faecalis Objective - Vital Signs Vital signs: Vital Signs Temp 97.3 F L 08/10/24 08:00 Pulse 77 08/10/24 08:00 Resp 16 08/10/24 08:00 BP 119/74 08/10/24 08:00 Pulse Ox 96 08/10/24 08:00 FiO2 35 08/09/24 12:45 Intake & Output 08/09/24 08/10/24 08/10/24 18:59 06:59 18:59 Intake Total 951 Output Total 670 650 Balance 281 -650 Intake: IV 951 Output: Urine 650 650 Estimated Blood Loss 20 Other: # Bowel Movements 1 - Exam General appearance: The patient is alert, oriented, appears in no acute distress. HET: Head is normocephalic and atraumatic. Neck: Supple. Abdomen: Soft, nondistended. Extremities: Right lower extremity warm to touch, good capillary refill. Right foot with wound VAC in place with good suction. Neurological: No focal deficits. Alert and oriented. - Labs CBC & Chem 7: 08/10/24 02:55 08/10/24 02:55 Labs: Abnormal Lab Results - Last 24 Hours (Table) 08/09/24 08/09/24 08/09/24 Range/Units 11:28 16:19 21:01 Hgb (13.0-17.0) g/dL Hct (39.6-50.0) % MCV (80.0-97.0) fL MCH (27.0-32.0) pg MCHC (32.0-37.0) g/dL RDW (11.5-14.5) % Plt Count (140-440) 10*3/uL Sodium (137-145) mmol/L Glucose (74-99) mg/dL POC Glucose (mg/dL) 143 H 167 H 305 H (70-110) mg/dL 08/10/24 08/10/24 08/10/24 Range/Units 02:55 02:55 06:08 Hgb 12.0 L (13.0-17.0) g/dL Hct 37.8 L (39.6-50.0) % MCV 74.1 L (80.0-97.0) fL MCH 23.5 L (27.0-32.0) pg MCHC 31.7 L (32.0-37.0) g/dL RDW 15.0 H (11.5-14.5) % Plt Count 444 H (140-440) 10*3/uL Sodium 134 L (137-145) mmol/L Glucose 209 H (74-99) mg/dL POC Glucose (mg/dL) 189 H (70-110) mg/dL Microbiology - Last 24 Hours (Table) 08/04/24 00:04 Blood Culture - Final Blood Assessment and Plan Assessment: 1. Right foot with infected diabetic ulcer status post revision of right great toe amputation and debridement plantar wound measuring 6 cm x 4 cm x 1 cm. 2. Osteomyelitis 3. Diabetes mellitus 4. History of pulmonary embolism on Eliquis 5. History of heart failure 6. Hypertension Plan: 1. Continue wound VAC as ordered. Change Thursday, then every Thursday 2. May resume Eliquis 3. Antibiotics per recommendations from infectious disease 4. Patient will need outpatient wound care, recommend following with [facility]. 5. Discussed importance with patient on the medical compliance, strict glycemic control. Would recommend subacute rehab at discharge for wound care and IV antibiotics. Patient is agreeable to that plan. Case management notified Thank you for this consultation, patient is cleared from vascular surgery for discharge. Follow-up in [address] San. The impression and plan of care has been dictated as directed. Dr. Mary Ortiz I performed a history and examination of this patient, discussed the same with the dictator. I agree with the dictator's note ,documented as a scribe. Any additional findings or plans will be noted.
--- NOTE | 2024-08-10 11:55 | P.PN ---
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 08/05/24: Patient seen and examined at bedside. He reports pain on right leg. 08/06/24: Patient evaluated at bedside. He reports pain on his right lower extremity. He also reports dizziness when he bends over. 08/07 Patient was seen and examined. Reports 08/16 pain in his right foot. Tentative plans for OR on Thursday. Maintained on Vancomycin dosed per pharmacy, Rocephin 2g IV QD and Flagyl 500 mg IV TID. WCx growing S. aureus and E. coli. CBC and BMP significant for Hg 10.5, Hct 34.1, MCV 76.8. POC glucose as low as 65 over the past 24H. 08/08/24: Patient seen and examined at bedside today. He still reports pain on the right foot. Along with that he also experiences nausea and one episode of vomi ting that he attributes to his diabetic gastroparesis. 08/09/24: Patient evaluated at bedside. He reports pain on the right foot. Denies any new complaints. Patient underwent revision of the right great toe amputation with excision of nonhealing wound and application of wound VAC today. 08/10/24: Patient seen and examined at bedside today. He reports pain on the right foot but mentions its better than before. Review of systems: Pertinent positives and negatives as discussed in HPI, a complete review of systems was performed and all other systems are negative. Vitals: Signs Reviewed and stable Physical examination: General: nontoxic, no distress, appears at stated age Derm: warm, dry, intact Head: atraumatic, normocephalic, symmetric Eyes: EOMI, anicteric sclera Mouth: no lip lesion, mucus membranes moist Cardiovascular: S1 S2 reg, no murmur, rubs, or gallops Lungs: CTA bilateral, no rales, no accessory muscle use Abdominal: soft, non-tender to palpataion, no appreciable organomegaly Extremities: no gross muscle atrophy, no edema, no contractures Back: 1st degree alonso located across whole back with some minor blistering and scratch echevarria Foot: Right foot bandaged, erythema noted up to the midshin with associated warmth and slight tenderness to palpation, erythema on the mid allen on the left leg with tenderness to palpation Neuro: Alert, Oriented, CNII-XII grossly intact, gait normal Psych: well appearing, appropriate affect Data Reviewed Today: Labs: Hemoglobin 12, MCV 74.1, platelet count 444, sodium 134, glucose 189 Imaging: No new imaging Assessment/Plan: 58-year-old man PMH of insulin-dependent diabetes mellitus, hypertension, GERD who is presenting to the emergency department due to chronic right foot infection in the presence of alonso on his back from a heating pad. He has been diagnosed with osteomyelitis of right foot and is currently on Cefepime and Flagyl. Patient underwent revision of right great toe amputation with excision of nonhealing wound and application of wound VAC today. Active: #. Osteomyelitis of right first metatarsal, and possibly second metatarsal #. Diabetic foot ulcer on the right #. History of osteomyelitis with MRSA and VRE positive #. Cellulitis of the right lower extremity #. S/p revision of right great toe amputation with excision of nonhealing wound and application of wound VAC on 08/09/24 WBC is not elevated patient denies any fever; dry, nonweightbearing wound at the base of the right big toe with associated erythema midway up the right foot Received 2 g Rocephin once in the ED, initiated on vancomycin CRP 5.9, ESR 67 Foot MRI shows previous 1st and 2nd toe amputation with a deep stump was extending to first metatarsal osteotomy region, underlying signal changes are compatible with extensive contiguous osteomyelitis of the first metatarsal sparing only the metatarsal base, additional findings suspicion for osteomyelitis also involving the distal aspect of the second metatarsal, diffuse soft tissue swelling and plantar muscle edema Wound culture shows Staph aureus, Alcaligen. faecalis and E. coli resistant to ceftriaxone Blood culture shows no growth at 72 hours Continue cefepime 2 g IV every 8 hours, Flagyl 500 mg IVPB every 8 hours Vancomycin and Rocephin discontinued Dilaudid for pain management Infectious disease is following, recommend PICC line for outpatient IV antibiotic therapy Discussed with vascular surgery, recommending subacute rehab Wound care is following, recommend apply absorptive silver dry,dry gauze, rolled gauze.Secure with paper tape.Change Thursday.Patient return to wound care center on August 12 at his regularly scheduled appointment time.Continue to offload. #. Insulin-dependent diabetes mellitus Hemoglobin A1c on 06/01/2024 was 14.8% Hold oral antihyperglycemic agents Continue Lantus 20 units BID Continue Insulin Sliding scale and ACHS blood glucose monitoring Monitor for hypoglycemia #. Diabetic gastroparesis #. Persistent dysphagia to solids and liquids Had previously been evaluated by speech-language pathology A1c 14.8% Was initiated on metoclopramide 10 mg ACHS during previous visit, which he s tates helped significantly Continue metoclopramide 10 mg ACHS GI follow up upon discharge #. 1st degree burn on back Bacitracin ointment and menthol-camphor lotion #. Severe pulmonary hypertension #. Diastolic HFpEF not in exacerbation #. history of syncopal episode #. History of PE on Eliquis Continue aspirin 81 mg daily, Eliquis 5 mg twice daily, metoprolol tartrate 25 mg twice daily, Imdur 30 mg daily Orthostatic vitals supine 102/66, sitting 104/64, standing 103/62 Echocardiogram shows EF 50%, low normal LV systolic function, moderate pulmonary hypertension, severe RV enlargement, moderate to severe tricuspid regurgitation, no pericardial effusion Hold lisinopril or Imdur Continue Eliquis 5 mg PO BID Obtain 30-day event monitor prior to patient's discharge Patient to follow-up with pulmonary hypertension specialist Cardiology is following, recommending okay for the patient to have high blood pressure readings #. Mild hyponatremia, resolved Chronic: #. Hypertension #. Atrial fibrillation #. Hyperlipidemia #. History of CAD Continue aspirin 81 mg p.o. daily, fenofibrate 54 mg p.o. at bedtime, metoprolol 25 mg p.o. twice daily. Eliquis held for surgery F: 0.9 normal saline at 75 mL/h E: Replete as required N: Consistent carbohydrate diet A: Ambulatory DVT prophylaxis: Eliquis 5 mg PO BID Code status: Full Code Anticipated discharge place: Pending clinical course Anticipated discharge time: likely tomorrow Dictation was produced using Sw[employer] software. please excuse any grammatical, word or spelling errors. Sylvester Weinberg MD PGY-1 IM I have seen and evaluated the patient today. Discussed with the resident and agree with the residents finding and plan as documented in the resident's note. Changes highlighted in blue font. Objective - Vital Signs Vital signs: Vital Signs Temp 98.0 F 08/10/24 01:38 Pulse 74 08/10/24 06:00 Resp 18 08/10/24 06:00 BP 126/72 08/10/24 06:00 Pulse Ox 97 08/10/24 06:00 FiO2 35 08/09/24 12:45 Intake & Output 08/09/24 08/10/24 08/10/24 18:59 06:59 18:59 Intake Total 951 Output Total 670 650 Balance 281 -650 Intake: IV 951 Output: Urine 650 650 Estimated Blood Loss 20 Other: # Bowel Movements 1 - Labs CBC & Chem 7: 08/10/24 02:55 08/10/24 02:55 Labs: Abnormal Lab Results - Last 24 Hours (Table) 08/09/24 08/09/24 08/09/24 Range/Units 11:28 16:19 21:01 Hgb (13.0-17.0) g/dL Hct (39.6-50.0) % MCV (80.0-97.0) fL MCH (27.0-32.0) pg MCHC (32.0-37.0) g/dL RDW (11.5-14.5) % Plt Count (140-440) 10*3/uL Sodium (137-145) mmol/L Glucose (74-99) mg/dL POC Glucose (mg/dL) 143 H 167 H 305 H (70-110) mg/dL 08/10/24 08/10/24 08/10/24 Range/Units 02:55 02:55 06:08 Hgb 12.0 L (13.0-17.0) g/dL Hct 37.8 L (39.6-50.0) % MCV 74.1 L (80.0-97.0) fL MCH 23.5 L (27.0-32.0) pg MCHC 31.7 L (32.0-37.0) g/dL RDW 15.0 H (11.5-14.5) % Plt Count 444 H (140-440) 10*3/uL Sodium 134 L (137-145) mmol/L Glucose 209 H (74-99) mg/dL POC Glucose (mg/dL) 189 H (70-110) mg/dL Microbiology - Last 24 Hours (Table) 08/04/24 00:04 Blood Culture - Final Blood
[2024-08-10 16:14] LABS: Glucose,Whole Blood 318 mg/dL (70-110)
[2024-08-10 21:09] LABS: Glucose,Whole Blood 321 mg/dL (70-110)
[2024-08-11 03:25] LABS: HCT 35.1 % (39.6-50.0); HGB 11.2 g/dL (13.0-17.0); MCH 23.8 pg (27.0-32.0); MCHC 31.9 g/dL (32.0-37.0); MCV 74.5 fL (80.0-97.0); Mean Platelet Volume 8.7 fL (9.5-12.2); Platelet Count 445 10*3/uL (140-440); RBC 4.71 10*6/uL (4.40-5.60); RDW 15.4 % (11.5-14.5); WBC 9.38 10*3/uL (4.50-10.00)
[2024-08-11 03:35] LABS: African American GFR (CKD) >90 (>60 ml/min/1.73 sqM); Anion Gap 8 mmol/L; Blood Urea Nitrogen 20 mg/dL (9-20); Calcium 9.1 mg/dL (8.4-10.2); Carbon Dioxide 26 mmol/L (22-30); Chloride 101 mmol/L (98-107); Glucose 177 mg/dL (74-99); Non-African American GFR(CKD) 90 (>60 ml/min/1.73 sqM); Potassium 4.3 mmol/L (3.5-5.1); Sodium 135 mmol/L (137-145)
[2024-08-11 06:08] LABS: Glucose,Whole Blood 199 mg/dL (70-110)
[2024-08-11 11:12] LABS: Glucose,Whole Blood 301 mg/dL (70-110)
--- NOTE | 2024-08-11 11:55 | P.PN ---
Subjective Progress Note Date: 08/11/24 Principal diagnosis: Infected right foot wound, osteomyelitis Patient is seen and examined as a follow-up. He is status post debridement with wound VAC application. He is awaiting placement for subacute rehab. No new complaints. He has been afebrile. Wound VAC is intact with good suction. Objective - Vital Signs Vital signs: Vital Signs Temp 98.6 F 08/11/24 07:26 Pulse 71 08/11/24 07:26 Resp 16 08/11/24 07:26 BP 179/72 08/11/24 07:26 Pulse Ox 100 08/11/24 07:26 FiO2 35 08/09/24 12:45 Intake & Output 08/10/24 08/11/24 08/11/24 18:59 06:59 18:59 Output Total 50 Balance -50 Output: Drainage 50 Right Foot 50 Other: # Voids 2 - Exam General appearance: The patient is alert, oriented, appears in no acute distress. HET: Head is normocephalic and atraumatic. Neck: Supple. Abdomen: Soft, nondistended. Extremities: Right lower extremity warm to touch, good capillary refill. Right foot with wound VAC in place with good suction. Neurological: No focal deficits. Alert and oriented. - Labs CBC & Chem 7: 08/11/24 02:56 08/11/24 02:56 Labs: Abnormal Lab Results - Last 24 Hours (Table) 08/10/24 08/10/24 08/10/24 Range/Units 11:17 16:13 21:08 Hgb (13.0-17.0) g/dL Hct (39.6-50.0) % MCV (80.0-97.0) fL MCH (27.0-32.0) pg MCHC (32.0-37.0) g/dL RDW (11.5-14.5) % Plt Count (140-440) 10*3/uL MPV (9.5-12.2) fL Sodium (137-145) mmol/L Glucose (74-99) mg/dL POC Glucose (mg/dL) 246 H 318 H 321 H (70-110) mg/dL 08/11/24 08/11/24 08/11/24 Range/Units 02:56 02:56 06:07 Hgb 11.2 L (13.0-17.0) g/dL Hct 35.1 L (39.6-50.0) % MCV 74.5 L (80.0-97.0) fL MCH 23.8 L (27.0-32.0) pg MCHC 31.9 L (32.0-37.0) g/dL RDW 15.4 H (11.5-14.5) % Plt Count 445 H (140-440) 10*3/uL MPV 8.7 L (9.5-12.2) fL Sodium 135 L (137-145) mmol/L Glucose 177 H (74-99) mg/dL POC Glucose (mg/dL) 199 H (70-110) mg/dL Assessment and Plan Assessment: 1. Right foot with infected diabetic ulcer status post revision of right great toe amputation and debridement plantar wound measuring 6 cm x 4 cm x 1 cm. 2. Osteomyelitis 3. Diabetes mellitus 4. History of pulmonary embolism on Eliquis 5. History of heart failure 6. Hypertension Plan: 1. Continue wound VAC as ordered. Change Thursday, then every Thursday 2. May resume Eliquis 3. Antibiotics per recommendations from infectious disease 4. Patient will need outpatient wound care, recommend following with [facility]. 5. Discussed importance with patient on the medical compliance, strict glycemic control. Would recommend subacute rehab at discharge for wound care and IV antibiotics. Patient is agreeable to that plan. Case management notified Thank you for this consultation, patient is cleared from vascular surgery for discharge. Follow-up in [address] San. We will sign off at this time. The impression and plan of care has been dictated as directed. Dr. Real I performed a history and examination of this patient, discussed the same with the dictator. I agree with the dictator's note ,documented as a scribe. Any additional findings or plans will be noted.
--- NOTE | 2024-08-11 13:23 | P.PN ---
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 08/05/24: Patient seen and examined at bedside. He reports pain on right leg. 08/06/24: Patient evaluated at bedside. He reports pain on his right lower extremity. He also reports dizziness when he bends over. 08/07 Patient was seen and examined. Reports 08/16 pain in his right foot. Tentative plans for OR on Thursday. Maintained on Vancomycin dosed per pharmacy, Rocephin 2g IV QD and Flagyl 500 mg IV TID. WCx growing S. aureus and E. coli. CBC and BMP significant for Hg 10.5, Hct 34.1, MCV 76.8. POC glucose as low as 65 over the past 24H. 08/08/24: Patient seen and examined at bedside today. He still reports pain on the right foot. Along with that he also experiences nausea and one episode of vomi ting that he attributes to his diabetic gastroparesis. 08/09/24: Patient evaluated at bedside. He reports pain on the right foot. Denies any new complaints. Patient underwent revision of the right great toe amputation with excision of nonhealing wound and application of wound VAC today. 08/10/24: Patient seen and examined at bedside today. He reports pain on the right foot but mentions its better than before. 08/11/24: Patient evaluated at bedside. He denies any acute complaints. He had PICC line placed. Review of systems: Pertinent positives and negatives as discussed in HPI, a complete review of systems was performed and all other systems are negative. Vitals: Signs Reviewed, BP 179/72 Physical examination: General: nontoxic, no distress, appears at stated age Derm: warm, dry, intact Head: atraumatic, normocephalic, symmetric Eyes: EOMI, anicteric sclera Mouth: no lip lesion, mucus membranes moist Cardiovascular: S1 S2 reg, no murmur, rubs, or gallops Lungs: CTA bilateral, no rales, no accessory muscle use Abdominal: soft, non-tender to palpataion, no appreciable organomegaly Extremities: no gross muscle atrophy, no edema, no contractures Back: 1st degree alonso located across whole back with some minor blistering and scratch echevarria Foot: Right foot bandaged and wound VAC in place, erythema noted up to the midshin with associated warmth and slight tenderness to palpation, erythema on the mid allen on the left leg with tenderness to palpation Neuro: Alert, Oriented, CNII-XII grossly intact, gait normal Psych: well appearing, appropriate affect Data Reviewed Today: Labs: Hemoglobin 11.2, MCV 74.5, platelet count 445, sodium 135, glucose 199 Imaging: No new imaging Assessment/Plan: 58-year-old man PMH of insulin-dependent diabetes mellitus, hypertension, GERD who is presenting to the emergency department due to chronic right foot infection in the presence of alonso on his back from a heating pad. He has been diagnosed with osteomyelitis of right foot and is currently on Cefepime and Flagyl. Patient underwent revision of right great toe amputation with excision of nonhealing wound and application of wound VAC today. Patient awaiting placement. Active: #. Osteomyelitis of right first metatarsal, and possibly second metatarsal #. Diabetic foot ulcer on the right #. History of osteomyelitis with MRSA and VRE positive #. Cellulitis of the right lower extremity #. S/p revision of right great toe amputation with excision of nonhealing wound and application of wound VAC on 08/09/24 WBC is not elevated patient denies any fever; dry, nonweightbearing wound at the base of the right big toe with associated erythema midway up the right foot Received 2 g Rocephin once in the ED, initiated on vancomycin CRP 5.9, ESR 67 Foot MRI shows previous 1st and 2nd toe amputation with a deep stump was extending to first metatarsal osteotomy region, underlying signal changes are compatible with extensive contiguous osteomyelitis of the first metatarsal sparing only the metatarsal base, additional findings suspicion for osteomyelitis also involving the distal aspect of the second metatarsal, diffuse soft tissue swelling and plantar muscle edema Wound culture shows Staph aureus, Alcaligen. faecalis and E. coli resistant to ceftriaxone Blood culture shows no growth at 72 hours Continue cefepime 2 g IV every 8 hours, Flagyl 500 mg IVPB every 8 hours for 6 weeks upon discharge, PICC line placed Vancomycin and Rocephin discontinued Dilaudid for pain management Infectious disease is following Vascular surgery is following, recommend Continue wound VAC as ordered. Change Thursday, then every Thursday. Patient will need outpatient wound care, recommend following with [facility] Wound care is following, recommend apply absorptive silver dry,dry gauze, rolled gauze.Secure with paper tape.Change Thursday.Patient return to wound care center on August 12 at his regularly scheduled appointment time.Continue to offload Patient awaiting placement #. Insulin-dependent diabetes mellitus Hemoglobin A1c on 06/01/2024 was 14.8% Hold oral antihyperglycemic agents Continue Lantus 20 units BID Continue Insulin Sliding scale and ACHS blood glucose monitoring Monitor for hypoglycemia #. Diabetic gastroparesis #. Persistent dysphagia to solids and liquids Had previously been evaluated by speech-language pathology A1c 14.8% Was initiated on metoclopramide 10 mg ACHS during previous visit, which he states helped significantly Continue metoclopramide 10 mg ACHS GI follow up upon discharge #. 1st degree burn on back Bacitracin ointment and menthol-camphor lotion #. Severe pulmonary hypertension #. Diastolic HFpEF not in exacerbation #. history of syncopal episode #. History of PE on Eliquis Continue aspirin 81 mg daily, Eliquis 5 mg twice daily, metoprolol tartrate 25 mg twice daily, Imdur 30 mg daily Orthostatic vitals supine 102/66, sitting 104/64, standing 103/62 Echocardiogram shows EF 50%, low normal LV systolic function, moderate pulmonary hypertension, severe RV enlargement, moderate to severe tricuspid regurgitation, no pericardial effusion Hold lisinopril or Imdur Continue Eliquis 5 mg PO BID Obtain 30-day event monitor prior to patient's discharge Patient to follow-up with pulmonary hypertension specialist Cardiology is following, recommending okay for the patient to have high blood pressure readings #. Mild hyponatremia, resolved Chronic: #. Hypertension #. Atrial fibrillation #. Hyperlipidemia #. History of CAD Continue aspirin 81 mg p.o. daily, fenofibrate 54 mg p.o. at bedtime, metoprolol 25 mg p.o. twice daily. Eliquis resumed F: 0.9 normal saline at 75 mL/h E: Replete as required N: Consistent carbohydrate diet A: Ambulatory DVT prophylaxis: Eliquis 5 mg PO BID Code status: Full Code Anticipated discharge place: Pending clinical course Anticipated discharge time: likely tomorrow Dictation was produced using [employer] dictation software. please excuse any grammatical, word or spelling errors. Sylvester Weinberg MD PGY-1 IM I have seen and evaluated the patient today. Discussed with the resident and agree with the residents finding and plan as documented in the resident's note. Changes highlighted in blue font. Objective - Vital Signs Vital signs: Vital Signs Temp 98.6 F 08/11/24 07:26 Pulse 71 08/11/24 07:26 Resp 16 08/11/24 07:26 BP 179/72 08/11/24 07:26 Pulse Ox 100 08/11/24 07:26 FiO2 35 08/09/24 12:45 Intake & Output 08/10/24 08/11/24 08/11/24 18:59 06:59 18:59 Output Total 50 Balance -50 Output: Drainage 50 Right Foot 50 Other: # Voids 2 - Labs CBC & Chem 7: 08/11/24 02:56 08/11/24 02:56 Labs: Abnormal Lab Results - Last 24 Hours (Table) 08/10/24 08/10/24 08/10/24 Range/Units 11:17 16:13 21:08 Hgb (13.0-17.0) g/dL Hct (39.6-50.0) % MCV (80.0-97.0) fL MCH (27.0-32.0) pg MCHC (32.0-37.0) g/dL RDW (11.5-14.5) % Plt Count (140-440) 10*3/uL MPV (9.5-12.2) fL Sodium (137-145) mmol/L Glucose (74-99) mg/dL POC Glucose (mg/dL) 246 H 318 H 321 H (70-110) mg/dL 08/11/24 08/11/24 08/11/24 Range/Units 02:56 02:56 06:07 Hgb 11.2 L (13.0-17.0) g/dL Hct 35.1 L (39.6-50.0) % MCV 74.5 L (80.0-97.0) fL MCH 23.8 L (27.0-32.0) pg MCHC 31.9 L (32.0-37.0) g/dL RDW 15.4 H (11.5-14.5) % Plt Count 445 H (140-440) 10*3/uL MPV 8.7 L (9.5-12.2) fL Sodium 135 L (137-145) mmol/L Glucose 177 H (74-99) mg/dL POC Glucose (mg/dL) 199 H (70-110) mg/dL
--- NOTE | 2024-08-11 15:43 | P.PN ---
Subjective Progress Note Date: 08/10/24 Principal diagnosis: Reason for follow-up is right diabetic foot ulcer osteomyelitis Patient is a 58-year-old male with a past medical history significant for type 2 diabetes mellitus hypertension PE syncope reflux history of right diabetic foot infection/osteomyelitis and has been treated with multiple courses of antibiotic presented hospital worsening pain swelling redness of right foot concerning for diabetic foot infection with osteomyelitis.The patient is status post Revision of right great toe amputation with excision of nonhealing wound. Application of wound VAC completed on 08/09/2024 On today's evaluation that is 08/10/2024,the patient denies any fever or any chills, patient is breathing comfortably on room air, the patient denies chest pain shortness of breath and no significant cough, patient denies abdominal pain, no nausea vomiting or diarrhea. Pain to the right foot is currently controlled Patient did have a white count of 9.15, creatinine 0.77 Objective - Vital Signs Vital signs: Vital Signs Temp 97.9 F 08/10/24 19:26 Pulse 77 08/10/24 19:26 Resp 17 08/10/24 19:26 BP 112/68 08/10/24 19:26 Pulse Ox 95 08/10/24 19:26 FiO2 35 08/09/24 12:45 Intake & Output 08/10/24 08/10/24 08/11/24 06:59 18:59 06:59 Output Total 650 50 Balance -650 -50 Output: Drainage 50 Right Foot 50 Urine 650 Other: # Bowel Movements 1 - Exam GENERAL DESCRIPTION: Middle-age male lying in bed in no distress RESPIRATORY SYSTEM: Unlabored breathing , decreased breath sounds at bases HEART: S1 S2 regular rate and rhythm , ABDOMEN: Soft , no tenderness EXTREMITIES: Right foot wound is covered with a wound VAC - Labs CBC & Chem 7: 08/11/24 02:56 08/11/24 02:56 Labs: Abnormal Lab Results - Last 24 Hours (Table) 08/09/24 08/10/24 08/10/24 Range/Units 21:01 02:55 02:55 Hgb 12.0 L (13.0-17.0) g/dL Hct 37.8 L (39.6-50.0) % MCV 74.1 L (80.0-97.0) fL MCH 23.5 L (27.0-32.0) pg MCHC 31.7 L (32.0-37.0) g/dL RDW 15.0 H (11.5-14.5) % Plt Count 444 H (140-440) 10*3/uL Sodium 134 L (137-145) mmol/L Glucose 209 H (74-99) mg/dL POC Glucose (mg/dL) 305 H (70-110) mg/dL 08/10/24 08/10/24 08/10/24 Range/Units 06:08 11:17 16:13 Hgb (13.0-17.0) g/dL Hct (39.6-50.0) % MCV (80.0-97.0) fL MCH (27.0-32.0) pg MCHC (32.0-37.0) g/dL RDW (11.5-14.5) % Plt Count (140-440) 10*3/uL Sodium (137-145) mmol/L Glucose (74-99) mg/dL POC Glucose (mg/dL) 189 H 246 H 318 H (70-110) mg/dL Assessment and Plan (1) Cellulitis of right lower limb Current Visit: Yes Status: Acute Code(s): L03.115 - CELLULITIS OF RIGHT LOWER LIMB SNOMED Code(s): 01048117804688955 (2) Diabetic foot infection Current Visit: Yes Status: Acute Code(s): E11.628 - TYPE 2 DIABETES MELLITUS WITH OTHER SKIN COMPLICATIONS; L08.9 - LOCAL INFECTION OF THE SKIN AND SUB CUTANEOUS TISSUE, UNSP SNOMED Code(s): 279713213 (3) Foot osteomyelitis, right Current Visit: No Status: Acute Code(s): M86.9 - OSTEOMYELITIS, UNSPECIFIED SNOMED Code(s): 4045744937705163 Plan: 1patient presented to hospital with increasing pain swelling redness to the right lower extremity in this patient who did have right diabetic foot ulcer on the plantar aspect now with evidence of secondary cellulitis involving the right foot and lower extremity will need to cover for the gram-positive as well as gram-negative pathogen as the patient has grown multiple pathogen from his wound in the past 2- MRI of the right foot has been suggestive of osteomyelitis involving the first and the second metatarsal did have elevated CRP and ESR 3-patient is status post Revision of right great toe amputation with excision of nonhealing wound. Application of wound VAC 4-patient local culture growing E. coli which is resistant to ceftriaxone sensitive to cefepime and MSSA, 5patient did have a PICC line placement to continue cefepime 2 g every 8 hours along with the Flagyl, currently waiting for outpatient IV antibiotic arrangement Dictation was produced using [employer] dictation software. please excuse any grammatical, word or spelling errors. Time with Patient: Less than 30
--- NOTE | 2024-08-11 15:44 | P.PN ---
Subjective Progress Note Date: 08/11/24 Principal diagnosis: Reason for follow-up is right diabetic foot ulcer osteomyelitis Patient is a 58-year-old male with a past medical history significant for type 2 diabetes mellitus hypertension PE syncope reflux history of right diabetic foot infection/osteomyelitis and has been treated with multiple courses of antibiotic presented hospital worsening pain swelling redness of right foot concerning for diabetic foot infection with osteomyelitis.The patient is status post Revision of right great toe amputation with excision of nonhealing wound. Application of wound VAC completed on 08/09/2024 On today's evaluation that is 08/11/2024,the patient remains to be afebrile, patient is on room air not requiring supplemental oxygen and denies any shortness of breath no chest pain or cough.Patient denies having any nausea or vomiting, no abdominal pain and no diarrhea has been reported Patient white count is 9.38, creatinine 0.95 local culture with MSSA Alcaligenes faecalis and E. coli that was resistant to cefazolin but sensitive to cefepime Objective - Vital Signs Vital signs: Vital Signs Temp 98.6 F 08/11/24 07:26 Pulse 71 08/11/24 07:26 Resp 16 08/11/24 07:26 BP 179/72 08/11/24 07:26 Pulse Ox 100 08/11/24 07:26 FiO2 35 08/09/24 12:45 Intake & Output 08/10/24 08/11/24 08/11/24 18:59 06:59 18:59 Output Total 50 Balance -50 Output: Drainage 50 Right Foot 50 Other: Voiding Method Urinal # Voids 2 - Exam GENERAL DESCRIPTION: Middle-age male lying in bed in no distress RESPIRATORY SYSTEM: Unlabored breathing , decreased breath sounds at bases HEART: S1 S2 regular rate and rhythm , ABDOMEN: Soft , no tenderness EXTREMITIES: Right foot wound is covered with a wound VAC - Labs CBC & Chem 7: 08/11/24 02:56 08/11/24 02:56 Labs: Abnormal Lab Results - Last 24 Hours (Table) 08/10/24 08/10/24 08/11/24 Range/Units 16:13 21:08 02:56 Hgb 11.2 L (13.0-17.0) g/dL Hct 35.1 L (39.6-50.0) % MCV 74.5 L (80.0-97.0) fL MCH 23.8 L (27.0-32.0) pg MCHC 31.9 L (32.0-37.0) g/dL RDW 15.4 H (11.5-14.5) % Plt Count 445 H (140-440) 10*3/uL MPV 8.7 L (9.5-12.2) fL Sodium (137-145) mmol/L Glucose (74-99) mg/dL POC Glucose (mg/dL) 318 H 321 H (70-110) mg/dL 08/11/24 08/11/24 08/11/24 Range/Units 02:56 06:07 11:12 Hgb (13.0-17.0) g/dL Hct (39.6-50.0) % MCV (80.0-97.0) fL MCH (27.0-32.0) pg MCHC (32.0-37.0) g/dL RDW (11.5-14.5) % Plt Count (140-440) 10*3/uL MPV (9.5-12.2) fL Sodium 135 L (137-145) mmol/L Glucose 177 H (74-99) mg/dL POC Glucose (mg/dL) 199 H 301 H (70-110) mg/dL Assessment and Plan (1) Cellulitis of right lower limb Current Visit: Yes Status: Acute Code(s): L03.115 - CELLULITIS OF RIGHT LOWER LIMB SNOMED Code(s): 22801027427424049 (2) Diabetic foot infection Current Visit: Yes Status: Acute Code(s): E11.628 - TYPE 2 DIABETES MELLITUS WITH OTHER SKIN COMPLICATIONS; L08.9 - LOCAL INFECTION OF THE SKIN AND SUBCUTANEOUS TISSUE, UNSP SNOMED Code(s): 747614769 (3) Foot osteomyelitis, right Current Visit: No Status: Acute Code(s): M86.9 - OSTEOMYELITIS, UNSPECIFIED SNOMED Code(s): 3300288964780861 Plan: 1patient presented to hospital with increasing pain swelling redness to the right lower extremity in this patient who did have right diabetic foot ulcer on the plantar aspect now with evidence of secondary cellulitis involving the right foot and lower extremity will need to cover for the gram-positive as well as gram-negative pathogen as the patient has grown multiple pathogen from his wound in the past 2- MRI of the right foot has been suggestive of osteomyelitis involving the first and the second metatarsal did have elevated CRP and ESR 3-patient is status post Revision of right great toe amputation with excision of nonhealing wound. Application of wound VAC 4-patient local culture growing E. coli which is resistant to ceftriaxone sensitive to cefepime and MSSA, 5patient did have a PICC line placement prescription for outpatient IV cefepime given to the case filler he will need Flagyl as well and close outpatient follow-up Dictation was produced using [employer] dictation software. please excuse any grammatical, word or spelling errors. Time with Patient: Less than 30
[2024-08-11 16:51] LABS: Glucose,Whole Blood 194 mg/dL (70-110)
[2024-08-11 20:45] LABS: Glucose,Whole Blood 218 mg/dL (70-110)
[2024-08-12 05:33] LABS: HCT 39.2 % (39.6-50.0); HGB 12.3 g/dL (13.0-17.0); MCH 23.6 pg (27.0-32.0); MCHC 31.4 g/dL (32.0-37.0); MCV 75.2 fL (80.0-97.0); Mean Platelet Volume 9.2 fL (9.5-12.2); Platelet Count 390 10*3/uL (140-440); RBC 5.21 10*6/uL (4.40-5.60); RDW 15.6 % (11.5-14.5); WBC 8.08 10*3/uL (4.50-10.00)
[2024-08-12 05:41] LABS: African American GFR (CKD) 78 (>60 ml/min/1.73 sqM); Anion Gap 7 mmol/L; Blood Urea Nitrogen 23 mg/dL (9-20); Calcium 9.3 mg/dL (8.4-10.2); Carbon Dioxide 28 mmol/L (22-30); Chloride 101 mmol/L (98-107); Glucose 180 mg/dL (74-99); Non-African American GFR(CKD) 67 (>60 ml/min/1.73 sqM); Potassium 4.4 mmol/L (3.5-5.1); Sodium 136 mmol/L (137-145)
[2024-08-12 06:11] LABS: Glucose,Whole Blood 216 mg/dL (70-110)
[2024-08-12 07:11] VITALS: RESP 16
[2024-08-12 11:23] LABS: Glucose,Whole Blood 272 mg/dL (70-110)
[2024-08-12] MEDS: ERTAPENEM 1 GM in SODIUM CHLORIDE 0.9% 50 ML IVPB SCH (11:59)
[2024-08-12 13:46] VITALS: BP 162/81; PULSE 74; TEMP 98.3
--- NOTE | 2024-08-12 13:59 | P.DS ---
Providers Date of admission: 08/03/24 23:49 Expected date of discharge: 08/12/24 Attending physician: Claudine Patel MD Consults: 08/04/24 01:09 Consult Physician Urgent Consulting Provider: Hu Mendoza Consult Reason/Comments: diabetic foot infection Do you want consulting provider notified?: Yes, Notify in am 08/05/24 07:54 Consult Physician Routine Consulting Provider: Patrick Bentley Consult Reason/Comments: syncope, HFpEF, your patient Do you want consulting provider notified?: Yes 08/05/24 08:53 Consult Physician Urgent Consulting Provider: Sowmya Pina Consult Reason/Comments: diabetic foot infection Do you want consulting provider notified?: Yes, Notify in am Primary care physician: Deyvi Hurtado Hospital Course: Discharge diagnosis: Osteomyelitis of right first metatarsal, and possibly second metatarsal Diabetic foot ulcer on the right History of osteomyelitis with MRSA and VRE positive Cellulitis of the right lower extremity S/p revision of right great toe amputation with excision of nonhealing wound and application of wound VAC on 08/09/24 Insulin-dependent diabetes mellitus Diabetic gastroparesis Persistent dysphagia to solids and liquids 1st degree burn on back Severe pulmonary hypertension Diastolic HFpEF not in exacerbation history of syncopal episode History of PE on Eliquis Mild hyponatremia, resolved Hypertension Atrial fibrillation Hyperlipidemia History of CAD Hospital Course: 58-year-old man PMH of insulin-dependent diabetes mellitus with peripheral neuropathy, HFpEF (EF 50-55%), history of right foot osteomyelitis MRSA and VRE positive, history of PE currently on Eliquis, CAD and heart cath on 03/23/2024 without placement of stent, severe pulmonary hypertension, GERD who is presenting to the emergency department due to chronic right foot infection in the presence of alonso on his back from a heating pad. Initial workup in the ED showed vitals Blood pressure 134/82, heart rate 99, respiratory 18, SpO2 97% on room air. X-ray right foot shows diffuse soft tissue swelling distal foot, with evidence of prior amputation; no radiographic evidence of acute osteomyelitis identified. At this point he was started on Rocephin and vancomycin. Further workup involved foot MRI showing previous 1st and 2nd toe amputation with a deep stump was extending to first metatarsal osteotomy region, underlying signal changes are compatible with extensive contiguous osteomyelitis of the first metatarsal sparing only the metatarsal base, additional findings suspicion for osteomyelitis also involving the distal aspect of the second metatarsal, diffuse soft tissue swelling and plantar muscle edema. Wound culture shows Staph aureus, E. coli (resistant to ceftriaxone) and Alcaligen. faecalis. Blood culture shows no growth at 72 hours. ID was consulted and his antibiotics were changed to cefepime and Flagyl. Vascular surgery was consulted and patient underwent revision of right great toe amputation with excision of nonhealing wound and application of wound VAC on 08/09/2024 for osteomyelitis. He then had a PICC line placed. He has been optimized for discharge home with home care. Patient requires a walker to aide in ambulation due to unsteady gait caused by a diabetic foot wound. Surgical great toe revision wound measuring 6 cm x 4 cm x 1 cm into subcutaneous tissue. Wound VAC to right foot change Thursday using black granulofoam. Wound vac settings: 125mmHG medium, continuous suction. Nonweightbearing to right foot Patient seen at bedside today and is feeling good and excited about discharge. Patient will be discharged today and is given a script for Metronidazole and Flagyl. Patient is given a handout for diabetic foot ulcers and is advised to be compliant with medications. Patient is advised to follow-up with PCP in 1-2 days, Market Research Consultant in 2 weeks, vascular surgeon on 08/24/24, wound center on 08/19/24 and Infectious disease specialist in 1 week. Vital signs are reviewed and stable General: nontoxic, no distress, appears at stated age Derm: warm, dry, intact Head: atraumatic, normocephalic, symmetric Eyes: EOMI, anicteric sclera Mouth: no lip lesion, mucus membranes moist Cardiovascular: S1 S2 reg, no murmur, rubs, or gallops Lungs: CTA bilateral, no rales, no accessory muscle use Abdominal: soft, non-tender to palpataion, no appreciable organomegaly Extremities: no gross muscle atrophy, no edema, no contractures Back: 1st degree alonso located across whole back with some minor blistering and scratch echevarria Foot: Right foot bandaged and wound VAC in place, erythema noted up to the midshin with associated warmth and slight tenderness to palpation, erythema on the mid allen on the left leg with tenderness to palpation Neuro: Alert, Oriented, CNII-XII grossly intact, gait normal Psych: well appearing, appropriate affect A total of 30 minutes of time were spent preparing this complex discharge summary. Patient was discharged on 08/12/24 at 0915. Dictation was produced using [employer] dictation software. please excuse any grammatical, word or spelling error Sylvester Weinberg MD PGY-1 IM I have seen and evaluated the patient today. Discussed with the resident and agree with the residents finding and plan as documented in the resident's note. Changes highlighted in blue font. Patient Condition at Discharge: Stable Plan - Discharge Summary Discharge Rx Participant: No New Discharge Prescriptions: New metroNIDAZOLE [Flagyl] 500 mg PO TID 30 Days #90 tab Cefepime [Maxipime] 2 gm IVPB Q8H 42 Days each Continue Metoclopramide [Reglan] 10 mg PO ACHS #60 tab Insulin Aspart [NovoLOG Flexpen] See Protocol SQ AC-TID Metoprolol Tartrate 25 mg PO BID Aspirin 81 mg PO DAILY Apixaban [Eliquis] 5 mg PO BID Cyclobenzaprine [Flexeril] 10 mg PO TID PRN #30 tab PRN Reason: Muscle Spasm Fenofibrate [Lofibra] 54 mg PO HS Tirzepatide [Mounjaro] 5 mg SQ TU Insulin Glargine,Hum.rec.anlog [Lantus Solostar Pen] 20 units SQ BID Discontinued Isosorbide Mononitrate ER [Imdur] 30 mg PO DAILY lisinopriL [Zestril] 5 mg PO DAILY Discharge Medication List Aspirin 81 mg PO DAILY 03/23/24 [History] Metoprolol Tartrate 25 mg PO BID 03/23/24 [History] Apixaban [Eliquis] 5 mg PO BID 04/16/24 [History] Cyclobenzaprine [Flexeril] 10 mg PO TID PRN #30 tab 06/01/24 [Rx] Metoclopramide [Reglan] 10 mg PO ACHS #60 tab 06/01/24 [Rx] Fenofibrate [Lofibra] 54 mg PO HS 08/04/24 [History] Insulin Aspart [NovoLOG Flexpen] See Protocol SQ AC-TID 08/04/24 [History] Insulin Glargine,Hum.rec.anlog [Lantus Solostar Pen] 20 units SQ BID 08/04/24 [History] Tirzepatide [Mounjaro] 5 mg SQ TU 08/04/24 [History] Cefepime [Maxipime] 2 gm IVPB Q8H 42 Days each 08/11/24 [Rx] metroNIDAZOLE [Flagyl] 500 mg PO TID 30 Days #90 tab 08/12/24 [Rx] Follow up Appointment(s)/Referral(s): Patrick Bentley DO [STAFF PHYSICIAN] - 2 Weeks (Office is not answering at time of discharge. Please call for follow-up appointment.) Deyvi Hurtado MD [Primary Care Provider] - 1-2 days ([facility] please call for follow-up appointment.) AIDA Thomas [NON-STAFF] - As Needed (Call [facility] if you have questions about the wound vac. ) Sowmya Pina DO [STAFF PHYSICIAN] - 08/24/24 11:00 am [facility], [NON-STAFF] - 1-2 Days ([facility] will call you to schedule the times for your in home nursing visits to place the wound vac and begin IV antibiotic teaching. Your first visit will be on 08/13/24.) [facility], [REFERRING] - As Needed ([facility] will deliver supplies to your house today between 6-8pm.) [facility] [NON-STAFF] - 08/19/24 10:00 am Hu Mendoza MD [STAFF PHYSICIAN] - 1 Week Patient Instructions/Handouts: Diabetic Foot Ulcers (DC) Activity/Diet/Wound Care/Special Instructions: Patient requires a walker to aide in ambulation due to unsteady gait caused by a diabetic foot wound. Surgical great toe revision wound measuring 6 cm x 4 cm x 1 cm into subcutaneous tissue. Wound VAC to right foot change Thursday using black granulofoam. Wound vac settings: 125mmHG medium, continuous suction. Nonweightbearing to right foot Discharge Disposition: HOME WITH HOME HEALTH SERVICES
--- NOTE | 2024-08-12 15:28 | P.PN ---
Subjective Progress Note Date: 08/12/24 Principal diagnosis: Reason for follow-up is right diabetic foot ulcer osteomyelitis Patient is a 58-year-old male with a past medical history significant for type 2 diabetes mellitus hypertension PE syncope reflux history of right diabetic foot infection/osteomyelitis and has been treated with multiple courses of antibiotic presented hospital worsening pain swelling redness of right foot concerning for diabetic foot infection with osteomyelitis.The patient is status post Revision of right great toe amputation with excision of nonhealing wound. Application of wound VAC completed on 08/09/2024 On today's evaluation that is 08/12/2024, the patient continues to be afebrile, the patient is on room air and breathing comfortably, the Pt denies having any chest pain or cough, the patient denies having any abdominal pain no vomiting or any diarrhea, pain to the right foot is currently controlled. Patient did have a white count of 8.08 creatinine 1.20 Objective - Vital Signs Vital signs: Vital Signs Temp 97.9 F 08/12/24 07:10 Pulse 85 08/12/24 07:10 Resp 16 08/12/24 07:10 BP 152/88 08/12/24 07:10 Pulse Ox 96 08/12/24 07:10 FiO2 35 08/09/24 12:45 Intake & Output 08/11/24 08/12/24 08/12/24 18:59 06:59 18:59 Output Total 650 Balance -650 Weight 101.605 kg Output: Urine 650 Other: Voiding Method Urinal Urinal Urinal # Voids 6 3 - Exam GENERAL DESCRIPTION: Middle-age male lying in bed in no distress RESPIRATORY SYSTEM: Unlabored breathing , decreased breath sounds at bases HEART: S1 S2 regular rate and rhythm , ABDOMEN: Soft , no tenderness EXTREMITIES: Right foot wound is covered with a wound VAC - Labs CBC & Chem 7: 08/12/24 04:41 08/12/24 04:41 Labs: Abnormal Lab Results - Last 24 Hours (Table) 08/11/24 08/11/24 08/11/24 Range/Units 11:12 16:50 20:44 Hgb (13.0-17.0) g/dL Hct (39.6-50.0) % MCV (80.0-97.0) fL MCH (27.0-32.0) pg MCHC (32.0-37.0) g/dL RDW (11.5-14.5) % MPV (9.5-12.2) fL Sodium (137-145) mmol/L BUN (9-20) mg/dL Glucose (74-99) mg/dL POC Glucose (mg/dL) 301 H 194 H 218 H (70-110) mg/dL 08/12/24 08/12/24 08/12/24 Range/Units 04:41 04:41 06:09 Hgb 12.3 L (13.0-17.0) g/dL Hct 39.2 L (39.6-50.0) % MCV 75.2 L (80.0-97.0) fL MCH 23.6 L (27.0-32.0) pg MCHC 31.4 L (32.0-37.0) g/dL RDW 15.6 H (11.5-14.5) % MPV 9.2 L (9.5-12.2) fL Sodium 136 L (137-145) mmol/L BUN 23 H (9-20) mg/dL Glucose 180 H (74-99) mg/dL POC Glucose (mg/dL) 216 H (70-110) mg/dL Assessment and Plan (1) Cellulitis of right lower limb Current Visit: Yes Status: Acute Code(s): L03.115 - CELLULITIS OF RIGHT LOWER LIMB SNOMED Code(s): 76977328473982067 (2) Diabetic foot infection Current Visit: Yes Status: Acute Code(s): E11.628 - TYPE 2 DIABETES MELLITUS WITH OTHER SKIN COMPLICATIONS; L08.9 - LOCAL INFECTION OF THE SKIN AND SUBCUTANEOUS TISSUE, UNSP SNOMED Code(s): 843842077 (3) Foot osteomyelitis, right Current Visit: No Status: Acute Code(s): M86.9 - OSTEOMYELITIS, UNSPECIFIED SNOMED Code(s): 0201755107838192 Plan: 1patient presented to hospital with increasing pain swelling redness to the right lower extremity in this patient who did have right diabetic foot ulcer on the plantar aspect now with evidence of secondary cellulitis involving the right foot and lower extremity will need to cover for the gram-positive as well as gram-negative pathogen as the patient has grown multiple pathogen from his wound in the past 2- MRI of the right foot has been suggestive of osteomyelitis involving the first and the second metatarsal did have elevated CRP and ESR 3-patient is status post Revision of right great toe amputation with excision of nonhealing wound. Application of wound VAC 4-patient local culture growing E. coli which is resistant to ceftriaxone sensitive to cefepime and MSSA, 5patient did have a PICC line placement currently waiting for outpatient IV antibiotic arrangement we will give him a dose of Invanz that should cover him for today so he can start his cefepime at home tomorrow Dictation was produced using [employer] dictation software. please excuse any grammatical, word or spelling errors. Time with Patient: Less than 30
== END 2024-08-12 16:31 | disposition home health service (06) | DRG 617 ==
LOC: EC 18:31 → 5NMEDONC 23:49 → 4SSUR 08-04 17:55
PROVIDERS: ADMIT Internal Medicine; ATTEND Internal Medicine
PROC: 0Y6M0Z9 Detachment at Right Foot, Partial 1st Ray, Open Approach (ICD-10-PCS; principal; 2024-08-09 11:20)
PROC: 02HV33Z Insertion of Infusion Device into Superior Vena Cava, Percutaneous Approach (ICD-10-PCS; 2024-08-10)
DX: E11.628 Type 2 diabetes mellitus with other skin complications (principal); E87.1 Hypo-osmolality and hyponatremia; I11.0 Hypertensive heart disease with heart failure; I27.22 Pulmonary hypertension due to left heart disease; R13.10 Dysphagia, unspecified; E11.43 Type 2 diabetes mellitus with diabetic autonomic (poly)neuropathy; D50.9 Iron deficiency anemia, unspecified; I07.1 Rheumatic tricuspid insufficiency; I50.32 Chronic diastolic (congestive) heart failure; M86.8X7 Other osteomyelitis, ankle and foot; L03.115 Cellulitis of right lower limb; Z16.19 Resistance to other specified beta lactam antibiotics; E11.621 Type 2 diabetes mellitus with foot ulcer; E11.69 Type 2 diabetes mellitus with other specified complication; E11.42 Type 2 diabetes mellitus with diabetic polyneuropathy; E11.649 Type 2 diabetes mellitus with hypoglycemia without coma; L97.512 Non-pressure chronic ulcer of other part of right foot with fat layer exposed; I48.91 Unspecified atrial fibrillation; Z79.4 Long term (current) use of insulin; B95.61 Methicillin susceptible Staphylococcus aureus infection as the cause of diseases classified elsewhere; B96.20 Unspecified Escherichia coli [E. coli] as the cause of diseases classified elsewhere; T21.14XA Burn of first degree of lower back, initial encounter; T21.24XA Burn of second degree of lower back, initial encounter; K31.84 Gastroparesis; E78.5 Hyperlipidemia, unspecified; I87.2 Venous insufficiency (chronic) (peripheral); I95.9 Hypotension, unspecified; I25.10 Atherosclerotic heart disease of native coronary artery without angina pectoris; T31.0 Burns involving less than 10% of body surface; X19.XXXA Contact with other heat and hot substances, initial encounter; Y92.009 Unspecified place in unspecified non-institutional (private) residence as the place of occurrence of the external cause; Z79.82 Long term (current) use of aspirin; Z79.01 Long term (current) use of anticoagulants; Z79.899 Other long term (current) drug therapy; Z86.14 Personal history of Methicillin resistant Staphylococcus aureus infection; Z87.891 Personal history of nicotine dependence; Z87.39 Personal history of other diseases of the musculoskeletal system and connective tissue; Z86.711 Personal history of pulmonary embolism; Z79.84 Long term (current) use of oral hypoglycemic drugs; Z88.8 Allergy status to other drugs, medicaments and biological substances; Z91.198 Patient's noncompliance with other medical treatment and regimen for other reason; Q66.89 Other specified congenital deformities of feet; Z89.411 Acquired absence of right great toe; Z89.421 Acquired absence of other right toe(s)
CPT/HCPCS: 36415; 36573; 64445; 64447; 80048; 80053; 80202; 83605; 85025; 85027; 85652; 86140; 86850; 86900; 86901; 87040; 87070; 87077; 87186; 87205; 93270; 93306; 96361; 96365; 96366; 96367; 96375; 96376; 99285

== ENCOUNTER 2024-09-02 10:55 | Emergency (ER) | payer MEDICARE ==
[2024-09-02 11:11] VITALS: BP 172/96; PULSE 79; RESP 20; TEMP 97.6
--- NOTE | 2024-09-02 12:10 | ED ---
Extremity Problem HPI - General Chief complaint: Extremity Problem,Nontraumatic Stated complaint: bilateral leg swelling Time Seen by Provider: 09/02/24 12:00 Source: patient, RN notes reviewed Mode of arrival: ambulatory Limitations: no limitations - History of Present Illness Initial comments: Quick Note: This is a 58-year-old male who presents to the emergency department for lower extremity cellulitis. Patient has been dealing with lower extremity cellulitis for the last several weeks. He is currently receiving cefepime IV. He followed up with wound care today and they were concerned that it was worsening and advised he come here for evaluation. Denies any discomfort associated with this. 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 - Related Data Home Medications Medication Instructions Recorded Confirmed Aspirin 81 mg PO DAILY 03/23/24 08/04/24 Metoprolol Tartrate 25 mg PO BID 03/23/24 08/04/24 Apixaban [Eliquis] 5 mg PO BID 04/16/24 08/04/24 Fenofibrate [Lofibra] 54 mg PO HS 08/04/24 08/04/24 Insulin Aspart [NovoLOG Flexpen] See Protocol SQ AC-TID 08/04/24 08/04/24 Insulin Glargine,Hum.rec.anlog 20 units SQ BID 08/04/24 08/04/24 [Lantus Solostar Pen] Tirzepatide [Mounjaro] 5 mg SQ TU 08/04/24 08/04/24 Previous Rx's Medication Instructions Recorded Cyclobenzaprine [Flexeril] 10 mg PO TID PRN #30 tab 06/01/24 Metoclopramide [Reglan] 10 mg PO ACHS #60 tab 06/01/24 Cefepime [Maxipime] 2 gm IVPB Q8H 42 Days each 08/11/24 metroNIDAZOLE [Flagyl] 500 mg PO TID 30 Days #90 tab 08/12/24 Allergies Allergy/AdvReac Type Severity Reaction Status Date / Time dapagliflozin [From Farxiga] Allergy Rash/Hives Verified 09/02/24 11:11 acetaminophen [From Nokomis] AdvReac Nausea & Verified 09/02/24 11:11 Vomiting hydrocodone [From Nokomis] AdvReac Nausea & Verified 09/02/24 11:11 Vomiting metformin AdvReac Nausea & Verified 09/02/24 11:11 Vomiting & Diarrhea Djcyplz-[id number] Reductase AdvReac liver Verified 09/02/24 11:11 Inhibitor problems [Qoqwpfb-Nwz-Zgl Reductase Inhibitor] Review of Systems ROS Statement: Those systems with pertinent positive or pertinent negative responses have been documented in the HPI. ROS Other: All systems not noted in ROS Statement are negative. Past Medical History Past Medical History: Heart Failure, Diabetes Mellitus, GERD/Reflux, Hypertension, Pulmonary Embolus (PE), Syncope Additional Past Medical History / Comment(s): occ. pain with swallowing at [place], hiatal hernia, dry skin, hx kidney stones, non healing foot ulcers History of Any Multi-Drug Resistant Organisms: MRSA, VRE Date of last positivie culture/infection: 04/07/24-VRE; 04/07/24-MRSA MDRO Source:: VRE-rt toe; MRSA-Rt Foot Past Surgical History: Orthopedic Surgery Additional Past Surgical History / Comment(s): cystoscopy/stent in urethra, olga carpal tunnel, trigger finger left thumb, rt thumb surgery, shoulder surgery Past Anesthesia/Blood Transfusion Reactions: No Reported Reaction Additional Past Anesthesia/Blood Transfusion Reaction / Comment(s): dizziness Past Psychological History: No Psychological Hx Reported Smoking Status: Former smoker Past Alcohol Use History: None Reported Past Drug Use History: Marijuana - Past Family History Mother Family Medical History: Hyperlipidemia Father Family Medical History: Diabetes Mellitus General Exam - General Exam Comments Initial Comments: Visual Physical Exam Vital signs reviewed General: Well-appearing, nontoxic, no acute distress. Head: Normocephalic, atraumatic Eyes: PERRLA, EOMI ENT: Airway patent Chest: Nonlabored breathing Skin: Bilateral lower extremity erythema Neuro: Alert and oriented 3 Musculoskeletal: No gross abnormalities Limitations: no limitations Course Vital Signs 09/02/24 11:09 Temperature 97.6 F Pulse Rate 79 Respiratory 20 Rate Blood Pressure 172/96 O2 Sat by Pulse 100 Oximetry Medical Decision Making - Medical Decision Making I performed the QuickNote portion of this chart. Signed Purvi Reece PA-C. Patient left AMA from the waiting room prior to full evaluation as well as completion and review of ordered testing. Disposition Clinical Impression: Lower extremity cellulitis Disposition: LEFT AGAINST MEDICAL ADVICE Referrals: Deyvi Hurtado MD [Primary Care Provider] - 1-2 days
--- NOTE | 2024-09-02 12:56 | XR ---
EXAMINATION TYPE: XR foot complete RT DATE OF EXAM: 09/02/2024 12:45 PM COMPARISON: 08/03/2024 CLINICAL INDICATION: Male, 58 years old with history of Redness and swelling, pain TECHNIQUE: 3 view(s) obtained. FINDINGS: There is dilatation of the first metatarsal and second digit. There is dislocation of the third digit proximal phalanx and third metatarsal. There are changes of the distal second metatarsal and third m etatarsal. Small plantar calcaneal heel spur calcification along the plantar fascia is present. Soft tissue swelling is present. Some soft tissue changes along the dorsum of the foot as well as the ampu tation site. No suspicious cortical erosions identified. Three-phase bone scan can be performed for s uspicion suspicion of osteomyelitis. IMPRESSION: 1. Amputations first and second digits with dislocation of the third digit. 2. No suspicious cortical erosion to suggest osteomyelitis. Follow-up as clinically indicated [facility], , 09/02/2024 12:54 PM
== END 2024-09-02 14:50 | disposition left against medical advice (07) ==
LOC: EC 10:55
DX: L03.116 Cellulitis of left lower limb (principal); L03.115 Cellulitis of right lower limb; Z87.891 Personal history of nicotine dependence; Z88.5 Allergy status to narcotic agent; Z88.8 Allergy status to other drugs, medicaments and biological substances; Z88.6 Allergy status to analgesic agent; Z53.29 Procedure and treatment not carried out because of patient's decision for other reasons
CPT/HCPCS: 99283